=== PATIENT | female | born 1990 | race Caucasian/White ===

== ENCOUNTER 2023-02-25 16:45 | Emergency (ER) | payer OTHER, SELFPAY ==
[2023-02-25 16:50] VITALS: BP 149/85; PULSE 82; RESP 18; TEMP 36.7; O2SAT 99
--- NOTE | 2023-02-25 17:00 | PC.NURSE ---
pt presents to ED because patient states for the last 2 days she has felt dehydrated because she states her kidneys are aching , her urine is dark in color, and she has had diarrhea for the last 2 days. pt did have gastric bypass surgery in february of 2020.
[2023-02-25] MEDS: 0.9 % SODIUM CHLORIDE 1,000 ML 999 ML IV (17:14)
[2023-02-25 17:49] LABS: Basophils Absolute Auto 0.1 10^3/uL (0.0-0.1); Basophils Percent Auto 0.6 % (0.2-2.0); Eosinophils Absolute Auto 0.2 10^3/uL (0.0-0.7); Eosinophils Percent Auto 2.4 % (0.9-7.0); Hematocrit 37.8 % (36.0-48.0); Hemoglobin 12.2 g/dL (12.0-16.0); Immature Granulocytes Abs Auto 0.04 10^3/uL (0.00-0.03); Immature Granulocytes Pct Auto 0.4 % (0.0-0.5); Lymphocytes Absolute Auto 2.2 10^3/uL (1.2-3.8); Lymphocytes Percent Auto 21.8 % (20.5-60.0); Mean Corpuscular HGB Conc 32.3 g/dL (29.9-35.2); Mean Corpuscular Hemoglobin 30.4 pg (26.7-34.0); Mean Corpuscular Volume 94.3 fL (81.0-99.0); Mean Platelet Volume 9.8 fL (9.5-13.5); Monocytes Absolute Auto 0.8 10^3/uL (0.3-0.8); Monocytes Percent Auto 7.7 % (1.7-12.0); Neutrophils Absolute Auto 6.8 10^3/uL (1.4-6.5); Neutrophils Percent Auto 67.1 % (43.0-75.0); Platelet Count 421 10^3/uL (150-450); Red Blood Count 4.01 10^6/uL (4.20-5.40); Red Cell Distribution Width 14.8 % (11.0-15.0); White Blood Count 10.2 10^3/uL (4.0-11.0)
[2023-02-25 18:05] LABS: Alanine Aminotransferase 33 U/L (14-59); Albumin Globulin Ratio 1.1; Albumin Level 3.9 g/dL (3.4-5.0); Alkaline Phosphatase 79 U/L (46-116); Anion Gap 13.7; Aspartate Amino Transferase 22 U/L (15-37); BUN Creatinine Ratio 15.3; Bilirubin Total 0.4 mg/dL (0.2-1.0); Calcium 8.6 mg/dL (8.5-10.1); Carbon Dioxide 25.4 mmol/L (21.0-32.0); Chloride 105 mmol/L (98-107); Estimated GFR (African America >60 (>=60); Estimated GFR (Non-African Ame >60 (>=60); Globulin 3.5 g/dL; Glucose 77 mg/dL (74-106); Potassium 4.1 mmol/L (3.5-5.1); Sodium 140 mmol/L (136-145); Total Protein 7.4 g/dL (6.4-8.2)
[2023-02-25 18:06] LABS: Clarity Urine SLIGHTLY CLOUDY (CLEAR); Color Urine RED (YELLOW)
[2023-02-25 18:07] LABS: Bilirubin Urine COLOR INTERFERENCE (NEGATIVE); Blood Urine COLOR INTERFERENCE (NEGATIVE); Glucose Urine UA COLOR INTERFERENCE mg/dL (NEGATIVE); Ketones Urine COLOR INTERFERENCE mg/dL (NEGATIVE); Leukocyte Esterase Urine COLOR INTERFERENCE (NEGATIVE); Nitrite Urine COLOR INTERFERENCE (NEGATIVE); Protein Urine COLOR INTERFERENCE mg/dL (NEG/TRACE); Specific Gravity Urine 1.025 (1.005-1.025); Urine Microscopic Indicated YES; Urobilinogen Urine COLOR INTERFERENCE EU/dL (0.2-1.0); pH Urine COLOR INTERFERENCE (5.0-9.0)
--- NOTE | 2023-02-25 18:10 | ED.GENADUL1 ---
HPI - General Adult General Chief complaint: Nausea/Vomiting/Diarrhea Stated complaint: Dehydrated Time Seen by Provider: 02/25/23 16:54 Source: patient History of Present Illness HPI narrative: Patient with diarrhea but no vomiting or nausea. She said that she has been hydrating but is still concerned that she is dehydrated. She denied any ill exposures, eating spoiled food, recent foreign travel or drinking non tap or non bottled water. She had blood in urine this morning and had some pain across the low back. She said that she passed a stone recently = 2 days ago. No abdominal pain. Related Data Home Medications Medication Instructions Recorded Confirmed dextroamphetamine-amphetamine 30 30 mg PO DAILY 02/25/23 02/25/23 mg tablet (Adderall) methocarbamol 500 mg tablet 500 mg PO .qhs 02/25/23 02/25/23 pregabalin 165 mg tablet, extended 165 mg PO DAILY 02/25/23 02/25/23 release 24 hr (Lyrica CR) Previous Rx's Medication Instructions Recorded ondansetron 4 mg disintegrating 4 mg PO Q6H PRN nausea and 02/25/23 tablet vomiting #14 tabs tamsulosin 0.4 mg capsule (Flomax) 0.4 mg PO DAILY #20 caps 02/25/23 Allergies Allergy/AdvReac Type Severity Reaction Status Date / Time acetaminophen [From Percocet] AdvReac Intermediate Verified 02/25/23 16:49 oxycodone [From Percocet] AdvReac Intermediate Verified 02/25/23 16:49 Exam Narrative Exam Narrative: Nurses notes and vital signs reviewed and patient is not hypoxic. afebrile General: Well-appearing and in no apparent distress. Skin: Warm, dry, no pallor noted. No rash to back. Eye: Pupils are equal, round and EOMI. No scleral icterus. Cardiovascular: Regular Rate and Rhythm without murmur, gallop or rub. Respiratory: No accessory muscle use or respiratory distress. Lungs are clear to auscultation, no wheezing, rales or rhonchi Back: No midline thoracic or lumbar vertebral tenderness. No CVA tenderness Musculoskeletal: normal ROM GI: Abdomen is soft, non-distended. Normal bowel sounds. No tenderness to palpation. No rebound, guarding, or rigidity noted. Neurological: A&O x4. No cranial nerve dysfunction observed. No truncal ataxia. Moves all extremities. Sensation intact. Psychiatric: Cooperative and interactive. Normal mood and affect. Constitutional Vital Signs, click to edit/add: Last Vital Signs Temp 98.1 F 02/25/23 16:50 Pulse 82 02/25/23 16:50 Resp 18 02/25/23 16:50 BP 149/85 H 02/25/23 16:50 Pulse Ox 99 02/25/23 16:50 O2 Del Method Room Air 02/25/23 16:50 Course Vital Signs Vital signs: Vital Signs Temperature 98.1 F 02/25/23 16:50 Pulse Rate 82 02/25/23 16:50 Respiratory Rate 18 02/25/23 16:50 Blood Pressure 149/85 H 02/25/23 16:50 Pulse Oximetry 99 02/25/23 16:50 Oxygen Delivery Method Room Air 02/25/23 16:50 Temperature 98.1 F 02/25/23 16:50 Pulse Rate 82 02/25/23 16:50 Respiratory Rate 18 02/25/23 16:50 Blood Pressure 149/85 H 02/25/23 16:50 Pulse Oximetry 99 02/25/23 16:50 Oxygen Delivery Method Room Air 02/25/23 16:50 Medical Decision Making MDM Narrative Medical decision making narrative: blood drawn and sent for testing. Urine also obtained and sent for testing. Urine had blood and therefore the urinalysis was not able to be obtained because of that. CBC and CMP were unremarkable. The patient felt better after receiving normal saline IV fluid and she was discharged home with a prescription for Zofran in case she should develop any nausea associated with her diarrhea and a prescription for Flomax. Lab Data Lab results reviewed: Yes I reviewed the patient's lab results Labs: Lab Results 02/25/23 02/25/23 Range/Units 16:55 17:10 WBC 10.2 (4.0-11.0) 10^3/uL RBC 4.01 L (4.20-5.40) 10^6/uL Hgb 12.2 (12.0-16.0) g/dL Hct 37.8 (36.0-48.0) % MCV 94.3 (81.0-99.0) fL MCH 30.4 (26.7-34.0) pg MCHC 32.3 (29.9-35.2) g/dL RDW 14.8 (11.0-15.0) % Plt Count 421 (150-450) 10^3/uL MPV 9.8 (9.5-13.5) fL Neut % (Auto) 67.1 (43.0-75.0) % Lymph % (Auto) 21.8 (20.5-60.0) % [place] % (Auto) 7.7 (1.7-12.0) % Eos % (Auto) 2.4 (0.9-7.0) % Baso % (Auto) 0.6 (0.2-2.0) % Neut # (Auto) 6.8 H (1.4-6.5) 10^3/uL Lymph # (Auto) 2.2 (1.2-3.8) 10^3/uL [place] # (Auto) 0.8 (0.3-0.8) 10^3/uL Eos # (Auto) 0.2 (0.0-0.7) 10^3/uL Baso # (Auto) 0.1 (0.0-0.1) 10^3/uL Abs Immat Gran (auto) 0.04 H (0.00-0.03) 10^3/uL Imm/Tot Granulo (auto) 0.4 (0.0-0.5) % Sodium 140 (136-145) mmol/L Potassium 4.1 (3.5-5.1) mmol/L Chloride 105 (98-107) mmol/L Carbon Dioxide 25.4 (21.0-32.0) mmol/L Anion Gap 13.7 BUN 9.0 (7.0-18.0) mg/dL Creatinine 0.59 (0.55-1.02) mg/dL Est GFR ( Amer) >60 (>=60) Est GFR (Non-Af Amer) >60 (>=60) BUN/Creatinine Ratio 15.3 Glucose 77 (74-106) mg/dL Calcium 8.6 (8.5-10.1) mg/dL Total Bilirubin 0.4 (0.2-1.0) mg/dL AST 22 (15-37) U/L ALT 33 (14-59) U/L Alkaline Phosphatase 79 (46-116) U/L Total Protein 7.4 (6.4-8.2) g/dL Albumin 3.9 (3.4-5.0) g/dL Globulin 3.5 g/dL Albumin/Globulin Ratio 1.1 Urine Color Red A (YELLOW) Urine Clarity Slightly cloudy A (CLEAR) Urine pH Color interference A (5.0-9.0) Ur Specific [place] 1.025 (1.005-1.025) Urine Protein Color interference A (NEG/TRACE) mg/dL Urine Glucose (UA) Color interference A (NEGATIVE) mg/dL Urine Ketones Color interference A (NEGATIVE) mg/dL Urine Occult Blood Color interference A (NEGATIVE) Urine Nitrite Color interference A (NEGATIVE) Urine Bilirubin Color interference A (NEGATIVE) Urine Urobilinogen Color interference A (0.2-1.0) EU/dL Ur Leukocyte Esterase Color interference A (NEGATIVE) Discharge Plan Discharge Chief Complaint: Nausea/Vomiting/Diarrhea Clinical Impression: Diarrhea, Kidney stone Patient Disposition: Home, Self-Care Time of Disposition Decision: 18:13 Prescriptions / Home Meds: New ondansetron 4 mg tablet,disintegrating 4 mg PO Q6H PRN (Reason: nausea and vomiting) Qty: 14 0RF tamsulosin [Flomax] 0.4 mg capsule 0.4 mg PO DAILY Qty: 20 0RF No Action pregabalin [Lyrica CR] 165 mg tablet extended release 24 hr 165 mg PO DAILY Rx Instructions: must administer with a meal/food dextroamphetamine-amphetamine [Adderall] 30 mg tablet 30 mg PO DAILY methocarbamol 500 mg tablet 500 mg PO .qhs Instructions: Kidney Stones (ED), Acute Diarrhea (ED) Stand Alone Forms: Portal Instructions Referrals: Sunny Maciel MD [Primary Care Provider] - 1 week
[2023-02-25 18:22] LABS: RBC Urine >100 #/HPF (0-2)
[2023-02-25 18:23] LABS: Bacteria Urine TRACE #/HPF (NONE SEEN); Cast Seen? NONE SEEN #/LPF (NONE SEEN); Crystals Seen? None Seen #/HPF (None Seen); Mucus Urine NONE SEEN (NONE SEEN); Squamous Epithelial Cell Urine FEW #/LPF (NONE/RARE); Urine Culture Indicated YES
[2023-02-25 18:25] VITALS: BP 137/90; PULSE 70; O2SAT 99
== END 2023-02-25 18:27 | disposition home or self-care (01) ==
PROVIDERS: Emergency Provider Emergency Medicine; PCP Family Medicine
DX: R19.7 Diarrhea, unspecified (principal); N20.0 Calculus of kidney; Z79.899 Other long term (current) drug therapy
CPT/HCPCS: 36415; 80053; 81001; 85025; 87086; 87507; 99283

== ENCOUNTER 2023-08-24 15:17 | Outpatient (OUT) | payer OTHER, SELFPAY ==
[2023-08-24 16:00] LABS: Basophils Absolute Auto 0.1 10^3/uL (0.0-0.1); Basophils Percent Auto 0.6 % (0.2-2.0); Eosinophils Absolute Auto 0.3 10^3/uL (0.0-0.7); Eosinophils Percent Auto 3.4 % (0.9-7.0); Hemoglobin 11.6 g/dL (12.0-16.0); Immature Granulocytes Abs Auto 0.02 10^3/uL (0.00-0.03); Immature Granulocytes Pct Auto 0.3 % (0.0-0.5); Lymphocytes Absolute Auto 2.3 10^3/uL (1.2-3.8); Lymphocytes Percent Auto 28.9 % (20.5-60.0); Mean Corpuscular HGB Conc 32.2 g/dL (29.9-35.2); Mean Corpuscular Hemoglobin 30.6 pg (26.7-34.0); Mean Platelet Volume 9.3 fL (9.5-13.5); Monocytes Absolute Auto 0.6 10^3/uL (0.3-0.8); Monocytes Percent Auto 6.9 % (1.7-12.0); Neutrophils Absolute Auto 4.8 10^3/uL (1.4-6.5); Neutrophils Percent Auto 59.9 % (43.0-75.0); Platelet Count 395 10^3/uL (150-450); Red Blood Count 3.79 10^6/uL (4.20-5.40); Red Cell Distribution Width 12.3 % (11.0-15.0)
[2023-08-24 16:11] LABS: Erythrocyte Sedimentation Rate 17 mm/hr (<=20)
[2023-08-24 16:18] LABS: Uric Acid 2.8 mg/dL (2.6-6.0)
[2023-08-24 16:20] LABS: Alanine Aminotransferase 39 U/L (14-59); Albumin Level 3.4 g/dL (3.4-5.0); Alkaline Phosphatase 91 U/L (46-116); Anion Gap 12.5; Aspartate Amino Transferase 26 U/L (15-37); BUN Creatinine Ratio 13.6; Bilirubin Total 0.2 mg/dL (0.2-1.0); C Reactive Protein <0.50 mg/dL (<=0.50); Carbon Dioxide 28.3 mmol/L (21.0-32.0); Chloride 105 mmol/L (98-107); Estimated GFR (African America >60 (>=60); Estimated GFR (Non-African Ame >60 (>=60); Globulin 3.5 g/dL; Glucose 103 mg/dL (74-106); Potassium 3.8 mmol/L (3.5-5.1); Sodium 142 mmol/L (136-145); Total Protein 6.9 g/dL (6.4-8.2)
[2023-08-26 05:07] LABS: Rheumatoid Factor (RF) <10.0 IU/mL (<14.0)
[2023-08-26 06:10] LABS: Antistreptolysin O Ab 217.5 IU/mL (0.0-200.0)
[2023-08-26 14:10] LABS: Antinuclear Antibodies, IFA Negative (.)
== END 2023-08-24 15:18 | disposition home or self-care (01) ==
LOC: LAB 15:18
PROVIDERS: PCP Family Medicine; Visit Provider Family Medicine
DX: M79.7 Fibromyalgia (principal); M16.9 Osteoarthritis of hip, unspecified; M17.9 Osteoarthritis of knee, unspecified
CPT/HCPCS: 36415; 80053; 84550; 85025; 85652; 86038; 86060; 86140; 86431

== ENCOUNTER 2023-10-18 08:46 | Outpatient (OUT) | payer OTHER, SELFPAY ==
--- NOTE | 2023-10-18 08:49 | CT_ITS ---
The [address] [address] Patient Name: AISHWARYA NEFF MRN: [id number] date: 1990 Sex: F Assigned Patient Location: MRI Current Patient Location: MRI Accession/Order Number: [id number] Exam Date: 10/18/2023 09:43 Report Date: 10/19/2023 05:57 At the request of: BIA FRANZ Procedure: CT hip LT wo con EXAMINATION: CT hip RT wo con, CT hip LT wo con HISTORY: Spina Bifida Q05.9, Pain In Hip COMPARISON: No relevant comparison available. TECHNIQUE: Multi-planar CT images were created without and/or with IV contrast according to examination type. Dose reduction techniques were achieved by using automated exposure control and/or adjustment of mA and/or kV according to patient size and/or use of iterative reconstruction technique. FINDINGS: BONES: No fracture, dislocation, or articular surface irregularity. No significant joint space narrowing. No bone lesion or appreciable developmental abnormality. SOFT TISSUES: Negative. No visible soft tissue swelling. EFFUSION: None visible. OTHER: Negative. CT/CT hip LT wo con IMPRESSION: 1. Normal CT appearance of the right and left hips. Electronically authenticated by: ALISON TONEY Date: 10/19/2023 05:57
--- NOTE | 2023-10-18 08:49 | MR_ITS ---
The [address] [address] Patient Name: AISHWARYA NEFF MRN: [id number] date: 1990 Sex: F Assigned Patient Location: MRI Current Patient Location: Accession/Order Number: [id number] Exam Date: 10/18/2023 09:00 Report Date: 10/19/2023 05:51 At the request of: BIA FRANZ Procedure: MR lumbar spine wo con EXAMINATION: MR lumbar spine wo con HISTORY: Spina Bifida Q05.9, Pain In Hip COMPARISON: No relevant comparison available. TECHNIQUE: A variety of imaging planes and parameters were utilized for visualization of suspected pathology. FINDINGS: For the purposes of numbering, sagittal T2 image # 8 extends from the T11 vertebral body superiorly to the S3 level inferiorly. PARASPINAL AREA: Normal with no visible mass. BONES: No fracture, pars defect, or osseous lesion. CORD/CAUDA EQUINA: Normal caliber, contour, and signal intensity. Cord terminates posterior to L1 DISC LEVELS: 12-L1: No significant disc/facet abnormality, spinal stenosis, or foraminal stenosis. L1-L2: No significant disc/facet abnormality, spinal stenosis, or foraminal stenosis. L2-L3: No significant disc/facet abnormality, spinal stenosis, or foraminal stenosis. L3-L4: No significant disc/facet abnormality, spinal stenosis, or foraminal stenosis. L4-L5: No significant disc/facet abnormality, spinal stenosis, or foraminal stenosis. L5-S1: Posterior central disc protrusion projecting 5 mm into the central canal without significant central canal or foramen narrowing. Moderate disc height reduction. Mild degenerative facet arthropathy bilaterally. MR/MR lumbar spine wo con IMPRESSION: 1. Appropriate termination of the spinal cord posterior to L1. Unremarkable cord and cauda equina. 2. L5-S1 posterior disc protrusion without significant central canal or foraminal stenosis. Electronically authenticated by: ALISON TONEY Date: 10/19/2023 05:51
--- NOTE | 2023-10-18 08:49 | CT_ITS ---
The [address] [address] Patient Name: AISHWARYA NEFF MRN: [id number] date: 1990 Sex: F Assigned Patient Location: MRI Current Patient Location: MRI Accession/Order Number: [id number] Exam Date: 10/18/2023 09:43 Report Date: 10/19/2023 05:57 At the request of: BIA FRANZ Procedure: CT hip RT wo con EXAMINATION: CT hip RT wo con, CT hip LT wo con HISTORY: Spina Bifida Q05.9, Pain In Hip COMPARISON: No relevant comparison available. TECHNIQUE: Multi-planar CT images were created without and/or with IV contrast according to examination type. Dose reduction techniques were achieved by using automated exposure control and/or adjustment of mA and/or kV according to patient size and/or use of iterative reconstruction technique. FINDINGS: BONES: No fracture, dislocation, or articular surface irregularity. No significant joint space narrowing. No bone lesion or appreciable developmental abnormality. SOFT TISSUES: Negative. No visible soft tissue swelling. EFFUSION: None visible. OTHER: Negative. CT/CT hip RT wo con IMPRESSION: 1. Normal CT appearance of the right and left hips. Electronically authenticated by: ALISON TONEY Date: 10/19/2023 05:57
== END 2023-10-18 08:47 | disposition home or self-care (01) ==
LOC: MRI 08:46
PROVIDERS: PCP Family Medicine; Visit Provider Family Medicine
DX: Q05.9 Spina bifida, unspecified (principal); M25.559 Pain in unspecified hip
CPT/HCPCS: 72148; 73700

== ENCOUNTER 2023-11-07 14:55 | Outpatient (RCR) | payer OTHER, SELFPAY | END 2023-11-08 16:23 | disposition home or self-care (01) | LOC: PT 14:55 | PROVIDERS: PCP Family Medicine; Visit Provider Family Medicine | DX: M16.9 Osteoarthritis of hip, unspecified (principal); M25.559 Pain in unspecified hip; M54.50 Low back pain, unspecified | CPT/HCPCS: 97162 ==

== ENCOUNTER 2023-11-18 10:05 | Outpatient (OUT) | payer OTHER, SELFPAY ==
--- NOTE | 2023-11-18 | XR_ITS ---
The [address] [address] Patient Name: AISHWARYA NEFF MRN: [id number] date: 1990 Sex: F Assigned Patient Location: Current Patient Location: Accession/Order Number: [id number] Exam Date: 11/18/2023 10:35 Report Date: 11/21/2023 07:54 At the request of: ROSA GRANDA Procedure: XR lumbar spine min 4V EXAMINATION: XR lumbar spine min 4V HISTORY: LUMBAR SPINE PAIN COMPARISON: No relevant comparison available. FINDINGS: BONES: Neutral projection demonstrates normal alignment of the lumbar spine with no acute fracture or spondylolisthesis. Mild degenerative spondylosis and facet osteoarthropathy. DISC SPACES: Normal. No significant disc height narrowing, subluxation, or endplate abnormality. PARASPINOUS: Negative. No paraspinous abnormality is seen. OTHER: No transient spondylolisthesis with flexion or extension XR/XR lumbar spine min 4V IMPRESSION: Mild degenerative changes with no dynamic instability Electronically authenticated by: SANDRA VERDIN Date: 11/21/2023 07:54
--- OUTSIDE RECORDS SUMMARY | 2023-11-18 10:14 | XMS_ITS | CCD ---
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 Name Role Phone FRANCIS SILVA Unavailable Unavailable MISC, DR GR Admitting Unavailable MISC, DR GR Attending Unavailable HOY, DR AMEZQUITA Primary Care Unavailable MISC, DR GR Consulting Unavailable MISC, DR GR Admitting Unavailable MISC, DR GR Attending Unavailable HOY, DR AMEZQUITA Primary Care Unavailable MISC, DR GR Consulting Unavailable GABRIELLEY, DR AMEZQUITA Admitting Unavailable HOY, DR AMEZQUITA Attending Unavailable GABRIELLEY, DR AMEZQUITA Primary Care Unavailable HOY, DR AMEZQUITA Consulting Unavailable OSEI, DR AMEZQUITA Primary Care Unavailable MICHELLE WHITNEY Admitting Unavailable DEVONTE, MICHELLE Attending Unavailable JAEAUDREY SWEENEY Consulting Unavailable MICHELLE WHITNEY Consulting Unavailable OSEI, DR AMEZQUITA Primary Care Unavailable PAY, DR ODOM Admitting Unavailable PAY, DR ODOM Attending Unavailable GRECHNY, TODD SIMONS Consulting Unavailable GABRIELLEY, DR AMEZQUITA Admitting Unavailable HOY, DR AMEZQUITA Attending Unavailable GABRIELLEY, DR AMEZQUITA Primary Care Unavailable GABRIELLEY, DR AMEZQUITA Consulting Unavailable WEST, DR SANDRA Ahmadi Consulting Unavailable CHINA, DR BOBO Admitting Unavailable CHINA, DR BOBO Attending Unavailable OSEI, DR AMEZQUITA Primary Care Unavailable CHINA, DR BOBO Consulting Unavailable CHINA, DR BOBO Admitting Unavailable CHINA, DR BOBO Attending Unavailable OSEI, DR AMEZQUITA Primary Care Unavailable CHINA, DR BOBO Consulting Unavailable OSEI, DR AMEZQUITA Admitting Unavailable OSEI, DR AMEZQUITA Attending Unavailable OSEI, DR AMEZQUITA Primary Care Unavailable OSEI, DR AMEZQUITA Consulting Unavailable ZIEBER, DR ALISON Rico Consulting Unavailable Bia Maciel MD Primary Care Provider [phone] JAROD WEEKS Attending Unavailable BIA MACIEL Referring Unavailable BIA MACIEL Primary Care Unavailable JAROD WEEKS Attending Unavailable HOY, BIA M Referring Unavailable HOY, BIA M Primary Care Unavailable JAROD WEEKS Referring Unavailable HOY, BIA M Primary Care Unavailable HOY, BIA M Referring Unavailable HOY, BIA M Primary Care Unavailable EMCH, LAURENT NOLAN Referring Unavailabl e HOY, BIA M Primary Care Unavailable EMCH, LAURENT NOLAN Referring Unavailabl e HOY, BIA M Primary Care Unavailable EMCH, LAURENT NOLAN Referring Unavailabl e HOY, BIA M Primary Care Unavailable EMCH, LAURENT NOLAN Referring Unavailabl e HOY, BIA M Primary Care Unavailable EMCH, LAURENT NOLAN Referring Unavailabl e HOY, BIA M Primary Care Unavailable Unavailable Primary Care Provider UnavailWILL Espinosa Attending Unavailable DEIRDRE CHAVEZ Attending Unavailable OSEI, BIA M Referring Unavailable Allergies Allergy Classification Reported Allergen(s) Allergy Type Date of Onset Reaction(s) Facility (3 sources) acetaminophen / oxyCODONE; Translations: [OXYCODONE-ACETAM INOPHEN] Drug Allergy 8 [facility] Repository (1 source) Acetaminophen / oxyCODONE Drug Allergy 5 [facility] Repository (3 sources) oxyCODONE; Translations: [OXYCODONE HCL] Drug Allergy 2 Itching, GI Disturbance [facility] Medications Current Medications Medication Drug Class(es) Dates Sig (Normalized) Sig (Original) amphetamine aspartate 7.5 mg / amphetamine sulfate 7.5 mg / dextroamphetamine saccharate 7.5 mg / dextroamphetamine sulfate 7.5 mg oral tablet (2 sources) Central Nervous System Stimulant Start: 10-03-2023 take 1 tablet by mouth once Amphetamine-Dext roamphetamine (ADDERALL) 30 mg tablet Take 1 tablet by mouth every afternoon. 0 10/03/2023 Active Start: 08-19-2022 take 1 tablet by kelly th in the morning dextroamphetamine-amphetamine (ADDERALL) 30 mg tablet Take 1 tablet (30 mg total) by mouth in the morning. 0 08/19/2022 Active cetirizine hydrochloride 10 mg oral tablet (1 source) Histamine-1 Receptor Antagonist Start: 11-02-2022 take 1 tablet by mouth in the morning cetirizine (ZyrTEC) 10 mg tablet Indications: Allergic rhinitis due to animal dander Take 1 tablet (10 mg total) by mouth in the morning. 90 tablet 3 11/02/2022 Active [id number] 0.3 ml EPINEPHrine 1 mg/ml auto-injector (1 source) alpha-Adrenergic Agonist, beta-Adrenergic Agonist, Catecholamine Start: 11-02-2022 EPINEPHrine (EPIPEN) 0.3 mg/0.3 mL auto-injector Indications: Adverse reaction to food, initial encounter Inject 0.3 mL (0.3 mg total) into the appropriate muscle as needed (anaphylaxis). 2 each 1 11/02/2022 Active ergocalciferol 1.25 mg oral capsule (1 source) Provitamin D2 Compound Start: 08-31-2022 ergocalciferol (VITAMIN D2) 1,250 mcg (50,000 unit) capsule Indications: Vitamin D deficiency Capsule weekly for 8 weeks then once monthly 12 capsule 0 08/31/2022 Active fluticasone propionate 0.05 mg/actuat metered dose nasal spray (1 source) Corticosteroid Start: 11-02-2022 take 2 spray(s) nasal route in the morning fluticasone propionate (FLONASE) 50 mcg/actuation nasal spray Indications: Allergic rhinitis due to animal dander Administer 2 sprays into each nostril in the morning. 16 mL 12 11/02/2022 Active methocarbamol 750 mg oral tablet (3 sources) Muscle Relaxant Start: 09-08-2023 take 1 tablet by mouth once daily at bedtime methocarbamol (ROBAXIN) 750 mg tablet Take 750 mg by mouth daily at bedtime. 0 09/08/2023 Active Start: 11-16-2022 End: 05-31-2023 take 1 tablet by mouth once daily at bedtime methocarbamoL (ROBAXIN) 500 mg tablet Indications: Fibromyalgia Take 1 tablet (500 mg total) by mouth once daily at bedtime. 90 tablet 1 05/31/2023 Active Naltrexone (1 source) Opioid Antagonist take 4 mg by mouth in the morning naltrexone HCl (NALTREXONE ORAL) Take 4 mg by mouth in the morning. 0 Active pregabalin 75 mg oral capsule (3 sources) Start: 09-08-2023 take 1 capsule by mouth once daily in the evening pregabalin (LYRICA) 75 mg capsule TAKE 1 CAPSULE BY MOUTH ONCE DAILY at EIGHT IN THE EVENING 0 09/08/2023 Active Start: 05-31-2023 pregabalin (LY JORDAN) 50 mg capsule Indications: Fibromyalgia One capsule at 8 PM each night 90 capsule 1 05/31/2023 Active Start: 11-16-2022 End: 05-31-2023 pregabalin (LYRICA) 25 mg ca psule Indications: Fibromyalgia One capsule at 8 PM each night 30 capsule 5 11/16/2022 05/31/2023 Discontinued (Reorder) vitamin b12 1 mg/ml injectable solution (2 sources) Vitamin B12 Start: 09-21-2022 End: 05-31-2023 cyanocobalamin (VITAMIN B-12) 1,000 mcg/mL injection Indications: Vitamin B 12 deficiency One 1000 mcg every other day for 10 days,then once weekly for 4 weeks then once monthly 3 mL 3 05/31/2023 Active Completed/Discontinued Medications Medication Drug Class(es) Dates Sig (Normalized) Sig (Original) Lidocaine (4 sources) Antiarrhythmic, Amide Local Anesthetic Start: 05-31-2023 End: 05-31-2023 lidocaine (XYLOCAINE) 10 mg/mL (1 %) injection 40 mg Start: 05-31-2023 End: 05-31-2023 lidocaine (XYLOCAINE) 10 mg/ mL (1 %) injection 40 mg 1 ml triamcinolone acetonide 40 mg/ml injection (4 sources) Corticosteroid Start: 05-31-2023 End: 05-31-2023 triamcinolone acetonide (KENALOG-40) injection 40 mg Problems Active Problems Problem Classification Problem Date Documented Da te Episodic/Chronic Deficiency and other anemia (1 source) Iron deficiency anemia secondary to blood loss (chronic); Translations: [Iron deficiency anemia secondary to blood loss (chronic)] Onset: 09-21-2022 Chronic Deficiency and other anemia (1 source) Anemia, unspecified; Translations: [ANEMIA UNSPECIFIED] Onset: 09-16-2021 Episodic Diabetes mellitus without complication (1 source) Other abnormal glucose; Translations: [OTHER ABNORMAL GLUCOSE] Onset: 09-16-2021 Episodic E Codes: Cut/pierceb (1 source) Contact with knife, initial encounter; Translations: [CONTACT WITH KNIFE INITIAL ENC] Onset: 11-25-2021 Episodic E Codes: Unspecified (1 source) Activity, cooking and baking; Translations: [ACTIVITY COOKING AND BAKING] Onset: 11-25-2021 Episodic Essential hypertension (1 source) Essential (primary) hypertension; Translations: [ESSENTIAL PRIMARY HYPERTENSION] Onset: 11-25-2021 Chronic Headache; including migraine (4 sources) Migraine, unspecified, not intractable, without status migrainosus; Translations: [MIGRAINE UNS NOT INTRACT W/O SM] Onset: 10-01-2021 Chronic Joint disorders and dislocations; trauma-related (4 sources) Unspecified internal derangement of right knee; Translations: [UNS INTERNAL DERANGEMENT RIGHT KNEE] Onset: 12-08-2020 Chronic Malaise and fatigue (2 sources) Weakness; Translations: [Other fatigue] Onset: 11-06-2021 Episodic Menstrual disorders (2 sources) Menorrhagia; Translations: [Excessive and frequent menstruation with regular cycle] Onset: 10-07-2022 10-07-2022 Chronic Nonspecific chest pain (1 source) Other chest pain; Translations: [Other chest pain] Onset: 03-10-2018 Episodic Nutritional deficiencies (2 sources) Vitamin D deficiency, unspecified; Translations: [Vitamin D deficiency] Onset: 09-16-2021 09-21-2022 Chronic Open wounds of extremities (4 sources) Laceration without foreign body of left ring finger without damage to nail, initial encounter; Translations: [LAC NO FB LT RF NO DMG NAIL INITIAL] Onset: 11-23-2021 Episodic Other aftercare (1 source) Other technician terminal and repeater (current) drug therapy; Translations: [OTH MACHINE PIE MAKER CURRENT DRUG THERAPY] Onset: 11-25-2021 Episodic Other connective tissue disease (2 sources) Fibromyalgia; Translations: [Fibromyalgia] Onset: 09-21-2022 05-31-2023 Episodic Other connective tissue disease (2 sources) Trochanteric bursitis; Translations: [Trochanteric bursitis, right hip] Onset: 11-16-2022 05-31-2023 Episodic Other connective tissue disease (2 sources) Bursitis of knee; Translations: [Other bursitis of knee, unspecified knee] Onset: 11-16-2022 05-31-2023 Episodic Other gastrointestinal disorders (4 sources) Intestinal malabsorption, unspecified; Translations: [INTESTINAL MALABSORPTION UNS] Onset: 03-10-2021 Chronic Other gastrointestinal disorders (1 source) Celiac disease; Translations: [CELIAC DISEASE] Onset: 03-17-2021 Chronic Other nervous system disorders (4 sources) Anesthesia of skin; Translations: [ANESTHESIA OF SKIN] Onset: 11-03-2021 Episodic Other nervous system disorders (1 source) Unspecified disturbances of skin sensation; Translations: [UNS DISTURBANCES OF SKIN SENSATION] Onset: 10-02-2021 Episodic Other non-traumatic joint disorders (1 source) Hypermobility of joint; Translations: [Joint derangement, unspecified] 10-19-2023 Episodic Residual codes; unclassified (1 source) Acquired absence of other specified parts of digestive tract; Translations: [ACQ ABSENCE OTH PART DIGESTV TRACT] Onset: 11-25-2021 Episodic Unclassified (1 source) Outpatient Infusion Onset: 09-19-2023 Past or Other Problems Problem Classification Problem Date Documented Da te Episodic/Chronic Abdominal pain (4 sources) Unspecified abdominal pain; Translations: [UNSPECIFIED ABDOMINAL PAIN] Onset: 01-02-2021 Episodic Allergic reactions (1 source) Urticaria; Translations: [Urticaria, unspecified] Onset: 09-21-2022 09-21-2022 Episodic Calculus of urinary tract (1 source) Calculus of kidney; Translations: [CALCULUS OF KIDNEY] Onset: 01-06-2021 Episodic Deficiency and other anemia (5 sources) Iron deficiency anemia, unspecified; Translations: [IRON DEFICIENCY ANEMIA UNSPECIFIED] Onset: 02-10-2021 Episodic Deficiency and other anemia (1 source) Iron deficiency anemia; Translations: [Iron deficiency anemia, unspecified] Onset: 09-21-2022 09-21-2022 Episodic Diseases of mouth; excluding dental (1 source) Xerostomia; Translations: [Dry mouth, unspecified] Onset: 09-21-2022 09-21-2022 Episodic Immunizations and screening for infectious disease (2 sources) Encounter for immunization; Translations: [MEDICAL OFFICE REPRESENTATIVE antibody positive] Onset: 11-25-2021 09-21-2022 Episodic Nausea and vomiting (1 source) Nausea with vomiting, unspecified; Translations: [NAUSEA WITH VOMITING UNSPECIFIED] Onset: 01-06-2021 Episodic Nutritional deficiencies (3 sources) Cobalamin deficiency; Translations: [Deficiency of other specified B group vitamins] Onset: 09-21-2022 05-31-2023 Episodic Other connective tissue disease (1 source) Trochanteric bursitis, right hip; Translations: [Trochanteric bursitis, right hip] Onset: 11-16-2022 Episodic Other connective tissue disease (1 source) Trochanteric bursitis, left hip; Translations: [Trochanteric bursitis, left hip] Onset: 11-16-2022 Episodic Other connective tissue disease (2 sources) Fibromyalgia; Translations: [Fibromyalgia] Onset: 09-21-2022 Episodic Other connective tissue disease (1 source) Other bursitis of knee, unspecified knee; Translations: [Other bursitis of knee, unspecified knee] Onset: 11-16-2022 Episodic Other gastrointestinal disorders (1 source) Bariatric surgery status; Translations: [BARIATRIC SURGERY STATUS] Onset: 03-19-2021 Episodic Other skin disorders (1 source) Eruption; Translations: [Rash and other nonspecific skin eruption] Onset: 09-21-2022 09-21-2022 Episodic Results Test Name Value Interpretation Reference Range Facility XR HIPS BILAT W OR WO PELVIS 3-4 VWSon 09-13-2023 XR HIPS BILAT W OR WO PELVIS 3-4 VWS XR HIPS BILAT W OR WO PELVIS 3-4 VWS XR HIPS BILAT W OR WO PELVIS 3-4 VWS CLINICAL HISTORY: Left hip pain COMPARISON: None. FINDINGS: Frontal view of the pelvis and 2 views of each hip are obtained. Soft tissues: Nonobstructive bowel gas pattern with moderate amount of fecal residue mixed with air within the colon and rectum. Small calcified phlebolith in the right pelvis. Osseous structures: No acute fracture. No destructive osseous lesion. Joints: No dislocation or malalignment. S1 spina bifida. IMPRESSION: * No acute fracture or malalignment. Finalized by Shahnaz Hou MD on 09/13/2023 9:36 PM Normal [facility] CBC AND AUTO DIFFon 09-10-19 24 ABSOLUTE BASOPHIL 0.1 X10E9/L Normal 0.0-0.2 [facility] Comment on above: Performed By: #### 2 276-4, 2132-9, FEPR, 2284-8, CBCA #### [facility] ([id number]) [address], [address] [place] [address] ABSOLUTE NEUTROPHIL 3.8 X10E9/L Normal 1.5-6.6 [facility] Comment on above: Performed By: #### 2 276-4, 9, FEPR, 2283-12, CBCA #### [facility] ([id number]) [address], [address] [place] [address] Basophils/100 WBC (Bld) 0.9 % Normal [facility] Comment on above: Performed By: #### 2 276-4, 2132-01, FEPR, 2283-12, CBCA #### [facility] ([id number]) [address], [address] [place] [address] Eosinophils (Bld) [#/Vol] 0.1 10*3/uL Normal 0.0-0.4 [facility] Comment on above: Performed By: #### 2 276-4, 2132-01, FEPR, 2283-12, CBCA #### [facility] ([id number]) [address], [address] [place] [address] Eosinophils/100 WBC (Bld) 1.5 % Normal [facility] Comment on above: Performed By: #### 2 276-4, 2132-01, FEPR, 2283-12, CBCA #### [facility] ([id number]) [address], [address] [place] [address] Erythrocyte distribution width (RBC) [Ratio] 13.0 % Normal 11.5-15.0 [facility] Comment on above: Performed By: #### 2 276-4, 2132-01, FEPR, 2283-12, CBCA #### [facility] ([id number]) [address], [address] [place] [address] Hematocrit (Bld) [Volume fraction] 38.3 % Normal 35-47 [facility] Comment on above: Performed By: #### 2 276-4, 9, FEPR, 2283-12, CBCA #### [facility] ([id number]) [address], [address] [place] [address] Hemoglobin (Bld) [Mass/Vol] 13.0 g/dL Normal 11.7-15.5 [facility] Comment on above: Performed By: #### 2 276-4, 2132-01, FEPR, 2283-12, CBCA #### [facility] ([id number]) [address], [address] [place] [address] Lymphocytes (Bld) [#/Vol] 1.5 10*3/uL Normal 1.0-3.5 [facility] Comment on above: Performed By: #### 2 276-4, 9, FEPR, 2283-12, CBCA #### [facility] ([id number]) [address], [address] [place] [address] Lymphocytes/100 WBC (Bld) 25.0 % Normal [facility] Comment on above: Performed By: #### 2 276-4, 2132-01, FEPR, 2283-12, CBCA #### [facility] ([id number]) [address], [address] [place] [address] MCH (RBC) [Entitic mass] 31.4 pg Normal 27-34 [facility] Comment on above: Performed By: #### 2 276-4, 9, FEPR, 2283-12, CBCA #### [facility] ([id number]) [address], [address] [place] [address] MCHC (RBC) [Mass/Vol] 34.1 g/dL Normal 32-36 [facility] Comment on above: Performed By: #### 2 276-4, 9, FEPR, 2283-12, CBCA #### [facility] ([id number]) [address], [address] [place] [address] MCV (RBC) [Entitic vol] 92 fL Normal 80-100 [facility] Comment on above: Performed By: #### 2 276-4, 9, FEPR, 2283-12, CBCA #### [facility] ([id number]) [address], [address] [place] [address] Monocytes (Bld) [#/Vol] 0.5 10*3/uL Normal 0-0.9 [facility] Comment on above: Performed By: #### 2 276-4, 2132-01, FEPR, 2283-12, CBCA #### [facility] ([id number]) [address] [place] [address] Monocytes/100 WBC (Bld) 8.6 % Normal [facility] Comment on above: Performed By: #### 2 276-4, 2132-01, FEPR, 2283-12, CBCA #### [facility] ([id number]) [address] [place] [address] Neutrophils/100 WBC (Bld) 64.0 % Normal [facility] Comment on above: Performed By: #### 2 276-4, 9, FEPR, 2283-12, CBCA #### [facility] ([id number]) [address], [address] [place] [address] Platelet mean volume (Bld) [Entitic vol] 7.6 fL Normal 7-12 [facility] Comment on above: Performed By: #### 2 276-4, 9, FEPR, 2283-12, CBCA #### [facility] ([id number]) [address], [address] [place] [address] Platelets (Bld) [#/Vol] 408 10*3/uL Normal 150-450 [facility] Comment on above: Performed By: #### 2 276-4, 9, FEPR, 228-8, CBCA #### [facility] ([id number]) [address], [facility] [address] [place] [address] RBC COUNT 4.16 X10E12/L Normal 3.80-5.20 [facility] Comment on above: Performed By: #### 2 276-4, 9, FEPR, 2283-8, CBCA #### [facility] ([id number]) [address], [address] [address] WBC (Bld) [#/Vol] 6.0 10*3/uL Normal 4.0-11.0 [facility] Comment on above: Performed By: #### 2 276-4, 9, FEPR, 2283-8, CBCA #### [facility] ([id number]) [address], [address] [address] FERRITINon 09-10-2023 Ferritin [Mass/Vol] 10 ng/mL Low 11-307 [facility] Comment on above: Performed By: #### 2 276-4, 2132-01, FEPR, 2283-8, CBCA #### [facility] ([id number]) [address] [address] Folate [Mass/Vol]on 09-10-19 24 FOLIC ACID 10.9 ng/mL Normal >5.8 [facility] Comment on above: Result Comment: NEW REFERENCE RANGE Performed By: #### 2 276-4, 9, FEPR, 228-8, CBCA #### [facility] ([id number]) [address], [address] [address] IRON PROFILEon 09-10-2023 Iron [Mass/Vol] 92 ug/dL Normal 50-170 [facility] Comment on above: Performed By: #### 2 276-4, 2132-9, FEPR, 2284-8, CBCA #### [facility] ([id number]) [address], [address] [place] [address] IRON BINDING 421 ug/dL Normal 250-425 [facility] Comment on above: Performed By: #### 2 276-4, 2131-9, FEPR, 2284-8, CBCA #### [facility] ([id number]) [address], [address] [place] [address] IRON SATURATION 22 % SATURATION Normal 15-50 [facility] Comment on above: Performed By: #### 2 276-4, 2131-9, FEPR, 2284-8, CBCA #### [facility] ([id number]) [address], [address] [place] [address] VITAMIN B12on 09-10-2023 Cobalamin (Vitamin B12) [Mass/Vol] 195 pg/mL Normal 180-914 [facility] Comment on above: Performed By: #### 2 276-4, 9, FEPR, 2284-8, CBCA #### [facility] ([id number]) [address], [address] [place] [address] [facility] ANITBODY TESTon 022 MuSK Antibodies <1.0 Normal [facility] Comment on above: Result Comment: Jun montenegro Range: Negative: <1.0 Positive: 1.0 or higher A positive result, in the context of congruent clinical findings, confirms the diagnosis of autoimmune MuSK myasthenia gravis. COMMENTS: - Myasthenia gravis (MG) is caused by auto-antibodies against proteins of the neuromuscular junction. Most cases (about 90%) of generalized MG are anti- acetylcholine receptor (AChR) antibody-positive.(1) - Of generalized MG patients who lack anti-AChR antibodies (AChR-seronegative), about 40% are positive for Muscle- Specific Kinase (MuSK) antibody.(1,2) - Though a positive MuSK result is specific for the diagnosis of MuSK MG, a negative MuSK result does not rule out a MG diagnosis. - MuSK antibody levels have been shown to correlate with disease severity.(3) Serial measurements may be useful to follow treatment. References: 1. Ismael-Samantha S et al. J Autoimmunity 2014;52:90-100. 2. Luzmaria DUVAL et al. PNAS 2013;110(26);99813-12025. 3. Baldevi E et al. Neurology 2006;67:505-507. This test was developed and its performance characteristics determined by [employer]. It has not been cleared or approved by the Food and Drug Administration. Performed By: #### M ERIK #### [facility] [address] [place] [address] Dr. Evens Bowden ACETYLCHOLINE RECEPTOR AB [place] [facility] 11-10-2021 AChR Binding Abs, Serum <0.03 Normal 0.00-0.24 [facility] Comment on above: Result Comment: Nega tive: 0.00 - 0.24 Borderline: 0.25 - 0.40 Positive: >0.40 Performed By: #### P JULIA MURRAY UMWARRENRO #### [facility] [address] [place] [address] Patria Mis AChR Blocking Abs, Serum 10 % Normal 0-25 [facility] Comment on above: Result Comment: Nega tive: 0 - 25 Borderline: 26 - 30 Positive: >30 Performed By: #### P JULIA MURRAY UMICRO #### [facility] [address] [place], [place] [id number] Patria Mis AChR Modulating Ab CANRGT Normal [facility] Comment on above: Result Comment: Test not performed. Unable to perform test due to current unavailability of reagents or discontinuation of test. Negative: <21 Equivocal: 21 - 25 Positive: >25 Effective March 25, 2021, test 438125 AChR Modulating Abs, Serum was made non-orderable due to an ongoing reagent issue. Specimens are stored frozen and can be referenced to [facility] to provide an AChR Modulating Ab result. Please contact [facility] Customer Service to add on [phone] Acetylcholine Receptor Modulating Antibody, if warranted. Performed By: #### P JULIA MURRAY UMICRO #### [facility] [address] [address] Patria Abebe LYME DISEASE AB EIA W REFLEX on 11-04-2021 Lyme Total Antibody,EIA Negative Normal Negative [facility] Comment on above: Result Comment: Lyme Antibody Negative No laboratory evidence of infection with B. burgdorferi (Lyme disease). Negative results may occur in patients recently infected (greater than or equal to 14 days) with B. burgdorferi. If recent infection is suspected, repeat testing on a new sample collected in 7 to 14 days is recommended. Performed By: #### JULIA GARCIA UMICRO #### [facility] [address] [place] [address] Patria Escobaren AMISHA EIA W/REFLEX 5 BIOMARKER Son 11-03-2021 AMISHA Direct Positive Abnormal Negative [facility] Comment on above: Performed By: #### JULIA GARCIA UMICRO #### [facility] [address] [place] [address] Patria Abebe Anti-DNA (DS) Ab Qn <1 Normal 0-9 [facility] Comment on above: Result Comment: Nega tive <5 Equivocal 5 - 9 Positive >9 Performed By: #### JULIA GARCIA UMICRO #### [facility] [address] [place] [address] Patria Abebe MEDICAL OFFICE REPRESENTATIVE Antibodies 2.4 AI Critically high 0.0-0.9 [facility] Comment on above: Performed By: #### JULIA GARCIA UMICRO #### [facility] [address] [place] [address] Patria Abebe SEE BELOW: Comment Normal [facility] Comment on above: Result Comment: Auto antibody Disease Association Condition Frequency --------- Antinuclear Antibody, SLE, mixed connective Direct (AMISHA-D) tissue diseases --------- dsDNA SLE 40 - 60% --------- Chromatin Drug induced SLE 90% SLE 48 - 97% --------- SSA (Ro) SLE 25 - 35% Sjogren's Syndrome 40 - 70% Lupus 100% --------- SSB (La) SLE 10% Sjogren's Syndrome 30% --------- Sm (anti-Hunter) SLE 15 - 30% --------- MEDICAL OFFICE REPRESENTATIVE Mixed Connective Tissue Disease 95% (U1 nRNP, SLE 30 - 50% anti-ribonucleoprotein) Polymyositis and/or Dermatomyositis 20% --------- Scl-70 (antiDNA Scleroderma (diffuse) 20 - 35% topoisomerase) Crest 13% --------- Kristie-1 Polymyositis and/or Dermatomyositis 20 - 40% --------- Centromere B Scleroderma - Crest variant 80% Performed By: #### JULIA GARCIA UMICRO #### [facility] [address] [place] [address] Patria Mis Sjogren's Anti-SS-A <0.2 Normal 0.0-0.9 [facility] Comment on above: Performed By: #### JULIA GARCIA UMICRO #### [facility] [address] [place] [address] Patria Mis Sjogren's Anti-SS-B <0.2 Normal 0.0-0.9 [facility] Comment on above: Performed By: #### JULIA GARCIA UMICRO #### [facility] [address] [place] [address] Patria Mis Hunter Antibodies <0.2 Normal 0.0-0.[address] [facility] Comment on above: Performed By: #### JULIA GARCIA UMICRO #### [facility] [address] [place] [address] Patria Mis CMV AB, IGGon 11-03-2021 Cytomegalovirus (CMV) Ab, IgG 5.70 U/mL Critically high 0.00-0.59 [facility] Comment on above: Result Comment: Nega tive <0.60 Equivocal 0.60 - 0.69 Positive >0.69 Performed By: #### JULIA GARCIA UMICRO #### [facility] [address] [place] [address] Patria Abebe SHIRA-MOTA VIRUS (EBV) AB PROFILEon 11-03-2021 EBV Ab VCA, IgG 122.0 U/mL Critically high 0.0-17.9 [facility] Comment on above: Result Comment: Nega tive <18.0 Equivocal 18.0 - 21.9 Positive >21.9 Performed By: #### Hugo VALENCIA #### [facility] [address] [place] [address] Dr. Evens Bowden EBV Ab VCA, IgM <36.0 Normal 0.0-35.9 [facility] Comment on above: Result Comment: Nega tive <36.0 Equivocal 36.0 - 43.9 Positive >43.9 Performed By: #### Hugo VALENCIA #### [facility] [address] [place] [address] Dr. Evens Bowden EBV Nuclear Antigen Ab, IgG 244.0 U/mL Critically high 0.0-17.9 [facility] Comment on above: Result Comment: Nega tive <18.0 Equivocal 18.0 - 21.9 Positive >21.9 Performed By: #### Hugo CORREIAB #### [facility] [address] [place] [address] Dr. Evens Bowden Interpretation: Comment Normal [facility] Comment on above: Result Comment: EBV Interpretation Chart [place]: Antibody Present + Antibody Absent - Interpretation VCA-IgM VCA-IgG EBNA-IgG . No previous infection/ - - - Susceptible Primary infection (new + + - or recent) Past Infection +or- + + See comment below* + - - *Results indicate infection with EBV at some time however cannot predict the timing of the infection since antibodies to EBNA usually develop after primary infection or, alternatively, approximately 5-10% of patients with EBV never develop antibodies to EBNA. Performed By: #### Hugo VALENCIA #### [facility] [address] [place] [address] Dr. Evens Bowden RHEUMATOID FACTORon 11-04-19 RA Latex Turbid. <10.0 Normal <14.[address] [facility] Comment on above: Performed By: #### Hugo VALENCIA #### [facility] [address] [place], [place] [address] Dr. Evens Bowden CPKon 11-02-2021 CK [Catalytic activity/Vol] 150 U/L Normal 26-192 [facility] Comment on above: Performed By: #### C K #### [facility] [address] [place], [place] [address] Dr. Evens Bowden MRI BRAIN WO W CONon 022 MRI BRAIN WO W CON EXAMINATION: MRI BRA IN WO W CON HISTORY: Migraine COMPARISON: No relevant comparison available. TECHNIQUE: A variety of imaging planes and parameters were utilized for visualization of suspected pathology. Images were performed with 17 ml Dotarem contrast. FINDINGS: CEREBRUM: No edema, hemorrhage, mass, acute infarction, or inappropriate atrophy. CEREBELLUM: No edema, hemorrhage, mass, acute infarction, or inappropriate atrophy. BRAINSTEM: No edema, hemorrhage, mass, acute infarction, or inappropriate atrophy. CSF SPACES: Ventricles, cisterns, and sulci are appropriate for age. No hydrocephalus, subarachnoid hemorrhage, or mass. SKULL: No mass or other significant visible lesion. SINUSES: Mild to moderate bilateral maxillary and ethmoid sinus disease ORBITS: Limited views are unremarkable. OTHER: No abnormal meningeal or parenchymal enhancement. IMPRESSION: Bilateral ethmoid sinus disease No acute intracranial abnormality Electronically authenticated by: SANDRA VERDIN Date: 2021-10-01 13:31 Normal [facility] MRI CSPINE WO W CONon 2021 MRI CSPINE WO W CON EXAMINATION: MRI CSP INE WO W CON HISTORY: Migraine , extremity weakness COMPARISON: No relevant comparison available. TECHNIQUE: A variety of imaging planes and parameters were utilized for visualization of suspected pathology prior to and after 17 ml intravenous Dotarem injection. FINDINGS: CRANIOCERVICAL AREA: Normal foramen magnum with no Chiari malformation. PARASPINAL AREA: Normal with no visible mass. BONES: Normal alignment with no acute fracture or spondylolisthesis. No bone edema. CORD: Normal caliber, contour, and signal intensity. CERVICAL DISC LEVELS: C2-C3: No significant disc/facet abnormality, spinal stenosis, or foraminal stenosis. C3-C4: No significant disc/facet abnormality, spinal stenosis, or foraminal stenosis. C4-C5: No significant disc/facet abnormality, spinal stenosis, or foraminal stenosis. C5-C6: No significant disc/facet abnormality, spinal stenosis, or foraminal stenosis. C6-C7: No significant disc/facet abnormality, spinal stenosis, or foraminal stenosis. C7-T1:. No significant disc/facet abnormality, spinal stenosis, or foraminal stenosis. IMPRESSION: No acute abnormality. Electronically authenticated by: SANDRA VERDIN Date: 2021-10-01 13:52 Normal [facility] INSULINon 09-11-2021 Insulin 5.2 uIU/mL Normal 2.6-24.9 [facility] Comment on above: Performed By: #### P REGU, ERUR, UMICRO #### [facility] [address] [place] [address] Patria Abebe CBC AUTO DIFFon 09-10-2021 BASO # 0.0 103/ul Normal 0.0-0.1 [facility] Comment on above: Performed By: #### C BC #### [facility] [address] [place] [address] Dr. Evens Bowden Basophils/100 WBC (Bld) 0.7 % Normal 0.2-2.0 [facility] Comment on above: Performed By: #### C BC #### [facility] [address] [place] [address] Dr. Evens Bowden EO # 0.1 103/ul Normal 0.0-0.7 [facility] Comment on above: Performed By: #### C BC #### [facility] [address] [place] [address] Dr. Evens Bowden Eosinophils/100 WBC (Bld) 2.6 % Normal 0.9-7.0 [facility] Comment on above: Performed By: #### C BC #### [facility] [address] [place] [address] Dr. Evens Bowden Erythrocyte distribution width (RBC) [Ratio] 13.7 % Normal 11.0-15.0 [facility] Comment on above: Performed By: #### C BC #### [facility] [address] [place] [address] Dr. Evens Bowden Hematocrit (Bld) [Volume fraction] 33.2 % Critically low 36.0-48.0 [facility] Comment on above: Performed By: #### C BC #### [facility] [address] [place] [address] [address] Evens Bowden Hemoglobin (Bld) [Mass/Vol] 10.4 g/dL Critically low 12.0-16.0 [facility] Comment on above: Performed By: #### C BC #### [facility] [address] [place] [address] [address] Evens Bowden IG # 0.02 10e3/ul Normal 0.00-0.03 [facility] Comment on above: Performed By: #### C BC #### [facility] [address] [place] [address] Dr. Evens Bowden IG % 0.4 % Normal 0.0-0.5 [facility] Comment on above: Performed By: #### C BC #### [facility] [address] [place] [address] Dr. Evens Bowden LYMPH # 2.0 103/ul Normal 1.2-3.8 [facility] Comment on above: Performed By: #### C BC #### [facility] [address] [place] [address] Dr. Evens Bowden Lymphocytes/100 WBC (Bld) 37.7 % Normal 20.5-60.0 [facility] Comment on above: Performed By: #### C BC #### [facility] [address] [place] [address] Dr. Evens Bowden MANUAL DIFF REQ NO Normal [facility] Comment on above: Performed By: #### C BC #### [facility] [address] [place] [address] Dr. Evens Bowden MCH (RBC) [Entitic mass] 27.2 pg Normal 26.7-34.0 [facility] Comment on above: Performed By: #### C BC #### [facility] [address] [place] [address] Dr. Evens Bowden MCHC (RBC) [Mass/Vol] 31.3 g/dL Normal 29.9-35.2 [facility] Comment on above: Performed By: #### C BC #### [facility] [address] [place] [address] [address] Evens Bowden MCV (RBC) [Entitic vol] 86.9 fL Normal 81.0-99.0 [facility] Comment on above: Performed By: #### C BC #### [facility] [address] [place] [address] [address] Evens Bowden MONO # 0.4 103/ul Normal 0.3-0.8 [facility] Comment on above: Performed By: #### C BC #### [facility] [address] [place] [address] [address] Evens Bowden Monocytes/100 WBC (Bld) 7.1 % Normal 1.7-12.0 [facility] Comment on above: Performed By: #### C BC #### [facility] [address] [place] [address] Dr. Evens Bowden NEUT # 2.8 103/ul Normal 1.4-6.5 [facility] Comment on above: Performed By: #### C BC #### [facility] [address] [place] [address] Dr. Evens Bowden Neutrophils/100 WBC (Bld) 51.5 % Normal 43.0-75.0 [facility] Comment on above: Performed By: #### C BC #### [facility] [address] [place] [address] Dr. Evens Bowden Platelet mean volume (Bld) [Entitic vol] 8.6 fL Critically low 9.5-13.5 [facility] Comment on above: Performed By: #### C BC #### [facility] [address] [place] [address] Dr. Evens Bowden PLT 428 103/ul Normal 150-450 [facility] Comment on above: Performed By: #### C BC #### [facility] [address] [place] [address] [address] Evens Bowden RBC 3.82 106/ul Critically low 4.20-5.40 [facility] Comment on above: Performed By: #### C BC #### [facility] [address] [place] [address] [address] Evens Bowden WBC 5.4 103/ul Normal 4.0-11.0 [facility] Comment on above: Performed By: #### C BC #### [facility] [address] [place] [address] Dr. Evens Bowden CRPon 09-10-2021 CRP [Mass/Vol] mg/L Normal <=1.0 [facility] Comment on above: Performed By: #### C BC #### [facility] [address] [place] [address] [address] Evens Bowden FREE THYROXINE INDEX T7on FTI 2.52 Normal [facility] Comment on above: Performed By: #### C BC #### [facility] [address] [place] [address] Dr. Evens Bwoden T3U 35.0 % Normal 23.5-40.5 [facility] Comment on above: Performed By: #### C BC #### [facility] [address] [place] [address] Dr. Evens Bowden T4 [Mass/Vol] 7.20 ug/dL Normal 5.53-11.00 [facility] Comment on above: Performed By: #### C BC #### [facility] [address] [place] [address] Dr. Evens Bowden GLYCOHEMOGLOBIN A1Con 2021 ADA RECOMMENDATION ADA THERAPEUTIC TARG ET 6.0 - 7.0 ACTION SUGGESTED > 7.0 Normal [facility] Comment on above: Performed By: #### P JULIA MURRAY UMICRO #### [facility] [address] [place] [address] Patria Mis Glucose [Mass/Vol] 117 mg/dL Normal [facility] Comment on above: Performed By: #### P JULIA MURRAY UMICRO #### [facility] [address] [place] [address] Patria Mis HbA1c (Bld) [Mass fraction] 5.7 % Normal <=6.0 [facility] Comment on above: Performed By: #### P REGU, SHOSHANAR, UMICRO #### [facility] [address] [place] [address] Patria Abebe IRONon 09-10-2021 Iron [Mass/Vol] 46.0 ug/dL Normal 37.0-170.0 [facility] Comment on above: Performed By: #### I MULUGETA PEARSON #### [facility] [address] [place] [address] [address] Evens Bowden LIPID PROFILEon 09-10-2021 CHOL-HDL RATIO NORM SEE BELOW Normal [facility] Comment on above: Result Comment: 3.3 - 4.4 LOW RISK 4.4 - 7.1 AVERAGE RISK 7.1 - 11.0 MODERATE RISK >11.0 HIGH RISK Performed By: #### C MP, TSH, T7, LIPID, CRP #### [facility] [address] [place] [address] [address] Evens Bowden Cholesterol [Mass/Vol] 130 mg/dL Normal <=200 [facility] Comment on above: Performed By: #### C MP, TSH, T7, LIPID, CRP #### [facility] [address] [place] [address] [address] Evens Bowden Cholesterol in HDL [Mass/Vol] 53 mg/dL Normal 40-60 [facility] Comment on above: Performed By: #### C MP, TSH, T7, LIPID, CRP #### [facility] [address] [place] [address] [address] Evens Bowden Cholesterol in LDL [Mass/Vol] 69.2 mg/dL Normal [facility] Comment on above: Performed By: #### C MP, TSH, T7, LIPID, CRP #### [facility] [address] [place] [address] [address] Evens Bowden Cholesterol.total/C holesterol in HDL [Mass ratio] 2.5 {ratio} Normal [facility] Comment on above: Performed By: #### C MP, TSH, T7, LIPID, CRP #### [facility] [address] [place] [address] [address] Evens Bowden HDL NORMAL > or = 60 mg/dl - LO W CARDIOVASCULAR RISK <40 mg/dl - HIGH CARDIOVASCULAR RISK Normal [facility] Comment on above: Performed By: #### C MP, TSH, T7, LIPID, CRP #### [facility] [address] [place] [address] [address] Evens Bowden LDL CALC NORMAL SEE BELOW Normal [facility] Comment on above: Result Comment: <100 mg/dl OPTIMAL 100 - 129 mg/dl NEAR OR ABOVE OPTIMAL 130 - 159 mg/dl BORDERLINE HIGH 160 - 189 mg/dl HIGH >190 mg/dl VERY HIGH Performed By: #### C MP, TSH, T7, LIPID, CRP #### [facility] [address] [place] [address] [address] Evens Bowden Triglyceride [Mass/Vol] 39 mg/dL Normal <=150 [facility] Comment on above: Performed By: #### C MP, TSH, T7, LIPID, CRP #### [facility] [address] [place] [address] [address] Evens Bowden VLDL CALC 7.8 mg/dL Normal [facility] Comment on above: Performed By: #### C MP, TSH, T7, LIPID, CRP #### [facility] [address] [place] [address] [address] Evens Bowden PROF 14(COMP METB)on 022 Albumin [Mass/Vol] 4.0 g/dL Normal 3.4-5.0 [facility] Comment on above: Performed By: #### C MP, TSH, T7, LIPID, CRP #### [facility] [address] [place] [address] [address] Evens Bowden Albumin/Globulin [Mass ratio] 1.1 {ratio} Normal [facility] Comment on above: Performed By: #### C MP, TSH, T7, LIPID, CRP #### [facility] [address] [place] [address] [address] Evens Bowden ALP [Catalytic activity/Vol] 84 U/L Normal 46-116 [facility] Comment on above: Performed By: #### C MP, TSH, T7, LIPID, CRP #### [facility] [address] [place] [address] [address] Evens Bowden ALT [Catalytic activity/Vol] 33 U/L Normal 14-59 [facility] Comment on above: Performed By: #### C MP, TSH, T7, LIPID, CRP #### [facility] [address] [place] [address] Dr. Evens Bowden Anion gap [Moles/Vol] 12.1 mmol/L Normal [facility] Comment on above: Performed By: #### C MP, TSH, T7, LIPID, CRP #### [facility] [address] [place] [address] Dr. Evens Bowden AST [Catalytic activity/Vol] 18 U/L Normal 15-37 [facility] Comment on above: Performed By: #### C MP, TSH, T7, LIPID, CRP #### [facility] [address] [place] [address] Dr. Evens Bowden Bilirubin [Mass/Vol] 0.5 mg/dL Normal 0.2-1.3 [facility] Comment on above: Performed By: #### C MP, TSH, T7, LIPID, CRP #### [facility] [address] [place] [address] Dr. Evens Bowden Calcium [Mass/Vol] 8.2 mg/dL Critically low 8.5-10.1 [facility] Comment on above: Performed By: #### C MP, TSH, T7, LIPID, CRP #### [facility] [address] [place] [address] Dr. Evens Bowden Chloride [Moles/Vol] 105 mmol/L Normal 98-107 [facility] Comment on above: Performed By: #### C MP, TSH, T7, LIPID, CRP #### [facility] [address] [place] [address] Dr. Evens Bowden CO2 [Moles/Vol] 26.3 mmol/L Normal 22.0-30.[address] [facility] Comment on above: Performed By: #### C MP, TSH, T7, LIPID, CRP #### [facility] [address] [place] [address] Dr. Evens Bowden Creatinine [Mass/Vol] 0.62 mg/dL Normal 0.52-1.04 [facility] Comment on above: Performed By: #### C MP, TSH, T7, LIPID, CRP #### [facility] [address] [place] [address] Dr. Evens Bowden EGFR-AF ROMANIAN >60 Normal >=[address] [facility] Comment on above: Performed By: #### C MP, TSH, T7, LIPID, CRP #### [facility] [address] [place] [address] Dr. Evens Bowden EGFR-NON AF ROMANIAN >60 Normal >=60 [facility] Comment on above: Performed By: #### C MP, TSH, T7, LIPID, CRP #### [facility] [address] [place] [address] Dr. Evens Bowden Globulin (S) [Mass/Vol] 3.5 g/dL Normal [facility] Comment on above: Performed By: #### C MP, TSH, T7, LIPID, CRP #### [facility] [address] [place] [address] Dr. Evens Bowden Glucose [Mass/Vol] 90 mg/dL Normal 74-106 [facility] Comment on above: Performed By: #### C MP, TSH, T7, LIPID, CRP #### [facility] [address] [place] [address] Dr. Evens Bowden Potassium [Moles/Vol] 4.4 mmol/L Normal 3.4-5.0 [facility] Comment on above: Performed By: #### C MP, TSH, T7, LIPID, CRP #### [facility] [address] [place] [address] Dr. Evens Bowden Protein [Mass/Vol] 7.5 g/dL Normal 6.1-8.2 [facility] Comment on above: Performed By: #### C MP, TSH, T7, LIPID, CRP #### [facility] [address] [place] [address] Dr. Evens Bowden Sodium [Moles/Vol] 139 mmol/L Normal 137-145 [facility] Comment on above: Performed By: #### C MP, TSH, T7, LIPID, CRP #### [facility] [address] [place] [address] Dr. Evens Bowden Urea nitrogen [Mass/Vol] 7.0 mg/dL Normal 7.0-18.0 [facility] Comment on above: Performed By: #### C MP, TSH, T7, LIPID, CRP #### [facility] [address] [place] [address] Dr. Evens Bowden Urea nitrogen/Creatinine [Mass ratio] 11.3 mg/mg Normal [facility] Comment on above: Performed By: #### C MP, TSH, T7, LIPID, CRP #### [facility] [address] [place] [address] Dr. Evens Bowden [facility] SED RATE 6 mm/hr Normal <=20 [facility] Comment on above: Performed By: #### M USKAB #### [facility] [address] [place] [address] Dr. Evens Bowden TSHon 09-10-2021 TSH 1.205 uIU/mL Normal 0.470-4.680 [facility] Comment on above: Performed By: #### C BC #### [facility] [address] [place] [address] Dr. Evens Bowden TSH RANGE SEE BELOW Normal [facility] Comment on above: Result Comment: <0.3 4 UIU/ml HYPERTHYROID 0.34-5.60 UIU/ml EUTHYROID >5.60 UIU/ml HYPOTHYROID Performed By: #### C BC #### [facility] [address] [place] [address] Dr. Evens Bowden VITAMIN D 25 OHon 09-10-2021 VIT D 25-OH 11.5 ng/mL Normal [facility] Comment on above: Performed By: #### I MICHEL, VITAD #### [facility] [address] [place] [address] Dr. Evens Bowden VIT D RANGES SEE BELOW Normal [facility] Comment on above: Result Comment: <20 ng/mL Vit D deficient 20 - <30 ng/mL Vit D insufficient 30 - 100 ng/mL Vit D sufficient >100 ng/mL Potential Toxicity Performed By: #### I MICHEL, VITAD #### [facility] [address] [place] [address] Dr. Evens Bowden VITAMIN B1 (THIAMINE)on 02-27 Vit. B1, Whole Blood 85.1 nmol/L Normal 66.5-200.0 [facility] Comment on above: Performed By: #### C BC #### [facility] [address] [place] [address] Dr. Evens Bowden CBC AUTO DIFFon 03-10-2021 BASO # 0.0 103/ul Normal 0.0-0.1 [facility] Comment on above: Performed By: #### Hugo VALENCIA #### [facility] [address] [place] [address] Dr. Evens Bowden Basophils/100 WBC (Bld) 0.8 % Normal 0.2-2.0 [facility] Comment on above: Performed By: #### Hugo VALENCIA #### [facility] [address] [place] [address] Dr. Evens Bowden EO # 0.2 103/ul Normal 0.0-0.7 [facility] Comment on above: Performed By: #### Hugo VALENCIA #### [facility] [address] [place] [address] Dr. Evens Bowden Eosinophils/100 WBC (Bld) 3.4 % Normal 0.9-7.0 [facility] Comment on above: Performed By: #### Hugo VALENCIA #### [facility] [address] [place] [address] Dr. Evens Bowden Erythrocyte distribution width (RBC) [Ratio] 13.2 % Normal 11.0-15.0 [facility] Comment on above: Performed By: #### Hugo VALENCIA #### [facility] [address] [place] [address] Dr. Evens Bowden Hematocrit (Bld) [Volume fraction] 34.2 % Critically low 36.0-48.0 [facility] Comment on above: Performed By: #### Hugo VALENCIA #### [facility] [address] [place] [address] Dr. Evens Bowden Hemoglobin (Bld) [Mass/Vol] 11.2 g/dL Critically low 12.0-16.0 [facility] Comment on above: Performed By: #### M MASOODB #### [facility] [address] [address] [address] Evens Bowden IG # 0.01 10e3/ul Normal 0.00-0.03 [facility] Comment on above: Performed By: #### M MASOODB #### [facility] [address] [address] [address] Evens Bowden IG % 0.2 % Normal 0.0-0.5 [facility] Comment on above: Performed By: #### M MASOODB #### [facility] [address] [place] [address] Dr. Evens Bowden LYMPH # 1.6 103/ul Normal 1.2-3.8 [facility] Comment on above: Performed By: #### M MASOODB #### [facility] [address] [address] [address] Evens Bowden Lymphocytes/100 WBC (Bld) 32.5 % Normal 20.5-60.0 [facility] Comment on above: Performed By: #### M MASOODB #### [facility] [address] [place] [address] Dr. Evens Bowden MANUAL DIFF REQ NO Normal [facility] Comment on above: Performed By: #### M MASOODB #### [facility] [address] [address] [address] Evens Bowden MCH (RBC) [Entitic mass] 30.6 pg Normal 26.7-34.0 [facility] Comment on above: Performed By: #### M MASOODB #### [facility] [address] [address] [address] Evens Bowden MCHC (RBC) [Mass/Vol] 32.7 g/dL Normal 29.9-35.2 [facility] Comment on above: Performed By: #### M MASOODB #### [facility] [address] [address] [address] Evens Bowden MCV (RBC) [Entitic vol] 93.4 fL Normal 81.0-99.0 [facility] Comment on above: Performed By: #### M MASOODB #### [facility] [address] [place] [address] Dr. Evens Bowden MONO # 0.5 103/ul Normal 0.3-0.8 [facility] Comment on above: Performed By: #### M MASOODB #### [facility] [address] [place] [address] Dr. Evens Bowden Monocytes/100 WBC (Bld) 10.7 % Normal 1.7-12.0 [facility] Comment on above: Performed By: #### M MASOODB #### [facility] [address] [place] [address] Dr. Evens Bowden NEUT # 2.6 103/ul Normal 1.4-6.5 [facility] Comment on above: Performed By: #### M MASOODB #### [facility] [address] [place] [address] Dr. Evens Bowden Neutrophils/100 WBC (Bld) 52.4 % Normal 43.0-75.0 [facility] Comment on above: Performed By: #### M MASOODB #### [facility] [address] [place] [address] Dr. Evens Bowden Platelet mean volume (Bld) [Entitic vol] 9.3 fL Critically low 9.5-13.5 [facility] Comment on above: Performed By: #### M KAB #### [facility] [address] [place] [address] Dr. Evens Bowden PLT 373 103/ul Normal 150-450 [facility] Comment on above: Performed By: #### M MASOODB #### [facility] [address] [place] [address] Dr. Evens Bowden RBC 3.66 106/ul Critically low 4.20-5.40 [facility] Comment on above: Performed By: #### M MASOODB #### [facility] [address] [place] [address] Dr. Evens Bowden WBC 5.0 103/ul Normal 4.0-11.0 [facility] Comment on above: Performed By: #### M USKAB #### [facility] [address] [place] [address] Dr. Evens Bowden FOLATEon 03-10-2021 FOLATE 7.50 ng/mL Normal >=2.76 [facility] Comment on above: Performed By: #### P REGJULIA Lang, UMICRO #### [facility] [address] [place] [address] Patria Mis IRON AND TIBCon 03-10-2021 % SATURATION 8.7 % Normal [facility] Comment on above: Performed By: #### P REGUSHOSHANAR, UMICRO #### [facility] [address] [place] [address] Patria Mis Iron [Mass/Vol] 29.0 ug/dL Critically low 37.0-170.0 [facility] Comment on above: Performed By: #### P REGJULIA Lang, UMICRO #### [facility] [address] [place] [address] Patria Mis TIBC DIRECT 332.0 ug/dL Normal 261.0-497.0 [facility] Comment on above: Performed By: #### P REGUSHOSHANAR, UMICRO #### [facility] [address] [place] [address] Patria Mis MAGNESIUMon 03-10-2021 Magnesium [Mass/Vol] 1.7 mg/dL Normal 1.6-2.3 [facility] Comment on above: Performed By: #### C BC #### [facility] [address] [place] [address] Dr. Evens Bowden PHOSPHORUSon 03-10-2021 Phosphate [Mass/Vol] 3.7 mg/dL Normal 2.5-4.5 [facility] Comment on above: Performed By: #### C BC #### [facility] [address] [place] [address] Dr. Evens Bowden PROF 14(COMP METB)on 021 Albumin [Mass/Vol] 3.6 g/dL Normal 3.5-5.0 [facility] Comment on above: Performed By: #### C BC #### [facility] [address] [place] [address] Dr. Evens Bowden Albumin/Globulin [Mass ratio] 1.1 {ratio} Normal [facility] Comment on above: Performed By: #### C BC #### [facility] [address] [place] [address] Dr. Evens Bowdne ALP [Catalytic activity/Vol] 91 U/L Normal 38-126 [facility] Comment on above: Performed By: #### C BC #### [facility] [address] [place] [address] Dr. Evens Bowden ALT [Catalytic activity/Vol] 31 U/L Normal 9-52 [facility] Comment on above: Performed By: #### C BC #### [facility] [address] [place] [address] Dr. Evens Bowden Anion gap [Moles/Vol] 12.5 mmol/L Normal [facility] Comment on above: Performed By: #### C BC #### [facility] [address] [place] [address] Dr. Evens Bowden AST [Catalytic activity/Vol] 22 U/L Normal 14-36 [facility] Comment on above: Performed By: #### C BC #### [facility] [address] [place] [address] Dr. Evens Bowden Bilirubin [Mass/Vol] 0.4 mg/dL Normal 0.2-1.3 [facility] Comment on above: Performed By: #### C BC #### [facility] [address] [place] [address] Dr. Evens Bowden Calcium [Mass/Vol] 8.2 mg/dL Critically low 8.4-10.2 [facility] Comment on above: Performed By: #### C BC #### [facility] [address] [place] [address] Dr. Evens Bowden Chloride [Moles/Vol] 106 mmol/L Normal 98-107 [facility] Comment on above: Performed By: #### C BC #### [facility] [address] [place] [address] Dr. Evens Bowden CO2 [Moles/Vol] 26.3 mmol/L Normal 22.0-30.[address] [facility] Comment on above: Performed By: #### C BC #### [facility] [address] [place] [address] Dr. Evens Bowden Creatinine [Mass/Vol] 0.57 mg/dL Normal 0.52-1.04 [facility] Comment on above: Performed By: #### C BC #### [facility] [address] [place] [address] Dr. Evens Bowden EGFR-AF ROMANIAN >60 Normal >=60 [facility] Comment on above: Performed By: #### C BC #### [facility] [address] [place] [address] Dr. Evens Bowden EGFR-NON AF ROMANIAN >60 Normal >=60 [facility] Comment on above: Performed By: #### C BC #### [facility] [address] [place] [address] Dr. Evens Bowden Globulin (S) [Mass/Vol] 3.4 g/dL Normal [facility] Comment on above: Performed By: #### C BC #### [facility] [address] [place] [address] Dr. Evens Bowden Glucose [Mass/Vol] 92 mg/dL Normal 74-106 [facility] Comment on above: Performed By: #### C BC #### [facility] [address] [place] [address] Dr. Evens Bowden Potassium [Moles/Vol] 3.8 mmol/L Normal 3.4-5.0 [facility] Comment on above: Performed By: #### C BC #### [facility] [address] [place] [address] Dr. Evens Bowden Protein [Mass/Vol] 7.0 g/dL Normal 6.1-8.2 [facility] Comment on above: Performed By: #### C BC #### [facility] [address] [place] [address] Dr. Evens Bowden Sodium [Moles/Vol] 141 mmol/L Normal 137-145 [facility] Comment on above: Performed By: #### C BC #### [facility] [address] [place] [address] Dr. Evens Bowden Urea nitrogen [Mass/Vol] 7.0 mg/dL Normal 7.0-17.0 [facility] Comment on above: Performed By: #### C BC #### [facility] [address] [place] [address] Dr. Evens Bowden Urea nitrogen/Creatinine [Mass ratio] 12.3 mg/mg Normal [facility] Comment on above: Performed By: #### C BC #### [facility] [address] [place] [address] Dr. Evens Bowden VITAMIN B12on 03-10-2021 Cobalamin (Vitamin B12) [Mass/Vol] 211.0 pg/mL Critically low 239.0-931.0 [facility] Comment on above: Performed By: #### P JULIA MURRAY UMWARRENRO #### [facility] [address] [place] [address] Patria Mis VITAMIN D 25 OHon 03-10-2021 VIT D 25-OH 15.8 ng/mL Normal [facility] Comment on above: Performed By: #### JULIA GARCIA UMICRO #### [facility] [address] [place] [address] Patria Mis VIT D RANGES SEE BELOW Normal [facility] Comment on above: Result Comment: <20 ng/mL Vit D deficient 20 - <30 ng/mL Vit D insufficient 30 - 100 ng/mL Vit D sufficient >100 ng/mL Potential Toxicity Performed By: #### P JULIA MURRAY UMICRO #### [facility] [address] [place] [address] Patria Mis VITAMIN D 25 OHon 02-10-2021 VIT D 25-OH 16.7 ng/mL Normal [facility] Comment on above: Performed By: #### Hugo CORREIAB #### [facility] [address] [place] [address] Dr. Evens Bowden VIT D RANGES SEE BELOW Normal [facility] Comment on above: Result Comment: <20 ng/mL Vit D deficient 20 - <30 ng/mL Vit D insufficient 30 - 100 ng/mL Vit D sufficient >100 ng/mL Potential Toxicity Performed By: #### M ERIK #### [facility] [address] [place] [address] Dr. Evens Bowden CBC AUTO DIFFon 01-02-2021 BASO # 0.1 103/ul Normal 0.0-0.1 [facility] Comment on above: Performed By: #### C BC #### [facility] [address] [place] [address] Dr. Evens Bowden Basophils/100 WBC (Bld) 0.5 % Normal 0.2-2.0 [facility] Comment on above: Performed By: #### C BC #### [facility] [address] [place] [address] Dr. Evens Bowden EO # 0.0 103/ul Normal 0.0-0.7 [facility] Comment on above: Performed By: #### C BC #### [facility] [address] [place] [address] Dr. Evens Bowden Eosinophils/100 WBC (Bld) 0.4 % Critically low 0.9-7.0 [facility] Comment on above: Performed By: #### C BC #### [facility] [address] [place] [address] Dr. Evens Bowden Erythrocyte distribution width (RBC) [Ratio] 13.2 % Normal 11.0-15.0 [facility] Comment on above: Performed By: #### C BC #### [facility] [address] [place] [address] Dr. Evens Bowden Hematocrit (Bld) [Volume fraction] 35.3 % Critically low 36.0-48.0 [facility] Comment on above: Performed By: #### C BC #### [facility] [address] [place] [address] Dr. Evens Bowden Hemoglobin (Bld) [Mass/Vol] 11.6 g/dL Critically low 12.0-16.0 [facility] Comment on above: Performed By: #### C BC #### [facility] [address] [place] [address] Dr. Evens Bowden IG # 0.02 10e3/ul Normal 0.00-0.03 [facility] Comment on above: Performed By: #### C BC #### [facility] [address] [place] [address] Dr. Evens Bowden IG % 0.2 % Normal 0.0-0.5 [facility] Comment on above: Performed By: #### C BC #### [facility] [address] [place] [address] Dr. Evens Bowden LYMPH # 1.1 103/ul Critically low 1.2-3.8 [facility] Comment on above: Performed By: #### C BC #### [facility] [address] [place] [address] Dr. Evens Bowden Lymphocytes/100 WBC (Bld) 11.0 % Critically low 20.5-60.0 [facility] Comment on above: Performed By: #### C BC #### [facility] [address] [place] [address] Dr. Evens Bowden MANUAL DIFF REQ NO Normal [facility] Comment on above: Performed By: #### C BC #### [facility] [address] [place] [address] Dr. Evens Bowden MCH (RBC) [Entitic mass] 30.5 pg Normal 26.7-34.0 [facility] Comment on above: Performed By: #### C BC #### [facility] [address] [place] [address] Dr. Evens Bowden MCHC (RBC) [Mass/Vol] 32.9 g/dL Normal 29.9-35.2 [facility] Comment on above: Performed By: #### C BC #### [facility] [address] [place] [address] Dr. Evens Bowden MCV (RBC) [Entitic vol] 92.9 fL Normal 81.0-99.0 [facility] Comment on above: Performed By: #### C BC #### [facility] [address] [place] [address] Dr. Evens Bowden MONO # 0.6 103/ul Normal 0.3-0.8 [facility] Comment on above: Performed By: #### C BC #### [facility] [address] [place] [address] Dr. Evens Bowden Monocytes/100 WBC (Bld) 6.2 % Normal 1.7-12.0 [facility] Comment on above: Performed By: #### C BC #### [facility] [address] [place] [address] Dr. Evens Bowden NEUT # 8.4 103/ul Critically high 1.4-6.5 [facility] Comment on above: Performed By: #### C BC #### [facility] [address] [place] [address] Dr. Evens Bowden Neutrophils/100 WBC (Bld) 81.7 % Critically high 43.0-75.0 [facility] Comment on above: Performed By: #### C BC #### [facility] [address] [place] [address] Dr. Evens Bowden Platelet mean volume (Bld) [Entitic vol] 10.0 fL Normal 9.5-13.5 [facility] Comment on above: Performed By: #### C BC #### [facility] [address] [place] [address] Dr. Evens Bowden PLT 317 103/ul Normal 150-450 [facility] Comment on above: Performed By: #### C BC #### [facility] [address] [place], [place] [id number] Dr. Evens Bowden RBC 3.80 106/ul Critically low 4.20-5.40 [facility] Comment on above: Performed By: #### C BC #### [facility] [address] [place] [address] Dr. Evens Bowden WBC 10.2 103/ul Normal 4.0-11.0 [facility] Comment on above: Performed By: #### C BC #### [facility] [address] [address] [address] ABD/PELVIS WO CONon 01-02 CT ABD/PELVIS WO CON EXAMINATION: CT ABD/PELVIS WO CON, 01/02/2021 9:42 AM EDT HISTORY: Right flank pain since 1:00 AM and fever since 2:00 AM. Difficulty and pain with urinating. COMPARISON: None. TECHNIQUE: CT scan of the abdomen and pelvis was performed without IV contrast. CT dose reduction technique was used, including Automated Exposure Control. FINDINGS: The lung bases are clear. Lower mediastinal structures are normal. The liver, spleen, adrenal glands, pancreas show normal unenhanced characteristics. Surgical changes of cholecystectomy. Surgical changes of gastric bypass. The left kidney is normal in size and appearance. The right kidney is mildly edematous and shows at least moderate hydronephrosis and hydroureter. However, no stones are clearly seen in the right ureter, although there are multiple phleboliths in the pelvis. The aorta has a normal course and caliber. The large and small bowel are normal caliber. Pelvic organs are normal. The urinary bladder is empty. There is no free air or free fluid and no inflammatory stranding is seen. No suspicious or destructive bone lesions are seen. IMPRESSION: Findings are most consistent with a recently passed stone on the right, although a lucent stone is also a possibility. Given the history of fever, recommend correlation with urinalysis to assess for possible associated pyelonephritis or cystitis. The rest of the exam is unremarkable within the limitations of a noncontrast study. Electronically authenticated by: AUDREY ROWE Date: 2021-01-02 10:13 Normal [facility] CULTURE URINEon 01-02-2021 CULTURE URINE Culture Observations : MODERATE GROWTH OF MIXED GENITAL SHEYLA. NO POTENTIAL PATHOGENS SEEN. Normal [facility] Comment on above: Performed By: #### M USKAB #### [facility] [address] [id number] Evens Bowden ER URINE PROFILEon Bilirubin Ql (U) SMALL Abnormal NEGATIVE [facility] Comment on above: Performed By: #### P REGU, ERUR, UMICRO #### [facility] [address] [address] Patria Mis Clarity (U) SL CLOUDY Abnormal CLEAR [facility] Comment on above: Performed By: #### P JULIA MURRAY UMICRO #### [facility] [address] [address] Patria Mis Color (U) YELLOW Normal YELLOW [facility] Comment on above: Performed By: #### JULIA GARCIA UMICRO #### [facility] [address] [address] Patria Mis ERUAHD A micrscopic examina tion will be performed if indicated. Normal [facility] Comment on above: Performed By: #### JULIA GARCIA UMICRO #### [facility] [address] [address] Patria Mis Glucose Ql (U) Negative Normal NEGATIVE [facility] Comment on above: Performed By: #### JULIA GARCIA UMICRO #### [facility] [address] [address] Patria Mis Hemoglobin Ql (U) TRACE-LYSED Abnormal NEGATIVE [facility] Comment on above: Performed By: #### JULIA GARCIA UMICRO #### [facility] [address] [address] Patria Mis Ketones Ql (U) 40 mg/dl Abnormal NEGATIVE [facility] Comment on above: Performed By: #### JULIA GARCIA UMICRO #### [facility] [address] [address] Patria Mis LEUKOCYTES Negative Normal NEGATIVE [facility] Comment on above: Performed By: #### P JULIA MURRAY UMICRO #### [facility] [address] [address] Patria Mis Nitrite Ql (U) Negative Normal NEGATIVE [facility] Comment on above: Performed By: #### JULIA GARCIA UMICRO #### [facility] [address] [address] Patria Mis pH (U) 6.0 [pH] Normal 5-9 [facility] Comment on above: Performed By: #### JULIA GARCIA UMICRO #### [facility] [address] [place] [address] Patria Abebe SPEC GRAVITY >=1.030 Abnormal 1.005-<=1.025 [facility] Comment on above: Performed By: #### JULIA GARCIA UMICRO #### [facility] [address] [place] [address] Patria Abebe UA PROTEIN Negative Normal NEGATIVE/ TRACE [facility] Comment on above: Performed By: #### JULIA GARCIA UMICRO #### [facility] [address] [place] [address] Patria Abebe UR MICRO IND INDICATED Normal [facility] Comment on above: Performed By: #### JULIA GARCIA UMICRO #### [facility] [address] [place] [address] Patria Abebe Urobilinogen Qn (U) 4 {Johnnie'U}/dL Abnormal 0.2 - 1.0 [facility] Comment on above: Performed By: #### JULIA GARCIA UMICRO #### [facility] [address] [place] [address] Patria Abebe LIPASEon 01-02-2021 Lipase [Catalytic activity/Vol] 64.0 U/L Normal 23.0-300.0 [facility] Comment on above: Performed By: #### C BC #### [facility] [address] [place] [address] Dr. Evens Bowden URon 01-02-2021 , QUAL Negative Normal NEGATIVE [facility] Comment on above: Performed By: #### JULIA GARCIA UMICRO #### [facility] [address] [place] [address] Patria Abebe PROF 14(COMP METB)on 021 Albumin [Mass/Vol] 4.2 g/dL Normal 3.5-5.0 [facility] Comment on above: Performed By: #### C BC #### [facility] [address] [place] [address] Dr. Evens Bowden Albumin/Globulin [Mass ratio] 1.1 {ratio} Normal [facility] Comment on above: Performed By: #### C BC #### [facility] [address] [place] [address] Dr. Evens Bowden ALP [Catalytic activity/Vol] 100 U/L Normal 38-126 [facility] Comment on above: Performed By: #### C BC #### [facility] [address] [place] [address] Dr. Evens Bowden ALT [Catalytic activity/Vol] 41 U/L Normal 9-52 [facility] Comment on above: Performed By: #### C BC #### [facility] [address] [place] [address] Dr. Evens Bowden Anion gap [Moles/Vol] 14.4 mmol/L Normal [facility] Comment on above: Performed By: #### C BC #### [facility] [address] [place] [address] Dr. Evens Bowden AST [Catalytic activity/Vol] 30 U/L Normal 14-36 [facility] Comment on above: Performed By: #### C BC #### [facility] [address] [place] [address] Dr. Evens Bowden Bilirubin [Mass/Vol] 0.5 mg/dL Normal 0.2-1.3 [facility] Comment on above: Performed By: #### C BC #### [facility] [address] [place] [address] Dr. Evens Bowden Calcium [Mass/Vol] 9.0 mg/dL Normal 8.4-10.2 [facility] Comment on above: Performed By: #### C BC #### [facility] [address] [place] [address] Dr. Evens Bowden Chloride [Moles/Vol] 106 mmol/L Normal 98-107 [facility] Comment on above: Performed By: #### C BC #### [facility] [address] [address] [address] Evens Bowden CO2 [Moles/Vol] 26.3 mmol/L Normal 22.0-30.[address] [facility] Comment on above: Performed By: #### C BC #### [facility] [address] [place] [address] Dr. Evens Bowden Creatinine [Mass/Vol] 0.74 mg/dL Normal 0.52-1.04 [facility] Comment on above: Performed By: #### C BC #### [facility] [address] [place] [address] Dr. Evens Bowden EGFR-AF ROMANIAN >60 Normal >=[address] [facility] Comment on above: Performed By: #### C BC #### [facility] [address] [place] [address] Dr. Evens Bowden EGFR-NON AF ROMANIAN >60 Normal >=60 [facility] Comment on above: Performed By: #### C BC #### [facility] [address] [place] [address] Dr. Evens Bowden Globulin (S) [Mass/Vol] 3.7 g/dL Normal [facility] Comment on above: Performed By: #### C BC #### [facility] [address] [place] [address] Dr. Evens Bowden Glucose [Mass/Vol] 112 mg/dL Critically high 74-106 T [facility] Comment on above: Performed By: #### C BC #### [facility] [address] [place] [address] Dr. Evens Bowden Potassium [Moles/Vol] 3.7 mmol/L Normal 3.4-5.0 [facility] Comment on above: Performed By: #### C BC #### [facility] [address] [place] [address] Dr. Evens Bowden Protein [Mass/Vol] 7.9 g/dL Normal 6.1-8.2 [facility] Comment on above: Performed By: #### C BC #### [facility] [address] [place] [address] Dr. Evens Bowden Sodium [Moles/Vol] 143 mmol/L Normal 137-145 [facility] Comment on above: Performed By: #### C BC #### [facility] [address] [place] [address] Dr. Evens Bowden Urea nitrogen [Mass/Vol] 10.0 mg/dL Normal 7.0-17.0 [facility] Comment on above: Performed By: #### C BC #### [facility] [address] [place] [address] Dr. Evens Bowden Urea nitrogen/Creatinine [Mass ratio] 13.5 mg/mg Normal [facility] Comment on above: Performed By: #### C BC #### [facility] [address] [place] [address] Dr. Evens Bowden URINE MICROSCOPIC ONLYon BACTERIA MODERATE Abnormal NONE SEEN [facility] Comment on above: Performed By: #### P REGU, ERUR, UMICRO #### [facility] [address] [place] [address] Patria Mis Bacteria identified Cx Nom (U) INDICATED Normal [facility] Comment on above: Performed By: #### P REGU, ERUR, UMICRO #### [facility] [address] [place] [address] Patria Mis CAST NONE SEEN Normal NONE SEEN [facility] Comment on above: Performed By: #### P REGU, ERUR, UMICRO #### [facility] [address] [place] [address] Patria Mis Crystals LM Nom (Urine sed) NONE SEEN Normal NONE SEEN [facility] Comment on above: Performed By: #### P REGU, ERUR, UMICRO #### [facility] [address] [place], [place] [id number] Patria Mis Epithelial cells LM Ql (Urine sed) FEW Abnormal NONE SEEN /RARE [facility] Comment on above: Performed By: #### P REGU, ERUR, UMICRO #### [facility] [address] [place] [address] Patria Mis MUCOUS TRACE Abnormal NONE SEEN [facility] Comment on above: Performed By: #### P REGU, ERUR, UMICRO #### [facility] [address] [place], [place] [address] Patria Abebe RBC 0-2 Normal 0-2 [facility] Comment on above: Performed By: #### P JULIA MURRAY UMICRO #### [facility] [address] [place], [place] [address] Patria Abebe WBC 0-2 Abnormal NONE SEEN [facility] Comment on above: Performed By: #### P JULIA MURRAY UMICRO #### [facility] [address] [place], [place] [address] Patria Abebe MRI KNEE RT WO CONon 021 MRI KNEE RT WO CON EXAMINATION: MRI KNE E RT WO CON HISTORY: Internal derangement of right knee COMPARISON: No relevant comparison available. TECHNIQUE: A complete multi-planar MRI was performed. FINDINGS: MEDIAL COMPARTMENT MEDIAL MENISCUS: No visible tear or significant degeneration. CARTILAGE: No visible defect. BONES: No marrow pathology, fracture, or significant arthropathy. MCL AND MEDIAL CAPSULE: Normal medial collateral ligament and medial capsule. LATERAL COMPARTMENT LATERAL MENISCUS: No visible tear or significant degeneration. CARTILAGE: No visible defect. BONES: No marrow pathology, fracture, or significant arthropathy. LCL/POSTEROLAT COMPLEX: Normal lateral collateral ligament, fascicles, lateral capsule and ligaments. ANTERIOR COMPARTMENT PATELLA: No marrow pathology, fracture, or significant arthropathy. CARTILAGE: No visible defect. TENDONS: Normal. EFFUSION: None. No synovitis or loose bodies. ACL: Normal appearing ligament. PCL: Normal appearing ligament. MENISCOFEMORAL: Normal meniscofemoral ligaments. OTHER: Collection of fluid-filled cysts anterior to the knee joint space, within Hoffa's fat pad, of uncertain etiology, 2.7 x 2.1 x 1.3 cm in overall size. Prominent subcutaneous edema lateral to the knee. IMPRESSION: 1. Prominent subcutaneous edema lateral to the mean; recent impaction injury? 2. Collection of fluid-filled cysts within Hoffa's fat pad uncertain clinical significance. 3. Normal appearance of the menisci, cruciate ligaments, collateral ligament. Electronically authenticated by: ALISON TONEY Date: 2020-12-08 16:25 Normal [facility] CBC and Differentialon 03-10 Abs Baso 0.03 k/uL Normal <0.11 [facility] Abs Wilson 0.81 k/uL Normal <0.87 [facility] Abs Neut 2.94 k/uL Normal 1.45-7.50 [facility] Absolute nRBC <0.01 Normal <0.01 [facility] Basophils/100 WBC Auto (Bld) 0.5 % Normal [facility] DTYPE Auto Diff Normal [facility] Eosinophils Auto #/vol (Bld) 0.27 10*3/uL Normal <0.46 [facility] Eosinophils/100 WBC Auto (Bld) 4.6 % Normal [facility] Erythrocyte distribution width Auto Ratio (RBC) 12.7 % Normal 11.5-15.0 [facility] Hematocrit Auto Volume Fraction (Bld) 36.0 % Normal 36.0-46.0 [facility] Hemoglobin mass conc (Bld) 12.1 g/dL Normal 11.5-15.5 [facility] Lymphocytes Auto #/vol (Bld) 1.88 10*3/uL Normal 1.00-4.00 [facility] Lymphocytes/100 WBC Auto (Bld) 31.7 % Normal [facility] MCH Auto Entitic mass (RBC) 30.6 pG Normal 26.0-34.0 [facility] MCHC Auto mass conc (RBC) 33.6 g/dL Normal 30.5-36.0 [facility] MCV Auto Entitic volume (RBC) 91.1 fL Normal 80.0-100.0 [facility] Monocytes/100 WBC Auto (Bld) 13.7 % Normal [facility] Neutrophils/100 WBC Auto (Bld) 49.5 % Normal [facility] NRBCs 0.0 /100 WBC Normal 0 [facility] Platelet mean volume Auto Entitic volume (Bld) 9.4 fL Normal 9.0-12.7 [facility] Platelets Auto #/vol (Bld) 257 10*3/uL Normal 150-400 [facility] RBC Auto #/vol (Bld) 3.95 10*6/uL Normal 3.90-5.20 [facility] WBC Auto #/vol (Bld) 5.93 10*3/uL Normal 3.70-11.00 [facility] Comp Metabolic Panelon 03-10 Albumin mass conc 3.6 g/dL Low 3.9-4.9 [facility] ALP enzyme act/vol 46 U/L Normal 34-123 [facility] ALT enzyme act/vol 18 U/L Normal 7-38 [facility] Anion gap 3 molar conc 10 mmol/L Normal 9-18 [facility] AST enzyme act/vol Unable to assay. Román hernandez significantly hemolyzed. Normal 13-35 [facility] Bilirubin mass conc 0.2 mg/dL Normal 0.2-1.3 [facility] Calcium mass conc 8.1 mg/dL Low 8.6-10.0 [facility] Chloride molar conc 103 mmol/L Normal 97-105 [facility] CO2 molar conc 27 mmol/L Normal 22-30 [facility] Creatinine mass conc 0.68 mg/dL Normal 0.58-0.96 [facility] eGFR- Amer. >60 Normal [facility] GFR/1.73 sq M predicted among non-blacks MDRD vol rate/area (S/P/Bld) mL/min/{1.73_m2} Normal [facility] Comment on above: Result Comment: eGFR (Estimated GFR) Units of measure: mL/min/1.73 meters squaredeGFR is derived from the reexpressed MDRD Study equation using the following parameters: serum creatinine, age, gender and race. The creatinine assay has been calibrated to be traceable to IDMS.An eGFR <60 mL/min/1.73m2 for >3 months is consistent with chronic kidney disease. Refer to KDOQI guidelines for clinical interpretation.In patients with unstable renal function, e.g. those with acute kidney injury, the eGFR may not accurately reflect actual GFR. Glucose mass conc 105 mg/dL High 74-99 [facility] Comment on above: Result Comment: The [place] [employer] Association (ADA) provides guidance for cutoff values for fasting glucose and random glucose. The ADA defines fasting as no caloric intake for at least 8 hours. Fasting plasma glucose results between 100 to 125 mg/dL indicate increased risk for diabetes (prediabetes).Fasting plasma glucose results greater than or equal to 126 mg/dL meet the criteria for diagnosis of diabetes. In the absence of unequivocal hyperglycemia, results should be confirmed by repeat testing. In a patient with classic symptoms of hyperglycemia or hyperglycemic crisis, random plasma glucose results greater than or equal to 200 mg/dL meet the criteria for diagnosis of diabetes.Reference: Standards of Medical Care in Diabetes 2016, [place] [employer]. Diabetes Care. 2016.39(Suppl 1). Potassium molar conc 4.1 mmol/L Normal 3.7-5.1 [facility] Protein mass conc 6.1 g/dL Low 6.3-8.0 [facility] Sodium molar conc 140 mmol/L Normal 136-144 [facility] Urea nitrogen mass conc 8 mg/dL Normal 7-21 [facility] ED NOTEon 03-10-2018 ED NOTE HNO ID: [id number] thor: Iliana (Rn) Arlen Padilla: (none)Author Type: Registered NurseType: ED NotesFiled: 03/10/2018 3:32 AMNote Text: Discharge instructions per provider, the patient verbalizesunderstanding. No additional questions or concerns at this time. Patient Vital signs stable, no acute distress noted. Patient ambulatory out ofED. [facility] ED NOTE HNO ID: [id number] Author: Gayla CastRn) DUSTIN Hurtado Service: (none) Author Type: Registered Nurse Type: ED Notes Filed: 03/10/2018 2:46 AM Note Text: Clean catch urine specimen obtained and sent. [facility] ED NOTE HNO ID: [id number] Author: Gayla CastRn) DUSTIN Hurtado Service: (none) Author Type: Registered Nurse Type: ED Notes Filed: 03/10/2018 12:36 AM Note Text: Patient transported to [facility] with Tech. [facility] ED NOTE HNO ID: [id number] thor: Felipe (Medic) James Alarcon: (none)Author Type: It Senior Analyst and TechnicianType: ED NotesFiled: 03/09/2018 11:50 PMNote Text:Presents to ED with complaint of chest tightness / pressure that beganlast night. Pt reports the pressure is constant and is now mid sternal.Did report pain in the left shoulder yesterday, but that has sinceresolved. Denies any cardiac HX. Does express worse pain on inspiration.Denies any long distance car rides / plane ETC. Denies N/V, SOB. No othercomplaints noted. [facility] ED PROV NOTEon 03-10-2018 Protein mass conc HNO ID: [id number] thor: Francis Eagle: (none)Author Type: PhysicianType: ED Provider NotesFiled: 03/10/2018 6:42 AMNote Text:ED Provider NotePatient Name: Joesph NievesRN: [id number] DATE: 03/09/18HistoryPatient presents with:Chest PainPhysical 27-year-old female presenting to the emergency departmentcomplaining of left-sided chest pain radiating to the left shoulder thathas been going on for 24 hours. Patient states that she was at work, notperforming significant exertional activity when the pain began. Reportsthe pain is pressure-like in nature and associated with shortness ofbreath, nausea, and dizziness. Denies any associated productive cough,hemoptysis, recent travel, unilateral leg swelling, recent surgery,history of DVT/PE, tobacco use, oral contraceptive use. Denies any recentfall, MVA, or any physical activity that could have led to thisdiscomfort. States that she has not had pain like this in the past.Patient took her mother's Flexeril last night without relief. Reportsincreased level of stress in personal life lately.No past medical history on file.No past surgical history on file.No family history on file.Social HistorySocial History Main Topics- Smoking status: Never Smoker- Smokeless tobacco: Not on file- Alcohol use No- Drug use: No- Sexual activity: YesALLERGIESAllergen Reactions- Percocet [Oxycodone* RashReview of SystemsConstitutional: Negative.HENT: Negative.Respiratory: Negative.Cardiovascular: Positive for chest pain.Gastrointestinal: Negative.Genitourinary: Negative.Musculoskeletal: Negative.Skin: Negative for rash.Neurological: Negative.Psychiatric/Beha vioral: Negative.Physical ExamBP 122/61 Pulse 78 Temp (Src) 98.1 (Oral) Resp 18 Ht 5' 4 (1.63m) Wt 260 lb (117.9kg) SpO2 98% LMP 03/02/2018 BMI 44.61 kg/(m2).Physical ExamConstitutional: She is oriented to person, place, and time. She appearswell-developed and well-nourished.HENT:Head: Atraumatic.Eyes: EOM are normal.Neck: Neck supple.Cardiovascular: Normal rate, regular rhythm, normal heart sounds andintact distal pulses. Exam reveals no friction rub.No murmur heard.Somewhat TTP over the midsternal region and L lateral chestPulmonary/Chest: Effort normal and breath sounds normal. She has nowheezes. She has no rales.Abdominal:TTP in RUQ and LUQ; abdomen soft, non-distended, normal bowel soundsMusculoskeletal: Normal range of motion.Neurological: She is alert and oriented to person, place, and time.Skin: Skin is warm.Psychiatric: She has a normal mood and affect.DECISION SUPPORT - ED (all recorded)Pulmonary Embolism Row Name 03/10/18 0211 03/10/18 0149 PERC Is pretest probability for PE > than 15% 0 ? Age > 50 0 0 HR >= 100 0 0 spO2 on room air < 95% 0 ? History of prior PE or DVT 0 0 Recent Trauma or Surgery 0 ? Hemoptysis? 0 ? Exogenous Estrogen? 0 ? Unilateral leg swelling 0 ? PERC Score = 0 ? If PERC Score > 0 - The PERC rule is not satisfied and cannot be used torule out Pulmonary Embolism for this patient No need for further workup,as < 2% chance of PE ? Wells' Clinical signs and symptoms of DVT ? ? PE is #1 Diagnosis, or equally likely ? ? Heart Rate is > 100 ? ? Immobilization at least 3 days or surgery in the previous 4 weeks ? ? Previous objectively diagnosed PE or DVT ? ? Hemoptysis ? ? Malignancy with treatment within 6 months or palliative ? ? Wells' Score = ? ? Row Name 03/10/18 0148 PERC Is pretest probability for PE > than 15% 0 Age > 50 0 HR >= 100 0 spO2 on room air < 95% 0 History of prior PE or DVT 0 Recent Trauma or Surgery 0 Hemoptysis? 0 Exogenous Estrogen? 0 Unilateral leg swelling 0 PERC Score = 0 If PERC Score > 0 - The PERC rule is not satisfied and cannot be used torule out Pulmonary Embolism for this patient No need for further workup,as < 2% chance of PE Wells' Clinical signs and symptoms of DVT ? PE is #1 Diagnosis, or equally likely ? Heart Rate is > 100 ? Immobilization at least 3 days or surgery in the previous 4 weeks ? Previous objectively diagnosed PE or DVT ? Hemoptysis ? Malignancy with treatment within 6 months or palliative ? Wells' Score = ?Diagnostic TestingED Labs Ordered and ReviewedCOMPREHENSIVE METABOLIC PANEL (AK,AV,EU,FV,HL,PATTY,MM,SP) - Abnormal;Notable for the following: Result Value Ref Range Protein, Total 6.1 (*) 6.3 - 8.0 g/dL Albumin 3.6 (*) 3.9 - 4.9 g/dL Calcium 8.1 (*) 8.6 - 10.0 mg/dL Glucose 105 (*) 74 - 99 mg/dL All other components within normal limitsLIPASE BLOOD (AK,AV,EU,FV,HL,PATTY,MM,SP) CBC + AUTO DIFF (AK,AV,EU,FV,HL,PATTY,MM,SP) HIGH SENSITIVITY TROPONIN T (AV,EU,FV,HL,PATTY,MM,SP)HIG H SENSITIVITY TROPONIN T (AV,EU,FV,HL,PATTY,MM,SP)HCG URINE - ED(POC)UA DIP,URINE (ED-POC)ProceduresED Course / Clinical ImpressionClinical Impressions as of Mar 10 0321Chest wall painMDM / Disposition / [id number] female comes into the emergency department complaining ofchest pain for the last 24 hours. No significant associated symptoms.Physical exam reveals regular rate and rhythm, no murmurs, distal pulsesintact, lungs clear to auscultation bilaterally, and minimal tenderness topalpation of the left chest and left upper quadrant of the abdomen.Differential diagnosis includes acute coronary syndrome, pulmonaryembolism, pneumonia, pleurisy, pancreatitis. Acute coronary syndromeunlikely with high sensitivity troponin's negative and EKG showing normalsinus rhythm at a rate of 88/m. Patient is PERC negative so pulmonaryembolism is unlikely. Chest x-ray is negative for pneumonia. Unlikely lina pancreatitis without any elevated liver enzymes or lipase. UA revealsmoderate hemoglobin consistent with current menses. Given exclusion ofabove mentioned emergent conditions, patient safe for d/c home. Agrees toreturn for any new/worsening symptoms.Additional Tests or Interventions: ECGEKG INTERPRETATION:Ordered and ReviewedRhythm: Normal sinus rhythmRate: 80Axis: Normal axisIntervals: Normal OH intervalQRS Complex: NormalST Segment: Normal ST-T segmentsQT Interval: NormalCompared with Prior:Interpretation performed by Shar AvilaThe patient was discharged.Counseled patient regarding lab results, radiology results and suspecteddiagnosis. As well as the need for follow-up. Discharged home withverbal and written instructions. They were instructed to return as neededfor persistent or worsening symptoms or any new concerns.Condition at disposition is improved.SIGNATURE: TODD AvilaKim Gerardo, TODD03/10/18 0319Attending NoteI have personally performed a face to face assessment of the patient andhave reviewed the JOSE note. My hammond findings include:agree with above assessment and plan. Patient is a 27-year-old female whois relatively well-appearing is reporting somewhat pleuritic chest pain.Her vitals are within normal limits and she is perk negative, because ofthis PE diagnosis is not pursued any further. Her EKG is not concerningand she has 2 normal high sensitivity troponins making ACS extremelyunlikely diagnosis. No evidence of pneumonia or pneumothorax.pericarditis . Not concerned at this time for her cardio effusion ordissection. Considered gastritis versus ulcer disease as a possiblediagnosis of the patient's acidosis not related to eating or drinking.Patient is feeling somewhat better on reevaluation. Spoke at length aboutthe possible diagnoses and what to look out for home. She feelscomfortable this time with a workup in being discharged and she willreturn with any worsening symptoms. I also informed her to follow-up withher primary care physician for continued management.Other additions or changes: As editedSignature: CLARKE Powellate: 03/10/2018Time: 6:40 AMAaron Pooja03/10/18 0642 Normal [facility] EKGon 03-10-2018 Protein mass conc NAME : MARK CISSE ID : [id number] : 1990 Gender : FemaleRace : CaucasianORD : Procedure Date : Mar 09 2018 23:52:59Edit Date : Mar 10 2018 05:16:28 Diagnosis:Normal sinus rhythmNormal ECGNo previous ECGs availableConfirmed by DO SILVA AARON ([id number]), video tape editor DEIRDRE ELIZONDO ([id number]) on 03/10/2018 5:16:22 AM Ventricular Rate : 80 BPMAtrial Rate : 80 BPMP-R Interval : 166 msQRS Duration : 92 msQ-T Interval : 394 msQTC Calculation(Bezet) : 454 msP [place] : 25 degreesR [place] : 19 degreesT [place] : 29 degrees Test Reason : Location : 302 : ED ED Overread By : DO SILVA AARONEdited By : Vitor ELIZONDOerred By : ,Acquired by : , Normal [facility] High Sens Troponin Ton 03-10 High Sensitivity RONAK <6 Normal <12 [facility] Comment on above: Result Comment: When assessing risk for acute coronary syndromes: In patients undergoing blood draw greater than or equal to 2 hours from symptom onset, with history of very low to moderate risk and non-ischemic ECG, an initial hs-Troponin T less than 12 ng/L AND a 1 hour delta hs-Troponin T less than 3 ng/L should be considered very low risk for 30 day MACE. High Sensitivity RONAK <6 Normal <12 [facility] Comment on above: Result Comment: When assessing risk for acute coronary syndromes: In patients undergoing blood draw greater than or equal to 2 hours from symptom onset, with history of very low to moderate risk and non-ischemic ECG, an initial hs-Troponin T less than 12 ng/L AND a 1 hour delta hs-Troponin T less than 3 ng/L should be considered very low risk for 30 day MACE. Lipaseon 03-10-2018 Lipase enzyme act/vol 26 U/L Normal 16-61 [facility] PROGRESSon 03-10-2018 Protein mass conc HNO ID: [id number] thor: Mehreen Alves RtService: (none)Author Type: (none)Type: Progress NotesFiled: 03/10/2018 12:51 AMNote Text: Radiology Service Progress NotePATIENT NAME: Joesph NievesRN: [id number] OF SERVICE: March 10, 2018TIME: 12:50 AMPATIENT IDENTITY VERIFICATION COMPLETED USING TWO (2) METHODS: Patientconfirmed name verbally and ID band matches..PATIENT GENDER DATA: Female. status: : NoBreastfeeding status: NO.PATIENT RELEVANT IMPLANT DATA REVIEWED: YesRADIOLOGY DEPARTMENT: General X-ray: Exam(s) Completed: Chest X-RayPERIPHERAL IV DATA: Not applicableSIGNED BY: Mehreen Alves [email or web address] 12:50 AM Normal [facility] XR CHEST 2V FRONTAL/LATon XR CHEST 2V FRONTAL/LAT * * *Final Report* * *DATE OF EXAM: Mar 10 2018 12:51AM VHX [id number] - XR CHEST 2V FRONTAL/LAT / REASON: Chest pain, acute, nonspecific, low prob CAD * * * * Physician Interpretation * * * * EXAMINATION: CHEST RADIOGRAPH (2 VIEW FRONTAL and LATERAL)CLINICAL HISTORY: ER adult presented with Chest pain, acute, nonspecific, low prob CAD.MQ: [id number]: No prior studies are available for comparison.RESULT:Lines, tubes, and devices: EKG electrodes are noted.Lungs and pleura: No focal consolidation, pneumothorax, pleural effusion or decompensated CHF.Cardiomediastinal silhouette: Normal cardiomediastinal silhouette.Other: No compression deformities in the visualized thoracic spine. No displaced acute fractures are detected.IMPRESSION:No acute radiographic abnormality.Roundsman ist: PSCB Transcribe Date/Time: Mar 10 2018 1:00ADictated by : VIK BURDICK MDThis examination was interpreted and the report reviewed and electronically signed by: VIK BURDICK MD on Mar 10 2018 1:01AM [id number] Normal [facility] Vital Signs Date Time Vital Sign Value Performing Clinician Ranjit mtz 10-19-2023 08:47-0400 Body height 162.6 cm [facility] [employer] Work Phone: [facility] 10-19-2023 08:47-0400 Body mass index (BMI) [Ratio] 34.33 kg/m2 Will [employer] Work Phone: [facility] 10-19-2023 08:47-0400 Body weight 90.72 kg Almyra [employer] Work Phone: [facility] 05-31-2023 15:25-0500 Body height 160 cm Jarod Weeks MD Work Phone: [facility] [employer] [facility] 05-31-2023 15:25-0500 Body mass index (BMI) [Ratio] 37.74 kg/m2 Jarod Weeks MD Work Phone: [facility] [employer] [facility] 05-31-2023 15:25-0500 Body weight 96.62 kg Jarod Weeks MD Work Phone: [facility] 05-31-2023 15:25-0500 Diastolic blood pressure 78 mm[Hg] Jarod Weeks MD Work Phone: [facility] 05-31-2023 15:25-0500 Respiratory rate 18 /min Jarod Weeks MD Work Phone: [facility] 05-31-2023 15:25-0500 Systolic blood pressure 124 mm[Hg] Jarod Weeks MD Work Phone: [facility] Encounters Encounter Date Encounter Type Care Provider Facility Start: 11-03-2023 End: 11-03-2023 ambulatory DEIRDRE CHAVEZ Not Available Start: 10-19-2023 End: 10-19-2023 ambulatory WILL Gold LEIA Facility:[facility] Start: 10-19-2023 End: 10-19-2023 ambulatory Will Gold Leia DO Work Phone: [facility] Comment on above: Hypermobility of lillie nt (Primary Dx) Start: 10-19-2023 End: 10-19-2023 Telemedicine consultation with patient Will Dupree DO Work Phone: [facility] Start: 09-28-2023 End: 09-28-2023 ambulatory [facility] Start: 09-26-2023 End: 09-26-2023 ambulatory [facility] Start: 09-23-2023 End: 09-23-2023 ambulatory [facility] Start: 09-21-2023 End: 09-21-2023 ambulatory [facility] Start: 09-19-2023 End: 09-19-2023 [facility] Start: 09-10-2023 End: 09-11-2023 ambulatory BIA MACIEL [facility] Start: 09-08-2023 End: 09-09-2023 [facility] Start: 05-31-2023 End: 05-31-2023 ambulatory JAROD WEEKS [facility] Start: 05-31-2023 End: 05-31-2023 Office outpatient visit 25 minutes Jarod Weeks MD Work Phone: [facility] Comment on above: Greater trochanteric bursitis of both hips (Primary Dx); Fibromyalgia; Vitamin B 12 deficiency; Anserine bursitis Start: 11-23-2021 End: 11-23-[address] BIA MACIEL Facility:[facility] Start: 11-03-2021 End: 11-04-[address] JERAMIE ATKINSON Facility:[facility] Start: 11-02-2021 End: 11-03-[address] JERAMIE ATKINSON Facility:[facility] Start: 10-01-2021 End: 10-02-[address] BIA MACIEL Facility:[facility] Start: 09-10-2021 End: 09-11-[address] BIA MACIEL Facility:[facility] Start: 03-10-2021 End: 03-11-[address] DOCTOR SMYTH Facility:[facility] Start: 02-10-2021 End: 02-11-[address] DOCTOR SMYTH Facility:[facility] Start: 01-02-2021 End: 01-02-[address] BIA MACIEL Facility:[facility] Start: 12-08-2020 End: 12-09-[address] BIA MACIEL Facility:[facility] Start: 03-10-2018 End: 03-10-2018 Emergency department patient visit [facility] Plan of Treatment Date Care Activity Detail Author Start: 11-24-2031 DTaP,Tdap and Td Vaccines (2 - Tdap) DTaP,Tdap and Td Vaccines (2 - Tdap) [facility] Start: 11-24-2031 Urine microalbumin profile DTaP,Tdap,Td Vaccine (2 - Tdap) [facility] Start: 05-31-2024 Adult BMI Screening Adult BMI Screening [facility] [employer] Start: 02-17-2024 Tobacco Screening Tobacco Screening [facility] [employer] [facility] Start: 01-29-2024 Influenza vaccination Influenza Vaccine (Season Ended) [facility] Start: 09-08-2023 End: 09-08-2023 Patient encounter procedure 09/08/2023 11:30 AM EDT Office Visit [facility] [address] [place] [address] Jarod Weeks MD [address] [address] [facility] Start: 05-30-2023 Behavioral Health Screening Behavioral Health Screening [facility] Start: 01-28-2023 COVID-19 Vaccine () COVID-19 Vaccine () [facility] [employer] [facility] Start: 01-28-2023 Influenza vaccination Influenza Vaccine [facility] Start: 2022 Screening for malignant neoplasm of cervix HPV Testing [facility] Start: 2013 Screening for malignant neoplasm of cervix [facility] Start: 2011 Hepatitis B Vaccine (1 of 3 - 19+ 3-dose series) Hepatitis B Vaccine (1 of 3 - 19+ 3-dose series) [facility] Start: 2010 Adult BMI Follow Up Plan Adult BMI Follow Up Plan [facility] Start: 2010 Hepatitis C screening Hepatitis C Screening [facility] Start: 2010 HIV screening HIV Screening [facility] Start: 2004 Depression Screening Depression Screening [facility] Payers Date Payer Category Payer Unknown [id number] 2022 Private Health Insurance [id number] 2022 Private Health Insurance [id number] 1992 Unknown [id number] 2.16.84 [id number] 1992 Unknown [id number] 2.16.84 [id number] 1992 Unknown [id number] 2.16.84 [id number] 1992 Unknown [id number] 2.16.84 0.1.483743.3.579.2.593 1992 Unknown [id number] 2.16.84 0.1.551010.3.579.2.593 1992 Unknown [id number] 2.16.84 0.1.337802.3.579.2.593 1992 Unknown [id number] 2.16.84 0.1.979876.3.579.2.593 1992 Unknown [id number] 2.16.84 0.1.817884.3.579.2.593 1992 Unknown [id number] 2.16.84 0.1.169403.3.579.2.593 1992 Unknown [id number] 2.16.84 0.1.995409.3.579.2.1286 1992 Unknown [id number] 2.16.8 40.1.708561.3.579.2.1285 1992 Unknown [id number] 2.16.8 40.1.057991.3.579.2.1285 1992 Unknown [id number] 2.16.8 40.1.451484.3.579.2.1285 1992 Unknown [id number] 2.16.8 40.1.784635.3.579.2.1285 1992 Unknown [id number] 2.16.8 40.1.909855.3.579.2.1285 1992 Unknown [id number] 2.16.8 40.1.815216.3.579.2.128 1992 Unknown [id number] 2.16.8 40.1.486793.3.579.2.1285 1992 Unknown [id number] 2.16.8 40.1.999114.3.579.2.1285 1992 Unknown [id number] 2.16.84 0.1.472196.3.579.2.9 1959 Unknown [id number] Social History Date Type Detail Facility Start: 10-11-2022 End: 10-19-2023 Tobacco smoking status NHIS Never smoked tobacco [facility] Start: 10-11-2022 End: 10-19-2023 Tobacco use and exposure Smokeless tobacco non-user [facility] Start: 02-16-2023 Alcohol intake Current drinke r of alcohol (finding) [facility] Start: 02-16-2023 End: 10-19-2023 Alcohol intake [facility] Start: 02-16-2023 End: 10-19-2023 Tobacco use panel [facility] How hard is it for y ou to pay for the very basics like food, housing, medical care, and heating Somewhat hard [facility] In the past 12 month s, has lack of transportation kept you from medical appointments or from getting medications? No [facility] Start: 1990 Sex Assigned At Female P [facility] Start: 05-12-2023 Gender identity Identifies as female gender (finding) [facility] Start: 05-12-2023 Sexual orientation Choose not to disclose [facility] Start: 10-19-2023 Alcohol intake Ex-drinker (finding) [facility] NEGATED: Highlighted rowStart: WENDY History of tobacco use Passive smoker [facility] Medical Equipment Procedure Code Equipment Code Equipment Origin al Text Equipment Identifier Dates Use to inject Vi t B 12 intramuscular [id number] Start: 05-31-2023 Use to inject Vi t B 12 intramuscular [id number] Start: 09-21-2022 End: 05-31-2023 Progress note 10-19-2023 Note Date & Type Note Facility 10-19-2023 Note HNO ID: [id number] Author: WILL DUPREE, DO Service: ? Author Type: Physician Type: Progress Notes Filed: 10/19/2023 11:02 Note Text: Telemedicine Visit - Distance Health Virtual Visit Note Patient seen on [employer] Video Visit platform. Location of patient: [place] PCP: No primary care provider on file. History of Present Illness Joesph Neff is a 33 year old female who presents for a referral request. - Says her PCP was concerned for EDS and needs an internal referral to a head trimmer to be evaluated - Suspect EDS for family member - Has experienced joint instability since childhood and has had hip dislocations - Has dysphagia and POTS symptoms - Was diagnosed with presumed Fibromyalgia, currently on Robaxin and Lyrica Social History Tobacco Use Smoking status: Never Smokeless tobacco: Never Substance Use Topics Alcohol use: Not Currently Drug use: Not Currently Current Outpatient Medications Medication Sig Amphetamine-Dextroamphetamine (ADDERALL) 30 mg tablet Take 1 tablet by mouth every afternoon. methocarbamol (ROBAXIN) 750 mg tablet Take 750 mg by mouth daily at bedtime. pregabalin (LYRICA) 75 mg capsule TAKE 1 CAPSULE BY MOUTH ONCE DAILY at EIGHT IN THE EVENING No current facility-administered medications for this visit. ALLERGIES Allergen Reactions Percocet [Oxycodone* Hives Video Exam (Examination performed via Video enabled technology) General appearance: Alert, oriented, pleasant, in NAD :Yes Ill appearing :No Lethargic appearing :No Respiratory distress :No Assessment/Plan: 1. Hypermobility of joint - ICD9: 718.80, ICD10: M24.9 - Suspected fhx of EDS - Struggling with recurrent hip dislocations, dysphagia, POTS symptoms - Her PCP would like her to be evaluated for EDS - CONSULT TO MEDICAL GENETICS - GENERAL - All questions answered I have communicated my name and active licensure. The patient's identity and physical location were verified at the time of this visit. Either the patient or their legal support representative has been informed of the risks and benefits of -- and alternatives to -- treatment through a remote evaluation and consents to proceed with the evaluation remotely. Scribe Attestation: By signing my name below, ILluvia, attest that this documentation has been prepared under the direction and in the presence of Will Dupree D.O. Electronically Signed: Lluvia Wheeler. October 19, 2023 10:27 AM. Physician Attestation: Will Valencia DO, personally performed the services described in this documentation. All medical record entries made by the scribe were at my direction and in my presence. I have reviewed the chart and discharge instructions (if applicable) and agree that the record reflects my personal performance and is accurate and complete. Electronically Signed: Will Dupree DO. [facility] Progress note 10-19-2023 Note Date & Type Note Facility 10-19-2023 Note HNO ID: [id number] Author: SHITAL ROY RN Service: ? Author Type: Registered Nurse Type: Progress Notes Filed: 10/19/2023 11:02 Note Text: Items addressed in this encounter: Other VV pre check, name and location verified, aware of tele health visit with A Leia Torres RN October 19, 2023 8:51 AM 8:51 AM [facility] History of Present illness Narrative 10-19-2023 Will Dupree, - 10/19/2023 10:27 AM Shital Valdovinos RN - 10/19/2023 8:51 AM EDT Note Date & Type Note Facility 10-19-2023 History of Presen t illness Narrative Telemedicine Visit - Distance Health Virtual Visit Note Patient seen on [employer] Video Visit platform. Location of patient: [place] PCP: No primary care provider on file. History of Present Illness Joesph Neff is a 33 year old female who presents for a referral request. - Says her PCP was concerned for EDS and needs an internal referral to a head trimmer to be evaluated - Suspect EDS for family member - Has experienced joint instability since childhood and has had hip dislocations - Has dysphagia and POTS symptoms - Was diagnosed with presumed Fibromyalgia, currently on Robaxin and Lyrica Social History Tobacco Use Smoking status: Never Smokeless tobacco: Never Substance Use Topics Alcohol use: Not Currently Drug use: Not Currently Current Outpatient Medications Medication Sig Amphetamine-Dextroamphetamine (ADDERALL) 30 mg tablet Take 1 tablet by mouth every afternoon. methocarbamol (ROBAXIN) 750 mg tablet Take 750 mg by mouth daily at bedtime. pregabalin (LYRICA) 75 mg capsule TAKE 1 CAPSULE BY MOUTH ONCE DAILY at EIGHT IN THE EVENING No current facility-administered medications for this visit. ALLERGIES Allergen Reactions Percocet [Oxycodone* Hives Video Exam (Examination performed via Video enabled technology) General appearance: Alert, oriented, pleasant, in NAD :Yes Ill appearing :No Lethargic appearing :No Respiratory distress :No Assessment/Plan: 1. Hypermobility of joint - ICD9: 718.80, ICD10: M24.9 - Suspected fhx of EDS - Struggling with recurrent hip dislocations, dysphagia, POTS symptoms - Her PCP would like her to be evaluated for EDS - CONSULT TO MEDICAL GENETICS - GENERAL - All questions answered I have communicated my name and active licensure. The patient's identity and physical location were verified at the time of this visit. Either the patient or their legal support representative has been informed of the risks and benefits of -- and alternatives to -- treatment through a remote evaluation and consents to proceed with the evaluation remotely. Scribe Attestation: By signing my name below, ILluvia, attest that this documentation has been prepared under the direction and in the presence of Will Dupree D.O. Electronically Signed: Lluvia Kemp Scribe. October 19, 2023 10:27 AM. Physician Attestation: Will Valencia DO, personally performed the services described in this documentation. All medical record entries made by the scribe were at my direction and in my presence. I have reviewed the chart and discharge instructions (if applicable) and agree that the record reflects my personal performance and is accurate and complete. Items addressed in this encounter: Other VV pre check, name and location verified, aware of tele health visit with A Leia Torres RN October 19, 2023 8:51 AM 8:51 AM documented in this encounter [facility] History of Present illness Narrative 05-31-2023 Jarod Weeks MD - 05/31/2023 3:30 PM Ashely Weeks MD - 05/31/2023 3:30 PM EST Note Date & Type Note Facility 05-31-2023 History of Present illness Narrative Images from the original note were not included. [address] [address] Date of Service: 05/31/2023 Subjective: Joesph Neff is a 32 y.o. female who presents today for evaluationPositive AMISHA . Patient is seen at the request of BIA MACIEL MD. This is follow-up visit with this patient who is 32-year-old female patient presenting today as an established patient for follow-up of fibromyalgia who was seen 1st time on08/23/2022 .Last time was seen 11/16/2022 Patient's history dates back to 02/2021 when with inability to exeresis 13 month after she had gastric bypass , in addition to Fatigued, was able to walk 75 feet , was seen by neurologist ,had MRI brain, no medications,weakneess still their, can walk Just in the house,can stand from the chair,cannot go upstairs,she started having joints pain, Hands,knnes ,ankles shoulders ,with swelling, skin rash over the cheecks,fingers,thighs.. Autoimmune /Systemic screening: ?? Positive Raynaud's, she hasr oral/ ocular sicca, she has recurrent oral ulcers, and nose,thinning of the hair,she does have butterfly rash,no digital ulcers,no ischemia, or ocular inflammation such as uveitis . No history of cytopenia, or pericarditis, pleuritis or DVT/PE. Patient has 2 children, no Systemic involvement such as anorexia, wt loss, she does have recurrent unexplained fever at night . Lab results done on 11/02/2021 Lyme antibodies negative, musculoskeletal antibodies neg, CK normal, rheumatoid factor negative, AMISHA positive, DNA negative, be positive, Hunter, SSA, SSB negative, CBC 08/2021 WBC 3.82, similar to December and February 2021 ,HGB 10.4, plat 428 The tests 08/23/2022 AMISHA IFA negative, complements normal, anti MEDICAL OFFICE REPRESENTATIVE 1.7 AI, vitamin-D 11.9 ng/mL normal, urinalysis normal, vitamin B12 208 pg/ mL, anti DNA by crithidia negative, CBC normal, CMP normal, ESR normal, CRP normal, TSH normal, Dorcas test negative, hemoglobin 8.3 gram/deciliter, MCV 71, serum iron 22 ug/dL ( 50 - 170), TIBC 501 50 - 170 ug/dL ( 250 - 425) , iron saturation 4%, serum ferritin 3 ng/ mL (11 - 307 ) Myasthenia gravis evaluation negative, anti DNA negative Current medications including Lyrica 25 mg and Robaxin in addition to vitamin B12 and naltrexone. At this point patient patient is presenting because of increased pain right knee as well as both hips. The following portions of the patient's history were reviewed and updated as appropriate: allergies, current medications, past family history, past medical history, past social history, past surgical history and problem list. Review of Systems: Review of Systems Constitutional: Positive for fatigue (02/06). HENT: Dry mouth Eyes: Dry Genitourinary: Renal stone Musculoskeletal: Positive for arthralgias. Psychiatric/Behavioral: Positive for sleep disturbance. Current Outpatient Medications Medication Sig Dispense Refill cetirizine (ZyrTEC) 10 mg tablet Take 1 tablet (10 mg total) by mouth in the morning. 90 tablet 3 dextroamphetamine-amphetamine (ADDERALL) 30 mg tablet Take 1 tablet (30 mg total) by mouth in the morning. EPINEPHrine (EPIPEN) 0.3 mg/0.3 mL auto-injector Inject 0.3 mL (0.3 mg total) into the appropriate muscle as needed (anaphylaxis). 2 each 1 ergocalciferol (VITAMIN D2) 1,250 mcg (50,000 unit) capsule Capsule weekly for 8 weeks then once monthly 12 capsule 0 fluticasone propionate (FLONASE) 50 mcg/actuation nasal spray Administer 2 sprays into each nostril in the morning. 16 mL 12 naltrexone HCl (NALTREXONE ORAL) Take 4 mg by mouth in the morning. cyanocobalamin (VITAMIN B-12) 1,000 mcg/mL injection One 1000 mcg every other day for 10 days,then once weekly for 4 weeks then once monthly 3 mL 3 methocarbamoL (ROBAXIN) 500 mg tablet Take 1 tablet (500 mg total) by mouth once daily at bedtime. 90 tablet 1 pregabalin (LYRICA) 50 mg capsule One capsule at 8 PM each night 90 capsule 1 syringe with needle, safety 3 mL 22 gauge x 1 1/2 syringe Use to inject Vit B 12 intramuscular 12 each 0 Current Facility-Administered Medications Medication Dose Route Frequency Provider Last Rate Last Admin lidocaine (XYLOCAINE) 10 mg/mL (1 %) injection 40 mg 4 mL intradermal Once Jarod Weeks MD triamcinolone acetonide (KENALOG-40) injection 40 mg 40 mg intra-articular Once Jarod Weeks MD triamcinolone acetonide (KENALOG-40) injection 40 mg 40 mg intra-articular Once Jarod Weeks MD Physical Exam: Physical Exam Vitals and nursing note reviewed. Constitutional: Appearance: She is well-developed. HENT: Head: Normocephalic and atraumatic. Right Ear: External ear normal. Nose: Nose normal. Eyes: Pupils: Pupils are equal, round, and reactive to light. Neck: Thyroid: No thyromegaly. Vascular: No JVD. Pulmonary: Effort: Pulmonary effort is normal. Musculoskeletal: General: No tenderness or deformity. Normal range of motion. Cervical back: Normal range of motion. Comments: Symmetrical tender trigger points No synovitis Tender bilateral trochanteric bursa and right anserine bursa Skin: General: Skin is warm and dry. Coloration: Skin is not pale. Findings: No erythema or rash. Neurological: Mental Status: She is alert and oriented to person, place, and time. Cranial Nerves: No cranial nerve deficit. Coordination: Coordination normal. Psychiatric: Behavior: Behavior normal. Thought Content: Thought content normal. HE-28 (If Applicable) There is currently no information documented on the homunculus. Go to the Rheumatology activity and complete the homunculus joint exam. HE-28 (CRP): -- HE-28 (ESR): -- Tender (HE-28): -- Swollen (HE-28): -- BP 124/78 Resp 18 Ht 160 cm (5' 2.99 ) Wt 96.6 kg (213 lb) BMI 37.74 kg/m : reviewed Labs and Imaging: reviewed and discussed with the patient during the visit.I Lab Results Component Value Date WBC 4.7 05/14/2023 HGB 13.2 05/14/2023 HCT 39.0 05/14/2023 MCV 91 05/14/2023 CRP <0.1 08/23/2022 C3 138 08/23/2022 C4 23 08/23/2022 AST 20 08/23/2022 Imaging: Assessment and Plan: Joesph Neff is a 32 y.o. female patient with: 1. Fibromyalgia - methocarbamoL (ROBAXIN) 500 mg tablet; Take 1 tablet (500 mg total) by mouth once daily at bedtime. Dispense: 90 tablet; Refill: 1 - pregabalin (LYRICA) 50 mg capsule; One capsule at 8 PM each night Dispense: 90 capsule; Refill: 1 2. Vitamin B 12 deficiency - cyanocobalamin (VITAMIN B-12) 1,000 mcg/mL injection; One 1000 mcg every other day for 10 days,then once weekly for 4 weeks then once monthly Dispense: 3 mL; Refill: 3 - syringe with needle, safety 3 mL 22 gauge x 1 1/2 syringe; Use to inject Vit B 12 intramuscular Dispense: 12 each; Refill: 0 3. Greater trochanteric bursitis of both hips - lidocaine (XYLOCAINE) 10 mg/mL (1 %) injection 40 mg - triamcinolone acetonide (KENALOG-40) injection 40 mg 4. Anserine bursitis - lidocaine (XYLOCAINE) 10 mg/mL (1 %) injection 40 mg - triamcinolone acetonide (KENALOG-40) injection 40 mg At this patient continued to have pain as well as fatigability. Will keep her on Robaxin and increase the dose of Lyrica. In addition keeping her on naltrexone For the trochanteric bursitis I offered her steroid injection and she agreed in that. Procedure. Under sent condition bilateral trochanteric bursa and anserine each injected with 40 mg triamcinolone and 4 mL lidocaine with some immediate relief of pain. Return to clinic 3 months This note was created with the assistance of a speech recognition program. While intending to generate a timely document that accurately reflects the content of the visit, no guarantee can be provided that every grammatical or spelling mistake has been or will be identified or corrected. Thank you for your understanding. [facility]. Jarod Weeks MD [address] [place] [address], [address] [place] [address] Office: [phone] Rheumatology Procedure Site: Bilateral trochanteric bursa and bilateral anserine bursa Date/Time: 43:46 PM Performed by: Jarod Weeks Authorized by: Jarod Weeks Written Consent obtained?: Yes Risks and benefits: Risks, benefits and alternatives were discussed Patient states understanding of procedures being performed: Yes Patient's understanding of procedure matches consent: Yes Procedure consent matches procedure scheduled: Yes Relevant documents present and verified: Yes Test results available and properly labeled: Yes Site marked: Yes Imaging studies available: No Patient identity confirmed: Verbally with patient Time out: Immediately prior to the procedure a time out was called Indications: Trochanteric bursitis and right anserine bursitis Needle size: 22 G Ultrasound guidance: No Approach: medial Lidocaine HCL 1% amount (ml): 4 each site Triamcinolone amount (mg): 40 each siite Patient tolerance: Patient tolerated the procedure well with no immediate complications Procedure was completed Vital signs stable during the procedure documented in this encounter [facility] Evaluation note Note Date & Type Note Facility Evaluation note Diagnosis Greater trochanteric bursitis of both hips- Primary Fibromyalgia Unspecified myalgia and myositis Vitamin B 12 deficiency Other B-complex deficiencies Anserine bursitis documented in this encounter [facility] Evaluation note Note Date & Type Note Facility Evaluation note Diagnosis Hypermobility of joint- Primary Other joint derangement, not elsewhere classified, unspecified site documented in this encounter [facility] Instructions Note Date & Type Note Facility Instructions Not on filedocumented in this en counter [facility]seek Summary Purpose Family History No Family History Records FoundNo Family History Records FoundNo Family History Records FoundNo Family History Records FoundNo Family History Records FoundNo Family History Records Found Advance Directives No Advanced Directives Records FoundNo Advanced Directives Records FoundNo Advanced Directives Records FoundNo Advanced Directives Records FoundNo Advanced Directives Records FoundNo Advanced Directives Records Found Reason for Referral Specialty Diagnoses / Procedures Referred By Shivam ferrell Referred To Contact Diagnoses Hypermobility of joint Procedures CONSULT TO MEDICAL GENETICS - GENERAL OFFICE/OUTPATIENT [facility] 60 MINUTES MEDICAL GENETICS COUNSELING EACH 30 MINUTES Will Dupree DO [address] [place] [address] [facility] [place] [facility] [place] [address] Referral ID Status Reason Start Date Expiration Date Visits Requested Visits Authorized [id number] Pending Review PCP Requested Referral Auto-Generate d Referral 10/19/2023 10/18/2024 1 1 Additional Source Comments INFORMATION SOURCE (unrecogn ized section and content) DATE CREATED AUTHOR 04/12/2018 [facility] DATE CREATED AUTHOR AUTHOR'S ORGANIZ ATION 11/26/2021 [facility] DATE CREATED AUTHOR AUTHOR'S ORGANIZ ATION 06/03/2023 [facility] DATE CREATED AUTHOR AUTHOR'S ORGANIZ ATION 09/30/2023 [facility] DATE CREATED AUTHOR AUTHOR'S ORGANIZ ATION 10/21/2023 [facility] DATE CREATED AUTHOR AUTHOR'S ORGANIZ ATION 11/04/2023 [facility] Special[facility] [employer] Care Teams (unrecognized sec tion and content) Restaurant Rec[employer] Relationship Specialty Start Date End Date Bia Maciel MD [address] [phone] PCP - General Family Medicine 09/21/22 Source Comments (unrecognize d section and content) In the event this informatio n is protected by the Federal Confidentiality of Alcohol and Drug Abuse Patient Records regulations: The Federal rules restrict any use of the information to criminally investigate or prosecute any alcohol or drug abuse patient.[facility] Reason for Visit (unrecogniz ed section and content) Reason Comments Referral Request Legal Aide FOR RECORDS PERTAINING TO PATIENTS WHO ARE OR HAVE BEEN ENROLLED IN A CHEMICAL DEPENDENCY/SUBSTANCEABUSE PROGRAM, SOME INFORMATION MAY BE OMITTED. This clinical summary was aggregated from multiple sources. Caution should be exercised in using it in the provision of clinical care. This summary normalizes information from multiple sources, and as a consequence, information in this document may materially change the coding, format and clinical context of patient data. In addition, data may be omitted in some cases. CLINICAL DECISIONS SHOULD BE BASED ON THE PRIMARY CLINICAL RECORDS. [employer] [facility]. provides no warranty or guarantee of the accuracy or completeness of information in this document.
== END 2023-11-18 10:06 | disposition home or self-care (01) ==
LOC: EC 10:05
PROVIDERS: PCP Family Medicine; Visit Provider Orthopaedic Surgery Orthopaedic Surgery of the Spine
DX: M54.50 Low back pain, unspecified (principal)
CPT/HCPCS: 72110

== ENCOUNTER 2023-11-30 13:05 | Outpatient (OUT) | payer OTHER, SELFPAY ==
--- OUTSIDE RECORDS SUMMARY | 2023-11-30 13:25 | XMS_ITS ---
Patient Summarization (C-CDA 2.1 CCD) Created on: November 30, 2023 JOESPH NEFF : 1990 Sex: Female Author Organization Sample organization Care Team Providers Care Innovation Manager Name Role Phone FRANCIS SILVA Unavailable Unavailable MISC, DR GR Admitting Unavailable MISC, DR GR Attending Unavailable HOY, DR AMEZQUITA Primary Care Unavailable MISC, DR GR Consulting Unavailable MISC, DR GR Admitting Unavailable MISC, DR GR Attending Unavailable HOY, DR AMEZQUITA Primary Care Unavailable MISC, DR GR Consulting Unavailable HOY, DR AMEZQUITA Admitting Unavailable HOY, DR AMEZQUITA Attending Unavailable HOY, DR AMEZQUITA Primary Care Unavailable HOY, DR AMEZQUITA Consulting Unavailable GABRIELLEY, DR AMEZQUITA Primary Care Unavailable MICHELLE WHITNEY Admitting Unavailable DEVONTE, MICHELLE Attending Unavailable JAE, AUDREY Consulting Unavailable MICHELLE WHITNEY Consulting Unavailable OSEI, DR AMEZQUITA Primary Care Unavailable PAY, DR ODOM Admitting Unavailable PAY, DR ODOM Attending Unavailable GRECHNY, TODD SIMONS Consulting Unavailable GABRIELLEY, DR AMEZQUITA Admitting Unavailable HOY, DR AMEZQUITA Attending Unavailable HOY, DR AMEZQUITA Primary Care Unavailable HOY, DR AMEZQUITA Consulting Unavailable WEST, DR SANDRA Ahmadi Consulting Unavailable CHINA, DR BOBO Admitting Unavailable CHINA, DR BOBO Attending Unavailable HOY, DR AMEZQUITA Primary Care Unavailable CHINA, DR BOBO Consulting Unavailable CHINA, DR BOBO Admitting Unavailable CHINA, DR BOBO Attending Unavailable GABRIELLEY, DR AMEZQUITA Primary Care Unavailable CHINA, DR BOBO Consulting Unavailable OSEI, DR AMEZQUITA Admitting Unavailable OSEI, DR AMEZQUITA Attending Unavailable OSEI, DR AMEZQUITA Primary Care Unavailable OSEI, DR AMEZQUITA Consulting Unavailable ZIEBKELLY, DR ALISON Rico Consulting Unavailable Bia Maciel MD Primary Care Provider [phone] JAROD WEEKS Attending Unavailable BIA MACIEL Referring Unavailable BIA MACIEL Primary Care Unavailable JAROD WEEKS Attending Unavailable HOY, BIA M Referring Unavailable HOY, BIA M Primary Care Unavailable MADDIE WEEKSADER N Referring Unavailable HOY, BIA M Primary Care [...] Primary Care Unavailable Unavailable Primary Care Provider WILL Sanchez Attending Unavailable DEIRDRE CHAVEZ Attending Unavailable GABRIELLEY, BIA M Referring Unavailable Allergies Allergy Classification Reported Allergen(s) Allergy Type Date of Onset Reaction(s) Facility (3 sources) acetaminophen / oxyCODONE; Translations: [OXYCODONE-ACETAM INOPHEN] Drug Allergy 8 [facility] Repository (1 source) Acetaminophen / oxyCODONE Drug Allergy 5 [facility] Repository (3 sources) oxyCODONE; Translations: [OXYCODONE HCL] Drug Allergy 2 Itching, GI Disturbance [facility] Encounters Encounter Date Encounter Type Care Provider Facility Start: 11-03-2023 End: 11-03-2023 ambulatory DEIRDRE CHAEVZ Not Available Start: 10-19-2023 End: 10-19-2023 ambulatory WILL DUPREE Facility:[facility] Start: 10-19-2023 End: 10-19-2023 ambulatory Will Dupree DO Work Phone: [facility] Comment on above: Hypermobility of lillie nt (Primary Dx) Start: 10-19-2023 End: 10-19-2023 Telemedicine consultation with patient Will Dupree DO Work Phone: [facility] Start: 09-28-2023 End: 09-28-2023 ambulatory LAURENT NOLAN [facility] Start: 09-26-2023 End: 09-26-2023 ambulatory [facility] Start: 09-23-2023 End: 09-23-2023 ambulatory [facility] Start: 09-21-2023 End: 09-21-2023 ambulatory [facility] Start: 09-19-2023 End: 09-19-2023 ambulatory [facility] Start: 09-10-2023 End: 09-11-2023 ambulatory BIA MACIEL [facility] Start: 09-08-2023 End: 09-09-2023 ambulatory [facility] Start: 05-31-2023 End: 05-31-2023 ambulatory [facility] Start: 05-31-2023 End: 05-31-2023 Office outpatient visit 25 minutes Jarod Weeks MD Work Phone: [facility] Comment on above: Greater [...] 03-10-2018 End: 03-10-2018 Emergency department patient visit [facility] Medical Equipment Procedure Code Equipment Code Equipment Origin al Text Equipment Identifier Dates Use to inject Vi t B 12 intramuscular [id number] Start: 05-31-2023 Use to inject Vi t B 12 intramuscular [id number] Start: 09-21-2022 End: 05-31-2023 Medications Current Medications Medication Drug Class(es) Dates [...] the morning. 90 tablet 3 11/02/2022 Active [id number] 0.3 ml EPINEPHrine 1 mg/ml auto-injector (1 [...] 05-31-2023 triamcinolone acetonide (KENALOG-40) injection 40 mg Payers Date Payer Category Payer Unknown [id number] 2022 Private Health Insurance [id number] 2022 Private Health Insurance [id number] 1990 Unknown [id number] 2.16.84 0.1.119066.3.579.2.593 1990 Unknown [id number] 2.16.84 0.1.053838.3.579.2.593 1990 Unknown [id number] 2.16.84 0.1.470553.3.579.2.593 1990 Unknown [id number] 2.16.84 0.1.578258.3.579.2.593 1990 Unknown [id number] 2.16.84 0.1.169087.3.579.2.593 1992 Unknown [id number] 2.16.84 0.1.011953.3.579.2.593 1990 Unknown [id number] 2.16.84 0.1.131038.3.579.2.593 1992 Unknown [id number] 2.16.84 0.1.808957.3.579.2.593 1992 Unknown [id number] 2.16.84 0.1.447397.3.579.2.593 1992 Unknown [id number] 2.16.84 0.1.421764.3.579.2.1286 1992 Unknown [id number] 2.16.8 40.1.166262.3.579.2.1286 1992 Unknown [id number] 2.16.8 40.1.339553.3.579.2.6 1990 Unknown [id number] 2.16.8 40.1.480777.3.579.2.1285 1990 Unknown [id number] 2.16.8 40.1.941126.3.579.2.6 1990 Unknown [id number] 2.16.8 40.1.458430.3.579.2.128 1990 Unknown [id number] 2.16.8 40.1.125759.3.579.2.6 1990 Unknown [id number] 2.16.8 40.1.034609.3.579.2.1286 1990 Unknown [id number] 2.16.8 40.1.141993.3.579.2.1286 1990 Unknown [id number] 2.16.84 0.1.692154.3.579.2.1259 1959 Unknown [id number] Plan of Treatment Date Care Activity Detail Author Start: 11-24-2031 DTaP,Tdap and Td Vaccines (2 - Tdap) DTaP,Tdap and Td Vaccines (2 - Tdap) [facility] Start: 11-24-2031 Urine microalbumin profile DTaP,Tdap,Td Vaccine (2 - Tdap) [facility] Start: 05-31-2024 Adult BMI Screening Adult BMI Screening [facility] Start: 02-17-2024 Tobacco Screening Tobacco Screening [facility] Start: 01-29-2024 Influenza vaccination Influenza Vaccine (Season Ended) [facility] Start: 09-08-2023 End: 09-08-2023 Patient encounter procedure 09/08/2023 11:30 AM EDT Office Visit [facility] [address] [place] [address] Jarod Weeks MD [address] [address] [facility] Start: 05-30-2023 Behavioral Health Screening Behavioral Health Screening [facility] Start: 01-28-2023 COVID-19 Vaccine ( season) COVID-19 Vaccine () [facility] Start: 01-28-2023 Influenza vaccination [facility] Start: 2022 Screening for malignant neoplasm of cervix HPV Testing [facility] Start: 2013 Screening for malignant neoplasm of cervix [facility] Start: 2011 Hepatitis B Vaccine (1 of - + 3-dose series) Hepatitis B Vaccine (1 of 3 - + 3-dose series) [facility] Start: 2010 Adult BMI Follow Up Plan Adult BMI Follow Up Plan [facility] Start: 2010 Hepatitis C screening Hepatitis C Screening [facility] Start: 2010 HIV screening HIV Screening [facility] Start: 2004 Depression Screening [facility] Screening [facility] Problems Active Problems Problem Classification Problem Date [...] 11-23-2021 Episodic Other aftercare (1 source) 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; Translations: [OTH [facility] CURRENT DRUG THERAPY] Onset: 11-25-2021 Episodic Other [...] disease (2 sources) Encounter for immunization; Translations: [PARAFFIN MACHINE OPERATOR antibody positive] Onset: 11-25-2021 09-21-2022 Episodic Nausea [...] Hou MD on 09/13/2023 9:36 PM Normal [facility] CBC AND AUTO DIFFon 09-10-19 24 ABSOLUTE BASOPHIL 0.1 X10E9/L Normal 0.0-0.2 [facility] Comment on above: Performed By: #### 2 276-4, 2132-01, FEPR, 2284-8, CBCA #### [facility] ([id number]) [address], [address] [place] [address] ABSOLUTE NEUTROPHIL 3.8 X10E9/L Normal 1.5-6.6 [facility] Comment on above: Performed By: #### 2 276-4, 2132-01, FEPR, 2283-12, CBCA #### [facility] ([id number]) [address] [address] [place] [address] Basophils/100 WBC (Bld) 0.9 % Normal [facility] Comment on above: Performed By: #### 2 276-4, 2132-01, FEPR, 2283-12, CBCA #### [facility] ([id number]) [address] [address] Eosinophils (Bld) [#/Vol] 0.1 10*3/uL Normal 0.0-0.4 [facility] Comment on above: Performed By: #### 2 276-4, 2132-01, FEPR, 2283-12, CBCA #### [facility] ([id number]) [address] [address] Eosinophils/100 WBC (Bld) 1.5 % Normal [facility] Comment on above: Performed By: #### 2 276-4, 2132-01, FEPR, 2283-12, CBCA #### [facility] ([id number]) [address] [address] Erythrocyte distribution width (RBC) [Ratio] 13.0 % Normal 11.5-15.0 [facility] Comment on above: Performed By: #### 2 276-4, 2132-01, FEPR, 2283-12, CBCA #### [facility] ([id number]) [address] [address] Hematocrit (Bld) [Volume fraction] 38.3 % Normal 35-47 [facility] Comment on above: Performed By: #### 2 276-4, 2132-01, FEPR, 2283-12, CBCA #### [facility] ([id number]) [address] [address] Hemoglobin (Bld) [Mass/Vol] 13.0 g/dL Normal 11.7-15.5 [facility] Comment on above: Performed By: #### 2 276-4, 2132-01, FEPR, 2283-12, CBCA #### [facility] ([id number]) [address], [address] [place] [address] Lymphocytes (Bld) [#/Vol] 1.5 10*3/uL Normal 1.0-3.5 [facility] Comment on above: Performed By: #### 2 276-4, 2132-01, FEPR, 2283-12, CBCA #### [facility] ([id number]) [address] [facility] [address] [place] [address] Lymphocytes/100 WBC (Bld) 25.0 % Normal [facility] Comment on above: Performed By: #### 2 276-4, 2132-01, FEPR, 2283-12, CBCA #### [facility] ([id number]) [address], [address] [place] [address] MCH (RBC) [Entitic mass] 31.4 pg Normal 27-34 [facility] Comment on above: Performed By: #### 2 276-4, 2132-01, FEPR, 2283-12, CBCA #### [facility] ([id number]) [address], [address] [place] [address] MCHC (RBC) [Mass/Vol] 34.1 g/dL Normal 32-36 [facility] Comment on above: Performed By: #### 2 276-4, 2132-01, FEPR, 2283-12, CBCA #### [facility] ([id number]) [address], [address] [place] [address] MCV (RBC) [Entitic vol] 92 fL Normal 80-100 [facility] Comment on above: Performed By: #### 2 276-4, 2132-01, FEPR, 2283-12, CBCA #### [facility] ([id number]) [address], [address] [place] [address] Monocytes (Bld) [#/Vol] 0.5 10*3/uL Normal 0-0.9 [facility] Comment on above: Performed By: #### 2 276-4, 2132-01, FEPR, 2283-12, CBCA #### [facility] ([id number]) [address], [address] [place] [address] Monocytes/100 WBC (Bld) 8.6 % Normal [facility] Comment on above: Performed By: #### 2 276-4, 2132-01, FEPR, 2283-12, CBCA #### [facility] ([id number]) [address], [address] [place] [address] Neutrophils/100 WBC (Bld) 64.0 % Normal [facility] Comment on above: Performed By: #### 2 276-4, 2132-01, FEPR, 2283-12, CBCA #### [facility] ([id number]) [address], [address] [place] [address] Platelet mean volume (Bld) [Entitic vol] 7.6 fL Normal 7-12 [facility] Comment on above: Performed By: #### 2 276-4, 2132-01, FEPR, 2283-12, CBCA #### [facility] ([id number]) [address] [place] [address] Platelets (Bld) [#/Vol] 408 10*3/uL Normal 150-450 [facility] Comment on above: Performed By: #### 2 276-4, 9, FEPR, 2283-12, CBCA #### [facility] ([id number]) [address], [address] [place] [address] RBC COUNT 4.16 X10E12/L Normal 3.80-5.20 [facility] Comment on above: Performed By: #### 2 276-4, 9, FEPR, 2283-8, CBCA #### [facility] ([id number]) [address], [address] [place] [address] WBC (Bld) [#/Vol] 6.0 10*3/uL Normal 4.0-11.0 [facility] Comment on above: Performed By: #### 2 276-4, 9, FEPR, 2283-8, CBCA #### [facility] ([id number]) [address], [address] [place] [address] FERRITINon 09-10-2023 Ferritin [Mass/Vol] 10 ng/mL Low 11-307 [facility] Comment on above: Performed By: #### 2 276-4, 9, FEPR, 2283-12, CBCA #### [facility] ([id number]) [address] [place] [address] Folate [Mass/Vol]on 09-10-19 24 FOLIC ACID 10.9 ng/mL Normal >5.8 [facility] Comment on above: Result Comment: NEW REFERENCE RANGE Performed By: #### 2 276-4, 9, FEPR, 2283-8, CBCA #### [facility] ([id number]) [address], [address] [place] [address] IRON PROFILEon 09-10-2023 Iron [Mass/Vol] 92 ug/dL Normal 50-170 [facility] Comment on above: Performed By: #### 2 276-4, 2132-01, FEPR, 8, CBCA #### [facility] ([id number]) [address], [address] [place] [address] IRON BINDING 421 ug/dL Normal 250-425 [facility] Comment on above: Performed By: #### 2 276-4, 2-9, FEPR, 2284-8, CBCA #### [facility] ([id number]) [address], [address] [place] [address] IRON SATURATION 22 % SATURATION Normal 15-50 [facility] Comment on above: Performed By: #### 2 276-4, 2-9, FEPR, 2284-8, CBCA #### [facility] ([id number]) [address] [place] [address] VITAMIN B12on 09-10-2023 Cobalamin (Vitamin B12) [Mass/Vol] 195 pg/mL Normal 180-914 [facility] Comment on above: Performed By: #### 2 276-4, 2131-9, FEPR, 2284-8, CBCA #### [facility] ([id number]) [address] [place] [address] [employer] ANITBODY TESTon 022 [employer] Antibodies <1.0 Normal [facility] Comment on above: Result Comment: Refe rence Range: Negative: <1.0 Positive: 1.0 or higher [...] 2014;52:90-100. 2. Luzmaria DUVAL et al. PNAS 2013;110(89);46888-81513. 3. Joo Escudero et al. Neurology 2006;67:505-507. This test was developed and its performance characteristics determined by [employer]. It has not been cleared or approved by the Food and Drug Administration. Performed By: #### M ERIK #### [facility] [address] [place] [address] Dr. Evens Bowden ACETYLCHOLINE RECEPTOR AB VT OFILEon 11-10-2021 AChR Binding Abs, Serum <0.03 Normal 0.00-0.24 [facility] Comment on above: Result Comment: Nega tive: 0.00 - 0.24 Borderline: 0.25 - 0.40 Positive: >0.40 Performed By: #### JULIA GARCIA UMICRO #### [facility] [address] [place] [address] Patria Abebe AChR Blocking Abs, Serum 10 % Normal 0-25 [facility] Comment on above: Result Comment: Nega tive: 0 - 25 Borderline: 26 - 30 Positive: >30 Performed By: #### JULIA GARCIA UMICRO #### [facility] [address] [place], [place] [address] Patria Mis AChR Modulating Ab CANRGT Normal [facility] Comment on above: Result Comment: Test not performed. Unable to perform test due to current unavailability of reagents or discontinuation of test. Negative: <21 Equivocal: 21 - 25 Positive: >25 Effective March 25, 2021, test [id number] AChR Modulating Abs, Serum was made non-orderable due to an ongoing reagent issue. Specimens are stored frozen and can be referenced to [facility] to provide an AChR Modulating Ab result. Please contact [employer] Customer Service to add on [phone] Acetylcholine Receptor Modulating Antibody, if warranted. Performed By: #### JULIA GARCIA UMICRO #### [facility] [address] [place], [place] [address] Patria Mis LYME DISEASE AB EIA W REFLEX on 11-04-2021 Lyme Total Antibody,EIA Negative Normal Negative [facility] Comment on above: Result Comment: Lyme Antibody Negative No laboratory evidence of infection with B. burgdorferi (Lyme disease). Negative results may occur in patients recently infected (greater than or equal to 14 days) with B. burgdorferi. If recent infection is suspected, repeat testing on a new sample collected in 7 to 14 days is recommended. Performed By: #### JULIA GARCIA UMICRO #### [facility] [address] [place] [address] Patria Abebe AMISHA EIA W/REFLEX 5 BIOMARKER Son 11-03-2021 AMISHA Direct Positive Abnormal Negative [facility] Comment on above: Performed By: #### JULIA GARCIA UMICRO #### [facility] [address] [place] [address] Patria Abebe Anti-DNA (DS) Ab Qn <1 Normal 0-9 [facility] Comment on above: Result Comment: Nega tive <5 Equivocal 5 - 9 Positive >9 Performed By: #### JULIA GARCIA UMICRO #### [facility] [address] [place] [address] Patria Abebe PARAFFIN MACHINE OPERATOR Antibodies 2.4 AI Critically high 0.0-0.9 [facility] Comment on above: Performed By: #### JULIA GARCIA UMICRO #### [facility] [address] [place] [address] Patria Abebe SEE BELOW: Comment Normal [facility] Comment on above: Result Comment: Auto antibody [...] Sm (anti-Hunter) SLE 15 - 30% --------- PARAFFIN MACHINE OPERATOR Mixed Connective Tissue Disease 95% (U1 nRNP, SLE 30 - 50% anti-ribonucleoprotein) Polymyositis and/or Dermatomyositis 20% --------- Scl-70 (antiDNA Scleroderma (diffuse) 20 - 35% topoisomerase) Crest 13% --------- Kristie-1 Polymyositis and/or Dermatomyositis 20 - 40% --------- Centromere B Scleroderma - Crest variant 80% Performed By: #### JULIA GARCIA UMICRO #### [facility] [address] [place] [address] Patria Mis Sjogren's Anti-SS-A <0.2 Normal 0.0-0.9 [facility] Comment on above: Performed By: #### JULIA GARCIA UMICRO #### [facility] [address] [place] [address] Patria Mis Sjogren's Anti-SS-B <0.2 Normal 0.0-0.9 [facility] Comment on above: Performed By: #### JULIA GARCIA UMICRO #### [facility] [address] [place] [address] Patria Mis Hunter Antibodies <0.2 Normal 0.0-0.9 [facility] Comment on above: Performed By: #### JULIA GARCIA UMICRO #### [facility] [address] [place] [address] Patria Abebe CMV AB, IGGon 11-03-2021 Cytomegalovirus (CMV) Ab, IgG 5.70 U/mL Critically high 0.00-0.59 [facility] Comment on above: Result Comment: Nega tive <0.60 Equivocal 0.60 - 0.69 Positive >0.69 Performed By: #### JULIA GARCIA UMICRO #### [facility] [address] [place] [address] Patria Abebe SHIRA-MOTA VIRUS (EBV) AB PROFILEon 11-03-2021 EBV Ab VCA, IgG 122.0 U/mL Critically high 0.0-17.9 [facility] Comment on above: Result Comment: Nega tive <18.0 Equivocal 18.0 - 21.9 Positive >21.9 Performed By: #### Hugo VALENCIA #### [facility] [address] [place] [address] Dr. Evens Bowden EBV Ab VCA, IgM <36.0 Normal 0.0-35.9 [facility] Comment on above: Result Comment: Nega tive <36.0 Equivocal 36.0 - 43.9 Positive >43.9 Performed By: #### Hugo VALENCIA #### [facility] [address] [place] [address] Dr. Evens Bowden EBV Nuclear Antigen Ab, IgG 244.0 U/mL Critically high 0.0-17.9 [facility] Comment on above: Result Comment: Nega tive <18.0 Equivocal 18.0 - 21.9 Positive >21.9 Performed By: #### Hugo VALENCIA #### [facility] [address] [place] [address] Dr. Evens Bowden Interpretation: Comment Normal [facility] Comment on above: Result Comment: EBV Interpretation [...] EBNA. Performed By: #### Hugo VALENCIA #### [facility] [address] [place] [address] Dr. Evens Bowden RHEUMATOID FACTORon 11-04-19 22 RA Latex Turbid. <10.0 Normal <14.0 [facility] Comment on above: Performed By: #### Hugo VALENCIA #### [facility] [address] [place] [address] Dr. Evens Bowden CPKon 11-02-2021 CK [Catalytic activity/Vol] 150 U/L Normal 26-192 [facility] Comment on above: Performed By: #### C K #### [facility] [id number] Evens Bowden MRI BRAIN WO W [...] SANDRA VERDIN Date: 2021-10-01 13:31 Normal [facility] MRI CSPINE WO W CONon 2021 MRI [...] SANDRA VERDIN Date: 2021-10-01 13:52 Normal [facility] INSULINon 09-11-2021 Insulin 5.2 uIU/mL Normal 2.6-24.9 [facility] Comment on above: Performed By: #### P JULIA MURRAY UMICRO #### [facility] [address] [place] [address] Patria Abebe CBC AUTO DIFFon 09-10-2021 BASO # 0.0 103/ul Normal 0.0-0.1 [facility] Comment on above: Performed By: #### C BC #### [facility] [address] [place] [address] Dr. Evens Bowden Basophils/100 WBC (Bld) 0.7 % Normal 0.2-2.0 [facility] Comment on above: Performed By: #### C BC #### [facility] [address] [place] [address] Dr. Evens Bowden EO # 0.1 103/ul Normal 0.0-0.7 [facility] Comment on above: Performed By: #### C BC #### [facility] [address] [place] [address] Dr. Evens Bowden Eosinophils/100 WBC (Bld) 2.6 % Normal 0.9-7.0 [facility] Comment on above: Performed By: #### C BC #### [facility] [address] [place] [address] Dr. Evens Bowden Erythrocyte distribution width (RBC) [Ratio] 13.7 % Normal 11.0-15.0 [facility] Comment on above: Performed By: #### C BC #### [facility] [address] [place] [address] Dr. Evens Bowden Hematocrit (Bld) [Volume fraction] 33.2 % Critically low 36.0-48.0 [facility] Comment on above: Performed By: #### C BC #### [facility] [address] [place] [address] Dr. Evens Bowden Hemoglobin (Bld) [Mass/Vol] 10.4 g/dL Critically low 12.0-16.0 [facility] Comment on above: Performed By: #### C BC #### [facility] [address] [place] [address] Dr. Evens Bowden IG # 0.02 10e3/ul Normal 0.00-0.03 [facility] Comment on above: Performed By: #### C BC #### [facility] [address] [place] [address] Dr. Evens Bowden IG % 0.4 % Normal 0.0-0.5 [facility] Comment on above: Performed By: #### C BC #### [facility] [address] [place] [address] Dr. Evens Bowden LYMPH # 2.0 103/ul Normal 1.2-3.8 [facility] Comment on above: Performed By: #### C BC #### [facility] [address] [place] [address] Dr. Evens Bowden Lymphocytes/100 WBC (Bld) 37.7 % Normal 20.5-60.0 [facility] Comment on above: Performed By: #### C BC #### [facility] [address] [place] [address] Dr. Evens Bowden MANUAL DIFF REQ NO Normal [facility] Comment on above: Performed By: #### C BC #### [facility] [address] [place] [address] Dr. Evens Bowden MCH (RBC) [Entitic mass] 27.2 pg Normal 26.7-34.0 [facility] Comment on above: Performed By: #### C BC #### [facility] [address] [place] [address] Dr. Evens Bowden MCHC (RBC) [Mass/Vol] 31.3 g/dL Normal 29.9-35.2 [facility] Comment on above: Performed By: #### C BC #### [facility] [address] [place] [address] Dr. Evens Bowden MCV (RBC) [Entitic vol] 86.9 fL Normal 81.0-99.0 [facility] Comment on above: Performed By: #### C BC #### [facility] [address] [address] [address] Evens Bowden MONO # 0.4 103/ul Normal 0.3-0.8 [facility] Comment on above: Performed By: #### C BC #### [facility] [address] [address] [address] Evens Bowden Monocytes/100 WBC (Bld) 7.1 % Normal 1.7-12.0 [facility] Comment on above: Performed By: #### C BC #### [facility] [address] [place] [address] Dr. Evens Bowden NEUT # 2.8 103/ul Normal 1.4-6.5 [facility] Comment on above: Performed By: #### C BC #### [facility] [address] [place] [address] Dr. Evens Bowden Neutrophils/100 WBC (Bld) 51.5 % Normal 43.0-75.0 [facility] Comment on above: Performed By: #### C BC #### [facility] [address] [place] [address] Dr. Evens Bowden Platelet mean volume (Bld) [Entitic vol] 8.6 fL Critically low 9.5-13.5 [facility] Comment on above: Performed By: #### C BC #### [facility] [address] [place] [address] Dr. Evens Bowden PLT 428 103/ul Normal 150-450 [facility] Comment on above: Performed By: #### C BC #### [facility] [address] [place] [address] Dr. Evens Bowden RBC 3.82 106/ul Critically low 4.20-5.40 [facility] Comment on above: Performed By: #### C BC #### [facility] [address] [place] [address] Dr. Evens Bowden WBC 5.4 103/ul Normal 4.0-11.0 [facility] Comment on above: Performed By: #### C BC #### [facility] [address] [place] [address] Dr. Evens Bowden CRPon 09-10-2021 CRP [Mass/Vol] mg/L Normal <=1.0 [facility] Comment on above: Performed By: #### C BC #### [facility] [address] [place] [address] Dr. Evens Bowden FREE THYROXINE INDEX T7on FTI 2.52 Normal [facility] Comment on above: Performed By: #### C BC #### [facility] [address] [address] [address] Evens Bowden T3U 35.0 % Normal 23.5-40.5 [facility] Comment on above: Performed By: #### C BC #### [facility] [address] [place] [address] Dr. Evens Bowden T4 [Mass/Vol] 7.20 ug/dL Normal 5.53-11.00 [facility] Comment on above: Performed By: #### C BC #### [facility] [address] [place] [address] Dr. Evens Bowden GLYCOHEMOGLOBIN A1Con 2021 ADA RECOMMENDATION ADA THERAPEUTIC TARG ET 6.0 - 7.0 ACTION SUGGESTED > 7.0 Normal [facility] Comment on above: Performed By: #### P JULIA MURRAY UMICRO #### [facility] [address] [place] [address] Patria Mis Glucose [Mass/Vol] 117 mg/dL Normal [facility] Comment on above: Performed By: #### P JULIA MURRAY UMICRO #### [facility] [address] [place] [address] Pat[place] Mis HbA1c (Bld) [Mass fraction] 5.7 % Normal <=6.0 [facility] Comment on above: Performed By: #### P JULIA MURRAY UMICRO #### [facility] [address] [place] [address] Pat[facility] Mis IRONon 09-10-2021 Iron [Mass/Vol] 46.0 ug/dL Normal 37.0-170.0 [facility] Comment on above: Performed By: #### I MULUGETA PEARSON #### [facility] [address] [address] [address] Evens Bowden LIPID PROFILEon 09-10-2021 CHOL-HDL RATIO NORM SEE BELOW Normal [facility] Comment on above: Result Comment: 3.3 - 4.4 LOW RISK 4.4 - 7.1 AVERAGE RISK 7.1 - 11.0 MODERATE RISK >11.0 HIGH RISK Performed By: #### C MP, TSH, T7, LIPID, CRP #### [facility] [address] [address] [address] Evens Bowden Cholesterol [Mass/Vol] 130 mg/dL Normal <=200 [facility] Comment on above: Performed By: #### C MP, TSH, T7, LIPID, CRP #### [facility] [address] [address] [address] Evens Bowden Cholesterol in HDL [Mass/Vol] 53 mg/dL Normal 40-60 [facility] Comment on above: Performed By: #### C MP, TSH, T7, LIPID, CRP #### [facility] [address] [address] [address] Evens Bowden Cholesterol in LDL [Mass/Vol] 69.2 mg/dL Normal [facility] Comment on above: Performed By: #### C MP, TSH, T7, LIPID, CRP #### [facility] [address] [address] [address] Evens Bowden Cholesterol.total/C holesterol in HDL [Mass ratio] 2.5 {ratio} Normal [facility] Comment on above: Performed By: #### C MP, TSH, T7, LIPID, CRP #### [facility] [address] [address] [address] Evens Bowden HDL NORMAL > or = 60 mg/dl - LO W CARDIOVASCULAR RISK <40 mg/dl - HIGH CARDIOVASCULAR RISK Normal [facility] Comment on above: Performed By: #### C MP, TSH, T7, LIPID, CRP #### [facility] [address] [address] [address] Evens Bowden LDL CALC NORMAL SEE BELOW Normal [facility] Comment on above: Result Comment: <100 mg/dl OPTIMAL 100 - 129 mg/dl NEAR OR ABOVE OPTIMAL 130 - 159 mg/dl BORDERLINE HIGH 160 - 189 mg/dl HIGH >190 mg/dl VERY HIGH Performed By: #### C MP, TSH, T7, LIPID, CRP #### [facility] [address] [address] [address] Evens Bowden Triglyceride [Mass/Vol] 39 mg/dL Normal <=150 [facility] Comment on above: Performed By: #### C MP, TSH, T7, LIPID, CRP #### [facility] [address] [address] [address] Evens Bowden VLDL CALC 7.8 mg/dL Normal [facility] Comment on above: Performed By: #### C MP, TSH, T7, LIPID, CRP #### [facility] [address] [place] [address] Dr. Evens Bowden PROF 14(COMP METB)on 022 Albumin [Mass/Vol] 4.0 g/dL Normal 3.4-5.0 [facility] Comment on above: Performed By: #### C MP, TSH, T7, LIPID, CRP #### [facility] [address] [place] [address] Dr. Evens Bowden Albumin/Globulin [Mass ratio] 1.1 {ratio} Normal [facility] Comment on above: Performed By: #### C MP, TSH, T7, LIPID, CRP #### [facility] [address] [place] [address] Dr. Evens Bowden ALP [Catalytic activity/Vol] 84 U/L Normal 46-116 [facility] Comment on above: Performed By: #### C MP, TSH, T7, LIPID, CRP #### [facility] [address] [place] [address] Dr. Evens Bowden ALT [Catalytic activity/Vol] 33 U/L Normal 14-59 [facility] Comment on above: Performed By: #### C MP, TSH, T7, LIPID, CRP #### [facility] [address] [place] [address] Dr. Evens Bowden Anion gap [Moles/Vol] 12.1 mmol/L Normal [facility] Comment on above: Performed By: #### C MP, TSH, T7, LIPID, CRP #### [facility] [address] [address] [address] Evens Bowden AST [Catalytic activity/Vol] 18 U/L Normal 15-37 [facility] Comment on above: Performed By: #### C MP, TSH, T7, LIPID, CRP #### [facility] [address] [address] [address] Evens Bowden Bilirubin [Mass/Vol] 0.5 mg/dL Normal 0.2-1.3 [facility] Comment on above: Performed By: #### C MP, TSH, T7, LIPID, CRP #### [facility] [address] [address] [address] Evens Bowden Calcium [Mass/Vol] 8.2 mg/dL Critically low 8.5-10.1 [facility] Comment on above: Performed By: #### C MP, TSH, T7, LIPID, CRP #### [facility] [address] [address] [address] Evens Bowden Chloride [Moles/Vol] 105 mmol/L Normal 98-107 [facility] Comment on above: Performed By: #### C MP, TSH, T7, LIPID, CRP #### [facility] [address] [address] [address] Evens Bowden CO2 [Moles/Vol] 26.3 mmol/L Normal 22.0-30.0 [facility] Comment on above: Performed By: #### C MP, TSH, T7, LIPID, CRP #### [facility] [address] [address] [address] Evens Bowden Creatinine [Mass/Vol] 0.62 mg/dL Normal 0.52-1.04 [facility] Comment on above: Performed By: #### C MP, TSH, T7, LIPID, CRP #### [facility] [address] [address] [address] Evens Bowden EGFR-AF TOGOLESE >60 Normal >=60 [facility] Comment on above: Performed By: #### C MP, TSH, T7, LIPID, CRP #### [facility] [address] [address] [address] Evens Bowden EGFR-NON AF TOGOLESE >60 Normal >=60 [facility] Comment on above: Performed By: #### C MP, TSH, T7, LIPID, CRP #### [facility] [address] [place] [address] Dr. Evens Bowden Globulin (S) [Mass/Vol] 3.5 g/dL Normal [facility] Comment on above: Performed By: #### C MP, TSH, T7, LIPID, CRP #### [facility] [address] [place] [address] Dr. Evens Bowden Glucose [Mass/Vol] 90 mg/dL Normal 74-106 [facility] Comment on above: Performed By: #### C MP, TSH, T7, LIPID, CRP #### [facility] [address] [place] [address] Dr. Evens Bowden Potassium [Moles/Vol] 4.4 mmol/L Normal 3.4-5.0 [facility] Comment on above: Performed By: #### C MP, TSH, T7, LIPID, CRP #### [facility] [address] [place] [address] Dr. Evens Bowden Protein [Mass/Vol] 7.5 g/dL Normal 6.1-8.2 [facility] Comment on above: Performed By: #### C MP, TSH, T7, LIPID, CRP #### [facility] [address] [place] [address] Dr. Evens Bowden Sodium [Moles/Vol] 139 mmol/L Normal 137-145 [facility] Comment on above: Performed By: #### C MP, TSH, T7, LIPID, CRP #### [facility] [address] [place] [address] Dr. Evens Bowden Urea nitrogen [Mass/Vol] 7.0 mg/dL Normal 7.0-18.0 [facility] Comment on above: Performed By: #### C MP, TSH, T7, LIPID, CRP #### [facility] [address] [place] [address] Dr. Evens Bowden Urea nitrogen/Creatinine [Mass ratio] 11.3 mg/mg Normal [facility] Comment on above: Performed By: #### C MP, TSH, T7, LIPID, CRP #### [facility] [address] [place] [address] Dr. Evens Bowden SED RATE WESTERGRENon 2021 SED RATE 6 mm/hr Normal <=20 [facility] Comment on above: Performed By: #### M USKAB #### [facility] [address] [place] [address] Dr. Evens Bowden TSHon 09-10-2021 TSH 1.205 uIU/mL Normal 0.470-4.680 [facility] Comment on above: Performed By: #### C BC #### [facility] [address] [place] [address] Dr. Evens Bowden TSH RANGE SEE BELOW Normal [facility] Comment on above: Result Comment: <0.3 4 UIU/ml HYPERTHYROID 0.34-5.60 UIU/ml EUTHYROID >5.60 UIU/ml HYPOTHYROID Performed By: #### C BC #### [facility] [address] [place] [address] Dr. Evens Bowden VITAMIN D 25 OHon 09-10-2021 VIT D 25-OH 11.5 ng/mL Normal [facility] Comment on above: Performed By: #### I MICHEL VITPATRICIA #### [facility] [address] [place] [address] Dr. Evens Bowden VIT D RANGES SEE BELOW Normal [facility] Comment on above: Result Comment: <20 ng/mL Vit D deficient 20 - <30 ng/mL Vit D insufficient 30 - 100 ng/mL Vit D sufficient >100 ng/mL Potential Toxicity Performed By: #### I MICHEL VITAD #### [facility] [address] [place] [address] Dr. Evens Bowden VITAMIN B1 (THIAMINE)on 02-27 Vit. B1, Whole Blood 85.1 nmol/L Normal 66.5-200.0 [facility] Comment on above: Performed By: #### C BC #### [facility] [address] [place] [address] Dr. Evens Bowden CBC AUTO DIFFon 03-10-2021 BASO # 0.0 103/ul Normal 0.0-0.1 [facility] Comment on above: Performed By: #### M MASOODB #### [facility] [address] [place] [address] Dr. Evens Bowden Basophils/100 WBC (Bld) 0.8 % Normal 0.2-2.0 [facility] Comment on above: Performed By: #### M MASOODB #### [facility] [address] [place] [address] Dr. Evens Bowden EO # 0.2 103/ul Normal 0.0-0.7 [facility] Comment on above: Performed By: #### M MASOODB #### [facility] [address] [place] [address] Dr. Evens Bowden Eosinophils/100 WBC (Bld) 3.4 % Normal 0.9-7.0 [facility] Comment on above: Performed By: #### M MASOODB #### [facility] [address] [place] [address] Dr. Evens Bowden Erythrocyte distribution width (RBC) [Ratio] 13.2 % Normal 11.0-15.0 [facility] Comment on above: Performed By: #### M MASOODB #### [facility] [address] [place] [address] Dr. Evens Bowden Hematocrit (Bld) [Volume fraction] 34.2 % Critically low 36.0-48.0 [facility] Comment on above: Performed By: #### M MASOODB #### [facility] [address] [place] [address] Dr. Evens Bowden Hemoglobin (Bld) [Mass/Vol] 11.2 g/dL Critically low 12.0-16.0 [facility] Comment on above: Performed By: #### M MASOODB #### [facility] [address] [address] [address] Evens Bowden IG # 0.01 10e3/ul Normal 0.00-0.03 [facility] Comment on above: Performed By: #### M ERIK #### [facility] [address] [place] [address] Dr. Evens Bowden IG % 0.2 % Normal 0.0-0.5 [facility] Comment on above: Performed By: #### M MASOODB #### [facility] [address] [place] [address] Dr. Evens Bowden LYMPH # 1.6 103/ul Normal 1.2-3.8 [facility] Comment on above: Performed By: #### M ERIK #### [facility] [address] [place] [address] Dr. Evens Bowden Lymphocytes/100 WBC (Bld) 32.5 % Normal 20.5-60.0 [facility] Comment on above: Performed By: #### M ERIK #### [facility] [address] [place] [address] Dr. Evens Bowden MANUAL DIFF REQ NO Normal [facility] Comment on above: Performed By: #### Hugo VALENCIA #### [facility] [address] [place] [address] Dr. Evens Bowden MCH (RBC) [Entitic mass] 30.6 pg Normal 26.7-34.0 [facility] Comment on above: Performed By: #### Hugo VALENCIA #### [facility] [address] [place] [address] Dr. Evens Bowden MCHC (RBC) [Mass/Vol] 32.7 g/dL Normal 29.9-35.2 [facility] Comment on above: Performed By: #### M ERIK #### [facility] [address] [place] [address] Dr. Evens Bowden MCV (RBC) [Entitic vol] 93.4 fL Normal 81.0-99.0 [facility] Comment on above: Performed By: #### Hugo VALENCIA #### [facility] [address] [address] [address] Evens Bowden MONO # 0.5 103/ul Normal 0.3-0.8 [facility] Comment on above: Performed By: #### M MASOODB #### [facility] [address] [place] [address] Dr. Evens Bowden Monocytes/100 WBC (Bld) 10.7 % Normal 1.7-12.0 [facility] Comment on above: Performed By: #### M MASOODB #### [facility] [address] [place] [address] Dr. Evens Bowden NEUT # 2.6 103/ul Normal 1.4-6.5 [facility] Comment on above: Performed By: #### M MASOODB #### [facility] [address] [place] [address] Dr. Evens Bowden Neutrophils/100 WBC (Bld) 52.4 % Normal 43.0-75.0 [facility] Comment on above: Performed By: #### M ERIK #### [facility] [address] [place] [address] Dr. Evens Bowden Platelet mean volume (Bld) [Entitic vol] 9.3 fL Critically low 9.5-13.5 [facility] Comment on above: Performed By: #### Hugo CORREIAB #### [facility] [address] [place] [address] Dr. Evens Bowden PLT 373 103/ul Normal 150-450 [facility] Comment on above: Performed By: #### M MASOODB #### [facility] [address] [place] [address] Dr. Evens Bowden RBC 3.66 106/ul Critically low 4.20-5.40 [facility] Comment on above: Performed By: #### M MASOODB #### [facility] [address] [place] [address] Dr. Evens Bowden WBC 5.0 103/ul Normal 4.0-11.0 [facility] Comment on above: Performed By: #### M ERIK #### [facility] [address] [place] [address] Dr. Evens Bowden FOLATEon 03-10-2021 FOLATE 7.50 ng/mL Normal >=2.76 [facility] Comment on above: Performed By: #### P JULIA MURRAY UMICRO #### [facility] [address] [address] Patria Mis IRON AND TIBCon 03-10-2021 % SATURATION 8.7 % Normal [facility] Comment on above: Performed By: #### P JULIA MURRAY UMICRO #### [facility] [address] [address] Pat[place] Mis Iron [Mass/Vol] 29.0 ug/dL Critically low 37.0-170.0 [facility] Comment on above: Performed By: #### JULIA GARCIA UMICRO #### [facility] [address] [place] [address] Pat[place] Mis TIBC DIRECT 332.0 ug/dL Normal 261.0-497.0 [facility] Comment on above: Performed By: #### P JULIA MURRAY UMICRO #### [facility] [address] [address] Patria Mis MAGNESIUMon 03-10-2021 Magnesium [Mass/Vol] 1.7 mg/dL Normal 1.6-2.3 [facility] Comment on above: Performed By: #### C BC #### [facility] [address] [place] [address] Dr. Evens Bowden PHOSPHORUSon 03-10-2021 Phosphate [Mass/Vol] 3.7 mg/dL Normal 2.5-4.5 [facility] Comment on above: Performed By: #### C BC #### [facility] [address] [place] [address] Dr. Evens Bowden PROF 14(COMP METB)on 021 Albumin [Mass/Vol] 3.6 g/dL Normal 3.5-5.0 [facility] Comment on above: Performed By: #### C BC #### [facility] [address] [place] [address] Dr. Evens Bowden Albumin/Globulin [Mass ratio] 1.1 {ratio} Normal [facility] Comment on above: Performed By: #### C BC #### [facility] [address] [place] [address] Dr. Evens Bowden ALP [Catalytic activity/Vol] 91 U/L Normal 38-126 [facility] Comment on above: Performed By: #### C BC #### [facility] [address] [place] [address] Dr. Evens Bowden ALT [Catalytic activity/Vol] 31 U/L Normal 9-52 [facility] Comment on above: Performed By: #### C BC #### [facility] [address] [place] [address] Dr. Evens Bowden Anion gap [Moles/Vol] 12.5 mmol/L Normal [facility] Comment on above: Performed By: #### C BC #### [facility] [address] [place] [address] Dr. Evens Bowden AST [Catalytic activity/Vol] 22 U/L Normal 14-36 [facility] Comment on above: Performed By: #### C BC #### [facility] [address] [place] [address] Dr. Evens Bowden Bilirubin [Mass/Vol] 0.4 mg/dL Normal 0.2-1.3 [facility] Comment on above: Performed By: #### C BC #### [facility] [address] [place] [address] Dr. Evens Bowden Calcium [Mass/Vol] 8.2 mg/dL Critically low 8.4-10.2 [facility] Comment on above: Performed By: #### C BC #### [facility] [address] [place] [address] Dr. Evens Bowden Chloride [Moles/Vol] 106 mmol/L Normal 98-107 [facility] Comment on above: Performed By: #### C BC #### [facility] [address] [place] [address] Dr. Evens Bowden CO2 [Moles/Vol] 26.3 mmol/L Normal 22.0-30.0 [facility] Comment on above: Performed By: #### C BC #### [facility] [address] [address] [address] Evens Bowden Creatinine [Mass/Vol] 0.57 mg/dL Normal 0.52-1.04 [facility] Comment on above: Performed By: #### C BC #### [facility] [address] [address] [address] Evens Bowden EGFR-AF TOGOLESE >60 Normal >=60 [facility] Comment on above: Performed By: #### C BC #### [facility] [address] [address] [address] Evens Bowden EGFR-NON AF TOGOLESE >60 Normal >=60 [facility] Comment on above: Performed By: #### C BC #### [facility] [address] [place] [address] Dr. Evens Bowden Globulin (S) [Mass/Vol] 3.4 g/dL Normal [facility] Comment on above: Performed By: #### C BC #### [facility] [address] [place] [address] Dr. Evens Bowden Glucose [Mass/Vol] 92 mg/dL Normal 74-106 [facility] Comment on above: Performed By: #### C BC #### [facility] [address] [place] [address] Dr. Evens Bowden Potassium [Moles/Vol] 3.8 mmol/L Normal 3.4-5.0 [facility] Comment on above: Performed By: #### C BC #### [facility] [address] [place] [address] Dr. Evens Bowden Protein [Mass/Vol] 7.0 g/dL Normal 6.1-8.2 [facility] Comment on above: Performed By: #### C BC #### [facility] [address] [place] [address] Dr. Evens Bowden Sodium [Moles/Vol] 141 mmol/L Normal 137-145 [facility] Comment on above: Performed By: #### C BC #### [facility] [address] [address] [address] Evens Bowden Urea nitrogen [Mass/Vol] 7.0 mg/dL Normal 7.0-17.0 [facility] Comment on above: Performed By: #### C BC #### [facility] [address] [place] [address] Dr. Evens Bowden Urea nitrogen/Creatinine [Mass ratio] 12.3 mg/mg Normal [facility] Comment on above: Performed By: #### C BC #### [facility] [address] [address] [address] Evens Bowden VITAMIN B12on 03-10-2021 Cobalamin (Vitamin B12) [Mass/Vol] 211.0 pg/mL Critically low 239.0-931.0 [facility] Comment on above: Performed By: #### P JULIA MURRAY UMICRO #### [facility] [address] [place], [place] [id number] Patria Mis VITAMIN D 25 OHon 03-10-2021 VIT D 25-OH 15.8 ng/mL Normal [facility] Comment on above: Performed By: #### P SHOSHANA MURRAYR UMICRO #### [facility] [address] [place], [place] [id number] Patria Mis VIT D RANGES SEE BELOW Normal [facility] Comment on above: Result Comment: <20 ng/mL Vit D deficient 20 - <30 ng/mL Vit D insufficient 30 - 100 ng/mL Vit D sufficient >100 ng/mL Potential Toxicity Performed By: #### P REGU, ERUR, UMICRO #### [facility] [address] [place], [place] [id number] Patria Mis VITAMIN D 25 OHon 02-10-2021 VIT D 25-OH 16.7 ng/mL Normal [facility] Comment on above: Performed By: #### M ERIK #### [facility] [address] [place], [place] [id number] Dr. Evens Bowden VIT D RANGES SEE BELOW Normal [facility] Comment on above: Result Comment: <20 ng/mL Vit D deficient 20 - <30 ng/mL Vit D insufficient 30 - 100 ng/mL Vit D sufficient >100 ng/mL Potential Toxicity Performed By: #### M USKAB #### [facility] [address] [place] [address] Dr. Evens Bowden CBC AUTO DIFFon 01-02-2021 BASO # 0.1 103/ul Normal 0.0-0.1 [facility] Comment on above: Performed By: #### C BC #### [facility] [address] [place] [address] Dr. Evens Bowden Basophils/100 WBC (Bld) 0.5 % Normal 0.2-2.0 [facility] Comment on above: Performed By: #### C BC #### [facility] [address] [place] [address] Dr. Evens Bowden EO # 0.0 103/ul Normal 0.0-0.7 [facility] Comment on above: Performed By: #### C BC #### [facility] [address] [place] [address] Dr. Evens Bowden Eosinophils/100 WBC (Bld) 0.4 % Critically low 0.9-7.0 [facility] Comment on above: Performed By: #### C BC #### [facility] [address] [place] [address] Dr. Evens Bowden Erythrocyte distribution width (RBC) [Ratio] 13.2 % Normal 11.0-15.0 [facility] Comment on above: Performed By: #### C BC #### [facility] [address] [place] [address] Dr. Evens Bowden Hematocrit (Bld) [Volume fraction] 35.3 % Critically low 36.0-48.0 [facility] Comment on above: Performed By: #### C BC #### [facility] [address] [place] [address] Dr. Evens Bowden Hemoglobin (Bld) [Mass/Vol] 11.6 g/dL Critically low 12.0-16.0 [facility] Comment on above: Performed By: #### C BC #### [facility] [address] [place] [address] Dr. Evens Bowden IG # 0.02 10e3/ul Normal 0.00-0.03 [facility] Comment on above: Performed By: #### C BC #### [facility] [address] [place] [address] Dr. Evens Bowden IG % 0.2 % Normal 0.0-0.5 [facility] Comment on above: Performed By: #### C BC #### [facility] [address] [place] [address] Dr. Evens Bowden LYMPH # 1.1 103/ul Critically low 1.2-3.8 [facility] Comment on above: Performed By: #### C BC #### [facility] [address] [place] [address] Dr. Evens Bowden Lymphocytes/100 WBC (Bld) 11.0 % Critically low 20.5-60.0 [facility] Comment on above: Performed By: #### C BC #### [facility] [address] [place] [address] Dr. Evens Bowden MANUAL DIFF REQ NO Normal [facility] Comment on above: Performed By: #### C BC #### [facility] [address] [place] [address] Dr. Evens Bowden MCH (RBC) [Entitic mass] 30.5 pg Normal 26.7-34.0 [facility] Comment on above: Performed By: #### C BC #### [facility] [address] [place] [address] Dr. Evens Bowden MCHC (RBC) [Mass/Vol] 32.9 g/dL Normal 29.9-35.2 [facility] Comment on above: Performed By: #### C BC #### [facility] [address] [place] [address] Dr. Evens Bowden MCV (RBC) [Entitic vol] 92.9 fL Normal 81.0-99.0 [facility] Comment on above: Performed By: #### C BC #### [facility] [address] [place] [address] Dr. Evens Bowden MONO # 0.6 103/ul Normal 0.3-0.8 [facility] Comment on above: Performed By: #### C BC #### [facility] [address] [place] [address] Dr. Evens Bowden Monocytes/100 WBC (Bld) 6.2 % Normal 1.7-12.0 [facility] Comment on above: Performed By: #### C BC #### [facility] [address] [place] [address] Dr. Evens Bowden NEUT # 8.4 103/ul Critically high 1.4-6.5 [facility] Comment on above: Performed By: #### C BC #### [facility] [address] [place] [address] Dr. Evens Bowden Neutrophils/100 WBC (Bld) 81.7 % Critically high 43.0-75.0 [facility] Comment on above: Performed By: #### C BC #### [facility] [address] [place] [address] Dr. Evens Bowden Platelet mean volume (Bld) [Entitic vol] 10.0 fL Normal 9.5-13.5 [facility] Comment on above: Performed By: #### C BC #### [facility] [address] [place] [address] Dr. Evens Bowden PLT 317 103/ul Normal 150-450 [facility] Comment on above: Performed By: #### C BC #### [facility] [address] [place] [address] Dr. Evens Bowden RBC 3.80 106/ul Critically low 4.20-5.40 [facility] Comment on above: Performed By: #### C BC #### [facility] [address] [place] [address] Dr. Evens Bowden WBC 10.2 103/ul Normal 4.0-11.0 [facility] Comment on above: Performed By: #### C BC #### [facility] [address] [place] [address] ABD/PELVIS WO CONon [...] AUDREY ROWE Date: 2021-01-02 10:13 Normal [facility] CULTURE URINEon 01-02-2021 CULTURE URINE Culture Observations : MODERATE GROWTH OF MIXED GENITAL SHEYLA. NO POTENTIAL PATHOGENS SEEN. Normal [facility] Comment on above: Performed By: #### M USKAB #### [facility] [address] [address] [address] Evens MENDOZA URINE PROFILEon 1 Bilirubin Ql (U) SMALL Abnormal NEGATIVE [facility] Comment on above: Performed By: #### P JULIA MURRAY UMICRO #### [facility] [address] [address] Patria Abebe Clarity (U) SL CLOUDY Abnormal CLEAR [facility] Comment on above: Performed By: #### P JULIA MURRAY UMICRO #### [facility] [address] [place] [address] Patria Mis Color (U) YELLOW Normal YELLOW [facility] Comment on above: Performed By: #### JULIA GARCIA UMICRO #### [facility] [address] [place] [address] Patria Mis ERUTEE A micrscopic examina tion will be performed if indicated. Normal [facility] Comment on above: Performed By: #### JULIA GARCIA UMICRO #### [facility] [address] [place] [address] Patria Mis Glucose Ql (U) Negative Normal NEGATIVE [facility] Comment on above: Performed By: #### JULIA GARCIA UMICRO #### [facility] [address] [place] [address] Patria Mis Hemoglobin Ql (U) TRACE-LYSED Abnormal NEGATIVE [facility] Comment on above: Performed By: #### JULIA GARCIA UMICRO #### [facility] [address] [place] [address] Patria Mis Ketones Ql (U) 40 mg/dl Abnormal NEGATIVE [facility] Comment on above: Performed By: #### JULIA GARCIA UMICRO #### [facility] [address] [place] [address] Patria Mis LEUKOCYTES Negative Normal NEGATIVE [facility] Comment on above: Performed By: #### P JULIA MURRAY UMICRO #### [facility] [address] [address] Patria Mis Nitrite Ql (U) Negative Normal NEGATIVE [facility] Comment on above: Performed By: #### P JULIA MURRAY UMWARRENRO #### [facility] [address] [place] [address] Patria Mis pH (U) 6.0 [pH] Normal 5-9 [facility] Comment on above: Performed By: #### JULIA GARCIA UMICRO #### [facility] [address] [place] [address] Patria Mis SPEC GRAVITY >=1.030 Abnormal 1.005-<=1.025 [facility] Comment on above: Performed By: #### P JULIA MURRAY UMICRO #### [facility] [address] [place] [address] Patria Abebe UA PROTEIN Negative Normal NEGATIVE/ TRACE [facility] Comment on above: Performed By: #### P JULIA MURRAY UMICRO #### [facility] [address] [place] [address] Patria Abebe UR MICRO IND INDICATED Normal [facility] Comment on above: Performed By: #### P JULIA MURRAY UMICRO #### [facility] [address] [place] [address] Patria Abebe Urobilinogen Qn (U) 4 {Johnnie'U}/dL Abnormal 0.2 - 1.0 [facility] Comment on above: Performed By: #### JULIA GARCIA UMICRO #### [facility] [address] [place] [address] Patria Abebe LIPASEon 01-02-2021 Lipase [Catalytic activity/Vol] 64.0 U/L Normal 23.0-300.0 [facility] Comment on above: Performed By: #### C BC #### [facility] [address] [place] [address] Dr. Evens Bowden URon 01-02-2021 , QUAL Negative Normal NEGATIVE [facility] Comment on above: Performed By: #### P JULIA MURRAY UMICRO #### [facility] [address] [place] [address] Patria Abebe PROF 14(COMP METB)on 021 Albumin [Mass/Vol] 4.2 g/dL Normal 3.5-5.0 [facility] Comment on above: Performed By: #### C BC #### [facility] [address] [place] [address] Dr. Evens Bowden Albumin/Globulin [Mass ratio] 1.1 {ratio} Normal [facility] Comment on above: Performed By: #### C BC #### [facility] [address] [place] [address] Dr. Evens Bowden ALP [Catalytic activity/Vol] 100 U/L Normal 38-126 [facility] Comment on above: Performed By: #### C BC #### [facility] [address] [place] [address] Dr. Evens Bowden ALT [Catalytic activity/Vol] 41 U/L Normal 9-52 [facility] Comment on above: Performed By: #### C BC #### [facility] [address] [place] [address] Dr. Evens Bowden Anion gap [Moles/Vol] 14.4 mmol/L Normal [facility] Comment on above: Performed By: #### C BC #### [facility] [address] [place] [address] Dr. Evens Bowden AST [Catalytic activity/Vol] 30 U/L Normal 14-36 [facility] Comment on above: Performed By: #### C BC #### [facility] [address] [place] [address] Dr. Evens Bowden Bilirubin [Mass/Vol] 0.5 mg/dL Normal 0.2-1.3 [facility] Comment on above: Performed By: #### C BC #### [facility] [address] [place] [address] Dr. Evens Bowden Calcium [Mass/Vol] 9.0 mg/dL Normal 8.4-10.2 [facility] Comment on above: Performed By: #### C BC #### [facility] [address] [place] [address] Dr. Evens Bowden Chloride [Moles/Vol] 106 mmol/L Normal 98-107 [facility] Comment on above: Performed By: #### C BC #### [facility] [address] [place] [address] Dr. Evens Bowden CO2 [Moles/Vol] 26.3 mmol/L Normal 22.0-30.0 [facility] Comment on above: Performed By: #### C BC #### [facility] [address] [place] [address] Dr. Evens Bowden Creatinine [Mass/Vol] 0.74 mg/dL Normal 0.52-1.04 [facility] Comment on above: Performed By: #### C BC #### [facility] [address] [place] [address] Dr. Evens Bowedn EGFR-AF TOGOLESE >60 Normal >=60 [facility] Comment on above: Performed By: #### C BC #### [facility] [address] [address] [address] Evens Bowden EGFR-NON AF TOGOLESE >60 Normal >=60 [facility] Comment on above: Performed By: #### C BC #### [facility] [address] [place] [address] Dr. Evens Bowden Globulin (S) [Mass/Vol] 3.7 g/dL Normal [facility] Comment on above: Performed By: #### C BC #### [facility] [address] [place] [address] Dr. Evens Bowden Glucose [Mass/Vol] 112 mg/dL Critically high 74-106 [facility] Comment on above: Performed By: #### C BC #### [facility] [address] [place] [address] Dr. Evens Bowden Potassium [Moles/Vol] 3.7 mmol/L Normal 3.4-5.0 [facility] Comment on above: Performed By: #### C BC #### [facility] [address] [place] [address] Dr. Evens Bowden Protein [Mass/Vol] 7.9 g/dL Normal 6.1-8.2 [facility] Comment on above: Performed By: #### C BC #### [facility] [address] [address] [address] Evens Bowden Sodium [Moles/Vol] 143 mmol/L Normal 137-145 [facility] Comment on above: Performed By: #### C BC #### [facility] [address] [place] [address] Dr. Evens Bowden Urea nitrogen [Mass/Vol] 10.0 mg/dL Normal 7.0-17.0 [facility] Comment on above: Performed By: #### C BC #### [facility] [address] [address] [address] Evens Bowden Urea nitrogen/Creatinine [Mass ratio] 13.5 mg/mg Normal [facility] Comment on above: Performed By: #### C BC #### [facility] [address] [address] [address] Evens Bowden URINE MICROSCOPIC ONLYon BACTERIA MODERATE Abnormal NONE SEEN [facility] Comment on above: Performed By: #### P REGU, ERUR, UMICRO #### [facility] [address] [place] [address] Patria Mis Bacteria identified Cx Nom (U) INDICATED Normal [facility] Comment on above: Performed By: #### P REGU, ERUR, UMICRO #### [facility] [address] [place] [address] Patria Mis CAST NONE SEEN Normal NONE SEEN [facility] Comment on above: Performed By: #### P REGU, ERUR, UMICRO #### [facility] [address] [address] Patria Mis Crystals LM Nom (Urine sed) NONE SEEN Normal NONE SEEN [facility] Comment on above: Performed By: #### P REGU, ERUR, UMICRO #### [facility] [address] [place] [address] Patria Mis Epithelial cells LM Ql (Urine sed) FEW Abnormal NONE SEEN /RARE [facility] Comment on above: Performed By: #### P REGU, ERUR, UMICRO #### [facility] [address] [address] Patria Mis MUCOUS TRACE Abnormal NONE SEEN [facility] Comment on above: Performed By: #### P REGU, ERUR, UMICRO #### [facility] [address] [place] [address] Patria Mis RBC 0-2 Normal 0-2 [facility] Comment on above: Performed By: #### P REGU, ERUR, UMICRO #### [facility] [address] [place], [place] [address] Patria Abebe WBC 0-2 Abnormal NONE SEEN [facility] Comment on above: Performed By: #### P JULIA MURRAY UMICRO #### [facility] [address] [place], [place] [address] Patria Abebe MRI KNEE RT WO CONon [...] ALISON TONEY Date: 2020-12-08 16:25 Normal [facility] CBC and Differentialon 03-10 Abs Baso 0.03 k/uL Normal <0.11 [facility] Abs Alexander 0.81 k/uL Normal <0.87 [facility] Abs Neut 2.94 k/uL Normal 1.45-7.50 [facility] Absolute nRBC <0.01 Normal <0.01 [facility] Basophils/100 WBC Auto (Bld) 0.5 % Normal [facility] DTYPE Auto Diff Normal [facility] Eosinophils Auto #/vol (Bld) 0.27 10*3/uL Normal <0.46 [facility] Eosinophils/100 WBC Auto (Bld) 4.6 % Normal [facility] Erythrocyte distribution width Auto Ratio (RBC) 12.7 % Normal 11.5-15.0 [facility] Hematocrit Auto Volume Fraction (Bld) 36.0 % Normal 36.0-46.0 [facility] Hemoglobin mass conc (Bld) 12.1 g/dL Normal 11.5-15.5 [facility] Lymphocytes Auto #/vol (Bld) 1.88 10*3/uL Normal 1.00-4.00 [facility] Lymphocytes/100 WBC Auto (Bld) 31.7 % Normal [facility] MCH Auto Entitic mass (RBC) 30.6 pG Normal 26.0-34.0 [facility] MCHC Auto mass conc (RBC) 33.6 g/dL Normal 30.5-36.0 [facility] MCV Auto Entitic volume (RBC) 91.1 fL Normal 80.0-100.0 [facility] Monocytes/100 WBC Auto (Bld) 13.7 % Normal [facility] Neutrophils/100 WBC Auto (Bld) 49.5 % Normal [facility] NRBCs 0.0 /100 WBC Normal 0 [facility] Platelet mean volume Auto Entitic volume (Bld) 9.4 fL Normal 9.0-12.7 [facility] Platelets Auto #/vol (Bld) 257 10*3/uL Normal 150-400 [facility] RBC Auto #/vol (Bld) 3.95 10*6/uL Normal 3.90-5.20 [facility] WBC Auto #/vol (Bld) 5.93 10*3/uL Normal 3.70-11.00 [facility] Comp Metabolic Panelon 03-10 Albumin mass conc 3.6 g/dL Low 3.9-4.9 [facility] ALP enzyme act/vol 46 U/L Normal 34-123 [facility] ALT enzyme act/vol 18 U/L Normal 7-38 [facility] Anion gap 3 molar conc 10 mmol/L Normal 9-18 [facility] AST enzyme act/vol Unable to assay. Spe cimen significantly hemolyzed. Normal 13-35 [facility] Bilirubin mass conc 0.2 mg/dL Normal 0.2-1.3 [facility] Calcium mass conc 8.1 mg/dL Low 8.6-10.0 [facility] Chloride molar conc 103 mmol/L Normal 97-105 [facility] CO2 molar conc 27 mmol/L Normal 22-30 [facility] Creatinine mass conc 0.68 mg/dL Normal 0.58-0.96 [facility] eGFR- Amer. >60 Normal [facility] GFR/1.73 sq M predicted among non-blacks MDRD vol rate/area (S/P/Bld) mL/min/{1.73_m2} Normal [facility] Comment on above: Result Comment: [...] Glucose mass conc 105 mg/dL High 74-99 [facility] Comment on above: Result Comment: The [place] [employer] (ADA) provides guidance for cutoff [...] Standards of Medical Care in Diabetes 2016, [place] [employer]. Diabetes Care. 2016.39(Suppl 1). Potassium molar conc 4.1 mmol/L Normal 3.7-5.1 [facility] Protein mass conc 6.1 g/dL Low 6.3-8.0 [facility] Sodium molar conc 140 mmol/L Normal 136-144 [facility] Urea nitrogen mass conc 8 mg/dL Normal 7-21 [facility] ED NOTEon 03-10-2018 ED NOTE HNO ID: [id number] thor: Felipe (Medic) Gina AlarconService: (none)Author Type: Decision Science Analyst and TechnicianType: ED NotesFiled: 03/09/2018 11:50 [...] ETC. Denies N/V, SOB. No othercomplaints noted. [facility] ED NOTE HNO ID: [id number] Author: Gayla CastRn) DUSTIN Hurtado Service: (none) Author Type: Registered Nurse Type: ED Notes Filed: 03/10/2018 12:36 AM Note Text: Patient transported [facility] with Tech. [facility] ED NOTE HNO ID: [id number] Author: Gayla CastRn) DUSTIN Hurtado Service: (none) Author Type: Registered Nurse Type: ED Notes Filed: 03/10/2018 2:46 AM Note Text: Clean catch urine specimen obtained and sent. [facility] ED NOTE HNO ID: [id number] thor: Iliana (Rn) PEGGY Padillaervice: (none)Author Type: Registered NurseType: ED NotesFiled: 03/10/2018 3:32 AMNote Text: Discharge instructions per provider, the patient verbalizesunderstanding. No additional questions or concerns at this time. Patient Vital signs stable, no acute distress noted. Patient ambulatory out ofED. [facility] ED PROV NOTEon 03-10-2018 Protein mass conc HNO ID: [id number] thor: Francis Eagle: (none)Author Type: PhysicianType: ED Provider NotesFiled: 03/10/2018 6:42 AMNote Text:ED Provider NotePatient Name: Joesph ManciaJeremyRN: [id number] DATE: 03/09/18HistoryPatient presents with:Chest PainPhysical 27-year-old female [...] - ED (all recorded)Pulmonary Embolism Row Name 03/10/181 03/10/189 PERC Is pretest probability for PE > [...] 10 0321Chest wall painMDM / Disposition / [id number] female comes into the emergency department complaining [...] Normal sinus rhythmRate: 80Axis: Normal axisIntervals: Normal VT intervalQRS Complex: NormalST Segment: Normal ST-T segmentsQT Interval: NormalCompared with Prior:Interpretation performed by Shar AvilaThe patient was discharged.Counseled patient regarding lab results, radiology results and suspecteddiagnosis. As well as the need for follow-up. Discharged home withverbal and written instructions. They were instructed to return as neededfor persistent or worsening symptoms or any new concerns.Condition at disposition is improved.SIGNATURE: Chapin Avila, TODD03/10/18 0319Attending NoteI have personally performed a [...] continued management.Other additions or changes: As editedSignature: Anderson Powell: 03/10/2018Time: 6:40 AMAaron Pooja03/10/18 0642 Normal [facility] [facility] 03[facility]2018 Protein mass conc NAME : MARK CISSE ID : [id number] : 1990 Gender : FemaleRace : CaucasianORD : Procedure Date : Mar 09 2018 23:52:59Edit Date : Mar 10 2018 05:16:28 Diagnosis:Normal sinus rhythmNormal ECGNo previous ECGs availableConfirmed by DO SILVA AARON ([id number]), newspaper editor DEIRDRE ELIZONDO ([id number]) on 03/10/2018 5:16:22 AM Ventricular Rate : 80 BPMAtrial Rate : 80 BPMP-R Interval : 166 msQRS Duration : 92 msQ-T Interval : 394 msQTC Calculation(Bezet) : 454 msP [place] : 25 degreesR [place] : 19 degreesT [place] : 29 degrees Test Reason : Location : 302 : ED ED Overread By : DO SILVA AARONEdited By : REFUGIO ELIZONDOeferred By : ,Acquired by : , Normal [facility] High Sens Troponin Ton 03-10 High Sensitivity RONAK <6 Normal <12 [facility] Comment on above: Result Comment: [...] Lipase enzyme act/vol 26 U/L Normal 16-61 [facility] PROGRESSon 03-10-2018 Protein mass conc HNO ID: [id number] thor: Mehreen Alves RtService: (none)Author Type: (none)Type: Progress NotesFiled: 03/10/2018 12:51 AMNote Text: Radiology Service Progress NotePATIENT NAME: Joesph NievesRN: [id number] OF SERVICE: March 10, 2018TIME: 12:50 AMPATIENT IDENTITY VERIFICATION COMPLETED USING TWO (2) METHODS: Patientconfirmed name verbally and ID band matches..PATIENT GENDER DATA: Female. status: : NoBreastfeeding status: NO.PATIENT RELEVANT IMPLANT DATA REVIEWED: YesRADIOLOGY DEPARTMENT: General X-ray: Exam(s) Completed: Chest X-RayPERIPHERAL IV DATA: Not applicableSIGNED BY: Mehreen Alves RtOctober 2017 12:50 AM Normal [facility] XR CHEST 2V FRONTAL/LATon XR [...] displaced acute fractures are detected.IMPRESSION:No acute radiographic abnormality.Veterinary Toxicologist ist: PSCB Transcribe Date/Time: Mar 10 2018 1:00ADictated by : VIK BURDICK MDThis examination was interpreted and the report reviewed and electronically signed by: VIK BURDICK MD on Mar 10 2018 1:01AM [id number] [facility] Social History Date Type Detail Facility Start: 10-19-2023 Alcohol intake Ex-drinker (finding) [facility] Start: 05-12-2023 Gender identity Identifies as female gender (finding) [facility] Start: 05-12-2023 Sexual orientation Choose not to disclose [facility] Start: 02-16-2023 Alcohol intake Current drinke r of alcohol (finding) [facility] Start: 02-16-2023 End: 10-19-2023 Alcohol intake [facility] Start: 02-16-2023 End: 10-19-2023 Tobacco use panel [facility] Start: 10-11-2022 End: 10-19-2023 Tobacco smoking status NHIS Never smoked tobacco [facility] Start: 10-11-2022 End: 10-19-2023 Tobacco use and exposure Smokeless tobacco non-user [facility] Start: 1990 Sex Assigned At Female P [facility] How hard is it for y ou to pay for the very basics like food, housing, medical care, and heating Somewhat hard [facility] In the past 12 month s, has lack of transportation kept you from medical appointments or from getting medications? No [facility] NEGATED: Highlighted rowStart: NINF History of tobacco use Passive smoker [facility] Vital Signs Date Time Vital Sign Value Performing Clinician Faci smith 10-19-2023 08:47-0400 Body height 162.6 cm Will [employer] Work Phone: [facility] 10-19-2023 08:47-0400 Body mass index (BMI) [Ratio] 34.33 kg/m2 [employer] Work Phone: [facility] 10-19-2023 08:47-0400 Body weight 90.72 kg Will [employer] Work Phone: [facility] 05-31-2023 15:25-0500 Body height 160 cm Jarod Weeks MD Work Phone: [employer] 05-31-2023 15:25-0500 Body mass index (BMI) [Ratio] 37.74 kg/m2 Jarod Weeks MD Work Phone: [employer] 05-31-2023 15:25-0500 Body weight 96.62 kg Jarod Weeks MD Work Phone: [facility] 05-31-2023 15:25-0500 Diastolic blood pressure 78 mm[Hg] Jarod Weeks MD Work Phone: [employer] 05-31-2023 15:25-0500 Respiratory rate 18 /min Jarod Weeks MD Work Phone: [facility] 05-31-2023 15:25-0500 Systolic blood pressure 124 mm[Hg] Jarod Weeks MD Work Phone: [employer] Progress note 10-19-2023 Note Date & Type Note Facility 10-19-2023 Note HNO ID: [id number] Author: WILL DUPREE, DO Service: ? Author Type: Physician Type: Progress Notes Filed: 10/19/2023 11:02 Note Text: Telemedicine Visit - Distance Health Virtual Visit Note Patient seen on [employer] Video Visit platform. Location of patient: [place] PCP: No primary care provider on file. History of Present Illness Joesph Neff is a 33 year old female who presents for a referral request. - Says her PCP was concerned for EDS and needs an internal referral to a surg tech to be evaluated - Suspect EDS for [...] visit. 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 Scribe Attestation: By signing my name below, Lluvia Valencia, attest that this documentation has been prepared [...] and complete. Electronically Signed: Will Dupree DO. [facility] Progress note 10-19-2023 Note Date & Type Note Facility 10-19-2023 Note HNO ID: [id number] Author: SHITAL ROY RN Service: ? Author Type: Registered Nurse Type: Progress Notes Filed: 10/19/2023 11:02 Note Text: Items addressed in this encounter: Other VV pre check, name and location verified, aware of tele health visit with A Delvis Torres RN October 19, 2023 8:51 AM 8:51 AM [facility] [place] History of Present illness Narrative 10-19-2023 Will Dupree, - 10/19/2023 10:27 AM Shital Valdovinos RN - 10/19/2023 8:51 AM EDT Note Date & Type Note Facility 10-19-2023 History of Presen t illness Narrative Telemedicine Visit - Distance Health Virtual Visit Note Patient seen on [employer] Video Visit platform. Location of patient: [place] PCP: No primary care provider on file. History of Present Illness Joesph Neff is a 33 year old female who presents for a referral request. - Says her PCP was concerned for EDS and needs an internal referral to a surg tech to be evaluated - Suspect EDS for [...] visit. 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 Scribe Attestation: By signing my name below, I, Lluvia Kemp, attest that this documentation has been prepared under the direction and in the presence of Will Dupree D.O. Electronically Signed: Lluvia Ceballosibe. October 19, 2023 10:27 AM. Physician Attestation: I, Will Dupree DO, personally performed the services described in [...] aware of tele health visit with A Delvis Torres RN October 19, 2023 8:51 AM 8:51 AM documented in this encounter [facility] History of Present illness Narrative 05-31-2023 Jarod Weeks MD - 05/31/2023 3:30 PM Ashely Weeks MD - 05/31/2023 3:30 PM EST Note Date & Type Note Facility 05-31-2023 History of Present illness Narrative Images from the original note were not included. 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 Thank you for your understanding. [facility] Dr. Jarod Weeks MD [address], [address] [place] [address] Office: [phone] Rheumatology Procedure Site: Bilateral trochanteric bursa and [...] during the procedure documented in this encounter [facility] Evaluation note Note Date & Type Note Facility Evaluation note Diagnosis Greater trochanteric bursitis of both hips- Primary Fibromyalgia Unspecified myalgia and myositis Vitamin B 12 deficiency Other B-complex deficiencies Anserine bursitis documented in this encounter [facility] Evaluation note Note Date & Type Note Facility Evaluation note Diagnosis Hypermobility of joint- Primary Other joint derangement, not elsewhere classified, unspecified site documented in this encounter [facility] Instructions Note Date & Type Note Facility Instructions Not on filedocumented in this en counter [facility] Summary Purpose Family History No Family History [...] CONSULT TO MEDICAL GENETICS - GENERAL OFFICE/OUTPATIENT [facility] 60 MINUTES MEDICAL GENETICS COUNSELING EACH 30 MINUTES Will Dupree DO [address] [place] [address] [place] [address] Referral ID Status Reason Start Date Expiration Date Visits Requested Visits Authorized [id number] Pending Review PCP Requested Referral Auto-Generate d Referral 10/19/2023 10/18/2024 1 1 Additional Source Comments INFORMATION SOURCE (unrecogn ized section and content) DATE CREATED AUTHOR 04/12/2018 [facility] DATE CREATED AUTHOR AUTHOR'S ORGANIZ ATION 11/26/2021 [facility] DATE CREATED AUTHOR AUTHOR'S ORGANIZ ATION 06/03/[address] [facility] DATE CREATED AUTHOR AUTHOR'S ORGANIZ ATION 09/30/2023 [facility] DATE CREATED AUTHOR AUTHOR'S ORGANIZ ATION 10/21/2023 [facility] DATE CREATED AUTHOR AUTHOR'S AN VILLAGOMEZ 11/04/2023 [facility] Specialists EPIC Care Teams (unrecognized sec tion and content) Innovation Manager Relationship Specialty Start Date End Date Bia Maciel MD [address] [place] [address] PCP - General Family Medicine 09/21/22 Source Comments (unrecognize d section and content) In the event this informatio n is protected by the Federal Confidentiality of Alcohol and Drug Abuse Patient Records regulations: The Federal rules restrict any use of the information to criminally investigate or prosecute any alcohol or drug abuse patient.[facility] Reason for Visit (unrecogniz ed section and content) Reason Comments 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 [employer] provides no warranty or guarantee of the accuracy or completeness of information in this document.
--- NOTE | 2023-11-30 13:35 | P.CN_ITS ---
Consult Note: HPI Data of Consult Patient: known to practice within the last 3 years Requesting Physician: Jaye Sánchez NP Primary Care Provider: Sunny Maciel MD Consult Narrative Reason for consult: establish Narrative: Joesph Pink a pleasant 33 year old female presents for evaluation and management of chronic low back pain and lumbar radiculopathy. Pain started July of 2023 without particular onset. Patient reporting pain 7/10, increasing to 10/10 varying pain. Pain can be throbbing burning aching shoot stabbing throughout low back and legs. Patient following with neurology, rheumatology, and had a NS consult who recommended L5-S1 ESIs. Patient has failed to benefit from OTC tylenol, cannot take NSAIDs with hx of gastric bypass, on lyrica 50mg daily for FM without improvement, robaxin 750mg HS helps her sleep. KALEB 70%. Patient on tramadol with improvement. Utilizes cane. Could not tolerate PT, attended 1 visit then was referred to NS. cc:: CC: Jaye Sánchez NP Review of Systems ROS Status of ROS 10 or more systems reviewed and unremark able except as noted in history and below Musculoskeletal Reports: back pain, neck pain, extremity pain, joint pain, muscle cramps and muscle weakness Meds Home Medications and Allergies Home Medications ?Medication ?Instructions ?Recorded ?Confirmed ?Type dextroamphetamine-amphetamine 30 30 mg PO DAILY 02/25/23 02/25/23 History mg tablet (Adderall) methocarbamol 500 mg tablet 500 mg PO .qhs 02/25/23 02/25/23 History ondansetron 4 mg disintegrating 4 mg PO Q6H PRN nausea and 02/25/23 Rx tablet vomiting #14 tabs pregabalin 165 mg tablet, extended 165 mg PO DAILY 02/25/23 02/25/23 History release 24 hr (Lyrica CR) tamsulosin 0.4 mg capsule (Flomax) 0.4 mg PO DAILY #20 caps 02/25/23 Rx Allergies Allergy/AdvReac Type Severity Reaction Status Date / Time acetaminophen [From Percocet] AdvReac Intermediate Verified 02/25/23 16:49 oxycodone [From Percocet] AdvReac Intermediate Verified 02/25/23 16:49 Exam Narrative Exam Narrative: hyperalgesia noted on exam, diffuse myofascial pain and tenderness Constitutional Documenting provider has reviewed patient's vital signs: yes Common normals: no apparent distress, oriented x3, healthy appearing, alert and well nourished General appearance: cooperative HENMT Common normals: normocephalic, hearing grossly normal bilaterally and moist oral mucous membranes Head and scalp: normocephalic Eye Common normals: PERRL Pupil: PERRL Neck & C-Spine Common normals: full ROM General: normal visual inspection Chest Common normals: inspection of chest normal Respiratory Common normals: normal respiratory effort, no retractions and no use of accessory muscles Back & Pelvis Thoracic spine/upper back: normal to inspection, ROM limited and pain with ROM Lumbar spine/lower back: normal to inspection, ROM limited, pain with ROM, paraspinal muscle tenderness, straight leg raise positive right and straight leg raise positive left Sacroiliac joints: SI joint(s) abnormal Other: bilateral positive maritza(patricks), gaenslens, thigh thrust, compression test decreased sensation to bilateral L3,4,5,S1 pattern strength 3/5 in BLE Extremity Common normals: normal to inspection and full ROM Neuro Common normals: oriented x3, CN's II-XII intact bilaterally, moves all extremities, no focal motor deficits, no sensory deficits noted and deep tendon reflexes 2+ bilaterally Sensorium/orientation: alert Gait (neuro): antalgic and assistive device used cane Motor exam: no movement abnormalities noted and strength abnormal Psych Common normals: mental status grossly normal, thought process normal, cooperative, affect normal, speech normal and activity/motor behavior normal Speech: normal speech Thought process: normal thought process Results Additional Findings Additional findings: If on a controlled substance or opioids, I have checked an [place] report on this patient and there are no aberrancies noted in the prescribing history.??If on a controlled substance or opioid a drug screen was completed and reviewed within the last year, and if there has not been a drug screen completed we ordered one today to monitor higher risk, state monitored pain medication use. As part of providing excellent, safe, comprehensive care, the following was completed at our patient's visit: 1. A medication reconciliation and review to ensure accurate knowledge of current/active medications, including asking our patients to inform us about any [id number] medications or herbal remedies/nutritional supplements/alternative remedies. 2. A review to specifically ensure our patients have had annual screening for screening for depression, screening for tobacco use, and screening for unhealthy alcohol use. For concerning screenings had a discussion with the patient, provided patient education, and recommended follow-up with primary care provider when appropriate. If patient noted with a risk of falling, they received education on strength, gait, and balance training to prevent future risk of falling. Assessment and Plan Assessment and Plan (1) Lumbar radiculopathy: (2) Fibromyalgia: (3) Lumbar stenosis with neurogenic claudication: (4) Myofascial pain: Plan bilateral L5-S1 TFESI under fluoroscopy for lumbar radiculopathy and lumbar bulging disc, risks vs benefits reviewed f/u after lumbar LIV
== END 2023-11-30 13:06 | disposition home or self-care (01) ==
PROVIDERS: PCP Family Medicine; Visit Provider Nurse Practitioner
DX: M54.16 Radiculopathy, lumbar region (principal); M48.062 Spinal stenosis, lumbar region with neurogenic claudication; M79.18 Myalgia, other site
CPT/HCPCS: G0463

== ENCOUNTER 2023-12-26 09:58 | Day surgery (SDC) | payer OTHER, SELFPAY ==
--- OUTSIDE RECORDS SUMMARY | 2023-12-26 10:03 | XMS_ITS | CCD ---
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; Translations: [OTH SALES LEAD CURRENT DRUG THERAPY] Onset: 11-25-2021 Episodic Other [...] disease (2 sources) Encounter for immunization; Translations: [SWIMMING INSTRUCTOR antibody positive] Onset: 11-25-2021 09-21-2022 Episodic Nausea [...] Hou MD on 09/13/2023 9:36 PM Normal [facility] CBC AND AUTO DIFFon 09-10-19 24 ABSOLUTE BASOPHIL 0.1 X10E9/L Normal 0.0-0.2 [facility] Comment on above: Performed By: #### 2 276-4, 2132-9, FEPR, 2284-8, CBCA #### [facility] ([id number]) [address], [address] [place] [address] ABSOLUTE NEUTROPHIL 3.8 X10E9/L Normal 1.5-6.6 [facility] Comment on above: Performed By: #### 2 276-4, 9, FEPR, 2283-12, CBCA #### [facility] ([id number]) [address], [address] [place] [address] Basophils/100 WBC (Bld) 0.9 % Normal [facility] Comment on above: Performed By: #### 2 276-4, 2132-01, FEPR, 2283-12, CBCA #### [facility] ([id number]) [address], [address] [place] [address] Eosinophils (Bld) [#/Vol] 0.1 10*3/uL Normal 0.0-0.4 [facility] Comment on above: Performed By: #### 2 276-4, 2132-01, FEPR, 2283-12, CBCA #### [facility] ([id number]) [address], [address] [place] [address] Eosinophils/100 WBC (Bld) 1.5 % Normal [facility] Comment on above: Performed By: #### 2 276-4, 2132-01, FEPR, 2283-12, CBCA #### [facility] ([id number]) [address], [address] [place] [address] Erythrocyte distribution width (RBC) [Ratio] 13.0 % Normal 11.5-15.0 [facility] Comment on above: Performed By: #### 2 276-4, 2132-01, FEPR, 2283-12, CBCA #### [facility] ([id number]) [address], [address] [place] [address] Hematocrit (Bld) [Volume fraction] 38.3 % Normal 35-47 [facility] Comment on above: Performed By: #### 2 276-4, 9, FEPR, 2283-12, CBCA #### [facility] ([id number]) [address], [address] [place] [address] Hemoglobin (Bld) [Mass/Vol] 13.0 g/dL Normal 11.7-15.5 [facility] Comment on above: Performed By: #### 2 276-4, 2132-01, FEPR, 2283-12, CBCA #### [facility] ([id number]) [address], [address] [place] [address] Lymphocytes (Bld) [#/Vol] 1.5 10*3/uL Normal 1.0-3.5 [facility] Comment on above: Performed By: #### 2 276-4, 9, FEPR, 2283-12, CBCA #### [facility] ([id number]) [address], [address] [place] [address] Lymphocytes/100 WBC (Bld) 25.0 % Normal [facility] Comment on above: Performed By: #### 2 276-4, 2132-01, FEPR, 2283-12, CBCA #### [facility] ([id number]) [address], [address] [place] [address] MCH (RBC) [Entitic mass] 31.4 pg Normal 27-34 [facility] Comment on above: Performed By: #### 2 276-4, 9, FEPR, 2283-12, CBCA #### [facility] ([id number]) [address], [address] [place] [address] MCHC (RBC) [Mass/Vol] 34.1 g/dL Normal 32-36 [facility] Comment on above: Performed By: #### 2 276-4, 9, FEPR, 2283-12, CBCA #### [facility] ([id number]) [address], [address] [place] [address] MCV (RBC) [Entitic vol] 92 fL Normal 80-100 [facility] Comment on above: Performed By: #### 2 276-4, 9, FEPR, 2283-12, CBCA #### [facility] ([id number]) [address], [address] [place] [address] Monocytes (Bld) [#/Vol] 0.5 10*3/uL Normal 0-0.9 [facility] Comment on above: Performed By: #### 2 276-4, 2132-01, FEPR, 2283-12, CBCA #### [facility] ([id number]) [address], [address] [place] [address] Monocytes/100 WBC (Bld) 8.6 % Normal [facility] Comment on above: Performed By: #### 2 276-4, 2132-01, FEPR, 2283-12, CBCA #### [facility] ([id number]) [address], [address] [place] [address] Neutrophils/100 WBC (Bld) 64.0 % Normal [facility] Comment on above: Performed By: #### 2 276-4, 9, FEPR, 2283-12, CBCA #### [facility] ([id number]) [address], [address] [place] [address] Platelet mean volume (Bld) [Entitic vol] 7.6 fL Normal 7-12 [facility] Comment on above: Performed By: #### 2 276-4, 9, FEPR, 2283-12, CBCA #### [facility] ([id number]) [address], [address] [place] [address] Platelets (Bld) [#/Vol] 408 10*3/uL Normal 150-450 [facility] Comment on above: Performed By: #### 2 276-4, 9, FEPR, 228-8, CBCA #### [facility] ([id number]) [address], [facility] [address] [place] [address] RBC COUNT 4.16 X10E12/L Normal 3.80-5.20 [facility] Comment on above: Performed By: #### 2 276-4, 9, FEPR, 2283-8, CBCA #### [facility] ([id number]) [address], [address] [address] WBC (Bld) [#/Vol] 6.0 10*3/uL Normal 4.0-11.0 [facility] Comment on above: Performed By: #### 2 276-4, 9, FEPR, 2283-8, CBCA #### [facility] ([id number]) [address], [address] [address] FERRITINon 09-10-2023 Ferritin [Mass/Vol] 10 ng/mL Low 11-307 [facility] Comment on above: Performed By: #### 2 276-4, 2132-01, FEPR, 2283-8, CBCA #### [facility] ([id number]) [address] [address] Folate [Mass/Vol]on 09-10-19 24 FOLIC ACID 10.9 ng/mL Normal >5.8 [facility] Comment on above: Result Comment: NEW REFERENCE RANGE Performed By: #### 2 276-4, 9, FEPR, 228-8, CBCA #### [facility] ([id number]) [address], [address] [address] IRON PROFILEon 09-10-2023 Iron [Mass/Vol] 92 ug/dL Normal 50-170 [facility] Comment on above: Performed By: #### 2 276-4, 2132-9, FEPR, 2284-8, CBCA #### [facility] ([id number]) [address], [address] [place] [address] IRON BINDING 421 ug/dL Normal 250-425 [facility] Comment on above: Performed By: #### 2 276-4, 2131-9, FEPR, 2284-8, CBCA #### [facility] ([id number]) [address], [address] [place] [address] IRON SATURATION 22 % SATURATION Normal 15-50 [facility] Comment on above: Performed By: #### 2 276-4, 2131-9, FEPR, 2284-8, CBCA #### [facility] ([id number]) [address], [address] [place] [address] VITAMIN B12on 09-10-2023 Cobalamin (Vitamin B12) [Mass/Vol] 195 pg/mL Normal 180-914 [facility] Comment on above: Performed By: #### 2 276-4, 9, FEPR, 2284-8, CBCA #### [facility] ([id number]) [address], [address] [place] [address] [employer]SK ANITBODY TESTon 022 MuSK Antibodies <1.0 Normal [facility] Comment on above: Result Comment: Jun montenegro [...] 2014;52:90-100. 2. Luzmaria DUVAL et al. PNAS 2013;110(04);18725-62809. 3. Baldevi E et al. Neurology 2006;67:505-507. This test was developed and its performance characteristics determined by [employer]. It has not been cleared or approved by the Food and Drug Administration. Performed By: #### M ERIK #### [facility] [address] [place] [address] Dr. Evens Bowden ACETYLCHOLINE RECEPTOR AB WA [facility] 11-10-2021 AChR Binding Abs, Serum <0.03 Normal 0.00-0.24 [facility] [place] Comment on above: Result Comment: Nega tive: 0.00 - 0.24 Borderline: 0.25 - 0.40 Positive: >0.40 Performed By: #### P JULIA MURRAY UMWARRENRO #### [facility] [address] [place] [address] Patria Mis AChR Blocking Abs, Serum 10 % Normal 0-25 [facility] [place] Comment on above: Result Comment: Nega tive: 0 - 25 Borderline: 26 - 30 Positive: >30 Performed By: #### P JULIA MURRAY UMICRO #### [facility] [address] [place], [place] [id number] Patria Mis AChR Modulating Ab CANRGT Normal [facility] Comment on above: Result Comment: Test not performed. Unable to perform test due to current unavailability of reagents or discontinuation of test. Negative: <21 Equivocal: 21 - 25 Positive: >25 Effective March 25, 2021, test [id number] AChR Modulating Abs, Serum was made non-orderable due to an ongoing reagent issue. Specimens are stored frozen and can be referenced to [facility] to provide an AChR Modulating Ab result. Please contact [facility] Customer Service to add on [phone] Acetylcholine Receptor Modulating Antibody, if warranted. Performed By: #### P JULIA MURRAY UMICRO #### [facility] [address] [address] Patria Abebe LYME DISEASE AB EIA W REFLEX on 11-04-2021 Lyme Total Antibody,EIA Negative Normal Negative [facility] [place] Comment on above: Result Comment: Lyme Antibody Negative No laboratory evidence of infection with B. burgdorferi (Lyme disease). Negative results may occur in patients recently infected (greater than or equal to 14 days) with B. burgdorferi. If recent infection is suspected, repeat testing on a new sample collected in 7 to 14 days is recommended. Performed By: #### JULIA GARCIA UMICRO #### [facility] [address] [place] [address] Patria Escobaren AMISHA EIA W/REFLEX 5 BIOMARKER Son 11-03-2021 AMISHA Direct Positive Abnormal Negative [facility] [place] Comment on above: Performed By: #### JULIA GARCIA UMICRO #### [facility] [address] [place] [address] Patria Abebe Anti-DNA (DS) Ab Qn <1 Normal 0-9 [facility] Comment on above: Result Comment: Nega tive <5 Equivocal 5 - 9 Positive >9 Performed By: #### JULIA GARCIA UMICRO #### [facility] [address] [place] [address] Patria Abebe SWIMMING INSTRUCTOR Antibodies 2.4 AI Critically high 0.0-0.9 [facility] Comment on above: Performed By: #### JULIA GARCIA UMICRO #### [facility] [address] [place] [address] Patria Abebe SEE BELOW: Comment Normal [facility] Comment on above: Result Comment: Auto [...] Sm (anti-Hunter) SLE 15 - 30% --------- SWIMMING INSTRUCTOR Mixed Connective Tissue Disease 95% (U1 nRNP, SLE 30 - 50% anti-ribonucleoprotein) Polymyositis and/or Dermatomyositis 20% --------- Scl-70 (antiDNA Scleroderma (diffuse) 20 - 35% topoisomerase) Crest 13% --------- Kristie-1 Polymyositis and/or Dermatomyositis 20 - 40% --------- Centromere B Scleroderma - Crest variant 80% Performed By: #### JULIA GARCIA UMICRO #### [facility] [address] [place] [address] Patria Mis Sjogren's Anti-SS-A <0.2 Normal 0.0-0.9 [facility] Comment on above: Performed By: #### JULIA GARCIA UMICRO #### [facility] [address] [place] [address] Patria Mis Sjogren's Anti-SS-B <0.2 Normal 0.0-0.9 [facility] Comment on above: Performed By: #### JULIA GARCIA UMICRO #### [facility] [address] [place] [address] Patria Mis Hunter Antibodies <0.2 Normal 0.0-0.9 [facility] Comment on above: Performed By: #### JULIA GARCIA UMICRO #### [facility] [address] [place] [address] Patria Mis CMV AB, IGGon 11-03-2021 Cytomegalovirus (CMV) Ab, IgG 5.70 U/mL Critically high 0.00-0.59 [facility] [place] Comment on above: Result Comment: Nega tive <0.60 Equivocal 0.60 - 0.69 Positive >0.69 Performed By: #### JULIA GARCIA UMICRO #### [facility] [address] [place] [address] Patria Abebe SHIRA-MOTA VIRUS (EBV) AB PROFILEon 11-03-2021 EBV Ab VCA, IgG 122.0 U/mL Critically high 0.0-17.9 [facility] [place] Comment on above: Result Comment: Nega tive <18.0 Equivocal 18.0 - 21.9 Positive >21.9 Performed By: #### Hugo VALENCIA #### [facility] [address] [place] [address] Dr. Evens Bowden EBV Ab VCA, IgM <36.0 Normal 0.0-35.9 [facility] Comment on above: Result Comment: Nega tive <36.0 Equivocal 36.0 - 43.9 Positive >43.9 Performed By: #### Hugo VALENCIA #### [facility] [address] [place] [address] Dr. Evens Bowden EBV Nuclear Antigen Ab, IgG 244.0 U/mL Critically high 0.0-17.9 [facility] Comment on above: Result Comment: Nega tive <18.0 Equivocal 18.0 - 21.9 Positive >21.9 Performed By: #### Hugo CORREIAB #### [facility] [address] [place] [address] Dr. Evens Bowden Interpretation: Comment Normal [facility] Comment on above: Result Comment: EBV [...] EBNA. Performed By: #### Hugo VALENCIA #### [facility] [address] [place] [address] Dr. Evens Bowden RHEUMATOID FACTORon 11-04-19 RA Latex Turbid. <10.0 Normal <14.0 [facility] Comment on above: Performed By: #### Hugo VALENCIA #### [facility] [address] [place], [place] [address] Dr. Evens Bowden CPKon 11-02-2021 CK [Catalytic activity/Vol] 150 U/L Normal 26-192 [facility] [place] Comment on above: Performed By: #### C K #### [facility] [address] [place], [place] [address] Dr. Evens Bowden MRI BRAIN WO W [...] SANDRA VERDIN Date: 2021-10-01 13:31 Normal [facility] MRI CSPINE WO W CONon 2021 [...] SANDRA VERDIN Date: 2021-10-01 13:52 Normal [facility] INSULINon 09-11-2021 Insulin 5.2 uIU/mL Normal 2.6-24.9 [facility] Comment on above: Performed By: #### P REGU, ERUR, UMICRO #### [facility] [address] [place] [address] Patria Abebe CBC AUTO DIFFon 09-10-2021 BASO # 0.0 103/ul Normal 0.0-0.1 [facility] [place] Comment on above: Performed By: #### C BC #### [facility] [address] [place] [address] Dr. Evens Bowden Basophils/100 WBC (Bld) 0.7 % Normal 0.2-2.0 [facility] [place] Comment on above: Performed By: #### C BC #### [facility] [address] [place] [address] Dr. Evens Bowden EO # 0.1 103/ul Normal 0.0-0.7 [facility] [place] Comment on above: Performed By: #### C BC #### [facility] [address] [place] [address] Dr. Evens Bowden Eosinophils/100 WBC (Bld) 2.6 % Normal 0.9-7.0 [facility] Comment on above: Performed By: #### C BC #### [facility] [address] [place] [address] Dr. Evens Bowden Erythrocyte distribution width (RBC) [Ratio] 13.7 % Normal 11.0-15.0 [facility] [place] Comment on above: Performed By: #### C BC #### [facility] [address] [place] [address] Dr. Evens Bowden Hematocrit (Bld) [Volume fraction] 33.2 % Critically low 36.0-48.0 [facility] Comment on above: Performed By: #### C BC #### [facility] [address] [address] [address] Evens Bowden Hemoglobin (Bld) [Mass/Vol] 10.4 g/dL Critically low 12.0-16.0 [facility] [place] Comment on above: Performed By: #### C BC #### [facility] [address] [address] [address] Evens Bowden IG # 0.02 10e3/ul Normal 0.00-0.03 [facility] [place] Comment on above: Performed By: #### C BC #### [facility] [address] [place] [address] Dr. Evens Bowden IG % 0.4 % Normal 0.0-0.5 [facility] [place] Comment on above: Performed By: #### C BC #### [facility] [address] [place] [address] Dr. Evens Bowden LYMPH # 2.0 103/ul Normal 1.2-3.8 [facility] [place] Comment on above: Performed By: #### C BC #### [facility] [address] [place] [address] Dr. Evens Bowden Lymphocytes/100 WBC (Bld) 37.7 % Normal 20.5-60.0 [facility] [place] Comment on above: Performed By: #### C BC #### [facility] [address] [place] [address] Dr. Evens Bowden MANUAL DIFF REQ NO Normal [facility] Comment on above: Performed By: #### C BC #### [facility] [address] [place] [address] Dr. Evens Bowden MCH (RBC) [Entitic mass] 27.2 pg Normal 26.7-34.0 [facility] [place] Comment on above: Performed By: #### C BC #### [facility] [address] [place] [address] Dr. Evens Bowden MCHC (RBC) [Mass/Vol] 31.3 g/dL Normal 29.9-35.2 [facility] [place] Comment on above: Performed By: #### C BC #### [facility] [address] [address] [address] Evens Bowden MCV (RBC) [Entitic vol] 86.9 fL Normal 81.0-99.0 [facility] [place] Comment on above: Performed By: #### C BC #### [facility] [address] [address] [address] Evens Bowden MONO # 0.4 103/ul Normal 0.3-0.8 [facility] [place] Comment on above: Performed By: #### C BC #### [facility] [address] [address] [address] Evens Bowden Monocytes/100 WBC (Bld) 7.1 % Normal 1.7-12.0 [facility] [place] Comment on above: Performed By: #### C BC #### [facility] [address] [place] [address] Dr. Evens Bowden NEUT # 2.8 103/ul Normal 1.4-6.5 [facility] [place] Comment on above: Performed By: #### C BC #### [facility] [address] [place] [address] Dr. Evens Bowden Neutrophils/100 WBC (Bld) 51.5 % Normal 43.0-75.0 [facility] [place] Comment on above: Performed By: #### C BC #### [facility] [address] [place] [address] Dr. Evens Bowden Platelet mean volume (Bld) [Entitic vol] 8.6 fL Critically low 9.5-13.5 [facility] Comment on above: Performed By: #### C BC #### [facility] [address] [place] [address] Dr. Evens Bowden PLT 428 103/ul Normal 150-450 [facility] Comment on above: Performed By: #### C BC #### [facility] [address] [address] [address] Evens Bowden RBC 3.82 106/ul Critically low 4.20-5.40 [facility] Comment on above: Performed By: #### C BC #### [facility] [address] [address] [address] Evens Bowden WBC 5.4 103/ul Normal 4.0-11.0 [facility] [place] Comment on above: Performed By: #### C BC #### [facility] [address] [place] [address] Dr. Evens Bowden CRPon 09-10-2021 CRP [Mass/Vol] mg/L Normal <=1.0 [facility] Comment on above: Performed By: #### C BC #### [facility] [address] [address] [address] Evens Bowden FREE THYROXINE INDEX T7on FTI 2.52 Normal [facility] [place] Comment on above: Performed By: #### C BC #### [facility] [address] [place] [address] Dr. Evens Bowden T3U 35.0 % Normal 23.5-40.5 [facility] [place] Comment on above: Performed By: #### C BC #### [facility] [address] [place] [address] Dr. Evens Bowden T4 [Mass/Vol] 7.20 ug/dL Normal 5.53-11.00 [facility] Comment on above: Performed By: #### C BC #### [facility] [address] [place] [address] Dr. Evens Bowden GLYCOHEMOGLOBIN A1Con 2021 ADA RECOMMENDATION ADA THERAPEUTIC TARG ET 6.0 - 7.0 ACTION SUGGESTED > 7.0 Normal [facility] [place] Comment on above: Performed By: #### P JULIA MURRAY UMICRO #### [facility] [address] [address] Patria Mis Glucose [Mass/Vol] 117 mg/dL Normal [facility] Comment on above: Performed By: #### P JULIA MURRAY UMICRO #### [facility] [address] [place] [address] Patria Mis HbA1c (Bld) [Mass fraction] 5.7 % Normal <=6.0 [facility] [place] Comment on above: Performed By: #### P REGU, SHOSHANAR, UMICRO #### [facility] [address] [address] Patria Abebe IRONon 09-10-2021 Iron [Mass/Vol] 46.0 ug/dL Normal 37.0-170.[address] [facility] Comment on above: Performed By: #### I MULUGETA PEARSON #### [facility] [address] [address] [address] Evens Bowden LIPID PROFILEon 09-10-2021 CHOL-HDL RATIO NORM SEE BELOW Normal [facility] Comment on above: Result Comment: 3.3 - 4.4 LOW RISK 4.4 - 7.1 AVERAGE RISK 7.1 - 11.0 MODERATE RISK >11.0 HIGH RISK Performed By: #### C MP, TSH, T7, LIPID, CRP #### [facility] [address] [address] [address] Evens Bowden Cholesterol [Mass/Vol] 130 mg/dL Normal <=200 [facility] [place] Comment on above: Performed By: #### C MP, TSH, T7, LIPID, CRP #### [facility] [address] [address] [address] Evens Bowden Cholesterol in HDL [Mass/Vol] 53 mg/dL Normal 40-60 [facility] [place] Comment on above: Performed By: #### C MP, TSH, T7, LIPID, CRP #### [facility] [address] [address] [address] Evens Bowden Cholesterol in LDL [Mass/Vol] 69.2 mg/dL Normal [facility] [place] Comment on above: Performed By: #### C MP, TSH, T7, LIPID, CRP #### [facility] [address] [address] [address] Evens oBwden Cholesterol.total/C holesterol in HDL [Mass ratio] 2.5 {ratio} Normal [facility] [place] Comment on above: Performed By: #### C MP, TSH, T7, LIPID, CRP #### [facility] [address] [address] [address] Evens Bowden HDL NORMAL > or = 60 mg/dl - LO W CARDIOVASCULAR RISK <40 mg/dl - HIGH CARDIOVASCULAR RISK Normal [facility] [place] Comment on above: Performed By: #### C MP, TSH, T7, LIPID, CRP #### [facility] [address] [address] [address] Evens Bowden LDL CALC NORMAL SEE BELOW Normal [facility] Comment on above: Result Comment: <100 mg/dl OPTIMAL 100 - 129 mg/dl NEAR OR ABOVE OPTIMAL 130 - 159 mg/dl BORDERLINE HIGH 160 - 189 mg/dl HIGH >190 mg/dl VERY HIGH Performed By: #### C MP, TSH, T7, LIPID, CRP #### [facility] [address] [address] [address] Evens Bowden Triglyceride [Mass/Vol] 39 mg/dL Normal <=150 [facility] [place] Comment on above: Performed By: #### C MP, TSH, T7, LIPID, CRP #### [facility] [address] [address] [address] Evens Bowden VLDL CALC 7.8 mg/dL Normal [facility] [place] Comment on above: Performed By: #### C MP, TSH, T7, LIPID, CRP #### [facility] [address] [address] [address] Evens Bowden PROF 14(COMP METB)on 022 Albumin [Mass/Vol] 4.0 g/dL Normal 3.4-5.0 [facility] Comment on above: Performed By: #### C MP, TSH, T7, LIPID, CRP #### [facility] [address] [address] [address] Evens Bowden Albumin/Globulin [Mass ratio] 1.1 {ratio} Normal [facility] [place] Comment on above: Performed By: #### C MP, TSH, T7, LIPID, CRP #### [facility] [address] [address] [address] Evens Bowden ALP [Catalytic activity/Vol] 84 U/L Normal 46-116 [facility] [place] Comment on above: Performed By: #### C MP, TSH, T7, LIPID, CRP #### [facility] [address] [address] [address] Evens Bowden ALT [Catalytic activity/Vol] 33 U/L Normal 14-59 [facility] [place] Comment on above: Performed By: #### C MP, TSH, T7, LIPID, CRP #### [facility] [address] [place] [address] Dr. Evens Bowden Anion gap [Moles/Vol] 12.1 mmol/L Normal [facility] [place] Comment on above: Performed By: #### C MP, TSH, T7, LIPID, CRP #### [facility] [address] [place] [address] Dr. Evens Bowden AST [Catalytic activity/Vol] 18 U/L Normal 15-37 [facility] [place] Comment on above: Performed By: #### C MP, TSH, T7, LIPID, CRP #### [facility] [address] [place] [address] Dr. Evens Bowden Bilirubin [Mass/Vol] 0.5 mg/dL Normal 0.2-1.3 [facility] [place] Comment on above: Performed By: #### C MP, TSH, T7, LIPID, CRP #### [facility] [address] [place] [address] Dr. Evens Bowden Calcium [Mass/Vol] 8.2 mg/dL Critically low 8.5-10.1 [facility] Comment on above: Performed By: #### C MP, TSH, T7, LIPID, CRP #### [facility] [address] [place] [address] Dr. Evens Bowden Chloride [Moles/Vol] 105 mmol/L Normal 98-107 [facility] [place] Comment on above: Performed By: #### C MP, TSH, T7, LIPID, CRP #### [facility] [address] [place] [address] Dr. Evens Bowden CO2 [Moles/Vol] 26.3 mmol/L Normal 22.0-30.0 [facility] Comment on above: Performed By: #### C MP, TSH, T7, LIPID, CRP #### [facility] [address] [place] [address] Dr. Evens Bowden Creatinine [Mass/Vol] 0.62 mg/dL Normal 0.52-1.04 [facility] [place] Comment on above: Performed By: #### C MP, TSH, T7, LIPID, CRP #### [facility] [address] [place] [address] Dr. Evens Bowden EGFR-AF BANGLADESHI >60 Normal >=60 [facility] Comment on above: Performed By: #### C MP, TSH, T7, LIPID, CRP #### [facility] [address] [place] [address] Dr. Evens Bowden EGFR-NON AF BANGLADESHI >60 Normal >=60 [facility] [place] Comment on above: Performed By: #### C MP, TSH, T7, LIPID, CRP #### [facility] [address] [place] [address] Dr. Evens Bowden Globulin (S) [Mass/Vol] 3.5 g/dL Normal [facility] [place] Comment on above: Performed By: #### C MP, TSH, T7, LIPID, CRP #### [facility] [address] [place] [address] Dr. Evens Bowden Glucose [Mass/Vol] 90 mg/dL Normal 74-106 [facility] Comment on above: Performed By: #### C MP, TSH, T7, LIPID, CRP #### [facility] [address] [place] [address] Dr. Evens Bowden Potassium [Moles/Vol] 4.4 mmol/L Normal 3.4-5.0 [facility] [place] Comment on above: Performed By: #### C MP, TSH, T7, LIPID, CRP #### [facility] [address] [place] [address] Dr. Evens Bowden Protein [Mass/Vol] 7.5 g/dL Normal 6.1-8.2 [facility] Comment on above: Performed By: #### C MP, TSH, T7, LIPID, CRP #### [facility] [address] [place] [address] Dr. Evens Bowden Sodium [Moles/Vol] 139 mmol/L Normal 137-145 [facility] Comment on above: Performed By: #### C MP, TSH, T7, LIPID, CRP #### [facility] [address] [place] [address] Dr. Evens Bowden Urea nitrogen [Mass/Vol] 7.0 mg/dL Normal 7.0-18.0 [facility] [place] Comment on above: Performed By: #### C MP, TSH, T7, LIPID, CRP #### [facility] [address] [place] [address] Dr. Evens Bowden Urea nitrogen/Creatinine [Mass ratio] 11.3 mg/mg Normal [facility] [place] Comment on above: Performed By: #### C MP, TSH, T7, LIPID, CRP #### [facility] [address] [place] [address] Dr. Evens Bowden [facility] SED RATE 6 mm/hr Normal <=20 [facility] [place] Comment on above: Performed By: #### M USKAB #### [facility] [address] [place] [address] Dr. Evens Bowden TSHon 09-10-2021 TSH 1.205 uIU/mL Normal 0.470-4.680 [facility] Comment on above: Performed By: #### C BC #### [facility] [address] [place] [address] Dr. Evens Bowden TSH RANGE SEE BELOW Normal [facility] [place] Comment on above: Result Comment: <0.3 4 UIU/ml HYPERTHYROID 0.34-5.60 UIU/ml EUTHYROID >5.60 UIU/ml HYPOTHYROID Performed By: #### C BC #### [facility] [address] [place] [address] Dr. Evens Bowden VITAMIN D 25 OHon 09-10-2021 VIT D 25-OH 11.5 ng/mL Normal [facility] [place] Comment on above: Performed By: #### I MICHEL, VITAD #### [facility] [address] [place] [address] Dr. Evens Bowden VIT D RANGES SEE BELOW Normal [facility] [place] Comment on above: Result Comment: <20 ng/mL Vit D deficient 20 - <30 ng/mL Vit D insufficient 30 - 100 ng/mL Vit D sufficient >100 ng/mL Potential Toxicity Performed By: #### I MICHEL, VITAD #### [facility] [address] [place] [address] Dr. Evens Bowden VITAMIN B1 (THIAMINE)on 02-27 Vit. B1, Whole Blood 85.1 nmol/L Normal 66.5-200.0 [facility] [place] Comment on above: Performed By: #### C BC #### [facility] [address] [place] [address] Dr. Evens Bowden CBC AUTO DIFFon 03-10-2021 BASO # 0.0 103/ul Normal 0.0-0.1 [facility] [place] Comment on above: Performed By: #### Hugo VALENCIA #### [facility] [address] [place] [address] Dr. Evens Bowden Basophils/100 WBC (Bld) 0.8 % Normal 0.2-2.0 [facility] [place] Comment on above: Performed By: #### Hugo VALENCIA #### [facility] [address] [place] [address] Dr. Evens Bowden EO # 0.2 103/ul Normal 0.0-0.7 [facility] [place] Comment on above: Performed By: #### Hugo VALENCIA #### [facility] [address] [place] [address] Dr. Evens Bowden Eosinophils/100 WBC (Bld) 3.4 % Normal 0.9-7.0 [facility] [place] Comment on above: Performed By: #### Hugo VALENCIA #### [facility] [address] [place] [address] Dr. Evens Bowden Erythrocyte distribution width (RBC) [Ratio] 13.2 % Normal 11.0-15.0 [facility] [place] Comment on above: Performed By: #### Hugo VALENCIA #### [facility] [address] [place] [address] Dr. Evens Bowden Hematocrit (Bld) [Volume fraction] 34.2 % Critically low 36.0-48.0 [facility] [place] Comment on above: Performed By: #### Hugo VALENCIA #### [facility] [address] [place] [address] Dr. Evens Bowden Hemoglobin (Bld) [Mass/Vol] 11.2 g/dL Critically low 12.0-16.0 [facility] Comment on above: Performed By: #### M MASOODB #### [facility] [address] [address] [address] Evens Bowden IG # 0.01 10e3/ul Normal 0.00-0.03 [facility] Comment on above: Performed By: #### M MASOODB #### [facility] [address] [address] [address] Evens Bowden IG % 0.2 % Normal 0.0-0.5 [facility] Comment on above: Performed By: #### M MASOODB #### [facility] [address] [place] [address] Dr. Evens Bowden LYMPH # 1.6 103/ul Normal 1.2-3.8 [facility] Comment on above: Performed By: #### M MASOODB #### [facility] [address] [address] [address] Evens Bowden Lymphocytes/100 WBC (Bld) 32.5 % Normal 20.5-60.0 [facility] Comment on above: Performed By: #### M MASOODB #### [facility] [address] [place] [address] Dr. Evens Bowden MANUAL DIFF REQ NO Normal [facility] Comment on above: Performed By: #### M MASOODB #### [facility] [address] [address] [address] Evens Bowden MCH (RBC) [Entitic mass] 30.6 pg Normal 26.7-34.0 [facility] Comment on above: Performed By: #### M MASOODB #### [facility] [address] [address] [address] Evens Bowden MCHC (RBC) [Mass/Vol] 32.7 g/dL Normal 29.9-35.2 [facility] Comment on above: Performed By: #### M MASOODB #### [facility] [address] [address] [address] Evens Bowden MCV (RBC) [Entitic vol] 93.4 fL Normal 81.0-99.0 [facility] Comment on above: Performed By: #### M MASOODB #### [facility] [address] [place] [address] Dr. Evens Bowden MONO # 0.5 103/ul Normal 0.3-0.8 [facility] Comment on above: Performed By: #### M MASOODB #### [facility] [address] [place] [address] Dr. Evens Bowden Monocytes/100 WBC (Bld) 10.7 % Normal 1.7-12.0 [facility] Comment on above: Performed By: #### M MASOODB #### [facility] [address] [place] [address] Dr. Evens Bowden NEUT # 2.6 103/ul Normal 1.4-6.5 [facility] Comment on above: Performed By: #### M MASOODB #### [facility] [address] [place] [address] Dr. Evens Bowden Neutrophils/100 WBC (Bld) 52.4 % Normal 43.0-75.0 [facility] Comment on above: Performed By: #### M MASOODB #### [facility] [address] [place] [address] Dr. Evens Bowden Platelet mean volume (Bld) [Entitic vol] 9.3 fL Critically low 9.5-13.5 [facility] Comment on above: Performed By: #### M KAB #### [facility] [address] [place] [address] Dr. Evens Bowden PLT 373 103/ul Normal 150-450 [facility] Comment on above: Performed By: #### M MASOODB #### [facility] [address] [place] [address] Dr. Evens Bowden RBC 3.66 106/ul Critically low 4.20-5.40 [facility] Comment on above: Performed By: #### M MASOODB #### [facility] [address] [place] [address] Dr. Evens Bowden WBC 5.0 103/ul Normal 4.0-11.0 [facility] Comment on above: Performed By: #### M USKAB #### [facility] [address] [place] [address] Dr. Evens Bowden FOLATEon 03-10-2021 FOLATE 7.50 ng/mL Normal >=2.76 [facility] Comment on above: Performed By: #### P REGJULIA Lang, UMICRO #### [facility] [address] [place] [address] Patria Mis IRON AND TIBCon 03-10-2021 % SATURATION 8.7 % Normal [facility] Comment on above: Performed By: #### P REGUSHOSHANAR, UMICRO #### [facility] [address] [place] [address] Patria Mis Iron [Mass/Vol] 29.0 ug/dL Critically low 37.0-170.0 [facility] Comment on above: Performed By: #### P REGJULIA Lang, UMICRO #### [facility] [address] [place] [address] Patria Mis TIBC DIRECT 332.0 ug/dL Normal 261.0-497.0 [facility] Comment on above: Performed By: #### P REGUSHOSHANAR, UMICRO #### [facility] [address] [place] [address] Patria Mis MAGNESIUMon 03-10-2021 Magnesium [Mass/Vol] 1.7 mg/dL Normal 1.6-2.3 [facility] Comment on above: Performed By: #### C BC #### [facility] [address] [place] [address] Dr. Evens Bowden PHOSPHORUSon 03-10-2021 Phosphate [Mass/Vol] 3.7 mg/dL Normal 2.5-4.5 [facility] Comment on above: Performed By: #### C BC #### [facility] [address] [place] [address] Dr. Evens Bowden PROF 14(COMP METB)on 021 Albumin [Mass/Vol] 3.6 g/dL Normal 3.5-5.0 [facility] Comment on above: Performed By: #### C BC #### [facility] [address] [place] [address] Dr. Evens Bowden Albumin/Globulin [Mass ratio] 1.1 {ratio} Normal [facility] [place] Comment on above: Performed By: #### C BC #### [facility] [address] [place] [address] Dr. Evens Bowden ALP [Catalytic activity/Vol] 91 U/L Normal 38-126 [facility] [place] Comment on above: Performed By: #### C BC #### [facility] [address] [place] [address] Dr. Evens Bowden ALT [Catalytic activity/Vol] 31 U/L Normal 9-52 [facility] [place] Comment on above: Performed By: #### C BC #### [facility] [address] [place] [address] Dr. Evens Bowden Anion gap [Moles/Vol] 12.5 mmol/L Normal [facility] [place] Comment on above: Performed By: #### C BC #### [facility] [address] [place] [address] Dr. Evens Bowden AST [Catalytic activity/Vol] 22 U/L Normal 14-36 [facility] [place] Comment on above: Performed By: #### C BC #### [facility] [address] [place] [address] Dr. Evens Bowden Bilirubin [Mass/Vol] 0.4 mg/dL Normal 0.2-1.3 [facility] [place] Comment on above: Performed By: #### C BC #### [facility] [address] [place] [address] Dr. Evens Bowden Calcium [Mass/Vol] 8.2 mg/dL Critically low 8.4-10.2 [facility] Comment on above: Performed By: #### C BC #### [facility] [address] [place] [address] Dr. Evens Bowden Chloride [Moles/Vol] 106 mmol/L Normal 98-107 [facility] [place] Comment on above: Performed By: #### C BC #### [facility] [address] [place] [address] Dr. Evens Bowden CO2 [Moles/Vol] 26.3 mmol/L Normal 22.0-30.0 [facility] Comment on above: Performed By: #### C BC #### [facility] [address] [place] [address] Dr. Evens Bowden Creatinine [Mass/Vol] 0.57 mg/dL Normal 0.52-1.04 [facility] [place] Comment on above: Performed By: #### C BC #### [facility] [address] [place] [address] Dr. Evens Bowden EGFR-AF BANGLADESHI >60 Normal >=60 [facility] Comment on above: Performed By: #### C BC #### [facility] [address] [place] [address] Dr. Evens Bowden EGFR-NON AF BANGLADESHI >60 Normal >=60 [facility] [place] Comment on above: Performed By: #### C BC #### [facility] [address] [place] [address] Dr. Evens Bowden Globulin (S) [Mass/Vol] 3.4 g/dL Normal [facility] [place] Comment on above: Performed By: #### C BC #### [facility] [address] [place] [address] Dr. Evens Bowden Glucose [Mass/Vol] 92 mg/dL Normal 74-106 [facility] Comment on above: Performed By: #### C BC #### [facility] [address] [place] [address] Dr. Evens Bowden Potassium [Moles/Vol] 3.8 mmol/L Normal 3.4-5.0 [facility] Comment on above: Performed By: #### C BC #### [facility] [address] [place] [address] Dr. Evens Bowden Protein [Mass/Vol] 7.0 g/dL Normal 6.1-8.2 [facility] Comment on above: Performed By: #### C BC #### [facility] [address] [place] [address] Dr. Evens Bowden Sodium [Moles/Vol] 141 mmol/L Normal 137-145 [facility] Comment on above: Performed By: #### C BC #### [facility] [address] [place] [address] Dr. Evens Bowden Urea nitrogen [Mass/Vol] 7.0 mg/dL Normal 7.0-17.0 [facility] Comment on above: Performed By: #### C BC #### [facility] [address] [place] [address] Dr. Evens Bowden Urea nitrogen/Creatinine [Mass ratio] 12.3 mg/mg Normal [facility] [place] Comment on above: Performed By: #### C BC #### [facility] [address] [place] [address] Dr. Evens Bowden VITAMIN B12on 03-10-2021 Cobalamin (Vitamin B12) [Mass/Vol] 211.0 pg/mL Critically low 239.0-931.0 [facility] [place] Comment on above: Performed By: #### P JULIA MURRAY UMWARRENRO #### [facility] [address] [place] [address] Patria Mis VITAMIN D 25 OHon 03-10-2021 VIT D 25-OH 15.8 ng/mL Normal [facility] [place] Comment on above: Performed By: #### JULIA GARCIA UMICRO #### [facility] [address] [place] [address] Patria Mis VIT D RANGES SEE BELOW Normal [facility] [place] Comment on above: Result Comment: <20 ng/mL Vit D deficient 20 - <30 ng/mL Vit D insufficient 30 - 100 ng/mL Vit D sufficient >100 ng/mL Potential Toxicity Performed By: #### P JULIA MURRAY UMICRO #### [facility] [address] [place] [address] Patria Mis VITAMIN D 25 OHon 02-10-2021 VIT D 25-OH 16.7 ng/mL Normal [facility] [place] Comment on above: Performed By: #### Hugo CORREIAB #### [facility] [address] [place] [address] Dr. Evens Bowden VIT D RANGES SEE BELOW Normal [facility] Comment on above: Result Comment: <20 ng/mL Vit D deficient 20 - <30 ng/mL Vit D insufficient 30 - 100 ng/mL Vit D sufficient >100 ng/mL Potential Toxicity Performed By: #### M ERIK #### [facility] [address] [place] [address] Dr. Evens Bowden CBC AUTO DIFFon 01-02-2021 BASO # 0.1 103/ul Normal 0.0-0.1 [facility] [place] Comment on above: Performed By: #### C BC #### [facility] [address] [place] [address] Dr. Evens Bowden Basophils/100 WBC (Bld) 0.5 % Normal 0.2-2.0 [facility] [place] Comment on above: Performed By: #### C BC #### [facility] [address] [place] [address] Dr. Evens Bowden EO # 0.0 103/ul Normal 0.0-0.7 [facility] [place] Comment on above: Performed By: #### C BC #### [facility] [address] [place] [address] Dr. Evens Bowden Eosinophils/100 WBC (Bld) 0.4 % Critically low 0.9-7.0 [facility] [place] Comment on above: Performed By: #### C BC #### [facility] [address] [place] [address] Dr. Evens Bowden Erythrocyte distribution width (RBC) [Ratio] 13.2 % Normal 11.0-15.0 [facility] Comment on above: Performed By: #### C BC #### [facility] [address] [place] [address] Dr. Evens Bowden Hematocrit (Bld) [Volume fraction] 35.3 % Critically low 36.0-48.0 [facility] Comment on above: Performed By: #### C BC #### [facility] [address] [place] [address] Dr. Evens Bowden Hemoglobin (Bld) [Mass/Vol] 11.6 g/dL Critically low 12.0-16.0 [facility] [place] Comment on above: Performed By: #### C BC #### [facility] [address] [place] [address] Dr. Evens Bowden IG # 0.02 10e3/ul Normal 0.00-0.03 [facility] [place] Comment on above: Performed By: #### C BC #### [facility] [address] [place] [address] Dr. Evens Bowden IG % 0.2 % Normal 0.0-0.5 [facility] [place] Comment on above: Performed By: #### C BC #### [facility] [address] [place] [address] Dr. Evens Bowden LYMPH # 1.1 103/ul Critically low 1.2-3.8 [facility] Comment on above: Performed By: #### C BC #### [facility] [address] [place] [address] Dr. Evens Bowden Lymphocytes/100 WBC (Bld) 11.0 % Critically low 20.5-60.0 [facility] Comment on above: Performed By: #### C BC #### [facility] [address] [place] [address] Dr. Evens Bowden MANUAL DIFF REQ NO Normal [facility] Comment on above: Performed By: #### C BC #### [facility] [address] [place] [address] Dr. Evens Bowden MCH (RBC) [Entitic mass] 30.5 pg Normal 26.7-34.0 [facility] Comment on above: Performed By: #### C BC #### [facility] [address] [place] [address] Dr. Evens Bowden MCHC (RBC) [Mass/Vol] 32.9 g/dL Normal 29.9-35.2 [facility] Comment on above: Performed By: #### C BC #### [facility] [address] [place] [address] Dr. Evens Bowden MCV (RBC) [Entitic vol] 92.9 fL Normal 81.0-99.0 [facility] Comment on above: Performed By: #### C BC #### [facility] [address] [place] [address] Dr. Evens Bowden MONO # 0.6 103/ul Normal 0.3-0.8 [facility] Comment on above: Performed By: #### C BC #### [facility] [address] [place] [address] Dr. Evens Bowden Monocytes/100 WBC (Bld) 6.2 % Normal 1.7-12.0 [facility] Comment on above: Performed By: #### C BC #### [facility] [address] [place] [address] Dr. Evens Bowden NEUT # 8.4 103/ul Critically high 1.4-6.5 [facility] Comment on above: Performed By: #### C BC #### [facility] [address] [place] [address] Dr. Evens Bowden Neutrophils/100 WBC (Bld) 81.7 % Critically high 43.0-75.0 [facility] Comment on above: Performed By: #### C BC #### [facility] [address] [place] [address] Dr. Evens Bowden Platelet mean volume (Bld) [Entitic vol] 10.0 fL Normal 9.5-13.5 [facility] Comment on above: Performed By: #### C BC #### [facility] [address] [place] [address] Dr. Evens Bowden PLT 317 103/ul Normal 150-450 [facility] Comment on above: Performed By: #### C BC #### [facility] [address] [place], [place] [id number] Dr. Evens Bowden RBC 3.80 106/ul Critically low 4.20-5.40 [facility] Comment on above: Performed By: #### C BC #### [facility] [address] [place] [address] Dr. Evens Bowden WBC 10.2 103/ul Normal 4.0-11.0 [facility] Comment on above: Performed By: #### C BC #### [facility] [address] ABD/PELVIS WO CONon [...] AUDREY ROWE Date: 2021-01-02 10:13 Normal [facility] CULTURE URINEon 01-02-2021 CULTURE URINE Culture Observations : MODERATE GROWTH OF MIXED GENITAL SHEYLA. NO POTENTIAL PATHOGENS SEEN. Normal [facility] Comment on above: Performed By: #### M USKAB #### [facility] [id number] Evens Bowden ER URINE PROFILEon Bilirubin Ql (U) SMALL Abnormal NEGATIVE [facility] Comment on above: Performed By: #### P REGU, ERUR, UMICRO #### [facility] [address] [address] Patria Mis Clarity (U) SL CLOUDY Abnormal CLEAR [facility] Comment on above: Performed By: #### P JULIA MURRAY UMICRO #### [facility] [address] [address] Patria Mis Color (U) YELLOW Normal YELLOW [facility] Comment on above: Performed By: #### JULIA GARCIA UMICRO #### [facility] [address] [address] Patria Mis ERUAHD A micrscopic examina tion will be performed if indicated. Normal The [facility] Comment on above: Performed By: #### JULIA GARCIA UMICRO #### [facility] [address] [address] Patria Mis Glucose Ql (U) Negative Normal NEGATIVE The [facility] Comment on above: Performed By: #### JULIA GARCIA UMICRO #### [facility] [address] [address] Patria Mis Hemoglobin Ql (U) TRACE-LYSED Abnormal NEGATIVE The [facility] Comment on above: Performed By: #### JULIA GARCIA UMICRO #### [facility] [address] [address] Patria Mis Ketones Ql (U) 40 mg/dl Abnormal NEGATIVE The [facility] Comment on above: Performed By: #### JULIA GARCIA UMICRO #### [facility] [address] [address] Patria Mis LEUKOCYTES Negative Normal NEGATIVE The [facility] Comment on above: Performed By: #### P JULIA MURRAY UMICRO #### [facility] [address] [address] Patria Mis Nitrite Ql (U) Negative Normal NEGATIVE The [facility] Comment on above: Performed By: #### JULIA GARCIA UMICRO #### [facility] [address] [address] Patria Mis pH (U) 6.0 [pH] Normal 5-9 [facility] Comment on above: Performed By: #### JULIA GARCIA UMICRO #### [facility] [address] [place] [address] Patria Abebe SPEC GRAVITY >=1.030 Abnormal 1.005-<=1.025 The [facility] Comment on above: Performed By: #### JULIA GARCIA UMICRO #### [facility] [address] [place] [address] Patria Abebe UA PROTEIN Negative Normal NEGATIVE/ TRACE [facility] Comment on above: Performed By: #### JULIA GARCIA UMICRO #### [facility] [address] [place] [address] Patria Abebe UR MICRO IND INDICATED Normal [facility] [place] Comment on above: Performed By: #### JULIA GARCIA UMICRO #### [facility] [address] [place] [address] Patria Abebe Urobilinogen Qn (U) 4 {Johnnie'U}/dL Abnormal 0.2 - 1.0 [facility] [place] Comment on above: Performed By: #### JULIA GARCIA UMICRO #### [facility] [address] [place] [address] Patria Abebe LIPASEon 01-02-2021 Lipase [Catalytic activity/Vol] 64.0 U/L Normal 23.0-300.0 [facility] Comment on above: Performed By: #### C BC #### [facility] [address] [place] [address] Dr. Evens Bowden URon 01-02-2021 , QUAL Negative Normal NEGATIVE The [facility] Comment on above: Performed By: #### JULIA GARCIA UMICRO #### [facility] [address] [place] [address] Patria Abebe PROF 14(COMP METB)on 021 Albumin [Mass/Vol] 4.2 g/dL Normal 3.5-5.0 [facility] Comment on above: Performed By: #### C BC #### [facility] [address] [place] [address] Dr. Evens Bowden Albumin/Globulin [Mass ratio] 1.1 {ratio} Normal [facility] [place] Comment on above: Performed By: #### C BC #### [facility] [address] [place] [address] Dr. Evens Bowden ALP [Catalytic activity/Vol] 100 U/L Normal 38-126 [facility] Comment on above: Performed By: #### C BC #### [facility] [address] [place] [address] Dr. Evens Bowden ALT [Catalytic activity/Vol] 41 U/L Normal 9-52 [facility] [place] Comment on above: Performed By: #### C BC #### [facility] [address] [place] [address] Dr. Evens Bowden Anion gap [Moles/Vol] 14.4 mmol/L Normal [facility] [place] Comment on above: Performed By: #### C BC #### [facility] [address] [place] [address] Dr. Evens Bowden AST [Catalytic activity/Vol] 30 U/L Normal 14-36 [facility] [place] Comment on above: Performed By: #### C BC #### [facility] [address] [place] [address] Dr. Evens Bowden Bilirubin [Mass/Vol] 0.5 mg/dL Normal 0.2-1.3 [facility] Comment on above: Performed By: #### C BC #### [facility] [address] [place] [address] Dr. Evens Bowden Calcium [Mass/Vol] 9.0 mg/dL Normal 8.4-10.2 [facility] Comment on above: Performed By: #### C BC #### [facility] [address] [place] [address] Dr. Evens Bowden Chloride [Moles/Vol] 106 mmol/L Normal 98-107 [facility] Comment on above: Performed By: #### C BC #### [facility] [address] [address] [address] Evens Bowden CO2 [Moles/Vol] 26.3 mmol/L Normal 22.0-30.0 [facility] Comment on above: Performed By: #### C BC #### [facility] [address] [place] [address] Dr. Evens Bowden Creatinine [Mass/Vol] 0.74 mg/dL Normal 0.52-1.04 [facility] [place] Comment on above: Performed By: #### C BC #### [facility] [address] [place] [address] Dr. Evens Bowden EGFR-AF BANGLADESHI >60 Normal >=60 [facility] Comment on above: Performed By: #### C BC #### [facility] [address] [place] [address] Dr. Evens Bowden EGFR-NON AF BANGLADESHI >60 Normal >=60 [facility] [place] Comment on above: Performed By: #### C BC #### [facility] [address] [place] [address] Dr. Evens Bowden Globulin (S) [Mass/Vol] 3.7 g/dL Normal [facility] [place] Comment on above: Performed By: #### C BC #### [facility] [address] [place] [address] Dr. Evens Bowden Glucose [Mass/Vol] 112 mg/dL Critically high 74-106 [facility] Comment on above: Performed By: #### C BC #### [facility] [address] [place] [address] Dr. Evens Bowden Potassium [Moles/Vol] 3.7 mmol/L Normal 3.4-5.0 [facility] [place] Comment on above: Performed By: #### C BC #### [facility] [address] [place] [address] Dr. Evens Bowden Protein [Mass/Vol] 7.9 g/dL Normal 6.1-8.2 [facility] Comment on above: Performed By: #### C BC #### [facility] [address] [place] [address] Dr. Evens Bowden Sodium [Moles/Vol] 143 mmol/L Normal 137-145 [facility] Comment on above: Performed By: #### C BC #### [facility] [address] [place] [address] Dr. Evens Bowden Urea nitrogen [Mass/Vol] 10.0 mg/dL Normal 7.0-17.0 [facility] [place] Comment on above: Performed By: #### C BC #### [facility] [address] [place] [address] Dr. Evens Bowden Urea nitrogen/Creatinine [Mass ratio] 13.5 mg/mg Normal [facility] [place] Comment on above: Performed By: #### C BC #### [facility] [address] [place] [address] Dr. Evens Bowden URINE MICROSCOPIC ONLYon BACTERIA MODERATE Abnormal NONE SEEN [facility] [place] Comment on above: Performed By: #### P REGU, ERUR, UMICRO #### [facility] [address] [place] [address] Patria Mis Bacteria identified Cx Nom (U) INDICATED Normal [facility] [place] Comment on above: Performed By: #### P REGU, ERUR, UMICRO #### [facility] [address] [place] [address] Patria Mis CAST NONE SEEN Normal NONE SEEN [facility] [place] Comment on above: Performed By: #### P REGU, ERUR, UMICRO #### [facility] [address] [place] [address] Patria Mis Crystals LM Nom (Urine sed) NONE SEEN Normal NONE SEEN [facility] [place] Comment on above: Performed By: #### P REGU, ERUR, UMICRO #### [facility] [address] [place], [place] [id number] Patria Mis Epithelial cells LM Ql (Urine sed) FEW Abnormal NONE SEEN /RARE [facility] Comment on above: Performed By: #### P REGU, ERUR, UMICRO #### [facility] [address] [place] [address] Patria Mis MUCOUS TRACE Abnormal NONE SEEN [facility] Comment on above: Performed By: #### P REGU, ERUR, UMICRO #### [facility] [address] [place], [place] [address] Patria Abebe RBC 0-2 Normal 0-2 [facility] [place] Comment on above: Performed By: #### P JULIA MURRAY UMICRO #### [facility] [address] [place], [place] [address] Patria Abebe WBC 0-2 Abnormal NONE SEEN [facility] Comment on above: Performed By: #### P JULIA MURRAY UMICRO #### [facility] [address] [place], [place] [address] Patria Abebe MRI KNEE RT WO CONon [...] ALISON TONEY Date: 2020-12-08 16:25 Normal [facility] CBC and Differentialon 03-10 Abs Baso 0.03 k/uL Normal <0.11 [facility] Abs [place] 0.81 k/uL Normal <0.87 [facility] Abs Neut 2.94 k/uL Normal 1.45-7.50 [facility] Absolute nRBC <0.01 Normal <0.01 [facility] Basophils/100 WBC Auto (Bld) 0.5 % Normal [facility] DTYPE Auto Diff Normal [facility] Eosinophils Auto #/vol (Bld) 0.27 10*3/uL Normal <0.46 [facility] Eosinophils/100 WBC Auto (Bld) 4.6 % Normal [facility] Erythrocyte distribution width Auto Ratio (RBC) 12.7 % Normal 11.5-15.0 [facility] Hematocrit Auto Volume Fraction (Bld) 36.0 % Normal 36.0-46.0 [facility] Hemoglobin mass conc (Bld) 12.1 g/dL Normal 11.5-15.5 [facility] Lymphocytes Auto #/vol (Bld) 1.88 10*3/uL Normal 1.00-4.00 [facility] Lymphocytes/100 WBC Auto (Bld) 31.7 % Normal [facility] MCH Auto Entitic mass (RBC) 30.6 pG Normal 26.0-34.0 [facility] MCHC Auto mass conc (RBC) 33.6 g/dL Normal 30.5-36.0 [facility] MCV Auto Entitic volume (RBC) 91.1 fL Normal 80.0-100.0 [facility] Monocytes/100 WBC Auto (Bld) 13.7 % Normal [facility] Neutrophils/100 WBC Auto (Bld) 49.5 % Normal [facility] NRBCs 0.0 /100 WBC Normal 0 [facility] Platelet mean volume Auto Entitic volume (Bld) 9.4 fL Normal 9.0-12.7 [facility] Platelets Auto #/vol (Bld) 257 10*3/uL Normal 150-400 [facility] RBC Auto #/vol (Bld) 3.95 10*6/uL Normal 3.90-5.20 [facility] WBC Auto #/vol (Bld) 5.93 10*3/uL Normal 3.70-11.00 [facility] Comp Metabolic Panelon 03-10 Albumin mass conc 3.6 g/dL Low 3.9-4.9 [facility] ALP enzyme act/vol 46 U/L Normal 34-123 [facility] ALT enzyme act/vol 18 U/L Normal 7-38 [facility] Anion gap 3 molar conc 10 mmol/L Normal 9-18 [facility] AST enzyme act/vol Unable to assay. Román hernandez significantly hemolyzed. Normal 13-35 [facility] Bilirubin mass conc 0.2 mg/dL Normal 0.2-1.3 [facility] Calcium mass conc 8.1 mg/dL Low 8.6-10.0 [facility] Chloride molar conc 103 mmol/L Normal 97-105 [facility] CO2 molar conc 27 mmol/L Normal 22-30 [facility] Creatinine mass conc 0.68 mg/dL Normal 0.58-0.96 [facility] eGFR- Amer. >60 Normal [facility] GFR/1.73 sq M predicted among non-blacks MDRD vol rate/area (S/P/Bld) mL/min/{1.73_m2} Normal [facility] Comment on above: Result Comment: eGFR (Estimated [...] Glucose mass conc 105 mg/dL High 74-99 [facility] Comment on above: Result Comment: The [place] Diabetes Association (ADA) provides guidance for cutoff [...] Standards of Medical Care in Diabetes 2016, [place] [employer] Association. Diabetes Care. 2016.39(Suppl 1). Potassium molar conc 4.1 mmol/L Normal 3.7-5.1 [facility] Protein mass conc 6.1 g/dL Low 6.3-8.0 [facility] Sodium molar conc 140 mmol/L Normal 136-144 [facility] Urea nitrogen mass conc 8 mg/dL Normal 7-21 [facility] ED NOTEon 03-10-2018 ED NOTE HNO ID: [id number] thor: Iliana (Rn) Arlen Padilla: (none)Author Type: Registered NurseType: ED NotesFiled: 03/10/2018 3:32 AMNote Text: Discharge instructions per provider, the patient verbalizesunderstanding. No additional questions or concerns at this time. Patient Vital signs stable, no acute distress noted. Patient ambulatory out ofED. [facility] ED NOTE HNO ID: [id number] Author: Gayla CastRn) DUSTIN Hurtado Service: (none) Author Type: Registered Nurse Type: ED Notes Filed: 03/10/2018 2:46 AM Note Text: Clean catch urine specimen obtained and sent. [facility] ED NOTE HNO ID: [id number] Author: Gayla CastRn) DUSTIN Hurtado Service: (none) Author Type: Registered Nurse Type: ED Notes Filed: 03/10/2018 12:36 AM Note Text: Patient transported to [facility] with Tech. [facility] ED NOTE HNO ID: [id number] thor: Felipe (Medic) James Alarcon: (none)Author Type: Roofing Technician and TechnicianType: ED NotesFiled: 03/09/2018 11:50 PMNote [...] ETC. Denies N/V, SOB. No othercomplaints noted. [facility] ED PROV NOTEon 03-10-2018 Protein mass conc HNO ID: [id number] thor: Francis Eagle: (none)Author Type: PhysicianType: ED Provider NotesFiled: 03/10/2018 6:42 AMNote Text:ED Provider NotePatient Name: Joesph NievesRN: [id number] DATE: 03/09/18HistoryPatient presents with:Chest PainPhysical 27-year-old female [...] 10 0321Chest wall painMDM / Disposition / [id number] female comes into the emergency department complaining [...] Normal sinus rhythmRate: 80Axis: Normal axisIntervals: Normal WA intervalQRS Complex: NormalST Segment: Normal ST-T segmentsQT [...] Powellate: 03/10/2018Time: 6:40 AMAaron Pooja03/10/18 0642 Normal [facility] EKGon 03-10-2018 Protein mass conc NAME : MARK CISSE ID : [id number] : 1990 Gender : FemaleRace : CaucasianORD : Procedure Date : Mar 09 2018 23:52:59Edit Date : Mar 10 2018 05:16:28 Diagnosis:Normal sinus rhythmNormal ECGNo previous ECGs availableConfirmed by DO SILVA AARON ([id number]), editor trade journal DEIRDRE ELIZONDO ([id number]) on 03/10/2018 5:16:22 AM Ventricular Rate : 80 BPMAtrial Rate : 80 BPMP-R Interval : 166 msQRS Duration : 92 msQ-T Interval : 394 msQTC Calculation(Bezet) : 454 msP [place] : 25 degreesR [place] : 19 degreesT [place] : 29 degrees Test Reason : Location : 302 : ED ED Overread By : DO SILVA AARONEdited By : Vitor ELIZONDOerred By : ,Acquired by : , Normal [facility] High Sens Troponin Ton 03-10 High Sensitivity RONAK <6 Normal <12 [facility] Comment on above: Result Comment: When assessing [...] MACE. High Sensitivity RONAK <6 Normal <12 [facility] Comment on above: Result Comment: When assessing [...] Lipase enzyme act/vol 26 U/L Normal 16-61 [facility] PROGRESSon 03-10-2018 Protein mass conc HNO ID: [id number] thor: Mehreen Alves RtService: (none)Author Type: (none)Type: Progress NotesFiled: 03/10/2018 12:51 AMNote Text: Radiology Service Progress NotePATIENT NAME: Joesph NievesRN: [id number] OF SERVICE: March 10, 2018TIME: 12:50 AMPATIENT IDENTITY VERIFICATION COMPLETED USING TWO (2) METHODS: Patientconfirmed name verbally and ID band matches..PATIENT GENDER DATA: Female. status: : NoBreastfeeding status: NO.PATIENT RELEVANT IMPLANT DATA REVIEWED: YesRADIOLOGY DEPARTMENT: General X-ray: Exam(s) Completed: Chest X-RayPERIPHERAL IV DATA: Not applicableSIGNED BY: Mehreen Alves RtOct2017 12:50 AM Normal [facility] XR CHEST 2V FRONTAL/LATon XR CHEST 2V [...] displaced acute fractures are detected.IMPRESSION:No acute radiographic abnormality.Cotton Stripper ist: PSCB Transcribe Date/Time: Mar 10 2018 1:00ADictated by : VIK BURDICK MDThis examination was interpreted and the report reviewed and electronically signed by: VIK BURDICK MD on Mar 10 2018 1:01AM [id number] Normal [facility] Vital Signs Date Time Vital Sign Value Performing Clinician Ranjit mtz 10-19-2023 08:47-0400 Body height 162.6 cm [facility] Work Phone: [facility] 10-19-2023 08:47-0400 Body mass index (BMI) [Ratio] 34.33 kg/m2 Will [employer] Work Phone: [facility] 10-19-2023 08:47-0400 Body weight 90.72 kg [place] [employer] Work Phone: [facility] 05-31-2023 15:25-0500 Body height 160 cm Jarod Weeks MD Work Phone: [facility] [employer] [facility] 05-31-2023 15:25-0500 Body mass index (BMI) [Ratio] 37.74 kg/m2 Jraod Weeks MD Work Phone: [facility] [employer] [facility] 05-31-2023 15:25-0500 Body weight 96.62 kg Jarod Weeks MD Work Phone: [facility] 05-31-2023 15:25-0500 Diastolic blood pressure 78 mm[Hg] Jarod Weeks MD Work Phone: [facility] 05-31-2023 15:25-0500 Respiratory rate 18 /min Jarod Weeks MD Work Phone: [facility] 05-31-2023 15:25-0500 Systolic blood pressure 124 mm[Hg] Jarod Weeks MD Work Phone: [facility] Encounters Encounter Date Encounter Type Care Provider Facility Start: 11-03-2023 End: 11-03-2023 ambulatory DEIRDRE CHAVEZ Not Available Start: 10-19-2023 End: 10-19-2023 ambulatory WILL Gold LEIA Facility:[facility] Start: 10-19-2023 End: 10-19-2023 ambulatory Will Gold Leia DO Work Phone: [facility] Comment on above: Hypermobility of lillie nt (Primary Dx) Start: 10-19-2023 End: 10-19-2023 Telemedicine consultation with patient Will Dupree DO Work Phone: [facility] Start: 09-28-2023 End: 09-28-2023 ambulatory [facility] Start: 09-26-2023 End: 09-26-2023 ambulatory [facility] Start: 09-23-2023 End: 09-23-2023 ambulatory [facility] Start: 09-21-2023 End: 09-21-2023 ambulatory [facility] Start: 09-19-2023 End: 09-19-2023 [facility] Start: 09-10-2023 End: 09-11-2023 ambulatory BIA MACIEL [facility] Start: 09-08-2023 End: 09-09-2023 [facility] Start: 05-31-2023 End: 05-31-2023 ambulatory JAROD WEEKS [facility] Start: 05-31-2023 End: 05-31-2023 Office outpatient visit 25 minutes Jarod Weeks MD Work Phone: [facility] Comment on above: Greater [...] 03-10-2018 Emergency department patient visit [facility] Plan of Treatment Date Care Activity Detail Author Start: 11-24-2031 DTaP,Tdap and Td Vaccines (2 - Tdap) DTaP,Tdap and Td Vaccines (2 - Tdap) [facility] Start: 11-24-2031 Urine microalbumin profile DTaP,Tdap,Td Vaccine (2 - Tdap) [facility] Start: 05-31-2024 Adult BMI Screening Adult BMI Screening [facility] [employer] Start: 02-17-2024 Tobacco Screening Tobacco Screening [facility] [employer] Start: 01-29-2024 Influenza vaccination Influenza Vaccine (Season Ended) [facility] Start: 09-08-2023 End: 09-08-2023 Patient encounter procedure 09/08/2023 11:30 AM EDT Office Visit [facility] [address] [place] [address] Jarod Weeks MD [address] [address] [facility] Start: 05-30-2023 Behavioral Health Screening Behavioral Health Screening [facility] Start: 01-28-2023 COVID-19 Vaccine () COVID-19 Vaccine () [facility] [employer] [facility] Start: 01-28-2023 Influenza vaccination Influenza Vaccine [facility] Start: 2022 Screening for malignant neoplasm of cervix HPV Testing [facility] Start: 2013 Screening for malignant neoplasm of cervix [facility] Start: 2011 Hepatitis B Vaccine (1 of 3 - 19+ 3-dose series) Hepatitis B Vaccine (1 of 3 - 19+ 3-dose series) [facility] Start: 2010 Adult BMI Follow Up Plan Adult BMI Follow Up Plan [facility] Start: 2010 Hepatitis C screening Hepatitis C Screening [facility] Start: 2010 HIV screening HIV Screening [facility] Start: 2004 Depression Screening Depression Screening [facility] Payers Date Payer Category Payer Unknown [id number] 2022 Private Health Insurance [id number] 2022 Private Health Insurance [id number] 1990 Unknown [id number] 2.16.84 [id number] 1990 Unknown [id number] 2.16.84 [id number] 1990 Unknown [id number] 2.16.84 0.1.102012.3.579.2.593 1990 Unknown [id number] 2.16.84 0.1.472248.3.579.2.593 1990 Unknown [id number] 2.16.84 0.1.883759.3.579.2.593 1992 Unknown [id number] 2.16.84 0.1.993762.3.579.2.593 1992 Unknown [id number] 2.16.84 0.1.704821.3.579.2.593 1992 Unknown [id number] 2.16.84 0.1.492036.3.579.2.593 1992 Unknown [id number] 2.16.84 0.1.154416.3.579.2.593 1992 Unknown [id number] 2.16.84 0.1.073897.3.579.2.1286 1992 Unknown [id number] 2.16.8 40.1.697256.3.579.2.1285 1992 Unknown [id number] 2.16.8 40.1.635872.3.579.2.1285 1992 Unknown [id number] 2.16.8 40.1.886030.3.579.2.1285 1992 Unknown [id number] 2.16.8 40.1.523602.3.579.2.1285 1992 Unknown [id number] 2.16.8 40.1.028006.3.579.2.1285 1992 Unknown [id number] 2.16.8 40.1.089188.3.579.2.128 1992 Unknown [id number] 2.16.8 40.1.116522.3.579.2.1285 1992 Unknown [id number] 2.16.8 40.1.870661.3.579.2.1285 1992 Unknown [id number] 2.16.84 0.1.277466.3.579.2.9 1959 Unknown [id number] Social History Date Type Detail Facility Start: 10-11-2022 End: 10-19-2023 Tobacco smoking status NHIS Never smoked tobacco [facility] Start: 10-11-2022 End: 10-19-2023 Tobacco use and exposure Smokeless tobacco non-user [facility] Start: 02-16-2023 Alcohol intake Current drinke r of alcohol (finding) [facility] Start: 02-16-2023 End: 10-19-2023 Alcohol intake [facility] Start: 02-16-2023 End: 10-19-2023 Tobacco use panel [facility] How hard is it for y ou to pay for the very basics like food, housing, medical care, and heating Somewhat hard [facility] In the past 12 month s, has lack of transportation kept you from medical appointments or from getting medications? No [facility] Start: 1990 Sex Assigned At Female P [facility] Start: 05-12-2023 Gender identity Identifies as female gender (finding) [facility] Start: 05-12-2023 Sexual orientation Choose not to disclose [facility] Start: 10-19-2023 Alcohol intake Ex-drinker (finding) [facility] NEGATED: Highlighted rowStart: WENDY History of tobacco use Passive smoker [facility] Medical Equipment Procedure Code Equipment Code Equipment Origin al Text Equipment Identifier Dates Use to inject Vi t B 12 intramuscular [id number] Start: 05-31-2023 Use to inject Vi t B 12 intramuscular [id number] Start: 09-21-2022 End: 05-31-2023 Progress note 10-19-2023 Note Date & Type Note Facility 10-19-2023 Note HNO ID: [id number] Author: WILL DUPREE, DO Service: ? Author Type: Physician Type: Progress Notes Filed: 10/19/2023 11:02 Note Text: Telemedicine Visit - Distance Health Virtual Visit Note Patient seen on [employer] Video Visit platform. Location of patient: [place] PCP: No primary care provider on file. History of Present Illness Joesph Neff is a 33 year old female who presents for a referral request. - Says her PCP was concerned for EDS and needs an internal referral to a linen room custodian to be evaluated - Suspect EDS for [...] visit. Either the patient or their legal tax compliance representative has been informed of the risks [...] and complete. Electronically Signed: Will Dupree DO. [facility] Progress note 10-19-2023 Note Date & Type Note Facility 10-19-2023 Note HNO ID: [id number] Author: SHITAL ROY RN Service: ? Author Type: Registered Nurse Type: Progress Notes Filed: 10/19/2023 11:02 Note Text: Items addressed in this encounter: Other VV pre check, name and location verified, aware of tele health visit with A Leia Torres RN October 19, 2023 8:51 AM 8:51 AM [facility] History of Present illness Narrative 10-19-2023 Will Dupree, - 10/19/2023 10:27 AM Shital Valdovinos RN - 10/19/2023 8:51 AM EDT Note Date & Type Note Facility 10-19-2023 History of Presen t illness Narrative Telemedicine Visit - Distance Health Virtual Visit Note Patient seen on [employer] Video Visit platform. Location of patient: [place] PCP: No primary care provider on file. History of Present Illness Joesph Neff is a 33 year old female who presents for a referral request. - Says her PCP was concerned for EDS and needs an internal referral to a linen room custodian to be evaluated - Suspect EDS for [...] visit. Either the patient or their legal tax compliance representative has been informed of the risks [...] AM 8:51 AM documented in this encounter [facility] History of Present illness Narrative 05-31-2023 Jarod Weeks MD - 05/31/2023 3:30 PM Ashely Weeks MD - 05/31/2023 3:30 PM EST Note Date & Type Note Facility 05-31-2023 History of Present illness Narrative Images from the original note were not included. [id number] [id number] Date of Service: 05/31/2023 Subjective: Joesph Neff [...] 08/23/2022 AMISHA IFA negative, complements normal, anti SWIMMING INSTRUCTOR 1.7 AI, vitamin-D 11.9 ng/mL normal, urinalysis [...] or corrected. Thank you for your understanding. [facility]. Jarod Weeks MD [address] [place] [address], [address] [place] [address] Office: [phone] Rheumatology Procedure Site: Bilateral trochanteric bursa and [...] during the procedure documented in this encounter [facility] Evaluation note Note Date & Type Note Facility Evaluation note Diagnosis Greater trochanteric bursitis of both hips- Primary Fibromyalgia Unspecified myalgia and myositis Vitamin B 12 deficiency Other B-complex deficiencies Anserine bursitis documented in this encounter [facility] Evaluation note Note Date & Type Note Facility Evaluation note Diagnosis Hypermobility of joint- Primary Other joint derangement, not elsewhere classified, unspecified site documented in this encounter [facility] Instructions Note Date & Type Note Facility Instructions Not on filedocumented in this en counter [facility] [employer] Summary Purpose Family History No Family History [...] CONSULT TO MEDICAL GENETICS - GENERAL OFFICE/OUTPATIENT [facility] 60 MINUTES MEDICAL GENETICS COUNSELING EACH 30 MINUTES Will Dupree DO [address] [place] [address] Outline App Medicine [facility] [place] [address] Referral ID Status Reason Start Date Expiration Date Visits Requested Visits Authorized [id number] Pending Review PCP Requested Referral Auto-Generate d Referral 10/19/2023 10/18/2024 1 1 Additional Source Comments INFORMATION SOURCE (unrecogn ized section and content) DATE CREATED AUTHOR 04/12/2018 [facility] DATE CREATED AUTHOR AUTHOR'S ORGANIZ ATION 11/26/2021 [facility] DATE CREATED AUTHOR AUTHOR'S ORGANIZ ATION 06/03/2023 [facility] DATE CREATED AUTHOR AUTHOR'S ORGANIZ ATION 09/30/2023 [facility] DATE CREATED AUTHOR AUTHOR'S ORGANIZ ATION 10/21/2023 [facility] DATE CREATED AUTHOR AUTHOR'S ORGANIZ ATION 11/04/[address] [facility] dical Specialists [employer] Care Teams (unrecognized sec tion and content) Electrical Prospecting Engineer Relationship Specialty Start Date End Date Bia Maciel MD [id number] [phone] PCP - General Family Medicine 09/21/22 Source Comments (unrecognize d section and content) In the event this informatio n is protected by the Federal Confidentiality of Alcohol and Drug Abuse Patient Records regulations: The Federal rules restrict any use of the information to criminally investigate or prosecute any alcohol or drug abuse patient.[facility] Reason for Visit (unrecogniz ed section and content) Reason Comments Referral Request Cryptologic Support Specialist FOR RECORDS PERTAINING TO PATIENTS WHO ARE [...] BE BASED ON THE PRIMARY CLINICAL RECORDS. [employer] [facility]. provides no warranty or guarantee of the accuracy or completeness of information in this document.
[2023-12-26 10:37] LABS: HCG Qualitative NEGATIVE (NEGATIVE); Internal Control Within Normal Limits
[2023-12-26 10:44] VITALS: BP 124/80; PULSE 78; TEMP 36.6; O2SAT 97
[2023-12-26 11:24] VITALS: BP 124/62; PULSE 78; O2SAT 93
[2023-12-26] MEDS: 0.9 % SODIUM CHLORIDE 10 ML SYRINGE - SALINE FLUSH INJ (11:27)
[2023-12-26] MEDS: BUPIVACAINE HCL 0.25% PF 25 MG/10 ML VIAL INJ (11:27)
[2023-12-26] MEDS: TRIAMCINOLONE ACETONIDE 40 MG/ML VIAL 80 MG INJ (11:28)
[2023-12-26] MEDS: IOHEXOL 240 MG/ML - 10 ML VIAL 24 MG INJ (11:28)
[2023-12-26] MEDS: LIDOCAINE HCL 2% 400 MG/20 ML MDV 4 ML INJ (11:28)
[2023-12-26 11:29] VITALS: BP 123/62; PULSE 69; O2SAT 97
--- NOTE | 2023-12-26 11:30 | W.PM.PROCNOT ---
Date of procedure: 12/26/23 Pre-op diagnosis: Pain due to lumbar stenosis with neurogenic claudication Post-op diagnosis: same as pre-op Procedure: Procedure: Bilateral L5-S1 transforaminal epidural steroid injection Medications: Bupivacaine 0.25% 2cc, lidocaine 2% 1cc, kenalog 80mg The patient was seen and examined in the preoperative holding area.? Informed consent was obtained and placed on the chart.? Patient was brought to the medical procedure unit and placed in the prone position where a timeout was completed verifying the correct patient, procedure site, position, and planned special equipment using sterile aseptic technique.? Under direct fluoroscopic visualization a 25-gauge Quincke tipped spinal needle was advanced at level left L5-S1 to the designated neural foramen where contrast dye was injected to show adequate spread.? There was no evidence of vascular or adverse uptake.? Epidural spread was appreciated.? The above-mentioned injectate was then placed in a 1.5 mL aliquot preceded by negative aspiration.? The needle was removed. The same procedure, at the same level, was completed on the opposite side. ? Patient was taken to the postprocedural recovery area and monitored for an appropriate length of time before found suitable for discharge in the accompaniment of a responsible adult. Anesthesia: Local Surgeon: Jefferson York Pathology: none sent Condition: stable Disposition: no change
== END 2023-12-26 11:34 | disposition home or self-care (01) ==
LOC: SURGOUT 09:59
PROVIDERS: PCP Family Medicine; Visit Provider Anesthesiology
DX: M48.062 Spinal stenosis, lumbar region with neurogenic claudication (principal)
CPT/HCPCS: 36415; 64483; 84703; J0665; J3301; Q9966

== ENCOUNTER 2024-01-02 13:45 | Outpatient (OUT) | payer OTHER, SELFPAY ==
--- OUTSIDE RECORDS SUMMARY | 2024-01-02 14:04 | XMS_ITS | CCD ---
Author Organization [facility] Care Team Providers Care Medical Claims Assistant Name Role Phone FRANCIS SILVA Unavailable Unavailable [...] Unavailable Bia Maciel MD Primary Care Provider [phone] JAROD WEEKS Attending Unavailable BIA MACIEL [...] oxyCODONE; Translations: [OXYCODONE-ACETAM INOPHEN] Drug Allergy 8 [facility] Repository (1 source) Acetaminophen / oxyCODONE Drug Allergy 5 [facility] Repository (3 sources) oxyCODONE; Translations: [OXYCODONE HCL] Drug Allergy 2 Itching, GI Disturbance [facility] Medications Current Medications Medication Drug [...] the morning. 90 tablet 3 11/02/2022 Active [id number] 0.3 ml EPINEPHrine 1 mg/ml auto-injector (1 [...] 11-23-2021 Episodic Other aftercare (1 source) Other fdc (current) drug therapy; Translations: [[employer] CURRENT DRUG THERAPY] Onset: 11-25-2021 Episodic Other [...] disease (2 sources) Encounter for immunization; Translations: [WINDER HAND antibody positive] Onset: 11-25-2021 09-21-2022 Episodic Nausea [...] Hou MD on 09/13/2023 9:36 PM Normal [facility] CBC AND AUTO DIFFon 09-10-19 24 ABSOLUTE BASOPHIL 0.1 X10E9/L Normal 0.0-0.2 [facility] Comment on above: Performed By: #### 2 276-4, 2132-9, FEPR, 2284-8, CBCA #### [facility] ([id number]) [address], [address] [place] [address] ABSOLUTE NEUTROPHIL 3.8 X10E9/L Normal 1.5-6.6 [facility] Comment on above: Performed By: #### 2 276-4, 9, FEPR, 2283-12, CBCA #### [facility] ([id number]) [address], [address] [place] [address] Basophils/100 WBC (Bld) 0.9 % Normal [facility] Comment on above: Performed By: #### 2 276-4, 2132-01, FEPR, 2283-12, CBCA #### [facility] ([id number]) [address], [address] [place] [address] Eosinophils (Bld) [#/Vol] 0.1 10*3/uL Normal 0.0-0.4 [facility] Comment on above: Performed By: #### 2 276-4, 2132-01, FEPR, 2283-12, CBCA #### [facility] ([id number]) [address], [address] [place] [address] Eosinophils/100 WBC (Bld) 1.5 % Normal [facility] Comment on above: Performed By: #### 2 276-4, 2132-01, FEPR, 2283-12, CBCA #### [facility] ([id number]) [address], [address] [place] [address] Erythrocyte distribution width (RBC) [Ratio] 13.0 % Normal 11.5-15.0 [facility] Comment on above: Performed By: #### 2 276-4, 2132-01, FEPR, 2283-12, CBCA #### [facility] ([id number]) [address], [address] [place] [address] Hematocrit (Bld) [Volume fraction] 38.3 % Normal 35-47 [facility] Comment on above: Performed By: #### 2 276-4, 9, FEPR, 2283-12, CBCA #### [facility] ([id number]) [address], [address] [place] [address] Hemoglobin (Bld) [Mass/Vol] 13.0 g/dL Normal 11.7-15.5 [facility] Comment on above: Performed By: #### 2 276-4, 2132-01, FEPR, 2283-12, CBCA #### [facility] ([id number]) [address], [address] [place] [address] Lymphocytes (Bld) [#/Vol] 1.5 10*3/uL Normal 1.0-3.5 [facility] Comment on above: Performed By: #### 2 276-4, 9, FEPR, 2283-12, CBCA #### [facility] ([id number]) [address], [address] [place] [address] Lymphocytes/100 WBC (Bld) 25.0 % Normal [facility] Comment on above: Performed By: #### 2 276-4, 2132-01, FEPR, 2283-12, CBCA #### [facility] ([id number]) [address], [address] [place] [address] MCH (RBC) [Entitic mass] 31.4 pg Normal 27-34 [facility] Comment on above: Performed By: #### 2 276-4, 9, FEPR, 2283-12, CBCA #### [facility] ([id number]) [address], [address] [place] [address] MCHC (RBC) [Mass/Vol] 34.1 g/dL Normal 32-36 [facility] Comment on above: Performed By: #### 2 276-4, 9, FEPR, 2283-12, CBCA #### [facility] ([id number]) [address], [address] [place] [address] MCV (RBC) [Entitic vol] 92 fL Normal 80-100 [facility] Comment on above: Performed By: #### 2 276-4, 9, FEPR, 2283-12, CBCA #### [facility] ([id number]) [address], [address] [place] [address] Monocytes (Bld) [#/Vol] 0.5 10*3/uL Normal 0-0.9 [facility] Comment on above: Performed By: #### 2 276-4, 2132-01, FEPR, 2283-12, CBCA #### [facility] ([id number]) [address], [address] [place] [address] Monocytes/100 WBC (Bld) 8.6 % Normal [facility] Comment on above: Performed By: #### 2 276-4, 2132-01, FEPR, 2283-12, CBCA #### [facility] ([id number]) [address], [address] [place] [address] Neutrophils/100 WBC (Bld) 64.0 % Normal [facility] Comment on above: Performed By: #### 2 276-4, 9, FEPR, 2283-12, CBCA #### [facility] ([id number]) [address], [address] [place] [address] Platelet mean volume (Bld) [Entitic vol] 7.6 fL Normal 7-12 [facility] Comment on above: Performed By: #### 2 276-4, 9, FEPR, 2283-12, CBCA #### [facility] ([id number]) [address], [address] [place] [address] Platelets (Bld) [#/Vol] 408 10*3/uL Normal 150-450 [facility] Comment on above: Performed By: #### 2 276-4, 9, FEPR, 228-8, CBCA #### [facility] ([id number]) [address], [facility] [address] [place] [address] RBC COUNT 4.16 X10E12/L Normal 3.80-5.20 [facility] Comment on above: Performed By: #### 2 276-4, 9, FEPR, 2283-8, CBCA #### [facility] ([id number]) [address], [address] [address] WBC (Bld) [#/Vol] 6.0 10*3/uL Normal 4.0-11.0 [facility] Comment on above: Performed By: #### 2 276-4, 9, FEPR, 2283-8, CBCA #### [facility] ([id number]) [address], [address] [address] FERRITINon 09-10-2023 Ferritin [Mass/Vol] 10 ng/mL Low 11-307 [facility] Comment on above: Performed By: #### 2 276-4, 2132-01, FEPR, 2283-8, CBCA #### [facility] ([id number]) [address] [address] Folate [Mass/Vol]on 09-10-19 24 FOLIC ACID 10.9 ng/mL Normal >5.8 [facility] Comment on above: Result Comment: NEW REFERENCE RANGE Performed By: #### 2 276-4, 9, FEPR, 228-8, CBCA #### [facility] ([id number]) [address], [address] [address] IRON PROFILEon 09-10-2023 Iron [Mass/Vol] 92 ug/dL Normal 50-170 [facility] Comment on above: Performed By: #### 2 276-4, 2132-9, FEPR, 2284-8, CBCA #### [facility] ([id number]) [address], [address] [place] [address] IRON BINDING 421 ug/dL Normal 250-425 [facility] Comment on above: Performed By: #### 2 276-4, 2131-9, FEPR, 2284-8, CBCA #### [facility] ([id number]) [address], [address] [place] [address] IRON SATURATION 22 % SATURATION Normal 15-50 [facility] Comment on above: Performed By: #### 2 276-4, 2131-9, FEPR, 2284-8, CBCA #### [facility] ([id number]) [address], [address] [place] [address] VITAMIN B12on 09-10-2023 Cobalamin (Vitamin B12) [Mass/Vol] 195 pg/mL Normal 180-914 [facility] Comment on above: Performed By: #### 2 276-4, 9, FEPR, 2284-8, CBCA #### [facility] ([id number]) [address], [address] [place] [address] [employer] ANITBODY TESTon 022 MuSK Antibodies <1.0 Normal [facility] Comment on above: Result Comment: Jun [...] 2014;52:90-100. 2. Luzmaria DUVAL et al. PNAS 2013;110(71);[id number]. 3. Baldevi E et al. Neurology 2006;67:505-507. This test was developed and its performance characteristics determined by [employer]. It has not been cleared or approved by the Food and Drug Administration. Performed By: #### M ERIK #### [facility] [address] [place] [address] Dr. Evens Bowden ACETYLCHOLINE RECEPTOR AB [facility] 11-10-2021 AChR Binding Abs, Serum <0.03 Normal 0.00-0.24 [facility] Comment on above: Result Comment: Nega tive: 0.00 - 0.24 Borderline: 0.25 - 0.40 Positive: >0.40 Performed By: #### P JULIA MURRAY UMWARRENRO #### [facility] [address] [place] [address] Patria Mis AChR Blocking Abs, Serum 10 % Normal 0-25 [facility] Comment on above: Result Comment: Nega tive: 0 - 25 Borderline: 26 - 30 Positive: >30 Performed By: #### P JULIA MURRAY UMICRO #### [facility] [address] [place], [place] [address] Patria Mis AChR Modulating Ab CANRGT Normal [facility] Comment on above: Result Comment: Test not performed. Unable to perform test due to current unavailability of reagents or discontinuation of test. Negative: <21 Equivocal: 21 - 25 Positive: >25 Effective March 25, 2021, test 502208 AChR Modulating Abs, Serum was made non-orderable due to an ongoing reagent issue. Specimens are stored frozen and can be referenced to [facility] to provide an AChR Modulating Ab result. Please contact [facility] Customer Service to add on [phone] Acetylcholine Receptor Modulating Antibody, if warranted. Performed By: #### P JULIA MURRAY UMICRO #### [facility] [address] [address] Patria Abebe LYME DISEASE AB EIA W REFLEX on 11-04-2021 Lyme Total Antibody,EIA Negative Normal Negative [facility] Comment on above: Result Comment: Lyme Antibody Negative No laboratory evidence of infection with B. burgdorferi (Lyme disease). Negative results may occur in patients recently infected (greater than or equal to 14 days) with B. burgdorferi. If recent infection is suspected, repeat testing on a new sample collected in 7 to 14 days is recommended. Performed By: #### JULIA GARCIA UMICRO #### [facility] [address] [place] [address] Patria Escobaren AMISHA EIA W/REFLEX 5 BIOMARKER Son 11-03-2021 AMISHA Direct Positive Abnormal Negative [facility] Comment on above: Performed By: #### JULIA GARCIA UMICRO #### [facility] [address] [place] [address] Patria Abebe Anti-DNA (DS) Ab Qn <1 Normal 0-9 [facility] Comment on above: Result Comment: Nega tive <5 Equivocal 5 - 9 Positive >9 Performed By: #### JULIA GARCIA UMICRO #### [facility] [address] [place] [address] Patria Abebe WINDER HAND Antibodies 2.4 AI Critically high 0.0-0.9 [facility] Comment on above: Performed By: #### JULIA GARCIA UMICRO #### [facility] [address] [place] [address] Patria Abebe SEE BELOW: Comment Normal [facility] Comment on above: Result Comment: Auto [...] Sm (anti-Hunter) SLE 15 - 30% --------- WINDER HAND Mixed Connective Tissue Disease 95% (U1 nRNP, SLE 30 - 50% anti-ribonucleoprotein) Polymyositis and/or Dermatomyositis 20% --------- Scl-70 (antiDNA Scleroderma (diffuse) 20 - 35% topoisomerase) Crest 13% --------- Kristie-1 Polymyositis and/or Dermatomyositis 20 - 40% --------- Centromere B Scleroderma - Crest variant 80% Performed By: #### JULIA GARCIA UMICRO #### [facility] [address] [place] [address] Patria Mis Sjogren's Anti-SS-A <0.2 Normal 0.0-0.9 [facility] Comment on above: Performed By: #### JULIA GARCIA UMICRO #### [facility] [address] [place] [address] Patria Mis Sjogren's Anti-SS-B <0.2 Normal 0.0-0.9 [facility] Comment on above: Performed By: #### JULIA GARCIA UMICRO #### [facility] [address] [place] [address] Patria Mis Hunter Antibodies <0.2 Normal 0.0-0.9 [facility] Comment on above: Performed By: #### JULIA GARCIA UMICRO #### [facility] [address] [place] [address] Patria Mis CMV AB, IGGon 11-03-2021 Cytomegalovirus (CMV) Ab, IgG 5.70 U/mL Critically high 0.00-0.59 [facility] Comment on above: Result Comment: Nega tive <0.60 Equivocal 0.60 - 0.69 Positive >0.69 Performed By: #### JULIA GARCIA UMICRO #### [facility] [address] [place] [address] Patria Abebe SHIRA-MOTA VIRUS (EBV) AB PROFILEon 11-03-2021 EBV Ab VCA, IgG 122.0 U/mL Critically high 0.0-17.9 [facility] Comment on above: Result Comment: Nega tive <18.0 Equivocal 18.0 - 21.9 Positive >21.9 Performed By: #### Hugo VALENCIA #### [facility] [address] [place] [address] Dr. Evens Bowden EBV Ab VCA, IgM <36.0 Normal 0.0-35.9 [facility] Comment on above: Result Comment: Nega tive <36.0 Equivocal 36.0 - 43.9 Positive >43.9 Performed By: #### Hugo VALENCIA #### [facility] [address] [place] [address] Dr. Evens Bowden EBV Nuclear Antigen Ab, IgG 244.0 U/mL Critically high 0.0-17.9 [facility] Comment on above: Result Comment: Nega tive <18.0 Equivocal 18.0 - 21.9 Positive >21.9 Performed By: #### Hugo CORREIAB #### [facility] [address] [place] [address] Dr. Evens Bowden Interpretation: Comment Normal [facility] Comment on above: Result Comment: EBV [...] EBNA. Performed By: #### Hugo VALENCIA #### [facility] [address] [place] [address] Dr. Evens Bowden RHEUMATOID FACTORon 11-04-19 RA Latex Turbid. <10.0 Normal <14.0 [facility] Comment on above: Performed By: #### Hugo VALENCIA #### [facility] [address] [place], [place] [address] Dr. Evens Bowden CPKon 11-02-2021 CK [Catalytic activity/Vol] 150 U/L Normal 26-192 [facility] Comment on above: Performed By: #### C K #### [facility] [address] [place], [place] [address] Dr. Evens Bowden MRI BRAIN WO W [...] SANDRA VERDIN Date: 2021-10-01 13:31 Normal [facility] MRI CSPINE WO W CONon 2021 [...] SANDRA VERDIN Date: 2021-10-01 13:52 Normal [facility] INSULINon 09-11-2021 Insulin 5.2 uIU/mL Normal 2.6-24.9 [facility] Comment on above: Performed By: #### P REGU, ERUR, UMICRO #### [facility] [address] [place] [address] Patria Abebe CBC AUTO DIFFon 09-10-2021 BASO # 0.0 103/ul Normal 0.0-0.1 [facility] Comment on above: Performed By: #### C BC #### [facility] [address] [place] [address] Dr. Evens Bowden Basophils/100 WBC (Bld) 0.7 % Normal 0.2-2.0 [facility] Comment on above: Performed By: #### C BC #### [facility] [address] [place] [address] Dr. Evens Bowden EO # 0.1 103/ul Normal 0.0-0.7 [facility] Comment on above: Performed By: #### C BC #### [facility] [address] [place] [address] Dr. Evens Bowden Eosinophils/100 WBC (Bld) 2.6 % Normal 0.9-7.0 [facility] Comment on above: Performed By: #### C BC #### [facility] [address] [place] [address] Dr. Evens Bowden Erythrocyte distribution width (RBC) [Ratio] 13.7 % Normal 11.0-15.0 [facility] Comment on above: Performed By: #### C BC #### [facility] [address] [place] [address] Dr. Evens Bowden Hematocrit (Bld) [Volume fraction] 33.2 % Critically low 36.0-48.0 [facility] Comment on above: Performed By: #### C BC #### [facility] [address] [address] [address] Evens Bowden Hemoglobin (Bld) [Mass/Vol] 10.4 g/dL Critically low 12.0-16.0 [facility] Comment on above: Performed By: #### C BC #### [facility] [address] [address] [address] Evens Bowden IG # 0.02 10e3/ul Normal 0.00-0.03 [facility] Comment on above: Performed By: #### C BC #### [facility] [address] [place] [address] Dr. Evens Bowden IG % 0.4 % Normal 0.0-0.5 [facility] Comment on above: Performed By: #### C BC #### [facility] [address] [place] [address] Dr. Evens Bowden LYMPH # 2.0 103/ul Normal 1.2-3.8 [facility] Comment on above: Performed By: #### C BC #### [facility] [address] [place] [address] Dr. Evens Bowden Lymphocytes/100 WBC (Bld) 37.7 % Normal 20.5-60.0 [facility] Comment on above: Performed By: #### C BC #### [facility] [address] [place] [address] Dr. Evens Bowden MANUAL DIFF REQ NO Normal [facility] Comment on above: Performed By: #### C BC #### [facility] [address] [place] [address] Dr. Evens Bowden MCH (RBC) [Entitic mass] 27.2 pg Normal 26.7-34.0 [facility] Comment on above: Performed By: #### C BC #### [facility] [address] [place] [address] Dr. Evens Bowden MCHC (RBC) [Mass/Vol] 31.3 g/dL Normal 29.9-35.2 [facility] Comment on above: Performed By: #### C BC #### [facility] [address] [address] [address] Evens Bowden MCV (RBC) [Entitic vol] 86.9 fL Normal 81.0-99.0 [facility] Comment on above: Performed By: #### C BC #### [facility] [address] [address] [address] Evens Bowden MONO # 0.4 103/ul Normal 0.3-0.8 [facility] Comment on above: Performed By: #### C BC #### [facility] [address] [address] [address] Evens Bowden Monocytes/100 WBC (Bld) 7.1 % Normal 1.7-12.0 [facility] Comment on above: Performed By: #### C BC #### [facility] [address] [place] [address] Dr. Evens Bowden NEUT # 2.8 103/ul Normal 1.4-6.5 [facility] Comment on above: Performed By: #### C BC #### [facility] [address] [place] [address] Dr. Evens Bowden Neutrophils/100 WBC (Bld) 51.5 % Normal 43.0-75.0 [facility] Comment on above: Performed By: #### C BC #### [facility] [address] [place] [address] Dr. Evens Bowden Platelet mean volume (Bld) [Entitic vol] 8.6 fL Critically low 9.5-13.5 [facility] Comment on above: Performed By: #### C BC #### [facility] [address] [place] [address] Dr. Evens Bowden PLT 428 103/ul Normal 150-450 [facility] Comment on above: Performed By: #### C BC #### [facility] [address] [address] [address] Evens Bowden RBC 3.82 106/ul Critically low 4.20-5.40 [facility] Comment on above: Performed By: #### C BC #### [facility] [address] [address] [address] Evens Bowden WBC 5.4 103/ul Normal 4.0-11.0 [facility] Comment on above: Performed By: #### C BC #### [facility] [address] [place] [address] Dr. Evens Bowden CRPon 09-10-2021 CRP [Mass/Vol] mg/L Normal <=1.0 [facility] Comment on above: Performed By: #### C BC #### [facility] [address] [address] [address] Evens Bowden FREE THYROXINE INDEX T7on FTI 2.52 Normal [facility] Comment on above: Performed By: #### C BC #### [facility] [address] [place] [address] Dr. Evens Bowden T3U 35.0 % Normal 23.5-40.5 [facility] Comment on above: Performed By: #### C BC #### [facility] [address] [place] [address] Dr. Evens Bowden T4 [Mass/Vol] 7.20 ug/dL Normal 5.53-11.00 [facility] Comment on above: Performed By: #### C BC #### [facility] [address] [place] [address] Dr. Evens Bowden GLYCOHEMOGLOBIN A1Con 2021 ADA RECOMMENDATION ADA THERAPEUTIC TARG ET 6.0 - 7.0 ACTION SUGGESTED > 7.0 Normal [facility] Comment on above: Performed By: #### P JULIA MURRAY UMICRO #### [facility] [address] [address] Patria Mis Glucose [Mass/Vol] 117 mg/dL Normal [facility] Comment on above: Performed By: #### P JULIA MURRAY UMICRO #### [facility] [address] [place] [address] Patria Mis HbA1c (Bld) [Mass fraction] 5.7 % Normal <=6.0 [facility] Comment on above: Performed By: #### P REGU, SHOSHANAR, UMICRO #### [facility] [address] [address] Patria Abebe IRONon 09-10-2021 Iron [Mass/Vol] 46.0 ug/dL Normal 37.0-170.0 [facility] Comment on above: Performed By: #### I MULUGETA PEARSON #### [facility] [address] [address] [address] Evens Bowden LIPID PROFILEon 09-10-2021 CHOL-HDL RATIO NORM SEE BELOW Normal [facility] Comment on above: Result Comment: 3.3 - 4.4 LOW RISK 4.4 - 7.1 AVERAGE RISK 7.1 - 11.0 MODERATE RISK >11.0 HIGH RISK Performed By: #### C MP, TSH, T7, LIPID, CRP #### [facility] [address] [address] [address] Evens Bowden Cholesterol [Mass/Vol] 130 mg/dL Normal <=200 [facility] Comment on above: Performed By: #### C MP, TSH, T7, LIPID, CRP #### [facility] [address] [address] [address] Evens Bowden Cholesterol in HDL [Mass/Vol] 53 mg/dL Normal 40-60 [facility] Comment on above: Performed By: #### C MP, TSH, T7, LIPID, CRP #### [facility] [address] [address] [address] Evens Bowden Cholesterol in LDL [Mass/Vol] 69.2 mg/dL Normal [facility] Comment on above: Performed By: #### C MP, TSH, T7, LIPID, CRP #### [facility] [address] [address] [address] Evens Bowden Cholesterol.total/C holesterol in HDL [Mass ratio] 2.5 {ratio} Normal [facility] Comment on above: Performed By: #### C MP, TSH, T7, LIPID, CRP #### [facility] [address] [address] [address] Evens Bowden HDL NORMAL > or = 60 mg/dl - LO W CARDIOVASCULAR RISK <40 mg/dl - HIGH CARDIOVASCULAR RISK Normal [facility] Comment on above: Performed By: #### C MP, TSH, T7, LIPID, CRP #### [facility] [address] [address] [address] Evens Bowden LDL CALC NORMAL SEE BELOW Normal [facility] Comment on above: Result Comment: <100 mg/dl OPTIMAL 100 - 129 mg/dl NEAR OR ABOVE OPTIMAL 130 - 159 mg/dl BORDERLINE HIGH 160 - 189 mg/dl HIGH >190 mg/dl VERY HIGH Performed By: #### C MP, TSH, T7, LIPID, CRP #### [facility] [address] [address] [address] Evens Bowden Triglyceride [Mass/Vol] 39 mg/dL Normal <=150 [facility] Comment on above: Performed By: #### C MP, TSH, T7, LIPID, CRP #### [facility] [address] [address] [address] Evens Bowden VLDL CALC 7.8 mg/dL Normal [facility] Comment on above: Performed By: #### C MP, TSH, T7, LIPID, CRP #### [facility] [address] [address] [address] Evens Bowden PROF 14(COMP METB)on 022 Albumin [Mass/Vol] 4.0 g/dL Normal 3.4-5.0 [facility] Comment on above: Performed By: #### C MP, TSH, T7, LIPID, CRP #### [facility] [address] [address] [address] Evens Bowden Albumin/Globulin [Mass ratio] 1.1 {ratio} Normal [facility] Comment on above: Performed By: #### C MP, TSH, T7, LIPID, CRP #### [facility] [address] [address] [address] Evens Bowden ALP [Catalytic activity/Vol] 84 U/L Normal 46-116 [facility] Comment on above: Performed By: #### C MP, TSH, T7, LIPID, CRP #### [facility] [address] [address] [address] Evens Bowden ALT [Catalytic activity/Vol] 33 U/L Normal 14-59 [facility] Comment on above: Performed By: #### C MP, TSH, T7, LIPID, CRP #### [facility] [address] [place] [address] Dr. Evens Bowden Anion gap [Moles/Vol] 12.1 mmol/L Normal [facility] Comment on above: Performed By: #### C MP, TSH, T7, LIPID, CRP #### [facility] [address] [place] [address] Dr. Evens Bowden AST [Catalytic activity/Vol] 18 U/L Normal 15-37 [facility] Comment on above: Performed By: #### C MP, TSH, T7, LIPID, CRP #### [facility] [address] [place] [address] Dr. Evens Bowden Bilirubin [Mass/Vol] 0.5 mg/dL Normal 0.2-1.3 [facility] Comment on above: Performed By: #### C MP, TSH, T7, LIPID, CRP #### [facility] [address] [place] [address] Dr. Evens Bowden Calcium [Mass/Vol] 8.2 mg/dL Critically low 8.5-10.1 [facility] [facility] Comment on above: Performed By: #### C MP, TSH, T7, LIPID, CRP #### [facility] [address] [place] [address] Dr. Evens Bowden Chloride [Moles/Vol] 105 mmol/L Normal 98-107 [facility] Comment on above: Performed By: #### C MP, TSH, T7, LIPID, CRP #### [facility] [address] [place] [address] Dr. Evens Bowden CO2 [Moles/Vol] 26.3 mmol/L Normal 22.0-30.0 [facility] Comment on above: Performed By: #### C MP, TSH, T7, LIPID, CRP #### [facility] [address] [place] [address] Dr. Evens Bowden Creatinine [Mass/Vol] 0.62 mg/dL Normal 0.52-1.04 [facility] Comment on above: Performed By: #### C MP, TSH, T7, LIPID, CRP #### [facility] [address] [place] [address] Dr. Evens Bowden EGFR-AF BOTSWANAN >60 Normal >=60 [facility] Comment on above: Performed By: #### C MP, TSH, T7, LIPID, CRP #### [facility] [address] [place] [address] Dr. Evens Bowden EGFR-NON AF BOTSWANAN >60 Normal >=60 [facility] Comment on above: Performed By: #### C MP, TSH, T7, LIPID, CRP #### [facility] [address] [place] [address] Dr. Evens Bowden Globulin (S) [Mass/Vol] 3.5 g/dL Normal [facility] Comment on above: Performed By: #### C MP, TSH, T7, LIPID, CRP #### [facility] [address] [place] [address] Dr. Evens Bowden Glucose [Mass/Vol] 90 mg/dL Normal 74-106 [facility] Comment on above: Performed By: #### C MP, TSH, T7, LIPID, CRP #### [facility] [address] [place] [address] Dr. Evens Bowden Potassium [Moles/Vol] 4.4 mmol/L Normal 3.4-5.0 [facility] Comment on above: Performed By: #### C MP, TSH, T7, LIPID, CRP #### [facility] [address] [place] [address] Dr. Evens Bowden Protein [Mass/Vol] 7.5 g/dL Normal 6.1-8.2 [facility] Comment on above: Performed By: #### C MP, TSH, T7, LIPID, CRP #### [facility] [address] [place] [address] Dr. Evens Bowden Sodium [Moles/Vol] 139 mmol/L Normal 137-145 [facility] Comment on above: Performed By: #### C MP, TSH, T7, LIPID, CRP #### [facility] [address] [place] [address] Dr. Evens Bowden Urea nitrogen [Mass/Vol] 7.0 mg/dL Normal 7.0-18.0 [facility] Comment on above: Performed By: #### C MP, TSH, T7, LIPID, CRP #### [facility] [address] [place] [address] Dr. Evens Bowden Urea nitrogen/Creatinine [Mass ratio] 11.3 mg/mg Normal [facility] Comment on above: Performed By: #### C MP, TSH, T7, LIPID, CRP #### [facility] [address] [place] [address] Dr. Evens Bowden [facility] 6 mm/hr Normal <=20 [facility] Comment on above: Performed By: #### M USKAB #### [facility] [address] [place] [address] Dr. Evens Bowden TSHon 09-10-2021 TSH 1.205 uIU/mL Normal 0.470-4.680 [facility] Comment on above: Performed By: #### C BC #### [facility] [address] [place] [address] Dr. Evens Bowden TSH RANGE SEE BELOW Normal [facility] Comment on above: Result Comment: <0.3 4 UIU/ml HYPERTHYROID 0.34-5.60 UIU/ml EUTHYROID >5.60 UIU/ml HYPOTHYROID Performed By: #### C BC #### [facility] [address] [place] [address] Dr. Evens Bowden VITAMIN D 25 OHon 09-10-2021 VIT D 25-OH 11.5 ng/mL Normal [facility] Comment on above: Performed By: #### I MICHEL, VITAD #### [facility] [address] [place] [address] Dr. Evens Bowden VIT D RANGES SEE BELOW Normal [facility] Comment on above: Result Comment: <20 ng/mL Vit D deficient 20 - <30 ng/mL Vit D insufficient 30 - 100 ng/mL Vit D sufficient >100 ng/mL Potential Toxicity Performed By: #### I MICHEL, VITAD #### [facility] [address] [place] [address] Dr. Evens Bowden VITAMIN B1 (THIAMINE)on 02-27 Vit. B1, Whole Blood 85.1 nmol/L Normal 66.5-200.0 [facility] Comment on above: Performed By: #### C BC #### [facility] [address] [place] [address] Dr. Evens Bowden CBC AUTO DIFFon 03-10-2021 BASO # 0.0 103/ul Normal 0.0-0.1 [facility] Comment on above: Performed By: #### Hugo VALENCIA #### [facility] [address] [place] [address] Dr. Evens Bowden Basophils/100 WBC (Bld) 0.8 % Normal 0.2-2.0 [facility] Comment on above: Performed By: #### Hugo VALENCIA #### [facility] [address] [place] [address] Dr. Evens Bowden EO # 0.2 103/ul Normal 0.0-0.7 [facility] Comment on above: Performed By: #### Hugo VALENICA #### [facility] [address] [place] [address] Dr. Evens Bowden Eosinophils/100 WBC (Bld) 3.4 % Normal 0.9-7.0 [facility] Comment on above: Performed By: #### Hugo VALENCIA #### [facility] [address] [place] [address] Dr. Evens Bowden Erythrocyte distribution width (RBC) [Ratio] 13.2 % Normal 11.0-15.0 [facility] Comment on above: Performed By: #### Hugo VALENCIA #### [facility] [address] [place] [address] Dr. Evens Bowden Hematocrit (Bld) [Volume fraction] 34.2 % Critically low 36.0-48.0 [facility] Comment on above: Performed By: #### Hugo VALENCIA #### [facility] [address] [place] [address] Dr. Evens Bowden Hemoglobin (Bld) [Mass/Vol] 11.2 g/dL Critically low 12.0-16.0 [facility] Comment on above: Performed By: #### M MASOODB #### [facility] [address] [address] [address] Evens Bowden IG # 0.01 10e3/ul Normal 0.00-0.03 [facility] Comment on above: Performed By: #### M MASOODB #### [facility] [address] [address] [address] Evens Bowden IG % 0.2 % Normal 0.0-0.5 [facility] Comment on above: Performed By: #### M MASOODB #### [facility] [address] [place] [address] Dr. Evens Bowden LYMPH # 1.6 103/ul Normal 1.2-3.8 [facility] Comment on above: Performed By: #### M MASOODB #### [facility] [address] [address] [address] Evens Bowden Lymphocytes/100 WBC (Bld) 32.5 % Normal 20.5-60.0 [facility] Comment on above: Performed By: #### M MASOODB #### [facility] [address] [place] [address] Dr. Evens Bowden MANUAL DIFF REQ NO Normal [facility] Comment on above: Performed By: #### M MASOODB #### [facility] [address] [address] [address] Evens Bowden MCH (RBC) [Entitic mass] 30.6 pg Normal 26.7-34.0 [facility] Comment on above: Performed By: #### M MASOODB #### [facility] [address] [address] [address] Evens Bowden MCHC (RBC) [Mass/Vol] 32.7 g/dL Normal 29.9-35.2 [facility] Comment on above: Performed By: #### M MASOODB #### [facility] [address] [address] [address] Evens Bowden MCV (RBC) [Entitic vol] 93.4 fL Normal 81.0-99.0 [facility] Comment on above: Performed By: #### M MASOODB #### [facility] [address] [place] [address] Dr. Evens Bowden MONO # 0.5 103/ul Normal 0.3-0.8 [facility] Comment on above: Performed By: #### M MASOODB #### [facility] [address] [place] [address] Dr. Evens Bowden Monocytes/100 WBC (Bld) 10.7 % Normal 1.7-12.0 [facility] Comment on above: Performed By: #### M MASOODB #### [facility] [address] [place] [address] Dr. Evens Bowden NEUT # 2.6 103/ul Normal 1.4-6.5 [facility] Comment on above: Performed By: #### M MASOODB #### [facility] [address] [place] [address] Dr. Evens Bowden Neutrophils/100 WBC (Bld) 52.4 % Normal 43.0-75.0 [facility] Comment on above: Performed By: #### M MASOODB #### [facility] [address] [place] [address] Dr. Evens Bowden Platelet mean volume (Bld) [Entitic vol] 9.3 fL Critically low 9.5-13.5 [facility] Comment on above: Performed By: #### M KAB #### [facility] [address] [place] [address] Dr. Evens Bowden PLT 373 103/ul Normal 150-450 [facility] Comment on above: Performed By: #### M MASOODB #### [facility] [address] [place] [address] Dr. Evens Bowden RBC 3.66 106/ul Critically low 4.20-5.40 [facility] Comment on above: Performed By: #### M MASOODB #### [facility] [address] [place] [address] Dr. Evens Bowden WBC 5.0 103/ul Normal 4.0-11.0 [facility] Comment on above: Performed By: #### M USKAB #### [facility] [address] [place] [address] Dr. Evens Bowden FOLATEon 03-10-2021 FOLATE 7.50 ng/mL Normal >=2.76 [facility] Comment on above: Performed By: #### P REGJULIA Lang, UMICRO #### [facility] [address] [place] [address] Patria Mis IRON AND TIBCon 03-10-2021 % SATURATION 8.7 % Normal [facility] Comment on above: Performed By: #### P REGUSHOSHANAR, UMICRO #### [facility] [address] [place] [address] Pat[facility] Mis Iron [Mass/Vol] 29.0 ug/dL Critically low 37.0-170.0 [facility] Comment on above: Performed By: #### P REGJULIA Lang, UMICRO #### [facility] [address] [place] [address] Patria Mis TIBC DIRECT 332.0 ug/dL Normal 261.0-497.0 [facility] Comment on above: Performed By: #### P REGUSHOSHANAR, UMICRO #### [facility] [address] [place] [address] Pat[facility] Mis MAGNESIUMon 03-10-2021 Magnesium [Mass/Vol] 1.7 mg/dL Normal 1.6-2.3 [facility] Comment on above: Performed By: #### C BC #### [facility] [address] [place] [address] Dr. Evens Bowden PHOSPHORUSon 03-10-2021 Phosphate [Mass/Vol] 3.7 mg/dL Normal 2.5-4.5 [facility] Comment on above: Performed By: #### C BC #### [facility] [address] [place] [address] Dr. Evens Bowden PROF 14(COMP METB)on 021 Albumin [Mass/Vol] 3.6 g/dL Normal 3.5-5.0 [facility] Comment on above: Performed By: #### C BC #### [facility] [address] [place] [address] Dr. Evens Bowden Albumin/Globulin [Mass ratio] 1.1 {ratio} Normal [facility] Comment on above: Performed By: #### C BC #### [facility] [address] [place] [address] Dr. Evens Bowden ALP [Catalytic activity/Vol] 91 U/L Normal 38-126 [facility] Comment on above: Performed By: #### C BC #### [facility] [address] [place] [address] Dr. Evens Bowden ALT [Catalytic activity/Vol] 31 U/L Normal 9-52 [facility] Comment on above: Performed By: #### C BC #### [facility] [address] [place] [address] Dr. Evens Bowden Anion gap [Moles/Vol] 12.5 mmol/L Normal [facility] Comment on above: Performed By: #### C BC #### [facility] [address] [place] [address] Dr. Evens Bowden AST [Catalytic activity/Vol] 22 U/L Normal 14-36 [facility] Comment on above: Performed By: #### C BC #### [facility] [address] [place] [address] Dr. Evens Bowden Bilirubin [Mass/Vol] 0.4 mg/dL Normal 0.2-1.3 [facility] Comment on above: Performed By: #### C BC #### [facility] [address] [place] [address] Dr. Evens Bowden Calcium [Mass/Vol] 8.2 mg/dL Critically low 8.4-10.2 [facility] Comment on above: Performed By: #### C BC #### [facility] [address] [place] [address] Dr. Evens Bowden Chloride [Moles/Vol] 106 mmol/L Normal 98-107 [facility] Comment on above: Performed By: #### C BC #### [facility] [address] [place] [address] Dr. Evens Bowden CO2 [Moles/Vol] 26.3 mmol/L Normal 22.0-30.0 [facility] Comment on above: Performed By: #### C BC #### [facility] [address] [place] [address] Dr. Evens Bowden Creatinine [Mass/Vol] 0.57 mg/dL Normal 0.52-1.04 [facility] Comment on above: Performed By: #### C BC #### [facility] [address] [place] [address] Dr. Evens Bowden EGFR-AF BOTSWANAN >60 Normal >=60 [facility] Comment on above: Performed By: #### C BC #### [facility] [address] [place] [address] Dr. Evens Bowden EGFR-NON AF BOTSWANAN >60 Normal >=60 [facility] Comment on above: Performed By: #### C BC #### [facility] [address] [place] [address] Dr. Evens Bowden Globulin (S) [Mass/Vol] 3.4 g/dL Normal [facility] Comment on above: Performed By: #### C BC #### [facility] [address] [place] [address] Dr. Evens Bowden Glucose [Mass/Vol] 92 mg/dL Normal 74-106 [facility] Comment on above: Performed By: #### C BC #### [facility] [address] [place] [address] Dr. Evens Bowden Potassium [Moles/Vol] 3.8 mmol/L Normal 3.4-5.0 [facility] Comment on above: Performed By: #### C BC #### [facility] [address] [place] [address] Dr. Evens Bowden Protein [Mass/Vol] 7.0 g/dL Normal 6.1-8.2 [facility] Comment on above: Performed By: #### C BC #### [facility] [address] [place] [address] Dr. Evens Bowden Sodium [Moles/Vol] 141 mmol/L Normal 137-145 [facility] Comment on above: Performed By: #### C BC #### [facility] [address] [place] [address] Dr. Evens Bowden Urea nitrogen [Mass/Vol] 7.0 mg/dL Normal 7.0-17.0 [facility] Comment on above: Performed By: #### C BC #### [facility] [address] [place] [address] Dr. Evens Bowden Urea nitrogen/Creatinine [Mass ratio] 12.3 mg/mg Normal [facility] Comment on above: Performed By: #### C BC #### [facility] [address] [place] [address] Dr. Evens Bowden VITAMIN B12on 03-10-2021 Cobalamin (Vitamin B12) [Mass/Vol] 211.0 pg/mL Critically low 239.0-931.0 [facility] Comment on above: Performed By: #### P JULIA MURRAY UMWARRENRO #### [facility] [address] [place] [address] [facility] Mis VITAMIN D 25 OHon 03-10-2021 VIT D 25-OH 15.8 ng/mL Normal [facility] Comment on above: Performed By: #### JULIA GARCIA UMICRO #### [facility] [address] [place] [address] [facility] Mis VIT D RANGES SEE BELOW Normal [facility] Comment on above: Result Comment: <20 ng/mL Vit D deficient 20 - <30 ng/mL Vit D insufficient 30 - 100 ng/mL Vit D sufficient >100 ng/mL Potential Toxicity Performed By: #### P JULIA MURRAY UMICRO #### [facility] [address] [place] [address] [facility] Mis VITAMIN D 25 OHon 02-10-2021 VIT D 25-OH 16.7 ng/mL Normal [facility] Comment on above: Performed By: #### Hugo CORREIAB #### [facility] [address] [place] [address] Dr. Evens Bowden VIT D RANGES SEE BELOW Normal [facility] Comment on above: Result Comment: <20 ng/mL Vit D deficient 20 - <30 ng/mL Vit D insufficient 30 - 100 ng/mL Vit D sufficient >100 ng/mL Potential Toxicity Performed By: #### M ERIK #### [facility] [address] [place] [address] Dr. Evens Bowden CBC AUTO DIFFon 01-02-2021 BASO # 0.1 103/ul Normal 0.0-0.1 [facility] Comment on above: Performed By: #### C BC #### [facility] [address] [place] [address] Dr. Evens Bowden Basophils/100 WBC (Bld) 0.5 % Normal 0.2-2.0 [facility] Comment on above: Performed By: #### C BC #### [facility] [address] [place] [address] Dr. Evens Bowden EO # 0.0 103/ul Normal 0.0-0.7 [facility] Comment on above: Performed By: #### C BC #### [facility] [address] [place] [address] Dr. Evens Bowden Eosinophils/100 WBC (Bld) 0.4 % Critically low 0.9-7.0 [facility] Comment on above: Performed By: #### C BC #### [facility] [address] [place] [address] Dr. Evens Bowden Erythrocyte distribution width (RBC) [Ratio] 13.2 % Normal 11.0-15.0 [facility] Comment on above: Performed By: #### C BC #### [facility] [address] [place] [address] Dr. Evens Bowden Hematocrit (Bld) [Volume fraction] 35.3 % Critically low 36.0-48.0 [facility] Comment on above: Performed By: #### C BC #### [facility] [address] [place] [address] Dr. Evens Bowden Hemoglobin (Bld) [Mass/Vol] 11.6 g/dL Critically low 12.0-16.0 [facility] Comment on above: Performed By: #### C BC #### [facility] [address] [place] [address] Dr. Evens Bowden IG # 0.02 10e3/ul Normal 0.00-0.03 [facility] Comment on above: Performed By: #### C BC #### [facility] [address] [place] [address] Dr. Evens Bowden IG % 0.2 % Normal 0.0-0.5 [facility] Comment on above: Performed By: #### C BC #### [facility] [address] [place] [address] Dr. Evens Bowden LYMPH # 1.1 103/ul Critically low 1.2-3.8 [facility] Comment on above: Performed By: #### C BC #### [facility] [address] [place] [address] Dr. Evens Bowden Lymphocytes/100 WBC (Bld) 11.0 % Critically low 20.5-60.0 [facility] Comment on above: Performed By: #### C BC #### [facility] [address] [place] [address] Dr. Evens Bowden MANUAL DIFF REQ NO Normal [facility] Comment on above: Performed By: #### C BC #### [facility] [address] [place] [address] Dr. Evens Bowden MCH (RBC) [Entitic mass] 30.5 pg Normal 26.7-34.0 [facility] Comment on above: Performed By: #### C BC #### [facility] [address] [place] [address] Dr. Evens Bowden MCHC (RBC) [Mass/Vol] 32.9 g/dL Normal 29.9-35.2 [facility] Comment on above: Performed By: #### C BC #### [facility] [address] [place] [address] Dr. Evens Bowden MCV (RBC) [Entitic vol] 92.9 fL Normal 81.0-99.0 [facility] Comment on above: Performed By: #### C BC #### [facility] [address] [place] [address] Dr. Evens Bowden MONO # 0.6 103/ul Normal 0.3-0.8 [facility] Comment on above: Performed By: #### C BC #### [facility] [address] [place] [address] Dr. Evens Bowden Monocytes/100 WBC (Bld) 6.2 % Normal 1.7-12.0 [facility] Comment on above: Performed By: #### C BC #### [facility] [address] [place] [address] Dr. Evens Bowden NEUT # 8.4 103/ul Critically high 1.4-6.5 [facility] Comment on above: Performed By: #### C BC #### [facility] [address] [place] [address] Dr. Evens Bowden Neutrophils/100 WBC (Bld) 81.7 % Critically high 43.0-75.0 [facility] Comment on above: Performed By: #### C BC #### [facility] [address] [place] [address] Dr. Evens Bowden Platelet mean volume (Bld) [Entitic vol] 10.0 fL Normal 9.5-13.5 [facility] Comment on above: Performed By: #### C BC #### [facility] [address] [place] [address] Dr. Evens Bowden PLT 317 103/ul Normal 150-450 [facility] Comment on above: Performed By: #### C BC #### [facility] [address] [place], [place] [id number] Dr. Evens Bowden RBC 3.80 106/ul Critically low 4.20-5.40 [facility] Comment on above: Performed By: #### C BC #### [facility] [address] [place] [address] Dr. Evens Bowden WBC 10.2 103/ul Normal 4.0-11.0 [facility] Comment on above: Performed By: #### C BC #### [facility] [address] [address] [address] ABD/PELVIS WO CONon [...] AUDREY ROWE Date: 2021-01-02 10:13 Normal [facility] CULTURE URINEon 01-02-2021 CULTURE URINE Culture Observations : MODERATE GROWTH OF MIXED GENITAL SHEYLA. NO POTENTIAL PATHOGENS SEEN. Normal [facility] Comment on above: Performed By: #### M USKAB #### [facility] [id number] Evens Bowden ER URINE PROFILEon Bilirubin Ql (U) SMALL Abnormal NEGATIVE [facility] Comment on above: Performed By: #### P REGU, ERUR, UMICRO #### [facility] [address] [address] Patria Mis Clarity (U) SL CLOUDY Abnormal CLEAR [facility] Comment on above: Performed By: #### P JULIA MURRAY UMICRO #### [facility] [address] [address] [facility] Mis Color (U) YELLOW Normal YELLOW [facility] Comment on above: Performed By: #### JULIA GARCIA UMICRO #### [facility] [address] [address] [facility] Mis ERUAHD A micrscopic examina tion will be performed if indicated. Normal [facility] Comment on above: Performed By: #### JULIA GARCIA UMICRO #### [facility] [address] [address] [facility] Mis Glucose Ql (U) Negative Normal NEGATIVE [facility] Comment on above: Performed By: #### JULIA GARCIA UMICRO #### [facility] [address] [address] Pat[facility] Mis Hemoglobin Ql (U) TRACE-LYSED Abnormal NEGATIVE [facility] Comment on above: Performed By: #### JULIA GARCIA UMICRO #### [facility] [address] [address] Patria Mis Ketones Ql (U) 40 mg/dl Abnormal NEGATIVE [facility] Comment on above: Performed By: #### JULIA GARCIA UMICRO #### [facility] [address] [address] [facility] Mis LEUKOCYTES Negative Normal NEGATIVE [facility] Comment on above: Performed By: #### P JULIA MURRAY UMICRO #### [facility] [address] [address] [facility] Mis Nitrite Ql (U) Negative Normal NEGATIVE [facility] Comment on above: Performed By: #### JULIA GARCIA UMICRO #### [facility] [address] [address] [facility] Mis pH (U) 6.0 [pH] Normal 5-9 [facility] Comment on above: Performed By: #### JULIA GARCIA UMICRO #### [facility] [address] [place] [address] Patria Abebe SPEC GRAVITY >=1.030 Abnormal 1.005-<=1.025 [facility] Comment on above: Performed By: #### JULIA GARCIA UMICRO #### [facility] [address] [place] [address] Patria Abebe UA PROTEIN Negative Normal NEGATIVE/ TRACE [facility] Comment on above: Performed By: #### JULIA GARCIA UMICRO #### [facility] [address] [place] [address] Patria Abebe UR MICRO IND INDICATED Normal [facility] Comment on above: Performed By: #### JULIA GARCIA UMICRO #### [facility] [address] [place] [address] Patria Abebe Urobilinogen Qn (U) 4 {Johnnie'U}/dL Abnormal 0.2 - 1.0 [facility] Comment on above: Performed By: #### JULIA GARCIA UMICRO #### [facility] [address] [place] [address] Patria Abebe LIPASEon 01-02-2021 Lipase [Catalytic activity/Vol] 64.0 U/L Normal 23.0-300.0 [facility] Comment on above: Performed By: #### C BC #### [facility] [address] [place] [address] Dr. Evens Bowden URon 01-02-2021 , QUAL Negative Normal NEGATIVE [facility] Comment on above: Performed By: #### JULIA GARCIA UMICRO #### [facility] [address] [place] [address] Patria Abebe PROF 14(COMP METB)on 021 Albumin [Mass/Vol] 4.2 g/dL Normal 3.5-5.0 [facility] Comment on above: Performed By: #### C BC #### [facility] [address] [place] [address] Dr. Evens Bowden Albumin/Globulin [Mass ratio] 1.1 {ratio} Normal [facility] Comment on above: Performed By: #### C BC #### [facility] [address] [place] [address] Dr. Evens Bowden ALP [Catalytic activity/Vol] 100 U/L Normal 38-126 [facility] Comment on above: Performed By: #### C BC #### [facility] [address] [place] [address] Dr. Evens Bowden ALT [Catalytic activity/Vol] 41 U/L Normal 9-52 [facility] Comment on above: Performed By: #### C BC #### [facility] [address] [place] [address] Dr. Evens Bowden Anion gap [Moles/Vol] 14.4 mmol/L Normal [facility] Comment on above: Performed By: #### C BC #### [facility] [address] [place] [address] Dr. Evens Bowden AST [Catalytic activity/Vol] 30 U/L Normal 14-36 [facility] Comment on above: Performed By: #### C BC #### [facility] [address] [place] [address] Dr. Evens Bowden Bilirubin [Mass/Vol] 0.5 mg/dL Normal 0.2-1.3 [facility] Comment on above: Performed By: #### C BC #### [facility] [address] [place] [address] Dr. Evens Bowden Calcium [Mass/Vol] 9.0 mg/dL Normal 8.4-10.2 [facility] Comment on above: Performed By: #### C BC #### [facility] [address] [place] [address] Dr. Evens Bowden Chloride [Moles/Vol] 106 mmol/L Normal 98-107 [facility] Comment on above: Performed By: #### C BC #### [facility] [address] [address] [address] Evens Bowden CO2 [Moles/Vol] 26.3 mmol/L Normal 22.0-30.0 [facility] Comment on above: Performed By: #### C BC #### [facility] [address] [place] [address] Dr. Evens Bowden Creatinine [Mass/Vol] 0.74 mg/dL Normal 0.52-1.04 [facility] Comment on above: Performed By: #### C BC #### [facility] [address] [place] [address] Dr. Evens Bowden EGFR-AF BOTSWANAN >60 Normal >=60 [facility] Comment on above: Performed By: #### C BC #### [facility] [address] [place] [address] Dr. Evens Bowden EGFR-NON AF BOTSWANAN >60 Normal >=60 [facility] Comment on above: Performed By: #### C BC #### [facility] [address] [place] [address] Dr. Evens Bowden Globulin (S) [Mass/Vol] 3.7 g/dL Normal [facility] Comment on above: Performed By: #### C BC #### [facility] [address] [place] [address] Dr. Evens Bowden Glucose [Mass/Vol] 112 mg/dL Critically high 74-106 [facility] Comment on above: Performed By: #### C BC #### [facility] [address] [place] [address] Dr. Evens Bowden Potassium [Moles/Vol] 3.7 mmol/L Normal 3.4-5.0 [facility] Comment on above: Performed By: #### C BC #### [facility] [address] [place] [address] Dr. Evens Bowden Protein [Mass/Vol] 7.9 g/dL Normal 6.1-8.2 [facility] Comment on above: Performed By: #### C BC #### [facility] [address] [place] [address] Dr. Evens Bowden Sodium [Moles/Vol] 143 mmol/L Normal 137-145 [facility] Comment on above: Performed By: #### C BC #### [facility] [address] [place] [address] Dr. Evens Bowedn Urea nitrogen [Mass/Vol] 10.0 mg/dL Normal 7.0-17.0 [facility] Comment on above: Performed By: #### C BC #### [facility] [address] [place] [address] Dr. Evens Bowden Urea nitrogen/Creatinine [Mass ratio] 13.5 mg/mg Normal [facility] Comment on above: Performed By: #### C BC #### [facility] [address] [place] [address] Dr. Evens Bowden URINE MICROSCOPIC ONLYon BACTERIA MODERATE Abnormal NONE SEEN [facility] Comment on above: Performed By: #### P REGU, ERUR, UMICRO #### [facility] [address] [place] [address] Patria Mis Bacteria identified Cx Nom (U) INDICATED Normal [facility] Comment on above: Performed By: #### P REGU, ERUR, UMICRO #### [facility] [address] [place] [address] Patria Mis CAST NONE SEEN Normal NONE SEEN [facility] Comment on above: Performed By: #### P REGU, ERUR, UMICRO #### [facility] [address] [place] [address] Patria Mis Crystals LM Nom (Urine sed) NONE SEEN Normal NONE SEEN [facility] Comment on above: Performed By: #### P REGU, ERUR, UMICRO #### [facility] [address] [place], [place] [id number] Patria Mis Epithelial cells LM Ql (Urine sed) FEW Abnormal NONE SEEN /RARE [facility] Comment on above: Performed By: #### P REGU, ERUR, UMICRO #### [facility] [address] [place] [address] Patria Mis MUCOUS TRACE Abnormal NONE SEEN [facility] Comment on above: Performed By: #### P REGU, ERUR, UMICRO #### [facility] [address] [place], [place] [address] Patria Abebe RBC 0-2 Normal 0-2 [facility] Comment on above: Performed By: #### P JULIA MURRAY UMICRO #### [facility] [address] [place], [place] [address] Patria Abebe WBC 0-2 Abnormal NONE SEEN [facility] Comment on above: Performed By: #### P JULIA MURRAY UMICRO #### [facility] [address] [place], [place] [address] Patria Abebe MRI KNEE RT WO CONon [...] ALISON TONEY Date: 2020-12-08 16:25 Normal [facility] CBC and Differentialon 03-10 Abs Baso 0.03 k/uL Normal <0.11 [facility] Abs Bell 0.81 k/uL Normal <0.87 [facility] Abs Neut 2.94 k/uL Normal 1.45-7.50 [facility] Absolute nRBC <0.01 Normal <0.01 [facility] Basophils/100 WBC Auto (Bld) 0.5 % Normal [facility] DTYPE Auto Diff Normal [facility] Eosinophils Auto #/vol (Bld) 0.27 10*3/uL Normal <0.46 [facility] Eosinophils/100 WBC Auto (Bld) 4.6 % Normal [facility] Erythrocyte distribution width Auto Ratio (RBC) 12.7 % Normal 11.5-15.0 [facility] Hematocrit Auto Volume Fraction (Bld) 36.0 % Normal 36.0-46.0 [facility] Hemoglobin mass conc (Bld) 12.1 g/dL Normal 11.5-15.5 [facility] Lymphocytes Auto #/vol (Bld) 1.88 10*3/uL Normal 1.00-4.00 [facility] Lymphocytes/100 WBC Auto (Bld) 31.7 % Normal [facility] MCH Auto Entitic mass (RBC) 30.6 pG Normal 26.0-34.0 [facility] MCHC Auto mass conc (RBC) 33.6 g/dL Normal 30.5-36.0 [facility] MCV Auto Entitic volume (RBC) 91.1 fL Normal 80.0-100.0 [facility] Monocytes/100 WBC Auto (Bld) 13.7 % Normal [facility] Neutrophils/100 WBC Auto (Bld) 49.5 % Normal [facility] NRBCs 0.0 /100 WBC Normal 0 [facility] Platelet mean volume Auto Entitic volume (Bld) 9.4 fL Normal 9.0-12.7 [facility] Platelets Auto #/vol (Bld) 257 10*3/uL Normal 150-400 [facility] RBC Auto #/vol (Bld) 3.95 10*6/uL Normal 3.90-5.20 [facility] WBC Auto #/vol (Bld) 5.93 10*3/uL Normal 3.70-11.00 [facility] Comp Metabolic Panelon 03-10 Albumin mass conc 3.6 g/dL Low 3.9-4.9 [facility] ALP enzyme act/vol 46 U/L Normal 34-123 [facility] ALT enzyme act/vol 18 U/L Normal 7-38 [facility] Anion gap 3 molar conc 10 mmol/L Normal 9-18 [facility] AST enzyme act/vol Unable to assay. Román hernandez significantly hemolyzed. Normal 13-35 [facility] Bilirubin mass conc 0.2 mg/dL Normal 0.2-1.3 [facility] Calcium mass conc 8.1 mg/dL Low 8.6-10.0 [facility] Chloride molar conc 103 mmol/L Normal 97-105 [facility] CO2 molar conc 27 mmol/L Normal 22-30 [facility] Creatinine mass conc 0.68 mg/dL Normal 0.58-0.96 [facility] eGFR- Amer. >60 Normal [facility] GFR/1.73 sq M predicted among non-blacks MDRD vol rate/area (S/P/Bld) mL/min/{1.73_m2} [facility] Comment on above: Result Comment: eGFR [...] Glucose mass conc 105 mg/dL High 74-99 [facility] Comment on above: Result Comment: The [place] Diabetes Association (ADA) provides guidance for cutoff [...] Standards of Medical Care in Diabetes 2016, [place] [employer]. Diabetes Care. 2016.39(Suppl 1). Potassium molar conc 4.1 mmol/L Normal 3.7-5.1 [facility] Protein mass conc 6.1 g/dL Low 6.3-8.0 [facility] Sodium molar conc 140 mmol/L Normal 136-144 [facility] Urea nitrogen mass conc 8 mg/dL Normal 7-21 [facility] ED NOTEon 03-10-2018 ED NOTE HNO ID: [id number] thor: Iliana (Rn) Arlen Padilla: (none)Author Type: Registered NurseType: ED NotesFiled: 03/10/2018 3:32 AMNote Text: Discharge instructions per provider, the patient verbalizesunderstanding. No additional questions or concerns at this time. Patient Vital signs stable, no acute distress noted. Patient ambulatory out ofED. [facility] ED NOTE HNO ID: [id number] Author: Gayla CastRn) DUSTIN Hurtado Service: (none) Author Type: Registered Nurse Type: ED Notes Filed: 03/10/2018 2:46 AM Note Text: Clean catch urine specimen obtained and sent. [facility] ED NOTE HNO ID: [id number] Author: Gayla CastRn) DUSTIN Hurtado Service: (none) Author Type: Registered Nurse Type: ED Notes Filed: 03/10/2018 12:36 AM Note Text: Patient transported to [facility] with Tech. [facility] ED NOTE HNO ID: [id number] thor: Felipe (Medic) James Alarcon: (none)Author Type: Bar Waiter/Waitress and TechnicianType: ED NotesFiled: 03/09/2018 11:50 PMNote [...] ETC. Denies N/V, SOB. No othercomplaints noted. [facility] ED PROV NOTEon 03-10-2018 Protein mass conc HNO ID: [id number] thor: Francis Eagle: (none)Author Type: PhysicianType: ED Provider NotesFiled: 03/10/2018 6:42 AMNote Text:ED Provider NotePatient Name: Joesph NievesRN: [id number] DATE: 03/09/18HistoryPatient presents with:Chest PainPhysical 27-year-old female [...] 10 0321Chest wall painMDM / Disposition / [id number] female comes into the emergency department complaining [...] Normal sinus rhythmRate: 80Axis: Normal axisIntervals: Normal [place] intervalQRS Complex: NormalST Segment: Normal ST-T segmentsQT [...] Powellate: 03/10/2018Time: 6:40 AMAaron Pooja03/10/18 0642 [facility] EKGon 03-10-2018 Protein mass conc NAME : MARK CISSE ID : [id number] : 1990 Gender : FemaleRace : CaucasianORD : Procedure Date : Mar 09 2018 23:52:59Edit Date : Mar 10 2018 05:16:28 Diagnosis:Normal sinus rhythmNormal ECGNo previous ECGs availableConfirmed by DO SILVA AARON ([id number]), make up editor DEIRDRE ELIZONDO ([id number]) on 03/10/2018 5:16:22 AM Ventricular Rate : 80 BPMAtrial Rate : 80 BPMP-R Interval : 166 msQRS Duration : 92 msQ-T Interval : 394 msQTC Calculation(Bezet) : 454 msP [place] : 25 degreesR [place] : 19 degreesT [place] : 29 degrees Test Reason : Location : 302 : ED ED Overread By : DO SILVA AARONEdited By : Vitor ELIZONDOerred By : ,Acquired by : , [facility] High Sens Troponin Ton 03-10 High Sensitivity RONAK <6 Normal <12 [facility] Comment on above: Result Comment: When [...] MACE. High Sensitivity RONAK <6 Normal <12 [facility] Comment on above: Result Comment: When [...] Lipase enzyme act/vol 26 U/L Normal 16-61 [facility] PROGRESSon 03-10-2018 Protein mass conc HNO ID: [id number] thor: Mehreen Alves RtService: (none)Author Type: (none)Type: Progress NotesFiled: 03/10/2018 12:51 AMNote Text: Radiology Service Progress NotePATIENT NAME: Joesph NievesRN: [id number] OF SERVICE: March 10, 2018TIME: 12:50 AMPATIENT IDENTITY VERIFICATION COMPLETED USING TWO (2) METHODS: Patientconfirmed name verbally and ID band matches..PATIENT GENDER DATA: Female. status: : NoBreastfeeding status: NO.PATIENT RELEVANT IMPLANT DATA REVIEWED: YesRADIOLOGY DEPARTMENT: General X-ray: Exam(s) Completed: Chest X-RayPERIPHERAL IV DATA: Not applicableSIGNED BY: Mehreen Alves RtOct2017 12:50 AM [facility] XR CHEST 2V FRONTAL/LATon XR CHEST [...] displaced acute fractures are detected.IMPRESSION:No acute radiographic abnormality.Assessor ist: PSCB Transcribe Date/Time: Mar 10 2018 1:00ADictated by : VIK BURDICK MDThis examination was interpreted and the report reviewed and electronically signed by: VIK BURDICK MD on Mar 10 2018 1:01AM [id number] [facility] Vital Signs Date Time Vital Sign Value Performing Clinician Ranjit mtz 10-19-2023 08:47-0400 Body height 162.6 cm [facility] [employer] Work Phone: [facility] 10-19-2023 08:47-0400 Body mass index (BMI) [Ratio] 34.33 kg/m2 Will [employer] Work Phone: [facility] 10-19-2023 08:47-0400 Body weight 90.72 kg Mcgrew [employer] Work Phone: [facility] 05-31-2023 15:25-0500 Body height 160 cm Jarod Weeks MD Work Phone: [facility] [employer] [facility] 05-31-2023 15:25-0500 Body mass index (BMI) [Ratio] 37.74 kg/m2 Jarod Weeks MD Work Phone: [facility] [employer] [facility] 05-31-2023 15:25-0500 Body weight 96.62 kg Jarod Weeks MD Work Phone: [facility] 05-31-2023 15:25-0500 Diastolic blood pressure 78 mm[Hg] Jarod Weeks MD Work Phone: [facility] 05-31-2023 15:25-0500 Respiratory rate 18 /min Jarod Weeks MD Work Phone: [facility] 05-31-2023 15:25-0500 Systolic blood pressure 124 mm[Hg] Jarod Weeks MD Work Phone: [facility] Encounters Encounter Date Encounter Type Care Provider Facility Start: 11-03-2023 End: 11-03-2023 ambulatory DEIRDRE CHAVEZ Not Available Start: 10-19-2023 End: 10-19-2023 ambulatory WILL Gold LEIA Facility:[facility] Start: 10-19-2023 End: 10-19-2023 ambulatory Will Gold Leia DO Work Phone: [facility] Comment on above: Hypermobility of lillie nt (Primary Dx) Start: 10-19-2023 End: 10-19-2023 Telemedicine consultation with patient Will Dupree DO Work Phone: [facility] Start: 09-28-2023 End: 09-28-2023 ambulatory [facility] Start: 09-26-2023 End: 09-26-2023 ambulatory [facility] Start: 09-23-2023 End: 09-23-2023 ambulatory [facility] Start: 09-21-2023 End: 09-21-2023 ambulatory [facility] Start: 09-19-2023 End: 09-19-2023 [facility] Start: 09-10-2023 End: 09-11-2023 ambulatory BIA MACIEL [facility] Start: 09-08-2023 End: 09-09-2023 [facility] Start: 05-31-2023 End: 05-31-2023 ambulatory JAROD WEEKS [facility] Start: 05-31-2023 End: 05-31-2023 Office outpatient visit 25 minutes Jarod Weeks MD Work Phone: [facility] Comment on above: Greater trochanteric bursitis of both hips (Primary Dx); Fibromyalgia; Vitamin B 12 deficiency; Anserine bursitis Start: 11-23-2021 End: 11-23-[address] BIA MACIEL Facility:[facility] Start: 11-03-2021 End: 11-04-[address] JERAIME ATKINSON Facility:[facility] Start: 11-02-2021 End: 11-03-2021 ambulatory [...] 03-10-2018 End: 03-10-2018 Emergency department patient visit [facility] Plan of Treatment Date Care Activity Detail Author Start: 11-24-2031 DTaP,Tdap and Td Vaccines (2 - Tdap) DTaP,Tdap and Td Vaccines (2 - Tdap) [facility] Start: 11-24-2031 Urine microalbumin profile DTaP,Tdap,Td Vaccine (2 - Tdap) [facility] Start: 05-31-2024 Adult BMI Screening Adult BMI Screening [facility] [employer] Start: 02-17-2024 Tobacco Screening Tobacco Screening [facility] [employer] Start: 01-29-2024 Influenza vaccination Influenza Vaccine (Season Ended) [facility] Start: 09-08-2023 End: 09-08-2023 Patient encounter procedure 09/08/2023 11:30 AM EDT Office Visit [facility] [address] [place] [address] Jarod Weeks MD [address] [address] [facility] Start: 05-30-2023 Behavioral Health Screening Behavioral Health Screening [facility] Start: 01-28-2023 COVID-19 Vaccine () COVID-19 Vaccine () [facility] [employer] [facility] Start: 01-28-2023 Influenza vaccination Influenza Vaccine [facility] Start: 2022 Screening for malignant neoplasm of cervix HPV Testing [facility] Start: 2013 Screening for malignant neoplasm of cervix [facility] Start: 2011 Hepatitis B Vaccine (1 of 3 - 19+ 3-dose series) Hepatitis B Vaccine (1 of 3 - 19+ 3-dose series) [facility] Start: 2010 Adult BMI Follow Up Plan Adult BMI Follow Up Plan [facility] Start: 2010 Hepatitis C screening Hepatitis C Screening [facility] Start: 2010 HIV screening HIV Screening [facility] Start: 2004 Depression Screening Depression Screening [facility] Payers Date Payer Category Payer Unknown [id number] 2022 Private Health Insurance [id number] 2022 Private Health Insurance [id number] 1990 Unknown [id number] 2.16.84 [id number] 1992 Unknown [id number] 2.16.84 0.1.741807.3.579.2.593 1992 Unknown [id number] 2.16.84 0.1.093213.3.579.2.593 1992 Unknown [id number] 2.16.84 0.1.486547.3.579.2.593 1992 Unknown [id number] 2.16.84 0.1.785065.3.579.2.593 1992 Unknown [id number] 2.16.84 0.1.154166.3.579.2.593 1992 Unknown [id number] 2.16.84 0.1.343320.3.579.2.593 1992 Unknown [id number] 2.16.84 0.1.748422.3.579.2.593 1992 Unknown [id number] 2.16.84 0.1.043919.3.579.2.593 1992 Unknown [id number] 2.16.84 0.1.112754.3.579.2.1286 1992 Unknown [id number] 2.16.8 40.1.790660.3.579.2.1285 1992 Unknown [id number] 2.16.8 40.1.623066.3.579.2.1285 1992 Unknown [id number] 2.16.8 40.1.283585.3.579.2.1285 1992 Unknown [id number] 2.16.8 40.1.683577.3.579.2.1285 1992 Unknown [id number] 2.16.8 40.1.720038.3.579.2.1285 1992 Unknown [id number] 2.16.8 40.1.274173.3.579.2.128 1992 Unknown [id number] 2.16.8 40.1.079004.3.579.2.1285 1992 Unknown [id number] 2.16.8 40.1.509043.3.579.2.1285 1992 Unknown [id number] 2.16.84 0.1.894050.3.579.2.9 1959 Unknown [id number] Social History Date Type Detail Facility Start: 10-11-2022 End: 10-19-2023 Tobacco smoking status NHIS Never smoked tobacco [facility] Start: 10-11-2022 End: 10-19-2023 Tobacco use and exposure Smokeless tobacco non-user [facility] Start: 02-16-2023 Alcohol intake Current drinke r of alcohol (finding) [facility] Start: 02-16-2023 End: 10-19-2023 Alcohol intake [facility] Start: 02-16-2023 End: 10-19-2023 Tobacco use panel [facility] How hard is it for y ou to pay for the very basics like food, housing, medical care, and heating Somewhat hard [facility] In the past 12 month s, has lack of transportation kept you from medical appointments or from getting medications? No [facility] Start: 1990 Sex Assigned At Female P [facility] Start: 05-12-2023 Gender identity Identifies as female gender (finding) [facility] Start: 05-12-2023 Sexual orientation Choose not to disclose [facility] Start: 10-19-2023 Alcohol intake Ex-drinker (finding) [facility] NEGATED: Highlighted rowStart: WENDY History of tobacco use Passive smoker [facility] Medical Equipment Procedure Code Equipment Code Equipment Origin al Text Equipment Identifier Dates Use to inject Vi t B 12 intramuscular [id number] Start: 05-31-2023 Use to inject Vi t B 12 intramuscular [id number] Start: 09-21-2022 End: 05-31-2023 Progress note 10-19-2023 Note Date & Type Note Facility 10-19-2023 Note HNO ID: [id number] Author: WILL DUPREE, DO Service: ? Author Type: Physician Type: Progress Notes Filed: 10/19/2023 11:02 Note Text: Telemedicine Visit - Distance Health Virtual Visit Note Patient seen on Not [employer] Video Visit platform. Location of patient: [place] PCP: No primary care provider on file. History of Present Illness Joesph Neff is a 33 year old female who presents for a referral request. - Says her PCP was concerned for EDS and needs an internal referral to a vessel welder to be evaluated - Suspect EDS for [...] visit. Either the patient or their legal career representative has been informed of the risks [...] and complete. Electronically Signed: Will Dupree DO. [facility] Progress note 10-19-2023 Note Date & Type Note Facility 10-19-2023 Note HNO ID: [id number] Author: SHITAL ROY RN Service: ? Author Type: Registered Nurse Type: Progress Notes Filed: 10/19/2023 11:02 Note Text: Items addressed in this encounter: Other VV pre check, name and location verified, aware of tele health visit with A Leia Torres RN October 19, 2023 8:51 AM 8:51 AM [facility] History of Present illness Narrative 10-19-2023 Will Dupree, - 10/19/2023 10:27 AM Shital Valdovinos RN - 10/19/2023 8:51 AM EDT Note Date & Type Note Facility 10-19-2023 History of Presen t illness Narrative Telemedicine Visit - Distance Health Virtual Visit Note Patient seen on [employer] Video Visit platform. Location of patient: [place] PCP: No primary care provider on file. History of Present Illness Joesph Neff is a 33 year old female who presents for a referral request. - Says her PCP was concerned for EDS and needs an internal referral to a vessel welder to be evaluated - Suspect EDS for [...] visit. Either the patient or their legal career representative has been informed of the risks [...] AM 8:51 AM documented in this encounter [facility] History of Present illness Narrative 05-31-2023 Jarod Weeks MD - 05/31/2023 3:30 PM Ashely Weeks MD - 05/31/2023 3:30 PM EST Note Date & Type Note Facility 05-31-2023 History of Present illness Narrative Images from the original note were not included. [address] [address] Date of Service: 05/31/2023 Subjective: Joesph Neff [...] 08/23/2022 AMISHA IFA negative, complements normal, anti WINDER HAND 1.7 AI, vitamin-D 11.9 ng/mL normal, urinalysis [...] or corrected. Thank you for your understanding. [facility] Dr. Jarod Weeks MD [address] [place] [address], [address] [place] [address] Office: [phone] Rheumatology Procedure Site: Bilateral trochanteric bursa and [...] during the procedure documented in this encounter [facility] Evaluation note Note Date & Type Note Facility Evaluation note Diagnosis Greater trochanteric bursitis of both hips- Primary Fibromyalgia Unspecified myalgia and myositis Vitamin B 12 deficiency Other B-complex deficiencies Anserine bursitis documented in this encounter [facility] Evaluation note Note Date & Type Note Facility Evaluation note Diagnosis Hypermobility of joint- Primary Other joint derangement, not elsewhere classified, unspecified site documented in this encounter [facility] Instructions Note Date & Type Note Facility Instructions Not on filedocumented in this en counter [facility] mth sense Summary Purpose Family History No Family History [...] CONSULT TO MEDICAL GENETICS - GENERAL OFFICE/OUTPATIENT [facility] 60 MINUTES MEDICAL GENETICS COUNSELING EACH 30 MINUTES Will Dupree DO [address] [place] [address] [facility] [place] [address] Referral ID Status Reason Start Date Expiration Date Visits Requested Visits Authorized [id number] Pending Review PCP Requested Referral Auto-Generate d Referral 10/19/2023 10/18/2024 1 1 Additional Source Comments INFORMATION SOURCE (unrecogn ized section and content) DATE CREATED AUTHOR 04/12/2018 [facility] DATE CREATED AUTHOR AUTHOR'S ORGANIZ ATION 11/26/2021 [facility] DATE CREATED AUTHOR AUTHOR'S ORGANIZ ATION 06/03/2023 [facility] DATE CREATED AUTHOR AUTHOR'S ORGANIZ ATION 09/30/2023 [facility] DATE CREATED AUTHOR AUTHOR'S ORGANIZ ATION 10/21/2023 [facility] DATE CREATED AUTHOR AUTHOR'S ORGANIZ ATION 11/04/2023 [facility] [employer] Care Teams (unrecognized sec tion and content) Medical Claims Assistant Relationship Specialty Start Date End Date Bia Maciel MD [address] [phone] PCP - General Family Medicine 09/21/22 Source Comments (unrecognize d section and content) In the event this informatio n is protected by the Federal Confidentiality of Alcohol and Drug Abuse Patient Records regulations: The Federal rules restrict any use of the information to criminally investigate or prosecute any alcohol or drug abuse patient.[facility] Reason for Visit (unrecogniz ed section and content) Reason Comments Referral Request Cardiovascular Disease Specialist FOR RECORDS PERTAINING TO PATIENTS WHO [...] BE BASED ON THE PRIMARY CLINICAL RECORDS. [employer] [facility]. provides no warranty or guarantee of the accuracy or completeness of information in this document.
--- NOTE | 2024-01-02 14:59 | P.CN_ITS ---
Consult Note: HPI Data of Consult Patient: known to practice within the last 3 years Consult date: 01/02/24 Requesting Physician: Jefferson York MD Primary Care Provider: Sunny Maciel MD Consult Narrative Reason for consult: low back pain Narrative: 33yof who presents for assessment. notes persistence axial low back pain that is worsened with standing and walking. imaging reviewed, which is significant for facet arthropathy in lower lumbar spine. continues in a series of provider directed home exercises >6 weeks, without lasting benefit. uses lyrica and robaxin, with some benefit. denies adverse med side effects. cc:: CC: Jefferson York MD Review of Systems ROS Status of ROS 10 or more systems reviewed and unremark able except as noted in history and below [facility] Medical History (Updated 01/02/24 @ 15:00 by Jefferson York MD) Cholecystectomy planned Carpal tunnel syndrome ?G56.00 - Carpal tunnel syndrome, unspecified upper limb (ICD-10) Surgical History History of tonsillectomy and adenoidectomy ?Z90.89 - Acquired absence of other organs (ICD-10) Status post panniculectomy ?Z98.890 - Other specified postprocedural states (ICD-10) History of tubal ligation ?Z98.51 - Tubal ligation status (ICD-10) History of gastric bypass ?Z98.84 - Bariatric surgery status (ICD-10) Meds Home Medications and Allergies Home Medications ?Medication ?Instructions ?Recorded ?Confirmed ?Type dextroamphetamine-amphetamine 30 30 mg PO DAILY 02/25/23 12/26/23 History mg tablet (Adderall) pregabalin 165 mg tablet, extended 165 mg PO DAILY 02/25/23 12/26/23 History release 24 hr (Lyrica CR) acetaminophen 325 mg capsule 325 mg PO Q6H PRN pain 11/30/23 12/26/23 History (Tylenol) methocarbamol 750 mg tablet 750 mg PO DAILY 11/30/23 12/26/23 History diazepam 10 mg tablet (Valium) 10 mg PO ONCE 12/26/23 12/26/23 History Allergies Allergy/AdvReac Type Severity Reaction Status Date / Time gabapentin Allergy Unknown Unknown Verified 07/29/24 10:41 oxycodone [From Percocet] AdvReac Unknown Unknown Verified 12/26/23 10:41 Exam Narrative Exam Narrative: Psych-alert and oriented x 3. Attentive and appropriate, constitutionally normal, displays normal mood and affect per situation.? There are no obvious deficits in memory, reasoning, or intellect.? Skin-no obvious rashes, bruising, erythema noted to the patient's area of pain. Extremities- extremities are warm with minimal edema and palpable pulses. Lumbar-no significant tenderness to palpation noted in the lumbar spine and paraspinal musculature.? Pain is elicited with extension, and lateral rotation of the lumbar spine. Range of motion is slightly diminished with these motions due to pain. Facet loading maneuvers are positive bilaterally and do appear to be concordant with the patient's normal complaints of pain.? Coordination remains intact.? Gait remains non-antalgic. Assessment and Plan Assessment and Plan (1) Lumbar spondylosis: Plan 33yof who presents for assessment. failed conservative measures, as noted. imaging reviewed, as noted. given symptoms and imaging, prudent to attempt diagnostic bilateral l4-5, l5-s1 medial branch blocks under fluoroscopic guidance with intention of proceeding to radiofrequency ablation. she is in agreement. meds reviewed, no changes. follow up after procedure.
== END 2024-01-02 13:46 | disposition home or self-care (01) ==
LOC: PM 13:45
PROVIDERS: PCP Family Medicine; Visit Provider Anesthesiology
DX: M47.816 Spondylosis without myelopathy or radiculopathy, lumbar region (principal)
CPT/HCPCS: G0463

== ENCOUNTER 2024-01-16 09:55 | Day surgery (SDC) | payer OTHER, SELFPAY ==
--- OUTSIDE RECORDS SUMMARY | 2024-01-16 10:08 | XMS_ITS | CCD ---
Author Organization [facility] Care Team Providers Care Sales & Service Associate Name Role Phone SHIRAROSLYN GREERON Unavailable Unavailable MISC, DR GR Admitting Unavailable MISC, DR GR Attending Unavailable GABRIELLEY, DR AMEZQUITA Primary Care Unavailable MISC, DR GR Consulting Unavailable MISC, DR GR Admitting Unavailable MISC, DR GR Attending Unavailable GABRIELLEY, DR AMEZQUITA Primary Care Unavailable MISC, DR GR Consulting Unavailable GABRIELLEY, DR AMEZQUITA Admitting Unavailable GABRIELLEY, DR AMEZQUITA Attending Unavailable GABRIELLEY, DR AMEZQUITA Primary Care Unavailable HOYvonne, DR AMEZQUITA Consulting Unavailable OSEI, DR AMEZQUITA Primary Care Unavailable MICHELLE WHITNEY Admitting Unavailable DEVONTE, MICHELLE Attending Unavailable AUDREY ROWE Consulting Unavailable MICHELLE WHITNEY Consulting Unavailable OSEI, DR AMEZQUITA Primary Care Unavailable PAY, DR ODOM Admitting Unavailable PAY, DR ODOM Attending Unavailable GRECHNYTODD Consulting Unavailable OSEI, DR AMEZQUITA Admitting Unavailable GABRIELLEY, DR AMEZQUITA Attending Unavailable OSEI, DR AMEZQUITA Primary Care Unavailable OSEI, DR AMEZQUITA Consulting Unavailable WEST, DR SANDRA [...] Unavailable Bia Maciel MD Primary Care Provider [phone] JAROD WEEKS Attending Unavailable BIA MACIEL Referring Unavailable BIA MACIEL Primary Care Unavailable Unavailable Primary Care Provider UnavailWILL Espinosa Attending Unavailable DEIRDRE CHAVEZ Attending Unavailable HOY, BIA M Referring Unavailable Jaylen JC, Jefferson Hairston Attending Unavailable WEEKSJAROD Attending Unavailable HOY, BIA M Referring Unavailable HOY, BIA M Primary Care Unavailable WEEKSJAROD Christianson Referring Unavailable HOY, BIA M Primary Care Unavailable HOY, BIA M Referring Unavailable HOY, BIA M Primary Care Unavailable [facility], LAURENTHER NOLAN Referring Unavailabl e HOY, BIA M Primary Care Unavailable [facility], LAURENT OVIDIO Referring Unavailabl e HOY, BIA M Primary Care Unavailable [facility], LAURENT OVIDIO Referring Unavailabl e HOY, BIA M Primary Care Unavailable [facility], LAURENTHER GRAHAMOLE Referring Unavailabl e HOY, BIA M Primary Care Unavailable [facility], LAURENT OVIDIO Referring Unavailabl e HOY, BIA M Primary Care Unavailable [facility], LAURENT OVIDIO Referring Unavailabl e HOY, BIA M Primary Care Unavailable Allergies Allergy Classification Reported Allergen(s) Allergy Type Date of Onset Reaction(s) Facility (3 sources) acetaminophen / oxyCODONE; Translations: [OXYCODONE-ACETAM INOPHEN] Drug Allergy 8 [facility] Repository (1 source) Acetaminophen / oxyCODONE Drug Allergy 5 [facility] Repository (3 sources) oxyCODONE; Translations: [OXYCODONE HCL] Drug Allergy 2 Itching, GI Disturbance [facility] Medications Current Medications Medication Drug Class(es) [...] the morning. 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] Onset: 11-25-2021 Episodic Other [...] disease (2 sources) Encounter for immunization; Translations: [TOOLROOM KEEPER antibody positive] Onset: 11-25-2021 09-21-2022 Episodic Nausea [...] Test Name Value Interpretation Reference Range Facility CBC AND AUTO DIFFon 01-14-20 ABSOLUTE BASOPHIL 0.1 X10E9/L Normal 0.0-0.2 [facility] Comment on above: Performed By: #### C BCA, FEPR, 2275-08, 2283-12, 2132-01 #### [facility] ([id number]) [address] [place] [address] ABSOLUTE NEUTROPHIL 6.6 X10E9/L Normal 1.5-6.6 [facility] Comment on above: Performed By: #### C BCA, FEPR, 2275-08, 2283-12, 2132-01 #### [facility] ([id number]) [address], [address] [place] [address] Basophils/100 WBC (Bld) 0.6 % Normal [facility] Comment on above: Performed By: #### C BCA, FEPR, 2275-08, 2283-12, 2132-01 #### [facility] ([id number]) [address], [address] [place] [address] Eosinophils (Bld) [#/Vol] 0.2 10*3/uL Normal 0.0-0.4 [facility] Comment on above: Performed By: #### C BCA, FEPR, 2275-08, 2283-12, 2132-01 #### [facility] ([id number]) [address] [facility] [address] [place] [address] Eosinophils/100 WBC (Bld) 1.7 % Normal [facility] Comment on above: Performed By: #### C BCA, FEPR, 2275-08, 2283-12, 2132-01 #### [facility] ([id number]) [address] [place] [address] Erythrocyte distribution width (RBC) [Ratio] 13.7 % Normal 11.5-15.0 [facility] Comment on above: Performed By: #### C BCA, FEPR, 2275-08, 2283-12, 2132-01 #### [facility] ([id number]) [address] [place] [address] Hematocrit (Bld) [Volume fraction] 40.3 % Normal 35-47 [facility] Comment on above: Performed By: #### C BCA, FEPR, 2275-08, 2283-12, 2132-01 #### [facility] ([id number]) [address] [place] [address] Hemoglobin (Bld) [Mass/Vol] 13.9 g/dL Normal 11.7-15.5 [facility] Comment on above: Performed By: #### C BCA, FEPR, 2275-08, 2283-12, 2132-01 #### [facility] ([id number]) [address] [place] [address] Lymphocytes (Bld) [#/Vol] 2.1 10*3/uL Normal 1.0-3.5 [facility] Comment on above: Performed By: #### C BCA, FEPR, 2275-08, 2283-12, 2132-01 #### [facility] ([id number]) [address], [address] [place] [address] Lymphocytes/100 WBC (Bld) 21.2 % Normal [facility] Comment on above: Performed By: #### C BCA, FEPR, 2275-08, 2283-12, 2132-01 #### [facility] ([id number]) [address], [address] [place] [address] MCH (RBC) [Entitic mass] 32.6 pg Normal 27-34 [facility] Comment on above: Performed By: #### Raul BCA, FEPR, 2275-08, 2283-12, 2132-01 #### [facility] ([id number]) [address], [address] [place] [address] MCHC (RBC) [Mass/Vol] 34.4 g/dL Normal 32-36 [facility] Comment on above: Performed By: #### C BCA, FEPR, 2275-08, 2283-12, 2132-01 #### [facility] ([id number]) [address], [facility] [address] [place] [address] MCV (RBC) [Entitic vol] 95 fL Normal 80-100 [facility] Comment on above: Performed By: #### C BCA, FEPR, 2275-08, 2283-12, 2132-01 #### [facility] ([id number]) [address], [address] [place] [address] Monocytes (Bld) [#/Vol] 0.9 10*3/uL Normal 0-0.9 [facility] Comment on above: Performed By: #### C BCA, FEPR, 2275-08, 2283-8, 2132-01 #### [facility] ([id number]) [address], [address] [place] [address] Monocytes/100 WBC (Bld) 9.1 % Normal [facility] Comment on above: Performed By: #### C BCA, FEPR, 6-4, 2283-8, 2132-01 #### [facility] ([id number]) [address], [address] [place] [address] Neutrophils/100 WBC (Bld) 67.4 % Normal [facility] Comment on above: Performed By: #### C BCA, FEPR, 2275-4, 2283-, 2132-01 #### [facility] ([id number]) [address], [address] [place] [address] Platelet mean volume (Bld) [Entitic vol] 7.2 fL Normal 7-12 [facility] Comment on above: Performed By: #### C BCA, FEPR, 2275-4, 2283-8, 2132-01 #### [facility] ([id number]) [address], [address] [place] [address] Platelets (Bld) [#/Vol] 372 10*3/uL Normal 150-450 [facility] Comment on above: Performed By: #### C BCA, FEPR, 2275-4, 2283-12, 2132-01 #### [facility] ([id number]) [address], [address] [place] [address] RBC COUNT 4.26 X10E12/L Normal 3.80-5.20 [facility] Comment on above: Performed By: #### C BCA, FEPR, 6-4, 2283-8, 2132-01 #### [facility] ([id number]) [address], [address] [place] [address] WBC (Bld) [#/Vol] 9.7 10*3/uL Normal 4.0-11.0 [facility] Comment on above: Performed By: #### C BCA, FEPR, 6-4, 2283-8, 2132-01 #### [facility] ([id number]) [address], [address] [place] [address] FERRITINon 01-14-2024 Ferritin [Mass/Vol] 58 ng/mL Normal 11-307 [facility] Comment on above: Performed By: #### C BCA, FEPR, 2275-4, 2283-8, 2132-01 #### [facility] ([id number]) [address], [address] [place] [address] Folate [Mass/Vol]on 01-14-20 24 FOLIC ACID 7.9 ng/mL Normal >5.8 [facility] Comment on above: Result Comment: NEW REFERENCE RANGE Performed By: #### C BCA, FEPR, 2275-4, 2283-8, 2132-01 #### [facility] ([id number]) [address], [address] [place] [address] IRON PROFILEon 01-14-2024 Iron [Mass/Vol] 147 ug/dL Normal 50-170 [facility] Comment on above: Performed By: #### C BCA, FEPR, 2275-4, 8, 2132-01 #### [facility] ([id number]) [address], [address] [place] [address] IRON BINDING 370 ug/dL Normal 250-425 [facility] Comment on above: Performed By: #### C BCA, FEPR, 6-4, 2283-8, 2132-01 #### [facility] ([id number]) [address], [address] [place] [address] IRON SATURATION 40 % SATURATION Normal 15-50 [facility] Comment on above: Performed By: #### C BCA, FEPR, 2276-4, 2283-12, 2132-01 #### [facility] ([id number]) [address], [address] [place] [address] VITAMIN B12on 01-14-2024 Cobalamin (Vitamin B12) [Mass/Vol] 167 pg/mL Low 180-914 [facility] Comment on above: Performed By: #### C BCA, FEPR, 2275-08, 2132-01, 2283-12 #### [facility] ([id number]) [address], [address] [place] [address] XR HIPS BILAT W OR WO PELVIS [...] Hou MD on 09/13/2023 9:36 PM Normal [facility] CBC AND AUTO DIFFon 09-10-19 24 ABSOLUTE BASOPHIL 0.1 X10E9/L Normal 0.0-0.2 [facility] Comment on above: Performed By: #### C BCA, FEPR, 2275-08, 2132-01, 2283-12 #### [facility] ([id number]) [address], [address] [place] [address] ABSOLUTE NEUTROPHIL 3.8 X10E9/L Normal 1.5-6.6 [facility] Comment on above: Performed By: #### C BCA, FEPR, 2275-08, 2132-01, 2283-12 #### [facility] ([id number]) [address], [address] [place] [address] Basophils/100 WBC (Bld) 0.9 % Normal [facility] Comment on above: Performed By: #### C BCA, FEPR, 2275-08, 2132-01, 2283-12 #### [facility] ([id number]) [address], [address] [place] [address] Eosinophils (Bld) [#/Vol] 0.1 10*3/uL Normal 0.0-0.4 [facility] Comment on above: Performed By: #### C BCA, FEPR, 2275-08, 2132-01, 2283-12 #### [facility] ([id number]) [address], [address] [place] [address] Eosinophils/100 WBC (Bld) 1.5 % Normal [facility] Comment on above: Performed By: #### C BCA, FEPR, 2275-08, 2132-01, 2283-12 #### [facility] ([id number]) [address], [address] [place] [address] Erythrocyte distribution width (RBC) [Ratio] 13.0 % Normal 11.5-15.0 [facility] Comment on above: Performed By: #### C BCA, FEPR, 2275-08, 2132-01, 2283-12 #### [facility] ([id number]) [address], [address] [place] [address] Hematocrit (Bld) [Volume fraction] 38.3 % Normal 35-47 [facility] Comment on above: Performed By: #### C BCA, FEPR, 2275-08, 2132-01, 2283-12 #### [facility] ([id number]) [address], [address] [place] [address] Hemoglobin (Bld) [Mass/Vol] 13.0 g/dL Normal 11.7-15.5 [facility] Comment on above: Performed By: #### C BCA, FEPR, 2275-08, 2132-01, 2283-12 #### [facility] ([id number]) [address], [address] [place] [address] Lymphocytes (Bld) [#/Vol] 1.5 10*3/uL Normal 1.0-3.5 [facility] Comment on above: Performed By: #### C BCA, FEPR, 2275-08, 2132-01, 2283-12 #### [facility] ([id number]) [address], [address] [place] [address] Lymphocytes/100 WBC (Bld) 25.0 % Normal [facility] Comment on above: Performed By: #### C BCA, FEPR, 2275-08, 2132-01, 2283-12 #### [facility] ([id number]) [address], [address] [place] [address] MCH (RBC) [Entitic mass] 31.4 pg Normal 27-34 [facility] Comment on above: Performed By: #### C BCA, FEPR, 2275-08, 2132-01, 2283-12 #### [facility] ([id number]) [address], [address] [place] [address] MCHC (RBC) [Mass/Vol] 34.1 g/dL Normal 32-36 [facility] Comment on above: Performed By: #### C BCA, FEPR, 2275-08, 2132-01, 2283-12 #### [facility] ([id number]) [address], [address] [place] [address] MCV (RBC) [Entitic vol] 92 fL Normal 80-100 [facility] Comment on above: Performed By: #### C BCA, FEPR, 2275-08, 2132-01, 2283-12 #### [facility] ([id number]) [address], [address] [place] [address] Monocytes (Bld) [#/Vol] 0.5 10*3/uL Normal 0-0.9 [facility] Comment on above: Performed By: #### C BCA, FEPR, 2275-08, 2132-01, 2283-12 #### [facility] ([id number]) [address], [address] [place] [address] Monocytes/100 WBC (Bld) 8.6 % Normal [facility] Comment on above: Performed By: #### C BCA, FEPR, 2275-08, 2132-01, 2283-12 #### [facility] ([id number]) [address], [address] [place] [address] Neutrophils/100 WBC (Bld) 64.0 % Normal [facility] Comment on above: Performed By: #### C BCA, FEPR, 2275-08, 2132-01, 2283-12 #### [facility] ([id number]) [address], [address] [place] [address] Platelet mean volume (Bld) [Entitic vol] 7.6 fL Normal 7-12 [facility] Comment on above: Performed By: #### C BCA, FEPR, 2275-08, 2132-01, 2283-12 #### [facility] ([id number]) [address], [address] [place] [address] Platelets (Bld) [#/Vol] 408 10*3/uL Normal 150-450 [facility] Comment on above: Performed By: #### C BCA, FEPR, 2275-08, 2132-01, 2283-12 #### [facility] ([id number]) [address], [address] [place] [address] RBC COUNT 4.16 X10E12/L Normal 3.80-5.20 [facility] Comment on above: Performed By: #### C BCA, FEPR, 2275-08, 2132-01, 2283-12 #### [facility] ([id number]) [address], [address] [place] [address] WBC (Bld) [#/Vol] 6.0 10*3/uL Normal 4.0-11.0 [facility] Comment on above: Performed By: #### C BCA, FEPR, 2275-08, 2132-01, 2283-12 #### [facility] ([id number]) [address], [address] [place] [address] FERRITINon 09-10-2023 Ferritin [Mass/Vol] 10 ng/mL Low 11-307 [facility] Comment on above: Performed By: #### C BCA, FEPR, 2275-08, 2132-01, 2283-12 #### [facility] ([id number]) [address], [address] [place] [address] Folate [Mass/Vol]on 09-10-19 24 FOLIC ACID 10.9 ng/mL Normal >5.8 [facility] Comment on above: Result Comment: NEW REFERENCE RANGE Performed By: #### C BCA, FEPR, 2275-08, 2132-01, 2283-12 #### [facility] ([id number]) [address], [address] [place] [address] IRON PROFILEon 09-10-2023 Iron [Mass/Vol] 92 ug/dL Normal 50-170 [facility] Comment on above: Performed By: #### C BCA, FEPR, 2275-08, 2132-01, 2283-12 #### [facility] ([id number]) [address], [address] [place] [address] IRON BINDING 421 ug/dL Normal 250-425 [facility] Comment on above: Performed By: #### C BCA, FEPR, 2275-08, 2132-9, 2284-8 #### [facility] ([id number]) [address] [facility] [address] [place] [address] IRON SATURATION 22 % SATURATION Normal 15-50 [facility] Comment on above: Performed By: #### C BCA, FEPR, 2276-4, 2132-9, 2284-8 #### [facility] ([id number]) [address] [address], [address] [place] [address] VITAMIN B12on 09-10-2023 Cobalamin (Vitamin B12) [Mass/Vol] 195 pg/mL Normal 180-914 [facility] Comment on above: Performed By: #### C BCA, FEPR, 2276-4, 2132-9, 2284-8 #### [facility] ([id number]) [address] [facility] [address] [address], [address] [place] [address] [employer] ANITBODY TESTon 022 [employer] Antibodies <1.0 Normal [facility] Comment on above: Result Comment: Refe [...] be useful to follow treatment. References: 1. Amos S et al. J Autoimmunity 2014;52:90-100. 2. Luzmaria DUVAL et al. PNAS 2013;110(21);53503-09028. 3. Joo Escudero et al. Neurology 2006;67:505-507. This test was developed and its performance characteristics determined by [employer]. It has not been cleared or approved by the Food and Drug Administration. Performed By: #### M ERIK #### [facility] [address] [place] [address] Dr. Evens Bowden ACETYLCHOLINE RECEPTOR AB AL OFILEon 11-10-2021 AChR Binding Abs, Serum <0.03 Normal 0.00-0.24 [facility] Comment on above: Result Comment: Nega tive: 0.00 - 0.24 Borderline: 0.25 - 0.40 Positive: >0.40 Performed By: #### JULIA GARCIA UMICRO #### [facility] [address] [place] [address] Patria Mis AChR Blocking Abs, Serum 10 % Normal 0-25 [facility] Comment on above: Result Comment: Nega tive: 0 - 25 Borderline: 26 - 30 Positive: >30 Performed By: #### JULIA GARCIA UMICRO #### [facility] [address] [place] [address] Patria Mis AChR Modulating Ab CANRGT Normal [facility] Comment on above: Result Comment: Test not performed. Unable to perform test due to current unavailability of reagents or discontinuation of test. Negative: <21 Equivocal: 21 - 25 Positive: >25 Effective March 25, 2021, test 908311 AChR Modulating Abs, Serum was made non-orderable due to an ongoing reagent issue. Specimens are stored frozen and can be referenced to [facility] to provide an AChR Modulating Ab result. Please contact [employer] Customer Service to add on [phone] Acetylcholine Receptor Modulating Antibody, if warranted. Performed By: #### JULIA GARCIA UMICRO #### [facility] [address] [place], [place] [address] Patria Mis LYME DISEASE AB EIA W REFLEX on 11-04-2021 Lyme Total Antibody,EIA Negative Normal Negative [facility] Comment on above: Result Comment: Lyme Antibody Negative No laboratory evidence of infection with B. burgdorferi (Lyme disease). Negative results may occur in patients recently infected (greater than or equal to 14 days) with B. burgdorferi. If recent infection is suspected, repeat testing on a new sample collected in 7 to 14 days is recommended. Performed By: #### JULIA GARCIA UMICRO #### [facility] [address] [place] [address] Patria Abebe AMISHA EIA W/REFLEX 5 BIOMARKER Son 11-03-2021 AMISHA Direct Positive Abnormal Negative [facility] Comment on above: Performed By: #### JULIA GARCIA UMICRO #### [facility] [address] [address] Patria Abebe Anti-DNA (DS) Ab Qn <1 Normal 0-9 [facility] Comment on above: Result Comment: Nega tive <5 Equivocal 5 - 9 Positive >9 Performed By: #### JULIA GARCIA UMICRO #### [facility] [address] [address] Patria Abebe TOOLROOM KEEPER Antibodies 2.4 AI Critically high 0.0-0.9 [facility] Comment on above: Performed By: #### JULIA GARCIA UMICRO #### [facility] [address] [address] Patria Abebe SEE BELOW: Comment Normal [facility] Comment on above: Result Comment: Auto [...] Sm (anti-Hunter) SLE 15 - 30% --------- TOOLROOM KEEPER Mixed Connective Tissue Disease 95% (U1 nRNP, SLE 30 - 50% anti-ribonucleoprotein) Polymyositis and/or Dermatomyositis 20% --------- Scl-70 (antiDNA Scleroderma (diffuse) 20 - 35% topoisomerase) Crest 13% --------- Kristie-1 Polymyositis and/or Dermatomyositis 20 - 40% --------- Centromere B Scleroderma - Crest variant 80% Performed By: #### JULIA GARCIA UMICRO #### [facility] [address] [place] [address] Patria Mis Sjogren's Anti-SS-A <0.2 Normal 0.0-0.9 [facility] Comment on above: Performed By: #### JULIA GARCIA UMICRO #### [facility] [address] [place] [address] Patria Mis Sjogren's Anti-SS-B <0.2 Normal 0.0-0.9 [facility] Comment on above: Performed By: #### JULIA GARCIA UMICRO #### [facility] [address] [place] [address] Patria Mis Hunter Antibodies <0.2 Normal 0.0-0.9 [facility] Comment on above: Performed By: #### JULIA GARCIA UMICRO #### [facility] [address] [place] [address] Patria Abebe CMV AB, IGGon 11-03-2021 Cytomegalovirus (CMV) Ab, IgG 5.70 U/mL Critically high 0.00-0.59 [facility] Comment on above: Result Comment: Nega tive <0.60 Equivocal 0.60 - 0.69 Positive >0.69 Performed By: #### JUILA GARCIA UMICRO #### [facility] [address] [place] [address] Patria Abebe SHIRA-MOTA VIRUS (EBV) AB PROFILEon 11-03-2021 EBV Ab VCA, IgG 122.0 U/mL Critically high 0.0-17.9 [facility] Comment on above: Result Comment: Nega tive <18.0 Equivocal 18.0 - 21.9 Positive >21.9 Performed By: #### Hugo VALENCIA #### [facility] [address] [place] [address] Dr. Evens Bowden EBV Ab VCA, IgM <36.0 Normal 0.0-35.9 [facility] Comment on above: Result Comment: Nega tive <36.0 Equivocal 36.0 - 43.9 Positive >43.9 Performed By: #### Hugo VALENCIA #### [facility] [address] [address] [address] Evens Bowden EBV Nuclear Antigen Ab, IgG 244.0 U/mL Critically high 0.0-17.9 [facility] Comment on above: Result Comment: Nega tive <18.0 Equivocal 18.0 - 21.9 Positive >21.9 Performed By: #### Hugo VALENCIA #### [facility] [address] [place] [address] Dr. Evens Bowden Interpretation: Comment Normal [facility] Comment on above: Result Comment: EBV Interpretation [...] EBNA. Performed By: #### Hugo VALENCIA #### [facility] [address] [place] [address] Dr. Evens oBwden RHEUMATOID FACTORon 11-04-19 RA Latex Turbid. <10.0 Normal <14.0 [facility] Comment on above: Performed By: #### Hugo VALENCIA #### [facility] [address] [place] [address] Dr. Evens Bowden CPKon 11-02-2021 CK [Catalytic activity/Vol] 150 U/L Normal 26-192 [facility] Comment on above: Performed By: #### Raul K #### [facility] [address] [place] [address] Dr. Evens Bowden MRI BRAIN WO W CONon MRI BRAIN WO W CON EXAMINATION: MRI [...] by: SANDRA VERDIN Date: 2021-10-01 13:31 Normal [facility] MRI CSPINE WO W CONon 2021 [...] SANDRA VERDIN Date: 2021-10-01 13:52 Normal [facility] INSULINon 09-11-2021 Insulin 5.2 uIU/mL Normal 2.6-24.9 [facility] Comment on above: Performed By: #### P JULIA MURRAY UMICRO #### [facility] [facility] [address] [address] Patria Abebe CBC AUTO DIFFon 09-10-2021 BASO # 0.0 103/ul Normal 0.0-0.1 [facility] Comment on above: Performed By: #### C BC #### [facility] [address] [address] [address] Evens Bowden Basophils/100 WBC (Bld) 0.7 % Normal 0.2-2.0 [facility] Comment on above: Performed By: #### C BC #### [facility] [address] [place] [address] Dr. Evens Bowden EO # 0.1 103/ul Normal 0.0-0.7 [facility] Comment on above: Performed By: #### C BC #### [facility] [address] [place] [address] Dr. Evens Bowden Eosinophils/100 WBC (Bld) 2.6 % Normal 0.9-7.0 [facility] Comment on above: Performed By: #### C BC #### [facility] [address] [place] [address] Dr. Evens Bowden Erythrocyte distribution width (RBC) [Ratio] 13.7 % Normal 11.0-15.0 [facility] Comment on above: Performed By: #### C BC #### [facility] [address] [place] [address] Dr. Evens Bowden Hematocrit (Bld) [Volume fraction] 33.2 % Critically low 36.0-48.0 [facility] Comment on above: Performed By: #### C BC #### [facility] [address] [place] [address] Dr. Evens Bowden Hemoglobin (Bld) [Mass/Vol] 10.4 g/dL Critically low 12.0-16.0 [facility] Comment on above: Performed By: #### C BC #### [facility] [address] [place] [address] Dr. Evens Bowden IG # 0.02 10e3/ul Normal 0.00-0.03 [facility] Comment on above: Performed By: #### C BC #### [facility] [address] [place] [address] Dr. Evens Bowden IG % 0.4 % Normal 0.0-0.5 [facility] Comment on above: Performed By: #### C BC #### [facility] [address] [place] [address] Dr. Evens Bowden LYMPH # 2.0 103/ul Normal 1.2-3.8 [facility] Comment on above: Performed By: #### C BC #### [facility] [address] [place] [address] Dr. Evens Bowden Lymphocytes/100 WBC (Bld) 37.7 % Normal 20.5-60.0 [facility] Comment on above: Performed By: #### C BC #### [facility] [address] [place] [address] Dr. Evens Bowden MANUAL DIFF REQ NO Normal [facility] Comment on above: Performed By: #### C BC #### [facility] [address] [place] [address] Dr. Evens Bowden MCH (RBC) [Entitic mass] 27.2 pg Normal 26.7-34.0 [facility] Comment on above: Performed By: #### C BC #### [facility] [address] [place] [address] Dr. Evens Bowden MCHC (RBC) [Mass/Vol] 31.3 g/dL Normal 29.9-35.2 [facility] Comment on above: Performed By: #### C BC #### [facility] [address] [place] [address] Dr. Evens Bowden MCV (RBC) [Entitic vol] 86.9 fL Normal 81.0-99.0 [facility] Comment on above: Performed By: #### C BC #### [facility] [address] [place] [address] Dr. Evens Bowden MONO # 0.4 103/ul Normal 0.3-0.8 [facility] Comment on above: Performed By: #### C BC #### [facility] [address] [place] [address] Dr. Evens Bowden Monocytes/100 WBC (Bld) 7.1 % Normal 1.7-12.0 [facility] Comment on above: Performed By: #### C BC #### [facility] [address] [place] [address] Dr. Evens Bowden NEUT # 2.8 103/ul Normal 1.4-6.5 [facility] Comment on above: Performed By: #### C BC #### [facility] [address] [place] [address] Dr. Evens Bowden Neutrophils/100 WBC (Bld) 51.5 % Normal 43.0-75.0 [facility] Comment on above: Performed By: #### C BC #### [facility] [address] [place] [address] Dr. Evens Bowden Platelet mean volume (Bld) [Entitic vol] 8.6 fL Critically low 9.5-13.5 [facility] Comment on above: Performed By: #### C BC #### [facility] [address] [place] [address] Dr. vEens Bowden PLT 428 103/ul Normal 150-450 [facility] Comment on above: Performed By: #### C BC #### [facility] [address] [place] [address] Dr. Evens Bowden RBC 3.82 106/ul Critically low 4.20-5.40 [facility] Comment on above: Performed By: #### C BC #### [facility] [address] [place] [address] Dr. Evens Bowden WBC 5.4 103/ul Normal 4.0-11.0 [facility] Comment on above: Performed By: #### C BC #### [facility] [address] [place] [address] Dr. Evens Bowden CRPon 09-10-2021 CRP [Mass/Vol] mg/L Normal <=1.0 [facility] Comment on above: Performed By: #### C BC #### [facility] [address] [address] [address] Evens Bowden FREE THYROXINE INDEX T7on FTI 2.52 Normal [facility] Comment on above: Performed By: #### C BC #### [facility] [address] [address] [address] Evens Bowden T3U 35.0 % Normal 23.5-40.5 [facility] Comment on above: Performed By: #### C BC #### [facility] [address] [address] [address] Evens Bowden T4 [Mass/Vol] 7.20 ug/dL Normal 5.53-11.00 [facility] Comment on above: Performed By: #### C BC #### [facility] [address] [address] [address] Evens Bowden GLYCOHEMOGLOBIN A1Con 2021 ADA RECOMMENDATION ADA THERAPEUTIC TARG ET 6.0 - 7.0 ACTION SUGGESTED > 7.0 Normal [facility] Comment on above: Performed By: #### P JULIA MURRAY UMICRO #### [facility] [address] [address] Patria Mis Glucose [Mass/Vol] 117 mg/dL Normal [facility] Comment on above: Performed By: #### JULIA GARCIA UMICRO #### [facility] [address] [place] [address] Patria Mis HbA1c (Bld) [Mass fraction] 5.7 % Normal <=6.0 [facility] Comment on above: Performed By: #### JULIA GARCIA UMICRO #### [facility] [address] [place] [address] Patria Mis IRONon 09-10-2021 Iron [Mass/Vol] 46.0 ug/dL Normal 37.0-170.0 [facility] Comment on above: Performed By: #### I MULUGETA PEARSON #### [facility] [address] [address] [address] Evens Bowden LIPID PROFILEon 09-10-2021 CHOL-HDL RATIO NORM SEE BELOW Normal [facility] Comment on above: Result Comment: 3.3 - 4.4 LOW RISK 4.4 - 7.1 AVERAGE RISK 7.1 - 11.0 MODERATE RISK >11.0 HIGH RISK Performed By: #### C MP, TSH, T7, LIPID, CRP #### [facility] [address] [address] [address] Evens Bowden Cholesterol [Mass/Vol] 130 mg/dL Normal <=200 [facility] Comment on above: Performed By: #### C MP, TSH, T7, LIPID, CRP #### [facility] [address] [address] [address] Evens Bowden Cholesterol in HDL [Mass/Vol] 53 mg/dL Normal 40-60 [facility] Comment on above: Performed By: #### C MP, TSH, T7, LIPID, CRP #### [facility] [address] [address] [address] Evens Bowden Cholesterol in LDL [Mass/Vol] 69.2 mg/dL Normal [facility] Comment on above: Performed By: #### C MP, TSH, T7, LIPID, CRP #### [facility] [address] [address] [address] Evens Bowden Cholesterol.total/C holesterol in HDL [Mass ratio] 2.5 {ratio} Normal [facility] Comment on above: Performed By: #### C MP, TSH, T7, LIPID, CRP #### [facility] [address] [address] [address] Evens Bowden HDL NORMAL > or = 60 mg/dl - LO W CARDIOVASCULAR RISK <40 mg/dl - HIGH CARDIOVASCULAR RISK Normal [facility] Comment on above: Performed By: #### C MP, TSH, T7, LIPID, CRP #### [facility] [address] [address] [address] Evens Bowden LDL CALC NORMAL SEE BELOW Normal [facility] Comment on above: Result Comment: <100 mg/dl OPTIMAL 100 - 129 mg/dl NEAR OR ABOVE OPTIMAL 130 - 159 mg/dl BORDERLINE HIGH 160 - 189 mg/dl HIGH >190 mg/dl VERY HIGH Performed By: #### C MP, TSH, T7, LIPID, CRP #### [facility] [address] [address] [address] Evens Bowden Triglyceride [Mass/Vol] 39 mg/dL Normal <=150 [facility] Comment on above: Performed By: #### C MP, TSH, T7, LIPID, CRP #### [facility] [address] [address] [address] Evens Bowden VLDL CALC 7.8 mg/dL Normal [facility] Comment on above: Performed By: #### C MP, TSH, T7, LIPID, CRP #### [facility] [address] [address] [address] Evens Bowden PROF 14(COMP METB)on 022 Albumin [Mass/Vol] 4.0 g/dL Normal 3.4-5.0 [facility] Comment on above: Performed By: #### C MP, TSH, T7, LIPID, CRP #### [facility] [address] [address] [address] Evens Bowden Albumin/Globulin [Mass ratio] 1.1 {ratio} Normal [facility] Comment on above: Performed By: #### C MP, TSH, T7, LIPID, CRP #### [facility] [address] [address] [address] Evens Bowden ALP [Catalytic activity/Vol] 84 U/L Normal 46-116 [facility] Comment on above: Performed By: #### C MP, TSH, T7, LIPID, CRP #### [facility] [address] [address] [address] Evens Bowden ALT [Catalytic activity/Vol] 33 U/L Normal 14-59 [facility] Comment on above: Performed By: #### C MP, TSH, T7, LIPID, CRP #### [facility] [address] [address] [address] Evens Bowden Anion gap [Moles/Vol] 12.1 mmol/L Normal [facility] Comment on above: Performed By: #### C MP, TSH, T7, LIPID, CRP #### [facility] [address] [address] [address] Evens Bowden AST [Catalytic activity/Vol] 18 U/L Normal 15-37 [facility] Comment on above: Performed By: #### C MP, TSH, T7, LIPID, CRP #### [facility] [address] [place] [address] Dr. Evens Bowden Bilirubin [Mass/Vol] 0.5 mg/dL Normal 0.2-1.3 [facility] Comment on above: Performed By: #### C MP, TSH, T7, LIPID, CRP #### [facility] [address] [place] [address] Dr. Evens Bowden Calcium [Mass/Vol] 8.2 mg/dL Critically low 8.5-10.1 [facility] Comment on above: Performed By: #### C MP, TSH, T7, LIPID, CRP #### [facility] [address] [place] [address] Dr. Evens Bowden Chloride [Moles/Vol] 105 mmol/L Normal 98-107 [facility] Comment on above: Performed By: #### C MP, TSH, T7, LIPID, CRP #### [facility] [address] [place] [address] Dr. Evens Bowden CO2 [Moles/Vol] 26.3 mmol/L Normal 22.0-30.0 [facility] Comment on above: Performed By: #### C MP, TSH, T7, LIPID, CRP #### [facility] [address] [place] [address] Dr. Evens Bowden Creatinine [Mass/Vol] 0.62 mg/dL Normal 0.52-1.04 [facility] Comment on above: Performed By: #### C MP, TSH, T7, LIPID, CRP #### [facility] [address] [place] [address] Dr. Evens Bowden EGFR-AF AFGHAN >60 Normal >=60 [facility] Comment on above: Performed By: #### C MP, TSH, T7, LIPID, CRP #### [facility] [address] [place] [address] Dr. Evens Bowden EGFR-NON AF AFGHAN >60 Normal >=60 [facility] Comment on above: Performed By: #### C MP, TSH, T7, LIPID, CRP #### [facility] [address] [place] [address] Dr. Evens Bowden Globulin (S) [Mass/Vol] 3.5 g/dL Normal [facility] Comment on above: Performed By: #### C MP, TSH, T7, LIPID, CRP #### [facility] [address] [place] [address] Dr. Evens Bowden Glucose [Mass/Vol] 90 mg/dL Normal 74-106 [facility] Comment on above: Performed By: #### C MP, TSH, T7, LIPID, CRP #### [facility] [address] [place] [address] Dr. Evens Bowden Potassium [Moles/Vol] 4.4 mmol/L Normal 3.4-5.0 [facility] Comment on above: Performed By: #### C MP, TSH, T7, LIPID, CRP #### [facility] [address] [place] [address] Dr. Evens Bowden Protein [Mass/Vol] 7.5 g/dL Normal 6.1-8.2 [facility] Comment on above: Performed By: #### C MP, TSH, T7, LIPID, CRP #### [facility] [address] [place] [address] Dr. Evens Bowden Sodium [Moles/Vol] 139 mmol/L Normal 137-145 [facility] Comment on above: Performed By: #### C MP, TSH, T7, LIPID, CRP #### [facility] [address] [place] [address] Dr. Evens Bowden Urea nitrogen [Mass/Vol] 7.0 mg/dL Normal 7.0-18.0 [facility] Comment on above: Performed By: #### C MP, TSH, T7, LIPID, CRP #### [facility] [address] [place] [address] Dr. Evens Bowden Urea nitrogen/Creatinine [Mass ratio] 11.3 mg/mg Normal [facility] Comment on above: Performed By: #### C MP, TSH, T7, LIPID, CRP #### [facility] [address] [place] [address] Dr. Evens Bowden SED RATE WESTERGRENon 2021 SED RATE 6 mm/hr Normal <=20 [facility] Comment on above: Performed By: #### M USKAB #### [facility] [address] [place] [address] Dr. Evens Bowden TSHon 09-10-2021 TSH 1.205 uIU/mL Normal 0.470-4.680 [facility] Comment on above: Performed By: #### C BC #### [facility] [address] [place] [address] Dr. Evens Bowden TSH RANGE SEE BELOW Normal [facility] Comment on above: Result Comment: <0.3 4 UIU/ml HYPERTHYROID 0.34-5.60 UIU/ml EUTHYROID >5.60 UIU/ml HYPOTHYROID Performed By: #### C BC #### [facility] [address] [place] [address] Dr. Evens Bowden VITAMIN D 25 OHon 09-10-2021 VIT D 25-OH 11.5 ng/mL Normal [facility] Comment on above: Performed By: #### I MICHLE VITPATRICIA #### [facility] [address] [place] [address] Dr. Evens Bowden VIT D RANGES SEE BELOW Normal [facility] Comment on above: Result Comment: <20 ng/mL Vit D deficient 20 - <30 ng/mL Vit D insufficient 30 - 100 ng/mL Vit D sufficient >100 ng/mL Potential Toxicity Performed By: #### I MICHEL VITAD #### [facility] [address] [place] [address] Dr. Evens Bowden VITAMIN B1 (THIAMINE)on 02-27 Vit. B1, Whole Blood 85.1 nmol/L Normal 66.5-200.0 [facility] Comment on above: Performed By: #### C BC #### [facility] [address] [place] [address] Dr. Evens Bowden CBC AUTO DIFFon 03-10-2021 BASO # 0.0 103/ul Normal 0.0-0.1 [facility] Comment on above: Performed By: #### M USKAB #### [facility] [address] [place] [address] Dr. Evens Bowden Basophils/100 WBC (Bld) 0.8 % Normal 0.2-2.0 [facility] Comment on above: Performed By: #### M USKAB #### [facility] [address] [place] [address] Dr. Evens Bowden EO # 0.2 103/ul Normal 0.0-0.7 [facility] Comment on above: Performed By: #### M KAB #### [facility] [address] [place] [address] Dr. Evens Bowden Eosinophils/100 WBC (Bld) 3.4 % Normal 0.9-7.0 [facility] Comment on above: Performed By: #### M KAB #### [facility] [address] [place] [address] Dr. Evens Bowden Erythrocyte distribution width (RBC) [Ratio] 13.2 % Normal 11.0-15.0 [facility] Comment on above: Performed By: #### M MASOODB #### [facility] [address] [place] [address] Dr. Evens Bowden Hematocrit (Bld) [Volume fraction] 34.2 % Critically low 36.0-48.0 [facility] Comment on above: Performed By: #### M USKAB #### [facility] [address] [place] [address] Dr. Evens Bowden Hemoglobin (Bld) [Mass/Vol] 11.2 g/dL Critically low 12.0-16.0 [facility] Comment on above: Performed By: #### M KAB #### [facility] [address] [place] [address] Dr. Evens Bowden IG # 0.01 10e3/ul Normal 0.00-0.03 [facility] Comment on above: Performed By: #### M MASOODB #### [facility] [address] [place] [address] Dr. Evens Bowden IG % 0.2 % Normal 0.0-0.5 [facility] Comment on above: Performed By: #### M MASOODB #### [facility] [address] [place] [address] Dr. Evens Bowden LYMPH # 1.6 103/ul Normal 1.2-3.8 [facility] Comment on above: Performed By: #### M KAB #### [facility] [address] [place] [address] Dr. Evens Bowden Lymphocytes/100 WBC (Bld) 32.5 % Normal 20.5-60.0 [facility] Comment on above: Performed By: #### M MASOODB #### [facility] [address] [place] [address] Dr. Evens Bowden MANUAL DIFF REQ NO Normal [facility] Comment on above: Performed By: #### M MASOODB #### [facility] [address] [place] [address] Dr. Evens Bowden MCH (RBC) [Entitic mass] 30.6 pg Normal 26.7-34.0 [facility] Comment on above: Performed By: #### M MASOODB #### [facility] [address] [place] [address] Dr. Evens Bowden MCHC (RBC) [Mass/Vol] 32.7 g/dL Normal 29.9-35.2 [facility] Comment on above: Performed By: #### M MASOODB #### [facility] [address] [place] [address] Dr. Evens Bowden MCV (RBC) [Entitic vol] 93.4 fL Normal 81.0-99.0 [facility] Comment on above: Performed By: #### M MASOODB #### [facility] [address] [place] [address] Dr. Evens Bowden MONO # 0.5 103/ul Normal 0.3-0.8 [facility] Comment on above: Performed By: #### M ERIK #### [facility] [address] [place] [address] Dr. Evens Bowden Monocytes/100 WBC (Bld) 10.7 % Normal 1.7-12.0 [facility] Comment on above: Performed By: #### Hugo CORREIAB #### [facility] [address] [place] [address] Dr. Evens Bowden NEUT # 2.6 103/ul Normal 1.4-6.5 [facility] Comment on above: Performed By: #### Hugo VALENCIA #### [facility] [address] [place] [address] Dr. Evens Bowden Neutrophils/100 WBC (Bld) 52.4 % Normal 43.0-75.0 [facility] Comment on above: Performed By: #### Hugo VALENCIA #### [facility] [address] [place] [address] Dr. Evens Bowden Platelet mean volume (Bld) [Entitic vol] 9.3 fL Critically low 9.5-13.5 [facility] Comment on above: Performed By: #### Hugo VALENCIA #### [facility] [address] [place] [address] Dr. Evens Bowden PLT 373 103/ul Normal 150-450 [facility] Comment on above: Performed By: #### Hugo VALENCIA #### [facility] [address] [place] [address] Dr. Evens Bowden RBC 3.66 106/ul Critically low 4.20-5.40 [facility] Comment on above: Performed By: #### Hugo VALENCIA #### [facility] [address] [place] [address] Dr. Evens Bowden WBC 5.0 103/ul Normal 4.0-11.0 [facility] Comment on above: Performed By: #### Hugo VALENCIA #### [facility] [address] [place] [address] Dr. Evens Bowden FOLATEon 10-12-2021 FOLATE 7.50 ng/mL Normal >=2.76 [facility] Comment on above: Performed By: #### P JULIA MURRAY UMICRO #### [facility] [address] [place] [address] Patria Mis IRON AND TIBCon 03-10-2021 % SATURATION 8.7 % Normal [facility] Comment on above: Performed By: #### JULIA GARCIA UMICRO #### [facility] [address] [place] [address] Patria Mis Iron [Mass/Vol] 29.0 ug/dL Critically low 37.0-170.0 [facility] Comment on above: Performed By: #### JULIA GARCIA UMICRO #### [facility] [address] [place] [address] Patria Mis TIBC DIRECT 332.0 ug/dL Normal 261.0-497.0 [facility] Comment on above: Performed By: #### JULIA GARCIA UMICRO #### [facility] [address] [place] [address] Patria Mis MAGNESIUMon 03-10-2021 Magnesium [Mass/Vol] 1.7 mg/dL Normal 1.6-2.3 [facility] Comment on above: Performed By: #### C BC #### [facility] [address] [place] [address] Dr. Evens Bowden PHOSPHORUSon 03-10-2021 Phosphate [Mass/Vol] 3.7 mg/dL Normal 2.5-4.5 [facility] Comment on above: Performed By: #### C BC #### [facility] [address] [place] [address] Dr. Evens Bowden PROF 14(COMP METB)on 021 Albumin [Mass/Vol] 3.6 g/dL Normal 3.5-5.0 [facility] Comment on above: Performed By: #### C BC #### [facility] [address] [place] [address] Dr. Evens Bowden Albumin/Globulin [Mass ratio] 1.1 {ratio} Normal [facility] Comment on above: Performed By: #### C BC #### [facility] [address] [place] [address] Dr. Evens Bowden ALP [Catalytic activity/Vol] 91 U/L Normal 38-126 [facility] Comment on above: Performed By: #### C BC #### [facility] [address] [address] [address] Evens Bowden ALT [Catalytic activity/Vol] 31 U/L Normal 9-52 [facility] Comment on above: Performed By: #### C BC #### [facility] [address] [place] [address] Dr. Evens Bowden Anion gap [Moles/Vol] 12.5 mmol/L Normal [facility] Comment on above: Performed By: #### C BC #### [facility] [address] [place] [address] Dr. Evens Bowden AST [Catalytic activity/Vol] 22 U/L Normal 14-36 [facility] Comment on above: Performed By: #### C BC #### [facility] [address] [place] [address] Dr. Evens Bowden Bilirubin [Mass/Vol] 0.4 mg/dL Normal 0.2-1.3 [facility] Comment on above: Performed By: #### C BC #### [facility] [address] [place] [address] Dr. Evens Bowden Calcium [Mass/Vol] 8.2 mg/dL Critically low 8.4-10.2 [facility] Comment on above: Performed By: #### C BC #### [facility] [address] [address] [address] Evens Bowden Chloride [Moles/Vol] 106 mmol/L Normal 98-107 [facility] Comment on above: Performed By: #### C BC #### [facility] [address] [place] [place] [address] Dr. Evens Bowden CO2 [Moles/Vol] 26.3 mmol/L Normal 22.0-30.0 [facility] Comment on above: Performed By: #### C BC #### [facility] [address] [address] [address] Evens Bowden Creatinine [Mass/Vol] 0.57 mg/dL Normal 0.52-1.04 [facility] Comment on above: Performed By: #### C BC #### [facility] [address] [address] [address] Evens Bowden EGFR-AF AFGHAN >60 Normal >=60 [facility] Comment on above: Performed By: #### C BC #### [facility] [address] [address] [address] Evens Bowden EGFR-NON AF AFGHAN >60 Normal >=60 [facility] Comment on above: Performed By: #### C BC #### [facility] [address] [place] [address] Dr. Evens Bowden Globulin (S) [Mass/Vol] 3.4 g/dL Normal [facility] Comment on above: Performed By: #### C BC #### [facility] [address] [place] [address] Dr. Evens Bowden Glucose [Mass/Vol] 92 mg/dL Normal 74-106 [facility] Comment on above: Performed By: #### C BC #### [facility] [address] [place] [address] Dr. Evens Bowden Potassium [Moles/Vol] 3.8 mmol/L Normal 3.4-5.0 [facility] Comment on above: Performed By: #### C BC #### [facility] [address] [place] [address] Dr. Evens Bowden Protein [Mass/Vol] 7.0 g/dL Normal 6.1-8.2 [facility] Comment on above: Performed By: #### C BC #### [facility] [address] [place] [address] Dr. Evens Bowden Sodium [Moles/Vol] 141 mmol/L Normal 137-145 [facility] Comment on above: Performed By: #### C BC #### [facility] [address] [place], [place] [id number] Dr. Evens Bowden Urea nitrogen [Mass/Vol] 7.0 mg/dL Normal 7.0-17.0 [facility] Comment on above: Performed By: #### C BC #### [facility] [address] [place] [address] Dr. Evens Bowden Urea nitrogen/Creatinine [Mass ratio] 12.3 mg/mg Normal [facility] Comment on above: Performed By: #### C BC #### [facility] [address] [place] [address] Dr. Evens Bowden VITAMIN B12on 03-10-2021 Cobalamin (Vitamin B12) [Mass/Vol] 211.0 pg/mL Critically low 239.0-931.0 [facility] Comment on above: Performed By: #### P JULIA MURRAY UMICRO #### [facility] [address] [place] [address] Patria Mis VITAMIN D 25 OHon 03-10-2021 VIT D 25-OH 15.8 ng/mL Normal [facility] Comment on above: Performed By: #### P JULIA MURRAY UMICRO #### [facility] [address] [place] [address] Patria Mis VIT D RANGES SEE BELOW Normal [facility] Comment on above: Result Comment: <20 ng/mL Vit D deficient 20 - <30 ng/mL Vit D insufficient 30 - 100 ng/mL Vit D sufficient >100 ng/mL Potential Toxicity Performed By: #### JULIA GARCIA UMICRO #### [facility] [address] [place] [address] Patria Mis VITAMIN D 25 OHon 02-10-2021 VIT D 25-OH 16.7 ng/mL Normal [facility] Comment on above: Performed By: #### M ERIK #### [facility] [address] [place] [address] Dr. Evens Bowden VIT D RANGES SEE BELOW Normal [facility] Comment on above: Result Comment: <20 ng/mL Vit D deficient 20 - <30 ng/mL Vit D insufficient 30 - 100 ng/mL Vit D sufficient >100 ng/mL Potential Toxicity Performed By: #### M USKAB #### [facility] [address] [place] [address] Dr. Evens Bowden CBC AUTO DIFFon 01-02-2021 BASO # 0.1 103/ul Normal 0.0-0.1 [facility] Comment on above: Performed By: #### C BC #### [facility] [address] [place] [address] Dr. Evens Bowden Basophils/100 WBC (Bld) 0.5 % Normal 0.2-2.0 [facility] Comment on above: Performed By: #### C BC #### [facility] [address] [place] [address] Dr. Evens Bowden EO # 0.0 103/ul Normal 0.0-0.7 [facility] Comment on above: Performed By: #### C BC #### [facility] [address] [place] [address] Dr. Evens Bowden Eosinophils/100 WBC (Bld) 0.4 % Critically low 0.9-7.0 [facility] Comment on above: Performed By: #### C BC #### [facility] [address] [place] [address] Dr. Evens Bowden Erythrocyte distribution width (RBC) [Ratio] 13.2 % Normal 11.0-15.0 [facility] Comment on above: Performed By: #### C BC #### [facility] [address] [place] [address] Dr. Evens Bowden Hematocrit (Bld) [Volume fraction] 35.3 % Critically low 36.0-48.0 [facility] Comment on above: Performed By: #### C BC #### [facility] [address] [place] [address] Dr. Evens Bowden Hemoglobin (Bld) [Mass/Vol] 11.6 g/dL Critically low 12.0-16.0 [facility] Comment on above: Performed By: #### C BC #### [facility] [address] [place] [address] Dr. Evens Bowden IG # 0.02 10e3/ul Normal 0.00-0.03 [facility] Comment on above: Performed By: #### C BC #### [facility] [address] [place] [address] Dr. Evens Bowden IG % 0.2 % Normal 0.0-0.5 [facility] Comment on above: Performed By: #### C BC #### [facility] [address] [place] [address] Dr. Evens Bowden LYMPH # 1.1 103/ul Critically low 1.2-3.8 [facility] Comment on above: Performed By: #### C BC #### [facility] [address] [place] [address] Dr. Evens Bowden Lymphocytes/100 WBC (Bld) 11.0 % Critically low 20.5-60.0 [facility] Comment on above: Performed By: #### C BC #### [facility] [address] [place] [address] Dr. Evens Bowden MANUAL DIFF REQ NO Normal [facility] Comment on above: Performed By: #### C BC #### [facility] [address] [place] [address] Dr. Evens Bowden MCH (RBC) [Entitic mass] 30.5 pg Normal 26.7-34.0 [facility] Comment on above: Performed By: #### C BC #### [facility] [address] [place] [address] Dr. Evens Bowden MCHC (RBC) [Mass/Vol] 32.9 g/dL Normal 29.9-35.2 [facility] Comment on above: Performed By: #### C BC #### [facility] [address] [place] [address] Dr. Evens Bowden MCV (RBC) [Entitic vol] 92.9 fL Normal 81.0-99.0 [facility] Comment on above: Performed By: #### C BC #### [facility] [address] [place] [address] Dr. Evens Bowden MONO # 0.6 103/ul Normal 0.3-0.8 [facility] Comment on above: Performed By: #### C BC #### [facility] [address] [address] [address] Evens Bowden Monocytes/100 WBC (Bld) 6.2 % Normal 1.7-12.0 [facility] Comment on above: Performed By: #### C BC #### [facility] [address] [address] [address] Evens Bowden NEUT # 8.4 103/ul Critically high 1.4-6.5 [facility] [place] Comment on above: Performed By: #### C BC #### [facility] [address] [address] [address] Evens Bowden Neutrophils/100 WBC (Bld) 81.7 % Critically high 43.0-75.0 [facility] Comment on above: Performed By: #### C BC #### [facility] [address] [place] [address] Dr. Evens Bowden Platelet mean volume (Bld) [Entitic vol] 10.0 fL Normal 9.5-13.5 [facility] Comment on above: Performed By: #### C BC #### [facility] [address] [address] [address] Evens Bowden PLT 317 103/ul Normal 150-450 [facility] Comment on above: Performed By: #### C BC #### [facility] [address] [address] [address] Evens Bowden RBC 3.80 106/ul Critically low 4.20-5.40 [facility] [place] Comment on above: Performed By: #### C BC #### [facility] [address] [place] [address] Dr. Evens Bowden WBC 10.2 103/ul Normal 4.0-11.0 [facility] Comment on above: Performed By: #### C BC #### [facility] [address] [place] [address] ABD/PELVIS WO CONon [...] AUDREY ROWE Date: 2021-01-02 10:13 Normal [facility] CULTURE URINEon 01-02-2021 CULTURE URINE Culture Observations : MODERATE GROWTH OF MIXED GENITAL SHEYLA. NO POTENTIAL PATHOGENS SEEN. Normal [facility] Comment on above: Performed By: #### M USKAB #### [facility] [address] [address] [address] Evens MENDOZA URINE PROFILEon 1 Bilirubin Ql (U) SMALL Abnormal NEGATIVE [facility] Comment on above: Performed By: #### P JULIA MURRAY UMICRO #### [facility] [address] [address] Patria Abebe Clarity (U) SL CLOUDY Abnormal CLEAR [facility] Comment on above: Performed By: #### P JULIA MURRAY UMICRO #### [facility] [address] [address] Patria Mis Color (U) YELLOW Normal YELLOW [facility] Comment on above: Performed By: #### P REGJULIA Lang UMWARRENRO #### [facility] [address] [place] [address] Patriakarol Abebe ERUANAYD A micrscopic examina tion will be performed if indicated. Normal [facility] Comment on above: Performed By: #### P REGJULIA Lang UMICRO #### [facility] [address] [address] Patria Mis Glucose Ql (U) Negative Normal NEGATIVE [facility] Comment on above: Performed By: #### P JULIA MURRAY UMICRO #### [facility] [address] [place] [address] Patria Mis Hemoglobin Ql (U) TRACE-LYSED Abnormal NEGATIVE [facility] Comment on above: Performed By: #### JULIA GARCIA UMICRO #### [facility] [address] [place] [address] Patria Mis Ketones Ql (U) 40 mg/dl Abnormal NEGATIVE [facility] Comment on above: Performed By: #### P JULIA MURRAY UMICRO #### [facility] [address] [place] [address] Patria Msi LEUKOCYTES Negative Normal NEGATIVE [facility] Comment on above: Performed By: #### P REGJULIA Lang UMICRO #### [facility] [address] [place] [address] Patria Mis Nitrite Ql (U) Negative Normal NEGATIVE [facility] Comment on above: Performed By: #### P REGUSHOSHANAR UMICRO #### [facility] [address] [place] [address] Patria Mis pH (U) 6.0 [pH] Normal 5-9 [facility] Comment on above: Performed By: #### P REGSHOSHANA LangR UMICRO #### [facility] [address] [place] [address] Patria Mis SPEC GRAVITY >=1.030 Abnormal 1.005-<=1.025 [facility] [place] Comment on above: Performed By: #### P REGSHOSHANA LangR, UMICRO #### [facility] [address] [place] [address] Patria Abebe UA PROTEIN Negative Normal NEGATIVE/ TRACE [facility] Comment on above: Performed By: #### P REGU ERUR, UMICRO #### [facility] [address] [place] [address] Patria Abebe UR MICRO IND INDICATED Normal [facility] Comment on above: Performed By: #### P REGU ERUR, UMICRO #### [facility] [address] [place] [address] Patria Abebe Urobilinogen Qn (U) 4 {Johnnie'U}/dL Abnormal 0.2 - 1.0 [facility] Comment on above: Performed By: #### P REGSHOSHANA LangR, UMICRO #### [facility] [address] [place] [address] Patria Abebe LIPASEon 01-02-2021 Lipase [Catalytic activity/Vol] 64.0 U/L Normal 23.0-300.0 [facility] Comment on above: Performed By: #### C BC #### [facility] [address] [place] [address] Dr. Evens oBwden URon 01-02-2021 , QUAL Negative Normal NEGATIVE [facility] [place] Comment on above: Performed By: #### P REGSHOSHANA LangR, UMICRO #### [facility] [address] [place] [address] Patria Mis PROF 14(COMP METB)on 021 Albumin [Mass/Vol] 4.2 g/dL Normal 3.5-5.0 [facility] Comment on above: Performed By: #### C BC #### [facility] [address] [place] [address] Dr. Evens Bowden Albumin/Globulin [Mass ratio] 1.1 {ratio} Normal [facility] Comment on above: Performed By: #### C BC #### [facility] [address] [place] [address] Dr. Evens Bowden ALP [Catalytic activity/Vol] 100 U/L Normal 38-126 [facility] Comment on above: Performed By: #### C BC #### [facility] [address] [place] [address] Dr. Evens Bowden ALT [Catalytic activity/Vol] 41 U/L Normal 9-52 [facility] Comment on above: Performed By: #### C BC #### [facility] [address] [place] [address] Dr. Evens Bowden Anion gap [Moles/Vol] 14.4 mmol/L Normal [facility] Comment on above: Performed By: #### C BC #### [facility] [address] [place] [address] Dr. Evens Bowden AST [Catalytic activity/Vol] 30 U/L Normal 14-36 [facility] Comment on above: Performed By: #### C BC #### [facility] [address] [place] [address] Dr. Evens Bowden Bilirubin [Mass/Vol] 0.5 mg/dL Normal 0.2-1.3 [facility] Comment on above: Performed By: #### C BC #### [facility] [address] [place] [address] Dr. Evens Bowden Calcium [Mass/Vol] 9.0 mg/dL Normal 8.4-10.2 [facility] Comment on above: Performed By: #### C BC #### [facility] [address] [place] [address] Dr. Evens Bowden Chloride [Moles/Vol] 106 mmol/L Normal 98-107 [facility] Comment on above: Performed By: #### C BC #### [facility] [address] [place] [address] Dr. Evens Bowden CO2 [Moles/Vol] 26.3 mmol/L Normal 22.0-30.0 [facility] Comment on above: Performed By: #### C BC #### [facility] [address] [place] [address] Dr. Evens Bowden Creatinine [Mass/Vol] 0.74 mg/dL Normal 0.52-1.04 [facility] Comment on above: Performed By: #### C BC #### [facility] [address] [address] [address] Evens Bowden EGFR-AF AFGHAN >60 Normal >=60 [facility] Comment on above: Performed By: #### C BC #### [facility] [address] [address] [address] Evens Bowden EGFR-NON AF AFGHAN >60 Normal >=60 [facility] Comment on above: Performed By: #### C BC #### [facility] [address] [address] [address] Evens Bowden Globulin (S) [Mass/Vol] 3.7 g/dL Normal [facility] Comment on above: Performed By: #### C BC #### [facility] [address] [address] [address] Evens Bowden Glucose [Mass/Vol] 112 mg/dL Critically high 74-106 [facility] Comment on above: Performed By: #### C BC #### [facility] [address] [address] [address] Evens Bowden Potassium [Moles/Vol] 3.7 mmol/L Normal 3.4-5.0 [facility] Comment on above: Performed By: #### C BC #### [facility] [address] [address] [address] Evens Bowden Protein [Mass/Vol] 7.9 g/dL Normal 6.1-8.2 [facility] Comment on above: Performed By: #### C BC #### [facility] [address] [address] [address] Evens Bowden Sodium [Moles/Vol] 143 mmol/L Normal 137-145 [facility] Comment on above: Performed By: #### C BC #### [facility] [address] [address] [address] Evens Bowden Urea nitrogen [Mass/Vol] 10.0 mg/dL Normal 7.0-17.0 [facility] Comment on above: Performed By: #### C BC #### [facility] [address] [address] [address] Evens Bowedn Urea nitrogen/Creatinine [Mass ratio] 13.5 mg/mg Normal [facility] Comment on above: Performed By: #### C BC #### [facility] [address] [address] [address] Evens Bowden URINE MICROSCOPIC ONLYon BACTERIA MODERATE Abnormal NONE SEEN [facility] Comment on above: Performed By: #### P REGU, ERUR, UMICRO #### [facility] [address] [address] Patria Mis Bacteria identified Cx Nom (U) INDICATED Normal [facility] Comment on above: Performed By: #### P REGU, ERUR, UMICRO #### [facility] [address] [place] [address] Patria Mis CAST NONE SEEN Normal NONE SEEN [facility] Comment on above: Performed By: #### P REGU, ERUR, UMICRO #### [facility] [address] [place] [address] Patria Ims Crystals LM Nom (Urine sed) NONE SEEN Normal NONE SEEN [facility] Comment on above: Performed By: #### P REGU, ERUR, UMICRO #### [facility] [address] [place] [address] Patria Mis Epithelial cells LM Ql (Urine sed) FEW Abnormal NONE SEEN /RARE [facility] Comment on above: Performed By: #### P REGU, ERUR, UMICRO #### [facility] [address] [place] [address] Patria Mis MUCOUS TRACE Abnormal NONE SEEN [facility] Comment on above: Performed By: #### P REGU, ERUR, UMICRO #### [facility] [address] [place] [address] Patria Mis RBC 0-2 Normal 0-2 [facility] Comment on above: Performed By: #### P REGU, ERUR, UMICRO #### [facility] [address] [place], [place] [address] Patria Abebe WBC 0-2 Abnormal NONE SEEN [facility] Comment on above: Performed By: #### P JULIA MURRAY UMICRO #### [facility] [address] [place], [place] [address] Patria Abebe MRI KNEE RT WO CONon [...] ALISON TONEY Date: 2020-12-08 16:25 Normal [facility] CBC and Differentialon 03-10 Abs Baso 0.03 k/uL Normal <0.11 [facility] Abs Saline 0.81 k/uL Normal <0.87 [facility] Abs Neut 2.94 k/uL Normal 1.45-7.50 [facility] Absolute nRBC <0.01 Normal <0.01 [facility] Basophils/100 WBC Auto (Bld) 0.5 % Normal [facility] DTYPE Auto Diff Normal [facility] Eosinophils Auto #/vol (Bld) 0.27 10*3/uL Normal <0.46 [facility] Eosinophils/100 WBC Auto (Bld) 4.6 % Normal [facility] Erythrocyte distribution width Auto Ratio (RBC) 12.7 % Normal 11.5-15.0 [facility] Hematocrit Auto Volume Fraction (Bld) 36.0 % Normal 36.0-46.0 [facility] Hemoglobin mass conc (Bld) 12.1 g/dL Normal 11.5-15.5 [facility] Lymphocytes Auto #/vol (Bld) 1.88 10*3/uL Normal 1.00-4.00 [facility] Lymphocytes/100 WBC Auto (Bld) 31.7 % Normal [facility] MCH Auto Entitic mass (RBC) 30.6 pG Normal 26.0-34.0 [facility] MCHC Auto mass conc (RBC) 33.6 g/dL Normal 30.5-36.0 [facility] MCV Auto Entitic volume (RBC) 91.1 fL Normal 80.0-100.0 [facility] Monocytes/100 WBC Auto (Bld) 13.7 % Normal [facility] Neutrophils/100 WBC Auto (Bld) 49.5 % Normal [facility] NRBCs 0.0 /100 WBC Normal 0 [facility] Platelet mean volume Auto Entitic volume (Bld) 9.4 fL Normal 9.0-12.7 [facility] Platelets Auto #/vol (Bld) 257 10*3/uL Normal 150-400 [facility] RBC Auto #/vol (Bld) 3.95 10*6/uL Normal 3.90-5.20 [facility] WBC Auto #/vol (Bld) 5.93 10*3/uL Normal 3.70-11.00 [facility] Comp Metabolic Panelon 03-10 Albumin mass conc 3.6 g/dL Low 3.9-4.9 [facility] ALP enzyme act/vol 46 U/L Normal 34-123 [facility] ALT enzyme act/vol 18 U/L Normal 7-38 [facility] Anion gap 3 molar conc 10 mmol/L Normal 9-18 [facility] AST enzyme act/vol Unable to assay. Spe cimen significantly hemolyzed. Normal 13-35 [facility] Bilirubin mass conc 0.2 mg/dL Normal 0.2-1.3 [facility] Calcium mass conc 8.1 mg/dL Low 8.6-10.0 [facility] Chloride molar conc 103 mmol/L Normal 97-105 [facility] CO2 molar conc 27 mmol/L Normal 22-30 [facility] Creatinine mass conc 0.68 mg/dL Normal 0.58-0.96 [facility] eGFR- Amer. >60 Normal [facility] GFR/1.73 sq M predicted among non-blacks MDRD vol rate/area (S/P/Bld) mL/min/{1.73_m2} Normal [facility] Comment on above: Result Comment: eGFR [...] Glucose mass conc 105 mg/dL High 74-99 [facility] Comment on above: Result Comment: The [place] [employer] (ADA) provides guidance for cutoff [...] Standards of Medical Care in Diabetes 2016, [place] [employer]. Diabetes Care. 2016.39(Suppl 1). Potassium molar conc 4.1 mmol/L Normal 3.7-5.1 [facility] Protein mass conc 6.1 g/dL Low 6.3-8.0 [facility] Sodium molar conc 140 mmol/L Normal 136-144 [facility] Urea nitrogen mass conc 8 mg/dL Normal 7-21 [facility] ED NOTEon 03-10-2018 ED NOTE HNO ID: [id number] thor: Iliana (Rn) Dawn Padillaice: (none)Author Type: Registered NurseType: ED NotesFiled: 03/10/2018 3:32 AMNote Text: Discharge instructions per provider, the patient verbalizesunderstanding. No additional questions or concerns at this time. Patient Vital signs stable, no acute distress noted. Patient ambulatory out ofED. [facility] ED NOTE HNO ID: [id number] Author: Gayla (Rn) DUSTIN Hurtado Service: (none) Author Type: Registered Nurse Type: ED Notes Filed: 03/10/2018 2:46 AM Note Text: Clean catch urine specimen obtained and sent. [facility] ED NOTE HNO ID: [id number] Author: Gayla CastRn) DUSTIN Hurtado Service: (none) Author Type: Registered Nurse Type: ED Notes Filed: 03/10/2018 12:36 AM Note Text: [facility] with Tech. [facility] ED NOTE HNO ID: [id number] thor: Felipe (Medic) Gina AlarconService: (none)Author Type: Dashboard Developer and TechnicianType: ED NotesFiled: 03/09/2018 11:50 PMNote [...] SOB. No othercomplaints noted. [facility] ED PROV NOTEon 03-10-2018 Protein mass conc HNO ID: [id number] thor: Francis Eagle: (none)Author Type: PhysicianType: ED Provider NotesFiled: 03/10/2018 6:42 AMNote Text:ED Provider NotePatient Name: Joesph ManciaJeremyRN: [id number] DATE: 03/09/18HistoryPatient presents with:Chest PainPhysical 27-year-old female [...] (all recorded)Pulmonary Embolism Row Name 03/10/18 0211 03/10/189 PERC Is pretest probability for PE [...] 10 0321Chest wall painMDM / Disposition / [id number] female comes into the emergency department complaining [...] Normal sinus rhythmRate: 80Axis: Normal axisIntervals: Normal AL intervalQRS Complex: NormalST Segment: Normal ST-T segmentsQT Interval: NormalCompared with Prior:Interpretation performed by Shar AvilaThe patient was discharged.Counseled patient regarding lab results, radiology results and suspecteddiagnosis. As well as the need for follow-up. Discharged home withverbal and written instructions. They were instructed to return as neededfor persistent or worsening symptoms or any new concerns.Condition at disposition is improved.SIGNATURE: Chapin Avila, TDOD03/10/18 0319Attending NoteI have personally performed a face [...] As editedSignature: CLARKE Powellate: 03/10/2018Time: 6:40 AMAaron Shira03/10/18 0642 Normal [facility] EKGon 03-10-2018 Protein mass conc NAME : MARK CISSE ID : [id number] : 1990 Gender : FemaleRace : CaucasianORD : Procedure Date : Mar 09 2018 23:52:59Edit Date : Mar 10 2018 05:16:28 Diagnosis:Normal sinus rhythmNormal ECGNo previous ECGs availableConfirmed by DO SILVA AARON ([id number]), associate entertainment editor DEIRDRE ELIZONDO ([id number]) on 03/10/2018 5:16:22 AM Ventricular Rate : 80 BPMAtrial Rate : 80 BPMP-R Interval : 166 msQRS Duration : 92 msQ-T Interval : 394 msQTC Calculation(Bezet) : 454 msP Coral : 25 degreesR Coral : 19 degreesT Coral : 29 degrees Test Reason : Location : 302 : ED ED Overread By : DO SILVA AARONEdited By : REFUGIO ELIZONDOeferred By : ,Acquired by : , Normal [facility] High Sens Troponin Ton 03-10 High Sensitivity RONAK <6 Normal <12 [facility] Comment on above: Result Comment: When [...] MACE. High Sensitivity RONAK <6 Normal <12 [facility] Comment on above: Result Comment: When [...] Lipase enzyme act/vol 26 U/L Normal 16-61 [facility] PROGRESSon 03-10-2018 Protein mass conc HNO ID: [id number] thor: Mehreen Alves RtService: (none)Author Type: (none)Type: Progress NotesFiled: 03/10/2018 12:51 AMNote Text: Radiology Service Progress NotePATIENT NAME: Joesph NievesRN: [id number] OF SERVICE: March 10, 2018TIME: 12:50 AMPATIENT IDENTITY VERIFICATION COMPLETED USING TWO (2) METHODS: Patientconfirmed name verbally and ID band matches..PATIENT GENDER DATA: Female. status: : NoBreastfeeding status: NO.PATIENT RELEVANT IMPLANT DATA REVIEWED: YesRADIOLOGY DEPARTMENT: General X-ray: Exam(s) Completed: Chest X-RayPERIPHERAL IV DATA: Not applicableSIGNED BY: Mehreen Alves RtOctober 2017 12:50 AM Normal [facility] XR CHEST 2V FRONTAL/LATon XR CHEST [...] displaced acute fractures are detected.IMPRESSION:No acute radiographic abnormality.Client Services Administrator ist: PSCB Transcribe Date/Time: Mar 10 2018 1:00ADictated by : VIK BURDICK MDThis examination was interpreted and the report reviewed and electronically signed by: VIK BURDICK MD on Mar 10 2018 1:01AM [id number] Normal [facility] Vital Signs Date Time Vital Sign Value Performing Clinician Ranjit mtz 10-19-2023 08:47-0400 Body height 162.6 cm Will Dupree [employer] Work Phone: [facility] 10-19-2023 08:47-0400 Body mass index (BMI) [Ratio] 34.33 kg/m2 Will Delvis [employer] Work Phone: [facility] 10-19-2023 08:47-0400 Body weight 90.72 kg Will [employer] Work Phone: [facility] 05-31-2023 15:25-0500 Body height 160 cm Jarod Weeks MD Work Phone: [facility] 05-31-2023 15:25-0500 Body mass index (BMI) [Ratio] 37.74 kg/m2 Jarod Weeks MD Work Phone: [facility] 05-31-2023 15:25-0500 Body weight 96.62 kg [facility] 05-31-2023 15:25-0500 Diastolic blood pressure 78 mm[Hg] Jarod Weeks MD Work Phone: [facility] 05-31-2023 15:25-0500 Respiratory rate 18 /min Jarod Weeks MD Work Phone: [facility] 05-31-2023 15:25-0500 Systolic blood pressure 124 mm[Hg] Jarod Weeks MD Work Phone: [facility] Encounters Encounter Date Encounter Type Care Provider Facility Start: 01-14-2024 End: 01-14-2024 ambulatory [facility] Start: 12-26-2023 End: 12-26-2023 ambulatory Jefferson York MD Facility:[facility] Start: 11-03-2023 End: 11-03-2023 ambulatory OZIELCOURTNEYKELLY CHAVEZ Not Available Start: 10-19-2023 End: 10-19-2023 ambulatory WILL Asif DUPREE Facility:[facility] Start: 10-19-2023 End: 10-19-2023 ambulatory Will Dupree DO Work Phone: [facility] Comment on above: Hypermobility of lillie nt (Primary Dx) Start: 10-19-2023 End: 10-19-2023 Telemedicine consultation with patient Will Dupree DO Work Phone: [facility] Start: 09-28-2023 End: 09-28-2023 ambulatory [facility] Start: 09-26-2023 End: 09-26-2023 [facility] Start: 09-23-2023 End: 09-23-2023 ambulatory [facility] Start: 09-21-2023 End: 09-21-2023 ambulatory [facility] Start: 09-19-2023 End: 09-19-2023 ambulatory [facility] Start: 09-10-2023 End: 09-10-2023 ambulatory [facility] Start: 09-08-2023 End: 09-08-2023 ambulatory [facility] Start: 05-31-2023 End: 01-02-2024 ambulatory JAROD WEEKS [facility] Start: 05-31-2023 End: 05-31-2023 Office outpatient visit 25 minutes Jarod Weeks MD Work Phone: [facility] Comment on above: Greater [...] 03-10-2018 End: 03-10-2018 Emergency department patient visit [facility] Plan of Treatment Date Care Activity Detail Author Start: 11-24-2031 DTaP,Tdap and Td Vaccines (2 - Tdap) DTaP,Tdap and Td Vaccines (2 - Tdap) [facility] Start: 11-24-2031 Urine microalbumin profile DTaP,Tdap,Td Vaccine (2 - Tdap) [facility] Start: 05-31-2024 Adult BMI Screening Adult BMI Screening [facility] Start: 02-17-2024 Tobacco Screening Tobacco Screening [facility] Start: 01-29-2024 Influenza vaccination Influenza Vaccine (Season Ended) [facility] Start: 09-08-2023 End: 09-08-2023 Patient encounter procedure 09/08/2023 11:30 AM EDT Office Visit [facility] [address] [place] [address] Jarod Weeks MD [address] [address] [facility] Start: 05-30-2023 Behavioral Health Screening Behavioral Health Screening [facility] Start: 01-28-2023 COVID-19 Vaccine ( season) COVID-19 Vaccine () [facility] Start: 01-28-2023 Influenza vaccination Influenza Vaccine [facility] Start: 2022 Screening for malignant neoplasm of cervix HPV Testing [facility] Start: 2013 Screening for malignant neoplasm of cervix [facility] Start: 2011 Hepatitis B Vaccine (1 of 3 - 19+ 3-dose series) Hepatitis B Vaccine (1 of 3 - 19+ 3-dose series) [facility] Start: 2010 Adult BMI Follow Up Plan Adult BMI Follow Up Plan [facility] Start: 2010 Hepatitis C screening Hepatitis C Screening [facility] Start: 2010 HIV screening HIV Screening [facility] Start: 2004 Depression Screening Depression Screening [facility] Payers Date Payer Category Payer Unknown 2022 Unknown [id number] 2022 Private Health Insurance [id number] 2022 Private Health Insurance [id number] 1990 Unknown [id number] 2.16.84 0.1.086006.3.579.2.593 1990 Unknown [id number] 2.16.84 0.1.411195.3.579.2.593 1992 Unknown [id number] 2.16.84 0.1.180923.3.579.2.593 1992 Unknown [id number] 2.16.84 0.1.251500.3.579.2.593 1992 Unknown [id number] 2.16.84 0.1.077968.3.579.2.593 1992 Unknown [id number] 2.16.84 0.1.070131.3.579.2.593 1992 Unknown [id number] 2.16.84 0.1.805799.3.579.2.593 1992 Unknown [id number] 2.16.84 0.1.164043.3.579.2.593 1992 Unknown [id number] 2.16.84 0.1.824773.3.579.2.593 1992 Unknown [id number] 2.16.84 0.1.645959.3.579.2.1286 1992 Unknown [id number] 2.16.84 0.1.061554.3.579.2.1259 1992 Unknown [id number] 2.16. 840.1.044893.3.579.2.196 1992 Unknown [id number] 2.16.8 40.1.446351.3.579.2.6 1992 Unknown [id number] 2.16.8 40.1.651166.3.579.2.1286 1992 Unknown [id number] 2.16.8 40.1.739109.3.579.2.128 1992 Unknown [id number] 2.16.8 40.1.416369.3.579.2.128 1992 Unknown [id number] 2.16.8 40.1.369303.3.579.2.1285 1992 Unknown [id number] 2.16.8 40.1.270364.3.579.2.1286 1992 Unknown [id number] 2.16.8 40.1.780604.3.579.2.128 1992 Unknown [id number] 2.16.8 40.1.326392.3.579.2.1286 1992 Unknown [id number] 2.16.8 40.1.774175.3.579.2.1286 1959 Unknown [id number] Social History Date Type Detail Facility Start: 10-11-2022 End: 10-19-2023 Tobacco smoking status NHIS Never smoked tobacco [facility] Start: 10-11-2022 End: 10-19-2023 Tobacco use and exposure Smokeless tobacco non-user [facility] Start: 02-16-2023 Alcohol intake Current drinke r of alcohol (finding) [facility] Start: 02-16-2023 End: 10-19-2023 Alcohol intake [facility] Start: 02-16-2023 End: 10-19-2023 Tobacco use panel [facility] How hard is it for y ou to pay for the very basics like food, housing, medical care, and heating Somewhat hard [facility] In the past 12 month s, has lack of transportation kept you from medical appointments or from getting medications? No [facility] Start: 1990 Sex Assigned At Female P [facility] Start: 05-12-2023 Gender identity Identifies as female gender (finding) [facility] Start: 05-12-2023 Sexual orientation Choose not to disclose [facility] Start: 10-19-2023 Alcohol intake Ex-drinker (finding) [facility] NEGATED: Highlighted rowStart: NINF History of tobacco use Passive smoker [facility] Medical Equipment Procedure Code Equipment Code Equipment Origin al Text Equipment Identifier Dates Use to inject Vi t B 12 intramuscular [id number] Start: 05-31-2023 Use to inject Vi t B 12 intramuscular [id number] Start: 09-21-2022 End: 05-31-2023 Progress note 10-19-2023 Note Date & Type Note Facility 10-19-2023 Note HNO ID: [id number] Author: WILL DUPREE, DO Service: ? Author Type: Physician Type: Progress Notes Filed: 10/19/2023 11:02 Note Text: Telemedicine Visit - Distance Health Virtual Visit Note Patient seen on [employer]Spring Video Visit platform. Location of patient: [place] PCP: No primary care provider on file. History of Present Illness Joesph Neff is a 33 year old female who presents for a referral request. - Says her PCP was concerned for EDS and needs an internal referral to a vein access technician to be evaluated - Suspect EDS for [...] visit. 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 Physician Attestation: Will Valencia, DO, personally performed the services described in this documentation. All medical record entries made by the scribe were at my direction and in my presence. I have reviewed the chart and discharge instructions (if applicable) and agree that the record reflects my personal performance and is accurate and complete. Electronically Signed: Will Dupree DO. [facility] Progress note 10-19-2023 Note Date & Type Note Facility 10-19-2023 Note HNO ID: [id number] Author: SHITAL ROY RN Service: ? Author Type: Registered Nurse Type: Progress Notes Filed: 10/19/2023 11:02 Note Text: Items addressed in this encounter: Other VV pre check, name and location verified, aware of tele health visit with A Delvis Torres RN October 19, 2023 8:51 AM 8:51 AM [facility] History of Present illness Narrative 10-19-2023 Will Dupree DO - 10/19/2023 10:27 AM EDTPShital schuler RN - 10/19/2023 8:51 AM EDT Note Date & Type Note Facility 10-19-2023 History of Presen t illness Narrative Telemedicine Visit - Distance Health Virtual Visit Note Patient seen on we[employer]Spring Video Visit platform. Location of patient: [place] PCP: No primary care provider on file. History of Present Illness Joesph Neff is a 33 year old female who presents for a referral request. - Says her PCP was concerned for EDS and needs an internal referral to a vein access technician to be evaluated - Suspect EDS for [...] visit. 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 Scribe Attestation: By signing my name below, ILluvia, attest that this documentation has been prepared under the direction and in the presence of Will Dupree D.O. Electronically Signed: Lluvia Ceballosibkota. October 19, 2023 10:27 AM. Physician Attestation: [...] AM 8:51 AM documented in this encounter [facility] History of Present illness Narrative 05-31-2023 Jarod Weeks MD - 05/31/2023 3:30 PM Ashely Weeks MD - 05/31/2023 3:30 PM EST Note Date & Type Note Facility 05-31-2023 History of Present illness Narrative Images from the original note were not included. [address] [address] Date of Service: 05/31/2023 Subjective: Joesph Neff [...] 08/23/2022 AMISHA IFA negative, complements normal, anti TOOLROOM KEEPER 1.7 AI, vitamin-D 11.9 ng/mL normal, urinalysis [...] 40 mg 4 mL intradermal Once Jarod Weeks, MD triamcinolone acetonide (KENALOG-40) injection 40 mg [...] or corrected. Thank you for your understanding. [facility]. Jarod Weeks MD [address] [place] [address], [address] [place] [address] Office: [phone] Rheumatology Procedure Site: Bilateral trochanteric bursa and [...] during the procedure documented in this encounter [facility] Evaluation note Note Date & Type Note Facility Evaluation note Diagnosis Greater trochanteric bursitis of both hips- Primary Fibromyalgia Unspecified myalgia and myositis Vitamin B 12 deficiency Other B-complex deficiencies Anserine bursitis documented in this encounter [facility] Evaluation note Note Date & Type Note Facility Evaluation note Diagnosis Hypermobility of joint- Primary Other joint derangement, not elsewhere classified, unspecified site documented in this encounter [facility] Instructions Note Date & Type Note Facility Instructions Not on filedocumented in this en counter [facility] Summary Purpose Family History No Family History [...] CONSULT TO MEDICAL GENETICS - GENERAL OFFICE/OUTPATIENT [facility] 60 MINUTES MEDICAL GENETICS COUNSELING EACH 30 MINUTES Will Dupree DO [address] [place] [address] [facility] [address] [place] [address] Referral ID Status Reason Start Date Expiration Date Visits Requested Visits Authorized [id number] Pending Review PCP Requested Referral Auto-Generate d Referral 10/19/2023 10/18/2024 1 1 Additional Source Comments INFORMATION SOURCE (unrecogn ized section and content) DATE CREATED AUTHOR 04/12/2018 [facility] DATE CREATED AUTHOR AUTHOR'S ORGANIZ ATION 11/26/[address] [facility] DATE CREATED AUTHOR AUTHOR'S ORGANIZ ATION 06/03/2023 [facility] DATE CREATED AUTHOR AUTHOR'S ORGANIZ ATION 10/21/2023 [facility] DATE CREATED AUTHOR AUTHOR'S ORGANIZ ATION 11/04/2023 [facility] DATE CREATED AUTHOR AUTHOR'S ORGANIZ ATION 01/10/2024 [facility] DATE CREATED AUTHOR AUTHOR'S ORGANIZ ATION 01/15/2024 [facility] Care Teams (unrecognized sec tion and content) Sales & Service Associate Relationship Specialty Start Date End Date Bia Maciel MD [address] [place] [address] PCP - General Family Medicine 09/21/22 Source Comments (unrecognize d section and content) In the event this informatio n is protected by the Federal Confidentiality of Alcohol and Drug Abuse Patient Records regulations: The Federal rules restrict any use of the information to criminally investigate or prosecute any alcohol or drug abuse patient.[facility] Reason for Visit (unrecogniz ed section and content) Reason Comments Referral Request Retail Coordinator FOR RECORDS PERTAINING TO PATIENTS WHO ARE [...] BE BASED ON THE PRIMARY CLINICAL RECORDS. [facility] [email or web address] [facility]. provides no warranty or guarantee of the accuracy or completeness of information in this document.
[2024-01-16 10:37] VITALS: BP 138/96; PULSE 80; TEMP 36.7; O2SAT 97
[2024-01-16] MEDS: BUPIVACAINE HCL 0.25% PF 25 MG/10 ML VIAL 8 ML INJ (11:20)
[2024-01-16] MEDS: LIDOCAINE HCL 2% 400 MG/20 ML MDV INJ (11:20)
[2024-01-16 11:21] VITALS: BP 127/73; BP 129/71; PULSE 65; PULSE 71; O2SAT 98
--- NOTE | 2024-01-16 11:24 | W.PM.PROCNOT ---
Date of procedure: 01/16/24 Pre-op diagnosis: Pain due to lumbar spondylosis without myelopathy Post-op diagnosis: same as pre-op Procedure: Procedure: Bilateral L4-5, L5-S1 medial branch block Medications: Bupivacaine 0.25% 6cc The patient was seen and examined in the preoperative holding area.? An informed consent was obtained and placed on the chart.? The patient was brought to the medical procedure unit and placed in the prone position.? A timeout was completed verifying correct patient, procedure site, positioning, plan, and special equipment.? Using aseptic technique, the needle was placed at left L4. Under direct fluoroscopic visualization a Quincke-tipped spinal needle was advanced to the junction of the superior articulating process with the transverse process at the designated medial branch segment.? Preceded by negative aspiration, the above-mentioned injectate was placed in 1 mL aliquots.? The procedure was repeated at left L5, S1.? The needle was removed and insertion site was covered. The same procedure, at the same levels, was completed on the right side. The patient was taken to the postprocedural recovery area and monitored for an appropriate length of time before found suitable for discharge in the company of a responsible adult. Anesthesia: Local Surgeon: Jefferson York Pathology: none sent Condition: stable Disposition: no change
== END 2024-01-16 11:28 | disposition home or self-care (01) ==
LOC: SURGOUT 09:55
PROVIDERS: PCP Family Medicine; Visit Provider Anesthesiology
DX: M47.816 Spondylosis without myelopathy or radiculopathy, lumbar region (principal)
CPT/HCPCS: 64493; 64494; J0665

== ENCOUNTER 2024-01-18 11:05 | Outpatient (OUT) | payer OTHER, SELFPAY ==
--- OUTSIDE RECORDS SUMMARY | 2024-01-18 11:11 | XMS_ITS | CCD ---
Author Organization [facility] Care Team Providers Care Leadlighter Name Role Phone SHIRAROSLYN GREERON Unavailable Unavailable [...] Unavailable GABRIELLEY, DR AMEZQUITA Primary Care Unavailable OSEI, DR AMEZQUITA Consulting Unavailable OSEI, DR AMEZQUITA Primary Care Unavailable MICHELLE WHITNEY Admitting Unavailable DEVONTE, MICHELLE Attending Unavailable AUDREY ROWE Consulting Unavailable MICHELLE WHITNEY Consulting Unavailable OSEI, DR AMEZQUITA Primary Care Unavailable PAY, DR ODOM Admitting Unavailable PAY, DR ODOM Attending Unavailable GRECHNYTODD Consulting Unavailable OSEI, DR AMEZQUITA Admitting Unavailable GABRIELLEY, DR AMEZQUITA Attending Unavailable OSEI, DR AMEZQUITA Primary Care Unavailable OSEI, DR AMEQZUITA Consulting Unavailable WEST, DR SANDRA Ahmadi Consulting [...] Unavailable Bia Maciel MD Primary Care Provider [phone] JAROD WEEKS Attending Unavailable BIA MACIEL [...] oxyCODONE; Translations: [OXYCODONE-ACETAM INOPHEN] Drug Allergy 8 [facility] Repository (1 source) Acetaminophen / oxyCODONE Drug Allergy 5 Repository (3 sources) oxyCODONE; Translations: [OXYCODONE HCL] [...] the morning. 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] Onset: 11-25-2021 Episodic Other [...] disease (2 sources) Encounter for immunization; Translations: [COUNTER HELPER antibody positive] Onset: 11-25-2021 09-21-2022 Episodic Nausea [...] 01-14-20 ABSOLUTE BASOPHIL 0.1 X10E9/L Normal 0.0-0.2 [facility] Comment on above: Performed By: #### C BCA, FEPR, 2275-08, 2283-12, 2132-01 #### [facility] ([id number]) [address], [address] [place] [address] ABSOLUTE NEUTROPHIL 6.6 X10E9/L Normal 1.5-6.6 [facility] Comment on above: Performed By: #### C BCA, FEPR, 2275-08, 2283-12, 2132-01 #### [facility] ([id number]) [address], [address] [place] [address] Basophils/100 WBC (Bld) 0.6 % Normal [facility] Comment on above: Performed By: #### C BCA, FEPR, 2275-08, 2283-12, 2132-01 #### [facility] ([id number]) [address], [address] [place] [address] Eosinophils (Bld) [#/Vol] 0.2 10*3/uL Normal 0.0-0.4 [facility] Comment on above: Performed By: #### C BCA, FEPR, 2275-08, 2283-12, 2132-01 #### [facility] ([id number]) [address], [facility] [address] [place] [address] Eosinophils/100 WBC (Bld) 1.7 % Normal [facility] Comment on above: Performed By: #### C BCA, FEPR, 2275-08, 2283-12, 2132-01 #### [facility] ([id number]) [address] [place] [address] Erythrocyte distribution width (RBC) [Ratio] 13.7 % Normal 11.5-15.0 [facility] Comment on above: Performed By: #### C BCA, FEPR, 2275-08, 2283-12, 2132-01 #### [facility] ([id number]) [address] [address] [place] [address] Hematocrit (Bld) [Volume fraction] 40.3 % Normal 35-47 [facility] Comment on above: Performed By: #### C BCA, FEPR, 2275-08, 2283-12, 2132-01 #### [facility] ([id number]) [address] [place] [address] Hemoglobin (Bld) [Mass/Vol] 13.9 g/dL Normal 11.7-15.5 [facility] Comment on above: Performed By: #### C BCA, FEPR, 2275-08, 2283-12, 2132-01 #### [facility] ([id number]) [address] [place] [address] Lymphocytes (Bld) [#/Vol] 2.1 10*3/uL Normal 1.0-3.5 [facility] Comment on above: Performed By: #### C BCA, FEPR, 2275-08, 2283-12, 2132-01 #### [facility] ([id number]) [address], [address] [place] [address] Lymphocytes/100 WBC (Bld) 21.2 % Normal [facility] Comment on above: Performed By: #### C BCA, FEPR, 2275-08, 2283-12, 2132-01 #### [facility] ([id number]) [address], [address] [place] [address] MCH (RBC) [Entitic mass] 32.6 pg Normal 27-34 [facility] Comment on above: Performed By: #### Raul BCA, FEPR, 2275-08, 2283-12, 2132-01 #### [facility] ([id number]) [address], [address] [place] [address] MCHC (RBC) [Mass/Vol] 34.4 g/dL Normal 32-36 [facility] Comment on above: Performed By: #### C BCA, FEPR, 2275-08, 2283-12, 2132-01 #### [facility] ([id number]) [address], [facility] [address] [place] [address] MCV (RBC) [Entitic vol] 95 fL Normal 80-100 [facility] Comment on above: Performed By: #### C BCA, FEPR, 2275-08, 2283-12, 2132-01 #### [facility] ([id number]) [address], [address] [place] [address] Monocytes (Bld) [#/Vol] 0.9 10*3/uL Normal 0-0.9 [facility] Comment on above: Performed By: #### C BCA, FEPR, 2275-08, 2283-8, 2132-01 #### [facility] ([id number]) [address], [address] [place] [address] Monocytes/100 WBC (Bld) 9.1 % Normal [facility] Comment on above: Performed By: #### C BCA, FEPR, 6-4, 2283-8, 2132-01 #### [facility] ([id number]) [address], [address] [place] [address] Neutrophils/100 WBC (Bld) 67.4 % Normal [facility] Comment on above: Performed By: #### C BCA, FEPR, 2275-4, 2283-, 2132-01 #### [facility] ([id number]) [address], [address] [place] [address] Platelet mean volume (Bld) [Entitic vol] 7.2 fL Normal 7-12 [facility] Comment on above: Performed By: #### C BCA, FEPR, 2275-4, 2283-8, 2132-01 #### [facility] ([id number]) [address], [address] [place] [address] Platelets (Bld) [#/Vol] 372 10*3/uL Normal 150-450 [facility] Comment on above: Performed By: #### C BCA, FEPR, 2275-4, 2283-12, 2132-01 #### [facility] ([id number]) [address], [address] [place] [address] RBC COUNT 4.26 X10E12/L Normal 3.80-5.20 [facility] Comment on above: Performed By: #### C BCA, FEPR, 6-4, 2283-8, 2132-01 #### [facility] ([id number]) [address], [address] [place] [address] WBC (Bld) [#/Vol] 9.7 10*3/uL Normal 4.0-11.0 [facility] Comment on above: Performed By: #### C BCA, FEPR, 6-4, 2283-8, 2132-01 #### [facility] ([id number]) [address], [address] [place] [address] FERRITINon 01-14-2024 Ferritin [Mass/Vol] 58 ng/mL Normal 11-307 [facility] Comment on above: Performed By: #### C BCA, FEPR, 2275-4, 2283-8, 2132-01 #### [facility] ([id number]) [address], [address] [place] [address] Folate [Mass/Vol]on 01-14-20 24 FOLIC ACID 7.9 ng/mL Normal >5.8 [facility] Comment on above: Result Comment: NEW REFERENCE RANGE Performed By: #### C BCA, FEPR, 2275-4, 2283-8, 2132-01 #### [facility] ([id number]) [address], [address] [place] [address] IRON PROFILEon 01-14-2024 Iron [Mass/Vol] 147 ug/dL Normal 50-170 [facility] Comment on above: Performed By: #### C BCA, FEPR, 2275-4, 8, 2132-01 #### [facility] ([id number]) [address], [address] [place] [address] IRON BINDING 370 ug/dL Normal 250-425 [facility] Comment on above: Performed By: #### C BCA, FEPR, 6-4, 2283-8, 2132-01 #### [facility] ([id number]) [address], [address] [place] [address] IRON SATURATION 40 % SATURATION Normal 15-50 [facility] Comment on above: Performed By: #### C BCA, FEPR, 2276-4, 2283-12, 2132-01 #### [facility] ([id number]) [address], [address] [place] [address] VITAMIN B12on 01-14-2024 Cobalamin (Vitamin B12) [Mass/Vol] 167 pg/mL Low 180-914 [facility] Comment on above: Performed By: #### C BCA, FEPR, 2275-08, 2132-01, 2283-12 #### [facility] ([id number]) [address], [address] [place] [address] XR HIPS BILAT W OR WO PELVIS [...] Hou MD on 09/13/2023 9:36 PM Normal [facility] CBC AND AUTO DIFFon 09-10-19 24 ABSOLUTE BASOPHIL 0.1 X10E9/L Normal 0.0-0.2 [facility] Comment on above: Performed By: #### C BCA, FEPR, 2275-08, 2132-01, 2283-12 #### [facility] ([id number]) [address], [address] [place] [address] ABSOLUTE NEUTROPHIL 3.8 X10E9/L Normal 1.5-6.6 [facility] Comment on above: Performed By: #### C BCA, FEPR, 2275-08, 2132-01, 2283-12 #### [facility] ([id number]) [address], [address] [place] [address] Basophils/100 WBC (Bld) 0.9 % Normal [facility] Comment on above: Performed By: #### C BCA, FEPR, 2275-08, 2132-01, 2283-12 #### [facility] ([id number]) [address], [address] [place] [address] Eosinophils (Bld) [#/Vol] 0.1 10*3/uL Normal 0.0-0.4 [facility] Comment on above: Performed By: #### C BCA, FEPR, 2275-08, 2132-01, 2283-12 #### [facility] ([id number]) [address], [address] [place] [address] Eosinophils/100 WBC (Bld) 1.5 % Normal [facility] Comment on above: Performed By: #### C BCA, FEPR, 2275-08, 2132-01, 2283-12 #### [facility] ([id number]) [address], [address] [place] [address] Erythrocyte distribution width (RBC) [Ratio] 13.0 % Normal 11.5-15.0 [facility] Comment on above: Performed By: #### C BCA, FEPR, 2275-08, 2132-01, 2283-12 #### [facility] ([id number]) [address], [address] [place] [address] Hematocrit (Bld) [Volume fraction] 38.3 % Normal 35-47 [facility] Comment on above: Performed By: #### C BCA, FEPR, 2275-08, 2132-01, 2283-12 #### [facility] ([id number]) [address], [address] [place] [address] Hemoglobin (Bld) [Mass/Vol] 13.0 g/dL Normal 11.7-15.5 [facility] Comment on above: Performed By: #### C BCA, FEPR, 2275-08, 2132-01, 2283-12 #### [facility] ([id number]) [address], [address] [place] [address] Lymphocytes (Bld) [#/Vol] 1.5 10*3/uL Normal 1.0-3.5 [facility] Comment on above: Performed By: #### C BCA, FEPR, 2275-08, 2132-01, 2283-12 #### [facility] ([id number]) [address], [address] [place] [address] Lymphocytes/100 WBC (Bld) 25.0 % Normal [facility] Comment on above: Performed By: #### C BCA, FEPR, 2275-08, 2132-01, 2283-12 #### [facility] ([id number]) [address], [address] [place] [address] MCH (RBC) [Entitic mass] 31.4 pg Normal 27-34 [facility] Comment on above: Performed By: #### C BCA, FEPR, 2275-08, 2132-01, 2283-12 #### [facility] ([id number]) [address], [address] [place] [address] MCHC (RBC) [Mass/Vol] 34.1 g/dL Normal 32-36 [facility] Comment on above: Performed By: #### C BCA, FEPR, 2275-08, 2132-01, 2283-12 #### [facility] ([id number]) [address], [address] [place] [address] MCV (RBC) [Entitic vol] 92 fL Normal 80-100 [facility] Comment on above: Performed By: #### C BCA, FEPR, 2275-08, 2132-01, 2283-12 #### [facility] ([id number]) [address], [address] [place] [address] Monocytes (Bld) [#/Vol] 0.5 10*3/uL Normal 0-0.9 [facility] Comment on above: Performed By: #### C BCA, FEPR, 2275-08, 2132-01, 2283-12 #### [facility] ([id number]) [address], [address] [place] [address] Monocytes/100 WBC (Bld) 8.6 % Normal [facility] Comment on above: Performed By: #### C BCA, FEPR, 2275-08, 2132-01, 2283-12 #### [facility] ([id number]) [address], [address] [place] [address] Neutrophils/100 WBC (Bld) 64.0 % Normal [facility] Comment on above: Performed By: #### C BCA, FEPR, 2275-08, 2132-01, 2283-12 #### [facility] ([id number]) [address], [address] [place] [address] Platelet mean volume (Bld) [Entitic vol] 7.6 fL Normal 7-12 [facility] Comment on above: Performed By: #### C BCA, FEPR, 2275-08, 2132-01, 2283-12 #### [facility] ([id number]) [address], [address] [place] [address] Platelets (Bld) [#/Vol] 408 10*3/uL Normal 150-450 [facility] Comment on above: Performed By: #### C BCA, FEPR, 2275-08, 2132-01, 2283-12 #### [facility] ([id number]) [address], [address] [place] [address] RBC COUNT 4.16 X10E12/L Normal 3.80-5.20 [facility] Comment on above: Performed By: #### C BCA, FEPR, 2275-08, 2132-01, 2283-12 #### [facility] ([id number]) [address], [address] [place] [address] WBC (Bld) [#/Vol] 6.0 10*3/uL Normal 4.0-11.0 [facility] Comment on above: Performed By: #### C BCA, FEPR, 2275-08, 2132-01, 2283-12 #### [facility] ([id number]) [address], [address] [place] [address] FERRITINon 09-10-2023 Ferritin [Mass/Vol] 10 ng/mL Low 11-307 [facility] Comment on above: Performed By: #### C BCA, FEPR, 2275-08, 2132-01, 2283-12 #### [facility] ([id number]) [address], [address] [place] [address] Folate [Mass/Vol]on 09-10-19 24 FOLIC ACID 10.9 ng/mL Normal >5.8 [facility] Comment on above: Result Comment: NEW REFERENCE RANGE Performed By: #### C BCA, FEPR, 2275-08, 2132-01, 2283-12 #### [facility] ([id number]) [address], [address] [place] [address] IRON PROFILEon 09-10-2023 Iron [Mass/Vol] 92 ug/dL Normal 50-170 [facility] Comment on above: Performed By: #### C BCA, FEPR, 2275-08, 2132-01, 2283-12 #### [facility] ([id number]) [address], [address] [place] [address] IRON BINDING 421 ug/dL Normal 250-425 [facility] Comment on above: Performed By: #### C BCA, FEPR, 2275-08, 2132-9, 2284-8 #### [facility] ([id number]) [address], [address] [place] [address] IRON SATURATION 22 % SATURATION Normal 15-50 [facility] Comment on above: Performed By: #### C BCA, FEPR, 2276-4, 2132-9, 2284-8 #### [facility] ([id number]) [address] [place] [address] VITAMIN B12on 09-10-2023 Cobalamin (Vitamin B12) [Mass/Vol] 195 pg/mL Normal 180-914 [facility] Comment on above: Performed By: #### C BCA, FEPR, 2276-4, 2132-9, 2284-8 #### [facility] ([id number]) [address] [place] [address] [employer] ANITBODY TESTon 022 [facility] Antibodies <1.0 Normal [facility] Comment on above: Result Comment: Refe [...] 2014;52:90-100. 2. Luzmaria DUVAL et al. PNAS 2013;110(59);70033-12029. 3. Joo Escudero et al. Neurology 2006;67:505-507. This test was developed and its performance characteristics determined by [facility]. It has not been cleared or approved by the Food and Drug Administration. Performed By: #### M ERIK #### [facility] [address] [place] [address] Dr. Evens Bowden ACETYLCHOLINE RECEPTOR AB [place] OFILEon 11-10-2021 AChR Binding Abs, Serum <0.03 Normal 0.00-0.24 Comment on above: Result Comment: Nega tive: 0.00 - 0.24 Borderline: 0.25 - 0.40 Positive: >0.40 Performed By: #### JULIA GARCIA UMICRO #### [facility] [address] [place] [address] Patria Mis AChR Blocking Abs, Serum 10 % Normal 0-25 Comment on above: Result Comment: Nega tive: 0 - 25 Borderline: 26 - 30 Positive: >30 Performed By: #### JULIA GARCIA UMICRO #### [facility] [address] [place] [address] Patria Mis AChR Modulating Ab CANRGT Normal [facility] Comment on above: Result Comment: Test not performed. Unable to perform test due to current unavailability of reagents or discontinuation of test. Negative: <21 Equivocal: 21 - 25 Positive: >25 Effective March 25, 2021, test [id number] AChR Modulating Abs, Serum was made non-orderable due to an ongoing reagent issue. Specimens are stored frozen and can be referenced to [facility] to provide an AChR Modulating Ab result. Please contact [facility] Customer Service to add on [phone] Acetylcholine Receptor Modulating Antibody, if warranted. Performed By: #### JULIA GARCIA UMICRO #### [facility] [address] [place], [place] [id number] Patria Mis LYME DISEASE AB EIA W REFLEX on 11-04-2021 Lyme Total Antibody,EIA Negative Normal Negative Comment on above: Result Comment: Lyme Antibody Negative No laboratory evidence of infection with B. burgdorferi (Lyme disease). Negative results may occur in patients recently infected (greater than or equal to 14 days) with B. burgdorferi. If recent infection is suspected, repeat testing on a new sample collected in 7 to 14 days is recommended. Performed By: #### JULIA GARCIA UMICRO #### [facility] [address] [place] [address] Patria Abebe AMISHA EIA W/REFLEX 5 BIOMARKER Son 11-03-2021 AMISHA Direct Positive Abnormal Negative Comment on above: Performed By: #### JULIA GARCIA UMICRO #### [facility] [address] [address] Patria Abebe Anti-DNA (DS) Ab Qn <1 Normal 0-9 [facility] Comment on above: Result Comment: Nega tive <5 Equivocal 5 - 9 Positive >9 Performed By: #### JULIA GARCIA UMICRO #### [facility] [address] [address] Patria Abebe COUNTER HELPER Antibodies 2.4 AI Critically high 0.0-0.9 [facility] Comment on above: Performed By: #### JULIA GARCIA UMICRO #### [facility] [address] [address] Patria Abebe SEE BELOW: Comment Normal Comment on above: Result Comment: Auto antibody [...] Sm (anti-Hunter) SLE 15 - 30% --------- COUNTER HELPER Mixed Connective Tissue Disease 95% (U1 nRNP, SLE 30 - 50% anti-ribonucleoprotein) Polymyositis and/or Dermatomyositis 20% --------- Scl-70 (antiDNA Scleroderma (diffuse) 20 - 35% topoisomerase) Crest 13% --------- Kristie-1 Polymyositis and/or Dermatomyositis 20 - 40% --------- Centromere B Scleroderma - Crest variant 80% Performed By: #### JULIA GARCIA UMICRO #### [facility] [address] [place] [address] Patria Mis Sjogren's Anti-SS-A <0.2 Normal 0.0-0.9 [facility] Comment on above: Performed By: #### JULIA GARCIA UMICRO #### [facility] [address] [place] [address] Patria Mis Sjogren's Anti-SS-B <0.2 Normal 0.0-0.9 [facility] Comment on above: Performed By: #### JULIA GARCIA UMICRO #### [facility] [address] [place] [address] Patria Mis Hunter Antibodies <0.2 Normal 0.0-0.9 [facility] Comment on above: Performed By: #### JULIA GARCIA UMICRO #### [facility] [address] [place] [address] Patria Abebe CMV AB, IGGon 11-03-2021 Cytomegalovirus (CMV) Ab, IgG 5.70 U/mL Critically high 0.00-0.59 Comment on above: Result Comment: Nega tive <0.60 Equivocal 0.60 - 0.69 Positive >0.69 Performed By: #### JULIA GARCIA UMICRO #### [facility] [address] [place] [address] Patria Abebe SHIRA-MOTA VIRUS (EBV) AB PROFILEon 11-03-2021 EBV Ab VCA, IgG 122.0 U/mL Critically high 0.0-17.9 [facility] Comment on above: Result Comment: Nega tive <18.0 Equivocal 18.0 - 21.9 Positive >21.9 Performed By: #### Hugo VALENCIA #### [facility] [address] [place] [address] Dr. Evens Bowedn EBV Ab VCA, IgM <36.0 Normal 0.0-35.9 [facility] Comment on above: Result Comment: Nega tive <36.0 Equivocal 36.0 - 43.9 Positive >43.9 Performed By: #### Hugo VALENCIA #### [facility] [address] [address] [address] Evens Bowden EBV Nuclear Antigen Ab, IgG 244.0 U/mL Critically high 0.0-17.9 Comment on above: Result Comment: Nega tive <18.0 Equivocal 18.0 - 21.9 Positive >21.9 Performed By: #### Hugo VALENCIA #### [facility] [address] [place] [address] Dr. Evens Bowden Interpretation: Comment Normal [facility] Comment on above: Result Comment: EBV Interpretation [...] antibodies to EBNA. Performed By: #### Hugo VLAENCIA #### [facility] [address] [place] [address] Dr. Evens Bowden RHEUMATOID FACTORon 11-04-19 RA Latex Turbid. <10.0 Normal <14.0 [facility] Comment on above: Performed By: #### Hugo VALENCIA #### [facility] [address] [place] [address] Dr. Evens Bowden CPKon 11-02-2021 CK [Catalytic activity/Vol] 150 U/L Normal 26-192 Comment on above: Performed By: #### Raul K #### [facility] [address] [place] [address] Dr. Evens Bowden MRI BRAIN WO W [...] by: SANDRA VERDIN Date: 2021-10-01 13:31 Normal MRI CSPINE WO W CONon 2021 MRI [...] SANDRA VERDIN Date: 2021-10-01 13:52 Normal [facility] INSULINon 09-11-2021 Insulin 5.2 uIU/mL Normal 2.6-24.9 [facility] Comment on above: Performed By: #### P JULIA MURRAY UMICRO #### [facility] [address] [address] Patria Abebe CBC AUTO DIFFon 09-10-2021 BASO # 0.0 103/ul Normal 0.0-0.1 Comment on above: Performed By: #### C BC #### [facility] [address] [address] [address] Evens Bowden Basophils/100 WBC (Bld) 0.7 % Normal 0.2-2.0 Comment on above: Performed By: #### C BC #### [facility] [address] [place] [address] Dr. Evens Bowden EO # 0.1 103/ul Normal 0.0-0.7 Comment on above: Performed By: #### C BC #### [facility] [address] [place] [address] Dr. Evens Bowden Eosinophils/100 WBC (Bld) 2.6 % Normal 0.9-7.0 Comment on above: Performed By: #### C BC #### [facility] [address] [place] [address] Dr. Evens Bowden Erythrocyte distribution width (RBC) [Ratio] 13.7 % Normal 11.0-15.0 Comment on above: Performed By: #### C BC #### [facility] [address] [place] [address] Dr. Evens Bowden Hematocrit (Bld) [Volume fraction] 33.2 % Critically low 36.0-48.0 Comment on above: Performed By: #### C BC #### [facility] [address] [place] [address] Dr. Evens Bowden Hemoglobin (Bld) [Mass/Vol] 10.4 g/dL Critically low 12.0-16.0 Comment on above: Performed By: #### C BC #### [facility] [address] [place] [address] Dr. Evens Bowden IG # 0.02 10e3/ul Normal 0.00-0.03 Comment on above: Performed By: #### C BC #### [facility] [address] [place] [address] Dr. Evens Bowden IG % 0.4 % Normal 0.0-0.5 Comment on above: Performed By: #### C BC #### [facility] [address] [place] [address] Dr. Evens Bowden LYMPH # 2.0 103/ul Normal 1.2-3.8 Comment on above: Performed By: #### C BC #### [facility] [address] [place] [address] Dr. Evens Bowden Lymphocytes/100 WBC (Bld) 37.7 % Normal 20.5-60.0 Comment on above: Performed By: #### C BC #### [facility] [address] [place] [address] Dr. Evens Bowden MANUAL DIFF REQ NO Normal [facility] Comment on above: Performed By: #### C BC #### [facility] [address] [place] [address] Dr. Evens Bowden MCH (RBC) [Entitic mass] 27.2 pg Normal 26.7-34.0 Comment on above: Performed By: #### C BC #### [facility] [address] [place] [address] Dr. Evens Bowden MCHC (RBC) [Mass/Vol] 31.3 g/dL Normal 29.9-35.2 Comment on above: Performed By: #### C BC #### [facility] [address] [place] [address] Dr. Evens Bowden MCV (RBC) [Entitic vol] 86.9 fL Normal 81.0-99.0 Comment on above: Performed By: #### C BC #### [facility] [address] [place] [address] Dr. Evens Bowden MONO # 0.4 103/ul Normal 0.3-0.8 [facility] Comment on above: Performed By: #### C BC #### [facility] [address] [place] [address] Dr. Evens Bowden Monocytes/100 WBC (Bld) 7.1 % Normal 1.7-12.0 [facility] Comment on above: Performed By: #### C BC #### [facility] [address] [place] [address] Dr. Evens Bowden NEUT # 2.8 103/ul Normal 1.4-6.5 [facility] Comment on above: Performed By: #### C BC #### [facility] [address] [place] [address] Dr. Evens Bowden Neutrophils/100 WBC (Bld) 51.5 % Normal 43.0-75.0 [facility] Comment on above: Performed By: #### C BC #### [facility] [address] [place] [address] Dr. Evens Bowden Platelet mean volume (Bld) [Entitic vol] 8.6 fL Critically low 9.5-13.5 [facility] Comment on above: Performed By: #### C BC #### [facility] [address] [place] [address] Dr. Evens Bowden PLT 428 103/ul Normal 150-450 [facility] Comment on above: Performed By: #### C BC #### [facility] [address] [place] [address] Dr. Evens Bowden RBC 3.82 106/ul Critically low 4.20-5.40 [facility] Comment on above: Performed By: #### C BC #### [facility] [address] [place] [address] Dr. Evens Bowden WBC 5.4 103/ul Normal 4.0-11.0 [facility] Comment on above: Performed By: #### C BC #### [facility] [address] [place] [address] Dr. Evens Bowden CRPon 09-10-2021 CRP [Mass/Vol] mg/L Normal <=1.0 [facility] Comment on above: Performed By: #### C BC #### [facility] [address] [address] [address] Evens Bowden FREE THYROXINE INDEX T7on FTI 2.52 Normal Comment on above: Performed By: #### C BC #### [facility] [address] [address] [address] Evens Bowden T3U 35.0 % Normal 23.5-40.5 Comment on above: Performed By: #### C BC #### [facility] [address] [address] [address] Evens Bowden T4 [Mass/Vol] 7.20 ug/dL Normal 5.53-11.00 [facility] Comment on above: Performed By: #### C BC #### [facility] [address] [address] [address] Evens Bowden GLYCOHEMOGLOBIN A1Con 2021 ADA RECOMMENDATION ADA THERAPEUTIC TARG ET 6.0 - 7.0 ACTION SUGGESTED > 7.0 Normal Comment on above: Performed By: #### P JULIA MURRAY UMICRO #### [facility] [address] [address] Patria Mis Glucose [Mass/Vol] 117 mg/dL Normal [facility] Comment on above: Performed By: #### JULIA GARCIA UMICRO #### [facility] [address] [place] [address] Patria Mis HbA1c (Bld) [Mass fraction] 5.7 % Normal <=6.0 [facility] Comment on above: Performed By: #### JULIA GARCIA UMICRO #### [facility] [address] [place] [address] Patria Mis IRONon 09-10-2021 Iron [Mass/Vol] 46.0 ug/dL Normal 37.0-170.0 [facility] Comment on above: Performed By: #### I MULUGETA PEARSON #### [facility] [address] [address] [address] Evens Bowden LIPID PROFILEon 09-10-2021 CHOL-HDL RATIO NORM SEE BELOW Normal [facility] Comment on above: Result Comment: 3.3 - 4.4 LOW RISK 4.4 - 7.1 AVERAGE RISK 7.1 - 11.0 MODERATE RISK >11.0 HIGH RISK Performed By: #### C MP, TSH, T7, LIPID, CRP #### [facility] [address] [address] [address] Evens Bowden Cholesterol [Mass/Vol] 130 mg/dL Normal <=200 Comment on above: Performed By: #### C MP, TSH, T7, LIPID, CRP #### [facility] [address] [address] [address] Evens Bowden Cholesterol in HDL [Mass/Vol] 53 mg/dL Normal 40-60 Comment on above: Performed By: #### C MP, TSH, T7, LIPID, CRP #### [facility] [address] [address] [address] Evens Bowden Cholesterol in LDL [Mass/Vol] 69.2 mg/dL Normal Comment on above: Performed By: #### C MP, TSH, T7, LIPID, CRP #### [facility] [address] [address] [address] Evens Bowden Cholesterol.total/C holesterol in HDL [Mass ratio] 2.5 {ratio} Normal Comment on above: Performed By: #### C MP, TSH, T7, LIPID, CRP #### [facility] [address] [address] [address] Evens Bowden HDL NORMAL > or = 60 mg/dl - LO W CARDIOVASCULAR RISK <40 mg/dl - HIGH CARDIOVASCULAR RISK Normal Comment on above: Performed By: #### C MP, TSH, T7, LIPID, CRP #### [facility] [address] [address] [address] Evens Bowden LDL CALC NORMAL SEE BELOW Normal [facility] Comment on above: Result Comment: <100 mg/dl OPTIMAL 100 - 129 mg/dl NEAR OR ABOVE OPTIMAL 130 - 159 mg/dl BORDERLINE HIGH 160 - 189 mg/dl HIGH >190 mg/dl VERY HIGH Performed By: #### C MP, TSH, T7, LIPID, CRP #### [facility] [address] [address] [address] Evens Bowden Triglyceride [Mass/Vol] 39 mg/dL Normal <=150 Comment on above: Performed By: #### C MP, TSH, T7, LIPID, CRP #### [facility] [address] [address] [address] Evens Bowden VLDL CALC 7.8 mg/dL Normal Comment on above: Performed By: #### C MP, TSH, T7, LIPID, CRP #### [facility] [address] [address] [address] Evens Bowden PROF 14(COMP METB)on 022 Albumin [Mass/Vol] 4.0 g/dL Normal 3.4-5.0 [facility] Comment on above: Performed By: #### C MP, TSH, T7, LIPID, CRP #### [facility] [address] [address] [address] Evens Bowden Albumin/Globulin [Mass ratio] 1.1 {ratio} Normal Comment on above: Performed By: #### C MP, TSH, T7, LIPID, CRP #### [facility] [address] [address] [address] Evens Bowden ALP [Catalytic activity/Vol] 84 U/L Normal 46-116 Comment on above: Performed By: #### C MP, TSH, T7, LIPID, CRP #### [facility] [address] [address] [address] Evens Bowden ALT [Catalytic activity/Vol] 33 U/L Normal 14-59 Comment on above: Performed By: #### C MP, TSH, T7, LIPID, CRP #### [facility] [address] [address] [address] Evens Bowden Anion gap [Moles/Vol] 12.1 mmol/L Normal Comment on above: Performed By: #### C MP, TSH, T7, LIPID, CRP #### [facility] [address] [address] [address] Evens Bowden AST [Catalytic activity/Vol] 18 U/L Normal 15-37 Comment on above: Performed By: #### C MP, TSH, T7, LIPID, CRP #### [facility] [address] [place] [address] Dr. Evens Bowden Bilirubin [Mass/Vol] 0.5 mg/dL Normal 0.2-1.3 Comment on above: Performed By: #### C MP, TSH, T7, LIPID, CRP #### [facility] [address] [place] [address] Dr. Evens Bowden Calcium [Mass/Vol] 8.2 mg/dL Critically low 8.5-10.1 [facility] Comment on above: Performed By: #### C MP, TSH, T7, LIPID, CRP #### [facility] [address] [place] [address] Dr. Evens Bowden Chloride [Moles/Vol] 105 mmol/L Normal 98-107 [facility] Comment on above: Performed By: #### C MP, TSH, T7, LIPID, CRP #### [facility] [address] [place] [address] Dr. Evens Bowden CO2 [Moles/Vol] 26.3 mmol/L Normal 22.0-30.0 [facility] Comment on above: Performed By: #### C MP, TSH, T7, LIPID, CRP #### [facility] [address] [place] [address] Dr. Evens Bowden Creatinine [Mass/Vol] 0.62 mg/dL Normal 0.52-1.04 Comment on above: Performed By: #### C MP, TSH, T7, LIPID, CRP #### [facility] [address] [place] [address] Dr. Evens Bowden EGFR-AF UZBEK >60 Normal >=60 [facility] Comment on above: Performed By: #### C MP, TSH, T7, LIPID, CRP #### [facility] [address] [place] [address] Dr. Evens Bowden EGFR-NON AF UZBEK >60 Normal >=60 Comment on above: Performed By: #### C MP, TSH, T7, LIPID, CRP #### [facility] [address] [place] [address] Dr. Evens Bowden Globulin (S) [Mass/Vol] 3.5 g/dL Normal Comment on above: Performed By: #### C MP, TSH, T7, LIPID, CRP #### [facility] [address] [place] [address] Dr. vEens Bowden Glucose [Mass/Vol] 90 mg/dL Normal 74-106 [facility] Comment on above: Performed By: #### C MP, TSH, T7, LIPID, CRP #### [facility] [address] [place] [address] Dr. Evens Bowden Potassium [Moles/Vol] 4.4 mmol/L Normal 3.4-5.0 Comment on above: Performed By: #### C MP, TSH, T7, LIPID, CRP #### [facility] [address] [place] [address] Dr. Evens Bowden Protein [Mass/Vol] 7.5 g/dL Normal 6.1-8.2 [facility] Comment on above: Performed By: #### C MP, TSH, T7, LIPID, CRP #### [facility] [address] [place] [address] Dr. Evens Bowden Sodium [Moles/Vol] 139 mmol/L Normal 137-145 [facility] Comment on above: Performed By: #### C MP, TSH, T7, LIPID, CRP #### [facility] [address] [place] [address] Dr. Evens Bowden Urea nitrogen [Mass/Vol] 7.0 mg/dL Normal 7.0-18.0 Comment on above: Performed By: #### C MP, TSH, T7, LIPID, CRP #### [facility] [address] [place] [address] Dr. Evens Bowden Urea nitrogen/Creatinine [Mass ratio] 11.3 mg/mg Normal Comment on above: Performed By: #### C MP, TSH, T7, LIPID, CRP #### [facility] [address] [place] [address] Dr. Evens Bowden SED RATE WESTERGRENon 2021 SED RATE 6 mm/hr Normal <=20 [facility] Comment on above: Performed By: #### M USKAB #### [facility] [address] [place] [address] Dr. Evens Bowden TSHon 09-10-2021 TSH 1.205 uIU/mL Normal 0.470-4.680 [facility] Comment on above: Performed By: #### C BC #### [facility] [address] [place] [address] Dr. Evens Bowden TSH RANGE SEE BELOW Normal Comment on above: Result Comment: <0.3 4 UIU/ml HYPERTHYROID 0.34-5.60 UIU/ml EUTHYROID >5.60 UIU/ml HYPOTHYROID Performed By: #### C BC #### [facility] [address] [place] [address] Dr. Evens Bowden VITAMIN D 25 OHon 09-10-2021 VIT D 25-OH 11.5 ng/mL Normal Comment on above: Performed By: #### I MICHEL VITPATRICIA #### [facility] [address] [place] [address] Dr. Evens Bowden VIT D RANGES SEE BELOW Normal Comment on above: Result Comment: <20 ng/mL Vit D deficient 20 - <30 ng/mL Vit D insufficient 30 - 100 ng/mL Vit D sufficient >100 ng/mL Potential Toxicity Performed By: #### I MICHEL VITAD #### [facility] [address] [place] [address] Dr. Evens Bowden VITAMIN B1 (THIAMINE)on 02-27 Vit. B1, Whole Blood 85.1 nmol/L Normal 66.5-200.0 Comment on above: Performed By: #### C BC #### [facility] [address] [place] [address] Dr. Evens Bowden CBC AUTO DIFFon 03-10-2021 BASO # 0.0 103/ul Normal 0.0-0.1 Comment on above: Performed By: #### M USKAB #### [facility] [address] [place] [address] Dr. Evens Bowden Basophils/100 WBC (Bld) 0.8 % Normal 0.2-2.0 Comment on above: Performed By: #### M USKAB #### [facility] [address] [place] [address] Dr. Evens Bowden EO # 0.2 103/ul Normal 0.0-0.7 Comment on above: Performed By: #### M KAB #### [facility] [address] [place] [address] Dr. Evens Bowden Eosinophils/100 WBC (Bld) 3.4 % Normal 0.9-7.0 Comment on above: Performed By: #### M KAB #### [facility] [address] [place] [address] Dr. Evens Bowden Erythrocyte distribution width (RBC) [Ratio] 13.2 % Normal 11.0-15.0 Comment on above: Performed By: #### M MASOODB #### [facility] [address] [place] [address] Dr. Evens Bowden Hematocrit (Bld) [Volume fraction] 34.2 % Critically low 36.0-48.0 Comment on above: Performed By: #### M USKAB #### [facility] [address] [place] [address] Dr. Evens Bowden Hemoglobin (Bld) [Mass/Vol] 11.2 g/dL Critically low 12.0-16.0 Comment on above: Performed By: #### M KAB #### [facility] [address] [place] [address] Dr. Evens Bowden IG # 0.01 10e3/ul Normal 0.00-0.03 Comment on above: Performed By: #### M MASOODB #### [facility] [address] [place] [address] Dr. Evens Bowden IG % 0.2 % Normal 0.0-0.5 Comment on above: Performed By: #### M MASOODB #### [facility] [address] [place] [address] Dr. Evens Bowden LYMPH # 1.6 103/ul Normal 1.2-3.8 Comment on above: Performed By: #### M KAB #### [facility] [address] [place] [address] Dr. Evens Bowden Lymphocytes/100 WBC (Bld) 32.5 % Normal 20.5-60.0 Comment on above: Performed By: #### M MASOODB #### [facility] [address] [place] [address] Dr. Evens Bowden MANUAL DIFF REQ NO Normal [facility] Comment on above: Performed By: #### M MASOODB #### [facility] [address] [place] [address] Dr. Evens Bowden MCH (RBC) [Entitic mass] 30.6 pg Normal 26.7-34.0 Comment on above: Performed By: #### M MASOODB #### [facility] [address] [place] [address] Dr. Evens Bowden MCHC (RBC) [Mass/Vol] 32.7 g/dL Normal 29.9-35.2 Comment on above: Performed By: #### M MASOODB #### [facility] [address] [place] [address] Dr. Evens Bowden MCV (RBC) [Entitic vol] 93.4 fL Normal 81.0-99.0 Comment on above: Performed By: #### M MASOODB #### [facility] [address] [place] [address] Dr. Evens Bowden MONO # 0.5 103/ul Normal 0.3-0.8 Comment on above: Performed By: #### M ERIK #### [facility] [address] [place] [address] Dr. Evens Bowden Monocytes/100 WBC (Bld) 10.7 % Normal 1.7-12.0 Comment on above: Performed By: #### Hugo CORREIAB #### [facility] [address] [place] [address] Dr. Evens Bowden NEUT # 2.6 103/ul Normal 1.4-6.5 Comment on above: Performed By: #### Hugo VALENCIA #### [facility] [address] [place] [address] Dr. Evens Bowden Neutrophils/100 WBC (Bld) 52.4 % Normal 43.0-75.0 Comment on above: Performed By: #### Hugo VALENCIA #### [facility] [address] [place] [address] Dr. Evens Bowden Platelet mean volume (Bld) [Entitic vol] 9.3 fL Critically low 9.5-13.5 Comment on above: Performed By: #### Hugo VALENCIA #### [facility] [address] [place] [address] Dr. Evens Bowden PLT 373 103/ul Normal 150-450 [facility] Comment on above: Performed By: #### Hugo VALENCIA #### [facility] [address] [place] [address] Dr. Evens Bowden RBC 3.66 106/ul Critically low 4.20-5.40 [facility] Comment on above: Performed By: #### Hugo VALENCIA #### [facility] [address] [place] [address] Dr. Evens Bowden WBC 5.0 103/ul Normal 4.0-11.0 [facility] Comment on above: Performed By: #### Hugo VALENCIA #### [facility] [address] [place] [address] Dr. Evens Bowden FOLATEon 10-12-2021 FOLATE 7.50 ng/mL Normal >=2.76 Comment on above: Performed By: #### P JULIA MURRAY UMICRO #### [facility] [address] [place] [address] Patria Mis IRON AND TIBCon 03-10-2021 % SATURATION 8.7 % Normal Comment on above: Performed By: #### JULIA GARCIA UMICRO #### [facility] [address] [place] [address] Patria Mis Iron [Mass/Vol] 29.0 ug/dL Critically low 37.0-170.0 [facility] Comment on above: Performed By: #### JULIA GARCIA UMICRO #### [facility] [address] [place] [address] Patria Mis TIBC DIRECT 332.0 ug/dL Normal 261.0-497.0 [facility] Comment on above: Performed By: #### JULIA GARCIA UMICRO #### [facility] [address] [place] [address] Patria Msi MAGNESIUMon 03-10-2021 Magnesium [Mass/Vol] 1.7 mg/dL Normal 1.6-2.3 [facility] Comment on above: Performed By: #### C BC #### [facility] [address] [place] [address] Dr. Evens Bowden PHOSPHORUSon 03-10-2021 Phosphate [Mass/Vol] 3.7 mg/dL Normal 2.5-4.5 Comment on above: Performed By: #### C BC #### [facility] [address] [place] [address] Dr. Evens Bowden PROF 14(COMP METB)on 021 Albumin [Mass/Vol] 3.6 g/dL Normal 3.5-5.0 [facility] Comment on above: Performed By: #### C BC #### [facility] [address] [place] [address] Dr. Evens Bowden Albumin/Globulin [Mass ratio] 1.1 {ratio} Normal Comment on above: Performed By: #### C BC #### [facility] [address] [place] [address] Dr. Evens Bowden ALP [Catalytic activity/Vol] 91 U/L Normal 38-126 Comment on above: Performed By: #### C BC #### [facility] [address] [address] [address] Evens Bowden ALT [Catalytic activity/Vol] 31 U/L Normal 9-52 Comment on above: Performed By: #### C BC #### [facility] [address] [place] [address] Dr. Evens Bowden Anion gap [Moles/Vol] 12.5 mmol/L Normal Comment on above: Performed By: #### C BC #### [facility] [address] [place] [address] Dr. Evens Bowden AST [Catalytic activity/Vol] 22 U/L Normal 14-36 Comment on above: Performed By: #### C BC #### [facility] [address] [place] [address] Dr. Evens Bowden Bilirubin [Mass/Vol] 0.4 mg/dL Normal 0.2-1.3 Comment on above: Performed By: #### C BC #### [facility] [address] [place] [address] Dr. Evens Bowden Calcium [Mass/Vol] 8.2 mg/dL Critically low 8.4-10.2 [facility] Comment on above: Performed By: #### C BC #### [facility] [address] [address] [address] Evens Bowden Chloride [Moles/Vol] 106 mmol/L Normal 98-107 Comment on above: Performed By: #### C BC #### [facility] [address] [place] [address] Dr. Evnes Bowden CO2 [Moles/Vol] 26.3 mmol/L Normal 22.0-30.0 [facility] Comment on above: Performed By: #### C BC #### [facility] [address] [address] [address] Evens Bowden Creatinine [Mass/Vol] 0.57 mg/dL Normal 0.52-1.04 Comment on above: Performed By: #### C BC #### [facility] [address] [address] [address] Evens Bowden EGFR-AF UZBEK >60 Normal >=60 [facility] Comment on above: Performed By: #### C BC #### [facility] [address] [address] [address] Evens Bowden EGFR-NON AF UZBEK >60 Normal >=60 Comment on above: Performed By: #### C BC #### [facility] [address] [place] [address] Dr. Evens Bowden Globulin (S) [Mass/Vol] 3.4 g/dL Normal Comment on above: Performed By: #### C BC #### [facility] [address] [place] [address] Dr. Evens Bowden Glucose [Mass/Vol] 92 mg/dL Normal 74-106 [facility] Comment on above: Performed By: #### C BC #### [facility] [address] [place] [address] Dr. Evens Bowden Potassium [Moles/Vol] 3.8 mmol/L Normal 3.4-5.0 Comment on above: Performed By: #### C BC #### [facility] [address] [place] [address] Dr. Evens Bowden Protein [Mass/Vol] 7.0 g/dL Normal 6.1-8.2 [facility] Comment on above: Performed By: #### C BC #### [facility] [address] [place] [address] Dr. Evens Bowden Sodium [Moles/Vol] 141 mmol/L Normal 137-145 [facility] Comment on above: Performed By: #### C BC #### [facility] [address] [place], [place] [id number] Dr. Evens Bowden Urea nitrogen [Mass/Vol] 7.0 mg/dL Normal 7.0-17.0 Comment on above: Performed By: #### C BC #### [facility] [address] [place] [address] Dr. Evens Bowden Urea nitrogen/Creatinine [Mass ratio] 12.3 mg/mg Normal Comment on above: Performed By: #### C BC #### [facility] [address] [place] [address] Dr. Evens Bowden VITAMIN B12on 03-10-2021 Cobalamin (Vitamin B12) [Mass/Vol] 211.0 pg/mL Critically low 239.0-931.0 Comment on above: Performed By: #### P JULIA MURRAY UMICRO #### [facility] [address] [place] [address] Patria Mis VITAMIN D 25 OHon 03-10-2021 VIT D 25-OH 15.8 ng/mL Normal Comment on above: Performed By: #### P JUILA MURRAY UMICRO #### [facility] [address] [place] [address] Patria Mis VIT D RANGES SEE BELOW Normal Comment on above: Result Comment: <20 ng/mL Vit D deficient 20 - <30 ng/mL Vit D insufficient 30 - 100 ng/mL Vit D sufficient >100 ng/mL Potential Toxicity Performed By: #### JULIA GARCIA UMICRO #### [facility] [address] [place] [address] Patria Mis VITAMIN D 25 OHon 02-10-2021 VIT D 25-OH 16.7 ng/mL Normal [facility] Comment on above: Performed By: #### M ERIK #### [facility] [address] [place] [address] Dr. Evens Bowden VIT D RANGES SEE BELOW Normal [facility] Comment on above: Result Comment: <20 ng/mL Vit D deficient 20 - <30 ng/mL Vit D insufficient 30 - 100 ng/mL Vit D sufficient >100 ng/mL Potential Toxicity Performed By: #### M USKAB #### [facility] [address] [place] [address] Dr. Evens Bowden CBC AUTO DIFFon 01-02-2021 BASO # 0.1 103/ul Normal 0.0-0.1 Comment on above: Performed By: #### C BC #### [facility] [address] [place] [address] Dr. Evens Bowden Basophils/100 WBC (Bld) 0.5 % Normal 0.2-2.0 Comment on above: Performed By: #### C BC #### [facility] [address] [place] [address] Dr. Evens Bowden EO # 0.0 103/ul Normal 0.0-0.7 Comment on above: Performed By: #### C BC #### [facility] [address] [place] [address] Dr. Evens Bowden Eosinophils/100 WBC (Bld) 0.4 % Critically low 0.9-7.0 Comment on above: Performed By: #### C BC #### [facility] [address] [place] [address] Dr. Evens Bowden Erythrocyte distribution width (RBC) [Ratio] 13.2 % Normal 11.0-15.0 Comment on above: Performed By: #### C BC #### [facility] [address] [place] [address] Dr. Evens Bowden Hematocrit (Bld) [Volume fraction] 35.3 % Critically low 36.0-48.0 Comment on above: Performed By: #### C BC #### [facility] [address] [place] [address] Dr. Evens Bowden Hemoglobin (Bld) [Mass/Vol] 11.6 g/dL Critically low 12.0-16.0 Comment on above: Performed By: #### C BC #### [facility] [address] [place] [address] Dr. Evens Bowden IG # 0.02 10e3/ul Normal 0.00-0.03 Comment on above: Performed By: #### C BC #### [facility] [address] [place] [address] Dr. Evens Bowden IG % 0.2 % Normal 0.0-0.5 Comment on above: Performed By: #### C BC #### [facility] [address] [place] [address] Dr. Evens Bowden LYMPH # 1.1 103/ul Critically low 1.2-3.8 [facility] Comment on above: Performed By: #### C BC #### [facility] [address] [place] [address] Dr. Evens Bowden Lymphocytes/100 WBC (Bld) 11.0 % Critically low 20.5-60.0 Comment on above: Performed By: #### C BC #### [facility] [address] [place] [address] Dr. Evens Bowden MANUAL DIFF REQ NO Normal [facility] Comment on above: Performed By: #### C BC #### [facility] [address] [place] [address] Dr. Evens Bowden MCH (RBC) [Entitic mass] 30.5 pg Normal 26.7-34.0 Comment on above: Performed By: #### C BC #### [facility] [address] [place] [address] Dr. Evens Bowden MCHC (RBC) [Mass/Vol] 32.9 g/dL Normal 29.9-35.2 Comment on above: Performed By: #### C BC #### [facility] [address] [place] [address] Dr. Evens Bowden MCV (RBC) [Entitic vol] 92.9 fL Normal 81.0-99.0 Comment on above: Performed By: #### C BC #### [facility] [address] [place] [address] Dr. Evens Bowden MONO # 0.6 103/ul Normal 0.3-0.8 Comment on above: Performed By: #### C BC #### [facility] [address] [address] [address] Evens Bowden Monocytes/100 WBC (Bld) 6.2 % Normal 1.7-12.0 Comment on above: Performed By: #### C BC #### [facility] [address] [address] [address] Evens Bowden NEUT # 8.4 103/ul Critically high 1.4-6.5 [facility] Comment on above: Performed By: #### C BC #### [facility] [address] [address] [address] Evens Bowden Neutrophils/100 WBC (Bld) 81.7 % Critically high 43.0-75.0 Comment on above: Performed By: #### C BC #### [facility] [address] [place] [address] Dr. Evens Bowden Platelet mean volume (Bld) [Entitic vol] 10.0 fL Normal 9.5-13.5 Comment on above: Performed By: #### C BC #### [facility] [address] [address] [address] Evens Bowden PLT 317 103/ul Normal 150-450 [facility] Comment on above: Performed By: #### C BC #### [facility] [address] [address] [address] Evens Bowden RBC 3.80 106/ul Critically low 4.20-5.40 [facility] Comment on above: Performed By: #### C BC #### [facility] [address] [place] [address] Dr. Evens Bowden WBC 10.2 103/ul Normal 4.0-11.0 [facility] Comment on above: Performed By: #### C BC #### [facility] [address] [place] [address] ABD/PELVIS WO CONon [...] AUDREY ROWE Date: 2021-01-02 10:13 Normal [facility] CULTURE URINEon 01-02-2021 CULTURE URINE Culture Observations : MODERATE GROWTH OF MIXED GENITAL SHEYLA. NO POTENTIAL PATHOGENS SEEN. Normal [facility] Comment on above: Performed By: #### M USKAB #### [facility] [address] [address] [address] Evens MENDOZA URINE PROFILEon 1 Bilirubin Ql (U) SMALL Abnormal NEGATIVE [facility] Comment on above: Performed By: #### P JULIA MURRAY UMICRO #### [facility] [address] [address] Patria Abebe Clarity (U) SL CLOUDY Abnormal CLEAR [facility] Comment on above: Performed By: #### P JULIA MURRAY UMICRO #### [facility] [address] [address] Patria Mis Color (U) YELLOW Normal YELLOW Comment on above: Performed By: #### P REGJULIA Lnag UMWARRENRO #### [facility] [address] [place] [address] Patriakarol Abebe ERUANAYD A micrscopic examina tion will be performed if indicated. Normal [facility] Comment on above: Performed By: #### P REGJULIA Lang UMICRO #### [facility] [address] [address] Patria Mis Glucose Ql (U) Negative Normal NEGATIVE [facility] Comment on above: Performed By: #### P JULIA MURRAY UMICRO #### [facility] [address] [place] [address] Patria Mis Hemoglobin Ql (U) TRACE-LYSED Abnormal NEGATIVE [facility] Comment on above: Performed By: #### JULIA GARCIA UMICRO #### [facility] [address] [place] [address] Patria Mis Ketones Ql (U) 40 mg/dl Abnormal NEGATIVE [facility] Comment on above: Performed By: #### P JULIA MURRAY UMICRO #### [facility] [address] [place] [address] Patria Mis LEUKOCYTES Negative Normal NEGATIVE Comment on above: Performed By: #### P REGJULIA Lang UMICRO #### [facility] [address] [place] [address] Patria Mis Nitrite Ql (U) Negative Normal NEGATIVE [facility] Comment on above: Performed By: #### P REGUSHOSHANAR UMICRO #### [facility] [address] [place] [address] Patria Mis pH (U) 6.0 [pH] Normal 5-9 Comment on above: Performed By: #### P REGSHOSHANA LangR UMICRO #### [facility] [address] [place] [address] Patria Mis SPEC GRAVITY >=1.030 Abnormal 1.005-<=1.025 [facility] Comment on above: Performed By: #### P REGSHOSHANA LangR, UMICRO #### [facility] [address] [place] [address] Patria Abebe UA PROTEIN Negative Normal NEGATIVE/ TRACE [facility] Comment on above: Performed By: #### P REGU ERUR, UMICRO #### [facility] [address] [place] [address] Patria Abebe UR MICRO IND INDICATED Normal [facility] Comment on above: Performed By: #### P REGU ERUR, UMICRO #### [facility] [address] [place] [address] Patria Abebe Urobilinogen Qn (U) 4 {Johnnie'U}/dL Abnormal 0.2 - 1.0 Comment on above: Performed By: #### P REGSHOSHANA LangR, UMICRO #### [facility] [address] [place] [address] Patria Abebe LIPASEon 01-02-2021 Lipase [Catalytic activity/Vol] 64.0 U/L Normal 23.0-300.0 [facility] Comment on above: Performed By: #### C BC #### [facility] [address] [place] [address] Dr. Evens Bowden URon 01-02-2021 , QUAL Negative Normal NEGATIVE [facility] Comment on above: Performed By: #### P REGSHOSHANA LangR, UMICRO #### [facility] [address] [place] [address] Patria Mis PROF 14(COMP METB)on 021 Albumin [Mass/Vol] 4.2 g/dL Normal 3.5-5.0 [facility] Comment on above: Performed By: #### C BC #### [facility] [address] [place] [address] Dr. Evens Bowden Albumin/Globulin [Mass ratio] 1.1 {ratio} Normal [facility] Comment on above: Performed By: #### C BC #### [facility] [address] [place] [address] Dr. Evens Bowden ALP [Catalytic activity/Vol] 100 U/L Normal 38-126 Comment on above: Performed By: #### C BC #### [facility] [address] [place] [address] Dr. Evens Bowden ALT [Catalytic activity/Vol] 41 U/L Normal 9-52 Comment on above: Performed By: #### C BC #### [facility] [address] [place] [address] Dr. Evens Bowden Anion gap [Moles/Vol] 14.4 mmol/L Normal Comment on above: Performed By: #### C BC #### [facility] [address] [place] [address] Dr. Evens Bowden AST [Catalytic activity/Vol] 30 U/L Normal 14-36 Comment on above: Performed By: #### C BC #### [facility] [address] [place] [address] Dr. Evens Bowden Bilirubin [Mass/Vol] 0.5 mg/dL Normal 0.2-1.3 [facility] Comment on above: Performed By: #### C BC #### [facility] [address] [place] [address] Dr. Evens Bowden Calcium [Mass/Vol] 9.0 mg/dL Normal 8.4-10.2 [facility] Comment on above: Performed By: #### C BC #### [facility] [address] [place] [address] Dr. Evens Bowden Chloride [Moles/Vol] 106 mmol/L Normal 98-107 [facility] Comment on above: Performed By: #### C BC #### [facility] [address] [place] [address] Dr. Evens Bowden CO2 [Moles/Vol] 26.3 mmol/L Normal 22.0-30.0 [facility] Comment on above: Performed By: #### C BC #### [facility] [address] [place] [address] Dr. Evens Bowden Creatinine [Mass/Vol] 0.74 mg/dL Normal 0.52-1.04 Comment on above: Performed By: #### C BC #### [facility] [address] [address] [address] Evens Bowden EGFR-AF UZBEK >60 Normal >=60 [facility] Comment on above: Performed By: #### C BC #### [facility] [address] [address] [address] Evens Bowden EGFR-NON AF UZBEK >60 Normal >=60 Comment on above: Performed By: #### C BC #### [facility] [address] [address] [address] Evens Bowden Globulin (S) [Mass/Vol] 3.7 g/dL Normal Comment on above: Performed By: #### C BC #### [facility] [address] [address] [address] Evens Bowden Glucose [Mass/Vol] 112 mg/dL Critically high 74-106 [facility] Comment on above: Performed By: #### C BC #### [facility] [address] [address] [address] Evens Bowden Potassium [Moles/Vol] 3.7 mmol/L Normal 3.4-5.0 Comment on above: Performed By: #### C BC #### [facility] [address] [address] [address] Evens Bowden Protein [Mass/Vol] 7.9 g/dL Normal 6.1-8.2 [facility] Comment on above: Performed By: #### C BC #### [facility] [address] [address] [address] Evens Bowden Sodium [Moles/Vol] 143 mmol/L Normal 137-145 [facility] Comment on above: Performed By: #### C BC #### [facility] [address] [address] [address] Evens Bowden Urea nitrogen [Mass/Vol] 10.0 mg/dL Normal 7.0-17.0 Comment on above: Performed By: #### C BC #### [facility] [address] [address] [address] Evens Bowden Urea nitrogen/Creatinine [Mass ratio] 13.5 mg/mg Normal [facility] Comment on above: Performed By: #### C BC #### [facility] [address] [address] [address] Evens Bowden URINE MICROSCOPIC ONLYon BACTERIA MODERATE Abnormal NONE SEEN [facility] Comment on above: Performed By: #### P REGU, ERUR, UMICRO #### [facility] [address] [address] Patria Mis Bacteria identified Cx Nom (U) INDICATED Normal Comment on above: Performed By: #### P REGU, ERUR, UMICRO #### [facility] [address] [place] [address] Patria Mis CAST NONE SEEN Normal NONE SEEN Comment on above: Performed By: #### P REGU, ERUR, UMICRO #### [facility] [address] [place] [address] Patria Mis Crystals LM Nom (Urine sed) NONE SEEN Normal NONE SEEN Comment on above: Performed By: #### P REGU, ERUR, UMICRO #### [facility] [address] [place] [address] Patria Mis Epithelial cells LM Ql (Urine sed) FEW Abnormal NONE SEEN /RARE [facility] Comment on above: Performed By: #### P REGU, ERUR, UMICRO #### [facility] [address] [place] [address] Patria Mis MUCOUS TRACE Abnormal NONE SEEN [facility] Comment on above: Performed By: #### P REGU, ERUR, UMICRO #### [facility] [address] [place] [address] Patria Mis RBC 0-2 Normal 0-2 [facility] Comment on above: Performed By: #### P REGU, ERUR, UMICRO #### [facility] [address] [place], [place] [address] Patria Abebe WBC 0-2 Abnormal NONE SEEN [facility] Comment on above: Performed By: #### P JULIA MURRAY UMICRO #### [facility] [address] [place], [place] [address] Patria Abebe MRI KNEE RT WO CONon [...] ALISON TONEY Date: 2020-12-08 16:25 Normal [facility] CBC and Differentialon 03-10 Abs Baso 0.03 k/uL Normal <0.11 [facility] Abs Real 0.81 k/uL Normal <0.87 [facility] Abs Neut 2.94 k/uL Normal 1.45-7.50 [facility] Absolute nRBC <0.01 Normal <0.01 [facility] Basophils/100 WBC Auto (Bld) 0.5 % Normal [facility] DTYPE Auto Diff Normal [facility] Eosinophils Auto #/vol (Bld) 0.27 10*3/uL Normal <0.46 [facility] Eosinophils/100 WBC Auto (Bld) 4.6 % Normal [facility] Erythrocyte distribution width Auto Ratio (RBC) 12.7 % Normal 11.5-15.0 [facility] Hematocrit Auto Volume Fraction (Bld) 36.0 % Normal 36.0-46.0 [facility] Hemoglobin mass conc (Bld) 12.1 g/dL Normal 11.5-15.5 [facility] Lymphocytes Auto #/vol (Bld) 1.88 10*3/uL Normal 1.00-4.00 [facility] Lymphocytes/100 WBC Auto (Bld) 31.7 % Normal [facility] MCH Auto Entitic mass (RBC) 30.6 pG Normal 26.0-34.0 [facility] MCHC Auto mass conc (RBC) 33.6 g/dL Normal 30.5-36.0 [facility] MCV Auto Entitic volume (RBC) 91.1 fL Normal 80.0-100.0 [facility] Monocytes/100 WBC Auto (Bld) 13.7 % Normal [facility] Neutrophils/100 WBC Auto (Bld) 49.5 % Normal [facility] NRBCs 0.0 /100 WBC Normal 0 [facility] Platelet mean volume Auto Entitic volume (Bld) 9.4 fL Normal 9.0-12.7 [facility] Platelets Auto #/vol (Bld) 257 10*3/uL Normal 150-400 [facility] RBC Auto #/vol (Bld) 3.95 10*6/uL Normal 3.90-5.20 [facility] WBC Auto #/vol (Bld) 5.93 10*3/uL Normal 3.70-11.00 [facility] Comp Metabolic Panelon 03-10 Albumin mass conc 3.6 g/dL Low 3.9-4.9 [facility] ALP enzyme act/vol 46 U/L Normal 34-123 [facility] ALT enzyme act/vol 18 U/L Normal 7-38 [facility] Anion gap 3 molar conc 10 mmol/L Normal 9-18 [facility] AST enzyme act/vol Unable to assay. Spe cimen significantly hemolyzed. Normal 13-35 [facility] Bilirubin mass conc 0.2 mg/dL Normal 0.2-1.3 [facility] Calcium mass conc 8.1 mg/dL Low 8.6-10.0 [facility] Chloride molar conc 103 mmol/L Normal 97-105 [facility] CO2 molar conc 27 mmol/L Normal 22-30 [facility] Creatinine mass conc 0.68 mg/dL Normal 0.58-0.96 [facility] eGFR- Amer. >60 Normal [facility] GFR/1.73 sq M predicted among non-blacks MDRD vol rate/area (S/P/Bld) mL/min/{1.73_m2} Normal [facility] Comment on above: Result Comment: eGFR [...] Glucose mass conc 105 mg/dL High 74-99 [facility] Comment on above: Result Comment: The [employer] (ADA) provides guidance for cutoff [...] Standards of Medical Care in Diabetes 2016, [employer] Diabetes Association. Diabetes Care. 2016.39(Suppl 1). Potassium molar conc 4.1 mmol/L Normal 3.7-5.1 [facility] Protein mass conc 6.1 g/dL Low 6.3-8.0 [facility] Sodium molar conc 140 mmol/L Normal 136-144 [facility] Urea nitrogen mass conc 8 mg/dL Normal 7-21 [facility] ED NOTEon 03-10-2018 ED NOTE HNO ID: [id number] thor: Iliana (Rn) Dawn Padillaice: (none)Author Type: Registered NurseType: ED NotesFiled: 03/10/2018 3:32 AMNote Text: Discharge instructions per provider, the patient verbalizesunderstanding. No additional questions or concerns at this time. Patient Vital signs stable, no acute distress noted. Patient ambulatory out ofED. [facility] ED NOTE HNO ID: [id number] Author: Gayla (Rn) DUSTIN Hurtado Service: (none) Author Type: Registered Nurse Type: ED Notes Filed: 03/10/2018 2:46 AM Note Text: Clean catch urine specimen obtained and sent. [facility] ED NOTE HNO ID: [id number] Author: Gayla CastRn) DUSTIN Hurtado Service: (none) Author Type: Registered Nurse Type: ED Notes Filed: 03/10/2018 12:36 AM Note Text: Patient transported [facility] with Tech. [facility] ED NOTE HNO ID: [id number] thor: Felipe (Medic) Gina AlarconService: (none)Author Type: Foot Orthopedist and TechnicianType: ED NotesFiled: 03/09/2018 11:50 PMNote [...] NOTEon 03-10-2018 Protein mass conc HNO ID: [id number] thor: Francis Eagle: (none)Author Type: PhysicianType: ED Provider NotesFiled: 03/10/2018 6:42 AMNote Text:ED Provider NotePatient Name: Joesph ManciaJeremyRN: [id number] DATE: 03/09/18HistoryPatient presents with:Chest PainPhysical 27-year-old female [...] 10 0321Chest wall painMDM / Disposition / [id number] female comes into the emergency department complaining [...] Normal sinus rhythmRate: 80Axis: Normal axisIntervals: Normal NJ intervalQRS Complex: NormalST Segment: Normal ST-T segmentsQT [...] Powellate: 03/10/2018Time: 6:40 AMAaron Shira03/10/18 0642 Normal [facility] EKGon 03-10-2018 Protein mass conc NAME : MARK CISSE ID : [id number] : 1990 Gender : FemaleRace : CaucasianORD : Procedure Date : Mar 09 2018 23:52:59Edit Date : Mar 10 2018 05:16:28 Diagnosis:Normal sinus rhythmNormal ECGNo previous ECGs availableConfirmed by DO SILVA AARON ([id number]), technical writer and editor DEIRDRE ELIZONDO ([id number]) on 03/10/2018 5:16:22 AM Ventricular Rate : 80 BPMAtrial Rate : 80 BPMP-R Interval : 166 msQRS Duration : 92 msQ-T Interval : 394 msQTC Calculation(Bezet) : 454 msP [place] : 25 degreesR [place] : 19 degreesT [place] : 29 degrees Test Reason : Location : 302 : ED ED Overread By : DO SILVA AARONEdited By : REFUGIO ELIZONDOeferred By : ,Acquired by : , Normal [facility] High Sens Troponin Ton 03-10 High Sensitivity RONAK <6 Normal <12 [facility] Comment on above: Result Comment: When [...] MACE. High Sensitivity RONAK <6 Normal <12 [facility] Comment on above: Result Comment: When [...] Lipase enzyme act/vol 26 U/L Normal 16-61 [facility] PROGRESSon 03-10-2018 Protein mass conc HNO ID: [id number] thor: Mehreen Alves RtService: (none)Author Type: (none)Type: Progress NotesFiled: 03/10/2018 12:51 AMNote Text: Radiology Service Progress NotePATIENT NAME: Joesph NievesRN: [id number] OF SERVICE: March 10, 2018TIME: 12:50 AMPATIENT IDENTITY VERIFICATION COMPLETED USING TWO (2) METHODS: Patientconfirmed name verbally and ID band matches..PATIENT GENDER DATA: Female. status: : NoBreastfeeding status: NO.PATIENT RELEVANT IMPLANT DATA REVIEWED: YesRADIOLOGY DEPARTMENT: General X-ray: Exam(s) Completed: Chest X-RayPERIPHERAL IV DATA: Not applicableSIGNED BY: Mehreen Alves RtOctober 2017 12:50 AM Normal [facility] XR CHEST 2V FRONTAL/LATon XR CHEST [...] displaced acute fractures are detected.IMPRESSION:No acute radiographic abnormality.Pants Presser ist: PSCB Transcribe Date/Time: Mar 10 2018 1:00ADictated by : VIK BURDICK MDThis examination was interpreted and the report reviewed and electronically signed by: VIK BURDICK MD on Mar 10 2018 1:01AM [id number] Normal [facility] Vital Signs Date Time Vital Sign Value Performing Clinician Ranjit mtz 10-19-2023 08:47-0400 Body height 162.6 cm Will Dupree [employer] Work Phone: [facility] 10-19-2023 08:47-0400 Body mass index (BMI) [Ratio] 34.33 kg/m2 Will Delvis [employer] Work Phone: [facility] 10-19-2023 08:47-0400 Body weight 90.72 kg Will [employer] Work Phone: [facility] 05-31-2023 15:25-0500 Body height 160 cm Jarod Weeks MD Work Phone: [facility] 05-31-2023 15:25-0500 Body mass index (BMI) [Ratio] 37.74 kg/m2 Jarod Weeks MD Work Phone: [facility] 05-31-2023 15:25-0500 Body weight 96.62 kg Jarod Weeks MD [facility] 05-31-2023 15:25-0500 Diastolic blood pressure 78 mm[Hg] Jarod Weeks MD Work Phone: [facility] 05-31-2023 15:25-0500 Respiratory rate 18 /min Jarod Weeks MD Work Phone: [facility] 05-31-2023 15:25-0500 Systolic blood pressure 124 mm[Hg] Jarod Weeks MD Work Phone: [facility] Encounters Encounter Date Encounter Type Care Provider Facility Start: 01-14-2024 End: 01-14-2024 ambulatory [facility] Start: 12-26-2023 End: 12-26-2023 ambulatory Jefferson [place] MD Facility:[facility] Start: 11-03-2023 End: 11-03-2023 ambulatory OZIELCOURTNEYKELLY CHAVEZ Not Available Start: 10-19-2023 End: 10-19-2023 ambulatory WILL Asif DUPREE Facility:[facility] Start: 10-19-2023 End: 10-19-2023 ambulatory Will Dupree DO Work Phone: [facility] Comment on above: Hypermobility of lillie nt (Primary Dx) Start: 10-19-2023 End: 10-19-2023 Telemedicine consultation with patient Will Dupree DO Work Phone: [facility] Start: 09-28-2023 End: 09-28-2023 ambulatory [facility] Start: 09-26-2023 End: 09-26-2023 [facility] Start: 09-23-2023 End: 09-23-2023 ambulatory [facility] Start: 09-21-2023 End: 09-21-2023 ambulatory [facility] Start: 09-19-2023 End: 09-19-2023 ambulatory [facility] Start: 09-10-2023 End: 09-10-2023 ambulatory [facility] Start: 09-08-2023 End: 09-08-[address] [facility] Start: 05-31-2023 End: 01-02-2024 ambulatory JAROD WEEKS [facility] Start: 05-31-2023 End: 05-31-2023 Office outpatient visit 25 minutes Jarod Weeks MD Work Phone: [facility] Comment on above: Greater trochanteric [...] 03-10-2018 End: 03-10-2018 Emergency department patient visit [place] Plan of Treatment Date Care Activity Detail Author Start: 11-24-2031 DTaP,Tdap and Td Vaccines (2 - Tdap) DTaP,Tdap and Td Vaccines (2 - Tdap) [facility] Start: 11-24-2031 Urine microalbumin profile DTaP,Tdap,Td Vaccine (2 - Tdap) [facility] Start: 05-31-2024 Adult BMI Screening Adult BMI Screening [facility] Start: 02-17-2024 Tobacco Screening Tobacco Screening [facility] Start: 01-29-2024 Influenza vaccination Influenza Vaccine (Season Ended) [facility] Start: 09-08-2023 End: 09-08-2023 Patient encounter procedure 09/08/2023 11:30 AM EDT Office Visit [facility] [address] [place] [address] Jarod Weeks MD [address] [address] [facility] Start: 05-30-2023 Behavioral Health Screening Behavioral Health Screening [facility] Start: 01-28-2023 COVID-19 Vaccine ( season) COVID-19 Vaccine () [facility] Start: 01-28-2023 Influenza vaccination Influenza Vaccine [facility] Start: 2022 Screening for malignant neoplasm of cervix HPV Testing [facility] Start: 2013 Screening for malignant neoplasm of cervix [facility] Start: 2011 Hepatitis B Vaccine (1 of 3 - 19+ 3-dose series) Hepatitis B Vaccine (1 of 3 - 19+ 3-dose series) [facility] Start: 2010 Adult BMI Follow Up Plan Adult BMI Follow Up Plan [facility] Start: 2010 Hepatitis C screening Hepatitis C Screening [facility] Start: 2010 HIV screening HIV Screening [facility] Start: 2004 Depression Screening Depression Screening [facility] Payers Date Payer Category Payer Unknown 2022 Unknown [id number] 2022 Private Health Insurance [id number] 2022 Private Health Insurance [id number] 1992 Unknown [id number] 2.16.84 [id number] 1992 Unknown [id number] 2.16.84 0.1.047186.3.579.2.593 1992 Unknown [id number] 2.16.84 0.1.608868.3.579.2.593 1992 Unknown [id number] 2.16.84 0.1.721873.3.579.2.593 1992 Unknown [id number] 2.16.84 0.1.221617.3.579.2.593 1992 Unknown [id number] 2.16.84 0.1.744044.3.579.2.593 1992 Unknown [id number] 2.16.84 0.1.576498.3.579.2.593 1992 Unknown [id number] 2.16.84 0.1.528675.3.579.2.593 1992 Unknown [id number] 2.16.84 0.1.801579.3.579.2.593 1992 Unknown [id number] 2.16.84 0.1.250473.3.579.2.1286 1992 Unknown [id number] 2.16.84 0.1.043883.3.579.2.1259 1992 Unknown [id number] 2.16. 840.1.096901.3.579.2.196 1992 Unknown [id number] 2.16.8 40.1.364462.3.579.2.6 1992 Unknown [id number] 2.16.8 40.1.414244.3.579.2.1286 1992 Unknown [id number] 2.16.8 40.1.177318.3.579.2.128 1992 Unknown [id number] 2.16.8 40.1.914619.3.579.2.128 1992 Unknown [id number] 2.16.8 40.1.330608.3.579.2.1285 1992 Unknown [id number] 2.16.8 40.1.171043.3.579.2.1286 1992 Unknown [id number] 2.16.8 40.1.966547.3.579.2.128 1992 Unknown [id number] 2.16.8 40.1.355406.3.579.2.1286 1992 Unknown [id number] 2.16.8 40.1.651023.3.579.2.1286 1959 Unknown [id number] Social History Date Type Detail Facility Start: 10-11-2022 End: 10-19-2023 Tobacco smoking status NHIS Never smoked tobacco [facility] Start: 10-11-2022 End: 10-19-2023 Tobacco use and exposure Smokeless tobacco non-user [facility] Start: 02-16-2023 Alcohol intake Current drinke r of alcohol (finding) [facility] Start: 02-16-2023 End: 10-19-2023 Alcohol intake [facility] Start: 02-16-2023 End: 10-19-2023 Tobacco use panel [facility] How hard is it for y ou to pay for the very basics like food, housing, medical care, and heating Somewhat hard [facility] In the past 12 month s, has lack of transportation kept you from medical appointments or from getting medications? No [facility] Start: 1990 Sex Assigned At Female P [facility] Start: 05-12-2023 Gender identity Identifies as female gender (finding) [facility] Start: 05-12-2023 Sexual orientation Choose not to disclose [facility] Start: 10-19-2023 Alcohol intake Ex-drinker (finding) [facility] NEGATED: Highlighted rowStart: NINF History of tobacco use Passive smoker [facility] Medical Equipment Procedure Code Equipment Code Equipment Origin al Text Equipment Identifier Dates Use to inject Vi t B 12 intramuscular [id number] Start: 05-31-2023 Use to inject Vi t B 12 intramuscular [id number] Start: 09-21-2022 End: 05-31-2023 Progress note 10-19-2023 Note Date & Type Note Facility 10-19-2023 Note HNO ID: [id number] Author: WILL DUPREE, DO Service: ? Author Type: Physician Type: Progress Notes Filed: 10/19/2023 11:02 Note Text: Telemedicine Visit - Distance Health Virtual Visit Note Patient seen on [employer] Video Visit platform. Location of patient: [place] PCP: No primary care provider on file. History of Present Illness Joesph Neff is a 33 year old female who presents for a referral request. - Says her PCP was concerned for EDS and needs an internal referral to a ramp boss to be evaluated - Suspect EDS for [...] visit. Either the patient or their legal employment representative has been informed of the risks [...] and complete. Electronically Signed: Will Dupree DO. [facility] Progress note 10-19-2023 Note Date & Type Note Facility 10-19-2023 Note HNO ID: [id number] Author: SHITAL ROY RN Service: ? Author Type: Registered Nurse Type: Progress Notes Filed: 10/19/2023 11:02 Note Text: Items addressed in this encounter: Other VV pre check, name and location verified, aware of tele health visit with A Delvis Torres RN October 19, 2023 8:51 AM 8:51 AM [facility] History of Present illness Narrative 10-19-2023 Will Dupree DO - 10/19/2023 10:27 AM EDTPShital schuler RN - 10/19/2023 8:51 AM EDT Note Date & Type Note Facility 10-19-2023 History of Presen t illness Narrative Telemedicine Visit - Distance Health Virtual Visit Note Patient seen on [employer] Video Visit platform. Location of patient: [place] PCP: No primary care provider on file. History of Present Illness Joesph Neff is a 33 year old female who presents for a referral request. - Says her PCP was concerned for EDS and needs an internal referral to a ramp boss to be evaluated - Suspect EDS for [...] visit. Either the patient or their legal employment representative has been informed of the risks [...] AM 8:51 AM documented in this encounter [facility] History of Present illness Narrative 05-31-2023 Jarod Weeks MD - 05/31/2023 3:30 PM Ashely Weeks MD - 05/31/2023 3:30 PM EST Note Date & Type Note Facility 05-31-2023 History of Present illness Narrative Images from the original note were not included. [address] [address] Date of Service: 05/31/2023 Subjective: Joesph Neff [...] 08/23/2022 AMISHA IFA negative, complements normal, anti COUNTER HELPER 1.7 AI, vitamin-D 11.9 ng/mL normal, urinalysis [...] or corrected. Thank you for your understanding. [facility]. Jarod Weeks MD [address] [place] [address], [address] [place] [address] Office: [phone] Rheumatology Procedure Site: Bilateral trochanteric bursa and [...] during the procedure documented in this encounter [facility] Evaluation note Note Date & Type Note Facility Evaluation note Diagnosis Greater trochanteric bursitis of both hips- Primary Fibromyalgia Unspecified myalgia and myositis Vitamin B 12 deficiency Other B-complex deficiencies Anserine bursitis documented in this encounter [facility] Evaluation note Note Date & Type Note Facility Evaluation note Diagnosis Hypermobility of joint- Primary Other joint derangement, not elsewhere classified, unspecified site documented in this encounter [facility] Instructions Note Date & Type Note Facility Instructions Not on filedocumented in this en counter [facility] Summary Purpose Family History No [...] CONSULT TO MEDICAL GENETICS - GENERAL OFFICE/OUTPATIENT [facility] 60 MINUTES MEDICAL GENETICS COUNSELING EACH 30 MINUTES Will Dupree DO [address] [place] [address] [facility] [address] [place] [address] Referral ID Status Reason Start Date Expiration Date Visits Requested Visits Authorized [id number] Pending Review PCP Requested Referral Auto-Generate d Referral 10/19/2023 10/18/2024 1 1 Additional Source Comments INFORMATION SOURCE (unrecogn ized section and content) DATE CREATED AUTHOR 04/12/2018 [facility] DATE CREATED AUTHOR AUTHOR'S ORGANIZ ATION 11/26/[address] [facility] DATE CREATED AUTHOR AUTHOR'S ORGANIZ ATION 06/03/2023 [facility] DATE CREATED AUTHOR AUTHOR'S ORGANIZ ATION 10/21/2023 [facility] DATE CREATED AUTHOR AUTHOR'S ORGANIZ ATION 11/04/2023 [facility] DATE CREATED AUTHOR AUTHOR'S ORGANIZ ATION 01/10/2024 [facility] DATE CREATED AUTHOR AUTHOR'S ORGANIZ ATION 01/15/2024 [facility] Care Teams (unrecognized sec tion and content) Leadlighter Relationship Specialty Start Date End Date Bia Maciel MD [address] [place] [address] PCP - General Family Medicine 09/21/22 Source Comments (unrecognize d section and content) In the event this informatio n is protected by the Federal Confidentiality of Alcohol and Drug Abuse Patient Records regulations: The Federal rules restrict any use of the information to criminally investigate or prosecute any alcohol or drug abuse patient.[facility] Reason for Visit (unrecogniz ed section and content) Reason Comments Referral Request House Decorator FOR RECORDS PERTAINING TO PATIENTS WHO ARE [...] BE BASED ON THE PRIMARY CLINICAL RECORDS. [facility] [employer] [facility]. provides no warranty or guarantee of the accuracy or completeness of information in this document.
--- NOTE | 2024-01-18 11:30 | P.CN_ITS ---
Consult Note: HPI Data of Consult Patient: known to practice within the last 3 years Requesting Physician: Jaye Sánchez NP Primary Care Provider: Sunny Maciel MD Consult Narrative Reason for consult: f/u Narrative: Joesph Pink a pleasant 33 year old female presents for evaluation and management of chronic low back pain and lumbar radiculopathy. Pain started July of 2023 without particular onset. Patient reporting pain 7/10, increasing to 10/10 varying pain. Pain can be throbbing burning aching shoot stabbing throughout low back and legs. Patient following with neurology, rheumatology, and had a NS consult who recommended L5-S1 ESIs. Patient has failed to benefit from OTC tylenol, cannot take NSAIDs with hx of gastric bypass, on lyrica 50mg daily for FM without improvement, robaxin 750mg HS helps her sleep. KALEB 70%. Patient on tramadol with improvement. Utilizes cane. Could not tolerate PT, attended 1 visit then was referred to NS. Failed bilateral L5/S1 TFESI and bilateral L4-5 L5-S1 MBB #1. Patient continues to follow with rheumatology for further workup, potential EDS and FM. cc:: CC: Jaye Sánchez NP Review of Systems ROS Status of ROS 10 or more systems reviewed and unremark able except as noted in history and below Musculoskeletal Reports: back pain, neck pain and muscle weakness PFSH PFSH Medical History (Updated 01/02/24 @ 15:00 by Jefferson [place] MD) Cholecystectomy planned Carpal tunnel syndrome ?G56.00 - Carpal tunnel syndrome, unspecified upper limb (ICD-10) Surgical History History of tonsillectomy and adenoidectomy ?Z90.89 - Acquired absence of other organs (ICD-10) Status post panniculectomy ?Z98.890 - Other specified postprocedural states (ICD-10) History of tubal ligation ?Z98.51 - Tubal ligation status (ICD-10) History of gastric bypass ?Z98.84 - Bariatric surgery status (ICD-10) Meds Home Medications and Allergies Home Medications ?Medication ?Instructions ?Recorded ?Confirmed ?Type dextroamphetamine-amphetamine 30 30 mg PO DAILY 02/25/23 01/16/24 History mg tablet (Adderall) pregabalin 165 mg tablet, extended 165 mg PO DAILY 02/25/23 01/16/24 History release 24 hr (Lyrica CR) acetaminophen 325 mg capsule 325 mg PO Q6H PRN pain 11/30/23 01/16/24 History (Tylenol) methocarbamol 750 mg tablet 750 mg PO DAILY 11/30/23 01/16/24 History Allergies Allergy/AdvReac Type Severity Reaction Status Date / Time gabapentin Allergy Unknown Unknown Verified 01/16/24 10:35 oxycodone [From Percocet] AdvReac Unknown Unknown Verified 01/16/24 10:35 Exam Constitutional Documenting provider has reviewed patient's vital signs: yes Common normals: no apparent distress, oriented x3, healthy appearing, alert and well nourished General appearance: cooperative HENMT Common normals: normocephalic, hearing grossly normal bilaterally and moist oral mucous membranes Head and scalp: normocephalic Eye Common normals: PERRL Pupil: PERRL Neck & C-Spine Common normals: full ROM General: normal visual inspection Chest Common normals: inspection of chest normal Respiratory Common normals: normal respiratory effort, no retractions and no use of accessory muscles Back & Pelvis Thoracic spine/upper back: normal to inspection, ROM limited and pain with ROM Lumbar spine/lower back: normal to inspection, ROM limited, pain with ROM, straight leg raise positive right and straight leg raise positive left Other: significant diffuse hyperalgesia and myofascial pain weakness to BLE Extremity Common normals: normal to inspection and full ROM Neuro Common normals: oriented x3, CN's II-XII intact bilaterally, moves all extremities, no focal motor deficits, no sensory deficits noted, deep tendon reflexes 2+ bilaterally and gait normal Sensorium/orientation: alert Motor exam: no movement abnormalities noted Psych Common normals: mental status grossly normal, thought process normal, cooperative, affect normal, speech normal and activity/motor behavior normal Speech: normal speech Thought process: normal thought process Results Additional Findings Additional findings: If on a controlled substance or opioids, I have checked an [place]ARRS report on this patient and there are no aberrancies noted in the prescribing history.??If on a controlled substance or opioid a drug screen was completed and reviewed within the last year, and if there has not been a drug screen completed we ordered one today to monitor higher risk, state monitored pain medication use. As part of providing excellent, safe, comprehensive care, the following was completed at our patient's visit: 1. A medication reconciliation and review to ensure accurate knowledge of current/active medications, including asking our patients to inform us about any [id number] medications or herbal remedies/nutritional supplements/alternative remedies. 2. A review to specifically ensure our patients have had annual screening for screening for depression, screening for tobacco use, and screening for unhealthy alcohol use. For concerning screenings had a discussion with the patient, provided patient education, and recommended follow-up with primary care provider when appropriate. If patient noted with a risk of falling, they received education on strength, gait, and balance training to prevent future risk of falling. Assessment and Plan Assessment and Plan (1) Lumbar spondylosis: (2) Lumbar radiculopathy: (3) Lumbar stenosis with neurogenic claudication: (4) Fibromyalgia: (5) Myofascial pain: Plan can refer back to Dr Way for evaluation, likely nonsurgical although patient failed to respond to bilateral L5-S1 TFESI and bilateral L4-5 L5-S1 MBBs continue f/u with rheumatology continue f/u with neurology f/u with us PRN
== END 2024-01-18 11:06 | disposition home or self-care (01) ==
LOC: PM 11:05
PROVIDERS: PCP Family Medicine; Visit Provider Nurse Practitioner
DX: M47.816 Spondylosis without myelopathy or radiculopathy, lumbar region (principal); M54.16 Radiculopathy, lumbar region; M48.062 Spinal stenosis, lumbar region with neurogenic claudication; M79.7 Fibromyalgia
CPT/HCPCS: G0463

== ENCOUNTER 2024-02-21 15:13 | Emergency (ER) | payer OTHER, SELFPAY ==
[2024-02-21 15:19] VITALS: BP 130/86; PULSE 73; TEMP 36.8; O2SAT 99; BMI 37.2
--- OUTSIDE RECORDS SUMMARY | 2024-02-21 15:28 | XMS_ITS | CCD ---
Author Organization [facility] Care Team Providers Care Rehab Specialist Name Role Phone SHIRAFRANCIS GREER Unavailable Unavailable MISC, DR GR Admitting Unavailable [...] Unavailable Bia Maciel MD Primary Care Provider [phone] JAROD WEEKS Attending Unavailable BIA MACIEL Referring Unavailable BIA MACIEL Primary Care Unavailable Unavailable Primary Care Provider UnavailWILL Espinosa Attending Unavailable JAROD WEEKS Attending Unavailable HOY, BIA M Referring Unavailable HOY, BIA M Primary Care Unavailable WEEKSBRUNILDA SCHULTZR James Referring Unavailable HOY, BIA M Primary Care [...] e HOY, BIA M Primary Care Unavailable Gieditis , Jefferson Hairston Attending Unavailable Gievelyne JC, Jefferson Hairston Attending Unavailable Giedmelia JC, Jefferson Hairston Attending Unavailable DEIRDRE CHAVEZ Attending Unavailable HOY, BIA M Referring Unavailable SHANNAN KUMAR Attending Unavailable SHANNAN KUMAR Attending Unavailable Allergies Allergy Classification Reported Allergen(s) Allergy Type Date of Onset Reaction(s) Facility (3 sources) acetaminophen / oxyCODONE; Translations: [OXYCODONE-ACETAM INOPHEN] Drug Allergy 8 [facility] Repository (1 source) Acetaminophen / oxyCODONE Drug Allergy 5 [facility] Repository (3 sources) oxyCODONE; Translations: [OXYCODONE HCL] Drug Allergy 2 Itching, GI Disturbance [facility] Medications Current Medications Medication Drug [...] the morning. 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] Onset: 11-25-2021 Episodic [...] disease (2 sources) Encounter for immunization; Translations: [BODY BUILDER antibody positive] Onset: 11-25-2021 09-21-2022 Episodic Nausea [...] Range Facility CBC AND AUTO DIFFon 01-14-20 24 ABSOLUTE BASOPHIL 0.1 X10E9/L Normal 0.0-0.2 [facility] Comment on above: Performed By: #### C TOD, FEPR, 6-4, 2283-8, 2132-01 #### [facility] ([id number]) [address], [address] [place] [address] ABSOLUTE NEUTROPHIL 6.6 X10E9/L Normal 1.5-6.6 [facility] Comment on above: Performed By: #### C BCA, FEPR, 6-4, 2283-8, 2132-01 #### [facility] ([id number]) [address], [address] [place] [address] Basophils/100 WBC (Bld) 0.6 % Normal [facility] Comment on above: Performed By: #### C BCA, FEPR, 2275-08, 2283-12, 2132-01 #### [facility] ([id number]) [address], [address] [place] [address] Eosinophils (Bld) [#/Vol] 0.2 10*3/uL Normal 0.0-0.4 [facility] Comment on above: Performed By: #### C BCA, FEPR, 2275-08, 2283-12, 2132-01 #### [facility] ([id number]) [address], [address] [place] [address] Eosinophils/100 WBC (Bld) 1.7 % Normal [facility] Comment on above: Performed By: #### C BCA, FEPR, 2275-08, 2283-12, 2132-01 #### [facility] ([id number]) [address], [address] [place] [address] Erythrocyte distribution width (RBC) [Ratio] 13.7 % Normal 11.5-15.0 [facility] Comment on above: Performed By: #### C BCA, FEPR, 2275-08, 2283-12, 2132-01 #### [facility] ([id number]) [address], [address] [place] [address] Hematocrit (Bld) [Volume fraction] 40.3 % Normal 35-47 [facility] Comment on above: Performed By: #### C BCA, FEPR, 2275-08, 2283-12, 2132-01 #### [facility] ([id number]) [address], [address] [place] [address] Hemoglobin (Bld) [Mass/Vol] 13.9 g/dL Normal 11.7-15.5 [facility] Comment on above: Performed By: #### C BCA, FEPR, 2275-08, 2283-12, 2132-01 #### [facility] ([id number]) [address], [address] [place] [address] Lymphocytes (Bld) [#/Vol] 2.1 10*3/uL Normal 1.0-3.5 [facility] Comment on above: Performed By: #### C BCA, FEPR, 2275-08, 2283-12, 2132-01 #### [facility] ([id number]) [address] [place] [address] Lymphocytes/100 WBC (Bld) 21.2 % Normal [facility] Comment on above: Performed By: #### C BCA, FEPR, 2275-08, 2283-12, 2132-01 #### [facility] ([id number]) [address], [address] [place] [address] MCH (RBC) [Entitic mass] 32.6 pg Normal 27-34 [facility] Comment on above: Performed By: #### C BCA, FEPR, 2275-08, 2283-12, 2132-01 #### [facility] ([id number]) [address], [address] [place] [address] MCHC (RBC) [Mass/Vol] 34.4 g/dL Normal 32-36 [facility] Comment on above: Performed By: #### C BCA, FEPR, 2275-08, 2283-12, 2132-01 #### [facility] ([id number]) [address] [place] [address] MCV (RBC) [Entitic vol] 95 fL Normal 80-100 [facility] Comment on above: Performed By: #### C BCA, FEPR, 2275-08, 2283-12, 2132-01 #### [facility] ([id number]) [address], [address] [place] [address] Monocytes (Bld) [#/Vol] 0.9 10*3/uL Normal 0-0.9 [facility] Comment on above: Performed By: #### C BCA, FEPR, 2275-4, 2283-12, 2132-01 #### [facility] ([id number]) [address], [address] [place] [address] Monocytes/100 WBC (Bld) 9.1 % Normal [facility] Comment on above: Performed By: #### C BCA, FEPR, 2275-4, 8, 2132-01 #### [facility] ([id number]) [address], [address] [place] [address] Neutrophils/100 WBC (Bld) 67.4 % Normal [facility] Comment on above: Performed By: #### C BCA, FEPR, 2275-08, 2283-12, 2132-01 #### [facility] ([id number]) [address], [address] [place] [address] Platelet mean volume (Bld) [Entitic vol] 7.2 fL Normal 7-12 [facility] Comment on above: Performed By: #### C BCA, FEPR, 2275-, 2283-12, 2132-01 #### [facility] ([id number]) [address], [address] [place] [address] Platelets (Bld) [#/Vol] 372 10*3/uL Normal 150-450 [facility] Comment on above: Performed By: #### C BCA, FEPR, 2275-4, 2283-12, 2132-01 #### [facility] ([id number]) [address], [address] [place] [address] RBC COUNT 4.26 X10E12/L Normal 3.80-5.20 [facility] Comment on above: Performed By: #### C BCA, FEPR, 2275-4, 2283-12, 2132-01 #### [facility] ([id number]) [address], [address] [place] [address] WBC (Bld) [#/Vol] 9.7 10*3/uL Normal 4.0-11.0 [facility] Comment on above: Performed By: #### C BCA, FEPR, 6-4, 2283-8, 2132-01 #### [facility] ([id number]) [address], [address] [place] [address] FERRITINon 01-14-2024 Ferritin [Mass/Vol] 58 ng/mL Normal 11-307 [facility] Comment on above: Performed By: #### C BCA, FEPR, 6-4, 2283-8, 2132-01 #### [facility] ([id number]) [address], [address] [place] [address] Folate [Mass/Vol]on 01-14-20 24 FOLIC ACID 7.9 ng/mL Normal >5.8 [facility] Comment on above: Result Comment: NEW REFERENCE RANGE Performed By: #### C BCA, FEPR, 6-4, 2283-8, 2132-01 #### [facility] ([id number]) [address], [address] [place] [address] IRON PROFILEon 01-14-2024 Iron [Mass/Vol] 147 ug/dL Normal 50-170 [facility] Comment on above: Performed By: #### C BCA, FEPR, 6-4, 2283-8, 2132-01 #### [facility] ([id number]) [address], [address] [place] [address] IRON BINDING 370 ug/dL Normal 250-425 [facility] Comment on above: Performed By: #### C BCA, FEPR, 6-4, 2284-8, 2132-01 #### [facility] ([id number]) [address], [address] [place] [address] IRON SATURATION 40 % SATURATION Normal 15-50 [facility] Comment on above: Performed By: #### C BCA, FEPR, 2275-08, 2283-12, 2132-01 #### [facility] ([id number]) [address], [address] [place] [address] VITAMIN B12on 01-14-2024 Cobalamin (Vitamin B12) [Mass/Vol] 167 pg/mL Low 180-914 [facility] Comment on above: Performed By: #### C BCA, FEPR, 2275-08, 2132-01, 2283-12 #### [facility] ([id number]) [address], [address] [place] [address] XR HIPS BILAT W OR WO PELVIS [...] Hou MD on 09/13/2023 9:36 PM Normal [facility] CBC AND AUTO DIFFon 09-10-19 24 ABSOLUTE BASOPHIL 0.1 X10E9/L Normal 0.0-0.2 [facility] Comment on above: Performed By: #### C BCA, FEPR, 4, 2132-01, 2283-12 #### [facility] ([id number]) [address], [address] [place] [address] ABSOLUTE NEUTROPHIL 3.8 X10E9/L Normal 1.5-6.6 [facility] Comment on above: Performed By: #### C BCA, FEPR, 2275-08, 2132-01, 2283-12 #### [facility] ([id number]) [address], [address] [place] [address] Basophils/100 WBC (Bld) 0.9 % Normal [facility] Comment on above: Performed By: #### C BCA, FEPR, 2275-08, 2132-01, 2283-12 #### [facility] ([id number]) [address], [address] [place] [address] Eosinophils (Bld) [#/Vol] 0.1 10*3/uL Normal 0.0-0.4 [facility] Comment on above: Performed By: #### C BCA, FEPR, 2275-08, 2132-01, 2283-12 #### [facility] ([id number]) [address], [address] [place] [address] Eosinophils/100 WBC (Bld) 1.5 % Normal [facility] Comment on above: Performed By: #### C BCA, FEPR, 2275-08, 2132-01, 2283-12 #### [facility] ([id number]) [address], [address] [place] [address] Erythrocyte distribution width (RBC) [Ratio] 13.0 % Normal 11.5-15.0 [facility] Comment on above: Performed By: #### C BCA, FEPR, 2275-08, 2132-01, 2283-12 #### [facility] ([id number]) [address], [address] [place] [address] Hematocrit (Bld) [Volume fraction] 38.3 % Normal 35-47 [facility] Comment on above: Performed By: #### C BCA, FEPR, 2275-08, 2132-01, 2283-12 #### [facility] ([id number]) [address], [address] [place] [address] Hemoglobin (Bld) [Mass/Vol] 13.0 g/dL Normal 11.7-15.5 [facility] Comment on above: Performed By: #### C BCA, FEPR, 2275-08, 2132-01, 2283-12 #### [facility] ([id number]) [address], [address] [place] [address] Lymphocytes (Bld) [#/Vol] 1.5 10*3/uL Normal 1.0-3.5 [facility] Comment on above: Performed By: #### C BCA, FEPR, 2275-08, 2132-01, 2283-12 #### [facility] ([id number]) [address] [place] [address] Lymphocytes/100 WBC (Bld) 25.0 % Normal [facility] Comment on above: Performed By: #### C BCA, FEPR, 2275-08, 2132-01, 2283-12 #### [facility] ([id number]) [address], [address] [place] [address] MCH (RBC) [Entitic mass] 31.4 pg Normal 27-34 [facility] Comment on above: Performed By: #### C BCA, FEPR, 2275-08, 2132-01, 2283-12 #### [facility] ([id number]) [address], [address] [place] [address] MCHC (RBC) [Mass/Vol] 34.1 g/dL Normal 32-36 [facility] Comment on above: Performed By: #### C BCA, FEPR, 2275-08, 2132-01, 2283-12 #### [facility] ([id number]) [address], [address] [place] [address] MCV (RBC) [Entitic vol] 92 fL Normal 80-100 [facility] Comment on above: Performed By: #### C BCA, FEPR, 2275-08, 2132-01, 2283-12 #### [facility] ([id number]) [address], [address] [place] [address] Monocytes (Bld) [#/Vol] 0.5 10*3/uL Normal 0-0.9 [facility] Comment on above: Performed By: #### C BCA, FEPR, 2275-08, 2132-01, 2283-12 #### [facility] ([id number]) [address], [address] [place] [address] Monocytes/100 WBC (Bld) 8.6 % Normal [facility] Comment on above: Performed By: #### C BCA, FEPR, 2275-08, 2132-01, 2283-12 #### [facility] ([id number]) [address], [address] [place] [address] Neutrophils/100 WBC (Bld) 64.0 % Normal [facility] Comment on above: Performed By: #### Raul BCA, FEPR, 2275-08, 2132-01, 2283-12 #### [facility] ([id number]) [address], [address] [place] [address] Platelet mean volume (Bld) [Entitic vol] 7.6 fL Normal 7-12 [facility] Comment on above: Performed By: #### C BCA, FEPR, 2275-08, 2132-01, 2283-12 #### [facility] ([id number]) [address], [address] [place] [address] Platelets (Bld) [#/Vol] 408 10*3/uL Normal 150-450 [facility] Comment on above: Performed By: #### Raul BCA, FEPR, 2275-08, 2132-01, 2284-8 #### [facility] ([id number]) [address], [address] [place] [address] RBC COUNT 4.16 X10E12/L Normal 3.80-5.20 [facility] Comment on above: Performed By: #### C BCA, FEPR, 2275-08, 2132-01, 2283-12 #### [facility] ([id number]) [address], [address] [place] [address] WBC (Bld) [#/Vol] 6.0 10*3/uL Normal 4.0-11.0 [facility] Comment on above: Performed By: #### C BCA, FEPR, 2275-08, 2132-01, 2283-12 #### [facility] ([id number]) [address] [place] [address] FERRITINon 09-10-2023 Ferritin [Mass/Vol] 10 ng/mL Low 11-307 [facility] Comment on above: Performed By: #### C BCA, FEPR, 2275-08, 2132-01, 2283-12 #### [facility] ([id number]) [address] [place] [address] Folate [Mass/Vol]on 09-10-19 24 FOLIC ACID 10.9 ng/mL Normal >5.8 [facility] Comment on above: Result Comment: NEW REFERENCE RANGE Performed By: #### C BCA, FEPR, 2275-08, 2132-01, 2283-12 #### [facility] ([id number]) [address] [address] [place] [address] IRON PROFILEon 09-10-2023 Iron [Mass/Vol] 92 ug/dL Normal 50-170 [facility] Comment on above: Performed By: #### C BCA, FEPR, 2275-08, 2132-01, 2283-12 #### [facility] ([id number]) [address] [address] [place] [address] IRON BINDING 421 ug/dL Normal 250-425 [facility] Comment on above: Performed By: #### C BCA, FEPR, 6-4, 2131-9, 2283-8 #### [facility] ([id number]) [address], [address] [place] [address] IRON SATURATION 22 % SATURATION Normal 15-50 [facility] Comment on above: Performed By: #### C BCA, FEPR, 6-4, 2131-9, 2283-8 #### [facility] ([id number]) [address], [address] [place] [address] VITAMIN B12on 09-10-2023 Cobalamin (Vitamin B12) [Mass/Vol] 195 pg/mL Normal 180-914 [facility] Comment on above: Performed By: #### C BCA, FEPR, 6-4, 2132-01, 2283-8 #### [facility] ([id number]) [address], [address] [place] [address] [facility] ANITBODY TESTon 022 [facility] Antibodies <1.0 Normal [facility] Comment on above: Result Comment: Refe [...] be useful to follow treatment. References: 1. Berrih-Aknin S et al. J Autoimmunity 2014;52:90-100. 2. Luzmaria MG et al. PNAS 2013;110(76);73992-29830. 3. Joo Escudero et al. Neurology 2006;67:505-507. This test was developed and its performance characteristics determined by [facility]. It has not been cleared or approved by the Food and Drug Administration. Performed By: #### M ERIK #### [facility] [address] [place] [address] Dr. Evens Bowden ACETYLCHOLINE RECEPTOR AB ND OFILEon 11-10-2021 AChR Binding Abs, Serum <0.03 Normal 0.00-0.24 [facility] Comment on above: Result Comment: Nega tive: 0.00 - 0.24 Borderline: 0.25 - 0.40 Positive: >0.40 Performed By: #### JULIA GARCIA UMICRO #### [facility] [address] [place] [address] Patria Abebe AChR Blocking Abs, Serum 10 % Normal 0-25 [facility] Comment on above: Result Comment: Nega tive: 0 - 25 Borderline: 26 - 30 Positive: >30 Performed By: #### JULIA GARCIA UMICRO #### [facility] [address] [place] [address] Patria Mis AChR Modulating Ab CANRGT Normal [facility] Comment on above: Result Comment: Test not performed. Unable to perform test due to current unavailability of reagents or discontinuation of test. Negative: <21 Equivocal: 21 - 25 Positive: >25 Effective March 25, 2021, test 502187 AChR Modulating Abs, Serum was made non-orderable due to an ongoing reagent issue. Specimens are stored frozen and can be referenced to [facility] to provide an AChR Modulating Ab result. Please contact [facility] Customer Service to add on [phone] Acetylcholine Receptor Modulating Antibody, if warranted. Performed By: #### JULIA GARCIA UMICRO #### [facility] [address] [place] [address] Patria Abebe LYME DISEASE AB EIA W REFLEX on 11-04-2021 Lyme Total Antibody,EIA Negative Normal Negative [facility] Comment on above: Result Comment: Lyme Antibody Negative No laboratory evidence of infection with B. burgdorferi (Lyme disease). Negative results may occur in patients recently infected (greater than or equal to 14 days) with B. burgdorferi. If recent infection is suspected, repeat testing on a new sample collected in 7 to 14 days is recommended. Performed By: #### JULIA GARCIA UMICRO #### [facility] [address] [place] [address] Patria Abebe AMISHA EIA W/REFLEX 5 BIOMARKER Son 11-03-2021 AMISHA Direct Positive Abnormal Negative [facility] Comment on above: Performed By: #### JULIA GARCIA UMICRO #### [facility] [address] [place] [address] Patria Abebe Anti-DNA (DS) Ab Qn <1 Normal 0-9 [facility] Comment on above: Result Comment: Nega tive <5 Equivocal 5 - 9 Positive >9 Performed By: #### JULIA GARCIA UMICRO #### [facility] [address] [address] Patria Abebe BODY BUILDER Antibodies 2.4 AI Critically high 0.0-0.9 [facility] Comment on above: Performed By: #### JULIA GARCIA UMICRO #### [facility] [address] [place] [address] Patria Abebe SEE BELOW: Comment Normal [facility] Comment on above: Result Comment: Auto [...] Sm (anti-Hunter) SLE 15 - 30% --------- BODY BUILDER Mixed Connective Tissue Disease 95% (U1 nRNP, SLE 30 - 50% anti-ribonucleoprotein) Polymyositis and/or Dermatomyositis 20% --------- Scl-70 (antiDNA Scleroderma (diffuse) 20 - 35% topoisomerase) Crest 13% --------- Kristie-1 Polymyositis and/or Dermatomyositis 20 - 40% --------- Centromere B Scleroderma - Crest variant 80% Performed By: #### JULIA GARCIA UMICRO #### [facility] [address] [place] [address] Patria Mis Sjogren's Anti-SS-A <0.2 Normal 0.0-0.9 [facility] Comment on above: Performed By: #### JULIA GARCIA UMICRO #### [facility] [address] [place] [address] Patria Mis Sjogren's Anti-SS-B <0.2 Normal 0.0-0.9 [facility] Comment on above: Performed By: #### JULIA GARCIA UMICRO #### [facility] [address] [place] [address] Mis Hunter Antibodies <0.2 Normal 0.0-0.9 [facility] Comment on above: Performed By: #### JULIA GARCIA UMICRO #### [facility] [address] [place] [address] Patria Abebe CMV AB, IGGon 11-03-2021 Cytomegalovirus (CMV) Ab, IgG 5.70 U/mL Critically high 0.00-0.59 [facility] Comment on above: Result Comment: Nega tive <0.60 Equivocal 0.60 - 0.69 Positive >0.69 Performed By: #### JULIA GARCIA UMICRO #### [facility] [address] [place] [address] Patria Escobaren SHIRA-MOTA VIRUS (EBV) AB PROFILEon 11-03-2021 EBV Ab VCA, IgG 122.0 U/mL Critically high 0.0-17.9 [facility] Comment on above: Result Comment: Nega tive <18.0 Equivocal 18.0 - 21.9 Positive >21.9 Performed By: #### M MASOODB #### [facility] [address] [address] [address] Evens Bowden EBV Ab VCA, IgM <36.0 Normal 0.0-35.9 [facility] Comment on above: Result Comment: Nega tive <36.0 Equivocal 36.0 - 43.9 Positive >43.9 Performed By: #### M MASOODB #### [facility] [address] [address] [address] Evens Bowden EBV Nuclear Antigen Ab, IgG 244.0 U/mL Critically high 0.0-17.9 [facility] Comment on above: Result Comment: Nega tive <18.0 Equivocal 18.0 - 21.9 Positive >21.9 Performed By: #### Hugo CORREIAB #### [facility] [address] [address] [address] Evens Bowden Interpretation: Comment Normal [facility] Comment on above: Result Comment: EBV [...] develop antibodies to EBNA. Performed By: #### M MASOODB #### [facility] [address] [address] [address] Evens Bowden RHEUMATOID FACTORon 11-04-19 RA Latex Turbid. <10.0 Normal <14.0 [facility] Comment on above: Performed By: #### Hugo CORREIAB #### [facility] [address] [address] [address] Evens Bowden CPKon 06-06-2022 CK [Catalytic activity/Vol] 150 U/L Normal 26-192 [facility] Comment on above: Performed By: #### C K #### [facility] [address] [place] [address] Dr. Evens Bowden MRI BRAIN WO W [...] SANDRA VERDIN Date: 2021-10-01 13:31 Normal [facility] MRI CSPINE WO W CONon 2021 [...] SANDRA VERDIN Date: 2021-10-01 13:52 Normal [facility] INSULINon 09-11-2021 Insulin 5.2 uIU/mL Normal 2.6-24.9 [facility] Comment on above: Performed By: #### P REGU, SHOSHANAR, UMWARRENRO #### [facility] [address] [place] [address] Patria Abebe CBC AUTO DIFFon 09-10-2021 BASO # 0.0 103/ul Normal 0.0-0.1 [facility] Comment on above: Performed By: #### C BC #### [facility] [address] [place] [address] Dr. Evens Bowden Basophils/100 WBC (Bld) 0.7 % Normal 0.2-2.0 [facility] Comment on above: Performed By: #### C BC #### [facility] [address] [place] [address] Dr. Evens Bowden EO # 0.1 103/ul Normal 0.0-0.7 [facility] Comment on above: Performed By: #### C BC #### [facility] [address] [place] [address] Dr. Evens Bowden Eosinophils/100 WBC (Bld) 2.6 % Normal 0.9-7.0 [facility] Comment on above: Performed By: #### C BC #### [facility] [address] [place] [address] Dr. Evens Bowden Erythrocyte distribution width (RBC) [Ratio] 13.7 % Normal 11.0-15.0 [facility] Comment on above: Performed By: #### C BC #### [facility] [address] [place] [address] Dr. Evens Bowden Hematocrit (Bld) [Volume fraction] 33.2 % Critically low 36.0-48.0 [facility] Comment on above: Performed By: #### C BC #### [facility] [address] [place] [address] Dr. Evens Bowden Hemoglobin (Bld) [Mass/Vol] 10.4 g/dL Critically low 12.0-16.0 [facility] Comment on above: Performed By: #### C BC #### [facility] [address] [place] [address] Dr. Evens Bowden IG # 0.02 10e3/ul Normal 0.00-0.03 [facility] Comment on above: Performed By: #### C BC #### [facility] [address] [place] [address] Dr. Evens Bowden IG % 0.4 % Normal 0.0-0.5 [facility] Comment on above: Performed By: #### C BC #### [facility] [address] [place] [address] Dr. Evens Bowden LYMPH # 2.0 103/ul Normal 1.2-3.8 [facility] Comment on above: Performed By: #### C BC #### [facility] [address] [place] [address] Dr. Evens Bowden Lymphocytes/100 WBC (Bld) 37.7 % Normal 20.5-60.0 [facility] Comment on above: Performed By: #### C BC #### [facility] [address] [place] [address] Dr. Evens Bowden MANUAL DIFF REQ NO Normal [facility] Comment on above: Performed By: #### C BC #### [facility] [address] [place] [address] Dr. Evens Bowden MCH (RBC) [Entitic mass] 27.2 pg Normal 26.7-34.0 [facility] Comment on above: Performed By: #### C BC #### [facility] [address] [place] [address] Dr. Evens Bowden MCHC (RBC) [Mass/Vol] 31.3 g/dL Normal 29.9-35.2 [facility] Comment on above: Performed By: #### C BC #### [facility] [address] [place] [address] Dr. Evens Bowden MCV (RBC) [Entitic vol] 86.9 fL Normal 81.0-99.0 [facility] Comment on above: Performed By: #### C BC #### [facility] [address] [place] [address] Dr. Evens Bowden MONO # 0.4 103/ul Normal 0.3-0.8 [facility] Comment on above: Performed By: #### C BC #### [facility] [address] [place] [address] Dr. Evens Bowden Monocytes/100 WBC (Bld) 7.1 % Normal 1.7-12.0 [facility] Comment on above: Performed By: #### C BC #### [facility] [address] [place] [address] Dr. Evens Bowden NEUT # 2.8 103/ul Normal 1.4-6.5 [facility] Comment on above: Performed By: #### C BC #### [facility] [address] [place] [address] Dr. Evens Bowden Neutrophils/100 WBC (Bld) 51.5 % Normal 43.0-75.0 [facility] Comment on above: Performed By: #### C BC #### [facility] [address] [place] [address] Dr. Evens Bowden Platelet mean volume (Bld) [Entitic vol] 8.6 fL Critically low 9.5-13.5 [facility] Comment on above: Performed By: #### C BC #### [facility] [address] [place] [address] Dr. Evens Bowden PLT 428 103/ul Normal 150-450 [facility] Comment on above: Performed By: #### C BC #### [facility] [address] [place] [address] Dr. Evens Bowden RBC 3.82 106/ul Critically low 4.20-5.40 [facility] Comment on above: Performed By: #### C BC #### [facility] [address] [place] [address] Dr. Evens Bowden WBC 5.4 103/ul Normal 4.0-11.0 [facility] Comment on above: Performed By: #### C BC #### [facility] [address] [address] [address] Evens Bowden CRPon 09-10-2021 CRP [Mass/Vol] mg/L Normal <=1.0 [facility] Comment on above: Performed By: #### C BC #### [facility] [address] [address] [address] Evens Bowden FREE THYROXINE INDEX T7on FTI 2.52 Normal [facility] Comment on above: Performed By: #### C BC #### [facility] [address] [address] [address] Evens Bowden T3U 35.0 % Normal 23.5-40.5 [facility] Comment on above: Performed By: #### C BC #### [facility] [address] [place] [address] Dr. Evens Bowden T4 [Mass/Vol] 7.20 ug/dL Normal 5.53-11.00 [facility] Comment on above: Performed By: #### C BC #### [facility] [address] [place] [address] Dr. Evens Bowden GLYCOHEMOGLOBIN A1Con 2021 ADA RECOMMENDATION ADA THERAPEUTIC TARG ET 6.0 - 7.0 ACTION SUGGESTED > 7.0 Normal [facility] Comment on above: Performed By: #### P JULIA MURRAY UMICRO #### [facility] [address] [address] Patria Escobaren Glucose [Mass/Vol] 117 mg/dL Normal [facility] Comment on above: Performed By: #### P JULIA MURRAY UMICRO #### [facility] [address] [place] [address] Patria Abebe HbA1c (Bld) [Mass fraction] 5.7 % Normal <=6.0 [facility] Comment on above: Performed By: #### P JULIA MURRAY UMICRO #### [facility] [address] [place] [address] Patria Abebe IRONon 09-10-2021 Iron [Mass/Vol] 46.0 ug/dL Normal 37.0-170.0 [facility] Comment on above: Performed By: #### I MULUGETA PEARSON #### [facility] [address] [address] [address] Evens Bowden LIPID PROFILEon 09-10-2021 CHOL-HDL RATIO NORM SEE BELOW Normal [facility] Comment on above: Result Comment: 3.3 - 4.4 LOW RISK 4.4 - 7.1 AVERAGE RISK 7.1 - 11.0 MODERATE RISK >11.0 HIGH RISK Performed By: #### C MP, TSH, T7, LIPID, CRP #### [facility] [address] [place] [address] Dr. Evens Bowden Cholesterol [Mass/Vol] 130 mg/dL Normal <=200 [facility] Comment on above: Performed By: #### C MP, TSH, T7, LIPID, CRP #### [facility] [address] [address] [address] Evens Bowden Cholesterol in HDL [Mass/Vol] 53 mg/dL Normal 40-60 [facility] Comment on above: Performed By: #### C MP, TSH, T7, LIPID, CRP #### [facility] [address] [address] [address] Evens Bowden Cholesterol in LDL [Mass/Vol] 69.2 mg/dL Normal [facility] Comment on above: Performed By: #### C MP, TSH, T7, LIPID, CRP #### [facility] [address] [address] [address] Evens Bowden Cholesterol.total/C holesterol in HDL [Mass ratio] 2.5 {ratio} Normal [facility] Comment on above: Performed By: #### C MP, TSH, T7, LIPID, CRP #### [facility] [address] [place] [address] Dr. Evens Bowden HDL NORMAL > or = 60 mg/dl - LO W CARDIOVASCULAR RISK <40 mg/dl - HIGH CARDIOVASCULAR RISK Normal [facility] Comment on above: Performed By: #### C MP, TSH, T7, LIPID, CRP #### [facility] [address] [address] [address] Evens Bowden LDL CALC NORMAL SEE BELOW Normal [facility] Comment on above: Result Comment: <100 mg/dl OPTIMAL 100 - 129 mg/dl NEAR OR ABOVE OPTIMAL 130 - 159 mg/dl BORDERLINE HIGH 160 - 189 mg/dl HIGH >190 mg/dl VERY HIGH Performed By: #### C MP, TSH, T7, LIPID, CRP #### [facility] [address] [address] [address] Evens Bowden Triglyceride [Mass/Vol] 39 mg/dL Normal <=150 [facility] Comment on above: Performed By: #### C MP, TSH, T7, LIPID, CRP #### [facility] [address] [address] [address] Evens Bowden VLDL CALC 7.8 mg/dL Normal [facility] Comment on above: Performed By: #### C MP, TSH, T7, LIPID, CRP #### [facility] [address] [place] [address] Dr. Evens Bowden PROF 14(COMP METB)on 022 Albumin [Mass/Vol] 4.0 g/dL Normal 3.4-5.0 [facility] Comment on above: Performed By: #### C MP, TSH, T7, LIPID, CRP #### [facility] [address] [place] [address] Dr. Evens Bowden Albumin/Globulin [Mass ratio] 1.1 {ratio} Normal [facility] Comment on above: Performed By: #### C MP, TSH, T7, LIPID, CRP #### [facility] [address] [place] [address] Dr. Evens Bowden ALP [Catalytic activity/Vol] 84 U/L Normal 46-116 [facility] Comment on above: Performed By: #### C MP, TSH, T7, LIPID, CRP #### [facility] [address] [address] [address] Evens Bowden ALT [Catalytic activity/Vol] 33 U/L Normal 14-59 [facility] Comment on above: Performed By: #### C MP, TSH, T7, LIPID, CRP #### [facility] [address] [place] [address] Dr. Evens Bowden Anion gap [Moles/Vol] 12.1 mmol/L Normal [facility] Comment on above: Performed By: #### C MP, TSH, T7, LIPID, CRP #### [facility] [address] [place] [address] Dr. Evens Bowden AST [Catalytic activity/Vol] 18 U/L Normal 15-37 [facility] Comment on above: Performed By: #### C MP, TSH, T7, LIPID, CRP #### [facility] [address] [place] [address] Dr. Evens Bowden Bilirubin [Mass/Vol] 0.5 mg/dL Normal 0.2-1.3 [facility] Comment on above: Performed By: #### C MP, TSH, T7, LIPID, CRP #### [facility] [address] [place] [address] Dr. Evens Bowden Calcium [Mass/Vol] 8.2 mg/dL Critically low 8.5-10.1 [facility] Comment on above: Performed By: #### C MP, TSH, T7, LIPID, CRP #### [facility] [address] [place] [address] Dr. Evens Bowden Chloride [Moles/Vol] 105 mmol/L Normal 98-107 [facility] Comment on above: Performed By: #### C MP, TSH, T7, LIPID, CRP #### [facility] [address] [place] [address] Dr. Evens Bowden CO2 [Moles/Vol] 26.3 mmol/L Normal 22.0-30.0 [facility] Comment on above: Performed By: #### C MP, TSH, T7, LIPID, CRP #### [facility] [address] [place] [address] Dr. Evens Bowden Creatinine [Mass/Vol] 0.62 mg/dL Normal 0.52-1.04 [facility] Comment on above: Performed By: #### C MP, TSH, T7, LIPID, CRP #### [facility] [address] [address] [address] Evens Bowden EGFR-AF MALIAN >60 Normal >=60 [facility] Comment on above: Performed By: #### C MP, TSH, T7, LIPID, CRP #### [facility] [address] [address] [address] Evens Bowden EGFR-NON AF MALIAN >60 Normal >=60 [facility] Comment on above: Performed By: #### C MP, TSH, T7, LIPID, CRP #### [facility] [address] [address] [address] Evens Bowden Globulin (S) [Mass/Vol] 3.5 g/dL Normal [facility] Comment on above: Performed By: #### C MP, TSH, T7, LIPID, CRP #### [facility] [address] [address] [address] Evens Bowden Glucose [Mass/Vol] 90 mg/dL Normal 74-106 [facility] Comment on above: Performed By: #### C MP, TSH, T7, LIPID, CRP #### [facility] [address] [address] [address] Evens Bowden Potassium [Moles/Vol] 4.4 mmol/L Normal 3.4-5.0 [facility] Comment on above: Performed By: #### C MP, TSH, T7, LIPID, CRP #### [facility] [address] [address] [address] Evens Bowden Protein [Mass/Vol] 7.5 g/dL Normal 6.1-8.2 [facility] Comment on above: Performed By: #### C MP, TSH, T7, LIPID, CRP #### [facility] [address] [address] [address] Evens Bowden Sodium [Moles/Vol] 139 mmol/L Normal 137-145 [facility] Comment on above: Performed By: #### C MP, TSH, T7, LIPID, CRP #### [facility] [address] [address] [address] Evens Bowden Urea nitrogen [Mass/Vol] 7.0 mg/dL Normal 7.0-18.0 [facility] Comment on above: Performed By: #### C MP, TSH, T7, LIPID, CRP #### [facility] [address] [place] [address] Dr. Evens Bowden Urea nitrogen/Creatinine [Mass ratio] 11.3 mg/mg Normal [facility] Comment on above: Performed By: #### C MP, TSH, T7, LIPID, CRP #### [facility] [address] [place] [address] Dr. Evens Bowden [facility]ATE 6 mm/hr Normal <=20 [facility] Comment on above: Performed By: #### M USKAB #### [facility] [address] [place] [address] Dr. Evens Bowden TSHon 09-10-2021 TSH 1.205 uIU/mL Normal 0.470-4.680 [facility] Comment on above: Performed By: #### C BC #### [facility] [address] [place] [address] Dr. Evens Bowden TSH RANGE SEE BELOW Normal [facility] Comment on above: Result Comment: <0.3 4 UIU/ml HYPERTHYROID 0.34-5.60 UIU/ml EUTHYROID >5.60 UIU/ml HYPOTHYROID Performed By: #### C BC #### [facility] [address] [place] [address] Dr. Evens Bowden VITAMIN D 25 OHon 09-10-2021 VIT D 25-OH 11.5 ng/mL Normal [facility] Comment on above: Performed By: #### I MICHEL VITAD #### [facility] [address] [place] [address] Dr. Evens Bowden VIT D RANGES SEE BELOW Normal [facility] Comment on above: Result Comment: <20 ng/mL Vit D deficient 20 - <30 ng/mL Vit D insufficient 30 - 100 ng/mL Vit D sufficient >100 ng/mL Potential Toxicity Performed By: #### I MICHEL VITAD #### [facility] [address] [place] [address] Dr. Evens Bowden VITAMIN B1 (THIAMINE)on 02-27 Vit. B1, Whole Blood 85.1 nmol/L Normal 66.5-200.0 [facility] Comment on above: Performed By: #### C BC #### [facility] [address] [place] [address] Dr. Evens Bowden CBC AUTO DIFFon 03-10-2021 BASO # 0.0 103/ul Normal 0.0-0.1 [facility] Comment on above: Performed By: #### M KAB #### [facility] [address] [place] [address] Dr. Evens Bowden Basophils/100 WBC (Bld) 0.8 % Normal 0.2-2.0 [facility] Comment on above: Performed By: #### M KAB #### [facility] [address] [place] [address] Dr. Evens Bowden EO # 0.2 103/ul Normal 0.0-0.7 [facility] Comment on above: Performed By: #### M MASOODB #### [facility] [address] [place] [address] Dr. Evens Bowden Eosinophils/100 WBC (Bld) 3.4 % Normal 0.9-7.0 [facility] Comment on above: Performed By: #### M MASOODB #### [facility] [address] [place] [address] Dr. Evens Bowden Erythrocyte distribution width (RBC) [Ratio] 13.2 % Normal 11.0-15.0 [facility] Comment on above: Performed By: #### M USKAB #### [facility] [address] [place] [address] Dr. Evens Bowden Hematocrit (Bld) [Volume fraction] 34.2 % Critically low 36.0-48.0 [facility] Comment on above: Performed By: #### M USKAB #### [facility] [address] [place] [address] Dr. Evens Bowden Hemoglobin (Bld) [Mass/Vol] 11.2 g/dL Critically low 12.0-16.0 [facility] Comment on above: Performed By: #### M USKAB #### [facility] [address] [address] [address] Evens Bowden IG # 0.01 10e3/ul Normal 0.00-0.03 [facility] Comment on above: Performed By: #### M USKAB #### [facility] [address] [place] [address] Dr. Evens Bowden IG % 0.2 % Normal 0.0-0.5 [facility] Comment on above: Performed By: #### M USKAB #### [facility] [address] [place] [address] Dr. Evens Bowden LYMPH # 1.6 103/ul Normal 1.2-3.8 [facility] Comment on above: Performed By: #### M USKAB #### [facility] [address] [place] [address] Dr. Evens Bowden Lymphocytes/100 WBC (Bld) 32.5 % Normal 20.5-60.0 [facility] Comment on above: Performed By: #### M USKAB #### [facility] [address] [place] [address] Dr. Evens Bowden MANUAL DIFF REQ NO Normal [facility] Comment on above: Performed By: #### M USKAB #### [facility] [address] [address] [address] Evens Bowden MCH (RBC) [Entitic mass] 30.6 pg Normal 26.7-34.0 [facility] Comment on above: Performed By: #### M USKAB #### [facility] [address] [address] [address] Evens Bowden MCHC (RBC) [Mass/Vol] 32.7 g/dL Normal 29.9-35.2 [facility] Comment on above: Performed By: #### M USKAB #### [facility] [address] [place] [address] Dr. Evens Bowden MCV (RBC) [Entitic vol] 93.4 fL Normal 81.0-99.0 [facility] Comment on above: Performed By: #### M USKAB #### [facility] [address] [address] [address] Evens Bowden MONO # 0.5 103/ul Normal 0.3-0.8 [facility] Comment on above: Performed By: #### M USKAB #### [facility] [address] [place] [address] Dr. Evens Bowden Monocytes/100 WBC (Bld) 10.7 % Normal 1.7-12.0 [facility] Comment on above: Performed By: #### M USKAB #### [facility] [address] [place] [address] Dr. Evens Bowden NEUT # 2.6 103/ul Normal 1.4-6.5 [facility] Comment on above: Performed By: #### M USKAB #### [facility] [address] [place] [address] Dr. Evens Bowden Neutrophils/100 WBC (Bld) 52.4 % Normal 43.0-75.0 [facility] Comment on above: Performed By: #### M USKAB #### [facility] [address] [place] [address] Dr. Evens Bowden Platelet mean volume (Bld) [Entitic vol] 9.3 fL Critically low 9.5-13.5 [facility] Comment on above: Performed By: #### M USKAB #### [facility] [address] [place] [address] Dr. Evens Bowden PLT 373 103/ul Normal 150-450 [facility] Comment on above: Performed By: #### M USKAB #### [facility] [address] [address] [address] Evens Bowden RBC 3.66 106/ul Critically low 4.20-5.40 [facility] Comment on above: Performed By: #### M USKAB #### [facility] [address] [place] [address] Dr. Evens Bowden WBC 5.0 103/ul Normal 4.0-11.0 [facility] Comment on above: Performed By: #### M USKAB #### [facility] [address] [address] [address] Evens Bowden FOLATEon 03-10-2021 FOLATE 7.50 ng/mL Normal >=2.76 [facility] Comment on above: Performed By: #### P REGUSHOSHANAR UMICRO #### [facility] [address] [place] [address] Patria Mis IRON AND TIBCon 03-10-2021 % SATURATION 8.7 % Normal [facility] Comment on above: Performed By: #### P REGSHOSHANA LangR UMICRO #### [facility] [address] [place] [address] Patria Mis Iron [Mass/Vol] 29.0 ug/dL Critically low 37.0-170.0 [facility] Comment on above: Performed By: #### P REGJULIA Lang UMICRO #### [facility] [address] [place] [address] Patria Mis TIBC DIRECT 332.0 ug/dL Normal 261.0-497.0 [facility] Comment on above: Performed By: #### P JULIA MURRAY UMICRO #### [facility] [address] [place] [address] Patria Mis MAGNESIUMon 03-10-2021 Magnesium [Mass/Vol] 1.7 mg/dL Normal 1.6-2.3 [facility] Comment on above: Performed By: #### C BC #### [facility] [address] [place] [address] Dr. Evens Bowden PHOSPHORUSon 03-10-2021 Phosphate [Mass/Vol] 3.7 mg/dL Normal 2.5-4.5 [facility] Comment on above: Performed By: #### C BC #### [facility] [address] [place] [address] Dr. Evens Bowden PROF 14(COMP METB)on 021 Albumin [Mass/Vol] 3.6 g/dL Normal 3.5-5.0 [facility] Comment on above: Performed By: #### C BC #### [facility] [address] [place] [address] Dr. Evens Bowden Albumin/Globulin [Mass ratio] 1.1 {ratio} Normal [facility] Comment on above: Performed By: #### C BC #### [facility] [address] [place] [address] Dr. Evens Bowden ALP [Catalytic activity/Vol] 91 U/L Normal 38-126 [facility] Comment on above: Performed By: #### C BC #### [facility] [address] [place] [address] Dr. Evens Bowden ALT [Catalytic activity/Vol] 31 U/L Normal 9-52 [facility] Comment on above: Performed By: #### C BC #### [facility] [address] [place] [address] Dr. Evens Bowden Anion gap [Moles/Vol] 12.5 mmol/L Normal [facility] Comment on above: Performed By: #### C BC #### [facility] [address] [place] [address] Dr. Evens Bowden AST [Catalytic activity/Vol] 22 U/L Normal 14-36 [facility] Comment on above: Performed By: #### C BC #### [facility] [address] [place] [address] Dr. Evens Bowden Bilirubin [Mass/Vol] 0.4 mg/dL Normal 0.2-1.3 [facility] Comment on above: Performed By: #### C BC #### [facility] [address] [place] [address] Dr. Evens Bowden Calcium [Mass/Vol] 8.2 mg/dL Critically low 8.4-10.2 [facility] Comment on above: Performed By: #### C BC #### [facility] Laboratory [address] [place] [address] Dr. Evens Bowden Chloride [Moles/Vol] 106 mmol/L Normal 98-107 [facility] Comment on above: Performed By: #### C BC #### [facility] [address] [address] [address] Evens Bowden CO2 [Moles/Vol] 26.3 mmol/L Normal 22.0-30.0 [facility] Comment on above: Performed By: #### C BC #### [facility] [address] [place] [address] Dr. Evens Bowden Creatinine [Mass/Vol] 0.57 mg/dL Normal 0.52-1.04 [facility] Comment on above: Performed By: #### C BC #### [facility] [address] [place] [address] Dr. Evens Bowden EGFR-AF MALIAN >60 Normal >=60 [facility] Comment on above: Performed By: #### C BC #### [facility] [address] [place] [address] Dr. Evens Bowden EGFR-NON AF MALIAN >60 Normal >=60 [facility] Comment on above: Performed By: #### C BC #### [facility] [address] [place] [address] Dr. Evens Bowden Globulin (S) [Mass/Vol] 3.4 g/dL Normal [facility] Comment on above: Performed By: #### C BC #### [facility] [address] [place] [address] Dr. Evens Bowden Glucose [Mass/Vol] 92 mg/dL Normal 74-106 [facility] Comment on above: Performed By: #### C BC #### [facility] [address] [place] [address] Dr. Evens Bowden Potassium [Moles/Vol] 3.8 mmol/L Normal 3.4-5.0 [facility] Comment on above: Performed By: #### C BC #### [facility] [address] [place] [address] Dr. Evens Bowden Protein [Mass/Vol] 7.0 g/dL Normal 6.1-8.2 [facility] Comment on above: Performed By: #### C BC #### [facility] [address] [place] [address] Dr. Evens Bowden Sodium [Moles/Vol] 141 mmol/L Normal 137-145 [facility] Comment on above: Performed By: #### C BC #### [facility] [address] [place] [address] Dr. Evens Bowden Urea nitrogen [Mass/Vol] 7.0 mg/dL Normal 7.0-17.0 [facility] Comment on above: Performed By: #### C BC #### [facility] [address] [place] [address] Dr. Evens Bowden Urea nitrogen/Creatinine [Mass ratio] 12.3 mg/mg Normal [facility] Comment on above: Performed By: #### C BC #### [facility] [address] [place] [address] Dr. Evens Bowden VITAMIN B12on 03-10-2021 Cobalamin (Vitamin B12) [Mass/Vol] 211.0 pg/mL Critically low 239.0-931.0 [facility] Comment on above: Performed By: #### JULIA GARCIA UMICRO #### [facility] [address] [place] [address] Patria Mis VITAMIN D 25 OHon 03-10-2021 VIT D 25-OH 15.8 ng/mL Normal [facility] Comment on above: Performed By: #### JULIA GARCIA UMICRO #### [facility] [address] [place] [address] Patria Mis VIT D RANGES SEE BELOW Normal [facility] Comment on above: Result Comment: <20 ng/mL Vit D deficient 20 - <30 ng/mL Vit D insufficient 30 - 100 ng/mL Vit D sufficient >100 ng/mL Potential Toxicity Performed By: #### JULIA GARCIA UMICRO #### [facility] [address] [place] [address] Patria Mis VITAMIN D 25 OHon 02-10-2021 VIT D 25-OH 16.7 ng/mL Normal [facility] Comment on above: Performed By: #### M ERIK #### [facility] [address] [place] [address] Dr. Evens Bowden VIT D RANGES SEE BELOW Normal [facility] Comment on above: Result Comment: <20 ng/mL Vit D deficient 20 - <30 ng/mL Vit D insufficient 30 - 100 ng/mL Vit D sufficient >100 ng/mL Potential Toxicity Performed By: #### M USKAB #### [facility] [address] [place] [address] Dr. Evens Bowden CBC AUTO DIFFon 01-02-2021 BASO # 0.1 103/ul Normal 0.0-0.1 [facility] Comment on above: Performed By: #### C BC #### [facility] [address] [place] [address] Dr. Evens Bowden Basophils/100 WBC (Bld) 0.5 % Normal 0.2-2.0 [facility] Comment on above: Performed By: #### C BC #### [facility] [address] [place] [address] Dr. Evens Bowden EO # 0.0 103/ul Normal 0.0-0.7 [facility] Comment on above: Performed By: #### C BC #### [facility] [address] [place] [address] Dr. Evens Bowden Eosinophils/100 WBC (Bld) 0.4 % Critically low 0.9-7.0 [facility] Comment on above: Performed By: #### C BC #### [facility] [address] [place] [address] Dr. Evens Bowden Erythrocyte distribution width (RBC) [Ratio] 13.2 % Normal 11.0-15.0 [facility] Comment on above: Performed By: #### C BC #### [facility] [address] [place] [address] Dr. Evens Bowden Hematocrit (Bld) [Volume fraction] 35.3 % Critically low 36.0-48.0 [facility] Comment on above: Performed By: #### C BC #### [facility] [address] [place] [address] Dr. Evens Bowden Hemoglobin (Bld) [Mass/Vol] 11.6 g/dL Critically low 12.0-16.0 [facility] Comment on above: Performed By: #### C BC #### [facility] [address] [place] [address] Dr. Evens Bowden IG # 0.02 10e3/ul Normal 0.00-0.03 [facility] Comment on above: Performed By: #### C BC #### [facility] [address] [place] [address] Dr. Evens Bowden IG % 0.2 % Normal 0.0-0.5 [facility] Comment on above: Performed By: #### C BC #### [facility] [address] [place] [address] Dr. Evens Bowden LYMPH # 1.1 103/ul Critically low 1.2-3.8 [facility] Comment on above: Performed By: #### C BC #### [facility] [address] [place] [address] Dr. Evens Bowden Lymphocytes/100 WBC (Bld) 11.0 % Critically low 20.5-60.0 [facility] Comment on above: Performed By: #### C BC #### [facility] [address] [place] [address] Dr. Evens Bowden MANUAL DIFF REQ NO Normal [facility] Comment on above: Performed By: #### C BC #### [facility] [address] [place] [address] Dr. Evens Bowden MCH (RBC) [Entitic mass] 30.5 pg Normal 26.7-34.0 [facility] Comment on above: Performed By: #### C BC #### [facility] [address] [place] [address] Dr. Evens Bowden MCHC (RBC) [Mass/Vol] 32.9 g/dL Normal 29.9-35.2 [facility] Comment on above: Performed By: #### C BC #### [facility] [address] [place] [address] Dr. Evens Bowden MCV (RBC) [Entitic vol] 92.9 fL Normal 81.0-99.0 [facility] Comment on above: Performed By: #### C BC #### [facility] [address] [address] [address] Evens Bowden MONO # 0.6 103/ul Normal 0.3-0.8 [facility] Comment on above: Performed By: #### C BC #### [facility] [address] [address] [address] Evens Bowden Monocytes/100 WBC (Bld) 6.2 % Normal 1.7-12.0 [facility] Comment on above: Performed By: #### C BC #### [facility] [address] [place] [address] Dr. Evens Bowden NEUT # 8.4 103/ul Critically high 1.4-6.5 [facility] Comment on above: Performed By: #### C BC #### [facility] [address] [place] [address] Dr. Evens Bowden Neutrophils/100 WBC (Bld) 81.7 % Critically high 43.0-75.0 [facility] Comment on above: Performed By: #### C BC #### [facility] [address] [place] [address] Dr. Evens Bowden Platelet mean volume (Bld) [Entitic vol] 10.0 fL Normal 9.5-13.5 [facility] Comment on above: Performed By: #### C BC #### [facility] [address] [place] [address] Dr. Evens Bowden PLT 317 103/ul Normal 150-450 [facility] Comment on above: Performed By: #### C BC #### [facility] [address] [place] [address] Dr. Evens Bowden RBC 3.80 106/ul Critically low 4.20-5.40 [facility] Comment on above: Performed By: #### C BC #### [facility] [address] [place] [address] Dr. Evens Bowden WBC 10.2 103/ul Normal 4.0-11.0 [facility] Comment on above: Performed By: #### C BC #### [facility] [address] [place], [place] [id number] Dr. Evens Bowden CT ABD/PELVIS WO CONon [...] AUDREY ROWE Date: 2021-01-02 10:13 Normal [facility] CULTURE URINEon 01-02-2021 CULTURE URINE Culture Observations : MODERATE GROWTH OF MIXED GENITAL SHEYLA. NO POTENTIAL PATHOGENS SEEN. Normal [facility] Comment on above: Performed By: #### M USKAB #### [facility] [address] [address] [address] Evens Bowden ER URINE PROFILEon 1 Bilirubin Ql (U) SMALL Abnormal NEGATIVE [facility] Comment on above: Performed By: #### P REGU, ERUR, UMICRO #### [facility] [address] [address] Patria Mis Clarity (U) SL CLOUDY Abnormal CLEAR [facility] Comment on above: Performed By: #### P REGU, ERUR, UMICRO #### [facility] [address] [address] Patria Mis Color (U) YELLOW Normal YELLOW [facility] Comment on above: Performed By: #### P REGU, ERUR, UMICRO #### [facility] [address] [place] [address] Patria Mis ERUAHD A micrscopic examina tion will be performed if indicated. Normal [facility] Comment on above: Performed By: #### P REGU, ERUR, UMICRO #### [facility] [address] [place] [address] Patria Mis Glucose Ql (U) Negative Normal NEGATIVE [facility] Comment on above: Performed By: #### P REGU, ERUR, UMICRO #### [facility] [address] [place] [address] Patria Mis Hemoglobin Ql (U) TRACE-LYSED Abnormal NEGATIVE [facility] Comment on above: Performed By: #### P REGU, ERUR, UMICRO #### [facility] [address] [address] Patria Mis Ketones Ql (U) 40 mg/dl Abnormal NEGATIVE [facility] Comment on above: Performed By: #### P REGU, ERUR, UMICRO #### [facility] [address] [place] [address] Patria Mis LEUKOCYTES Negative Normal NEGATIVE [facility] Comment on above: Performed By: #### P REGU, ERUR, UMICRO #### [facility] [address] [place] [address] Patria Mis Nitrite Ql (U) Negative Normal NEGATIVE [facility] Comment on above: Performed By: #### P REGU, ERUR, UMICRO #### [facility] [address] [place] [address] Patria Mis pH (U) 6.0 [pH] Normal 5-9 [facility] Comment on above: Performed By: #### P REGU, ERUR, UMICRO #### [facility] [address] [place] [address] Patria Abebe SPEC GRAVITY >=1.030 Abnormal 1.005-<=1.025 [facility] Comment on above: Performed By: #### P REGU, ERUR, UMICRO #### [facility] [address] [place] [address] Patria Abebe UA PROTEIN Negative Normal NEGATIVE/ TRACE [facility] Comment on above: Performed By: #### P REGU, ERUR, UMICRO #### [facility] [address] [place] [address] Patria Abebe UR MICRO IND INDICATED Normal [facility] Comment on above: Performed By: #### P REGU, ERUR, UMICRO #### [facility] [address] [place] [address] Patria Abebe Urobilinogen Qn (U) 4 {Johnnie'U}/dL Abnormal 0.2 - 1.0 [facility] Comment on above: Performed By: #### P REGU, ERUR, UMICRO #### [facility] [address] [place] [address] Patria Abebe LIPASEon 01-02-2021 Lipase [Catalytic activity/Vol] 64.0 U/L Normal 23.0-300.0 [facility] Comment on above: Performed By: #### C BC #### [facility] [address] [place] [address] Dr. Evens Bowden URon 01-02-2021 , QUAL Negative Normal NEGATIVE [facility] Comment on above: Performed By: #### P REGU, ERUR, UMICRO #### [facility] [address] [place] [address] Patria Abebe PROF 14(COMP METB)on 021 Albumin [Mass/Vol] 4.2 g/dL Normal 3.5-5.0 [facility] Comment on above: Performed By: #### C BC #### [facility] [address] [place] [address] Dr. Evens Bowden Albumin/Globulin [Mass ratio] 1.1 {ratio} Normal [facility] Comment on above: Performed By: #### C BC #### [facility] [address] [place] [address] Dr. Evens Bowden ALP [Catalytic activity/Vol] 100 U/L Normal 38-126 [facility] Comment on above: Performed By: #### C BC #### [facility] [address] [place] [address] Dr. Evens Bowden ALT [Catalytic activity/Vol] 41 U/L Normal 9-52 [facility] Comment on above: Performed By: #### C BC #### [facility] [address] [place] [address] Dr. Evens Bowden Anion gap [Moles/Vol] 14.4 mmol/L Normal [facility] Comment on above: Performed By: #### C BC #### [facility] [address] [place] [address] Dr. Evens Bowden AST [Catalytic activity/Vol] 30 U/L Normal 14-36 [facility] Comment on above: Performed By: #### C BC #### [facility] [address] [place] [address] Dr. Evens Bowden Bilirubin [Mass/Vol] 0.5 mg/dL Normal 0.2-1.3 [facility] Comment on above: Performed By: #### C BC #### [facility] [address] [place] [address] Dr. Evens Bowden Calcium [Mass/Vol] 9.0 mg/dL Normal 8.4-10.2 [facility] Comment on above: Performed By: #### C BC #### [facility] [address] [place] [address] Dr. Evens Bowden Chloride [Moles/Vol] 106 mmol/L Normal 98-107 [facility] Comment on above: Performed By: #### C BC #### [facility] [address] [place] [address] Dr. Evens Bowden CO2 [Moles/Vol] 26.3 mmol/L Normal 22.0-30.0 [facility] Comment on above: Performed By: #### C BC #### [facility] [address] [address] [address] Evens Bowden Creatinine [Mass/Vol] 0.74 mg/dL Normal 0.52-1.04 [facility] Comment on above: Performed By: #### C BC #### [facility] [address] [address] [address] Evens Bowden EGFR-AF MALIAN >60 Normal >=60 [facility] Comment on above: Performed By: #### C BC #### [facility] [address] [address] [address] Evens Bowden EGFR-NON AF MALIAN >60 Normal >=60 [facility] Comment on above: Performed By: #### C BC #### [facility] [address] [place] [address] Dr. Evens Bowden Globulin (S) [Mass/Vol] 3.7 g/dL Normal [facility] Comment on above: Performed By: #### C BC #### [facility] [address] [place] [address] Dr. Evens Bowden Glucose [Mass/Vol] 112 mg/dL Critically high 74-106 [facility] Comment on above: Performed By: #### C BC #### [facility] [address] [place] [address] Dr. Evens Bowden Potassium [Moles/Vol] 3.7 mmol/L Normal 3.4-5.0 [facility] Comment on above: Performed By: #### C BC #### [facility] [address] [place] [address] Dr. Evens Bowden Protein [Mass/Vol] 7.9 g/dL Normal 6.1-8.2 [facility] Comment on above: Performed By: #### C BC #### [facility] [address] [place] [address] Dr. Evens Bowden Sodium [Moles/Vol] 143 mmol/L Normal 137-145 [facility] Comment on above: Performed By: #### C BC #### [facility] [address] [address] [address] Evens Bowden Urea nitrogen [Mass/Vol] 10.0 mg/dL Normal 7.0-17.0 [facility] Comment on above: Performed By: #### C BC #### [facility] [address] [address] [address] Evens Bowden Urea nitrogen/Creatinine [Mass ratio] 13.5 mg/mg Normal [facility] Comment on above: Performed By: #### C BC #### [facility] [address] [address] [address] Evens Bowden URINE MICROSCOPIC ONLYon BACTERIA MODERATE Abnormal NONE SEEN [facility] Comment on above: Performed By: #### P REGSHOSHANA LangR UMICRO #### [facility] [address] [address] Patria Mis Bacteria identified Cx Nom (U) INDICATED Normal [facility] Comment on above: Performed By: #### P REGRickey ERUR UMICRO #### [facility] [address] [address] Patria Mis CAST NONE SEEN Normal NONE SEEN [facility] Comment on above: Performed By: #### P REGSHOSHANA LangR UMICRO #### [facility] [address] [place] [address] Patria Mis Crystals LM Nom (Urine sed) NONE SEEN Normal NONE SEEN [facility] Comment on above: Performed By: #### P REGU ERUR, UMICRO #### [facility] [address] [address] Patria Mis Epithelial cells LM Ql (Urine sed) FEW Abnormal NONE SEEN /RARE [facility] Comment on above: Performed By: #### P REGU ERUR, UMICRO #### [facility] [address] [address] Patria Mis MUCOUS TRACE Abnormal NONE SEEN [facility] Comment on above: Performed By: #### P REGU ERUR, UMICRO #### [facility] [address] [place] [address] Patria Mis RBC 0-2 Normal 0-2 [facility] Comment on above: Performed By: #### P JULIA MURRAY UMICRO #### [facility] [address] [place], [place] [address] Patria Abebe WBC 0-2 Abnormal NONE SEEN [facility] Comment on above: Performed By: #### P JULIA MURRAY UMICRO #### [facility] [address] [place], [place] [address] Patria Abebe MRI KNEE RT WO CONon [...] by: ALISON TONEY Date: 2020-12-08 16:25 Normal [facility] CBC and Differentialon 03-10 Abs Baso 0.03 k/uL Normal <0.11 [facility] Abs Ness 0.81 k/uL Normal <0.87 [facility] Abs Neut 2.94 k/uL Normal 1.45-7.50 [facility] Absolute nRBC <0.01 Normal <0.01 [facility] Basophils/100 WBC Auto (Bld) 0.5 % Normal [facility] DTYPE Auto Diff Normal [facility] Eosinophils Auto #/vol (Bld) 0.27 10*3/uL Normal <0.46 [facility] Eosinophils/100 WBC Auto (Bld) 4.6 % Normal [facility] Erythrocyte distribution width Auto Ratio (RBC) 12.7 % Normal 11.5-15.0 [facility] Hematocrit Auto Volume Fraction (Bld) 36.0 % Normal 36.0-46.0 [facility] Hemoglobin mass conc (Bld) 12.1 g/dL Normal 11.5-15.5 [facility] Lymphocytes Auto #/vol (Bld) 1.88 10*3/uL Normal 1.00-4.00 [facility] Lymphocytes/100 WBC Auto (Bld) 31.7 % Normal [facility] MCH Auto Entitic mass (RBC) 30.6 pG Normal 26.0-34.0 [facility] MCHC Auto mass conc (RBC) 33.6 g/dL Normal 30.5-36.0 [facility] MCV Auto Entitic volume (RBC) 91.1 fL Normal 80.0-100.0 [facility] Monocytes/100 WBC Auto (Bld) 13.7 % Normal [facility] Neutrophils/100 WBC Auto (Bld) 49.5 % Normal [facility] NRBCs 0.0 /100 WBC Normal 0 [facility] Platelet mean volume Auto Entitic volume (Bld) 9.4 fL Normal 9.0-12.7 [facility] Platelets Auto #/vol (Bld) 257 10*3/uL Normal 150-400 [facility] RBC Auto #/vol (Bld) 3.95 10*6/uL Normal 3.90-5.20 [facility] WBC Auto #/vol (Bld) 5.93 10*3/uL Normal 3.70-11.00 [facility] Comp Metabolic Panelon 03-10 Albumin mass conc 3.6 g/dL Low 3.9-4.9 [facility] ALP enzyme act/vol 46 U/L Normal 34-123 [facility] ALT enzyme act/vol 18 U/L Normal 7-38 [facility] Anion gap 3 molar conc 10 mmol/L Normal 9-18 [facility] AST enzyme act/vol Unable to assay. Román hernandez significantly hemolyzed. Normal 13-35 [facility] Bilirubin mass conc 0.2 mg/dL Normal 0.2-1.3 [facility] Calcium mass conc 8.1 mg/dL Low 8.6-10.0 [facility] Chloride molar conc 103 mmol/L Normal 97-105 [facility] CO2 molar conc 27 mmol/L Normal 22-30 [facility] Creatinine mass conc 0.68 mg/dL Normal 0.58-0.96 [facility] eGFR- Amer. >60 Normal [facility] GFR/1.73 sq M predicted among non-blacks MDRD vol rate/area (S/P/Bld) mL/min/{1.73_m2} Normal [facility] Comment on above: Result Comment: eGFR [...] Glucose mass conc 105 mg/dL High 74-99 [facility] Comment on above: Result Comment: The [place] [employer] (ADA) provides guidance for cutoff [...] Standards of Medical Care in Diabetes 2016, [place] [employer]. Diabetes Care. 2016.39(Suppl 1). Potassium molar conc 4.1 mmol/L Normal 3.7-5.1 [facility] Protein mass conc 6.1 g/dL Low 6.3-8.0 [facility] Sodium molar conc 140 mmol/L Normal 136-144 [facility] Urea nitrogen mass conc 8 mg/dL Normal 7-21 [facility] ED NOTEon 03-10-2018 ED NOTE HNO ID: [id number] thor: Iliana (Rn) Dawn Padillaice: (none)Author Type: Registered NurseType: ED NotesFiled: 03/10/2018 3:32 AMNote Text: Discharge instructions per provider, the patient verbalizesunderstanding. No additional questions or concerns at this time. Patient Vital signs stable, no acute distress noted. Patient ambulatory out ofED. [facility] ED NOTE HNO ID: [id number] Author: Gayla (Rn) DUSTIN Hurtado Service: (none) Author Type: Registered Nurse Type: ED Notes Filed: 03/10/2018 2:46 AM Note Text: Clean catch urine specimen obtained and sent. [facility] ED NOTE HNO ID: [id number] Author: Gayla CastRn) DUSTIN Hurtado Service: (none) Author Type: Registered Nurse Type: ED Notes Filed: 03/10/2018 12:36 AM Note Text: Patient transported to [facility] with Tech. [facility] ED NOTE HNO ID: [id number] thor: Felipe (Medic) James Alarcon: (none)Author Type: Furniture Installer and TechnicianType: ED NotesFiled: 03/09/2018 11:50 PMNote [...] ETC. Denies N/V, SOB. No othercomplaints noted. [facility] ED PROV NOTEon 03-10-2018 Protein mass conc HNO ID: [id number] thor: Francis Eagle: (none)Author Type: PhysicianType: ED Provider NotesFiled: 03/10/2018 6:42 AMNote Text:ED Provider NotePatient Name: Joesph Carter LizbethRN: [id number] DATE: 03/09/18HistoryPatient presents with:Chest PainPhysical 27-year-old female [...] 10 0321Chest wall painMDM / Disposition / [id number] female comes into the emergency department complaining [...] Normal sinus rhythmRate: 80Axis: Normal axisIntervals: Normal ND intervalQRS Complex: NormalST Segment: Normal ST-T segmentsQT Interval: NormalCompared with Prior:Interpretation performed by Shar AvilaThe patient was discharged.Counseled patient regarding lab results, radiology results and suspecteddiagnosis. As well as the need for follow-up. Discharged home withverbal and written instructions. They were instructed to return as neededfor persistent or worsening symptoms or any new concerns.Condition at disposition is improved.SIGNATURE: Chapin Avila, PA03/10/18 0319Attending NoteI have personally performed a face [...] As editedSignature: CLARKE Powellate: 03/10/2018Time: 6:40 AMAaron [facility]03/10/18 0642 [facility] EKGon 03-10-2018 Protein mass conc NAME : MARK CISSE ID : [id number] : 1990 Gender : FemaleRace : CaucasianORD : Procedure Date : Mar 09 2018 23:52:59Edit Date : Mar 10 2018 05:16:28 Diagnosis:Normal sinus rhythmNormal ECGNo previous ECGs availableConfirmed by DO SILVA AARON ([id number]), technical editor DEIRDRE ELIZONDO ([id number]) on 03/10/2018 5:16:22 AM Ventricular Rate : 80 BPMAtrial Rate : 80 BPMP-R Interval : 166 msQRS Duration : 92 msQ-T Interval : 394 msQTC Calculation(Bezet) : 454 msP [place] : 25 degreesR [place] : 19 degreesT [place] : 29 degrees Test Reason : Location : 302 : ED ED Overread By : DO SILVA AARONEdited By : MIKE ELIZONDOERReferred By : ,Acquired by : , [facility] High Sens Troponin Ton 03-10 High Sensitivity RONAK <6 Normal <12 [facility] Comment on above: Result Comment: When [...] MACE. High Sensitivity RONAK <6 Normal <12 [facility] Comment on above: Result Comment: When [...] Lipase enzyme act/vol 26 U/L Normal 16-61 [facility] PROGRESSon 03-10-2018 Protein mass conc HNO ID: [id number] thor: Mehreen Alves RtService: (none)Author Type: (none)Type: Progress NotesFiled: 03/10/2018 12:51 AMNote Text: Radiology Service Progress NotePATIENT NAME: Joesph NievesRN: [id number] OF SERVICE: March 10, 2018TIME: 12:50 AMPATIENT IDENTITY VERIFICATION COMPLETED USING TWO (2) METHODS: Patientconfirmed name verbally and ID band matches..PATIENT GENDER DATA: Female. status: : NoBreastfeeding status: NO.PATIENT RELEVANT IMPLANT DATA REVIEWED: YesRADIOLOGY DEPARTMENT: General X-ray: Exam(s) Completed: Chest X-RayPERIPHERAL IV DATA: Not applicableSIGNED BY: Mehreen Alves RtOctober 2017 12:50 AM [facility] XR CHEST 2V FRONTAL/LATon XR [...] displaced acute fractures are detected.IMPRESSION:No acute radiographic abnormality.Construction Specialist ist: PSCB Transcribe Date/Time: Mar 10 2018 1:00ADictated by : VIK BURDICK MDThis examination was interpreted and the report reviewed and electronically signed by: VIK BURDICK MD on Mar 10 2018 1:01AM [id number] Normal [facility] Vital Signs Date Time Vital Sign Value Performing Clinician Faci armeny 10-19-2023 08:47-0400 Body height 162.6 cm [employer] Work Phone: [facility] 10-19-2023 08:47-0400 Body mass index (BMI) [Ratio] 34.33 kg/m2 [facility] Medication Review Work Phone: [facility] 10-19-2023 08:47-0400 Body weight 90.72 kg [facility] Medication Review Work Phone: [facility] 05-31-2023 15:25-0500 Body height 160 cm Jarod Weeks MD Work Phone: [facility] 05-31-2023 15:25-0500 Body mass index (BMI) [Ratio] 37.74 kg/m2 Jarod Weeks MD Work Phone: [facility] 05-31-2023 15:25-0500 Body weight 96.62 kg Jarod Weeks MD Work Phone: [facility] 05-31-2023 15:25-0500 Diastolic blood pressure 78 mm[Hg] Jarod Weeks MD Work Phone: [facility] 05-31-2023 15:25-0500 Respiratory rate 18 /min Jarod Weeks MD Work Phone: [facility] 05-31-2023 15:25-0500 Systolic blood pressure 124 mm[Hg] Jarod Weeks MD Work Phone: [facility] Encounters Encounter Date Encounter Type Care Provider Facility Start: 02-13-2024 End: 02-13-2024 ambulatory SHANNAN KUMAR Not Available Start: 01-19-2024 End: 01-19-2024 ambulatory SHANNAN KUMAR Not Available Start: 01-16-2024 End: 01-16-2024 ambulatory Jefferson York MD Facility:[facility] Start: 01-14-2024 End: 01-14-2024 ambulatory [facility] Start: 01-02-2024 End: 01-02-2024 ambulatory Jefferson York MD Facility:[facility] Start: 12-26-2023 End: 12-26-2023 ambulatory Jefferson York MD Facility:[facility] Start: 11-03-2023 End: 11-03-2023 ambulatory DEIRDRE CHAVEZ Not Available Start: 10-19-2023 End: 10-19-2023 ambulatory WILL DUPREE Facility:[facility] Start: 10-19-2023 End: 10-19-2023 ambulatory Will Dupree DO Work Phone: [facility] Comment on above: Hypermobility of lillie nt (Primary Dx) Start: 10-19-2023 End: 10-19-2023 Telemedicine consultation with patient Will Dupree DO Work Phone: [facility] Start: 09-28-2023 End: 09-28-2023 ambulatory [facility] Start: 09-26-2023 End: 09-26-2023 ambulatory [facility] Start: 09-23-2023 End: [facility] Start: 09-21-2023 End: 09-21-2023 ambulatory [facility] Start: 09-19-2023 End: 09-19-2023 ambulatory [facility] Start: 09-10-2023 End: 09-10-2023 ambulatory BIA MACIEL [facility] Start: 09-08-2023 End: 09-08-2023 ambulatory [facility] Start: 05-31-2023 End: 05-31-2023 ambulatory [facility] Start: 05-31-2023 End: 05-31-2023 Office outpatient visit 25 minutes Jarod Weeks MD Work Phone: [facility] Comment on above: Greater trochanteric bursitis of both hips (Primary Dx); Fibromyalgia; Vitamin B 12 deficiency; Anserine bursitis Start: 11-23-2021 End: 11-23-[address] BIA MACIEL Facility:[facility] Start: 11-03-2021 End: 11-04-[address] JERAMIE ATKINSON Facility:[facility] Start: 11-02-2021 End: 11-03-[address] JERAMIE ATKINSON Facility:[facility] Start: 10-01-2021 End: 10-02-[address] BIA MACIEL Facility:[facility] Start: 09-10-2021 End: 09-11-[address] BAI MACIEL Facility:[facility] Start: 03-10-2021 End: 03-11-[address] DOCTOR SMYTH Facility:[facility] Start: 02-10-2021 End: 02-11-[address] DOCTOR SMYTH Facility:[facility] Start: 01-02-2021 End: 01-02-[address] BIA MACIEL Facility:[facility] Start: 12-08-2020 End: 12-09-[address] BIA MACIEL Facility:[facility] Start: 03-10-2018 End: 03-10-2018 Emergency department patient visit [facility] Plan of Treatment Date Care Activity Detail Author Start: 11-24-2031 DTaP,Tdap and Td Vaccines (2 - Tdap) DTaP,Tdap and Td Vaccines (2 - Tdap) [facility] Start: 11-24-2031 Urine microalbumin profile DTaP,Tdap,Td Vaccine (2 - Tdap) [facility] Start: 05-31-2024 Adult BMI Screening Adult BMI Screening [facility] Start: 02-17-2024 Tobacco Screening Tobacco Screening [facility] Start: 01-29-2024 Influenza vaccination Influenza Vaccine (Season Ended) [facility] Start: 09-08-2023 End: 09-08-2023 Patient encounter procedure 09/08/2023 11:30 AM EDT Office Visit [facility] [address] [facility] [place] [address] Jarod Weeks MD [address] [address] [facility] Start: 05-30-2023 Behavioral Health Screening Behavioral Health Screening [facility] Start: 01-28-2023 COVID-19 Vaccine ( season) COVID-19 Vaccine ( season) [facility] Start: 01-28-2023 Influenza vaccination [facility] Start: 2022 Screening for malignant neoplasm of cervix HPV Testing [facility] Start: 2013 Screening for malignant neoplasm of cervix [facility] Start: 2011 Hepatitis B Vaccine (1 of 3 - 19+ 3-dose series) Hepatitis B Vaccine (1 of 3 - 19+ 3-dose series) [facility] Start: 2010 Adult BMI Follow Up Plan Adult BMI Follow Up Plan [facility] Start: 2010 Hepatitis C screening Hepatitis C Screening [facility] Start: 2010 HIV screening HIV Screening [facility] Start: 2004 Depression Screening Depression Screening [facility] Payers Date Payer Category Payer Unknown 2022 Private Health Insurance [id number] 2022 Private Health Insurance [id number] 2022 Unknown [id number] 1992 Unknown [id number] 2.16.84 0.1.554864.3.579.2.593 1992 Unknown [id number] 2.16.84 0.1.213375.3.579.2.593 1992 Unknown [id number] 2.16.84 0.1.923282.3.579.2.593 1992 Unknown [id number] 2.16.84 0.1.142293.3.579.2.593 1992 Unknown [id number] 2.16.84 0.1.477353.3.579.2.593 1992 Unknown [id number] 2.16.84 0.1.439268.3.579.2.593 1992 Unknown [id number] 2.16.84 0.1.162370.3.579.2.593 1992 Unknown [id number] 2.16.84 0.1.430532.3.579.2.593 1992 Unknown [id number] 2.16.84 0.1.264812.3.579.2.593 1992 Unknown [id number] 2.16.84 0.1.884743.3.579.2.1286 1992 Unknown [id number] 2.16.8 40.1.592913.3.579.2.1286 1992 Unknown [id number] 2.16.8 40.1.591735.3.579.2.1286 1992 Unknown [id number] 2.16.8 40.1.587259.3.579.2.1286 1992 Unknown [id number] 2.16.8 40.1.777311.3.579.2.1286 1992 Unknown [id number] 2.16.8 40.1.863595.3.579.2.1286 1992 Unknown [id number] 2.16.8 40.1.726248.3.579.2.1286 1992 Unknown [id number] 2.16.8 40.1.910393.3.579.2.1286 1992 Unknown [id number] 2.16.8 40.1.711008.3.579.2.1286 1992 Unknown [id number] 2.16.8 40.1.207963.3.579.2.1286 1992 Unknown [id number] 2.16. 840.1.996642.3.579.2.196 1992 Unknown [id number] 2.16. 840.1.562532.3.579.2.196 1992 Unknown [id number] 2.16. 840.1.280379.3.579.2.196 1992 Unknown [id number] 2.16.84 0.1.683385.3.579.2.9 1992 Unknown [id number] 2.16.84 0.1.195884.3.579.2.9 1992 Unknown [id number] 2.16.84 0.1.449230.3.579.2.9 1992 Unknown [id number] 2.16.84 0.1.238344.3.579.2.1259 1959 Unknown [id number] Social History Date Type Detail Facility Start: 10-11-2022 End: 10-19-2023 Tobacco smoking status AKIS Never smoked tobacco [facility] Start: 10-11-2022 End: 10-19-2023 Tobacco use and exposure Smokeless tobacco non-user [facility] Start: 02-16-2023 Alcohol intake Current drinke r of alcohol (finding) [facility] Start: 02-16-2023 End: 10-19-2023 Alcohol intake [facility] Start: 02-16-2023 End: 10-19-2023 Tobacco use panel [facility] [employer] [facility] How hard is it for y ou to pay for the very basics like food, housing, medical care, and heating Somewhat hard [facility] [employer] In the past 12 month s, has lack of transportation kept you from medical appointments or from getting medications? No [employer] [facility] Start: 1990 Sex Assigned At Female P [facility] Start: 05-12-2023 Gender identity Identifies as female gender (finding) [facility] Start: 05-12-2023 Sexual orientation [facility] not to disclose [facility] Start: 10-19-2023 Alcohol intake Ex-drinker (finding) [facility] NEGATED: Highlighted rowStart: WENDY History of tobacco use Passive smoker [facility] Medical Equipment Procedure Code Equipment Code Equipment Origin al Text Equipment Identifier Dates Use to inject Vi t B 12 intramuscular [id number] Start: 05-31-2023 Use to inject Vi t B 12 intramuscular [id number] Start: 09-21-2022 End: 05-31-2023 Progress note 10-19-2023 Note Date & Type Note Facility 10-19-2023 Note HNO ID: [id number] Author: WILL DUPREE, DO Service: ? Author Type: Physician Type: Progress Notes Filed: 10/19/2023 11:02 Note Text: Telemedicine Visit - Distance Health Virtual Visit Note Patient seen on [employer] Video Visit platform. Location of patient: [place] PCP: No primary care provider on file. History of Present Illness Joesph Neff is a 33 year old female who presents for a referral request. - Says her PCP was concerned for EDS and needs an internal referral to a strategic planning consultant to be evaluated - Suspect EDS for [...] visit. Either the patient or their legal litigation claim representative has been informed of the risks [...] October 19, 2023 10:27 AM. Physician Attestation: IWill DO, personally performed the services described in this documentation. All medical record entries made by the scribe were at my direction and in my presence. I have reviewed the chart and discharge instructions (if applicable) and agree that the record reflects my personal performance and is accurate and complete. Electronically Signed: Will Dupree DO. [facility] Progress note 10-19-2023 Note Date & Type Note Facility 10-19-2023 Note HNO ID: [id number] Author: SHITAL ROY RN Service: ? Author Type: Registered Nurse Type: Progress Notes Filed: 10/19/2023 11:02 Note Text: Items addressed in this encounter: Other VV pre check, name and location verified, aware of tele health visit with A Delvis Torres RN October 19, 2023 8:51 AM 8:51 AM [facility] History of Present illness Narrative 10-19-2023 Will Dupree DO - 10/19/2023 10:27 AM Shital Valdovinos RN - 10/19/2023 8:51 AM EDT Note Date & Type Note Facility 10-19-2023 History of Presen t illness Narrative Telemedicine Visit - Distance Health Virtual Visit Note Patient seen on [employer] Video Visit platform. Location of patient: [place] PCP: No primary care provider on file. History of Present Illness Joesph Neff is a 33 year old female who presents for a referral request. - Says her PCP was concerned for EDS and needs an internal referral to a strategic planning consultant to be evaluated - Suspect EDS for [...] visit. Either the patient or their legal litigation claim representative has been informed of the risks [...] AM 8:51 AM documented in this encounter [facility] History of Present illness Narrative 05-31-2023 Jarod Weeks MD - 05/31/2023 3:30 PM Ashely Weeks MD - 05/31/2023 3:30 PM EST Note Date & Type Note Facility 05-31-2023 History of Present illness Narrative Images from the original note were not included. [address] [address] Date of Service: 05/31/2023 Subjective: Joesph Neff [...] 08/23/2022 AMISHA IFA negative, complements normal, anti BODY BUILDER 1.7 AI, vitamin-D 11.9 ng/mL normal, urinalysis [...] or corrected. Thank you for your understanding. [facility] Dr. Jarod Weeks MD [address] [place] [address] [address] [place] [address] Office: [phone] Rheumatology Procedure Site: Bilateral trochanteric bursa and [...] the procedure documented in this encounter [facility] Evaluation note Note Date & Type Note Facility Evaluation note Diagnosis Greater trochanteric bursitis of both hips- Primary Fibromyalgia Unspecified myalgia and myositis Vitamin B 12 deficiency Other B-complex deficiencies Anserine bursitis documented in this encounter [facility] Evaluation note Note Date & Type Note Facility Evaluation note Diagnosis Hypermobility of joint- Primary Other joint derangement, not elsewhere classified, unspecified site documented in this encounter [facility] Instructions Note Date & Type Note Facility Instructions Not on filedocumented in this en counter [facility] Summary Purpose Family History No Family History [...] CONSULT TO MEDICAL GENETICS - GENERAL OFFICE/OUTPATIENT [facility] 60 MINUTES MEDICAL GENETICS COUNSELING EACH 30 MINUTES Will Dupree, [address] [place] [address] [address] Referral ID Status Reason Start Date Expiration Date Visits Requested Visits Authorized [id number] Pending Review PCP Requested Referral Auto-Generate d Referral 10/19/2023 10/18/2024 1 1 Additional Source Comments INFORMATION SOURCE (unrecogn ized section and content) DATE CREATED AUTHOR 04/12/2018 [facility] DATE CREATED AUTHOR AUTHOR'S ORGANIZ ATION 11/26/2021 [facility] DATE CREATED AUTHOR AUTHOR'S ORGANIZ ATION 06/03/2023 [facility] DATE CREATED AUTHOR AUTHOR'S ORGANIZ ATION 10/21/2023 [facility] DATE CREATED AUTHOR AUTHOR'S ORGANIZ ATION 01/15/2024 [facility] DATE CREATED AUTHOR AUTHOR'S ORGANIZ ATION 01/27/2024 [facility] DATE CREATED AUTHOR AUTHOR'S ORGANIZ ATION 02/14/2024 [facility] dical Specialists [facility] Care Teams (unrecognized sec tion and content) Rehab Specialist Relationship Specialty Start Date End Date Bia Maciel MD [address] [place] [address] PCP - General Family Medicine 09/21/22 Source Comments (unrecognize d section and content) In the event this informatio n is protected by the Federal Confidentiality of Alcohol and Drug Abuse Patient Records regulations: The Federal rules restrict any use of the information to criminally investigate or prosecute any alcohol or drug abuse patient.[facility] Reason for Visit (unrecogniz ed section and content) Reason Comments Referral Request Reconciliation Accountant FOR RECORDS PERTAINING TO PATIENTS WHO ARE [...] BE BASED ON THE PRIMARY CLINICAL RECORDS. [employer] [facility]. provides no warranty or guarantee of the accuracy or completeness of information in this document.
--- NOTE | 2024-02-21 15:30 | US_ITS ---
The [address] [address] Patient Name: AISHWARYA NEFF MRN: [id number] date: 1990 Sex: F Assigned Patient Location: ER Current Patient Location: ER Accession/Order Number: [id number] Exam Date: 02/21/2024 16:06 Report Date: 02/21/2024 17:19 At the request of: RONAK HERRERA Procedure: US venous doppler LE LT Left LOWER EXTREMITY DUPLEX VENOUS SONOGRAPHY, 02/21/2024 4:06 PM EDT: COMPARISON: No prior comparison. CLINICAL HISTORY: DVT. Left leg swelling and pain for 2 days. TECHNIQUE: Venous duplex examination performed using grayscale, color flow and spectral analysis. FINDINGS: The left common femoral, femoral, popliteal, posterior tibial, anterior tibial, and peroneal veins are free of any deep venous thrombosis. The visualized left greater saphenous vein is also free of any superficial thrombosis. US/US venous doppler LE LT IMPRESSION: There is no evidence of deep venous thrombosis in the left lower extremity identified as described above. Electronically authenticated by: Almaz GARDNER Date: 02/21/2024 17:19
--- NOTE | 2024-02-21 15:30 | ECG_ITS ---
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
--- NOTE | 2024-02-21 15:31 | ED.SOB1 ---
HPI - SOB/Dyspnea General Chief Complaint: Shortness of Breath/Dyspnea Stated Complaint: Shortness of Breath Time Seen by Provider: 02/21/24 15:19 Source: patient Mode of arrival: walk-in History of Present Illness HPI Narrative: Patient is a 33-year-old female who presents to the emergency department for shortness of breath for the last 3 days associated with left leg swelling. She states her PCP office sent her to the emergency department because they were concerned she may have a blood clot as she has a large uterine fibroid and she was passing blood clots for the last month, per PCP office apparently told her that she may have a blood clot from her uterus. She has no personal history of blood clots but does have a family history of blood clot. She does not take any hormones. She has not noticed any redness or drainage from the left leg. No fevers or upper respiratory symptoms. No medications taken prior to arrival. Related Data Home Medications ?Medication ?Instructions ?Recorded ?Confirmed dextroamphetamine-amphetamine 30 30 mg PO DAILY 02/25/23 02/21/24 mg tablet (Adderall) pregabalin 165 mg tablet, extended 165 mg PO DAILY 02/25/23 02/21/24 release 24 hr (Lyrica CR) methocarbamol 750 mg tablet 750 mg PO DAILY 11/30/23 02/21/24 Previous Rx's ?Medication ?Instructions ?Recorded albuterol sulfate 90 mcg/actuation 2 inh inhalation Q4H PRN shortness 02/21/24 aerosol inhaler of breath or wheezing #8.5 grams Allergies Allergy/AdvReac Type Severity Reaction Status Date / Time gabapentin Allergy Unknown Unknown Verified 01/16/24 10:35 oxycodone [From Percocet] AdvReac Unknown Unknown Verified 01/16/24 10:35 Review of Systems ROS Constitutional Denies: fever or chills Ears, nose, mouth, and throat Denies: throat pain or nasal congestion Cardiovascular Denies: chest pain Respiratory Reports: shortness of breath; Denies: cough or wheezing Gastrointestinal Denies: abdominal pain, nausea or vomiting Musculoskeletal Denies: back pain or neck pain Neurological Denies: headache, numbness in extremities or weakness in extremities Hematologic/Lymphatic Denies: easy bruising or easy bleeding [facility] Medical History (Updated 02/21/24 @ 18:05 by TODD Figueroa) Cholecystectomy planned Carpal tunnel syndrome ?G56.00 - Carpal tunnel syndrome, unspecified upper limb (ICD-10) Surgical History History of tonsillectomy and adenoidectomy ?Z90.89 - Acquired absence of other organs (ICD-10) Status post panniculectomy ?Z98.890 - Other specified postprocedural states (ICD-10) History of tubal ligation ?Z98.51 - Tubal ligation status (ICD-10) History of gastric bypass ?Z98.84 - Bariatric surgery status (ICD-10) Social History Little interest or pleasure in doing things: not at all Feeling down, depressed, or hopeless: not at all Exam Narrative Exam Narrative: Gen.: Awake, alert, in no distress Head: Normocephalic, atraumatic ENT: Moist mucous membranes Respiratory: No respiratory distress, lungs clear bilaterally patient breathing and speaking easily; with no wheezing or rhonchi Cardio: Regular rate and rhythm Gastrointestinal: Abdomen is soft, nondistended and nontender to palpation Extremities: Moves extremities equally, no noted swelling to the left lower extremity, calves are soft and nontender Psych: Normal mood and affect Neuro: No focal neuro deficit Skin: Warm, dry, intact Constitutional Vital Signs, click to edit/add: Last Vital Signs Temp 98.2 F 02/21/24 15:19 Pulse 73 02/21/24 17:16 Resp 22 H 02/21/24 17:16 BP 130/78 02/21/24 17:16 Pulse Ox 96 02/21/24 17:16 O2 Del Method Room Air 02/21/24 16:48 Course Vital Signs Vital signs: Vital Signs Temperature 98.2 F 02/21/24 15:19 Pulse Rate 73 02/21/24 15:19 Respiratory Rate 18 02/21/24 15:19 Blood Pressure 130/86 02/21/24 15:19 Pulse Oximetry 99 02/21/24 15:19 Temperature 98.2 F 02/21/24 15:19 Pulse Rate 73 02/21/24 17:16 Respiratory Rate 22 H 02/21/24 17:16 Blood Pressure 130/78 02/21/24 17:16 Pulse Oximetry 96 02/21/24 17:16 Oxygen Delivery Method Room Air 02/21/24 16:48 MDM - SOB/Dyspnea MDM Narrative Medical decision making narrative: Ultrasound of the left lower extremity with no evidence of DVT, CT angio with mild air trapping, no other acute process noted. Laboratory studies reviewed and noted within normal limits. No EKG changes noted. Patient will be treated for the air-trapping with albuterol inhaler for home. Follow-up with Dr. Maciel's office and return to the ER if symptoms change or worsen. After CT, patient states that she has had reactions before to IV dye where the IV dye makes her chest burn and makes her shaky . She was given IV Benadryl, Solu-Medrol and Pepcid. On reevaluation prior to discharge she is resting comfortably and in no distress. SUPERVISED APC VISIT, PHYSICIAN ATTESTATION: Based on the medical record the care appears appropriate. ? Medical Records Attestation: I reviewed the patient's medical records. Lab Data Attestation: I reviewed the patient's lab results. Labs: Lab Results 02/21/24 Range/Units 15:50 WBC 10.4 (4.0-11.0) 10^3/uL RBC 4.03 L (4.20-5.40) 10^6/uL Hgb 12.9 (12.0-16.0) g/dL Hct 38.6 (36.0-48.0) % MCV 95.8 (81.0-99.0) fL MCH 32.0 (26.7-34.0) pg MCHC 33.4 (29.9-35.2) g/dL RDW 12.2 (11.0-15.0) % Plt Count 397 (150-450) 10^3/uL MPV 8.8 L (9.5-13.5) fL Neut % (Auto) 64.0 (43.0-75.0) % Lymph % (Auto) 23.7 (20.5-60.0) % [place] % (Auto) 9.0 (1.7-12.0) % Eos % (Auto) 2.3 (0.9-7.0) % Baso % (Auto) 0.7 (0.2-2.0) % Neut # (Auto) 6.6 H (1.4-6.5) 10^3/uL Lymph # (Auto) 2.5 (1.2-3.8) 10^3/uL [place] # (Auto) 0.9 H (0.3-0.8) 10^3/uL Eos # (Auto) 0.2 (0.0-0.7) 10^3/uL Baso # (Auto) 0.1 (0.0-0.1) 10^3/uL Abs Immat Gran (auto) 0.03 (0.00-0.03) 10^3/uL Imm/Tot Granulo (auto) 0.3 (0.0-0.5) % PT 10.3 (9.0-11.6) sec INR 0.97 APTT 28.8 (22.3-36.2) sec VBG pH 7.387 (7.330-7.430) VBG pCO2 42.1 (40.0-52.0) mmHg Sodium 136 (136-145) mmol/L Potassium 3.9 (3.5-5.1) mmol/L Chloride 104 (98-107) mmol/L Carbon Dioxide 26.1 (21.0-32.0) mmol/L Anion Gap 9.8 BUN 9.0 (7.0-18.0) mg/dL Creatinine 0.55 (0.55-1.02) mg/dL Est GFR ( Amer) >60 (>=60) Est GFR (Non-Af Amer) >60 (>=60) BUN/Creatinine Ratio 16.4 Glucose 94 (74-106) mg/dL Calcium 8.2 L (8.5-10.1) mg/dL Total Bilirubin 0.2 (0.2-1.0) mg/dL AST 20 (15-37) U/L ALT 32 (14-59) U/L Alkaline Phosphatase 79 (46-116) U/L Troponin I High Sens 5.6 (4.0-51.3) pg/mL NT-Pro-B Natriuret Pep 58.0 (<=450.0) pg/mL Total Protein 6.9 (6.4-8.2) g/dL Albumin 3.5 (3.4-5.0) g/dL Globulin 3.4 g/dL Albumin/Globulin Ratio 1.0 Serum HCG, Qual Negative (NEGATIVE) Imaging Data CT scan - chest: Attestation: I have reviewed the pertinent imaging results. Radiologist's impression: ITS Impressions Venous Doppler Study 02/21/24 15:30 IMPRESSION: There is no evidence of deep venous thrombosis in the left lower extremity identified as described above. Electronically authenticated by: Almaz GARDNER Date: 02/21/2024 17:19 Chest CTA 02/21/24 17:10 IMPRESSION: 1. No pulmonary embolism. 2. Probable mild air trapping in the right lung. 3. Otherwise, no other acute abnormalities in the chest. Electronically authenticated by: HARVEY BRADSHAW Date: 02/21/2024 17:53 ECG Data Attestation: I personally reviewed and interpreted this ECG as follows: (Normal sinus rhythm at a rate of 62, no acute ST elevation or ectopy. EKG reviewed by attending physician) Discharge Plan Discharge Chief Complaint: Shortness of Breath/Dyspnea Clinical Impression: Shortness of breath Patient Disposition: Home, Self-Care Time of Disposition Decision: 18:05 Condition: Good Prescriptions / Home Meds: New albuterol sulfate 90 mcg/actuation HFA aerosol inhaler 2 inh inhalation Q4H PRN (Reason: shortness of breath or wheezing) Qty: 8.5 0RF No Action pregabalin [Lyrica CR] 165 mg tablet extended release 24 hr 165 mg PO DAILY Rx Instructions: must administer with a meal/food dextroamphetamine-amphetamine [Adderall] 30 mg tablet 30 mg PO DAILY methocarbamol 750 mg tablet 750 mg PO DAILY Print Language: Tajik Instructions: Shortness of Breath (ED) Referrals: Sunny Maciel MD [Primary Care Provider] - 1 week
[2024-02-21 15:57] LABS: Basophils Absolute Auto 0.1 10^3/uL (0.0-0.1); Basophils Percent Auto 0.7 % (0.2-2.0); Eosinophils Absolute Auto 0.2 10^3/uL (0.0-0.7); Eosinophils Percent Auto 2.3 % (0.9-7.0); Hematocrit 38.6 % (36.0-48.0); Hemoglobin 12.9 g/dL (12.0-16.0); Immature Granulocytes Abs Auto 0.03 10^3/uL (0.00-0.03); Immature Granulocytes Pct Auto 0.3 % (0.0-0.5); Lymphocytes Absolute Auto 2.5 10^3/uL (1.2-3.8); Lymphocytes Percent Auto 23.7 % (20.5-60.0); Mean Corpuscular HGB Conc 33.4 g/dL (29.9-35.2); Mean Corpuscular Volume 95.8 fL (81.0-99.0); Mean Platelet Volume 8.8 fL (9.5-13.5); Monocytes Absolute Auto 0.9 10^3/uL (0.3-0.8); Neutrophils Absolute Auto 6.6 10^3/uL (1.4-6.5); Platelet Count 397 10^3/uL (150-450); Red Blood Count 4.03 10^6/uL (4.20-5.40); Red Cell Distribution Width 12.2 % (11.0-15.0); White Blood Count 10.4 10^3/uL (4.0-11.0)
[2024-02-21 15:58] LABS: PCO2 VBG 42.1 mmHg (40.0-52.0); pH VBG 7.387 (7.330-7.430)
[2024-02-21 16:11] LABS: HCG Qualitative NEGATIVE (NEGATIVE); Internal Control Within Normal Limits
[2024-02-21 16:14] LABS: INR 0.97; Partial Thromboplastin Time 28.8 sec (22.3-36.2); Prothrombin Time 10.3 sec (9.0-11.6)
[2024-02-21 16:17] LABS: Alanine Aminotransferase 32 U/L (14-59); Albumin Level 3.5 g/dL (3.4-5.0); Alkaline Phosphatase 79 U/L (46-116); Anion Gap 9.8; Aspartate Amino Transferase 20 U/L (15-37); BUN Creatinine Ratio 16.4; Bilirubin Total 0.2 mg/dL (0.2-1.0); Calcium 8.2 mg/dL (8.5-10.1); Carbon Dioxide 26.1 mmol/L (21.0-32.0); Chloride 104 mmol/L (98-107); Estimated GFR (African America >60 (>=60); Estimated GFR (Non-African Ame >60 (>=60); Globulin 3.4 g/dL; Glucose 94 mg/dL (74-106); Potassium 3.9 mmol/L (3.5-5.1); Sodium 136 mmol/L (136-145); Total Protein 6.9 g/dL (6.4-8.2)
[2024-02-21 16:25] LABS: Troponin I High Sensitivity 5.6 pg/mL (4.0-51.3)
[2024-02-21 16:47] VITALS: BP 129/71; PULSE 72; O2SAT 95
[2024-02-21 16:48] VITALS: O2SAT 96
--- NOTE | 2024-02-21 17:10 | CT_ITS ---
The [address] [address] Patient Name: AISHWARYA NEFF MRN: [id number] date: 1990 Sex: F Assigned Patient Location: ER Current Patient Location: ER Accession/Order Number: [id number] Exam Date: 02/21/2024 17:02 Report Date: 02/21/2024 17:53 At the request of: RONAK HERRERA Procedure: CT angio chest EXAM: CT pulmonary angiogram of the chest using 100 mL of IV iodinated contrast. 3-D imaging was performed. Dose reduction technique used: Automated exposure control and/or adjustment of the mA and/or kV according to patient size and/or use of iterative reconstruction technique. REASON FOR EXAM: Pulmonary embolism COMPARISON: None FINDINGS: No pulmonary emboli. No aortic dissection. No pneumothorax. No acute airspace opacities. No pleural effusion. No acute fractures. No concerning pulmonary nodules. No definite lymphadenopathy in the chest. Mild mosaic attenuation pattern, more evident in the right mid and lower lung. Borderline cardiomegaly. Gastric bypass. Remainder unremarkable. CT/CT angio chest IMPRESSION: 1. No pulmonary embolism. 2. Probable mild air trapping in the right lung. 3. Otherwise, no other acute abnormalities in the chest. Electronically authenticated by: HARVEY BRADSHAW Date: 02/21/2024 17:53
[2024-02-21 17:16] VITALS: BP 130/78; PULSE 73; O2SAT 96
[2024-02-21] MEDS: METHYLPREDNISOLONE SOD SUCC PF 125 MG/2 ML VIAL IVP (17:20)
[2024-02-21] MEDS: FAMOTIDINE/PF 20 MG/2 ML VIAL IV (17:22)
[2024-02-21] MEDS: DIPHENHYDRAMINE HCL 50 MG/ML VIAL 25 MG IV (17:23)
== END 2024-02-21 18:18 | disposition home or self-care (01) ==
PROVIDERS: Physician Assistant; Emergency Provider Emergency Medicine; PCP Family Medicine
DX: R06.02 Shortness of breath (principal)
CPT/HCPCS: 36415; 71275; 80053; 82800; 83880; 84484; 84703; 85025; 85610; 85730; 93005; 93971; 96374; 96375; 99285; J1200; J2919; Q9967

== ENCOUNTER 2024-12-20 19:57 | Emergency (ER) | payer OTHER, SELFPAY ==
[2024-12-20 20:01] VITALS: BP 171/89; PULSE 84; TEMP 36.8; O2SAT 98; BMI 39.0
--- NOTE | 2024-12-20 20:04 | XR_ITS ---
The [address] [address] Patient Name: AISHWARYA NEFF MRN: [id number] date: 1990 Sex: F Assigned Patient Location: ED.MAIN Current Patient Location: ER Accession/Order Number: [id number] Exam Date: 12/20/2024 20:25 Report Date: 12/20/2024 20:29 At the request of: SAM MUHAMMAD MD Procedure: XR foot RT min 3V 2 views right ankle plain film COMPARISON: None HISTORY: Right foot injury ACUTE FINDINGS: None DEGENERATIVE CHANGE: Unremarkable SOFT TISSUE FINDINGS: Unremarkable JOINT EFFUSION: None POSTOP CHANGES: None BONE MINERALIZATION: Adequate XR/XR foot RT min 3V IMPRESSION: No acute findings. 3 views right foot and Adequate alignment. No acute displaced fracture. Unremarkable soft tissues. IMPRESSION: No acute displaced fracture Impression dictated by: Neal Montes M.D. 12/20/2024 8:29 PM Dictation Location: [place] [address] Electronically authenticated by: [id number] Y Date: 12/20/2024 20:29
--- NOTE | 2024-12-20 20:13 | XR_ITS ---
[address] [address] Patient Name: AISHWARYA NEFF MRN: [id number] date: 1990 Sex: F Assigned Patient Location: ER Current Patient Location: ER Accession/Order Number: [id number] Exam Date: 12/20/2024 20:25 Report Date: 12/20/2024 20:29 At the request of: SAM MUHAMMAD MD Procedure: XR foot RT min 3V 2 views right ankle plain film COMPARISON: None HISTORY: Right foot injury ACUTE FINDINGS: None DEGENERATIVE CHANGE: Unremarkable SOFT TISSUE FINDINGS: Unremarkable JOINT EFFUSION: None POSTOP CHANGES: None BONE MINERALIZATION: Adequate XR/XR ankle RT 2V IMPRESSION: No acute findings. 3 views right foot and Adequate alignment. No acute displaced fracture. Unremarkable soft tissues. IMPRESSION: No acute displaced fracture Impression dictated by: Neal Montes M.D. 12/20/2024 8:29 PM Dictation Location: [place] [address] Electronically authenticated by: [id number] Y Date: 12/20/2024 20:29
--- OUTSIDE RECORDS SUMMARY | 2024-12-20 20:13 | XMS_ITS | CCD ---
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 Name Role Phone FRANCIS SILVA Unavailable Unavailable [...] Care Unavailable GABRIELLEY, DR AMEZQUITA Consulting Unavailable OSEI, DR AMEZQUITA Primary Care Unavailable MICHELLE WHITNEY Admitting Unavailable MICHELLE WHITNEY Attending Unavailable AUDREY ROWE Consulting Unavailable MICHELLE WHITNEY Consulting Unavailable OSEI, DR AMEZQUITA Primary Care Unavailable PAY, DR ODOM Admitting Unavailable PAY, DR ODOM Attending Unavailable TODD HERRERA Consulting Unavailable OSEI, DR AMEZQUITA Admitting Unavailable HOY, DR AMEZQUITA Attending Unavailable HOY, DR AMEZQUITA Primary Care Unavailable GABRIELLEY, DR AMEZQUITA Consulting Unavailable LAMBERT, DR SANDRA Ahmadi Consulting Unavailable CHINA, DR [...] Unavailable ZIEBER, DR ALISON Rico Consulting Unavailable JAROD WEEKS Attending Unavailable BIA FRANZ Referring Unavailable BIA FRANZ Primary Care Unavailable Unavailable Primary Care Provider Unavailsharad York MD, Jefferson Hairston Attending Unavailable Jaylen JC, Jefferson Hairston Attending Unavailable Jaylen JC, Jefferson Hairston Attending Unavailable Bia Franz MD Primary Care Provider [phone] MD Bia Franz Primary Care Provider [phone] MD Gagandeep Kumar Attending Provider [phone] WEEKS, JAROD Attending Unavailable HOY, BIA M Referring Unavailable HOY, BIA M Primary Care Unavailable WEEKS, JAROD Referring Unavailable HOY, BIA M Primary Care Unavailable HOY, BIA M Referring Unavailable HOY, BIA M Primary Care Unavailable EMCH, YADIRA OVIDIO Referring Unavailabl e HOY, BIA M Primary Care Unavailable EMCH, YADIRA OVIDIO Referring Unavailabl e HOY, BIA M Primary Care Unavailable EMCH, YADIRA OVIDIO Referring Unavailabl e HOY, BIA M Primary Care Unavailable EM[facility], YADIRA OVIDIO Referring Unavailabl e HOY, BIA M Primary Care Unavailable [facility], YADIRA OVIDIO Referring Unavailabl e HOY, BIA M Primary Care Unavailable EM[facility], YADIRA OVIDIO Referring Unavailabl e HOY, BIA M Primary Care Unavailable WEEKS, JAROD Attending Unavailable HOY, BIA M Referring Unavailable HOY, BIA M Primary Care Unavailable Gagandeep Kumar Attending Unavailable Gagandeep Kumar Admitting Unavailable Hoy, Bia M Primary Care Unavailable Gagandeep Kumar Admitting Unavailable Gagandeep Kumar Attending Unavailable Hoy, Bia M Primary Care Unavailable Bia Franz MD Primary Care Provider [id number] Bia Franz MD Primary Care Provider [phone] WILL DUPREE Referring Unavailable JASBIR MEHTA Attending Unavailable WILL DUPREE Referring Unavailable GLORIA READ Attending Unavailable Bia Franz MD Primary Care Provider [phone] GAGANDEEP KUMAR Referring Unavailable GAGANDEEP KUMAR Referring Unavailable GAGANDEEP KUMAR Attending Unavailable GAGANDEEP KUMAR Attending Unavailable GAGANDEEP KUMAR Attending Unavailable GAGANDEEP KUMAR Attending Unavailable GAGANDEEP KUMAR Attending Unavailable GAGANDEEP KUMAR Referring Unavailable Allergies Allergy Classification Reported Allergen(s) Allergy Type Date of Onset Reaction(s) Facility (20 sources) acetaminophen / oxyCODONE; Translations: [OXYCODONE-ACETAMIN OPHEN] Drug Allergy 3 Hives, GI intolerance, Itching, Rash [facility] Other [facility] (1 source) Acetaminophen / oxyCODONE Drug Allergy 5 [facility] Repository (12 sources) oxyCODONE; Translations: [OXYCODONE HCL] Drug Allergy 2 Itching, GI Disturbance [facility] (19 sources) gabapentin Drug Allergy 3 Anxiety, Other [facility] (19 sources) oxyCODONE Drug Allergy 2 GI intolerance, Itching [facility] (9 sources) Acetaminophen; Translations: [acetaminophen] Drug Allergy 4 Other [facility] (6 sources) polyethylene glycol 300 Drug Allergy 4 Other [facility] (6 sources) Prednisone & Diphenhydramine Drug Allergy 4 Unknown [facility] Healthcare (1 source) gabapentin Drug Allergy 4 [facility] Repository (1 source) oxyCODONE Drug Allergy 4 [facility] Repository Medications Current Medications Medication Drug Class(es) Dates Sig (Normalized) Sig (Original) Albuterol (12 sources) beta2-Adrenergic Agonist Start: 03-01-2024 take 90 ug by inhalation every four to six hours Albuterol Active 90 MCG INHALATION EVERY 4-6 HOURS March 01, 2024 12:00am Start: 02-22-2024 take 2 puff(s) by mo uth every four hours as needed for wheezing albuterol HFA 90 mcg/act inhaler INHALE 2 PUFFS BY MOUTH EVERY 4 HOURS NEEDED FOR WHEEZING or SHORTNESS OF BREATH 02/22/2024 Active amphetamine aspartate 7.5 mg / amphetamine sulfate 7.5 mg / dextroamphetamine saccharate 7.5 mg / dextroamphetamine sulfate 7.5 mg oral tablet (20 sources) Central Nervous System Stimulant Start: 08-19-2022 take 1 tablet by mouth once Amphetamine-Dextroamphetamine (ADDERALL) 30 mg tablet Take 1 tablet by mouth every afternoon. 10/03/2023 Active Start: 10-13-2017 End: 03-01-2024 take 20 mg by mouth once daily Dextroamphetamine-Amphetamine Discontinu ed 20 MG PO Daily October 13, 2017 12:00am March 01, 2024 10:29am cetirizine hydrochloride 10 mg oral tablet (10 sources) Histamine-1 Receptor Antagonist Start: 11-02-2022 take 1 tablet by mouth in the morning cetirizine (ZyrTEC) 10 mg tablet Indications: Allergic rhinitis due to animal dander Take 1 tablet (10 mg total) by mouth in the morning. 90 tablet 3 11/02/2022 Active [id number] 0.3 ml EPINEPHrine 1 mg/ml auto-injector (10 sources) alpha-Adrenergic Agonist, beta-Adrenergic Agonist, Catecholamine Start: 11-02-2022 EPINEPHrine (EPIPEN) 0.3 mg/0.3 mL auto-injector Indications: Adverse reaction to food, initial encounter Inject 0.3 mL (0.3 mg total) into the appropriate muscle as needed (anaphylaxis). 2 each 1 11/02/2022 Active ergocalciferol 1.25 mg oral capsule (10 sources) Provitamin D2 Compound Start: 08-31-2022 ergocalciferol (VITAMIN D2) 1,250 mcg (50,000 unit) capsule Indications: Vitamin D deficiency Capsule weekly for 8 weeks then once monthly 12 capsule 08/31/2022 Active 84 hr estradiol 0.25161 mg/hr transdermal system (6 sources) Estrogen Start: 03-29-2024 End: 03-29-2025 estradiol (Vivelle-DOT) 0.1 MG/24HR Indications: Menopausal symptoms Place 1 patch over 96 hours on the skin 2 (two) times a week 24 patch 3 03/29/2024 03/29/2025 Active FLUoxetine 10 mg oral capsule (7 sources) Serotonin Reuptake Inhibitor Start: 03-08-2024 take 2 capsules by mouth in the morning FLUoxetine (PROzac) 10 MG capsule Take 20 mg by mouth in the morning. 03/08/2024 Active fluticasone propionate 0.05 mg/actuat metered dose nasal spray (16 sources) Corticosteroid Start: 11-02-2022 take 2 spray(s) nasal route in the morning fluticasone propionate (FLONASE) 50 mcg/actuation nasal spray Indications: Allergic rhinitis due to animal dander Administer 2 sprays into each nostril in the morning. 16 mL 12 11/02/2022 Active fluticasone (Shawn nase Allergy Relief) 50 MCG/ACT nasal spray 1 (one) time each day at the same time Active HYDROmorphone hydrochloride 2 mg oral tablet (1 source) Opioid Agonist Start: 03-15-2024 take 1 tablet by mouth every six hours Hydromorphone (Dilaudid) 2 mg tablet Active 2 MG PO Every 6 hours 26 12March 15, 2024 Start: 03-15-2024 take 1 tablet by kelly th every six hours Hydromorphone (Dilaudid) 2 mg tablet Active 2 MG PO Every 6 hours 26 12March 15, 2024 methocarbamol 750 mg oral tablet (20 sources) Muscle Relaxant Start: 03-08-2024 take 1 tablet by mouth once daily at bedtime methocarbamoL (ROBAXIN) 750 mg tablet Indications: Fibromyalgia Take 1 tablet (750 mg total) by mouth once daily at bedtime. 90 tablet 1 03/08/2024 Active Start: 09-08-2023 End: 03-08-2024 take 1 tablet by mouth once daily at bedtime methocarbamol (ROBAXIN) 750 mg tablet Take 750 mg by mouth daily at bedtime. 09/08/2023 Active Start: 11-16-2022 End: 09-08-2023 take 1 tablet by mouth once daily at bedtime methocarbamoL (ROBAXIN) 500 mg tablet Indications: Fibromyalgia Take 1 tablet (500 mg total) by mouth once daily at bedtime. 90 tablet 1 05/31/2023 09/08/2023 Discontinued (Reorder) milnacipran hydrochloride 50 mg oral tablet (18 sources) Serotonin and Norepinephrine Reuptake Inhibitor Start: 09-08-2023 End: 03-08-2024 milnacipran (SAVELLA) 50 mg tablet Indications: Fibromyalgia One tablet twice daily 60 tablet 5 09/08/2023 03/08/2024 Discontinued Start: 09-08-2023 End: 03-08-2024 milnacipran 12.5 mg (5)-25 m g(8)-50 mg(42) tablets,dose pack Indications: Fibromyalgia Use as prescribed 42 each 09/08/2023 03/08/2024 Discontinued Start: 09-08-2023 milnacipran 12 .5 mg (5)-25 mg(8)-50 mg(42) tablets,dose pack Indications: Fibromyalgia Use as prescribed 42 each 09/08/2023 Active montelukast 10 mg oral tablet (12 sources) Leukotriene Receptor Antagonist Start: 02-23-2024 take 1 tablet by mouth once daily montelukast (Singulair) 10 MG tablet Take 10 mg by mouth Daily 02/23/2024 Active Naltrexone (10 sources) Opioid Antagonist take 4 mg by mouth in the morning naltrexone HCl (NALTREXONE ORAL) Take 4 mg by mouth in the morning. Active take 4 mg by mouth in the mornin g naltrexone HCl (NALTREXONE ORAL) Take 4 mg by mouth in the morning. 0 Active pregabalin 100 mg oral capsu le (20 sources) Start: 03-08-2024 pregabalin (LY JORDAN) 100 mg capsule Indications: Fibromyalgia One capsule at 8 PM each night 90 capsule 1 03/08/2024 Active Start: 11-21-2023 take 1 capsule by mo uth at bedtime pregabalin (Lyrica) 50 MG capsule Take 50 mg by mouth at bedtime 11/21/2023 Active Start: 09-08-2023 End: 03-08-2024 take 1 capsule by mouth once daily in the evening pregabalin (LYRICA) 75 mg capsule TAKE 1 CAPSULE BY MOUTH ONCE DAILY at EIGHT IN THE EVENING 09/08/2023 Active Start: 05-31-2023 End: 09-08-2023 pregabalin (LYRICA) 50 mg ca psule Indications: Fibromyalgia One capsule at 8 PM each night 90 capsule 1 05/31/2023 09/08/2023 Discontinued (Reorder) Start: 11-16-2022 End: 05-31-2023 pregabalin (LYRICA) 25 mg ca psule Indications: Fibromyalgia One capsule at 8 PM each night 30 capsule 5 11/16/2022 05/31/2023 Discontinued (Reorder) triamcinolone acetonide 1 mg/ml topical cream (20 sources) Corticosteroid Start: 11-21-2023 triamcinolone (Kenalog) 0.1 % cream APPLY TO THE AFFECTED AREA(S) topically TWICE DAILY 11/21/2023 Active Start: 05-31-2023 End: 05-31-2023 triamcinolone acetonide (KAROL ALOG-40) injection 40 mg vitamin b12 1 mg sublingual tablet (14 sources) Vitamin B12 Start: 03-01-2024 take 1000 ug under the tongue once daily in the morning Cyanocobalamin (Vitamin B-12) Active 1000 MCG SUBLINGUAL Every morning March 01, 2024 12:00am Start: 01-31-2024 take 1 tablet by kelly th in the morning cyanocobalamin (vitamin B-12) 1000 MCG tablet Take 1 tablet (1,000 mcg total) by mouth in the morning. 90 tablet 2 01/31/2024 Active Start: 09-21-2022 End: 01-31-2024 cyanocobalamin (VITAMIN B-12 ) 1,000 mcg/mL injection Indications: Vitamin B 12 deficiency One 1000 mcg every other day for 10 days,then once weekly for 4 weeks then once monthly 3 mL 3 05/31/2023 01/31/2024 Discontinued Completed/Discontinued Medications Medication Drug Class(es) Dates Sig (Normalized) Sig (Original) iron sucrose (VENOFER) 200 mg in sodium chloride 0.9 % 100 mL IVPB (4 sources) Start: 09-28-2023 End: 09-28-2023 200 mg, intravenous, at 440 mL/hr, Administer over 15 Minutes, Once, On Tue09/28/23 at 1315, For 1 dose, Monitor patient for hypersensitivity reactions for at least 30 minute,s after the infusion. AVOID the use of H1 antihistamines, such as diphenhydramine, as this may worsen hypersensitivity reactions. Have resuscitation equipment and medications available. Monitor patient for hypersensitivity reactions for at least 30 minutes after the infusion. AVOID the use of H1 antihistamines, such as diphenhydramine, as this may worsen hypersensitivity reactions. Have resuscitation equipment and medications available. Start: 09-26-2023 End: 09-26-2023 200 mg, intravenous, at 440 mL/hr, Administer over 15 Minutes, Once, On Tue09/26/23 at 1415, For 1 dose, Monitor patient for hypersensitivity reactions for at least 30 minute,s after the infusion. AVOID the use of H1 antihistamines, such as diphenhydramine, as this may worsen hypersensitivity reactions. Have resuscitation equipment and medications available. Monitor patient for hypersensitivity reactions for at least 30 minutes after the infusion. AVOID the use of H1 antihistamines, such as diphenhydramine, as this may worsen hypersensitivity reactions. Have resuscitation equipment and medications available. Start: 09-23-2023 End: 09-23-2023 200 mg, intravenous, at 440 mL/hr, Administer over 15 Minutes, Once, On Tue09/23/23 at 1300, For 1 dose, Monitor patient for hypersensitivity reactions for at least 30 minute,s after the infusion. AVOID the use of H1 antihistamines, such as diphenhydramine, as this may worsen hypersensitivity reactions. Have resuscitation equipment and medications available. Monitor patient for hypersensitivity reactions for at least 30 minutes after the infusion. AVOID the use of H1 antihistamines, such as diphenhydramine, as this may worsen hypersensitivity reactions. Have resuscitation equipment and medications available. Start: 09-19-2023 End: 09-19-2023 200 mg, intravenous, at 440 mL/hr, Administer over 15 Minutes, Once, On Tue09/19/23 at 1300, For 1 dose, Monitor patient for hypersensitivity reactions for at least 30 minute,s after the infusion. AVOID the use of H1 antihistamines, such as diphenhydramine, as this may worsen hypersensitivity reactions. Have resuscitation equipment and medications available. Monitor patient for hypersensitivity reactions for at least 30 minutes after the infusion. AVOID the use of H1 antihistamines, such as diphenhydramine, as this may worsen hypersensitivity reactions. Have resuscitation equipment and medications available. Lidocaine (4 sources) Antiarrhythmic, Amide Local Anesthetic Start: 05-31-2023 End: 05-31-2023 lidocaine (XYLOCAINE) 10 mg/mL (1 %) injection 40 mg Start: 05-31-2023 End: 05-31-2023 lidocaine (XYLOCAINE) 10 mg/ mL (1 %) injection 40 mg naproxen 500 mg oral tablet (2 sources) Nonsteroidal Anti-inflammatory Drug Start: 10-13-2017 End: 03-01-2024 take 500 mg by mouth twice daily at mealtime Naproxen Discontinued 500 MG PO Twice daily October 13, 2017 12:00am March 01, 2024 10:31am administer with food or milk 1000 ml sodium chloride 9 mg/ml injection (3 sources) Start: 09-28-2023 End: 09-28-2023 take 25 mL intravenously every hour as needed 25 mL/hr, intravenous, Continuous PRN, When mainline IV needed., Starting on Tue09/28/23 at 1300, Match IVF to base solution of product being administered to ensure compatibility. Start: 09-26-2023 End: 09-26-2023 take 25 mL intravenously every hour as needed 25 mL/hr, intravenous, Continuous PRN, When mainline IV needed., Starting on Tue09/26/23 at 1411, Match IVF to base solution of product being administered to ensure compatibility. Start: 09-19-2023 End: 09-19-2023 take 25 mL intravenously every hour as needed 25 mL/hr, intravenous, Continuous PRN, When mainline IV needed., Starting on Tue09/19/23 at 1250, Match IVF to base solution of product being administered to ensure compatibility. Problems Active Problems Problem Classification Problem Date Documented Da te Episodic/Chronic Acquired foot deformities (4 sources) Talipes planus; Translations: [Flat foot [pes planus] (acquired), right foot] 10-08-2024 Episodic Attention-deficit, conduct, and disruptive behavior disorders (17 sources) Attention deficit hyperactivity disorder, combined type; Translations: [Attention-deficit hyperactivity disorder, combined type] Onset: 05-28-1999 01-19-2024 Chronic Benign neoplasm of uterus (5 sources) Subserous leiomyoma of uterus; Translations: [Subserosal leiomyoma of uterus] 02-28-2024 Episodic Calculus of urinary tract (2 sources) Calculus of kidney; Translations: [Recurrent kidney stone] Onset: 01-06-2021 10-08-2024 Episodic Cardiac dysrhythmias (1 source) Postural orthostatic tachycardia syndrome ; Translations: [POTS (postural orthostatic tachycardia syndrome)] 10-08-2024 Chronic Coagulation and hemorrhagic disorders (1 source) Easy bruising; Translations: [Spontaneous ecchymoses] 10-08-2024 Episodic Deficiency and other anemia (7 sources) Anemia due to chronic blood loss; Translations: [Iron deficiency anemia secondary to blood loss (chronic)] 02-28-2024 Chronic Deficiency and other anemia (1 source) Iron deficiency anemia secondary to blood loss (chronic); Translations: [Iron deficiency anemia secondary to blood loss (chronic)] Onset: 09-21-2022 Chronic Deficiency and other anemia (5 sources) Iron deficiency anemia due to blood loss; Translations: [Iron deficiency anemia secondary to blood loss (chronic)] 09-19-2023 Chronic Deficiency and other anemia (1 source) Anemia, unspecified; Translations: [ANEMIA UNSPECIFIED] Onset: 09-16-2021 Episodic Diabetes mellitus without complication (1 source) Other abnormal glucose; Translations: [OTHER ABNORMAL GLUCOSE] Onset: 09-16-2021 Episodic Disorders of teeth and jaw (1 source) Tooth loss; Translations: [Complete loss of teeth, unspecified cause, unspecified class] 10-08-2024 Chronic E Codes: Cut/pierceb (1 source) Contact with knife, initial encounter; Translations: [CONTACT WITH KNIFE INITIAL ENC] Onset: 11-25-2021 Episodic E Codes: Unspecified (1 source) Activity, cooking and baking; Translations: [ACTIVITY COOKING AND BAKING] Onset: 11-25-2021 Episodic Endometriosis (5 sources) Uterine adenomyosis; Translations: [Adenomyosis] 02-28-2024 Chronic Essential hypertension (1 source) Essential (primary) hypertension; Translations: [ESSENTIAL PRIMARY HYPERTENSION] Onset: 11-25-2021 Chronic Headache; including migraine (4 sources) Migraine, unspecified, not intractable, without status migrainosus; Translations: [MIGRAINE UNS NOT INTRACT W/O SM] Onset: 10-01-2021 Chronic Joint disorders and dislocations; trauma-related (4 sources) Unspecified internal derangement of right knee; Translations: [UNS INTERNAL DERANGEMENT RIGHT KNEE] Onset: 12-08-2020 Chronic Malaise and fatigue (3 sources) Weakness; Translations: [Other fatigue] Onset: 11-06-2021 10-08-2024 Episodic Menopausal disorders (2 sources) Menopausal symptom; Translations: [Menopausal and female climacteric states] 03-29-2024 Chronic Menstrual disorders (20 sources) Menometrorrhagia; Translations: [Excessive and frequent menstruation with irregular cycle] Onset: 10-07-2022 02-29-2024 Chronic Mood disorders (17 sources) Depressive disorder; Translations: [Depression] Onset: 06-28-2004 01-19-2024 Chronic Nonmalignant breast conditions (2 sources) Lump in upper outer quadrant of right breast; Translations: [Unspecified lump in the right breast, upper outer quadrant] 05-07-2024 Episodic Nonspecific chest pain (1 source) Other chest pain; Translations: [Other chest pain] Onset: 03-10-2018 Episodic Nutritional deficiencies (20 sources) Vitamin D deficiency, unspecified; Translations: [Vitamin D deficiency] Onset: 09-16-2021 01-19-2024 Chronic Open wounds of extremities (4 sources) Laceration without foreign body of left ring finger without damage to nail, initial encounter; Translations: [LAC NO FB LT RF NO DMG NAIL INITIAL] Onset: 11-23-2021 Episodic Other aftercare (1 source) Other termite technician (current) drug therapy; Translations: [OTH NURSING HOME CURRENT DRUG THERAPY] Onset: 11-25-2021 Episodic Other aftercare (2 sources) Surgical follow-up; Translations: [Encounter for follow-up examination after completed treatment for conditions other than malignant neoplasm] 03-29-2024 Episodic Other congenital anomalies (17 sources) Disorder of hip joint; Translations: [Other specified congenital deformities of hip] Onset: 1992 01-19-2024 Chronic Other connective tissue disease (3 sources) Hypermobility syndrome 10-08-2024 Episodic Other connective tissue disease (1 source) H/O: Disorder; Translations: [Personal history of other diseases of the musculoskeletal system and connective tissue] 10-08-2024 Episodic Other connective tissue disease (4 sources) H/O: musculoskeletal disease; Translations: [Personal history of other diseases of the musculoskeletal system and connective tissue] 10-08-2024 Episodic Other gastrointestinal disorders (4 sources) Intestinal malabsorption, unspecified; Translations: [INTESTINAL MALABSORPTION UNS] Onset: 03-10-2021 Chronic Other gastrointestinal disorders (1 source) Celiac disease; Translations: [CELIAC DISEASE] Onset: 03-17-2021 Chronic Other gastrointestinal disorders (1 source) History of clinical finding in subject; Translations: [Personal history of other diseases of the digestive system] 10-08-2024 Episodic Other injuries and conditions due to external causes (1 source) H/O: injury; Translations: [Personal history of other (healed) physical injury and trauma] 10-08-2024 Episodic Other nervous system disorders (4 sources) Anesthesia of skin; Translations: [ANESTHESIA OF SKIN] Onset: 11-03-2021 Episodic Other nervous system disorders (1 source) Unspecified disturbances of skin sensation; Translations: [UNS DISTURBANCES OF SKIN SENSATION] Onset: 10-02-2021 Episodic Other nervous system disorders (1 source) Acute postoperative pain; Translations: [Other acute postprocedural pain] 03-15-2024 Episodic Other nervous system disorders (1 source) Other acute postprocedural pain; Translations: [Other acute postprocedural pain] Onset: 03-15-2024 Episodic Other non-traumatic joint disorders (3 sources) Hypermobility syndrome; Translations: [Other specific joint derangements of unspecified joint, not elsewhere classified] 10-08-2024 Chronic Other non-traumatic joint disorders (1 source) Other specific joint derangements of unspecified joint, not elsewhere classified; Translations: [Generalized hypermobility of joints] Onset: 10-08-2024 Chronic Other non-traumatic joint disorders (1 source) Hypermobility of joint; Translations: [Joint derangement, unspecified] 10-19-2023 Episodic Other non-traumatic joint disorders (2 sources) Joint pain; Translations: [Pain in unspecified joint] 10-08-2024 Episodic Other non-traumatic joint disorders (1 source) Joint derangement, unspecified; Translations: [Hypermobility of joint] Onset: 10-08-2024 Episodic Other screening for suspected conditions (not mental disorders or infectious disease) (4 sources) Cancer cervix screening status; Translations: [Encounter for screening for malignant neoplasm of cervix] 02-29-2024 Episodic Residual codes; unclassified (1 source) Acquired absence of other specified parts of digestive tract; Translations: [ACQ ABSENCE OTH PART DIGESTV TRACT] Onset: 11-25-2021 Episodic Residual codes; unclassified (3 sources) BAP1 tumor predisposition syndrome; Translations: [Genetic susceptibility to malignant neoplasm of breast] 02-29-2024 Episodic Unclassified (1 source) Outpatient Infusion Onset: 09-19-2023 Past or Other Problems Problem Classification Problem Date Documented Da te Episodic/Chronic Abdominal pain (4 sources) Unspecified abdominal pain; Translations: [UNSPECIFIED ABDOMINAL PAIN] Onset: 01-02-2021 Episodic Allergic reactions (10 sources) Urticaria; Translations: [Urticaria, unspecified] Onset: 09-21-2022 09-21-2022 Episodic Contraceptive and procreative management (2 sources) Patient encounter status; Translations: [Encounter for other general counseling and advice on contraception] 01-12-2024 Episodic Deficiency and other anemia (5 sources) Iron deficiency anemia, unspecified; Translations: [IRON DEFICIENCY ANEMIA UNSPECIFIED] Onset: 02-10-2021 Episodic Deficiency and other anemia (20 sources) Iron deficiency anemia; Translations: [Iron deficiency anemia, unspecified] Onset: 09-21-2022 01-19-2024 Episodic Diseases of mouth; excluding dental (10 sources) Xerostomia; Translations: [Dry mouth, unspecified] Onset: 09-21-2022 09-21-2022 Episodic Immunizations and screening for infectious disease (14 sources) Encounter for immunization; Translations: [Patient encounter status] Onset: 11-25-2021 02-29-2024 Episodic Nausea and vomiting (1 source) Nausea with vomiting, unspecified; Translations: [NAUSEA WITH VOMITING UNSPECIFIED] Onset: 01-06-2021 Episodic Nutritional deficiencies (20 sources) Deficiency of other specified B group vitamins; Translations: [Cobalamin deficiency] Onset: 09-21-2022 01-19-2024 Episodic Other connective tissue disease (1 source) [...] knee, unspecified knee] Onset: 11-16-2022 Episodic Other connective tissue disease (20 sources) Fibromyalgia; Translations: [Fibromyalgia] Onset: 08-26-2022 01-19-2024 Episodic Other connective tissue disease (11 sources) Bursitis of knee; Translations: [Other bursitis of knee, unspecified knee] Onset: 11-16-2022 11-16-2022 Episodic Other connective tissue disease (11 sources) Trochanteric bursitis; Translations: [Trochanteric bursitis, right hip] Onset: 11-16-2022 11-16-2022 Episodic Other gastrointestinal disorders (1 source) Bariatric surgery status; Translations: [BARIATRIC SURGERY STATUS] Onset: 03-19-2021 Episodic Other skin disorders (17 sources) Hidradenitis suppurativa; Translations: [Hidradenitis suppurativa] Onset: 06-28-2005 01-19-2024 Episodic Other skin disorders (10 sources) Eruption; Translations: [Rash and other nonspecific skin eruption] Onset: 09-21-2022 09-21-2022 Episodic Results Test Name Value Interpretation Reference Range Facility BI MAMMOGRAM DIAGNOSTIC YVETTE SYNTHESIS BILATERALon 11-14-2024 BI MAMMOGRAM DIAGNOSTIC TOMOSYNTHESIS BILATERAL This is a summary report. The complete report is available in the patient's medical record. If you cannot access the medical record, please contact the sending organization for a detailed fax or copy. EXAMINATION: BI MAMMOGRAM DIAGNOSTIC TOMOSYNTHESIS BILATERAL CLINICAL HISTORY: Right breast pain and lump, left breast pain TECHNIQUE: Diagnostic digital mammogram study of both breasts was performed with 2D and 3D tomosynthesis imaging. Study was compared to the diagnostic mammogram study of the breasts dated 05/14/2024, right breast ultrasound study dated 05/14/2024 and bilateral breast ultrasound study dated 11/14/2024. FINDINGS: Standard views of the breasts were obtained as well as coned-down compression views and true lateral views. There is no evidence of interval dominant spiculated mass, grouped calcifications or skin thickening which would be suggestive of malignancy. Skin marker is noted on the right superomedially, posteriorly in the area of breast pain and lump, no obvious focal abnormality in this region. A few benign-appearing calcifications are seen on the left. Previously noted benign-appearing nodular density on the left posteriorly appears similar to the prior study, likely representing intramammary lymph node or other benign process. Axillary lymph nodes including partially visualized lymph nodes are noted bilaterally and appear grossly unremarkable. Bilateral breast ultrasound study performed on 11/14/2024 was grossly unremarkable. IMPRESSION: No specific evidence of malignancy seen in either breast. BIRADS 2 - Benign Findings DENSITY: There are scattered areas of fibroglandular density. FOLLOW-UP: Routine Screening Mammogram Board Certified Radiologists. Accredited by the ACR and FDA. MAMMOGRAPHY IS VERY IMPORTANT TO YOUR HEALTH. THE [place] [employer] GUIDELINES RECOMMEND THAT WOMEN 40 YEARS OF AGE AND OLDER SHOULD HAVE A MAMMOGRAM EVERY YEAR. A REMINDER LETTER WILL BE SENT AT THE APPROPRIATE TIME. ELECTRONICALLY SIGNED BY: Davis Anderson M.D. Normal Not Available BI US BREAST COMPLETE ADENIKE Graham 11-14-2024 BI US BREAST COMPLETE BILATERAL This is a summary report. The complete report is available in the patient's medical record. If you cannot access the medical record, please contact the sending organization for a detailed fax or copy. Examination: BI US BREAST COMPLETE BILATERAL Reason for Study: Right breast pain and lump, left breast pain Comparison: Diagnostic mammogram study of the breasts dated 05/14/2024, right breast ultrasound study dated 05/14/2024 and diagnostic mammogram study of the breasts dated 11/14/2024. Technique: Complete bilateral breast ultrasound study was performed to include all 4 quadrants, subareolar and axillary regions bilaterally. Findings: No obvious solid or cystic mass. No obvious solid vascular mass to suggest neoplasm. No obvious abnormal calcifications or vascularity. No obvious ductal dilatation. IMPRESSION: Impression: Bilateral breast ultrasound study is grossly unremarkable. No convincing evidence of neoplasm. BI-RADS 2 ELECTRONICALLY SIGNED BY: Davis Anderson M.D. Normal Not Available Nick 10-26-2024 [facility] Telephone ([facility]) JOESPH PINK ([id number]) 1990 F Date Time Provider Department 10/26/24 GLORIA READ [facility] During your visit today, we recorded the following information about you: Gloria Read [facility] 10/26/2024 9:50 AM Signed I called and spoke to Joesph. I explained that their testing for connective tissue disorders and ALPL came back as non-diagnostic. I explained that this means we did not find any known pathogenic or disease causing genetic changes, in the genes we tested her for. this result greatly reduces the chances of them having one of these conditions. We discussed that the reason I say it is greatly reduces it is because there may be limitations in our knowledge or technology that make it difficult for us to identify a genetic change in these genes and therefore, we can never completely rule it out. We did identify two variants of uncertain significance in COL3A1 and COL9A2. I reviewed that a variant of uncertain significance is when we identify a change in a gene, but do not have enough information to determine if it is disease causing or normal variation. Additional testing and research needs to be conducted before they are determined to be normal variation or disease-causing. I explained that most of the time these variants are normal variation and parental testing can help clarify this. She stated her mother would be interested in testing, but her father is unavailable. Discussed possibly having her brother evaluated since he has similar CTD features as she does. She will send me their information to facilitate variant testing for them. Lastly we discussed that individuals with vascular EDS typically have abnormal echos. Explained we would recommend an updated echo. She agreed with this plan and an order was placed for have an echo and meet with cardiology. Answered all questions to the best of my ability and encouraged her to reach out with any additional questions or concerns. Gloria Read M.S., C.G.C Licensed, Certified Genetic Counselor Allergies As of Date: 10/26/2024 Noted Allergy Reaction PERCOCET (OXYCODONE-ACETAMINOPHE N)10/19/2023 4 - Hives Date Reviewed: Never Reviewed Reason for Visit: Genetic Testing [facility]Ati-gnzhqyknat [Other] Primary Visit Diagnosis:History of subluxation of joint [Z87.39] Other Visit Diagnoses:Generalized hypermobility of joints [M24.80] Pes planus of both feet [M21.41, M21.42] Order(s):ECHO [726147] Order #: [id number]: 1 FUTURE CONSULT TO CARDIOLOGY [9004] Order #: [id number]: 1 FUTURE Prescriptions as of 10/26/2024 - Amphetamine-Dextroamphe tamine (ADDERALL) 30 mg tablet Take 1 tablet by mouth every afternoon. - methocarbamol (ROBAXIN) 750 mg tablet Take 750 mg by mouth daily at bedtime. - pregabalin (LYRICA) 75 mg capsule TAKE 1 CAPSULE BY MOUTH ONCE DAILY at EIGHT IN THE EVENING Problem List As Of Date: 10/26/2024 (None) Encounter Status:Closed by GLORIA READ on 10/26/24 [facility] CNOVon 10-08-2024 CNOV Office Visit ([facility]) JOESPH PINK ([id number]) 1990 F Date Time Provider Department 10/08/24 11:00 AM JASBIR MEHTA [facility] During your visit today, we recorded the following information about you: Jasbir Mehta DO 10/16/2024 10:35 AM Addendum MEDICAL GENETICS CLINIC INITIAL VISIT Patient: Joesph Pink Date of : 1990 Clinic #: [id number] Consultation requested by: Dr. Will Dupree Date of visit: 10/07/2024 Recording using [employer] software for draft documentation of the visit was discussed with the patient/authorized business office representative; all questions welcomed and answered. Patient/authorized business office representative agreed to proceed Joesph Pink is accompanied to today's clinic visit by her mother. RECORDS REVIEWED PRIOR TO VISIT: [facility] EMR including but not limited to any available clinic notes, lab results, imaging reports, and cardiac studies. Information obtained from parents/patient and via medical record review Consultation requested by Dr. Dupree for an opinion regarding joint hypermobility and family history of abnormal genetic testing. My final recommendations will be communicated back to the requesting physician by way of shared Medical record or letter to requesting physician via US mail. 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 Joesph reports a history of hypermobility during childhood, which has decreased over time. She has experienced multiple joint dislocations and subluxations, including the shoulder, hips, and knee. She denies any history of fractures but has had a torn MCL, PCL, and rotator cuff under the age of 22, which required surgery. These injuries were not trauma-related but were due to use. She reports joint pain and has had all her teeth removed due to severe cavities and tooth loss, with her dentist noting severe bone loss. She also has a narrow palate and endorses a history of delayed wound healing, abnormal scarring, hyperextensible skin, easy bruising, and prolonged bleeding. She notes difficulty with adhesive bandages. She has numerous tattoos and report these took about 1 week longer to heal than expected. She required iron transfusions in the past due to severe fibroids and had a hysterectomy related to that. She is unsure if she has had an echocardiogram but thinks she does and it noted some enlargement of the right side of her heart. She has myopia and severe astigmatism but no history of retinal tear or detachment. She is suspected to have POTS but has not undergone a tilt table test. She reports difficulty staying asleep, fatigue, anxiety, and depression. She has stretch rodriguez, high arches, and a history of hip dysplasia that required bracing on her legs. She is suspected to have autism but hasn't been formally evaluated and has ADHD. She also has urticarian eczema with no known triggers. She reports proximal muscle weakness in her legs and arms, which she was told was due to degenerative disc disease and a history of spina bifida occulta. She gets recurrent kidney stones every other month and usually passes them on her own with medication. She has not had genetic testing. Although the referral states there is a family history of abnormal genetic testing, this is denied. Upon chart review, a BRCA1 variant was reported. She reports that she has not had clinical grade genetic testing. She had testing through and hi and ran the raw data through a program. PAST MEDICAL HISTORY: Aside from above: Menometrorrhagia Dysmenorrhea Leiomyoma of uterus Adenomyosis Blood loss anemia requiring infusions Bipolar Disorder PAST SURGICAL HISTORY: Hysterectomy MEDICATIONS: Current Outpatient Medications on File Prior to Visit Medication Sig Amphetamine-Dextroamphe tamine (ADDERALL) 30 mg tablet Take 1 tablet by mouth every afternoon. methocarbamol (ROBAXIN) 750 mg tablet Take 750 mg by mouth daily at bedtime. pregabalin (LYRICA) 75 mg capsule TAKE 1 CAPSULE BY MOUTH ONCE DAILY at EIGHT IN THE EVENING No current facility-administered medications on file prior to visit. ALLERGIES: ALLERGIES Allergen Reactions Percocet [Oxycodone* Hives SOCIAL HISTORY: Lives in [place] with her mother, , and three kids. Employment: Unemployed Level of education: Completed college Alcohol/cigarettes/othe r: Medical marijuana FAMILY HISTORY: A four generation pedigree was collected by Gloria Read MS, VERN at the patient's separate genetic counseling encounter. The pedigree will be scanned into [employer]. This information was reviewed with the family and modified as necessary; refer to the genetic counseling encounter and formal pedigree for other details on the family history. - Patient's ethnicity: Maternal Mongolian/Elisabet; Paternal Scottis (more content not included)... Normal [facility] Office Visit (MAW) JOESPH PINK ([id number]) 1990 F Date Time Provider Department 10/08/24 10:30 AM [facility] During your visit today, we recorded the following information about you: Gloria Read [facility] 10/08/2024 12:53 PM Addendum Patient Name and confirmed at initiation of visit Dr. Will Dupree requested a genetic consultation for Joesph Pink, a 34 year old female, for discussion of her personal history of tooth loss and joint pain. Prior to the visit, the genetic counselor reviewed records in the patient's EMR including, but not limited to, available clinic notes, physician consultations, laboratory tests, imaging reports, cardiac studies, and other investigations and evaluations. The genetic counselor also reviewed the case with Dr. Mehta as needed prior to seeing the patient. The patient was accompanied to today's appointment by her mother. HISTORY OF PRESENT CONDITION: Joesph is a 34 year old female who was referred to be evaluated for a connective tissue disorder based on her personal and family history. She herself acknowledge a history of joint dislocations involving her hips, shoulders and knees as well as subluxations. 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 Prior to 22, she required surgery to repair a torn mcl, pcl, and rotator cuff that were torn due to use not injury. She has an extensive dental history including multiple cavities despite good oral hygiene, tooth loss, bone loss, and a narrow palate. She is acquiring dentures due to this history and multiple paternal family members also have similar dental concerns. Ms. Pink believes she has had an echocardiogram in the past that demonstrated an enlarged right side of her heart per her report (no copy of echo available). 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 Joesph denies a history of all of the following: chest wall abnormalities, organ rupture/prolapse, aneurysms, and hearing loss. Other health history includes ADHD and suspected autism, migraines, ?proximal muscle weakness, sun/cold induced urticaria, allergies, and chronic kidney stones. Ms. Pink was evaluated today by Dr. Mehta and additional history is available in her note. PERTINENT PAST MEDICAL AND SURGICAL HISTORY INCLUDES: No past medical history on file. No past surgical history on file. PREVIOUS GENETIC TESTING: -None SOCIAL HISTORY: Lives in [place] with her mother, , and three kids. Employment: Unemployed Level of education: Completed college Alcohol/cigarettes/othe r: Medical marijuana FAMILY HISTORY: - Patient's ethnicity: Maternal Mongolian/Elisabet; Paternal Burkinan/Mongolian/ AJ. - Partner's ethnicity: not applicable. - No known -Djiboutian, Mediterranean, /, [place] Citizen-Comoran/Cajun, or Ashkenazi Evangelical ancestry unless noted above. - Parental consanguinity: No A 4 generation pedigree was collected and will be scanned below. Pertinent findings are noted. Children: 12 yo and 9 yo daughter who are hypermobile. The 12 yo also has ADHD and the 9 yo has allergies. Full siblings and their children: Younger brother who also has poor dentition where he is losing teeth and likely needs dentures. He is hypermobile and has flat feet. Maternal half siblings and their children: None Paternal half siblings and their children: 32 yo ssiter who has ankylosying spondylitis and her son is autisitic. Parental losses: None Mother: 56 years old. History of MS, joint pain, and type II diabetes.. Maternal relatives: Of significance, two aunts had MIKAYLA due to fibroids. Uncle passed at 59 from complications of diabetes and he had leukemia. Father: 59 years old. History of extensive cavities and teeth falling out. He is bow legged and has joint pain. He had a TIA at 30 thought to be due to protein C deficiency. Paternal relatives: Of significance, almost all of Joesph 's aunts and uncles as well as first cousins have required dentures around 30. They also have joint pain. In addition, she has a first cousin who has cleft lip and palate as well as unilateral polydactyly. Grandfather's sister and brother also had cleft lip and palate. One aunt had colon cancer in her 50s. . The remainder of Ms. Pink's reported family history is negative for known or suspected genetic disease, defects, developmental delay/intellectual disability, infertility, recurrent loss, and unexplained infan (more content not included)... [facility] JOESPH PINK ([id number]) 1990 F Date Time Provider Department 10/05/24 GLORIA READ During your visit today, we recorded the following information about you: Amber Murphy 10/05/2024 9:42 AM Signed Attempted to reach PT to follow up on previous conversation about records from . Left a vague VM on an unidentified voicemail box. Explained that I would also be following up with a [employer]t message that they could respond there or provided the [facility] line for a call back. 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 - methocarbamol (ROBAXIN) 750 mg tablet Take 750 mg by mouth daily at bedtime. - pregabalin (LYRICA) 75 mg capsule TAKE 1 CAPSULE BY MOUTH ONCE DAILY at EIGHT IN THE EVENING Problem List As Of Date: 10/05/2024 (None) Encounter Status:Closed by AMBER MURPHY on 10/05/24 [facility] Nick 08-28-2024 [facility] Telephone ([facility]) JOESPH PINK ([id number]) 1990 F Date Time Provider Department 08/28/24 GLORIA READ During your visit today, we recorded the following information about you: Amber Murphy 08/28/2024 2:10 PM Signed Received a call from PT looking to have records sent to genetics prior to her appt. PT explained that her RP would like to send records over but the file was too large to send by fax. Secure [employer] inbox [email or web address] was provided. She had no further questions at this time. 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 - methocarbamol (ROBAXIN) 750 mg tablet Take 750 mg by mouth daily at bedtime. - pregabalin (LYRICA) 75 mg capsule TAKE 1 CAPSULE BY MOUTH ONCE DAILY at EIGHT IN THE EVENING Problem List As Of Date: 08/28/2024 (None) Encounter Status:Closed by AMBER MUPRHY on 08/28/24 Normal [facility] BI MAMMOGRAM DIAGNOSTIC YVETTE SYNTHESIS BILATERALon 05-14-2024 BI MAMMOGRAM DIAGNOSTIC TOMOSYNTHESIS BILATERAL This is a summary report. The complete report is available in the patient's medical record. If you cannot access the medical record, please contact the sending organization for a detailed fax or copy. EXAMINATION: BI MAMMOGRAM DIAGNOSTIC TOMOSYNTHESIS BILATERAL CLINICAL HISTORY: lump at 12 o'clock TECHNIQUE: Diagnostic digital mammogram study of both breasts was performed performed with 2D and 3D tomosynthesis imaging. Study was compared to the right breast ultrasound exam dated 05/14/2024. FINDINGS: Skin marker is placed in the area of clinically palpable lump superiorly near the midline. No convincing evidence of focal associated abnormality. Ill-defined areas of asymmetric density on the right primarily in the upper outer portion likely related to fibroglandular tissue. No obvious dominant spiculated mass, grouped microcalcifications or skin thickening which would be suggestive of malignancy. Ultrasound study of the right breast failed to demonstrate obvious focal abnormality. A few benign-appearing calcifications are seen on the left. Benign-appearing nodular density on the left posteriorly on the MLO view noted near the midline on cc view likely representing intramammary lymph node or other benign process. Axillary lymph nodes noted bilaterally. IMPRESSION: No specific evidence of malignancy seen in either breast. Likely areas of focal fibroglandular tissue on the right. Likely benign nodular density on the left posteriorly as described. Follow-up diagnostic mammogram study of the breasts as well as ultrasound study of the breasts recommended in 6 months to assess stability on the right and to reevaluate the likely benign finding on the left. BIRADS 3 - Probably Benign Findings DENSITY: There are scattered areas of fibroglandular density. FOLLOW-UP: Diagnostic Mammogram in 6 Months, breast ultrasound in 6 months Board Certified Radiologists. Accredited by the ACR and FDA. MAMMOGRAPHY IS VERY IMPORTANT TO YOUR HEALTH. THE [place] [employer] GUIDELINES RECOMMEND THAT WOMEN 40 YEARS OF AGE AND OLDER SHOULD HAVE A MAMMOGRAM EVERY YEAR. A REMINDER LETTER WILL BE SENT AT THE APPROPRIATE TIME. ELECTRONICALLY SIGNED BY: Davis Anderson M.D. Normal Not Available BI US BREAST LIMITED RIGHTon 05-14-2024 BI US BREAST LIMITED RIGHT Examination: BI US BREAST LIMITED RIGHT Reason for Study: lump at 12 o'clock Comparison: Diagnostic mammogram study of the breasts dated 05/14/2024. Technique: Right breast ultrasound study performed from the 9:00 to 3 o'clock position to include area of clinically palpable lump. Findings: No obvious solid or cystic mass. No obvious solid vascular mass to suggest neoplasm. No obvious abnormal calcifications or vascularity. Areas of dense fibroglandular tissue suggested. IMPRESSION: Impression: Right breast ultrasound study fails to convincingly demonstrate evidence of neoplasm. Areas of dense fibroglandular tissue suggested. Follow-up diagnostic mammogram study of the breasts as well as ultrasound study of the breasts in 6 months recommended to assess stability including the likely benign nodular density in the left breast posteriorly on mammogram study. BI-RADS 3 ELECTRONICALLY SIGNED BY: Davis Anderson M.D. Normal Not Available ABO/Rh Retypeon 03-15-2024 ABO/RH Recheck Result Positive Normal [facility] Comment on above: Result Comment: PERF ORMED BY: [place] [address] PATHOLOGIST LEASE PURCHASE DRIVER ARTURO SCHULTZ M.D. HCG ( test) IA.rapi d Ql (U)Ordered By: Deirdre King on 03-15-2024 HCG ( test) Ql (U) Negative [facility] HCG,Urineon 03-15-2024 Beta HCG ( test) Ql (U) Negative Normal [facility] Comment on above: Result Comment: PERF ORMED BY: [place] [address] PATHOLOGIST LE[employer] PURCHASE DRIVER ARTURO SCHULTZ M.D. Performed By: #### U HCG #### [place] [address] [place] Robert 03-15-2024 L Specimen: [id number] Received: 03/15/24 Status: SOUT [place] Num: [id number] Spec Type: Surgical Subm Dr: GAGANDEEP KUMAR MD Tissues: A Uterus w/ or w/o tubes ovaries except neoplastic or prolap (UTER,CER,MAREK T Procedures: , Gross/Micro L5 Age/ Patient Sex Location Account Attending Physician Joesph Pink / [place] [id number] GAGANDEEP KUMAR MD SPEC NUM: [id number] RECD: 03/15/24 STATUS: BRUNAJacqui MONDRAGON NUM: [id number] HENRI: 03/15/24 DR: GAGANDEEP KUMAR MD ENTERED: 03/15/24 [facility] DR: SPEC TYPE: Surgical DEPT: S ENTERED BY: [id number] RECV BY: [id number] ORDERED: , Gross/Micro L5 ORDERED: , Gross/Micro L5 Pathological Diagnosis Uterus, cervix, bilateral fallopian tubes and ovaries, total hysterectomy with bilateral salpingo oophorectomy -Cervix with minor chronic cervicitis and occasional nabothian cysts without dysplasia -Corpus with slightly disordered proliferative endometrium of the mid phase type without hyperplasia or atypia -Incidental focal denudation of superficial uterine mucosa -Incidental focal mild superficial adenomyosis -Incidental at least 1 intermediate sized fibroid leiomyoma -Right ovary with multiple small to large follicular cysts, including 1 very large evolving corpus luteum cyst and/or persistent follicular cyst, occasional small cystic follicles, and multiple corpus albicans and/or resolving residual structures -Left ovary also with multiple evolving or persistent follicular cysts and occasional small cystic follicles, occasional persistent residual cysts, and occasional residual structures or small corpus albicans -Intact fimbriated bilateral fibrin tubes without significant histopathological alterations, except at least 1 large paratubal cyst and 1 large Walthard cyst each on Left tube Note: -Overall findings are also suspected for the polycystic ovarian syndrome in both ovaries without atypia identified Specimen: [id number] Received: 03/15/24 Status: DARREN Mondragon Num: [id number] Spec Type: Surgical Subm Dr: GAGANDEEP KUMAR MD Tissues: A Uterus w/ or w/o tubes ovaries except neoplastic or prolap (UTER,CER,MAREK T Procedures: , Gross/Micro L5 Patient: Joesph Pink [id number] (Continued) Specimen: [id number] Received: 03/15/24 (Continued) Signed (signature on file) Axel Bowden MD 03/20/24 1413 Specimen: [id number] Received: 03/15/24 Status: DARREN Mondragon Num: [id number] Spec Type: Surgical Subm Dr: GAGANDEEP KUMAR MD Tissues: A Uterus w/ or w/o tubes ovaries except neoplastic or prolap (UTER,CER,MAREK T Procedures: , Gross/Micro L5 Patient: Joesph Pink [id number] (Continued) Specimen: [id number] Received: 03/15/24-1639 (Continued) Clinical Information BRCA positive, subserosal leiomyoma of uterus, adenomyosis Gross Description The specimen is received in formalin with the patient's name and uterus, cervix, bilateral fallopian tubes and ovaries and consists of a 178 g uterus and cervix with attached bilateral fallopian tubes and ovaries. The uterus and cervix measure 9.9 from superior to inferior, 5.1 cm from anterior to posterior, 7.0 cm from cornu to cornu. The serosal surface is goode-pink and smooth. The cervix measures 4.9 cm in length with a diameter of 3.5 cm. The cervical mucosa is goode-marroquin and smooth. The external os measures 1.1 cm in diameter. The specimen is bivalved to reveal a endocervical canal measuring 5.5 cm in length and a endometrial cavity measuring 3.4 cm from superior to inferior, 1.5 cm from cornu to cornu. The anterior endomyometrium has a thickness of 3.0 cm, and the posterior measures 2.9 cm in thickness. Sectioning through the anterior aspect reveals a intramural leiomyoma measuring 1.8 cm in greatest dimension. The right ovary measures 3.2 x 2.2 x 2.2 cm. The external surface is goode-white and smooth. Sectioning through the ovary reveals multiple cystic structures ranging in size from 0.3 to 2.0 cm. The largest cystic structure has a translucent wall and is filled with a clear fluid. The right fimbriated fallopian tube measures 4.0 cm in length with a diameter of 0.6 cm. The left ovary measures 3.4 x 2.1 x 1.5 cm. The external surface of the left ovary is goode-white and nodular, and with few small cystic structures on cut surfaces. The left fallopian tube (more content not included)... Normal [facility] Automated basophil %Ordered By: GAGANDEEP KUMAR on 03-01-2024 Basophils/100 WBC (Bld) 0.8 % Normal . [facility] Comment on above: Performed By: #### C BC, BMP #### [address] Automated basophil countOrde red By: GAGANDEEP KUMAR on 03-01-2024 Basophils (Bld) [#/Vol] 0.1 10*3/uL Normal 0.0-0.2 [facility] Comment on above: Result Comment: PERF ORMED BY: [place] [address] PATHOLOGIST LEASE PURCHASE DRIVER ARTURO SCHULTZ M.D. Performed By: #### C BC, BMP #### [address] Automated blood monocyte cou ntOrdered By: GAGANDEEP KUMAR on 03-01-2024 Monocytes (Bld) [#/Vol] 0.9 10*3/uL High 0.0-0.8 [facility] Comment on above: Performed By: #### C BC, BMP #### [address] Automated eosinophil %Ordere d By: GAGANDEEP KUMAR on 03-01-2024 Eosinophils/100 WBC (Bld) 2.2 % Normal . [facility] Comment on above: Performed By: #### C BC, BMP #### [address] Automated eosinophil countOr dered By: GAGANDEEP KUMAR on 03-01-2024 Eosinophils (Bld) [#/Vol] 0.3 10*3/uL Normal 0.0-0.45 [facility] Comment on above: Performed By: #### C BC, BMP #### [address] [place] [address] [place] Automated monocyte %Ordered By: GAGANDEEP KUMAR on 03-01-2024 Monocytes/100 WBC (Bld) 7.4 % Normal . [facility] Comment on above: Performed By: #### C BC, BMP #### [facility] [address] Automated neutrophil %Ordere d By: GAGANDEEP KUMAR on 03-01-2024 Neutrophils/100 WBC (Bld) 64.9 % Normal . [facility] Comment on above: Performed By: #### C BC, BMP #### [facility] [address] Basic Metabolic Panelon GFR/1.73 sq M.predicted MDRD (S/P/Bld) [Vol rate/Area] mL/min/{1.73_m2} Normal [facility] Comment on above: Performed By: #### C BC, BMP #### [facility] [address] Basic metabolic 1998 panelon 03-01-2024 Anion gap [Moles/Vol] 9.2 mmol/L 6.0 - 15.0 [facility] Calcium [Mass/Vol] 8.4 mg/dL Low 8.6 - 10. 3 mg/dL [facility] Chloride [Moles/Vol] 105 mmol/L 98 - 10 7 mmol/L [facility] CO2 [Moles/Vol] 28.1 mmol/L 21.0 - 31.0 mmol/L [facility] Creatinine (U) [Mass/Vol] 0.64 mg/dL 0.60 - 1.20 mg/dL [facility] GFR/1.73 sq M.predicted MDRD (S/P/Bld) [Vol rate/Area] mL/min/{1.73_m2} [facility] Glucose [Mass/Vol] 91 mg/dL 70 - 100 mg/dL [facility] Comment on above: Random Glucose Refer ence Range is dependent on time and content of last meal. Glucose of more than 200 mg/dL in a nonstressed, ambulatory subject supports the diagnosis of Diabetes Mellitus. ADA recommended reference range Interpretation and review of laboratory results Abnormal [facility] Potassium [Moles/Vol] 4.3 mmol/L 3.5 - 5.1 mmol/L [facility] Sodium [Moles/Vol] 138 mmol/L 136 - 145 mmol/L [facility] Urea nitrogen [Mass/Vol] 13 mg/dL 7 - 25 mg/dL [facility] CBC W Auto Differential pane l (Bld)on 03-01-2024 Basophils (Bld) [#/Vol] 0.1 10*3/uL 0.0 - 0.2 10*3/uL [facility] Basophils/100 WBC Manual cnt (Syn fld) 0.8 % . [facility] Eosinophils (Bld) [#/Vol] 0.3 10*3/uL 0.0 - 0.45 10*3/uL [facility] Eosinophils/100 WBC Manual cnt (Syn fld) 2.2 % . [facility] Erythrocyte distribution width (RBC) [Ratio] 13.1 % 11.9 - 15.3 % [facility] Hematocrit (Bld) [Volume fraction] 38.9 % 34.0 - 46.4 % [facility] Hemoglobin (Bld) [Mass/Vol] 12.9 g/dL 11.8 - 15.4 g/dL [facility] Interpretation and review of laboratory results Abnormal [facility] Lymphocytes (Bld) [#/Vol] 2.9 10*3/uL 1.00 - 4.8 10*3/uL [facility] Lymphocytes/100 WBC Manual cnt (Syn fld) 24.7 % . [facility] MCH (RBC) [Entitic mass] 31.6 pg 24.7 - 34.3 pg [facility] MCHC (RBC) [Mass/Vol] 33.2 g/dL 32.0 - 35.0 g/dL [facility] MCV (RBC) [Entitic vol] 95.2 fL 80 - 100 fL [facility] Monocytes (Bld) [#/Vol] 0.9 10*3/uL High 0.0 - 0.8 10*3/uL [facility] Monocytes+Macrophages/1 00 WBC Manual cnt (Syn fld) 7.4 % . [facility] Neutrophils (Bld) [#/Vol] 7.8 10*3/uL High 1.8 - 7.7 10*3/uL [facility] Neutrophils/100 WBC Manual cnt (Syn fld) 64.9 % . [facility] NRBC 0.0 /100{WBC} 0 - 0.5 /100{WBC} [facility] Platelet mean volume (Bld) [Entitic vol] 6.9 fL 6.3 - 10.7 fL [facility] Platelets (Bld) [#/Vol] 439 10*3/uL 150 - 450 10*3/uL [facility] RBC LM.HPF (Urine sed) [#/Area] 4.09 /[HPF] 3.60 - 5.00 [facility] WBC (Bld) [#/Vol] 11.9 10*3/uL High 3.8 - 11.6 10*3/uL [facility] WBC LM.HPF (Urine sed) [#/Area] 11.9 10*3/uL High 3.8 - 11.6 10*3/uL [facility] Calcium [Mass/volume] in Ser um or PlasmaOrdered By: GAGANDEEP KUMAR on 03-01-2024 Calcium [Mass/Vol] 8.4 mg/dL Low 8.6-10.3 [facility] Comment on above: Result Comment: PERF ORMED BY: [place] [address] PATHOLOGIST LEASE PURCHASE DRIVER ARTURO SCHULTZ M.D. Performed By: #### C ASH, BMP #### [address] Carbon dioxide, total [Moles /volume] in Serum or PlasmaOrdered By: GAGANDEEP KUMAR on 03-01-2024 CO2 [Moles/Vol] 28.1 mmol/L Normal 21.0-31.0 [facility] Comment on above: Performed By: #### C BC, BMP #### [place] [address] [place] Chloride [Moles/volume] in S emma or PlasmaOrdered By: GAGANDEEP KUMAR on 03-01-2024 Chloride [Moles/Vol] 105 mmol/L Normal 98-107 [facility] Comment on above: Performed By: #### C BC, BMP #### [facility] [address] Complete Blood Count Auto Di ffon 03-01-2024 Mean Corpuscular HGB Conc 33.2 g/dL Normal 32.0-35.0 [facility] Comment on above: Performed By: #### C ASH, BMP #### [facility] [address] NRBC% 0.0 /100{WBC} Normal 0-0.5 [facility] Comment on above: Performed By: #### C ASH, BMP #### [facility] [address] Creatinine [Mass/volume] in Serum or PlasmaOrdered By: GAGANDEEP KUMAR on 03-01-2024 Creatinine [Mass/Vol] 0.64 mg/dL Normal 0.60-1.20 [facility] Comment on above: Performed By: #### C ASH, BMP #### [address] Erythrocyte distribution wid th [Ratio] by Automated countOrdered By: GAGANDEEP KUMAR on 03-01-2024 Erythrocyte distribution width (RBC) [Ratio] 13.1 % Normal 11.9-15.3 [facility] Comment on above: Performed By: #### C ASH, BMP #### [address] Erythrocytes [#/volume] in B lood by Automated countOrdered By: GAGANDEEP KUMAR on 03-01-2024 RBC (Bld) [#/Vol] 4.09 10*6/uL Normal 3.60-5.00 [facility] Comment on above: Performed By: #### C ASH, BMP #### [place] [address] [place] Glucose [Mass/volume] in Ser um or PlasmaOrdered By: GAGANDEEP KUMAR on 03-01-2024 Glucose [Mass/Vol] 91 mg/dL Normal 70-100 [facility] Comment on above: ADA recommended refe rence rangeRandom Glucose Reference Range is dependent on time and content of last meal. Glucose of more than 200 mg/dL in a nonstressed, ambulatory subject supports the diagnosis of Diabetes Mellitus. Result Comment: [facility] Glucose Reference Range is dependent on time and content of last meal. Glucose of more than 200 mg/dL in a nonstressed, ambulatory subject supports the diagnosis of Diabetes Mellitus. ADA recommended reference range Performed By: #### C ASH, BMP #### [address] Hematocrit [Volume Fraction] of Blood by Automated countOrdered By: GAGANDEEP KUMAR on 03-01-2024 Hematocrit (Bld) [Volume fraction] 38.9 % Normal 34.0-46.4 [facility] Comment on above: Performed By: #### C ASH, BMP #### [address] Hemoglobin [Mass/volume] in BloodOrdered By: GAGANDEEP KUMAR on 03-01-2024 Hemoglobin (Bld) [Mass/Vol] 12.9 g/dL Normal 11.8-15.4 [facility] Comment on above: Performed By: #### C ASH, BMP #### [address] Leukocytes [#/volume] correc kayley for nucleated erythrocytes in Blood by Automated counOrdered By: GAGANDEEP KUMAR on 03-01-2024 WBC corrected for nucl RBC Auto (Bld) [#/Vol] 11.9 10*3/uL High 3.8-11.6 [facility] Leukocytes [#/volume] in Blo od by Automated countOrdered By: GAGANDEEP KUMAR on 03-01-2024 WBC (Bld) [#/Vol] 11.9 10*3/uL High 3.8-11.6 [facility] Comment on above: Performed By: #### C ASH, BMP #### [place] [address] [place] Lymphocytes [#/volume] in Bl ood by Automated countOrdered By: GAGANDEEP KUMAR on 03-01-2024 Lymphocytes (Bld) [#/Vol] 2.9 10*3/uL Normal 1.00-4.8 [facility] Comment on above: Performed By: #### C ASH, BMP #### [address] Lymphocytes/100 leukocytes i n Blood by Automated countOrdered By: GAGANDEEP KUMAR on 03-01-2024 Lymphocytes/100 WBC (Bld) 24.7 % Normal . [facility] Comment on above: Performed By: #### C BC, BMP #### [address] MCH [Entitic mass] by Automa kayley countOrdered By: GAGANDEEP KUMAR on 03-01-2024 MCH (RBC) [Entitic mass] 31.6 pg Normal 24.7-34.3 [facility] Comment on above: Performed By: #### C BC, BMP #### [address] MCHC Auto (RBC) [Mass/Vol]Or dered By: GAGANDEEP KUMAR on 03-01-2024 MCHC (RBC) [Mass/Vol] 33.2 g/dL 32.0-35.0 [facility] MCV [Entitic volume] by Auto mated countOrdered By: GAGANDEEP KUMAR on 03-01-2024 MCV (RBC) [Entitic vol] 95.2 fL Normal 80-100 [facility] Comment on above: Performed By: #### C BC, BMP #### [address] Neutrophils [#/volume] in Bl ood by Automated countOrdered By: GAGANDEEP KUMAR on 03-01-2024 Neutrophils (Bld) [#/Vol] 7.8 10*3/uL High 1.8-7.7 [facility] Comment on above: Performed By: #### C BC, BMP #### [address] No Panel InformationOrdered By: GAGANDEEP KUMAR on 03-01-2024 Estimated GFR (CKD-EPI) > 60.0 mL/Min [facility] Creatinine Clearance (Chem N/A [facility] Nucleated erythrocytes [Pres ence] in Blood by Automated countOrdered By: GAGANDEEP KUMAR on 03-01-2024 Nucleated RBC Auto Ql (Bld) 0.0 /100{WBC} 0-0.5 [facility] PST Type and Screenon 2023 ABO and Rh group Nom (Bld) Blood group A Rh(D) positive Normal [facility] Comment on above: Order Comment: Date of Surgery: [id number] Result Comment: PERF ORMED BY: [address] [place] [address] PATHOLOGIST LEASE PURCHASE DRIVER ARTURO SCHULTZ M.D. Platelet mean volume [Entiti c volume] in Blood by Automated countOrdered By: GAGANDEEP KUMAR on 03-01-2024 Platelet mean volume (Bld) [Entitic vol] 6.9 fL Normal 6.3-10.7 [facility] Comment on above: Performed By: #### C BC, BMP #### [facility] [address] [place] [address] [place] Platelets [#/volume] in Bloo d by Automated countOrdered By: GAGANDEEP KUMAR on 03-01-2024 Platelets (Bld) [#/Vol] 439 10*3/uL Normal 150-450 [facility] Comment on above: Performed By: #### C BC, BMP #### [facility] [address] [place] [address] [place] Potassium [Moles/volume] in Serum or PlasmaOrdered By: GAGANDEEP KUMAR on 03-01-2024 Potassium [Moles/Vol] 4.3 mmol/L Normal 3.5-5.1 [facility] Comment on above: Performed By: #### C BC, BMP #### [facility] [address] [place] [address] [place] Serum or plasma anion gap de terminationOrdered By: GAGANDEEP KUMAR on 03-01-2024 Anion gap [Moles/Vol] 9.2 mmol/L Normal 6.0-15.0 [facility] Comment on above: Performed By: #### C BC, BMP #### [facility] [address] [place] [address] [place] Sodium [Moles/volume] in Ser um or PlasmaOrdered By: GAGANDEEP KUMAR on 03-01-2024 Sodium [Moles/Vol] 138 mmol/L Normal 136-145 [facility] Comment on above: Performed By: #### C ASH, HOMERO #### [facility] [address] Urea nitrogen [Mass/volume] in Serum or PlasmaOrdered By: GAGANDEEP JOSÉ on 03-01-2024 Urea nitrogen [Mass/Vol] 13 mg/dL Normal 7-25 [facility] Comment on above: Performed By: #### C ASH, BMP #### [facility] [address] Image-guided pap and hpv mrn a e6/e7 reflex genotypes 16, 18/45on 01-27-2024 Base Remover Cyto stain Nom (Cvx/Vag) [ID] Comment [facility] Comment on above: Liam Arriaga, Cytot echnologist (ASCP) Cytology report Cyto stain Doc (Cvx/Vag) Comment [facility] Comment on above: UNSATISFACTORY FOR E VALUATION. SPECIMEN REPROCESSED FOR INTERPRETATION USING GLACIAL ACETIC ACID (GAA). Cytology report Cyto stain.thin prep Doc (Cvx/Vag) Comment [facility] Comment on above: This liquid based Th inPrep(R) pap test was screened with the use of an image guided system. Diagnosis ICD code [Identifier] Comment [facility] Comment on above: Z12.4 Z11.51 HPV 16+18+31+33+35+39+45+51 +52+56+58+59+66+68 DNA Probe+sig amp Ql (Cvx) Negative Negative [facility] Comment on above: This nucleic acid am plification test detects fourteen high-risk HPV types (16,18,31,33,35,39,45,51,52,56,58,59,66,68) without differentiation. HPV Genotype Reflex Comment [facility] Comment on above: Criteria not met, HP V Genotype not performed. Microscopic observation Other stain Nom (Unsp spec) . [facility] Note: Comment [facility] Comment on above: The Pap smear is a s creening test designed to aid in the detection of premalignant and malignant conditions of the uterine cervix. It is not a diagnostic procedure and should not be used as the sole means of detecting cervical cancer. Both false-positive and false-negative reports do occur. QC Reviewed By: Comment [facility] Comment on above: [facility] [place] (ASCP) Recommended follow-up Cyto stain Nom (Cvx/Vag) Comment [facility] Comment on above: Suggest follow up as clinically appropriate. Statement of adequacy Cyto stain (Cvx/Vag) [Interp] Comment [facility] Comment on above: Specimen processed a nd examined but unsatisfactory for evaluation of epithelial abnormality because of obscuring blood. Performed at: 01 - [facility] [id number] Web Marketing Analyst: Dorys Leon MD, Phone: [phone] Performed at: - [facility] [id number] Web Marketing Analyst: Dorys Leon MD, Phone: [phone] Specimen Comment: No. of containers..01 [facility] CBC AND AUTO DIFFon 01-14-20 24 ABSOLUTE BASOPHIL 0.1 X10E9/L Normal 0.0-0.2 [facility] Comment on above: Performed By: #### C BCA, FEPR, 2275-, 2283-12, 2132-01 #### [facility] ([id number]) [address], [address] [place] [address] ABSOLUTE NEUTROPHIL 6.6 X10E9/L Normal 1.5-6.6 [facility] Comment on above: Performed By: #### C BCA, FEPR, 2275-, 2283-12, 2132-01 #### [facility] ([id number]) [address], [address] [place] [address] Basophils/100 WBC (Bld) 0.6 % Normal P [facility] Comment on above: Performed By: #### C BCA, FEPR, 2275-, 2283-12, 2132-01 #### [facility] ([id number]) [address], [address] [place] [address] Eosinophils (Bld) [#/Vol] 0.2 10*3/uL Normal 0.0-0.[address] [facility] Comment on above: Performed By: #### C BCA, FEPR, 2275-08, 2283-12, 2132-01 #### [facility] ([id number]) [address], [address] [place] [address] Eosinophils/100 WBC (Bld) 1.7 % Normal [facility] Comment on above: Performed By: #### C BCA, FEPR, 2275-08, 2283-12, 2132-01 #### [facility] ([id number]) [address], [facility] [address] [place] [address] Erythrocyte distribution width (RBC) [Ratio] 13.7 % Normal 11.5-15.[address] [facility] Comment on above: Performed By: #### C BCA, FEPR, 2275-08, 2283-12, 2132-01 #### [facility] ([id number]) [address], [address] [place] [address] Hematocrit (Bld) [Volume fraction] 40.3 % Normal 35-[address] [facility] Comment on above: Performed By: #### C BCA, FEPR, 2275-08, 2283-12, 2132-01 #### [facility] ([id number]) [address], [address] [place] [address] Hemoglobin (Bld) [Mass/Vol] 13.9 g/dL Normal 11.7-15.[address] [facility] Comment on above: Performed By: #### C BCA, FEPR, 2275-08, 2283-12, 2132-01 #### [facility] ([id number]) [address] [address] [place] [address] Lymphocytes (Bld) [#/Vol] 2.1 10*3/uL Normal 1.0-3.[address] [facility] Comment on above: Performed By: #### C BCA, FEPR, 2275-08, 2283-12, 2132-01 #### [facility] ([id number]) [address] [place] [address] Lymphocytes/100 WBC (Bld) 21.2 % Normal [facility] Comment on above: Performed By: #### C BCA, FEPR, 2275-, 2283-12, 2132-01 #### [facility] ([id number]) [address] [place] [address] MCH (RBC) [Entitic mass] 32.6 pg Normal 27-[address] [facility] Comment on above: Performed By: #### C BCA, FEPR, 2275-08, 2283-12, 2132-01 #### [facility] ([id number]) [address], [address] [place] [address] MCHC (RBC) [Mass/Vol] 34.4 g/dL Normal 32-36 [facility] Comment on above: Performed By: #### C BCA, FEPR, 2275-08, 2283-12, 2132-01 #### [facility] ([id number]) [address] [place] [address] MCV (RBC) [Entitic vol] 95 fL Normal 80-100 P [facility] Comment on above: Performed By: #### C BCA, FEPR, 2275-08, 2283-12, 2132-01 #### [facility] ([id number]) [address] [place] [address] Monocytes (Bld) [#/Vol] 0.9 10*3/uL Normal 0-0.[address] [facility] Comment on above: Performed By: #### C BCA, FEPR, 2275-, 2283-12, 2132-01 #### [facility] ([id number]) [address] [address] [place] [address] Monocytes/100 WBC (Bld) 9.1 % Normal P [facility] Comment on above: Performed By: #### C BCA, FEPR, 2275-4, 2283-12, 2132-01 #### [facility] ([id number]) [address] [place] [address] Neutrophils/100 WBC (Bld) 67.4 % Normal [facility] Comment on above: Performed By: #### C BCA, FEPR, 2275-4, 2283-12, 2132-01 #### [facility] ([id number]) [address], [address] [place] [address] Platelet mean volume (Bld) [Entitic vol] 7.2 fL Normal 7-[address] [facility] Comment on above: Performed By: #### C BCA, FEPR, 2275-08, 2283-12, 2132-01 #### [facility] ([id number]) [address] [place] [address] Platelets (Bld) [#/Vol] 372 10*3/uL Normal 150-[address] [facility] Comment on above: Performed By: #### C BCA, FEPR, 2275-, 2283-12, 2132-01 #### [facility] ([id number]) [address] [place] [address] RBC COUNT 4.26 X10E12/L Normal 3.80-5.[address] [facility] Comment on above: Performed By: #### C BCA, FEPR, 2275-4, 2283-12, 2132-01 #### [facility] ([id number]) [address], [address] [place] [address] WBC (Bld) [#/Vol] 9.7 10*3/uL Normal 4.0-11.0 [facility] Comment on above: Performed By: #### C BCA, FEPR, 2275-4, 2283-12, 2132-01 #### [facility] ([id number]) [address], [address] [place] [address] FERRITINon 01-14-2024 Ferritin [Mass/Vol] 58 ng/mL Normal 11-307 [facility] Comment on above: Performed By: #### C BCA, FEPR, 6-4, 2283-8, 2132-01 #### [facility] ([id number]) [address] [place] [address] Folate [Mass/Vol]on 01-14-20 24 FOLIC ACID 7.9 ng/mL Normal >5.[address] [facility] Comment on above: Result Comment: NEW REFERENCE RANGE Performed By: #### C BCA, FEPR, 6-4, 2283-8, 2132-01 #### [facility] ([id number]) [address] [place] [address] IRON PROFILEon 01-14-2024 Iron [Mass/Vol] 147 ug/dL Normal 50-[address] [facility] Comment on above: Performed By: #### C BCA, FEPR, 2275-4, 8, 2132-01 #### [facility] ([id number]) [address] [place] [address] IRON BINDING 370 ug/dL Normal 250-[address] [facility] Comment on above: Performed By: #### C BCA, FEPR, 6-4, 2283-8, 2132-01 #### [facility] ([id number]) [address] [place] [address] IRON SATURATION 40 % SATURATION Normal 15-50 [facility] Comment on above: Performed By: #### C BCA, FEPR, 6-4, 2283-8, 2132-01 #### [facility] ([id number]) [address] [place] [address] VITAMIN B12on 01-14-2024 Cobalamin (Vitamin B12) [Mass/Vol] 167 pg/mL Low 180-[address] [facility] Comment on above: Performed By: #### C TOD, FEPR, 2275-08, 2132-01, 2283-12 #### [facility] ([id number]) [address] [place] [address] XR HIPS BILAT W OR WO PELVIS [...] on 09/13/2023 9:36 PM Normal [facility] CBC AND AUTO DIFFon 09-10-19 24 ABSOLUTE BASOPHIL 0.1 X10E9/L Normal 0.0-0.2 [facility] Comment on above: Performed By: #### C TOD, FEPR, 2275-08, 2132-01, 2283-12 #### [facility] ([id number]) [address] [place] [address] ABSOLUTE NEUTROPHIL 3.8 X10E9/L Normal 1.5-6.6 [facility] Comment on above: Performed By: #### C TOD, FEPR, 2275-08, 2132-01, 2283-12 #### [facility] ([id number]) [address] [place] [address] Basophils/100 WBC (Bld) 0.9 % Normal [facility] Comment on above: Performed By: #### C BCA, FEPR, 2275-08, 2132-01, 2283-12 #### [facility] ([id number]) [address], [facility] [address] [place] [address] Eosinophils (Bld) [#/Vol] 0.1 10*3/uL Normal 0.0-0.[address] [facility] Comment on above: Performed By: #### C BCA, FEPR, 2275-08, 2132-01, 2283-12 #### [facility] ([id number]) [address], [facility] [address] [address] [place] [address] Eosinophils/100 WBC (Bld) 1.5 % Normal [facility] Comment on above: Performed By: #### C BCA, FEPR, 2275-08, 2132-01, 2283-12 #### [facility] ([id number]) [address], [facility] [address] [place] [address] Erythrocyte distribution width (RBC) [Ratio] 13.0 % Normal 11.5-15.[address] [facility] Comment on above: Performed By: #### C BCA, FEPR, 2275-08, 2132-01, 2283-12 #### [facility] ([id number]) [address] [address] [place] [address] Hematocrit (Bld) [Volume fraction] 38.3 % Normal 35-[address] [facility] Comment on above: Performed By: #### C BCA, FEPR, 2275-08, 2132-01, 2283-12 #### [facility] ([id number]) [address] [address] [place] [address] Hemoglobin (Bld) [Mass/Vol] 13.0 g/dL Normal 11.7-15.[address] [facility] Comment on above: Performed By: #### C BCA, FEPR, 2275-08, 2132-01, 2283-12 #### [facility] ([id number]) [address] [place] [address] Lymphocytes (Bld) [#/Vol] 1.5 10*3/uL Normal 1.0-3.[address] [facility] Comment on above: Performed By: #### C BCA, FEPR, 2275-08, 2132-01, 2283-12 #### [facility] ([id number]) [address], [facility] [address] [place] [address] Lymphocytes/100 WBC (Bld) 25.0 % Normal [facility] Comment on above: Performed By: #### C BCA, FEPR, 2275-08, 2132-01, 2283-12 #### [facility] ([id number]) [address], [facility] [address] [place] [address] MCH (RBC) [Entitic mass] 31.4 pg Normal 27-[address] [facility] Comment on above: Performed By: #### C BCA, FEPR, 2275-08, 2132-01, 2283-12 #### [facility] ([id number]) [address] [address] [place] [address] MCHC (RBC) [Mass/Vol] 34.1 g/dL Normal 32-36 [facility] Comment on above: Performed By: #### C BCA, FEPR, 2275-08, 2132-01, 2283-12 #### [facility] ([id number]) [address] [place] [address] MCV (RBC) [Entitic vol] 92 fL Normal 80-100 [facility] Comment on above: Performed By: #### C BCA, FEPR, 2275-08, 2132-01, 2283-12 #### [facility] ([id number]) [address] [address] [place] [address] Monocytes (Bld) [#/Vol] 0.5 10*3/uL Normal 0-0.[address] [facility] Comment on above: Performed By: #### C BCA, FEPR, 2275-08, 2132-01, 2283-12 #### [facility] ([id number]) [address] [place] [address] Monocytes/100 WBC (Bld) 8.6 % Normal P [facility] Comment on above: Performed By: #### C BCA, FEPR, 2275-08, 2132-01, 2283-12 #### [facility] ([id number]) [address] [place] [address] Neutrophils/100 WBC (Bld) 64.0 % Normal [facility] Comment on above: Performed By: #### Raul BCA, FEPR, 2275-08, 2132-01, 2283-12 #### [facility] ([id number]) [address] [place] [address] Platelet mean volume (Bld) [Entitic vol] 7.6 fL Normal 7-[address] [facility] Comment on above: Performed By: #### Raul BCA, FEPR, 2275-08, 2132-01, 2283-12 #### [facility] ([id number]) [address] [place] [address] Platelets (Bld) [#/Vol] 408 10*3/uL Normal 150-[address] [facility] Comment on above: Performed By: #### Raul BCA, FEPR, 2275-08, 2132-01, 2283-12 #### [facility] ([id number]) [address] [place] [address] RBC COUNT 4.16 X10E12/L Normal 3.80-5.[address] [facility] Comment on above: Performed By: #### Raul BCA, FEPR, 2275-08, 2132-01, 2283-12 #### [facility] ([id number]) [address] [place] [address] WBC (Bld) [#/Vol] 6.0 10*3/uL Normal 4.0-11.0 [facility] Comment on above: Performed By: #### C BCA, FEPR, 2275-4, 2132-01, 2283-8 #### [facility] ([id number]) [address] [place] [address] FERRITINon 09-10-2023 Ferritin [Mass/Vol] 10 ng/mL Low 11-307 [facility] Comment on above: Performed By: #### C BCA, FEPR, 2275-08, 2132-01, 2283-12 #### [facility] ([id number]) [address] [place] [address] Folate [Mass/Vol]on 09-10-19 24 FOLIC ACID 10.9 ng/mL Normal >5.[address] [facility] Comment on above: Result Comment: NEW REFERENCE RANGE Performed By: #### C BCA, FEPR, 2275-08, 2132-01, 2283-12 #### [facility] ([id number]) [address] [place] [address] IRON PROFILEon 09-10-2023 Iron [Mass/Vol] 92 ug/dL Normal 50-[address] [facility] Comment on above: Performed By: #### C BCA, FEPR, 2275-08, 2132-01, 2283-12 #### [facility] ([id number]) [address] [place] [address] IRON BINDING 421 ug/dL Normal 250-[address] [facility] Comment on above: Performed By: #### C BCA, FEPR, 2275-08, 2132-01, 2283-12 #### [facility] ([id number]) [address] [place] [address] IRON SATURATION 22 % SATURATION Normal 15-50 [facility] Comment on above: Performed By: #### C BCA, FEPR, 2276-4, 2-9, 4-8 #### [facility] ([id number]) [address] [place] [address] VITAMIN B12on 09-10-2023 Cobalamin (Vitamin B12) [Mass/Vol] 195 pg/mL Normal 180-[address] [facility] Comment on above: Performed By: #### C BCA, FEPR, 2276-4, 2-9, 4-8 #### [facility] ([id number]) [address] [place] [address] [employer] ANITBODY TESTon 022 [employer] Antibodies <1.0 Normal [facility] Comment on above: Result Comment: Refe [...] 2014;52:90-100. 2. Luzmaria DUVAL et al. PNAS 2013;110(06);94129-82229. 3. Joo E et al. Neurology 2006;67:505-507. This test was developed and its performance characteristics determined by [employer]. It has not been cleared or approved by the Food and Drug Administration. Performed By: #### M USBALTAB #### [facility] [address] [place] [address] Dr. Evens Bowden ACETYLCHOLINE RECEPTOR AB AL OFILEon 11-10-2021 AChR Binding Abs, Serum <0.03 Normal 0.00-0.24 [facility] Comment on above: Result Comment: Nega tive: 0.00 - 0.24 Borderline: 0.25 - 0.40 Positive: >0.40 Performed By: #### P JULIA MURRAY UMICRO #### [facility] [address] [place] [address] Patria Mis AChR Blocking Abs, Serum 10 % Normal 0-25 [facility] Comment on above: Result Comment: Nega tive: 0 - 25 Borderline: 26 - 30 Positive: >30 Performed By: #### P JULIA MURRAY UMICRO #### [facility] [address] [place] [address] Patria Mis AChR Modulating Ab CANRGT Normal [facility] Comment on above: Result Comment: Test not performed. Unable to perform test due to current unavailability of reagents or discontinuation of test. Negative: <21 Equivocal: 21 - 25 Positive: >25 Effective March 25, 2021, test [id number] AChR Modulating Abs, Serum was made non-orderable due to an ongoing reagent issue. Specimens are stored frozen and can be referenced to [facility] to provide an AChR Modulating Ab result. Please contact [facility] Customer Service to add on [phone] Acetylcholine Receptor Modulating Antibody, if warranted. Performed By: #### P REGJULIA Lang UMICRO #### [facility] [address] [place], [place] [id number] Patria Mis LYME DISEASE AB EIA W REFLEX on 11-04-2021 Lyme Total Antibody,EIA Negative Normal Negative [facility] Comment on above: Result Comment: Lyme Antibody Negative No laboratory evidence of infection with B. burgdorferi (Lyme disease). Negative results may occur in patients recently infected (greater than or equal to 14 days) with B. burgdorferi. If recent infection is suspected, repeat testing on a new sample collected in 7 to 14 days is recommended. Performed By: #### P REGJULIA Lang, UMICRO #### [facility] [address] [address] Patria Abebe AMISHA EIA W/REFLEX 5 BIOMARKER Son 11-03-2021 AMISHA Direct Positive Abnormal Negative [facility] Comment on above: Performed By: #### JULIA GARCIA UMICRO #### [facility] [address] [address] Patria Abebe Anti-DNA (DS) Ab Qn <1 Normal 0-9 [facility] Comment on above: Result Comment: Nega tive <5 Equivocal 5 - 9 Positive >9 Performed By: #### JULIA GARCIA UMICRO #### [facility] [address] [address] Patria Abebe JEWELRY DESIGNER Antibodies 2.4 AI Critically high 0.0-0.9 [facility] Comment on above: Performed By: #### JULIA GARCIA UMICRO #### [facility] [address] [address] Patria Abebe SEE BELOW: Comment Normal [facility] Comment on above: Result Comment: Auto [...] Sm (anti-Hunter) SLE 15 - 30% --------- JEWELRY DESIGNER Mixed Connective Tissue Disease 95% (U1 nRNP, SLE 30 - 50% anti-ribonucleoprotein) Polymyositis and/or Dermatomyositis 20% --------- Scl-70 (antiDNA Scleroderma (diffuse) 20 - 35% topoisomerase) Crest 13% --------- Kristie-1 Polymyositis and/or Dermatomyositis 20 - 40% --------- Centromere B Scleroderma - Crest variant 80% Performed By: #### JULIA GARCIA UMICRO #### [facility] [address] [place] [address] Patria Mis Sjogren's Anti-SS-A <0.2 Normal 0.0-0.9 [facility] Comment on above: Performed By: #### JULIA GARCIA UMICRO #### [facility] [address] [place] [address] Patria Mis Sjogren's Anti-SS-B <0.2 Normal 0.0-0.9 [facility] Comment on above: Performed By: #### JULIA GARCIA UMICRO #### [facility] [address] [place] [address] Patria Mis Hunter Antibodies <0.2 Normal 0.0-0.9 [facility] Comment on above: Performed By: #### JULIA GARCIA UMICRO #### [facility] [address] [place] [address] Patria Abebe CMV AB, IGGon 11-03-2021 Cytomegalovirus (CMV) Ab, IgG 5.70 U/mL Critically high 0.00-0.59 [facility] Comment on above: Result Comment: Nega tive <0.60 Equivocal 0.60 - 0.69 Positive >0.69 Performed By: #### JULIA GARCIA UMICRO #### [facility] [address] [place] [address] Patria Abebe SHIRA-MOTA VIRUS (EBV) AB PROFILEon 11-03-2021 EBV Ab VCA, IgG 122.0 U/mL Critically high 0.0-17.9 [facility] Comment on above: Result Comment: Nega tive <18.0 Equivocal 18.0 - 21.9 Positive >21.9 Performed By: #### M ERIK #### [facility] [address] [place] [address] Dr. Evens Bowden EBV Ab VCA, IgM <36.0 Normal 0.0-35.9 [facility] Comment on above: Result Comment: Nega tive <36.0 Equivocal 36.0 - 43.9 Positive >43.9 Performed By: #### Hugo VALENCIA #### [facility] [address] [address] [address] Evens Bowden EBV Nuclear Antigen Ab, IgG 244.0 U/mL Critically high 0.0-17.9 [facility] Comment on above: Result Comment: Nega tive <18.0 Equivocal 18.0 - 21.9 Positive >21.9 Performed By: #### M ERIK #### [facility] [address] [address] [address] Evens Bowden Interpretation: Comment Normal [facility] Comment on above: Result Comment: EBV [...] EBNA. Performed By: #### Hugo VALENCIA #### [facility] [address] [place] [address] Dr. Evens Bowden RHEUMATOID FACTORon 11-04-19 22 RA Latex Turbid. <10.0 Normal <14.0 [facility] Comment on above: Performed By: #### Hugo VALENCIA #### [facility] [address] [place] [address] Dr. Evens Bowden CPKon 11-02-2021 CK [Catalytic activity/Vol] 150 U/L Normal 26-192 [facility] Comment on above: Performed By: #### C K #### [facility] [address] [place] [address] Dr. Evens Bowden MRI BRAIN WO W [...] SANDRA VERDIN Date: 2021-10-01 13:31 Normal [facility] CSPINE WO W CONon 2021 [...] SANDRA VERDIN Date: 2021-10-01 13:52 Normal [facility] INSULINon 09-11-2021 Insulin 5.2 uIU/mL Normal 2.6-24.9 [facility] Comment on above: Performed By: #### P REGU, ERUR, MINGORO #### [facility] [address] [address] Patria Abebe CBC AUTO DIFFon 09-10-2021 BASO # 0.0 103/ul Normal 0.0-0.1 [facility] Comment on above: Performed By: #### C BC #### [facility] [address] [address] [address] Evens Bowden Basophils/100 WBC (Bld) 0.7 % Normal 0.2-2.0 [facility] Comment on above: Performed By: #### C BC #### [facility] [address] [address] [address] Evens Bowden EO # 0.1 103/ul Normal 0.0-0.7 [facility] Comment on above: Performed By: #### C BC #### [facility] [address] [address] [address] Evens Bowden Eosinophils/100 WBC (Bld) 2.6 % Normal 0.9-7.0 [facility] Comment on above: Performed By: #### C BC #### [facility] [address] [address] [address] Evens Bowden Erythrocyte distribution width (RBC) [Ratio] 13.7 % Normal 11.0-15.0 [facility] Comment on above: Performed By: #### C BC #### [facility] [address] [address] [address] Evens Bowden Hematocrit (Bld) [Volume fraction] 33.2 % Critically low 36.0-48.0 [facility] Comment on above: Performed By: #### C BC #### [facility] [address] [address] [address] Evens Bowden Hemoglobin (Bld) [Mass/Vol] 10.4 g/dL Critically low 12.0-16.0 [facility] Comment on above: Performed By: #### C BC #### [facility] [address] [address] [address] Evens Bowden IG # 0.02 10e3/ul Normal 0.00-0.03 [facility] Comment on above: Performed By: #### C BC #### [facility] [address] [place] [address] Dr. Evens Bowden IG % 0.4 % Normal 0.0-0.5 [facility] Comment on above: Performed By: #### C BC #### [facility] [address] [place] [address] Dr. Evens Bowden LYMPH # 2.0 103/ul Normal 1.2-3.8 [facility] Comment on above: Performed By: #### C BC #### [facility] [address] [place] [address] Dr. Evens Bowden Lymphocytes/100 WBC (Bld) 37.7 % Normal 20.5-60.0 [facility] Comment on above: Performed By: #### C BC #### [facility] [address] [place] [address] Dr. Evens Bowden MANUAL DIFF REQ NO Normal [facility] Comment on above: Performed By: #### C BC #### [facility] [address] [place] [address] Dr. Evens Bowden MCH (RBC) [Entitic mass] 27.2 pg Normal 26.7-34.0 [facility] Comment on above: Performed By: #### C BC #### [facility] [address] [place] [address] Dr. Evens Bowden MCHC (RBC) [Mass/Vol] 31.3 g/dL Normal 29.9-35.2 [facility] Comment on above: Performed By: #### C BC #### [facility] [address] [place] [address] Dr. Evens Bowden MCV (RBC) [Entitic vol] 86.9 fL Normal 81.0-99.0 [facility] Comment on above: Performed By: #### C BC #### [facility] [address] [place] [address] Dr. Evens Bowden MONO # 0.4 103/ul Normal 0.3-0.8 [facility] Comment on above: Performed By: #### C BC #### [facility] [address] [place] [address] Dr. Evens Bowden Monocytes/100 WBC (Bld) 7.1 % Normal 1.7-12.0 [facility] Comment on above: Performed By: #### C BC #### [facility] [address] [address] [address] Evens Bowden NEUT # 2.8 103/ul Normal 1.4-6.5 [facility] Comment on above: Performed By: #### C BC #### [facility] [address] [place] [address] Dr. Evens Bowden Neutrophils/100 WBC (Bld) 51.5 % Normal 43.0-75.0 [facility] Comment on above: Performed By: #### C BC #### [facility] [address] [place] [address] Dr. Evens Bowden Platelet mean volume (Bld) [Entitic vol] 8.6 fL Critically low 9.5-13.5 [facility] Comment on above: Performed By: #### C BC #### [facility] [address] [place] [address] Dr. Evens Bowden PLT 428 103/ul Normal 150-450 [facility] Comment on above: Performed By: #### C BC #### [facility] [address] [place] [address] Dr. Evens Bowden RBC 3.82 106/ul Critically low 4.20-5.40 [facility] Comment on above: Performed By: #### C BC #### [facility] [address] [place] [address] Dr. Evens Bowden WBC 5.4 103/ul Normal 4.0-11.0 [facility] Comment on above: Performed By: #### C BC #### [facility] [address] [place] [address] Dr. Evens Bowden CRPon 09-10-2021 CRP [Mass/Vol] mg/L Normal <=1.0 [facility] Comment on above: Performed By: #### C BC #### [facility] [address] [address] [address] Evens Bowden FREE THYROXINE INDEX T7on FTI 2.52 Normal [facility] Comment on above: Performed By: #### C BC #### [facility] [address] [address] [address] Evens Bowden T3U 35.0 % Normal 23.5-40.5 [facility] Comment on above: Performed By: #### C BC #### [facility] [address] [address] [address] Evens Bowden T4 [Mass/Vol] 7.20 ug/dL Normal 5.53-11.00 [facility] Comment on above: Performed By: #### C BC #### [facility] [address] [address] [address] Evens Bowden GLYCOHEMOGLOBIN A1Con 2021 ADA RECOMMENDATION ADA THERAPEUTIC TARG ET 6.0 - 7.0 ACTION SUGGESTED > 7.0 Normal [facility] Comment on above: Performed By: #### P REGU, ERUR, UMICRO #### [facility] [address] [address] Patria Abebe Glucose [Mass/Vol] 117 mg/dL Normal [facility] Comment on above: Performed By: #### P REGU, ERUR, UMICRO #### [facility] [address] [address] Patria Abebe HbA1c (Bld) [Mass fraction] 5.7 % Normal <=6.0 [facility] Comment on above: Performed By: #### P REGU, ERUR, UMICRO #### [facility] [address] [address] Patria Escobaren IRONon 09-10-2021 Iron [Mass/Vol] 46.0 ug/dL Normal 37.0-170.0 [facility] Comment on above: Performed By: #### MULUGETA HAYNES #### [facility] [address] [address] [address] Evens Bowden LIPID PROFILEon 09-10-2021 CHOL-HDL RATIO NORM SEE BELOW Normal [facility] Comment on above: Result Comment: 3.3 - 4.4 LOW RISK 4.4 - 7.1 AVERAGE RISK 7.1 - 11.0 MODERATE RISK >11.0 HIGH RISK Performed By: #### C MP, TSH, T7, LIPID, CRP #### [facility] [address] [place] [address] Dr. Evens Bowden Cholesterol [Mass/Vol] 130 mg/dL Normal <=200 [facility] Comment on above: Performed By: #### C MP, TSH, T7, LIPID, CRP #### [facility] [address] [place] [address] Dr. Evens Bowden Cholesterol in HDL [Mass/Vol] 53 mg/dL Normal 40-60 [facility] Comment on above: Performed By: #### C MP, TSH, T7, LIPID, CRP #### [facility] [address] [place] [address] Dr. Evens Bowden Cholesterol in LDL [Mass/Vol] 69.2 mg/dL Normal [facility] Comment on above: Performed By: #### C MP, TSH, T7, LIPID, CRP #### [facility] [address] [place] [address] Dr. Evens Bowden Cholesterol.total/Vianey sterol in HDL [Mass ratio] 2.5 {ratio} Normal [facility] [facility] Comment on above: Performed By: #### C MP, TSH, T7, LIPID, CRP #### [facility] [address] [place] [address] Dr. Evens Bowden HDL NORMAL > or = 60 mg/dl - LO W CARDIOVASCULAR RISK <40 mg/dl - HIGH CARDIOVASCULAR RISK Normal [facility] Comment on above: Performed By: #### C MP, TSH, T7, LIPID, CRP #### [facility] [address] [place] [address] Dr. Evens Bowden LDL CALC NORMAL SEE BELOW Normal [facility] Comment on above: Result Comment: <100 mg/dl OPTIMAL 100 - 129 mg/dl NEAR OR ABOVE OPTIMAL 130 - 159 mg/dl BORDERLINE HIGH 160 - 189 mg/dl HIGH >190 mg/dl VERY HIGH Performed By: #### C MP, TSH, T7, LIPID, CRP #### [facility] [address] [address] [address] Evens Bowden Triglyceride [Mass/Vol] 39 mg/dL Normal <=150 [facility] Comment on above: Performed By: #### C MP, TSH, T7, LIPID, CRP #### [facility] [address] [address] [address] Evens Bowden VLDL CALC 7.8 mg/dL Normal [facility] Comment on above: Performed By: #### C MP, TSH, T7, LIPID, CRP #### [facility] [address] [address] [address] Evens Bowden PROF 14(COMP METB)on 022 Albumin [Mass/Vol] 4.0 g/dL Normal 3.4-5.0 [facility] Comment on above: Performed By: #### C MP, TSH, T7, LIPID, CRP #### [facility] [address] [place] [address] Dr. Evens Bowden Albumin/Globulin [Mass ratio] 1.1 {ratio} Normal [facility] Comment on above: Performed By: #### C MP, TSH, T7, LIPID, CRP #### [facility] [address] [place] [address] Dr. Evens Bowden ALP [Catalytic activity/Vol] 84 U/L Normal 46-116 [facility] Comment on above: Performed By: #### C MP, TSH, T7, LIPID, CRP #### [facility] [address] [place] [address] Dr. Evens Bowden ALT [Catalytic activity/Vol] 33 U/L Normal 14-59 [facility] Comment on above: Performed By: #### C MP, TSH, T7, LIPID, CRP #### [facility] [address] [place] [address] Dr. Evens Bowden Anion gap [Moles/Vol] 12.1 mmol/L Normal [facility] Comment on above: Performed By: #### C MP, TSH, T7, LIPID, CRP #### [facility] [address] [address] [address] Evens Bowden AST [Catalytic activity/Vol] 18 U/L Normal 15-37 [facility] Comment on above: Performed By: #### C MP, TSH, T7, LIPID, CRP #### [facility] [address] [address] [address] Evens Bowden Bilirubin [Mass/Vol] 0.5 mg/dL Normal 0.2-1.3 [facility] Comment on above: Performed By: #### C MP, TSH, T7, LIPID, CRP #### [facility] [address] [address] [address] Evens Bowden Calcium [Mass/Vol] 8.2 mg/dL Critically low 8.5-10.1 [facility] Comment on above: Performed By: #### C MP, TSH, T7, LIPID, CRP #### [facility] [address] [place] [address] Dr. Evens Bowden Chloride [Moles/Vol] 105 mmol/L Normal 98-107 [facility] Comment on above: Performed By: #### C MP, TSH, T7, LIPID, CRP #### [facility] [address] [address] [address] Evens Bowden CO2 [Moles/Vol] 26.3 mmol/L Normal 22.0-30.0 [facility] Comment on above: Performed By: #### C MP, TSH, T7, LIPID, CRP #### [facility] [address] [place] [address] Dr. Evens Bowden Creatinine [Mass/Vol] 0.62 mg/dL Normal 0.52-1.04 [facility] Comment on above: Performed By: #### C MP, TSH, T7, LIPID, CRP #### [facility] [address] [place] [address] Dr. Evens Bowden EGFR-AF NICARAGUAN >60 Normal >=60 [facility] Comment on above: Performed By: #### C MP, TSH, T7, LIPID, CRP #### [facility] [address] [place] [address] Dr. Evens Bowden EGFR-NON AF NICARAGUAN >60 Normal >=60 [facility] Comment on above: Performed By: #### C MP, TSH, T7, LIPID, CRP #### [facility] [address] [place] [address] Dr. Evens Bowden Globulin (S) [Mass/Vol] 3.5 g/dL Normal T [facility] Comment on above: Performed By: #### C MP, TSH, T7, LIPID, CRP #### [facility] [address] [address] [address] Evens Bowden Glucose [Mass/Vol] 90 mg/dL Normal 74-106 [facility] Comment on above: Performed By: #### C MP, TSH, T7, LIPID, CRP #### [facility] [address] [place] [address] Dr. Evens Bowden Potassium [Moles/Vol] 4.4 mmol/L Normal 3.4-5.0 [facility] Comment on above: Performed By: #### C MP, TSH, T7, LIPID, CRP #### [facility] [address] [place] [address] Dr. Evens Bowden Protein [Mass/Vol] 7.5 g/dL Normal 6.1-8.2 [facility] Comment on above: Performed By: #### C MP, TSH, T7, LIPID, CRP #### [facility] [address] [place] [address] Dr. Evens Bowden Sodium [Moles/Vol] 139 mmol/L Normal 137-145 [facility] Comment on above: Performed By: #### C MP, TSH, T7, LIPID, CRP #### [facility] [address] [place] [address] Dr. Evens Bowden Urea nitrogen [Mass/Vol] 7.0 mg/dL Normal 7.0-18.0 [facility] Comment on above: Performed By: #### C MP, TSH, T7, LIPID, CRP #### [facility] [address] [place] [address] Dr. Evens Bowden Urea nitrogen/Creatinine [Mass ratio] 11.3 mg/mg Normal [facility] Comment on above: Performed By: #### C MP, TSH, T7, LIPID, CRP #### [facility] [address] [address] [address] Evens Bowden SED RATE WESTERGRENon 2021 SED RATE 6 mm/hr Normal <=20 [facility] Comment on above: Performed By: #### M USKAB #### [facility] [address] [place] [address] Dr. Evens Bowden TSHon 09-10-2021 TSH 1.205 uIU/mL Normal 0.470-4.680 [facility] Comment on above: Performed By: #### C BC #### [facility] [address] [place] [address] Dr. Evens Bowden TSH RANGE SEE BELOW Normal [facility] Comment on above: Result Comment: <0.3 4 UIU/ml HYPERTHYROID 0.34-5.60 UIU/ml EUTHYROID >5.60 UIU/ml HYPOTHYROID Performed By: #### C BC #### [facility] [address] [place] [address] Dr. Evens Bowden VITAMIN D 25 OHon 09-10-2021 VIT D 25-OH 11.5 ng/mL Normal [facility] Comment on above: Performed By: #### I MICHEL VITAD #### [facility] [address] [place] [address] Dr. Evens Bowden VIT D RANGES SEE BELOW Normal [facility] Comment on above: Result Comment: <20 ng/mL Vit D deficient 20 - <30 ng/mL Vit D insufficient 30 - 100 ng/mL Vit D sufficient >100 ng/mL Potential Toxicity Performed By: #### I MICHEL VITAD #### [facility] [address] [place] [address] Dr. Evens Bowden VITAMIN B1 (THIAMINE)on 02-27 Vit. B1, Whole Blood 85.1 nmol/L Normal 66.5-200.0 [facility] Comment on above: Performed By: #### C BC #### [facility] [address] [place] [address] Dr. Evens Bowden CBC AUTO DIFFon 03-10-2021 BASO # 0.0 103/ul Normal 0.0-0.1 [facility] Comment on above: Performed By: #### M ERIK #### [facility] [address] [place] [address] Dr. Evens Bowden Basophils/100 WBC (Bld) 0.8 % Normal 0.2-2.0 [facility] Comment on above: Performed By: #### M MASOODB #### [facility] [address] [address] [address] Evens Bowden EO # 0.2 103/ul Normal 0.0-0.7 [facility] Comment on above: Performed By: #### M ERIK #### [facility] [address] [place] [address] Dr. Evens Bowden Eosinophils/100 WBC (Bld) 3.4 % Normal 0.9-7.0 [facility] Comment on above: Performed By: #### M ERIK #### [facility] [address] [place] [address] Dr. Evens Bowden Erythrocyte distribution width (RBC) [Ratio] 13.2 % Normal 11.0-15.0 [facility] Comment on above: Performed By: #### M ERIK #### [facility] [address] [place] [address] Dr. Evens Bowden Hematocrit (Bld) [Volume fraction] 34.2 % Critically low 36.0-48.0 [facility] Comment on above: Performed By: #### M MASOODB #### [facility] [address] [place] [address] Dr. Evens Bowdne Hemoglobin (Bld) [Mass/Vol] 11.2 g/dL Critically low 12.0-16.0 [facility] Comment on above: Performed By: #### M MASOODB #### [facility] [address] [place] [address] Dr. Evens Bowden IG # 0.01 10e3/ul Normal 0.00-0.03 [facility] Comment on above: Performed By: #### M USKAB #### [facility] [address] [address] [address] Evens Bowden IG % 0.2 % Normal 0.0-0.5 [facility] Comment on above: Performed By: #### M MASOODB #### [facility] [address] [address] [address] Evens Bowden LYMPH # 1.6 103/ul Normal 1.2-3.8 [facility] Comment on above: Performed By: #### M MASOODB #### [facility] [address] [address] [address] Evens Bowden Lymphocytes/100 WBC (Bld) 32.5 % Normal 20.5-60.0 [facility] Comment on above: Performed By: #### M MASOODB #### [facility] [address] [place] [address] Dr. Evens Bowden MANUAL DIFF REQ NO Normal [facility] Comment on above: Performed By: #### M MASOODB #### [facility] [address] [place] [address] Dr. Evens Bowden MCH (RBC) [Entitic mass] 30.6 pg Normal 26.7-34.0 [facility] Comment on above: Performed By: #### M MASOODB #### [facility] [address] [place] [address] Dr. Evens Bowden MCHC (RBC) [Mass/Vol] 32.7 g/dL Normal 29.9-35.2 [facility] Comment on above: Performed By: #### M MASOODB #### [facility] [address] [place] [address] Dr. Evens Bowden MCV (RBC) [Entitic vol] 93.4 fL Normal 81.0-99.0 [facility] Comment on above: Performed By: #### M MASOODB #### [facility] [address] [place] [address] Dr. Evens Bowden MONO # 0.5 103/ul Normal 0.3-0.8 [facility] Comment on above: Performed By: #### M USKAB #### [facility] [address] [address] [address] Evens Bowden Monocytes/100 WBC (Bld) 10.7 % Normal 1.7-12.0 [facility] Comment on above: Performed By: #### M KAB #### [facility] [address] [address] [address] Evens Bowden NEUT # 2.6 103/ul Normal 1.4-6.5 [facility] Comment on above: Performed By: #### M USKAB #### [facility] [address] [address] [address] Evens Bowden Neutrophils/100 WBC (Bld) 52.4 % Normal 43.0-75.0 [facility] Comment on above: Performed By: #### M MASOODB #### [facility] [address] [place] [address] Dr. Evens Bowden Platelet mean volume (Bld) [Entitic vol] 9.3 fL Critically low 9.5-13.5 [facility] Comment on above: Performed By: #### M MASOODB #### [facility] [address] [address] [address] Evens Bowden PLT 373 103/ul Normal 150-450 [facility] Comment on above: Performed By: #### M MASOODB #### [facility] [address] [place] [address] Dr. Evens Bowden RBC 3.66 106/ul Critically low 4.20-5.40 [facility] Comment on above: Performed By: #### M USKAB #### [facility] [address] [place] [address] Dr. Evens Bowden WBC 5.0 103/ul Normal 4.0-11.0 [facility] Comment on above: Performed By: #### M USKAB #### [facility] [address] [place] [address] Dr. Evens Bowden FOLATEon 03-10-2021 FOLATE 7.50 ng/mL Normal >=2.76 [facility] Comment on above: Performed By: #### P REGSHOSHANA LangR UMICRO #### [facility] [address] [place] [address] Patria Mis IRON AND TIBCon 03-10-2021 % SATURATION 8.7 % Normal [facility] Comment on above: Performed By: #### P REGSHOSHANA LangR UMICRO #### [facility] [address] [place] [address] Patria Mis Iron [Mass/Vol] 29.0 ug/dL Critically low 37.0-170.0 [facility] Comment on above: Performed By: #### P REGSHOSHANA LangR UMICRO #### [facility] [address] [place] [address] Patria Mis TIBC DIRECT 332.0 ug/dL Normal 261.0-497.0 [facility] Comment on above: Performed By: #### P JULIA MURRAY UMICRO #### [facility] [address] [place] [address] Patria Abebe MAGNESIUMon 03-10-2021 Magnesium [Mass/Vol] 1.7 mg/dL Normal 1.6-2.3 [facility] Comment on above: Performed By: #### C BC #### [facility] [address] [place] [address] Dr. Evens Bowden PHOSPHORUSon 03-10-2021 Phosphate [Mass/Vol] 3.7 mg/dL Normal 2.5-4.5 [facility] Comment on above: Performed By: #### C BC #### [facility] [address] [place] [address] Dr. Evens Bowden PROF 14(COMP METB)on 021 Albumin [Mass/Vol] 3.6 g/dL Normal 3.5-5.0 [facility] Comment on above: Performed By: #### C BC #### [facility] [address] [place] [address] Dr. Eevns Bowden Albumin/Globulin [Mass ratio] 1.1 {ratio} Normal [facility] Comment on above: Performed By: #### C BC #### [facility] [address] [place] [address] Dr. Evens Bowden ALP [Catalytic activity/Vol] 91 U/L Normal 38-126 [facility] Comment on above: Performed By: #### C BC #### [facility] [address] [place] [address] Dr. Evens Bowden ALT [Catalytic activity/Vol] 31 U/L Normal 9-52 [facility] Comment on above: Performed By: #### C BC #### [facility] [address] [place] [address] Dr. Evens Bowden Anion gap [Moles/Vol] 12.5 mmol/L Normal [facility] Comment on above: Performed By: #### C BC #### [facility] [address] [place] [address] Dr. Evens Bowden AST [Catalytic activity/Vol] 22 U/L Normal 14-36 [facility] Comment on above: Performed By: #### C BC #### [facility] [address] [place] [address] Dr. Evens Bowden Bilirubin [Mass/Vol] 0.4 mg/dL Normal 0.2-1.3 [facility] Comment on above: Performed By: #### C BC #### [facility] [address] [place] [address] Dr. Evens Bowden Calcium [Mass/Vol] 8.2 mg/dL Critically low 8.4-10.2 [facility] Comment on above: Performed By: #### C BC #### [facility] [address] [place] [address] Dr. Evens Bowden Chloride [Moles/Vol] 106 mmol/L Normal 98-107 [facility] Comment on above: Performed By: #### C BC #### [facility] [address] [place] [address] Dr. Evens Bowden CO2 [Moles/Vol] 26.3 mmol/L Normal 22.0-30.0 [facility] Comment on above: Performed By: #### C BC #### [facility] [address] [place] [address] Dr. Evens Bowden Creatinine [Mass/Vol] 0.57 mg/dL Normal 0.52-1.04 [facility] Comment on above: Performed By: #### C BC #### [facility] [address] [address] [address] Evens Bowden EGFR-AF NICARAGUAN >60 Normal >=60 [facility] Comment on above: Performed By: #### C BC #### [facility] [address] [address] [address] Evens Bowden EGFR-NON AF NICARAGUAN >60 Normal >=60 [facility] Comment on above: Performed By: #### C BC #### [facility] [address] [address] [address] Evens Bowden Globulin (S) [Mass/Vol] 3.4 g/dL Normal T [facility] Comment on above: Performed By: #### C BC #### [facility] [address] [address] [address] Evens Bowden Glucose [Mass/Vol] 92 mg/dL Normal 74-106 [facility] Comment on above: Performed By: #### C BC #### [facility] [address] [address] [address] Evens Bowden Potassium [Moles/Vol] 3.8 mmol/L Normal 3.4-5.0 [facility] Comment on above: Performed By: #### C BC #### [facility] [address] [address] [address] Evens Bowden Protein [Mass/Vol] 7.0 g/dL Normal 6.1-8.2 [facility] Comment on above: Performed By: #### C BC #### [facility] [address] [address] [address] Evens Bowden Sodium [Moles/Vol] 141 mmol/L Normal 137-145 [facility] Comment on above: Performed By: #### C BC #### [facility] [address] [address] [address] Evens Bowden Urea nitrogen [Mass/Vol] 7.0 mg/dL Normal 7.0-17.0 [facility] Comment on above: Performed By: #### C BC #### [facility] [address] [place] [address] Dr. Evens Bowden Urea nitrogen/Creatinine [Mass ratio] 12.3 mg/mg Normal [facility] Comment on above: Performed By: #### C BC #### [facility] [address] [place] [address] Dr. Evens Bowden VITAMIN B12on 03-10-2021 Cobalamin (Vitamin B12) [Mass/Vol] 211.0 pg/mL Critically low 239.0-931.0 [facility] Comment on above: Performed By: #### P JULIA MURRAY UMICRO #### [facility] [address] [place] [address] Patria Mis VITAMIN D 25 OHon 03-10-2021 VIT D 25-OH 15.8 ng/mL Normal [facility] Comment on above: Performed By: #### JULIA GARCIA UMICRO #### [facility] [address] [place] [address] Patria Mis VIT D RANGES SEE BELOW Normal [facility] Comment on above: Result Comment: <20 ng/mL Vit D deficient 20 - <30 ng/mL Vit D insufficient 30 - 100 ng/mL Vit D sufficient >100 ng/mL Potential Toxicity Performed By: #### P JULIA MURRAY UMICRO #### [facility] [address] [place] [address] Patria Mis VITAMIN D 25 OHon 02-10-2021 VIT D 25-OH 16.7 ng/mL Normal [facility] Comment on above: Performed By: #### M MASOODB #### [facility] [address] [place] [address] Dr. Evens Bowden VIT D RANGES SEE BELOW Normal [facility] Comment on above: Result Comment: <20 ng/mL Vit D deficient 20 - <30 ng/mL Vit D insufficient 30 - 100 ng/mL Vit D sufficient >100 ng/mL Potential Toxicity Performed By: #### M MASOODB #### [facility] [address] [place] [address] Dr. Evens Bowden CBC AUTO DIFFon 01-02-2021 BASO # 0.1 103/ul Normal 0.0-0.1 [facility] Comment on above: Performed By: #### C BC #### [facility] [address] [place] [address] Dr. Evens Bowden Basophils/100 WBC (Bld) 0.5 % Normal 0.2-2.0 [facility] Comment on above: Performed By: #### C BC #### [facility] [address] [place] [address] Dr. Evens Bowden EO # 0.0 103/ul Normal 0.0-0.7 [facility] Comment on above: Performed By: #### C BC #### [facility] [address] [place] [address] Dr. Evens Bowden Eosinophils/100 WBC (Bld) 0.4 % Critically low 0.9-7.0 [facility] Comment on above: Performed By: #### C BC #### [facility] [address] [place] [address] Dr. Evens Bowden Erythrocyte distribution width (RBC) [Ratio] 13.2 % Normal 11.0-15.0 [facility] Comment on above: Performed By: #### C BC #### [facility] [address] [place] [address] Dr. Evens Bowden Hematocrit (Bld) [Volume fraction] 35.3 % Critically low 36.0-48.0 [facility] Comment on above: Performed By: #### C BC #### [facility] [address] [place] [address] Dr. Evens Bowden Hemoglobin (Bld) [Mass/Vol] 11.6 g/dL Critically low 12.0-16.0 [facility] Comment on above: Performed By: #### C BC #### [facility] [address] [place] [address] Dr. Evens Bowden IG # 0.02 10e3/ul Normal 0.00-0.03 [facility] Comment on above: Performed By: #### C BC #### [facility] [address] [place] [address] Dr. Evens Bowden IG % 0.2 % Normal 0.0-0.5 [facility] Comment on above: Performed By: #### C BC #### [facility] [address] [place] [address] Dr. Evens Bowden LYMPH # 1.1 103/ul Critically low 1.2-3.8 [facility] Comment on above: Performed By: #### C BC #### [facility] [address] [place] [address] Dr. Evens Bowden Lymphocytes/100 WBC (Bld) 11.0 % Critically low 20.5-60.0 [facility] Comment on above: Performed By: #### C BC #### [facility] [address] [place] [address] Dr. Evens Bowden MANUAL DIFF REQ NO Normal [facility] Comment on above: Performed By: #### C BC #### [facility] [address] [place] [address] Dr. Evens Bowden MCH (RBC) [Entitic mass] 30.5 pg Normal 26.7-34.0 [facility] Comment on above: Performed By: #### C BC #### [facility] [address] [place] [address] Dr. Evens Bowden MCHC (RBC) [Mass/Vol] 32.9 g/dL Normal 29.9-35.2 [facility] Comment on above: Performed By: #### C BC #### [facility] [address] [place] [address] Dr. Evens Bowden MCV (RBC) [Entitic vol] 92.9 fL Normal 81.0-99.0 [facility] Comment on above: Performed By: #### C BC #### [facility] [address] [place] [address] Dr. Evens Bowden MONO # 0.6 103/ul Normal 0.3-0.8 [facility] Comment on above: Performed By: #### C BC #### [facility] [address] [place] [address] Dr. Evens Bowden Monocytes/100 WBC (Bld) 6.2 % Normal 1.7-12.0 [facility] Comment on above: Performed By: #### C BC #### [facility] [address] [place] [address] Dr. Evens Bowden NEUT # 8.4 103/ul Critically high 1.4-6.5 [facility] Comment on above: Performed By: #### C BC #### [facility] [address] [place] [address] Dr. Evens Bowden Neutrophils/100 WBC (Bld) 81.7 % Critically high 43.0-75.0 [facility] Comment on above: Performed By: #### C BC #### [facility] [address] [place] [address] Dr. Evens Bowden Platelet mean volume (Bld) [Entitic vol] 10.0 fL Normal 9.5-13.5 [facility] Comment on above: Performed By: #### C BC #### [facility] [address] [place] [address] Dr. Evens Bowden PLT 317 103/ul Normal 150-450 [facility] Comment on above: Performed By: #### C BC #### [facility] [address] [place] [address] Dr. Evens Bowden RBC 3.80 106/ul Critically low 4.20-5.40 [facility] Comment on above: Performed By: #### C BC #### [facility] [address] [place] [address] Dr. Evens Bowden WBC 10.2 103/ul Normal 4.0-11.0 [facility] Comment on above: Performed By: #### C BC #### [facility] [address] [place] [address] ABD/PELVIS WO CONon [...] AUDREY ROWE Date: 2021-01-02 10:13 Normal The [facility] CULTURE URINEon 01-02-2021 CULTURE URINE Culture Observations : MODERATE GROWTH OF MIXED GENITAL SHEYLA. NO POTENTIAL PATHOGENS SEEN. Normal The [facility] Comment on above: Performed By: #### M USKAB #### [facility] [address] [place] [address] Dr. Evens MENDOZA URINE PROFILEon 1 Bilirubin Ql (U) SMALL Abnormal NEGATIVE The [facility] Comment on above: Performed By: #### P REGU ERUR, UMICRO #### [facility] [address] [address] Patria Mis Clarity (U) SL CLOUDY Abnormal CLEAR [facility] Comment on above: Performed By: #### P REGU, ERUR, UMICRO #### [facility] [address] [address] Patria Mis Color (U) YELLOW Normal YELLOW [facility] Comment on above: Performed By: #### P REGU, ERUR, UMICRO #### [facility] [address] [place] [address] Patriakarol Escobarguera TESFAYE A micrscopic examination will be performed if indicated. Normal [facility] Comment on above: Performed By: #### P REGSHOSHANA LangR UMICRO #### [facility] [address] [place] [address] Patria Mis Glucose Ql (U) Negative Normal NEGATIVE [facility] Comment on above: Performed By: #### P REGJULIA Lang UMICRO #### [facility] [address] [place] [address] Patria Mis Hemoglobin Ql (U) TRACE-LYSED Abnormal NEGATIVE The [facility] Comment on above: Performed By: #### JULIA GARCIA UMICRO #### [facility] [address] [place] [address] Patria Mis Ketones Ql (U) 40 mg/dl Abnormal NEGATIVE [facility] Comment on above: Performed By: #### P REGJULIA Lang UMICRO #### [facility] [address] [place] [address] Patria Mis LEUKOCYTES Negative Normal NEGATIVE [facility] Comment on above: Performed By: #### JULIA GARCIA UMICRO #### [facility] [address] [place] [address] Patria Mis Nitrite Ql (U) Negative Normal NEGATIVE [facility] Comment on above: Performed By: #### P JULIA MURRAY UMICRO #### [facility] [address] [place] [address] Patria Mis pH (U) 6.0 [pH] Normal 5-9 [facility] Comment on above: Performed By: #### P REGJULIA Lang UMICRO #### [facility] [address] [place] [address] Patria Mis SPEC GRAVITY >=1.030 Abnormal 1.005-<=1.0 25 [facility] Comment on above: Performed By: #### P REGU, ERUR, UMICRO #### [facility] [address] [address] Patria Abebe UA PROTEIN Negative Normal NEGATIVE/ TRACE [facility] Comment on above: Performed By: #### P JULIA MURRAY UMICRO #### [facility] [address] [address] Patria Abebe UR MICRO IND INDICATED Normal [facility] Comment on above: Performed By: #### P JULIA MURRAY UMICRO #### [facility] [address] [place] [address] Patria Abebe Urobilinogen Qn (U) 4 {Johnnie'U}/dL Abnormal 0.2 - 1.0 [facility] Comment on above: Performed By: #### JULIA GARCIA UMICRO #### [facility] [address] [place] [address] Patria Abebe LIPASEon 01-02-2021 Lipase [Catalytic activity/Vol] 64.0 U/L Normal 23.0-300.0 [facility] Comment on above: Performed By: #### C BC #### [facility] [address] [place] [address] Dr. Evens Bowden URon 01-02-2021 , QUAL Negative Normal NEGATIVE [facility] Comment on above: Performed By: #### JULIA GARCIA UMICRO #### [facility] [address] [place], [place] [id number] Patria Abebe PROF 14(COMP METB)on 021 Albumin [Mass/Vol] 4.2 g/dL Normal 3.5-5.0 [facility] Comment on above: Performed By: #### C BC #### [facility] [address] [place] [address] Dr. Evens Bowden Albumin/Globulin [Mass ratio] 1.1 {ratio} Normal [facility] Comment on above: Performed By: #### C BC #### [facility] [address] [address] [address] Evens Bowden ALP [Catalytic activity/Vol] 100 U/L Normal 38-126 [facility] Comment on above: Performed By: #### C BC #### [facility] [address] [address] [address] Evens Bowden ALT [Catalytic activity/Vol] 41 U/L Normal 9-52 [facility] Comment on above: Performed By: #### C BC #### [facility] [address] [address] [address] Evens Bowden Anion gap [Moles/Vol] 14.4 mmol/L Normal Th [facility] Comment on above: Performed By: #### C BC #### [facility] [address] [address] [address] Evens Bowden AST [Catalytic activity/Vol] 30 U/L Normal 14-36 [facility] Comment on above: Performed By: #### C BC #### [facility] [address] [place] [address] Dr. Evens Bowden Bilirubin [Mass/Vol] 0.5 mg/dL Normal 0.2-1.3 [facility] Comment on above: Performed By: #### C BC #### [facility] [address] [place] [address] Dr. Evens Bowden Calcium [Mass/Vol] 9.0 mg/dL Normal 8.4-10.2 [facility] Comment on above: Performed By: #### C BC #### [facility] [address] [place] [address] Dr. Evens Bowden Chloride [Moles/Vol] 106 mmol/L Normal 98-107 [facility] Comment on above: Performed By: #### C BC #### [facility] [address] [address] [address] Evens Bowden CO2 [Moles/Vol] 26.3 mmol/L Normal 22.0-30.0 [facility] Comment on above: Performed By: #### C BC #### [facility] [address] [place] [address] Dr. Evens Bowden Creatinine [Mass/Vol] 0.74 mg/dL Normal 0.52-1.04 [facility] Comment on above: Performed By: #### C BC #### [facility] [address] [address] [address] Evens Bowden EGFR-AF NICARAGUAN >60 Normal >=60 [facility] Comment on above: Performed By: #### C BC #### [facility] [address] [address] [address] Evens Bowden EGFR-NON AF NICARAGUAN >60 Normal >=60 [facility] Comment on above: Performed By: #### C BC #### [facility] [address] [address] [address] Evens Bowden Globulin (S) [Mass/Vol] 3.7 g/dL Normal [facility] Comment on above: Performed By: #### C BC #### [facility] [address] [place] [address] Dr. Evens Bowden Glucose [Mass/Vol] 112 mg/dL Critically high 74-106 [facility] Comment on above: Performed By: #### C BC #### [facility] [address] [place] [address] Dr. Evens Bowden Potassium [Moles/Vol] 3.7 mmol/L Normal 3.4-5.0 [facility] Comment on above: Performed By: #### C BC #### [facility] [address] [place] [address] Dr. Evens Bowden Protein [Mass/Vol] 7.9 g/dL Normal 6.1-8.2 [facility] Comment on above: Performed By: #### C BC #### [facility] [address] [place] [address] Dr. Evens Bowden Sodium [Moles/Vol] 143 mmol/L Normal 137-145 [facility] Comment on above: Performed By: #### C BC #### [facility] [address] [place] [address] Dr. Evens Bowden Urea nitrogen [Mass/Vol] 10.0 mg/dL Normal 7.0-17.0 [facility] Comment on above: Performed By: #### C BC #### [facility] [address] [place] [address] Dr. Evens Bowden Urea nitrogen/Creatinine [Mass ratio] 13.5 mg/mg Normal [facility] Comment on above: Performed By: #### C BC #### [facility] [address] [place] [address] Dr. Evens Bowden URINE MICROSCOPIC ONLYon BACTERIA MODERATE Abnormal NONE SEEN The [facility] Comment on above: Performed By: #### P REGU, ERUR, UMICRO #### [facility] [address] [place] [address] Patria Mis Bacteria identified Cx Nom (U) INDICATED Normal [facility] Comment on above: Performed By: #### P REGU, ERUR, UMICRO #### [facility] [address] [place] [address] Patria Mis CAST NONE SEEN Normal NONE SEEN [facility] Comment on above: Performed By: #### P REGU, ERUR, UMICRO #### [facility] [address] [place] [address] Patria Mis Crystals LM Nom (Urine sed) NONE SEEN Normal NONE SEEN [facility] Comment on above: Performed By: #### P REGU, ERUR, UMICRO #### [facility] [address] [place] [address] Patria Mis Epithelial cells LM Ql (Urine sed) FEW Abnormal NONE SEEN /RARE [facility] Comment on above: Performed By: #### P REGU, ERUR, UMICRO #### [facility] [address] [place] [address] Patria Mis MUCOUS TRACE Abnormal NONE SEEN The [facility] Comment on above: Performed By: #### P REGU, ERUR, UMICRO #### [facility] [address] [place] [address] Patria Mis RBC 0-2 Normal 0-2 [facility] Comment on above: Performed By: #### P REGU, ERUR, UMICRO #### [facility] [address] [place] [address] Patria Mis WBC 0-2 Abnormal NONE SEEN The [facility] Comment on above: Performed By: #### P JULIA MURRAY UMICRO #### [facility] [address] [address] Patria Abebe MRI KNEE RT WO CONon [...] by: ALISON TONEY Date: 2020-12-08 16:25 Normal [facility] CBC and Differentialon 03-10 Abs Baso 0.03 k/uL Normal <0.11 [facility] Abs Elliott 0.81 k/uL Normal <0.87 [facility] Abs Neut 2.94 k/uL Normal 1.45-7.50 [facility] Absolute nRBC <0.01 Normal <0.01 [facility] Basophils/100 WBC Auto (Bld) 0.5 % Normal [facility] DTYPE Auto Diff Normal [facility] Eosinophils Auto #/vol (Bld) 0.27 10*3/uL Normal <0.46 [facility] Eosinophils/100 WBC Auto (Bld) 4.6 % Normal [facility] Erythrocyte distribution width Auto Ratio (RBC) 12.7 % Normal 11.5-15.0 [facility] Hematocrit Auto Volume Fraction (Bld) 36.0 % Normal 36.0-46.0 [facility] Hemoglobin mass conc (Bld) 12.1 g/dL Normal 11.5-15.5 [facility] Lymphocytes Auto #/vol (Bld) 1.88 10*3/uL Normal 1.00-4.00 [facility] Lymphocytes/100 WBC Auto (Bld) 31.7 % Normal [facility] MCH Auto Entitic mass (RBC) 30.6 pG Normal 26.0-34.0 [facility] MCHC Auto mass conc (RBC) 33.6 g/dL Normal 30.5-36.0 [facility] MCV Auto Entitic volume (RBC) 91.1 fL Normal 80.0-100.0 [facility] Monocytes/100 WBC Auto (Bld) 13.7 % Normal [facility] Neutrophils/100 WBC Auto (Bld) 49.5 % Normal [facility] NRBCs 0.0 /100 WBC Normal 0 [facility] Platelet mean volume Auto Entitic volume (Bld) 9.4 fL Normal 9.0-12.7 [facility] Platelets Auto #/vol (Bld) 257 10*3/uL Normal 150-400 [facility] RBC Auto #/vol (Bld) 3.95 10*6/uL Normal 3.90-5.20 [facility] WBC Auto #/vol (Bld) 5.93 10*3/uL Normal 3.70-11.00 [facility] Comp Metabolic Panelon 03-10 Albumin mass conc 3.6 g/dL Low 3.9-4.9 [facility] ALP enzyme act/vol 46 U/L Normal 34-123 [facility] ALT enzyme act/vol 18 U/L Normal 7-38 [facility] Anion gap 3 molar conc 10 mmol/L Normal 9-18 [facility] AST enzyme act/vol Unable to assay. Specimen significantly hemolyzed. Normal 13-35 [facility] Bilirubin mass conc 0.2 mg/dL Normal 0.2-1.3 [facility] Calcium mass conc 8.1 mg/dL Low 8.6-10.0 [facility] Chloride molar conc 103 mmol/L Normal 97-105 [facility] CO2 molar conc 27 mmol/L Normal 22-30 [facility] Creatinine mass conc 0.68 mg/dL Normal 0.58-0.96 [facility] eGFR- Amer. >60 Normal [facility] GFR/1.73 sq M predicted among non-blacks MDRD vol rate/area (S/P/Bld) mL/min/{1.73_m2} Normal [facility] Comment on above: Result Comment: eGFR [...] Glucose mass conc 105 mg/dL High 74-99 [facility] Comment on above: Result Comment: The [place] [employer] (ADA) provides guidance for cutoff [...] Standards of Medical Care in Diabetes 2016, [place] [employer]. Diabetes Care. 2016.39(Suppl 1). Potassium molar conc 4.1 mmol/L Normal 3.7-5.1 [facility] Protein mass conc 6.1 g/dL Low 6.3-8.0 [facility] Sodium molar conc 140 mmol/L Normal 136-144 [facility] Urea nitrogen mass conc 8 mg/dL Normal 7-21 [facility] ED NOTEon 03-10-2018 ED NOTE HNO ID: [id number]: Iliana CastRnPEGGY Singhervice: (none)Author Type: Registered NurseType: ED NotesFiled: 03/10/2018 3:32 AMNote Text: Discharge instructions per provider, the patient verbalizesunderstanding . No additional questions or concerns at this time. Patient Vital signs stable, no acute distress noted. Patient ambulatory out ofED. [facility] ED NOTE HNO ID: [id number] Author: Gayla CastRn) DUSTIN Hurtado Service: (none) Author Type: Registered Nurse Type: ED Notes Filed: 03/10/2018 2:46 AM Note Text: Clean catch urine specimen obtained and sent. [facility] ED NOTE HNO ID: [id number] Author: Gayla CastRn) DUSTIN Hurtado Service: (none) Author Type: Registered Nurse Type: ED Notes Filed: 03/10/2018 12:36 AM Note Text: [facility] ED NOTE HNO ID: [id number]: Felipe (Medic) James Alarcon: (none)Author Type: Internal Grinder Tender and TechnicianType: ED NotesFiled: 03/09/2018 11:50 PMNote [...] ETC. Denies N/V, SOB. No othercomplaints noted. [facility] ED PROV NOTEon 03-10-2018 Protein mass conc HNO ID: [id number]: Francis Eagle: (none)Author Type: PhysicianType: ED Provider NotesFiled: 03/10/2018 6:42 AMNote Text:ED Provider NotePatient Name: Joesph NievesRN: [id number] DATE: 03/09/18HistoryPatient presents with:Chest PainPhysical 27-year-old female [...] Percocet [Oxycodone* RashReview of SystemsConstitutional: Negative.HENT: Negative.Respiratory: Negative.Cardiovascular : Positive for chest pain.Gastrointestinal: Negative.Genitourinary: Negative.Musculoskeleta l: Negative.Skin: Negative for rash.Neurological: Negative.Psychiatric/Be havioral: Negative.Physical ExamBP 122/61 Pulse 78 Temp (Src) 98.1 (Oral) Resp 18 Ht 5' 4 (1.63m) Wt 260 lb (117.9kg) SpO2 98% LMP 03/02/2018 BMI 44.61 kg/(m2).Physical ExamConstitutional: She is oriented to person, place, and time. She appearswell-developed and well-nourished.HENT:Hea d: Atraumatic.Eyes: EOM are normal.Neck: Neck supple.Cardiovascular: Normal [...] TestingED Labs Ordered and ReviewedCOMPREHENSIVE METABOLIC PANEL (AK,AV,EU,FV,HL,PATTY,MM,S P) - Abnormal;Notable for the following: Result Value Ref Range Protein, Total 6.1 (*) 6.3 - 8.0 g/dL Albumin 3.6 (*) 3.9 - 4.9 g/dL Calcium 8.1 (*) 8.6 - 10.0 mg/dL Glucose 105 (*) 74 - 99 mg/dL All other components within normal limitsLIPASE BLOOD (AK,AV,EU,FV,HL,PATTY,MM,S P)CBC + AUTO DIFF (AK,AV,EU,FV,HL,PATTY,MM,S P)HIGH SENSITIVITY TROPONIN T (AV,EU,FV,HL,PATTY,MM,SP)H IGH SENSITIVITY TROPONIN T (AV,EU,FV,HL,PATTY,MM,SP)H CG URINE - ED(POC)UA DIP,URINE (ED-POC)ProceduresED Course / Clinical ImpressionClinical Impressions as of Mar 10 0321Chest wall painMDM / Disposition / [id number] female comes into the emergency department complaining [...] extremelyunlikely diagnosis. No evidence of pneumonia or pneumothorax.pericardit is. Not concerned at this time for her [...] editedSignature: CLARKE Powellate: 03/10/2018Time: 6:40 AMAaron [facility]03/10/18 0642 [facility] EKGon 03-10-2018 Protein mass conc NAME : MARK CISSE ID : [id number] : [id number] Gender : FemaleRace : CaucasianORD : Procedure Date : Mar 09 2018 23:52:59Edit Date : Mar 10 2018 05:16:28 Diagnosis:Normal sinus rhythmNormal ECGNo previous ECGs availableConfirmed by DO SILVA AARON ([id number]), school photograph editor DEIRDRE ELIZONDO ([id number]) on 03/10/2018 5:16:22 AM Ventricular Rate : 80 BPMAtrial Rate : 80 BPMP-R Interval : 166 msQRS Duration : 92 msQ-T Interval : 394 msQTC Calculation(Bezet) : 454 msP [place] : 25 degreesR [place] : 19 degreesT [place] : 29 degrees Test Reason : Location : 302 : ED ED Overread By : DO SILVA AARONEdited By : REFUGIO ELIZONDOeferred By : ,Acquired by : , Normal [facility] High Sens Troponin Ton 03-10 High Sensitivity RONAK <6 Normal <12 [facility] Comment on above: Result Comment: When [...] MACE. High Sensitivity RONAK <6 Normal <12 [facility] Comment on above: Result Comment: When [...] Lipase enzyme act/vol 26 U/L Normal 16-61 [facility] PROGRESSon 03-10-2018 Protein mass conc HNO ID: [id number]: Mehreen Alves RtService: (none)Author Type: (none)Type: Progress NotesFiled: 03/10/2018 12:51 AMNote Text: Radiology Service Progress NotePATIENT NAME: Joesph NievesRN: [id number] OF SERVICE: March 10, 2018TIME: 12:50 AMPATIENT IDENTITY VERIFICATION COMPLETED USING TWO (2) METHODS: Patientconfirmed name verbally and ID band matches..PATIENT GENDER DATA: Female. status: : NoBreastfeeding status: NO.PATIENT RELEVANT IMPLANT DATA REVIEWED: YesRADIOLOGY DEPARTMENT: General X-ray: Exam(s) Completed: Chest X-RayPERIPHERAL IV DATA: Not applicableSIGNED BY: Mehreen Alves RtOctober 2017 12:50 AM Normal [facility] XR CHEST 2V FRONTAL/LATon XR CHEST 2V FRONTAL/LAT * * *Final Repor t* * *DATE OF EXAM: Mar 10 2018 12:51AM VHX [id number] - XR CHEST 2V FRONTAL/LAT / REASON: Chest pain, acute, nonspecific, low prob CAD * * * * Physician Interpretation * * * * EXAMINATION: CHEST RADIOGRAPH (2 VIEW FRONTAL and LATERAL)CLINICAL HISTORY: ER adult presented with Chest pain, acute, nonspecific, low prob CAD.MQ: [id number]: No prior studies are available for comparison.RESULT:Lines , tubes, and devices: EKG electrodes are noted.Lungs and pleura: No focal consolidation, pneumothorax, pleural effusion or decompensated CHF.Cardiomediastinal silhouette: Normal cardiomediastinal silhouette.Other: No compression deformities in the visualized thoracic spine. No displaced acute fractures are detected.IMPRESSION:No acute radiographic abnormality.Transcripti onist: IRINA Transcribe Date/Time: Mar 10 2018 1:00ADictated by : VIK BURDICK MDThis examination was interpreted and the report reviewed and electronically signed by: VIK BURDICK MD on Mar 10 2018 1:01AM [id number] CN [facility] Vital Signs Date Time Vital Sign Value Performing Clinician Facility 05-07-2024 15:52-0500 Body mass index (BMI) [Ratio] 37.38 kg/m2 Gagandeep Kumar MD Work Phone: [facility] 05-07-2024 15:52-0500 Body weight 95.71 kg Gagandeep Kumar MD Work Phone: [facility] 05-07-2024 15:52-0500 Diastolic blood pressure 82 mm[Hg] Gagandeep Kumar MD Work Phone: [facility] 05-07-2024 15:52-0500 Systolic blood pressure 130 mm[Hg] Gagandeep Kumra MD Work Phone: [facility] 03-29-2024 09:58-0400 Body mass index (BMI) [Ratio] 37.2 kg/m2 Gagandeep Kumar MD Work Phone: [facility] 03-29-2024 09:58-0400 Body weight 95.25 kg Gagandeep Kumar MD Work Phone: [facility] 03-29-2024 09:58-0400 Diastolic blood pressure 82 mm[Hg] Gagandeep Kumar MD Work Phone: [facility] 03-29-2024 09:58-0400 Systolic blood pressure 122 mm[Hg] Gagandeep Kumar MD Work Phone: [facility] 03-15-2024 12:20-0400 Diastolic blood pressure 74 mm[Hg] MD Bia Franz Work Phone: [facility] 03-15-2024 12:20-0400 Heart rate 80 /min MD Bia Franz Work Phone: [facility] 03-15-2024 12:20-0400 Respiratory rate 16 /min MD Bia Franz Work Phone: [facility] 03-15-2024 12:20-0400 SaO2% (BldA) [Mass fraction] 99 % MD Bia Franz Work Phone: [facility] 03-15-2024 12:20-0400 Systolic blood pressure 127 mm[Hg] MD Bia Frnaz Work Phone: [facility] 03-15-2024 09:50-0400 Body temperature 97.7 [degF] MD Bia Franz Work Phone: [facility] 03-15-2024 08:44-0400 Inhaled oxygen flow rate 8 L/min MD Bia Franz Work Phone: [facility] 03-15-2024 06:08-0400 Body height 160.02 cm MD Bia Franz Work Phone: [facility] 03-15-2024 06:08-0400 Body weight 101 kg MD Bia Franz Work Phone: [facility] 03-08-2024 10:37-0400 Body height 160 cm Jarod Weeks MD Work Phone: [employer] 03-08-2024 10:37-0400 Body mass index (BMI) [Ratio] 37.56 kg/m2 Jarod Weeks MD Work Phone: [employer] 03-08-2024 10:37-0400 Body weight 96.16 kg Jarod Weeks MD Work Phone: [employer] 03-08-2024 10:37-0400 Diastolic blood pressure 104 mm[Hg] Jarod Weeks MD Work Phone: [facility] 03-08-2024 10:37-0400 Respiratory rate 18 /min Jarod Weeks MD Work Phone: [facility] 03-08-2024 10:37-0400 Systolic blood pressure 138 mm[Hg] Jarod Weeks MD Work Phone: [facility] 02-29-2024 13:18-0400 Body mass index (BMI) [Ratio] 36.49 kg/m2 Gagandeep Kumar MD Work Phone: [facility] 02-29-2024 13:18-0400 Body weight 93.44 kg Gagandeep Kumar MD Work Phone: [facility] 02-29-2024 13:18-0400 Diastolic blood pressure 86 mm[Hg] Gagandeep Kumar MD Work Phone: [facility] 02-29-2024 13:18-0400 Systolic blood pressure 132 mm[Hg] Gagandeep Kumar MD Work Phone: [facility] 02-13-2024 13:51-0400 Body mass index (BMI) [Ratio] 37.55 kg/m2 Gagandeep Kumar MD Work Phone: [facility] 02-13-2024 13:51-0400 Body weight 96.16 kg Gagandeep Kumar MD Work Phone: [facility] 02-13-2024 13:51-0400 Diastolic blood pressure 80 mm[Hg] Gagandeep Kumar MD Work Phone: [facility] 02-13-2024 13:51-0400 Systolic blood pressure 160 mm[Hg] Gagandeep Kumar MD Work Phone: [facility] 01-19-2024 12:31-0400 Body height 160 cm Gagandeep Kumar MD Work Phone: [facility] 01-19-2024 12:31-0400 Body mass index (BMI) [Ratio] 37.55 kg/m2 Gagandeep Kumar MD Work Phone: [facility] 01-19-2024 12:31-0400 Body weight 96.16 kg Gagandeep Kumar MD Work Phone: [facility] 01-19-2024 12:31-0400 Diastolic blood pressure 84 mm[Hg] Gagandeep Kumar MD Work Phone: [facility] 01-19-2024 12:31-0400 Systolic blood pressure 126 mm[Hg] Gagandeep Kumar MD Work Phone: [facility] 10-19-2023 08:47-0400 Body height 162.[address] [facility] [employer] [facility] Work Phone: [facility] 10-19-2023 08:47-0400 Body mass index (BMI) [Ratio] 34.33 kg/m2 [address] [facility] Work Phone: [facility] 10-19-2023 08:47-0400 Body weight 90.[address] [facility] Work Phone: [facility] 09-28-2023 13:43-0400 Diastolic blood pressure 85 mm[Hg] Pfo 1 [facility] 09-28-2023 13:43-0400 Heart rate 90 /min Pfo 1 [facility] 09-28-2023 13:43-0400 Respiratory rate 16 /min Pfo 1 [facility] 09-28-2023 13:43-0400 Systolic blood pressure 135 mm[Hg] Pfo 1 [facility] 09-28-2023 12:55-0400 Body height 160 cm Pfo 1 [facility] 09-28-2023 12:55-0400 Body mass index (BMI) [Ratio] 37.56 kg/m2 Pfo 1 [facility] 09-28-2023 12:55-0400 Body temperature 98.2 [degF] Pfo 1 [facility] 09-28-2023 12:55-0400 Body weight 96.16 kg Pfo 1 [facility] 09-28-2023 12:55-0400 SaO2% (BldA) [Mass fraction] 100 % Pfo 1 [facility] 09-26-2023 14:36-0400 Diastolic blood pressure 75 mm[Hg] Pfo 1 [facility] 09-26-2023 14:36-0400 Heart rate 92 /min Pfo 1 [facility] 09-26-2023 14:36-0400 Respiratory rate 16 /min Pfo 1 [facility] 09-26-2023 14:36-0400 Systolic blood pressure 139 mm[Hg] Pfo 1 [facility] 09-26-2023 14:08-0400 Body height 160 cm Pfo 1 [facility] 09-26-2023 14:08-0400 Body mass index (BMI) [Ratio] 37.39 kg/m2 Pfo 1 [facility] 09-26-2023 14:08-0400 Body temperature 98.2 [degF] Pfo 1 [facility] 09-26-2023 14:08-0400 Body weight 95.71 kg Pfo 1 [facility] 09-26-2023 14:08-0400 SaO2% (BldA) [Mass fraction] 98 % Pfo 1 [facility] 09-23-2023 12:55-0400 Body height 160 cm Pfo 1 [facility] 09-23-2023 12:55-0400 Body mass index (BMI) [Ratio] 37.56 kg/m2 Pfo 1 [facility] 09-23-2023 12:55-0400 Body temperature 98.2 [degF] Pfo 1 [facility] 09-23-2023 12:55-0400 Body weight 96.16 kg Pfo 1 [facility] 09-23-2023 12:55-0400 Diastolic blood pressure 72 mm[Hg] Pfo 1 [facility] 09-23-2023 12:55-0400 Heart rate 82 /min Pfo 1 [facility] 09-23-2023 12:55-0400 Respiratory rate 16 /min Pfo 1 [facility] 09-23-2023 12:55-0400 SaO2% (BldA) [Mass fraction] 100 % Pfo 1 [facility] 09-23-2023 12:55-0400 Systolic blood pressure 148 mm[Hg] Pfo 1 [facility] 09-19-2023 12:48-0400 Body height 160 cm Pfo 2 [facility] 09-19-2023 12:48-0400 Body mass index (BMI) [Ratio] 37.39 kg/m2 Pfo 2 [facility] 09-19-2023 12:48-0400 Body temperature 98.29 [degF] Pfo 2 [facility] 09-19-2023 12:48-0400 Body weight 95.71 kg Pfo 2 [facility] 09-19-2023 12:48-0400 Diastolic blood pressure 77 mm[Hg] Pfo 2 [facility] 09-19-2023 12:48-0400 Heart rate 79 /min Pfo 2 [facility] 09-19-2023 12:48-0400 Respiratory rate 16 /min Pfo 2 [facility] 09-19-2023 12:48-0400 SaO2% (BldA) [Mass fraction] 100 % Pfo 2 [facility] 09-19-2023 12:48-0400 Systolic blood pressure 151 mm[Hg] Pfo 2 [facility] 09-08-2023 11:44-0400 Body height 160 cm Jarod Weeks MD Work Phone: [facility] 09-08-2023 11:44-0400 Body mass index (BMI) [Ratio] 37.56 kg/m2 Jarod Weeks MD Work Phone: [facility] 09-08-2023 11:44-0400 Body weight 96.16 kg Jarod Weeks MD Work Phone: [facility] 09-08-2023 11:44-0400 Diastolic blood pressure 102 mm[Hg] Jarod Weeks MD Work Phone: [facility] 09-08-2023 11:44-0400 Respiratory rate 18 /min Jarod Weeks MD Work Phone: [facility] 09-08-2023 11:44-0400 Systolic blood pressure 156 mm[Hg] [facility] 05-31-2023 15:25-0500 Body height 160 cm [facility]od Weeks MD [facility] 05-31-2023 15:25-0500 Body mass index (BMI) [Ratio] 37.74 kg/m2 Jarod Weeks MD [facility] 05-31-2023 15:25-0500 Body weight 96.62 kg Jarod Weeks MD [facility] 05-31-2023 15:25-0500 Diastolic blood pressure 78 mm[Hg] Jarod Weeks MD [facility] 05-31-2023 15:25-0500 Respiratory rate 18 /min [facility]-31[facility] 15:25-0500 Systolic blood pressure 124 mm[Hg] Jarod Weeks MD [facility] Encounters Encounter Date Encounter Type Care Provider Facility Start: 11-15-2024 End: 11-15-2024 Follow-up encounter Gagandeep Kumar MD Work Phone: [facility] Start: 11-14-2024 End: 11-14-2024 ambulatory GAGANDEEP KUMAR Not Available Start: 10-26-2024 End: 10-26-2024 Telephone encounter Gloria Read [facility] Work Phone: [facility] Comment on above: Genetic Testing Resu eds-[id number] Start: 10-08-2024 End: 10-08-2024 Patient encounter procedure Gloria Roro [facility] Work Phone: [facility] Comment on above: Tooth loss (Primary Dx); Generalized hypermobility of joints; Arthralgia, unspecified joint Generalized hypermob ility of joints (Primary Dx); History of dental problems; Arthralgia, unspecified joint; History of dislocation; History of subluxation of joint; History of injury; Easy bruising; POTS (postural orthostatic tachycardia syndrome); Fatigue, unspecified type; Pes planus of both feet; Recurrent nephrolithiasis Start: 10-08-2024 End: 10-08-2024 ambulatory WILL Gold LEIA Facility:[facility] Start: 10-05-2024 End: 10-05-2024 Telephone encounter Gloria Read [facility] Work Phone: [facility] Comment on above: 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 Comment on above: Mass of upper outer quadrant of right breast Start: 05-07-2024 End: 05-07-2024 Bamboo liat Kumar MD Work Phone: [facility] Start: 05-07-2024 End: 05-07-2024 Bamboo liat Kumra MD Work Phone: [facility] Start: 03-29-2024 End: 03-29-2024 Bamboo liat Kumar MD Work Phone: [facility] Start: 03-29-2024 End: 03-29-2024 Wild Kumar MD Work Phone: [facility] Start: 03-29-2024 End: 03-29-2024 Postop follow up visit related to original px Gagandeep Kumar MD Work Phone: [facility] Comment on above: Surgery follow-up (P rimary Dx); Menometrorrhagia; Subserous leiomyoma of uterus; Dysmenorrhea; Chronic blood loss anemia; Adenomyosis; BRCA1-associated protein-1 tumor predisposition syndrome; Menopausal symptoms Start: 03-29-2024 End: 03-29-2024 ambulatory GAGANDEEP KUMAR Not Available Start: 03-15-2024 End: 03-15-2024 Admission to same day surgery center MD Bia Franz Work Phone: [facility] [place] Start: 03-15-2024 End: 03-15-2024 ambulatory MD Bia Franz Work Phone: [facility] Work Phone: Start: 03-08-2024 End: 03-08-2024 Office outpatient visit 25 minutes Jarod Weeks MD Work Phone: [facility] Comment on above: Fibromyalgia Start: 03-08-2024 End: 03-08-2024 ambulatory [facility] Start: 03-01-2024 End: 03-01-2024 External Result Encounter Gagandeep Kumar MD Work Phone: [facility] Unsolicited Start: 03-01-2024 End: 03-01-2024 External Result Encounter Gagandeep Kumar MD Work Phone: [facility] Unsolicited Start: 03-01-2024 End: 03-01-2024 Patient encounter procedure MD Bia Franz Work Phone: [facility] Work Phone: Start: 03-01-2024 End: 03-01-2024 ambulatory MD Bia Franz Work Phone: [facility] Work Phone: Start: 03-01-2024 Encounter for other preprocedural examination Gagandeep Kumar [facility] Start: 02-29-2024 End: 02-29-2024 Bamboo liat Kumar MD Work Phone: [facility] Start: 02-29-2024 End: 02-29-2024 Wild Kumar MD Work Phone: [facility] Start: 02-29-2024 End: 02-29-2024 Office outpatient visit 25 minutes Gagandeep Kumar MD Work Phone: [facility] Comment on above: Menometrorrhagia (Pr imary Dx); Subserous leiomyoma of uterus; Dysmenorrhea; Chronic blood loss anemia; Adenomyosis; Cervical cancer screening; Screening for HPV (human papillomavirus); Unsatisfactory cervical Papanicolaou smear; BRCA1-associated protein-1 tumor predisposition syndrome Start: 02-29-2024 End: 02-29-2024 ambulatory GAGANDEEP KUMAR Not Available Start: 02-13-2024 End: 02-13-2024 Jayo liat Kumar MD Work Phone: [facility] Start: 02-13-2024 End: 02-13-2024 Bamboo flowsjasbir Kumar MD Work Phone: [facility] Start: 02-13-2024 End: 02-13-2024 Office outpatient visit 25 minutes Gagandeep Kumar MD Work Phone: [facility] Comment on above: Subserous leiomyoma of uterus (Primary Dx); Menometrorrhagia; Dysmenorrhea; Chronic blood loss anemia; Adenomyosis Start: 02-13-2024 End: 02-13-2024 ambulatory GAGANDEEP KUMAR Not Available Start: 01-31-2024 End: 01-31-2024 Orders Only Yadira Razo PA-C Work Phone: [facility] Start: 01-19-2024 End: 01-19-2024 Wild Kumar MD Work Phone: [facility] Start: 01-19-2024 End: 01-19-2024 Wild Kumar MD Work Phone: [facility] Start: 01-19-2024 End: 01-27-2024 Orders Only Gagandeep Kumar MD Work Phone: [facility] External [facility] Unsolicited Start: 01-19-2024 End: 01-19-2024 Office outpatient new 45 minutes Gagandeep Kumar MD Work Phone: [facility] Comment on above: Menometrorrhagia (Pr imary Dx); Cervical cancer screening; Screening for HPV (human papillomavirus); control counseling; Dysmenorrhea; Chronic blood loss anemia Start: 01-19-2024 End: 01-19-2024 ambulatory GAGANDEEP KUMAR Not Available Start: 01-16-2024 End: 01-16-2024 ambulatory Jefferson York MD Facility:[facility] Start: 01-14-2024 End: 01-14-2024 ambulatory [facility] Start: 01-02-2024 End: 01-02-2024 ambulatory [facility] Start: 12-26-2023 End: 12-26-2023 ambulatory Jefferson York MD Facility:[facility] Start: 10-19-2023 End: 10-19-2023 ambulatory Will Dupree DO Work Phone: [facility] Comment on above: Hypermobility of lillie nt (Primary Dx) Start: 10-19-2023 End: 10-19-2023 Telemedicine consultation with patient Will Dupree Work Phone: [facility] Start: 09-28-2023 End: 09-28-2023 ambulatory [facility] Comment on above: Iron deficiency anem ia due to chronic blood loss (Primary Dx); Menorrhagia with regular cycle Start: 09-26-2023 End: 09-26-2023 ambulatory [facility] Comment on above: Iron deficiency anem ia due to chronic blood loss (Primary Dx); Menorrhagia with regular cycle Start: 09-23-2023 End: 09-23-2023 ambulatory [facility] Comment on above: Iron deficiency anem ia due to chronic blood loss (Primary Dx); Menorrhagia with regular cycle Start: 09-21-2023 End: 09-21-2023 [facility] Start: 09-19-2023 End: 09-19-2023 ambulatory [facility] Comment on above: Menorrhagia with reg ular cycle (Primary Dx); Iron deficiency anemia due to chronic blood loss Start: 09-12-2023 End: 09-12-2023 Orders Only Jarod Weeks MD Work Phone: [facility] Start: 09-12-2023 End: 09-12-2023 Orders Only Yadira [facility] PA-C Work Phone: [facility] Comment on above: Iron deficiency anem ia due to chronic blood loss (Primary Dx); Menorrhagia with regular cycle Start: 09-10-2023 End: 09-10-2023 ambulatory BIA FRANZ [facility] Start: 09-08-2023 End: 09-08-2023 [facility] Start: 09-08-2023 End: 09-08-2023 Office outpatient visit 25 minutes Jarod Weeks MD Work Phone: [facility] Comment on above: Fibromyalgia Start: 05-31-2023 End: 05-31-2023 ambulatory [facility] Start: 05-31-2023 End: 05-31-2023 Office outpatient visit 25 minutes Jarod Weeks MD Work Phone: [facility] Comment on above: Greater trochanteric bursitis of both hips (Primary Dx); Fibromyalgia; Vitamin B 12 deficiency; Anserine bursitis Start: 11-23-2021 End: 11-23-[address] BIA FRANZ Facility: Start: 11-03-2021 End: 11-04-[address] JERAMIE ATKINSON Facility:[facility] Start: 11-02-2021 End: 11-03-[address] JERAMIE ATKINSON Facility:[facility] Start: 10-01-2021 End: 10-02-[address] BIA FRANZ Facility:[facility] Start: 09-10-2021 End: 09-11-[address] BIA FRANZ Facility:[facility] Start: 03-10-2021 End: 03-11-[address] DOCTOR SMYTH Facility:[facility] Start: 02-10-2021 End: 02-11-[address] DOCTOR SMYTH Facility:[facility] Start: 01-02-2021 End: 01-02-[address] BIA FRANZ Facility:[facility] Start: 12-08-2020 End: 12-09-[address] BIA FRANZ Facility:[facility] Start: 03-10-2018 End: 03-10-2018 Emergency department patient visit [facility] Procedures Date Procedure Procedure Detail Performing Clinician Start: 03-15-2024 Total hysterectomy v ia vaginal approach MD Bia Franz Work Phone: Start: 03-01-2024 Antibody screen aGgandeep tipton Comment on above: Order Comment: Date of Surgery: [id number] Result Comment: PERF ORMED BY: [facility] [address] [place] [address] PATHOLOGIST LEASE PURCHASE DRIVER ARTURO SCHULTZ M.D. Start: 03-01-2024 Basic metabolic pane l calcium total Gagandeep Kumar MD Work Phone: Start: 03-01-2024 Complete blood count with white cell differential, automated Gagandeep Kumar MD Work Phone: Start: 01-19-2024 Microscopic observat ion [Identifier] in Cervix by Cyto stain Jarod Weeks MD Work Phone: Start: 01-19-2024 Cytp c/v auto thin l yr prepj scr mnl rescr phys Gagandeep Kumar MD Work Phone: Plan of Treatment Date Care Activity Detail Author Start: 11-24-2031 DTaP,Tdap and Td Vaccines (2 - Tdap) DTaP,Tdap and Td Vaccines (2 - Tdap) [facility] Start: 11-24-2031 Urine microalbumin profile DTaP,Tdap,Td Vaccine (2 - Tdap) [facility] Start: 02-28-2029 Screening for malignant neoplasm of cervix [facility] Start: 01-18-2027 Screening for malignant neoplasm of cervix Pap Smear [facility] Start: 03-22-2025 End: 03-22-2025 Patient encounter procedure 03/22/2025 12:30 PM EDT Office Visit Cardiology [address] [address] [facility]helby [facility] Comment on above: harryshelby jewell Start: 03-22-2025 End: 03-22-2025 Patient encounter procedure 03/22/2025 10:15 AM EDT Office Visit Cardiology [address] [place] [address] Bj Hall MD [address] [place] [address] kandice [facility] Comment on above: kandice corcoran Start: 03-22-2025 End: 03-22-2025 ambulatory 03/22/2025 9:30 AM EDT Procedure Cardiology [address] [place] [address] kandice [facility] Comment on above: harryshelby elizondoliyah Start: 01-28-2025 Influenza vaccination Influenza Vaccine (Season Ended) [facility] Start: 11-06-2024 End: 11-06-2024 ambulatory 11/06/2024 12:45 PM EDT OT/PT/Speech Visit [facility] [address] [facility] [place] [address] Shelbie Martinez, PT, DPT [address] [place], [place] [id number] Hypermobility in joints [facility] Comment on above: Hypermobility in joints Start: 10-08-2024 End: 10-08-2024 Patient encounter procedure [facility] Comment on above: EDS Start: 09-27-2024 Adult BMI Screening Adult BMI Screening [facility] Start: 09-27-2024 Tobacco Screening Tobacco Screening [facility] Start: 09-25-2024 Adult BMI Screening Adult BMI Screening [facility] Start: 09-25-2024 Tobacco Screening Tobacco Screening [facility] Start: 09-22-2024 Adult BMI Screening Adult BMI Screening [facility] Start: 09-22-2024 Tobacco Screening Tobacco Screening [facility] Start: 09-20-2024 Adult BMI Screening Adult BMI Screening [facility] Start: 09-20-2024 Tobacco Screening Tobacco Screening [facility] Start: 09-18-2024 Adult BMI Screening Adult BMI Screening [facility] Start: 09-18-2024 Tobacco Screening Tobacco Screening [facility] Start: 09-07-2024 Adult BMI Screening Adult BMI Screening [facility] Start: 09-07-2024 Tobacco Screening Tobacco Screening [facility] Start: 09-06-2024 End: 09-06-2024 Patient encounter procedure 09/06/2024 12:30 PM EDT Office Visit [facility] [address] [facility] [address] [place] [id number] Jarod Weeks MD [address] [facility] [address] [place] [address] [facility] Start: 05-31-2024 Adult BMI Screening Adult BMI Screening [facility] Start: 05-14-2024 End: 05-14-2024 Patient encounter procedure 05/14/2024 3:15 PM EST Office Visit [facility] [address] [facility] [address] [place] [id number] Gagandeep Kumar MD [address] [facility] [address] [place] [address] [facility] Start: 05-07-2024 End: 07-08-2025 DBT Breast - bilateral diagnostic Bilateral diagnostic mammogram with tomosynthesis Imaging Routine Mass of upper outer quadrant of right breast Expected: 05/07/2024, Expires: 07/08/2025 [facility] Work Phone: Comment on above: Expected: 05/07/2024, Expires: Start: 05-07-2024 End: 07-08-2025 US Breast - right Right breast US complete Imaging Routine Mass of upper outer quadrant of right breast Expected: 05/07/2024, Expires: 07/08/2025 [facility] Comment on above: Expected: 05/07/2024, Expires: Start: 03-29-2024 End: 03-29-2024 Patient encounter procedure [facility] Comment on above: Surgery follow-up; Menometrorrhagia; Subserous leiomyoma of uterus; Dysmenorrhea; Chronic blood loss anemia; Adenomyosis; BRCA1-associated protein-1 tumor predisposition syndrome Start: 03-15-2024 Hospital admission [facility] Start: 03-15-2024 End: 03-15-2024 Patient encounter procedure [facility] Start: 03-15-2024 End: 03-15-2024 [facility] Start: 03-08-2024 End: 03-08-2024 Patient encounter procedure 03/08/2024 10:45 AM EDT Office Visit [facility] [address] [facility] [address] [place] [address] Jarod Weeks MD [address] [facility] [address] [place] [address] [facility] Start: 02-29-2024 End: 02-29-2024 Patient encounter procedure 02/29/2024 1:15 PM EDT Consult [facility] [address] [facility] [address] [place] [address] Gagandeep Kumar MD [address] [facility] [address] [place] [address] Subserous leiomyoma of uterus; Menometrorrhagia; Dysmenorrhea; Chronic blood loss anemia; Adenomyosis [facility] Comment on above: Subserous leiomyoma of uterus; Menometrorrhagia; Dysmenorrhea; Chronic blood loss anemia; Adenomyosis Start: 02-17-2024 Tobacco Screening Tobacco Screening [facility] Start: 02-13-2024 End: 02-13-2024 Patient encounter procedure [facility] Comment on above: Menometrorrhagia; Dysmenorrhea; Chronic blood loss anemia Start: 02-13-2024 End: 02-13-2024 Professional / ancillary services management [facility] Comment on above: Menometrorrhagia; Dysmenorrhea; Iron deficiency anemia due to chronic blood loss Start: 01-29-2024 COVID-19 Vaccine () COVID-19 Vaccine () [facility] Start: 01-29-2024 Covid-19 Vaccine () Covid-19 Vaccine () [facility] Start: 01-29-2024 Influenza vaccination [facility] Start: 01-19-2024 End: 01-19-2024 Patient encounter procedure 01/19/2024 12:30 PM EDT Office Visit [facility] [address] [facility] [address] [place] [address] Gagandeep Kumar MD [address] [facility] [address] [place] [address] Well woman exam with routine gynecological exam; Cervical cancer screening; Screening for HPV (human papillomavirus); control counseling [facility] Comment on above: Well woman exam with routine gynecologic al exam; Cervical cancer screening; Screening for HPV (human papillomavirus); control counseling Start: 09-28-2023 End: 09-28-2023 ambulatory 09/28/2023 1:00 PM EDT Infusion Pennie Landrum [facility] [address] [place] [id number] [facility] Start: 09-26-2023 End: 09-26-2023 ambulatory 09/26/2023 2:00 PM EDT Infusion [facility] [address] [place] [id number] [facility] Start: 09-23-2023 End: 09-23-2023 ambulatory 09/23/2023 1:00 PM EDT Infusion [facility] [address] [place] [address] Pennie Landrum [facility] Start: 09-21-2023 End: 09-21-2023 ambulatory 09/21/2023 12:00 PM EDT Infusion [facility]ie [facility] [address] [place] [address] Pennie Landrum [facility] Start: 09-10-2023 End: 09-10-2023 Patient encounter procedure 09/10/2023 8:10 AM EDT Appointment [facility] [address] [place] [address] [facility] Start: 09-08-2023 End: 09-07-2024 XR Hip - bilateral 3 Views [facility] Work Phone: Comment on above: Expected: 09/08/2023, Expires: Start: 09-08-2023 End: 09-08-2023 Patient encounter procedure 09/08/2023 11:30 AM EDT Office Visit [facility] [address] [place] [id number] Jarod Weeks MD [address] [address] [facility] Start: 05-30-2023 Behavioral Health Screening Behavioral Health Screening [facility] Start: 01-28-2023 Covid-19 Vaccine ( season) Covid-19 Vaccine () [facility] Start: 01-28-2023 Influenza vaccination Influenza Vaccine [facility] Start: 2022 Screening for malignant neoplasm of cervix [facility] Start: 2013 Screening for malignant neoplasm of cervix [facility] Start: 2011 Hepatitis B Vaccine (1 of 3 - + 3-dose series) Hepatitis B Vaccine (1 of 3 - + 3-dose series) [facility] Start: 2010 Adult BMI Follow Up Plan Adult BMI Follow Up Plan [facility] Start: 2010 Anxiety Screening Anxiety Screening [facility] Start: 2010 Depression Screening Depression Screening [facility] Start: 2010 Hepatitis C screening Hepatitis C Screening [facility] Start: 2010 HIV screening HIV Screening [facility] Start: 2004 Depression Screening Depression Screening [facility] End: 10-26-2025 Echocardiography ECHO Cardiology Routine History of subluxation of joint Generalized hypermobility of joints Pes planus of both feet 1 Occurrences starting 10/26/2024 until 10/26/2025 [facility] Work Phone: Comment on above: 1 Occurrences starting 10/26/2024 until 10/26/2025 IGP, APT HPV,RFX 16/18,45 IGP, A PT HPV,RFX 16/18,45 Lab Routine Cervical cancer screening Screening for HPV (human papillomavirus) Unsatisfactory cervical Papanicolaou smear [facility]: Comment on above: Ordered: 02/29/2024 IGP, APTIMA HPV, RFX 16/18,45 ([facility]) IGP, APTIMA HPV, RFX 16/18,45 ([facility]) Lab Routine Cervical cancer screening Screening for HPV (human papillomavirus) Ordered: 01/19/2024 [facility] Work Phone: Comment on above: Ordered: 01/19/2024 [facility] AND RARE GENETIC DISEASE PANEL [facility] GENETIC DISEASE PANEL Lab Routine Tooth loss Generalized hypermobility of joints Arthralgia, unspecified joint Ordered: 10/08/2024 [facility] Work Phone: Comment on above: Ordered: 10/08/2024 Patient Education Know your [facility] Work Phone: Patient referral [facility] Work Phone: Immunizations Immunization Date Immunization Notes Care Provider Brina trinh 11-23-2021 diphtheria, tetanus toxoids and pertussis vaccine Gagandeep Kumar MD Work Phone: [facility] Payers Date Payer Category Payer Self-pay [id number] 2022 Medicaid [id number] 2022 Private Health Insurance [id number] 2022 Unknown 2022 Private Health Insurance [id number] 2022 Unknown [id number] 1990 Unknown [id number] 2.16.840.1.519155.3.579.2.593 1992 Unknown [id number] 2.16.840.1.107027.3.579.2.593 1992 Unknown [id number] 2.16.840.1.246934.3.579.2.593 1992 Unknown [id number] 2.16.840.1.259627.3.579.2.593 1992 Unknown [id number] 2.16.840.1.132901.3.579.2.593 1992 Unknown [id number] 2.16.840.1.625748.3.579.2.593 1992 Unknown [id number] 2.16.840.1.629288.3.579.2.593 1992 Unknown [id number] 2.16.840.1.781639.3.579.2.593 1992 Unknown [id number] 2.16.840.1.111537.3.579.2.593 1992 Unknown [id number] 2.16.840.1.149119.3.579.2.1285 1992 Unknown [id number] 2.16.840.1.097174.3.579.2. 1992 Unknown [id number] 2.16.840.1.637728.3.579.2. 1992 Unknown [id number] 2.16.840.1.446395.3.579.2. 1992 Unknown [id number] 2.16840.1.470797.3.579.2.1285 1992 Unknown [id number] 2.16840.1.141003.3.579.2.1285 1992 Unknown [id number] 2.840.1.599999.3.579.2.1285 1992 Unknown [id number] 2.16840.1.588626.3.579.2.1285 1992 Unknown [id number] 2.840.1.562840.3.579.2.1285 1992 Unknown [id number] 2.16840.1.813703.3.579.2.1285 1992 Unknown [id number] 2.16840.1.263742.3.579.2.1285 1992 Unknown [id number] 2.16.840.1.496383.3.579.2.1285 1992 Unknown [id number] 2.16.840.1.966780.3.579.2.1285 1992 Unknown [id number] 2.16840.1.004472.3.579.2.1285 1992 Unknown [id number] 2.16840.1.838663.3.579.2.9 1992 Unknown [id number] 2.16.840.1.850785.3.579.2.9 1992 Unknown [id number] 2.16.840.1.760388.3.579.2.1258 1992 Unknown [id number] 2.16.840.1.369419.3.579.2.1258 1992 Unknown [id number] 2.16.840.1.127060.3.579.2.1258 1992 Unknown [id number] 2.16.840.1.130102.3.579.2.1258 1992 Unknown [id number] 2.16.840.1.525653.3.579.2.1258 1992 Unknown [id number] 2.16.840.1.037970.3.579.2.1258 1992 Unknown [id number] 2.16.840.1.398873.3.579.2.1258 1992 Unknown [id number] 2.16.840.1.231928.3.579.2.9 1959 Unknown [id number] Unknown Jung BC/BS [id number] Unknown [id number] 2.16.840.1.117430.3.579.2.531 Unknown [id number] 2.16.840.1.222332.3.579.2.531 Worker's Compensation [id number] Social History Date Type Detail Facility Start: 10-19-2023 End: 01-12-2024 Tobacco smoking status NHIS Never smoked tobacco [facility] Start: 10-19-2023 End: 01-12-2024 Tobacco use and exposure Smokeless tobacco non-user [facility] Start: 10-19-2023 End: 05-07-2024 Alcohol intake Ex-drinker (finding) [facility] Start: 10-19-2023 End: 01-19-2024 History of Social function [facility] Start: 10-19-2023 End: 01-19-2024 Tobacco use panel [facility] National Score (1-100), lower number is lower risk 89 [facility] Start: 1990 Sex Assigned At Female C [facility] Start: 05-12-2023 Gender identity Identifies as female gender (finding) [facility] How often to you hav e a drink containing alcohol? Never [facility] Start: 09-19-2023 End: 03-08-2024 Alcoholic beverage intake Current drinker of alcohol (finding) [facility] How hard is it for y ou to pay for the very basics like food, housing, medical care, and heating Somewhat hard [facility] Start: 05-12-2023 Sexual orientation Choose not to disclose [facility] NEGATED: Highlighted rowStart: NINF History of tobacco use Passive smoker [facility] Medical Equipment Procedure Code Equipment Code Equipment Origin al Text Equipment Identifier Dates Use to inject Vi t B 12 intramuscular [id number] Start: 05-31-2023 Use to inject Vi t B 12 intramuscular [id number] Start: 09-21-2022 End: 05-31-2023 Goals Date Patient Goal Desired Activity /State Functional Status Date Assessment Result Facility 03-15-2024 Functional status Patient at Baseline [facility] Work Phone: Mental Status Date Assessment Result Facility 03-15-2024 Cognitive function Cognitive Sta tus Patient at Baseline [facility] Work Phone: Clinical Notes 05-31-2023 to 10-26-2024 Telephone Encounter - Gloria Read LGC - 10/26/2024 9:38 AM EDTTelephone Encounter - Gloria Read LGC - 10/26/2024 9:38 AM Jasbir Leos DO - 10/08/2024 11:00 AM EDT Note Date & Type Note Facility 10-26-2024 Telephone encounter Note I called and spoke to Joesph. I explained that their testing for connective tissue disorders and ALPL came back as non-diagnostic. I explained that this means we did not find any known pathogenic or disease causing genetic changes, in the genes we tested her for. this result greatly reduces the chances of them having one of these conditions. We discussed that the reason I say it is greatly reduces it is because there may be limitations in our knowledge or technology that make it difficult for us to identify a genetic change in these genes and therefore, we can never completely rule it out. We did identify two variants of uncertain significance in COL3A1 and COL9A2. I reviewed that a variant of uncertain significance is when we identify a change in a gene, but do not have enough information to determine if it is disease causing or normal variation. Additional testing and research needs to be conducted before they are determined to be normal variation or disease-causing. I explained that most of the time these variants are normal variation and parental testing can help clarify this. She stated her mother would be interested in testing, but her father is unavailable. Discussed possibly having her brother evaluated since he has similar CTD features as she does. She will send me their information to facilitate variant testing for them. Lastly we discussed that individuals with vascular EDS typically have abnormal echos. Explained we would recommend an updated echo. She agreed with this plan and an order was placed for have an echo and meet with cardiology. Answered all questions to the best of my ability and encouraged her to reach out with any additional questions or concerns. Gloria Read M.S., C.G.C Licensed, Certified Genetic Counselor [facility] 10-26-2024 Miscellaneous Notes I called and spoke to Joesph. I explained that their testing for connective tissue disorders and ALPL came back as non-diagnostic. I explained that this means we did not find any known pathogenic or disease causing genetic changes, in the genes we tested her for. this result greatly reduces the chances of them having one of these conditions. We discussed that the reason I say it is greatly reduces it is because there may be limitations in our knowledge or technology that make it difficult for us to identify a genetic change in these genes and therefore, we can never completely rule it out. We did identify two variants of uncertain significance in COL3A1 and COL9A2. I reviewed that a variant of uncertain significance is when we identify a change in a gene, but do not have enough information to determine if it is disease causing or normal variation. Additional testing and research needs to be conducted before they are determined to be normal variation or disease-causing. I explained that most of the time these variants are normal variation and parental testing can help clarify this. She stated her mother would be interested in testing, but her father is unavailable. Discussed possibly having her brother evaluated since he has similar CTD features as she does. She will send me their information to facilitate variant testing for them. Lastly we discussed that individuals with vascular EDS typically have abnormal echos. Explained we would recommend an updated echo. She agreed with this plan and an order was placed for have an echo and meet with cardiology. Answered all questions to the best of my ability and encouraged her to reach out with any additional questions or concerns. Gloria Read M.S., C.G.C Licensed, Certified Genetic Counselor documented in this encounter [facility] 10-08-2024 History of Present illness Narrative MEDICAL GENETICS CLINIC INITIAL VISIT Patient: Joesph Pink Date of : 1990 Clinic #: [id number] Consultation requested by: Dr. Will Dupree Date of visit: 10/07/2024 Recording using [employer] software for draft documentation of the visit was discussed with the patient/authorized business office representative; all questions welcomed and answered. Patient/authorized business office representative agreed to proceed Joesph Pink is accompanied to today's clinic visit by her mother. RECORDS REVIEWED PRIOR TO VISIT: [facility] EMR including but not limited to any available clinic notes, lab results, imaging reports, and cardiac studies. Information obtained from parents/patient and via medical record review Consultation requested by Dr. Dupree for an opinion regarding joint hypermobility and family history of abnormal genetic testing. My final recommendations will be communicated back to the requesting physician by way of shared Medical record or letter to requesting physician via US mail. 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 Joesph reports a history of hypermobility during childhood, which has decreased over time. She has experienced multiple joint dislocations and subluxations, including the shoulder, hips, and knee. She denies any history of fractures but has had a torn MCL, PCL, and rotator cuff under the age of 22, which required surgery. These injuries were not trauma-related but were due to use. She reports joint pain and has had all her teeth removed due to severe cavities and tooth loss, with her dentist noting severe bone loss. She also has a narrow palate and endorses a history of delayed wound healing, abnormal scarring, hyperextensible skin, easy bruising, and prolonged bleeding. She notes difficulty with adhesive bandages. She has numerous tattoos and report these took about 1 week longer to heal than expected. She required iron transfusions in the past due to severe fibroids and had a hysterectomy related to that. She is unsure if she has had an echocardiogram but thinks she does and it noted some enlargement of the right side of her heart. She has myopia and severe astigmatism but no history of retinal tear or detachment. She is suspected to have POTS but has not undergone a tilt table test. She reports difficulty staying asleep, fatigue, anxiety, and depression. She has stretch rodriguez, high arches, and a history of hip dysplasia that required bracing on her legs. She is suspected to have autism but hasn't been formally evaluated and has ADHD. She also has urticarian eczema with no known triggers. She reports proximal muscle weakness in her legs and arms, which she was told was due to degenerative disc disease and a history of spina bifida occulta. She gets recurrent kidney stones every other month and usually passes them on her own with medication. She has not had genetic testing. Although the referral states there is a family history of abnormal genetic testing, this is denied. Upon chart review, a BRCA1 variant was reported. She reports that she has not had clinical grade genetic testing. She had testing through and [facility] and ran the raw data through a program. PAST MEDICAL HISTORY: Aside from above: Menometrorrhagia Dysmenorrhea Leiomyoma of uterus Adenomyosis Blood loss anemia requiring infusions Bipolar Disorder PAST SURGICAL HISTORY: Hysterectomy MEDICATIONS: Current Outpatient Medications on File Prior to Visit Medication Sig Amphetamine-Dextroamphetamine (ADDERALL) 30 mg tablet Take 1 tablet by mouth every afternoon. methocarbamol (ROBAXIN) 750 mg tablet Take 750 mg by mouth daily at bedtime. pregabalin (LYRICA) 75 mg capsule TAKE 1 CAPSULE BY MOUTH ONCE DAILY at EIGHT IN THE EVENING No current facility-administered medications on file prior to visit. ALLERGIES: ALLERGIES Allergen Reactions Percocet [Oxycodone* Hives SOCIAL HISTORY: Lives in [place] with her mother, , and three kids. Employment: Unemployed Level of education: Completed college Alcohol/cigarettes/other: Medical marijuana FAMILY HISTORY: A four generation pedigree was collected by Gloria Read MS, CGC at the patient's separate genetic counseling encounter. The pedigree will be scanned into [employer]. This information was reviewed with the family and modified as necessary; refer to the genetic counseling encounter and formal pedigree for other details on the family history. - Patient's ethnicity: Maternal Mongolian/Elisabet; Paternal Burkinan/Mongolian/ AJ. - Partner's ethnicity: not applicable. - No known -Djiboutian, Mediterranean, /, Vatican Citizen-Comoran/Cajun, or Ashkenazi Evangelical ancestry unless noted above. - Parental consanguinity: No Children: 12 yo and 9 yo daughter who are hypermobile. The 12 yo also has ADHD and the 9 yo has allergies. Full siblings and their children: Younger brother who also has poor dentition where he is losing teeth and likely needs dentures. He is hypermobile and has flat feet. Maternal half siblings and their children: None Paternal half siblings and their children: 32 yo ssiter who has ankylosying spondylitis and her son is autisitic. Parental losses: None Mother: 56 years old. History of MS, joint pain, and type II diabetes.. Maternal relatives: Of significance, two aunts had MIKAYLA due to fibroids. Uncle passed at 59 from complications of diabetes and he had leukemia. Aunt with colon cancer diagnosed in her 50s. Father: 59 years old. History of extensive cavities and teeth falling out. He is bow legged and has joint pain. He had a TIA at 30 thought to be due to protein C deficiency. Paternal relatives: Of significance, almost all of Joesph 's aunts and uncles as well as first cousins have required dentures around 30. They also have joint pain. In addition, she has a first cousin who has cleft lip and palate as well as unilateral polydactyly. Grandfather's sister and brother also had cleft lip and palate. One aunt had colon cancer in her 50s. PHYSICAL EXAMINATION: Last 1 Encounter Ht Readings: Date: Ht: 10/19/2023 162.6 cm (5' 4 ) Last 1 Encounter Wt Readings: Date: Wt: 10/19/2023 90.7 kg (200 lb) BMI Readings from Last 1 Encounters: 10/19/23 : 34.33 kg/m Arm span: 150.5 cm Arm span to height ratio: 0.92 Constitutional: In no acute distress, appears stated age, non-dysmorphic Head and Face: Grossly normocephalic Eyes: Normal in position and placement, EOMI; lids, lashes, and brows normal Ears: Well-formed, normal in position and placement, canals patent Nose: Nares patent Mouth/Throat: Absent teeth. Lips, philtrum, palate normal; no high arched palate Chest: No pectus deformity Cardiovascular: No lower extremity edema Respiratory: No increased work of breathing Gastrointestinal: Nondistended Musculoskeletal: Pes planus. No visible hernias, no hand or foot anomalies. Negative wrist and thumb sign. Skin, Hair and Nails: Poliosis on scalp/hair. Skin soft and velvety. Striae present in several areas but likely proportional to weight. Bilateral piezogenic papules. No hyperextensible skin, varicose veins on thighs, no atrophic scarring, normal skin texture, no molluscoid pseudotumors, subcutaneous spheroids, no acrogeric hands, no thin/translucent skin on the chest Neurologic: Mental status appropriate for age; appropriate muscle bulk Psychiatric: Appearance, mood, engagement, speech, affect normal Beighton Score: CRITERIA SCORE Passive dorsiflexion of each fifth finger greater than 90 (1 point each) 2 Passive apposition of each thumb to the flexor surface of the forearm (1 point each) 2 Hyperextension of each elbow greater than 10 (1 point each) 2 Hyperextension of each knee greater than 10 (1 point each) [address] the palms flat on the floor with the knees fully extended (1 point) 1 Total Score (out of 9 points) 7 *positive if >=6 for prepubertal children >=5 for pubertal children and adults up to age 50 >=4 for those age >50 years PERTINENT STUDIES: EMG of the lower extremities (10/2023): normal ASSESSMENT: Mrs. Pink is a 34-year-old female with generalized hypermobility, arthralgias, history of multiple dislocations or subluxations, history of multiple ligamentous or muscular injuries (MCL, PCL, and rotator cuff), easy bruising, clinical diagnosis of POTS, fatigue, pes planus, recurrent nephrolithiasis, and significant dental issues requiring extraction of all teeth. Her presentation is concerning for a genetic etiology. I am particularly concerned for a genetic diagnosis which may explain her dental issues, such as periodontal EDS or hypophosphatasia. The next best step is to obtain a gene panel examining genes associated with connective tissue disorders. Will add on the ALPL gene to assess for hypophosphatasia. We discussed that regardless of etiology, the mainstay of treatment for hypermobility is physical therapy with focus on strengthening the muscles surrounding the hypermobile joint. While Mrs. Pink has not had success with PT in the past, she was amenable to a new referral. If we do not arrive at a genetic diagnosis, she meets criteria for hypermobile spectrum disorder, although this would not explain her dental findings. We also discussed her report of the BRCA1 variant that was obtained from [facility] and analyzed using non-clinical grade software. We discussed that hgtxsm-jz-vfeixnem testing is often wrong and clinical testing is preferred. A recent study suggests that up to 40% of genetic variation predicted to be pathogenic (disease-causing) on anjnxd-hp-imlpuvhr genetic testing that was sent for clinical confirmation are false positives. On the basis of her clinical and personal history, I do not recommend BRCA testing at this time. She expressed understanding. RECOMMENDATIONS: 1. [facility] Connective Tissue Disease Panel with add on ALPL 2. Referral to PT Many details of the above history were obtained by Gloria Read MS, [facility]. I have reviewed and agree with the documentation above. I spent a total of 90 minutes on the date of the service which included preparing to see the patient, [id number] patient care, completing clinical documentation, obtaining and/or reviewing separately obtained history, performing a medically appropriate examination, and counseling and educating the patient/family/caregiver. Jasbir Mehta MD, [facility] Clinical Rerecording Mixer Laboratory Chemical Assistant, Department of Medical Genetics and Genomics The [address]/ [place] [address] Appointments: or [facility] CC: Gloria Read MS, [facility] CC: Will Dupree [id number] [facility] [id number] documented in this encounter [facility] 10-08-2024 Note HNO ID: [id number] Author: JASBIR MEHTA DO Service: ? Author Type: Physician Type: Progress Notes Filed: 10/16/2024 10:35 Note Text: MEDICAL GENETICS CLINIC INITIAL VISIT Patient: Joesph Pink Date of : 1990 Clinic #: [id number] Consultation requested by: Dr. Will Dupree Date of visit: 10/07/2024 Recording using [employer] software for draft documentation of the visit was discussed with the patient/authorized business office representative; all questions welcomed and answered. Patient/authorized business office representative agreed to proceed Joesph Pink is accompanied to today's clinic visit by her mother. RECORDS REVIEWED PRIOR TO VISIT: [facility] EMR including but not limited to any available clinic notes, lab results, imaging reports, and cardiac studies. Information obtained from parents/patient and via medical record review Consultation requested by Dr. Dupree for an opinion regarding joint hypermobility and family history of abnormal genetic testing. My final recommendations will be communicated back to the requesting physician by way of shared Medical record or letter to requesting physician via US mail. 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 Joesph reports a history of hypermobility during childhood, which has decreased over time. She has experienced multiple joint dislocations and subluxations, including the shoulder, hips, and knee. She denies any history of fractures but has had a torn MCL, PCL, and rotator cuff under the age of 22, which required surgery. These injuries were not trauma-related but were due to use. She reports joint pain and has had all her teeth removed due to severe cavities and tooth loss, with her dentist noting severe bone loss. She also has a narrow palate and endorses a history of delayed wound healing, abnormal scarring, hyperextensible skin, easy bruising, and prolonged bleeding. She notes difficulty with adhesive bandages. She has numerous tattoos and report these took about 1 week longer to heal than expected. She required iron transfusions in the past due to severe fibroids and had a hysterectomy related to that. She is unsure if she has had an echocardiogram but thinks she does and it noted some enlargement of the right side of her heart. She has myopia and severe astigmatism but no history of retinal tear or detachment. She is suspected to have POTS but has not undergone a tilt table test. She reports difficulty staying asleep, fatigue, anxiety, and depression. She has stretch rodriguez, high arches, and a history of hip dysplasia that required bracing on her legs. She is suspected to have autism but hasn't been formally evaluated and has ADHD. She also has urticarian eczema with no known triggers. She reports proximal muscle weakness in her legs and arms, which she was told was due to degenerative disc disease and a history of spina bifida occulta. She gets recurrent kidney stones every other month and usually passes them on her own with medication. She has not had genetic testing. Although the referral states there is a family history of abnormal genetic testing, this is denied. Upon chart review, a BRCA1 variant was reported. She reports that she has not had clinical grade genetic testing. She had testing through and hi and ran the raw data through a program. PAST MEDICAL HISTORY: Aside from above: Menometrorrhagia Dysmenorrhea Leiomyoma of uterus Adenomyosis Blood loss anemia requiring infusions Bipolar Disorder PAST SURGICAL HISTORY: Hysterectomy MEDICATIONS: Current Outpatient Medications on File Prior to Visit Medication Sig Amphetamine-Dextroamphetamine (ADDERALL) 30 mg tablet Take 1 tablet by mouth every afternoon. methocarbamol (ROBAXIN) 750 mg tablet Take 750 mg by mouth daily at bedtime. pregabalin (LYRICA) 75 mg capsule TAKE 1 CAPSULE BY MOUTH ONCE DAILY at EIGHT IN THE EVENING No current facility-administered medications on file prior to visit. ALLERGIES: ALLERGIES Allergen Reactions Percocet [Oxycodone* Hives SOCIAL HISTORY: Lives in [place] with her mother, , and three kids. Employment: Unemployed Level of education: Completed college Alcohol/cigarettes/other: Medical marijuana FAMILY HISTORY: A four generation pedigree was collected by Gloria Read MS, [facility] at the patient's separate genetic counseling encounter. The pedigree will be scanned into [employer]. This information was reviewed with the family and modified as necessary; refer to the genetic counseling encounter and formal pedigree for other details on the family history. - Patient's ethnicity: Maternal Mongolian/Elisabet; Paternal Burkinan/Mongolian/ AJ. - Partner's ethnicity: not applicable. - No known -Djiboutian, Mediterranean, /, [place] Citizen-Comoran/Cajun, or Ashkenazi Evangelical ancestry unless noted above. - P (more content not included)... [facility] 10-08-2024 Note HNO ID: [id number] Author: GLORIA READ LGC Service: ? Author Type: Genetic Counselor Type: Progress Notes Filed: 10/18/2024 13:16 Note Text: Patient Name and confirmed at initiation of visit Dr. Will Dupree requested a genetic consultation for Joesph Pink, a 34 year old female, for discussion of her personal history of tooth loss and joint pain. Prior to the visit, the genetic counselor reviewed records in the patient's EMR including, but not limited to, available clinic notes, physician consultations, laboratory tests, imaging reports, cardiac studies, and other investigations and evaluations. The genetic counselor also reviewed the case with Dr. Mehta as needed prior to seeing the patient. The patient was accompanied to today's appointment by her mother. HISTORY OF PRESENT CONDITION: Joesph is a 34 year old female who was referred to be evaluated for a connective tissue disorder based on her personal and family history. She herself acknowledge a history of joint dislocations involving her hips, shoulders and knees as well as subluxations. 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 Prior to 22, she required surgery to repair a torn mcl, pcl, and rotator cuff that were torn due to use not injury. She has an extensive dental history including multiple cavities despite good oral hygiene, tooth loss, bone loss, and a narrow palate. She is acquiring dentures due to this history and multiple paternal family members also have similar dental concerns. Ms. Pink believes she has had an echocardiogram in the past that demonstrated an enlarged right side of her heart per her report (no copy of echo available). 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 Joesph denies a history of all of the following: chest wall abnormalities, organ rupture/prolapse, aneurysms, and hearing loss. Other health history includes ADHD and suspected autism, migraines, ?proximal muscle weakness, sun/cold induced urticaria, allergies, and chronic kidney stones. Ms. Pink was evaluated today by Dr. Mehta and additional history is available in her note. PERTINENT PAST MEDICAL AND SURGICAL HISTORY INCLUDES: No past medical history on file. No past surgical history on file. PREVIOUS GENETIC TESTING: -None SOCIAL HISTORY: Lives in [place] with her mother, , and three kids. Employment: Unemployed Level of education: Completed college Alcohol/cigarettes/other: Medical marijuana FAMILY HISTORY: - Patient's ethnicity: Maternal Mongolian/Elisabet; Paternal Burkinan/Mongolian/ AJ. - Partner's ethnicity: not applicable. - No known -Djiboutian, Mediterranean, /, [place] Citizen-Comoran/Cajun, or Ashkenazi Evangelical ancestry unless noted above. - Parental consanguinity: No A 4 generation pedigree was collected and will be scanned below. Pertinent findings are noted. Children: 12 yo and 9 yo daughter who are hypermobile. The 12 yo also has ADHD and the 9 yo has allergies. Full siblings and their children: Younger brother who also has poor dentition where he is losing teeth and likely needs dentures. He is hypermobile and has flat feet. Maternal half siblings and their children: None Paternal half siblings and their children: 32 yo ssiter who has ankylosying spondylitis and her son is autisitic. Parental losses: None Mother: 56 years old. History of MS, joint pain, and type II diabetes.. Maternal relatives: Of significance, two aunts had MIKAYLA due to fibroids. Uncle passed at 59 from complications of diabetes and he had leukemia. Father: 59 years old. History of extensive cavities and teeth falling out. He is bow legged and has joint pain. He had a TIA at 30 thought to be due to protein C deficiency. Paternal relatives: Of significance, almost all of Joesph 's aunts and uncles as well as first cousins have required dentures around 30. They also have joint pain. In addition, she has a first cousin who has cleft lip and palate as well as unilateral polydactyly. Grandfather's sister and brother also had cleft lip and palate. One aunt had colon cancer in her 50s. . The remainder of Ms. Pink's reported family history is negative for known or suspected genetic disease, defects, developmental delay/intellectual disability, infertility, recurrent loss, and unexplained infant .. GENETIC COUNSELING RISK ASSESSMENT AND DISCUSSION: Joesph Pink is a 34 year old female who presents for evaluation for a connective tissue disorder. Dr. Mehta's physical (more content not included)... [facility] 10-08-2024 History of Present illness Narrative Patient Name and confirmed at initiation of visit Dr. Will Dupree requested a genetic consultation for Joesph Pink, a 34 year old female, for discussion of her personal history of tooth loss and joint pain. Prior to the visit, the genetic counselor reviewed records in the patient's EMR including, but not limited to, available clinic notes, physician consultations, laboratory tests, imaging reports, cardiac studies, and other investigations and evaluations. The genetic counselor also reviewed the case with Dr. Mehta as needed prior to seeing the patient. The patient was accompanied to today's appointment by her mother. HISTORY OF PRESENT CONDITION: Joesph is a 34 year old female who was referred to be evaluated for a connective tissue disorder based on her personal and family history. She herself acknowledge a history of joint dislocations involving her hips, shoulders and knees as well as subluxations. 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 Prior to 22, she required surgery to repair a torn mcl, pcl, and rotator cuff that were torn due to use not injury. She has an extensive dental history including multiple cavities despite good oral hygiene, tooth loss, bone loss, and a narrow palate. She is acquiring dentures due to this history and multiple paternal family members also have similar dental concerns. Ms. Pink believes she has had an echocardiogram in the past that demonstrated an enlarged right side of her heart per her report (no copy of echo available). 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 Joesph denies a history of all of the following: chest wall abnormalities, organ rupture/prolapse, aneurysms, and hearing loss. Other health history includes ADHD and suspected autism, migraines, ?proximal muscle weakness, sun/cold induced urticaria, allergies, and chronic kidney stones. Ms. Pink was evaluated today by Dr. Mehta and additional history is available in her note. PERTINENT PAST MEDICAL AND SURGICAL HISTORY INCLUDES: No past medical history on file. No past surgical history on file. PREVIOUS GENETIC TESTING: -None SOCIAL HISTORY: Lives in [place] with her mother, , and three kids. Employment: Unemployed Level of education: Completed college Alcohol/cigarettes/other: Medical marijuana FAMILY HISTORY: - Patient's ethnicity: Maternal Mongolian/Elisabet; Paternal Burkinan/Mongolian/ AJ. - Partner's ethnicity: not applicable. - No known -Djiboutian, Mediterranean, /, [place] Citizen-Comoran/Cajun, or Ashkenazi Evangelical ancestry unless noted above. - Parental consanguinity: No A 4 generation pedigree was collected and will be scanned below. Pertinent findings are noted. Children: 12 yo and 9 yo daughter who are hypermobile. The 12 yo also has ADHD and the 9 yo has allergies. Full siblings and their children: Younger brother who also has poor dentition where he is losing teeth and likely needs dentures. He is hypermobile and has flat feet. Maternal half siblings and their children: None Paternal half siblings and their children: 32 yo ssiter who has ankylosying spondylitis and her son is autisitic. Parental losses: None Mother: 56 years old. History of MS, joint pain, and type II diabetes.. Maternal relatives: Of significance, two aunts had MIKAYLA due to fibroids. Uncle passed at 59 from complications of diabetes and he had leukemia. Father: 59 years old. History of extensive cavities and teeth falling out. He is bow legged and has joint pain. He had a TIA at 30 thought to be due to protein C deficiency. Paternal relatives: Of significance, almost all of Joesph 's aunts and uncles as well as first cousins have required dentures around 30. They also have joint pain. In addition, she has a first cousin who has cleft lip and palate as well as unilateral polydactyly. Grandfather's sister and brother also had cleft lip and palate. One aunt had colon cancer in her 50s. . The remainder of Ms. Pink's reported family history is negative for known or suspected genetic disease, defects, developmental delay/intellectual disability, infertility, recurrent loss, and unexplained infant .. GENETIC COUNSELING RISK ASSESSMENT AND DISCUSSION: Joesph Pink is a 34 year old female who presents for evaluation for a connective tissue disorder. Dr. Mehta's physical examination will be documented in her note from today's visit. We briefly discussed the etiology of connective tissue disorders, which encompasses a group of conditions that can affect multiple parts of the body, such as the skeletal system (such as joint hypermobility, scoliosis, chest wall defects), skin (such as abnormal scarring, increased extensibility), eyes (such as myopia), and cardiovascular system (such as aortic dilation or aneurysm). There are multiple genetic syndromes that fall into the category of connective tissue disorders. For some of these conditions, such as Marfan syndrome and the vascular type of Chantell Danlos syndrome, the genetics of these disorders is well understood and clinical genetic testing is available. For other disorders, such as the hypermobile type of EDS, the genetic cause is not yet known. After this discussion, Joesph Pink met with Dr. Mehta . Please see her note for assessment and plan. Briefly, Joesph Pink's physical exam was significant for hypermobility, piezogenic papules and tooth loss. Dr. Mehta did feel that her physical exam and clinical features were suggestive of an underlying connective tissue disorder such as periodontal Chantell Danlos syndrome, therefore genetic testing was recommended after today's evaluation. 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 Hypophosphatasia is an inherited disorder that affects the development of bones and teeth. This condition disrupts a process called mineralization, which is critical for the formation of strong bones and teeth that can withstand chewing and grinding. Hypophosphatasia is a variable condition and can appear anywhere from before to adulthood. The most severe forms of the disorder tend to occur before and in early infancy. Hypophosphatasia weakens and softens the bones, which can cause skeletal abnormalities in infancy in severe forms. Hypophosphatasia that appears in childhood or adulthood can present as premature loss of primary teeth in children or as osteomalacia with recurrent fractures in adulthood with possible loss of adult teeth. The mildest form (odontohypophosphatasia) only affects the teeth with premature tooth loss, but do not have skeletal differences. She has features consistent with this condition as well which is why genetic testing for the ALPL gene was recommended. The benefits, risks, and limitations of testing including the possibility of variants of uncertain significance and incidental findings were discussed in detail. She agreed to third constitution party billing through [employer] Connective Tissue Disorder panel with ALPL added on. Results will be communicated once available. FOLLOW-UP PLAN: 1. Test for Connective tissue panel plus ALPL through [employer] via third constitution party billing. 2. Follow up in Genetics is dependent on the results of genetic testing and will be discussed at the time of result disclosure, or sooner if additional concerns arise. 3. See Dr. Rivers's note for any additional recommendations. I spent a total of 73 minutes on the date of the service, which included preparing to see the patient, [id number] patient care, completing clinical documentation, obtaining and/or reviewing separately obtained history, counseling and educating the patient/family/caregiver, ordering tests, communicating with other HCPs (not separately reported), and care coordination (not separately reported). This plan is being carried out under the oversight and/or per the recommendations of Dr. Mehta. The results of this consult will be communicated with the referring provider and PCP. Clinic note will be available to the patient via [employer]. Gloria Read M.S., C.G.C Licensed, Certified Genetic Counselor [facility] CC: Dr. Leia Mehta documented in this encounter [facility] 10-05-2024 Telephone encounter Note Attempted to reach PT to follow up on previous conversation about records from RP. Left a vague VM on an unidentified voicemail box. Explained that I would also be following up with a MyChart message that they could respond there or provided the [facility] line for a call back. Amber Murphy Genetic Counseling Commissioning Agent [facility] 10-05-2024 Miscellaneous Notes Attempted to reach PT to follow up on previous conversation about records from [facility]. Left a vague VM on an unidentified voicemail box. Explained that I would also be following up with a MyChart message that they could respond there or provided the [facility] line for a call back. Amber Murphy Genetic Counseling Commissioning Agent documented in this encounter [facility] 08-28-2024 Telephone encounter Note Received a call from PT looking to have records sent to genetics prior to her appt. PT explained that her RP would like to send records over but the file was too large to send by fax. [email or web address] was provided. She had no further questions at this time. Amber Murphy Genetic Counseling Commissioning Agent [facility] 08-28-2024 Miscellaneous Notes Received a call from PT looking to have records sent to genetics prior to her appt. PT explained that her RP would like to send records over but the file was too large to send by fax. [email or web address] was provided. She had no further questions at this time. Amber Mruphy Genetic Counseling Commissioning Agent documented in this encounter [facility] 05-07-2024 History of Present illness Narrative Images from the original note were not included. Gagandeep Kumar MD Obstetrics and Gynecology Patient: Joesph Shin Joesph, : 1990 (33 y.o.) DOS 05/07/24 Exam Date: 05/07/2024 HPI: Pt has developed pain in the right breast. She now feels a lump. She has a BRCA mutaion. She is taking ERT following hysterectomy Visit Vitals BP 130/82 Wt 211 lb LMP 01/01/2024 BMI 37.38 kg/m OB Status Hysterectomy Smoking Status Never BSA 2.06 m OB History Para Term AB Living 2 2 2 0 0 2 SAB IAB Ectopic Multiple Live Births 0 0 0 0 2 # Outcome Date GA Lbr Sae/2nd Weight Sex Type Anes PTL Lv 2 Term 1 Term Obstetric Comments Pap: 03/22-Neg ROSALINA; HPV Neg Hysterectomy/BSO normal cervix Medication and Allergies Medication Documentation Review Audit Reviewed by Gayla Samaniego MA (Sexual Assault Counselor) on 05/07/24 at 1553 Medication Order Taking? Sig Documenting Provider Last Dose Status albuterol HFA 90 mcg/act inhaler [id number] INHALE 2 PUFFS BY MOUTH EVERY 4 HOURS NEEDED FOR WHEEZING or SHORTNESS OF BREATH Gagandeep Kumar MD Active amphetamine-dextroamphetamine (Adderall) 30 MG tablet [id number] Take 1 tablet by mouth Daily Gagandeep Kumar MD Active estradiol (Vivelle-DOT) 0.1 MG/24HR [id number] Place 1 patch over 96 hours on the skin 2 (two) times a week Gagandeep Kumar MD Active FLUoxetine (PROzac) 10 MG capsule [id number] Take 20 mg by mouth in the morning. Gagandeep Kumar MD Active fluticasone (Flonase Allergy Relief) 50 MCG/ACT nasal spray [id number] 1 (one) time each day at the same time Gagandeep Kumar MD Active methocarbamol (Robaxin) 750 MG tablet [id number] Take 750 mg by mouth at bedtime Gagandeep Kumar MD Active montelukast (Singulair) 10 MG tablet [id number] Take 10 mg by mouth Daily Gagandeep Kumar MD Active pregabalin (Lyrica) 50 MG capsule [id number] Take 50 mg by mouth at bedtime Gagandeep Kumar MD Active triamcinolone (Kenalog) 0.1 % cream [id number] APPLY TO THE AFFECTED AREA(S) topically TWICE DAILY Gagandeep Kumar MD Active Allergies Allergen Reactions Oxycodone GI intolerance and Itching Acetaminophen Other Miralax [Polyethylene Glycol] Other Prednisone & Diphenhydramine Unknown Gabapentin Anxiety and Other Oxycodone-Acetaminophen GI intolerance, Hives, Itching and Rash Past Medical History: Diagnosis Date ADHD (CMS/HCC) Anemia Asthma (CMS/HCC) Fibromyalgia Past Surgical History: Procedure Laterality Date ADENOIDECTOMY CHOLECYSTECTOMY GASTRIC BYPASS + skin removal HYSTERECTOMY TONSILLECTOMY TUBAL LIGATION Bilateral VAGINAL DELIVERY x2 Physical Exam: Objective Physical Exam Constitutional: Appearance: Normal appearance. Genitourinary: Genitourinary Comments: She has an area of tender fullness/consolidation of the right breast Breasts: Left: Normal. Chest: Neurological: Mental Status: She is alert. Associated Treatments and Results - ICD-10-CM 1. Mass of upper outer quadrant of right breast N63.11 Bilateral diagnostic mammogram with tomosynthesis Right breast US complete Check marek dx mammo/sono right breast Assessment/Plan Orders Placed This Encounter Procedures Bilateral diagnostic mammogram with tomosynthesis Standing Status: Future Standing Expiration Date: 07/08/2025 Order Specific Question: Is the patient ? Answer: No Order Specific Question: Reason for exam: Answer: lump at 12 o'clock Right breast US complete Standing Status: Future Standing Expiration Date: 07/08/2025 Order Specific Question: Reason for exam: Answer: lump at 12 o'clock documented in this encounter [facility] 03-29-2024 History of Present illness Narrative Images from the original note were not included. Gagandeep Kumar MD Obstetrics and Gynecology Patient: Joesph Pink, : 1990 (33 y.o.) DOS 03/29/24 Exam Date: 03/29/2024 HPI: 2 weeks postop from TLH/BSO. PATH all benign She feels great. Her preop pain is gone. She is having hotflashes Visit Vitals BP 122/82 Wt 210 lb LMP 01/01/2024 BMI 37.20 kg/m OB Status Hysterectomy Smoking Status Never BSA 2.06 m OB History Para Term AB Living 2 2 2 0 0 2 SAB IAB Ectopic Multiple Live Births 0 0 0 0 2 # Outcome Date GA Lbr Sae/2nd Weight Sex Type Anes PTL Lv 2 Term 1 Term Obstetric Comments Pap: 03/22-Neg ROSALINA; HPV Neg Hysterectomy/BSO normal cervix Medication and Allergies Medication Documentation Review Audit Reviewed by Gayla Samaniego MA (Sexual Assault Counselor) on 03/29/24 at 1000 Medication Order Taking? Sig Documenting Provider Last Dose Status albuterol HFA 90 mcg/act inhaler [id number] INHALE 2 PUFFS BY MOUTH EVERY 4 HOURS NEEDED FOR WHEEZING or SHORTNESS OF BREATH Gagandeep Kumar MD Active amphetamine-dextroamphetamine (Adderall) 30 MG tablet [id number] Take 1 tablet by mouth Daily Gagandeep Kumar MD Active FLUoxetine (PROzac) 10 MG capsule [id number] Yes Take 20 mg by mouth in the morning. Gagandeep Kumar MD Active fluticasone (Flonase Allergy Relief) 50 MCG/ACT nasal spray [id number] 1 (one) time each day at the same time Gagandeep Kumar MD Active methocarbamol (Robaxin) 750 MG tablet [id number] Take 750 mg by mouth at bedtime Gagandeep Kumar MD Active montelukast (Singulair) 10 MG tablet [id number] Take 10 mg by mouth Daily Gagandeep Kumar MD Active pregabalin (Lyrica) 50 MG capsule [id number] Take 50 mg by mouth at bedtime Gagandeep Kumar MD Active triamcinolone (Kenalog) 0.1 % cream [id number] APPLY TO THE AFFECTED AREA(S) topically TWICE DAILY Gagandeep Kumar MD Active Allergies Allergen Reactions Oxycodone GI intolerance and Itching Acetaminophen Other Miralax [Polyethylene Glycol] Other Prednisone & Diphenhydramine Unknown Gabapentin Anxiety and Other Oxycodone-Acetaminophen GI intolerance, Hives, Itching and Rash Past Medical History: Diagnosis Date ADHD (CMS/HCC) Anemia Asthma (CMS/HCC) Fibromyalgia Past Surgical History: Procedure Laterality Date ADENOIDECTOMY CHOLECYSTECTOMY GASTRIC BYPASS + skin removal HYSTERECTOMY TONSILLECTOMY TUBAL LIGATION Bilateral VAGINAL DELIVERY x2 Physical Exam: Objective Physical Exam Genitourinary: Vulva normal. Vaginal cuff intact. Vaginal discharge and cuff induration present. No vaginal bleeding. Right Adnexa: absent. Left Adnexa: absent. Cervix is absent. Uterus is absent. Pulmonary: Effort: Pulmonary effort is normal. Abdominal: Palpations: Abdomen is soft. Comments: Incisions intact and nearly healed Associated Treatments and Results - ICD-10-CM 1. Surgery follow-up Z09 2. Menometrorrhagia N92.1 3. 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 Dysmenorrhea N94.6 5. Chronic blood loss anemia D50.0 6. Adenomyosis N80.03 7. 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 Menopausal symptoms N95.1 Start estradiol patch Assessment/Plan No orders of the defined types were placed in this encounter. documented in this encounter [facility] 03-08-2024 History of Present illness Narrative Images from the original note were not included. [address] [facility] [address] [facility] [address] Date of Service: 03/08/2024 Subjective: Joesph Pink is a 33 y.o. female who presents today for evaluationPositive AMISHA . Patient is seen at the request of BIA FRANZ MD. This is follow-up visit with this patient who is 33-year-old female patient presenting today as an established patient for follow-up of fibromyalgia who was seen 1st time on08/23/2022 .Last time was seen 05/31/2023 Patient's history dates back to 02/2021 when [...] 08/23/2022 AMISHA IFA negative, complements normal, anti JEWELRY DESIGNER 1.7 AI, vitamin-D 11.9 ng/mL normal, urinalysis [...] anti DNA negative Current medications including Lyrica 75 mg and Robaxin 750,n addition to vitamin B12 and naltrexone. Savella was prescribed however was not approved by insurance At this point patient patient continued to be symptomatic The following portions of the patient's history were reviewed and updated as appropriate: allergies, current medications, past family history, past medical history, past social history, past surgical history and problem list. Review of Systems: Review of Systems Constitutional: Positive for fatigue (02/06). HENT: Dry mouth Eyes: Dry Genitourinary: Renal stone Musculoskeletal: Positive for arthralgias (Left hip). Psychiatric/Behavioral: Positive for sleep disturbance. Current Outpatient Medications Medication Sig Dispense Refill cetirizine (ZyrTEC) 10 mg tablet Take 1 tablet (10 mg total) by mouth in the morning. 90 tablet 3 cyanocobalamin (vitamin B-12) 1000 MCG tablet Take 1 tablet (1,000 mcg total) by mouth in the morning. 90 tablet 2 dextroamphetamine-amphetamine (ADDERALL) 30 mg tablet Take 1 tablet (30 mg total) by mouth in the morning. EPINEPHrine (EPIPEN) 0.3 mg/0.3 mL auto-injector Inject 0.3 mL (0.3 mg total) into the appropriate muscle as needed (anaphylaxis). 2 each 1 ergocalciferol (VITAMIN D2) 1,250 mcg (50,000 unit) capsule Capsule weekly for 8 weeks then once monthly 12 capsule 0 FLUoxetine (PROzac) 10 mg capsule Take 2 capsules (20 mg total) by mouth in the morning. 30 capsule 5 fluticasone propionate (FLONASE) 50 mcg/actuation nasal spray Administer 2 sprays into each nostril in the morning. 16 mL 12 methocarbamoL (ROBAXIN) 750 mg tablet Take 1 tablet (750 mg total) by mouth once daily at bedtime. 90 tablet 1 naltrexone HCl (NALTREXONE ORAL) Take 4 mg by mouth in the morning. pregabalin (LYRICA) 100 mg capsule One capsule at 8 PM each night 90 capsule 1 syringe with needle, safety 3 mL 22 gauge x 1 1/2 syringe Use to inject Vit B 12 intramuscular 12 each 0 No current facility-administered medications for this visit. Physical Exam: Physical Exam Vitals and nursing [...] Comments: Symmetrical tender trigger points No synovitis Painful movement left hip Skin: General: Skin is warm and dry. [...] -- Tender (HE-28): -- Swollen (HE-28): -- Resp 18 Ht 160 cm (5' 2.99 ) BMI 37.56 kg/m : reviewed Labs and Imaging: reviewed and discussed with the patient during the visit.I Lab Results Component Value Date WBC 9.7 01/14/2024 HGB 13.9 01/14/2024 HCT 40.3 01/14/2024 MCV 95 01/14/2024 CRP <0.1 08/23/2022 C3 138 08/23/2022 C4 23 08/23/2022 AST 20 08/23/2022 Imaging: Assessment and Plan: Joesph Pink is a 33 y.o. female patient with: 1. Fibromyalgia - pregabalin (LYRICA) 100 mg capsule; One capsule at 8 PM each night Dispense: 90 capsule; Refill: 1 - methocarbamoL (ROBAXIN) 750 mg tablet; Take 1 tablet (750 mg total) by mouth once daily at bedtime. Dispense: 90 tablet; Refill: 1 - FLUoxetine (PROzac) 10 mg capsule; Take 2 capsules (20 mg total) by mouth in the morning. Dispense: 30 capsule; Refill: 5 At this patient continued to have pain as well as fatigability. Will increase dose of Lyrica and add fluoxetine addition to Robaxin, in addition she is also on naltrexone. Patient did not tolerate Cymbalta Return to clinic 6 months This note was created with the assistance of a speech recognition program. While intending to generate a timely document that accurately reflects the content of the visit, no guarantee can be provided that every grammatical or spelling mistake has been or will be identified or corrected. Thank you for your understanding. [facility] Rheumatology Dr. Jarod Weeks MD [address], [address] [place] [address] Office: [phone] documented in this encounter [facility] 02-29-2024 History of Present illness Narrative Images from the original note were not included. Gagandeep Kumar MD Obstetrics and Gynecology Patient: Joesph Pink, : 1990 (33 y.o.) DOS 02/29/24 Exam Date: 02/29/2024 HPI: Pt has heavy, painful periods wth chronic blood loss anemia requiring iron infusions. She has informed ne today that she carries a BRCA 1 mutation Sono today shows an enlarged uterus with fibroids and adenomyosis. Normal ovaries Visit Vitals BP 132/86 Wt 206 lb LMP 01/01/2024 BMI 36.49 kg/m OB Status Having periods Smoking Status Never BSA 2.04 m OB History Para Term AB Living 2 2 2 0 0 2 SAB IAB Ectopic Multiple Live Births 0 0 0 0 2 # Outcome Date GA Lbr Sae/2nd Weight Sex Type Anes PTL Lv 2 Term 1 Term Obstetric Comments Pap: 01/20-Unsatisfactory; HPV Neg LMP 01/01/24 monthly, heavy blood loss, last 14-40 days Medication and Allergies Medication Documentation Review Audit Reviewed by Gayla Samaniego MA (Sexual Assault Counselor) on 02/29/24 at 1318 Medication Order Taking? Sig Documenting Provider Last Dose Status albuterol HFA 90 mcg/act inhaler [id number] Yes INHALE 2 PUFFS BY MOUTH EVERY 4 HOURS NEEDED FOR WHEEZING or SHORTNESS OF BREATH Gagandeep Kumar MD Active amphetamine-dextroamphetamine (Adderall) 30 MG tablet [id number] Take 1 tablet by mouth Daily Gagandeep Kumar MD Active methocarbamol (Robaxin) 750 MG tablet [id number] Take 750 mg by mouth at bedtime Gagandeep Kumar MD Active montelukast (Singulair) 10 MG tablet [id number] Yes Take 10 mg by mouth Daily Gagandeep Kumar MD Active pregabalin (Lyrica) 50 MG capsule [id number] Take 50 mg by mouth at bedtime Gagandeep Kumar MD Active triamcinolone (Kenalog) 0.1 % cream [id number] APPLY TO THE AFFECTED AREA(S) topically TWICE DAILY Gagandeep Kumar MD Active Allergies Allergen Reactions Oxycodone GI intolerance and Itching Gabapentin Anxiety and Other Oxycodone-Acetaminophen GI intolerance, Hives, Itching and Rash Past Medical History: Diagnosis Date ADHD (CMS/HCC) Anemia Asthma (CMS/HCC) Fibromyalgia Past Surgical History: Procedure Laterality Date ADENOIDECTOMY CHOLECYSTECTOMY GASTRIC BYPASS + skin removal TONSILLECTOMY TUBAL LIGATION Bilateral VAGINAL DELIVERY x2 Physical Exam: Objective OBGyn Exam Constitutional: Appearance: Normal appearance. Genitourinary: Vulva normal. Vaginal bleeding present. No vaginal discharge. Right Adnexa: not palpable. Left Adnexa: not palpable. No cervical lesion. Uterus is tender. Uterus is not enlarged. Breasts: Right: Normal. Left: Normal. Pulmonary: Effort: Pulmonary effort is normal. Abdominal: Palpations: Abdomen is soft. Neurological: Mental Status: She is alert. Associated Treatments and Results - ICD-10-CM 1. Menometrorrhagia N92.1 2. Subserous leiomyoma of uterus D25.2 3. Dysmenorrhea N94.6 4. Chronic blood loss anemia D50.0 5. Adenomyosis N80.03 6. Cervical cancer screening Z12.4 IGP, APT HPV,RFX 16/18,45 7. Screening for HPV (human papillomavirus) Z11.51 IGP, APT HPV,RFX 16/18,45 8. Unsatisfactory cervical Papanicolaou smear R87.615 IGP, APT HPV,RFX 16/18,45 9. 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 Answer: No documented in this encounter [facility] 02-13-2024 History of Present illness Narrative Images from the original note were not included. Gagandeep Kumar MD Obstetrics and Gynecology Patient: Joesph Pink, : 1990 (33 y.o.) DOS 02/13/24 Exam Date: 02/13/2024 HPI: Pt has heavy, painful periods wth chronic blood loss anemia requiring iron infusions. Sono today shows an enlarged uterus with fibroids and adenomyosis. Normal ovaries Visit Vitals BP 160/80 Wt 212 lb LMP 01/01/2024 (Approximate) BMI 37.55 kg/m OB Status Having periods Smoking Status Never BSA 2.07 m OB History Para Term AB Living 2 2 2 0 0 2 SAB IAB Ectopic Multiple Live Births 0 0 0 0 2 # Outcome Date GA Lbr Sae/2nd Weight Sex Type Anes PTL Lv 2 Term 1 Term Obstetric Comments Pap: 01/20-Unsatisfactory; HPV Neg LMP 01/01/24 monthly, heavy blood loss, last 14-40 days Medication and Allergies Medication Documentation Review Audit Reviewed by Anna Welsh RN (Registered Nurse) on 02/13/24 at 1352 Medication Order Taking? Sig Documenting Provider Last Dose Status amphetamine-dextroamphetamine (Adderall) 30 MG tablet [id number] Take 1 tablet by mouth Daily Gagandeep Kumar MD Active methocarbamol (Robaxin) 750 MG tablet [id number] Take 750 mg by mouth at bedtime Gagandeep Kumar MD Active pregabalin (Lyrica) 50 MG capsule [id number] Take 50 mg by mouth at bedtime Gagandeep Kumar MD Active triamcinolone (Kenalog) 0.1 % cream [id number] APPLY TO THE AFFECTED AREA(S) topically TWICE DAILY Gagandeep Kumar MD Active Allergies Allergen Reactions Oxycodone GI intolerance and Itching Gabapentin Anxiety and Other Oxycodone-Acetaminophen GI intolerance, Hives, Itching and Rash Past Medical History: Diagnosis Date ADHD (CMS/HCC) Anemia Fibromyalgia Past Surgical History: Procedure Laterality Date ADENOIDECTOMY CHOLECYSTECTOMY GASTRIC BYPASS + skin removal TONSILLECTOMY TUBAL LIGATION Bilateral VAGINAL DELIVERY x2 Physical Exam: Objective OBGyn Exam Associated Treatments and Results - ICD-10-CM 1. Subserous leiomyoma of uterus D25.2 2. Menometrorrhagia N92.1 3. Dysmenorrhea N94.6 4. Chronic blood loss anemia D50.0 5. Adenomyosis N80.03 We reviewed her sono. We reviewed her symptoms. We discussed ablation vs IUD vs hysterectomy. She has had a TL and chooses definitivr tx in form of hysterectomy. Will seek prior auth for TLH/BS Assessment/Plan No orders of the defined types were placed in this encounter. documented in this encounter [facility] 01-19-2024 History of Present illness Narrative Images from the original note were not included. Gagandeep Kumar MD Obstetrics and Gynecology Patient: Joesph Pink, : 1990 (33 y.o.) DOS 01/19/24 Exam Date: 01/19/2024 HPI: Establishing care. She describes heavy periods with larg clots and terrible cramps. She has pain with intercourse. Her periods are prolonged, lasting weeks at at time She has chronic blood loss anemia and gets frequent iron infusuons Visit Vitals BP 126/84 Ht 5' 3 Wt 212 lb LMP 01/01/2024 (Approximate) BMI 37.55 kg/m OB Status Having periods Smoking Status Never BSA 2.07 m OB History Para Term AB Living 2 2 2 0 0 2 SAB IAB Ectopic Multiple Live Births 0 0 0 0 2 # Outcome Date GA Lbr Sae/2nd Weight Sex Type Anes PTL Lv 2 Term 1 Term Obstetric Comments Pap: 01/11-Neg ROSALINA: HPV Neg LMP 01/01/24 monthly, heavy blood loss, last 14-40 days Medication and Allergies Medication Documentation Review Audit Reviewed by Jessie Sánchez MA (Sexual Assault Counselor) on 01/19/24 at 1249 Medication Order Taking? Sig Documenting Provider Last Dose Status amphetamine-dextroamphetamine (Adderall) 30 MG tablet [id number] Take 1 tablet by mouth Daily Gagandeep Kumar MD Active methocarbamol (Robaxin) 750 MG tablet [id number] Take 750 mg by mouth at bedtime Gagandeep Kumar MD Active pregabalin (Lyrica) 50 MG capsule [id number] Yes Take 50 mg by mouth at bedtime Gagandeep Kumar MD Active triamcinolone (Kenalog) 0.1 % cream [id number] Yes APPLY TO THE AFFECTED AREA(S) topically TWICE DAILY Gagandeep Kumar MD Active Allergies Allergen Reactions Oxycodone GI intolerance and Itching Gabapentin Anxiety and Other Oxycodone-Acetaminophen GI intolerance, Hives, Itching and Rash Past Medical History: Diagnosis Date ADHD (CMS/HCC) Anemia Fibromyalgia Past Surgical History: Procedure Laterality Date ADENOIDECTOMY CHOLECYSTECTOMY GASTRIC BYPASS + skin removal TONSILLECTOMY TUBAL LIGATION Bilateral VAGINAL DELIVERY x2 Physical Exam: Objective Physical Exam Constitutional: Appearance: Normal appearance. Genitourinary: Vulva normal. Vaginal bleeding present. No vaginal discharge. Right Adnexa: not palpable. Left Adnexa: not palpable. No cervical lesion. Uterus is tender. Uterus is not enlarged. Breasts: Right: Normal. Left: Normal. Pulmonary: Effort: Pulmonary effort is normal. Abdominal: Palpations: Abdomen is soft. Neurological: Mental Status: She is alert. Associated Treatments and Results - ICD-10-CM 1. Menometrorrhagia N92.1 2. Cervical cancer screening Z12.4 IGP, APTIMA HPV, RFX 16/18,45 ([facility]) 3. Screening for HPV (human papillomavirus) Z11.51 IGP, APTIMA HPV, RFX 16/18,45 ([facility]) 4. control counseling Z30.09 5. Dysmenorrhea N94.6 6. Chronic blood loss anemia D50.0 Check sono and followup after for discussion Assessment/Plan Orders Placed This Encounter Procedures IGP, APTIMA HPV, RFX 16/18,45 ([facility]) Order Specific Question: Print requisition? Answer: No documented in this encounter [facility] 10-19-2023 History of Present illness Narrative Telemedicine Visit - Distance Health Virtual Visit Note Patient seen on [employer] Video Visit platform. Location of patient: [place] PCP: No primary care provider on file. History of Present Illness Joesph Pink is a 33 year old female who presents for a referral request. - Says her PCP was concerned for EDS and needs an internal referral to a senior business development analyst to be evaluated - Suspect EDS for [...] visit. Either the patient or their legal business office representative has been informed of the risks [...] AM documented in this encounter [facility] 09-28-2023 History of Present illness Narrative Patient is here for IV Venofer as scheduled. She has been tolerating infusions well. PIV initiated in left AC by Dillon Waters RN without incident and patient tolerated well. Brisk blood return verified and line flushes with ease. NS initiated as mainline at KVO rate. Venofer infused over 15 minutes without incident and patient tolerated well. Upon completion, IV flushed. Patient declined 30 minute observation, but agreeable to second set of VS. VS stable. PIV discontinued and pressure dressing applied. Patient discharged in stable condition to private vehicle. documented in this encounter [facility] 09-26-2023 History of Present illness Narrative Patient is here for IV Venofer as scheduled. She has been tolerating infusions well. PIV initiated in left AC without incident and patient tolerated well. Brisk blood return verified and line flushes with ease. NS initiated as mainline at KVO rate. Venofer infused over 15 minutes without incident and patient tolerated well. Upon completion, IV flushed. Patient declined 30 minute observation, but agreeable to second set of VS. VS stable. PIV discontinued and pressure dressing applied. Reviewed next appointment and patient discharged in stable condition to private vehicle. documented in this encounter [facility] 09-23-2023 History of Present illness Narrative Patient presents for Venofer infusion as scheduled. Patient denies issues with previous doses. PIV initiated, brisk blood return noted, flushed with ease. NS mainline infusing at 25 ml/hour. Venofer infused over 15 minutes as ordered without incidence. Patient declined 30 minute observation. Tolerated well, VS stable. PIV discontinued, gauze secured with coban in placed. Discharged ambulatory in stable condition to private vehicle documented in this encounter [facility] 09-19-2023 History of Present illness Narrative Patient presents for Venofer infusion as scheduled. Patient denies issues with previous doses. PIV initiated, brisk blood return noted, flushed with ease. NS mainline infusing at 25 ml/hour. Venofer infused over 15 minutes as ordered without incidence. Patient remained for 30 minute observation. Tolerated well, VS stable. PIV discontinued, gauze secured with coban in placed. Discharged ambulatory in stable condition to private vehicle. Treatment calendar provided. documented in this encounter [facility] 09-08-2023 History of Present illness Narrative Images from the original note were not included. [address] [facility] [address] Date of Service: 09/08/2023 Subjective: Joesph Pink is a 33 y.o. female who presents today for evaluationPositive AMISHA . Patient is seen at the request of BIA FRANZ MD. This is follow-up visit with this patient who is 33-year-old female patient presenting today as an established patient for follow-up of fibromyalgia who was seen 1st time on08/23/2022 .Last time was seen 05/31/2023 Patient's history dates back to 02/2021 when [...] 08/23/2022 AMISHA IFA negative, complements normal, anti JEWELRY DESIGNER 1.7 AI, vitamin-D 11.9 ng/mL normal, urinalysis [...] increased pain right knee as well as left hips. The following portions of the patient's history were reviewed and updated as appropriate: allergies, current medications, past family history, past medical history, past social history, past surgical history and problem list. Review of Systems: Review of Systems Constitutional: Positive for fatigue (02/06). HENT: Dry mouth Eyes: Dry Genitourinary: Renal stone Musculoskeletal: Positive for arthralgias (Left hip). Psychiatric/Behavioral: Positive for sleep disturbance. Current Outpatient Medications Medication Sig Dispense Refill cetirizine (ZyrTEC) 10 mg tablet Take 1 tablet (10 mg total) by mouth in the morning. 90 tablet 3 cyanocobalamin (VITAMIN B-12) 1,000 mcg/mL injection One 1000 mcg every other day for 10 days,then once weekly for 4 weeks then once monthly 3 mL 3 dextroamphetamine-amphetamine (ADDERALL) 30 mg tablet Take [...] 4 mg by mouth in the morning. syringe with needle, safety 3 mL 22 gauge x 1 1/2 syringe Use to inject Vit B 12 intramuscular 12 each 0 methocarbamoL (ROBAXIN) 750 mg tablet Take 1 tablet (750 mg total) by mouth once daily at bedtime. 90 tablet 1 milnacipran (SAVELLA) 50 mg tablet One tablet twice daily 60 tablet 5 milnacipran 12.5 mg (5)-25 mg(8)-50 mg(42) tablets,dose pack Use as prescribed 42 each 0 pregabalin (LYRICA) 75 mg capsule One capsule at 8 PM each night 90 capsule 1 No current facility-administered medications for this visit. Physical Exam: Physical Exam Vitals and nursing [...] Comments: Symmetrical tender trigger points No synovitis Painful movement left hip Skin: General: Skin is warm and dry. [...] Tender (HE-28): -- Swollen (HE-28): -- BP (!) 156/102 Resp 18 Ht 160 cm (5' 2.99 ) Wt 96.2 kg (212 lb) BMI 37.56 kg/m : reviewed Labs and Imaging: reviewed and discussed with the patient during the visit.I Lab Results Component Value Date WBC 4.7 05/14/2023 HGB 13.2 05/14/2023 HCT 39.0 05/14/2023 MCV 91 05/14/2023 CRP <0.1 08/23/2022 C3 138 08/23/2022 C4 23 08/23/2022 AST 20 08/23/2022 Imaging: Assessment and Plan: Joesph Pink is a 33 y.o. female patient with: 1. Fibromyalgia - methocarbamoL (ROBAXIN) 750 mg tablet; Take 1 tablet (750 mg total) by mouth once daily at bedtime. Dispense: 90 tablet; Refill: 1 - pregabalin (LYRICA) 75 mg capsule; One capsule at 8 PM each night Dispense: 90 capsule; Refill: 1 - milnacipran (SAVELLA) 50 mg tablet; One tablet twice daily Dispense: 60 tablet; Refill: 5 - milnacipran 12.5 mg (5)-25 mg(8)-50 mg(42) tablets,dose pack; Use as prescribed Dispense: 42 each; Refill: 0 - X-ray hips bilateral with or without pelvis 3-4 views; Future At this patient continued to have pain as well as fatigability. Will increase dose of Robaxin as well as amitriptyline and add Savella, patient did not tolerate Cymbalta previously, in addition she is also on naltrexone. X-ray both hips. Return to clinic 6 months This note was created with the assistance of a speech recognition program. While intending to generate a timely document that accurately reflects the content of the visit, no guarantee can be provided that every grammatical or spelling mistake has been or will be identified or corrected. Thank you for your understanding. [facility] Rheumatology Dr. Jarod Weeks MD [address], [address] [address] Office: [phone] documented in this encounter [facility] 05-31-2023 History of Present illness Narrative Images from the original note were not included. [address] [facility] [address] [facility] [address] Date of Service: 05/31/2023 Subjective: Joesph Pink is a 32 y.o. female who presents today for evaluationPositive AMISHA . Patient is seen at the request of BIA FRANZ MD. This is follow-up visit with this [...] 08/23/2022 AMISHA IFA negative, complements normal, anti JEWELRY DESIGNER 1.7 AI, vitamin-D 11.9 ng/mL normal, urinalysis [...] 40 mg 40 mg intra-articular Once Jarod Weesk MD triamcinolone acetonide (KENALOG-40) injection 40 mg [...] 20 08/23/2022 Imaging: Assessment and Plan: Joesph Pink is a 32 y.o. female patient with: [...] or corrected. Thank you for your understanding. [facility] Rhe[facility] Dr. Jarod Weeks MD [address], [address] [place] [address] Office: [phone] Rheumatology Procedure Site: Bilateral trochanteric bursa and [...] during the procedure documented in this encounter [facility] Evaluation note Diagnosis Hypermobility of joint- Primary Other joint derangement, not elsewhere classified, unspecified site [facility] Menometrorrhagia- Primary Excessive or frequent menstruation Subserous leiomyoma of uterus Dysmenorrhea Chronic blood loss anemia Iron deficiency anemia secondary to blood loss (chronic) Adenomyosis Endometriosis of uterus Cervical cancer screening Screening for malignant neoplasm of the cervix Screening for HPV (human papillomavirus) Special screening examination for human papillomavirus (HPV) Unsatisfactory cervical Papanicolaou smear BRCA1-associated protein-1 tumor predisposition syndrome documented in this encounter [facility] HealthcareEvaluation noteNo assessment information availableK[facility]tering [facility] Work Phone: Evaluation note* Diagnosis Surgery follow-up- Primary Menometrorrhagia Excessive or frequent menstruation Subserous leiomyoma of uterus Dysmenorrhea Chronic blood loss anemia Iron deficiency anemia secondary to blood loss (chronic) Adenomyosis Endometriosis of uterus BRCA1-associated protein-1 tumor predisposition syndrome Menopausal symptoms Symptomatic menopausal or female climacteric states documented in this encounter [facility] HealthcareEvaluation note* Diagnosis Subserous leiomyoma of uterus- Primary Menometrorrhagia Excessive or frequent menstruation Dysmenorrhea Chronic blood loss anemia Iron deficiency anemia secondary to blood loss (chronic) Adenomyosis Endometriosis of uterus documented in this encounter [facility] HealthcareEvaluation note* Diagnosis Mass of upper outer quadrant of right breast documented in this encounter [facility] HealthcareEvaluation note* Diagnosis Menometrorrhagia- Primary Excessive or frequent menstruation Cervical cancer screening Screening for malignant neoplasm of the cervix Screening for HPV (human papillomavirus) Special screening examination for human papillomavirus (HPV) control counseling Dysmenorrhea Chronic blood loss anemia Iron deficiency anemia secondary to blood loss (chronic) [facility] Menorrhagia with regular cycle- Primary Iron deficiency anemia due to chronic blood loss Iron deficiency anemia secondary to blood loss (chronic) documented [facility]* Diagnosis Greater trochanteric bursitis of both hips- Primary Fibromyalgia Unspecified myalgia and myositis Vitamin B 12 deficiency Other B-complex deficiencies Anserine bursitis documented in this encounter [facility]* Diagnosis Iron deficiency anemia due to chronic blood loss- Primary Iron deficiency anemia secondary to blood loss (chronic) Menorrhagia with regular cycle documented in this encounter [facility]* Diagnosis Iron deficiency anemia due to chronic blood loss- Primary Iron deficiency anemia secondary to blood loss (chronic) Menorrhagia with regular cycle documented in this encounter [facility]* Diagnosis Iron deficiency anemia due to chronic blood loss- Primary Iron deficiency anemia secondary to blood loss (chronic) Menorrhagia with regular cycle documented in this encounter [facility]* Diagnosis Fibromyalgia Unspecified myalgia and myositis documented in this encounter [facility]* Diagnosis Iron deficiency anemia due to chronic blood loss- Primary Iron deficiency anemia secondary to blood loss (chronic) Menorrhagia with regular cycle documented in this encounter [facility]* Diagnosis Fibromyalgia Unspecified myalgia and myositis documented in this encounter [facility]* Diagnosis Tooth loss- Primary Acquired absence of teeth, unspecified Generalized hypermobility of joints Other joint derangement, not elsewhere classified, multiple sites Arthralgia, unspecified joint [facility] Diagnosis Generalized hypermobility of joints- Primary Other joint derangement, not elsewhere classified, multiple sites History of dental problems Personal history of other specified diseases Arthralgia, unspecified joint History of dislocation Personal history of other musculoskeletal disorders History of subluxation of joint Personal history of other musculoskeletal disorders History of injury Personal history of other injury Easy bruising Other symptoms involving skin and integumentary tissues POTS (postural orthostatic tachycardia syndrome) Tachycardia, unspecified Fatigue, unspecified type Pes planus of both feet Recurrent nephrolithiasis Calculus of kidney [facility] Diagnosis History of subluxation of joint- Primary Personal history of other musculoskeletal disorders Generalized hypermobility of joints Other joint derangement, not elsewhere classified, multiple sites Pes planus of both feet documented in this encounter [facility] GeneralInstructionsNot on filedocumented in this encounterProMary [facility] SystemInstructionsNot on filedocumented in this encounterProSelect [facility] SystemInstructionsNot on filedocumented in this encounterPro[facility] SystemInstructionsNot on filedocumented in this encounterProSelect [facility] InstructionsNot on filedocumented in this encounterA[facility] InstructionsNot on filedocumented in this encounterAultman [facility] SystemReason for visit Narrative* Consult, Test, Treat (Routine) - Pending Review Specialty Diagnoses / Procedures Referred By Shivam ferrell Referred To Contact Diagnoses Hypermobility of joint Procedures CONSULT TO MEDICAL GENETICS - GENERAL OFFICE/OUTPATIENT [facility] 60 MINUTES MEDICAL GENETICS COUNSELING EACH 30 MINUTES Will Dupree DO [address] [place] [address] Phone: tel: fax: [place] [facility] [place] [address] Referral ID Status Reason Start Date Expiration Date Visits Requested Visits Authorized [id number] Pending Review PCP Requested Referral Auto-Generate d Referral 10/19/2023 10/18/2024 1 1 [facility] Summary Purpose Family History No Family History Records Found Relationship Condition Age at Onset Recorded Date/T gust[place] father Diabetes mellitus Unknown Hypertension Unknown mother Diabetes mellitus Unknown Multiple sclerosis Unknown Advance Directives No Advanced Directives Records Found Advance Directive Response Recorded Date/ Time Advance Directives No October 13 8 4:48pm Reason for Referral Specialty Diagnoses / Procedures Referred By Shivam ferrell Referred To Contact Diagnoses Hypermobility of joint Procedures CONSULT TO MEDICAL GENETICS - GENERAL OFFICE/OUTPATIENT [facility] 60 MINUTES MEDICAL GENETICS COUNSELING EACH 30 MINUTES Will Dupree DO [address] [place] [address] [facility] [address] [place], [place] [address] [place] [address] Referral ID Status Reason Start Date Expiration Date Visits Requested Visits Authorized [id number] Pending Review PCP Requested Referral Auto-Generate d Referral 10/19/2023 10/18/2024 1 1 Specialty Diagnoses / Procedures Referred By Contdenisse t Referred To Contact Diagnoses Fibromyalgia Jarod Weeks MD [address] [address] Referral ID Status Reason Start Date Expiration Date V isits Requested Visits Authorized [id number] Pending Review 1 1 Chief Complaint and Reason for Visit Chief Complaint Adenomyosis, Menomet rorrhagia, Dysmenorrhea, Chr Chief Complaint Adenomyosis, Menomet rorrhagia, Dysmenorrhea, Chr Adenomyosis, Menometrorrhagia, Dysmenorrhea, Chr Additional Source Comments INFORMATION SOURCE (unrecogn ized section and content) DATE CREATED AUTHOR 04/12/2018 [facility] DATE CREATED AUTHOR AUTHOR'S ORGANIZ ATION 11/26/2021 [facility] DATE CREATED AUTHOR AUTHOR'S ORGANIZ ATION 06/03/2023 [facility] DATE CREATED AUTHOR AUTHOR'S ORGANIZ ATION 01/27/2024 [facility] DATE CREATED AUTHOR AUTHOR'S ORGANIZ ATION 03/10/2024 [facility] DATE CREATED AUTHOR AUTHOR'S ORGANIZ ATION 04/22/2024 [facility] DATE CREATED AUTHOR AUTHOR'S ORGANIZ ATION 10/28/2024 [facility] DATE CREATED AUTHOR AUTHOR'S ORGANIZ ATION 11/19/2024 [facility] Special[facility] EPIC Source Comments (unrecognize d section and content) In the event this informatio n is protected by the Federal Confidentiality of Alcohol and Drug Abuse Patient Records regulations: The Federal rules restrict any use of the information to criminally investigate or prosecute any alcohol or drug abuse patient.[facility] GeneralIn the event this information is protected by the Federal Confidentiality of Alcohol and Drug Abuse Patient Records regulations: The Federal rules restrict any use of the information to criminally investigate or prosecute any alcohol or drug abuse patient.[facility] GeneralIn the event this information is protected by the Federal Confidentiality of Alcohol and Drug Abuse Patient Records regulations: The Federal rules restrict any use of the information to criminally investigate or prosecute any alcohol or drug abuse patient.[facility] GeneralIn the event this information is protected by the Federal Confidentiality of Alcohol and Drug Abuse Patient Records regulations: The Federal rules restrict any use of the information to criminally investigate or prosecute any alcohol or drug abuse patient.[facility] GeneralIn the event this information is protected by the Federal Confidentiality of Alcohol and Drug Abuse Patient Records regulations: The Federal rules restrict any use of the information to criminally investigate or prosecute any alcohol or drug abuse patient.[facility] GeneralIn the event this information is protected by the Federal Confidentiality of Alcohol and Drug Abuse Patient Records regulations: The Federal rules restrict any use of the information to criminally investigate or prosecute any alcohol or drug abuse patient.[facility] Reason for Visit (unrecogniz ed section and content) Reason Comments 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 Specialty Diagnoses / Procedures Referred By Contac t Referred To Contact Diagnoses Iron deficiency anemia due to chronic blood loss Menorrhagia with regular cycle Procedures AL IRON SUCROSE INJECTION Yadira Razo PA-C [address] [facility] [address] [place] [address] [facility] [place] [address] Referral ID Status Reason Start Date Expiration Date V isits Requested Visits Authorized [id number] Authorized 09/12/2023 09/11/2024 5 5 Referral ID Status Reason Start Date Expiration Date Visits Re quested Visits Authorized [id number] Closed 09/12/2023 09/11/2024 5 5 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 Specialty Diagnoses / Procedures Referred By Contac t Referred To Contact Genetics / MEDICAL GENETICS Diagnoses EDS (Chantell-Danlos syndrome) (HCC) EDS Procedures OFFICE/OUTPATIENT NEW MODERATE MDM 45 MINUTES NEW/CON PATIENT Will Dupree DO [address] [place] [address] Phone: tel: fax: Jasbir Mehta DO [address] [place] [address] Phone: tel: fax: Referral ID Status Reason Start Date Expiration Date Visits Re quested Visits Authorized [id number] Closed 10/08/2024 05/29/2025 1 1 Reason Comments Genetic Testing Zptkoyq-Fsa-axetbuhcnd Care Teams (unrecognized sec tion and content) Shellfish Weigher Relationship Specialty Start Date End Date Bia Franz MD [address] [place] [address] PCP - General Family Medicine 11/03/23 Shellfish Weigher Relationship Specialty Start Date End Date Bia Franz MD [address] [place] [address] PCP - General Family Medicine 11/03/23 Team Status: Active Member Role Status Mikaela Franz MD Primary Care Provider Active Team Status: Inactive Member Role Status Dates Bia Franz MD Primary Care Provider Active Start: March 01, 2024 End: March 01, 2024 Gagandeep Kumar MD Attending Provider Active Star t: March 01, 2024 End: March 01, 2024 Shellfish Weigher Relationship Specialty Start Date End Date Bia Franz MD [address] [place] [address] PCP - General Family Medicine 11/03/23 Team Status: Inactive Member Role Status Mikaela Franz MD Primary Care Provider Active Start: March 15, 2024 End: March 15, 2024 Gagandeep Kumar MD Attending Provider Active Star t: March 15, 2024 End: March 15, 2024 Shellfish Weigher Relationship Specialty Start Date End Date Bia Franz MD [address] [place] [address] PCP - General Family Medicine 11/03/23 Shellfish Weigher Relationship Specialty Start Date End Date Bia Franz MD [address] [place] [facility] [address] PCP - General Family Medicine 11/03/23 Shellfish Weigher Relationship Specialty Start Date End Date Bia Franz MD [address] [place] [facility] [address] PCP - General Family Medicine 11/03/23 Shellfish Weigher Relationship Specialty Start Date End Date Bia Franz MD [address] [place] [facility] [address] PCP - General Family Medicine 11/03/23 Shellfish Weigher Relationship Specialty Start Date End Date Bia Franz MD [address] [facility], [facility] PCP - General Family Medicine 11/03/23 Shellfish Weigher Relationship Specialty Start Date End Date Bia Franz MD [address] [place] [facility] [address] PCP - General Family Medicine 11/03/23 Shellfish Weigher Relationship Specialty Start Date End Date Bia Franz MD [address] [place] [facility] [address] PCP - General Family Medicine 11/03/23 Shellfish Weigher Relationship Specialty Start Date End Date Bia Franz MD [address] [place] [facility] [place] [address] PCP - General Family Medicine 09/21/22 Shellfish Weigher Relationship Specialty Start Date End Date Bia Franz MD [address] [place] [facility] [place] [address] PCP - General Family Medicine 09/21/22 Shellfish Weigher Relationship Specialty Start Date End Date Bia Franz MD [address] [place] [address] PCP - General Family Medicine 09/21/22 Shellfish Weigher Relationship Specialty Start Date End Date Bia Franz MD [address] [place] [address] PCP - General Family Medicine 09/21/22 Shellfish Weigher Relationship Specialty Start Date End Date Bia Franz MD [address] [place] [address] PCP - General Family Medicine 09/21/22 Shellfish Weigher Relationship Specialty Start Date End Date Bia Franz MD [address] [place] [address] PCP - General Family Medicine 09/21/22 Shellfish Weigher Relationship Specialty Start Date End Date Bia Franz MD [address] [place] [address] PCP - General Family Medicine 09/21/22 Shellfish Weigher Relationship Specialty Start Date End Date Bia Franz MD [address] [place] [address] PCP - General Family Medicine 09/21/22 Shellfish Weigher Relationship Specialty Start Date End Date Bia Franz MD PCP - General Family Medicine 09/21/22 Shellfish Weigher Relationship Specialty Start Date End Date Bia Franz MD PCP - General Family Medicine 09/21/22 Shellfish Weigher Relationship Specialty Start Date End Date Bia Franz MD PCP - General Family Medicine 11/03/23 Goals (unrecognized section and content) Goals may be documented in a n alternate sectionNot on filedocumented as of this encounterNot on filedocumented as of this encounterNot on filedocumented as of this encounterNot on filedocumented as of this encounterNot on filedocumented as of this encounterNot on filedocumented as of this encounterNot on filedocumented as of this encounterNot on filedocumented as of this encounterNot on filedocumented as of this encounterNot on filedocumented as of this encounter FOR RECORDS PERTAINING TO PATIENTS WHO ARE [...] BE BASED ON THE PRIMARY CLINICAL RECORDS. [employer] provides no warranty or guarantee of the accuracy or completeness of information in this document.
--- NOTE | 2024-12-20 20:27 | ED.LOWEXI1 ---
HPI HPI - Extremity Injury (Lower) General Chief Complaint: Extremity Injury, Lower Stated Complaint: FALL Time Seen by Provider: 12/20/24 20:12 Source: patient Mode of arrival: walk-in Limitations: no limitations History of Present Illness HPI Narrative: This 34-year-old female presents for evaluation of right foot and ankle pain. The patient states that she fell in the yard on Tuesday while gardening. She twisted her right foot and ankle at that time. She did fall and has some abrasions on her lateral lower leg. She denies striking her head. She has no neck or back pain. She states she has been using rest, ice, compression, elevation, Tylenol and Motrin without significant improvement. She states she has increasing pain with ambulation. The pain is specifically in the lateral aspect of the right foot. She has tenderness over the base of the right fifth metatarsal. She denies the need for a tetanus shot. Related Data Home Medications ?Medication ?Instructions ?Recorded ?Confirmed dextroamphetamine-amphetamine 30 30 mg PO DAILY 02/25/23 12/20/24 mg tablet (Adderall) methocarbamol 750 mg tablet 750 mg PO DAILY 11/30/23 12/20/24 Previous Rx's ?Medication ?Instructions ?Recorded albuterol sulfate 90 mcg/actuation 2 inh inhalation Q4H PRN shortness 02/21/24 aerosol inhaler of breath or wheezing #8.5 grams Allergies Allergy/AdvReac Type Severity Reaction Status Date / Time gabapentin Allergy Unknown Unknown Verified 01/16/24 10:35 oxycodone (From Percocet) AdvReac Unknown Unknown Verified 01/16/24 10:35 Opioid HPI Opioid Management Most Recent Pain and Opioid Data: Last Pain Scale 8 Today, 20:43 Last MAR Pain Assessment Today, 20:43 Review of Systems ROS Status of ROS 10 or more systems reviewed and unremarkable except as noted in history and below [facility] Medical History (Updated 12/20/24 @ 20:52 by Joanne Yeboah MD) Cholecystectomy planned Carpal tunnel syndrome ?G56.00 - Carpal tunnel syndrome, unspecified upper limb (ICD-10) Surgical History History of tonsillectomy and adenoidectomy ?Z90.89 - Acquired absence of other organs (ICD-10) Status post panniculectomy ?Z98.890 - Other specified postprocedural states (ICD-10) History of tubal ligation ?Z98.51 - Tubal ligation status (ICD-10) History of gastric bypass ?Z98.84 - Bariatric surgery status (ICD-10) Social History Little interest or pleasure in doing things: not at all Feeling down, depressed, or hopeless: not at all Exam Narrative Exam Narrative: Vital signs and Nursing Notes reviewed: Patient is afebrile with a normal pulse, blood pressure is elevated at 171/89, she is not hypoxic with pulse ox of 98% on room air General: Overweight adult female, she is awake, alert, oriented, no acute distress, lying comfortably on the stretcher HEENT: Normocephalic atraumatic, mucous membranes are moist and pink, eyes are clear, normal conjunctiva, vision is grossly intact Chest: Lungs are clear to auscultation with good air entry, there is no wheezing rhonchi or rales appreciated no accessory muscle use, patient is speaking in complete sentences-no chest wall tenderness to palpation CVS: Regular rate and rhythm S1-S2, no murmurs rubs or gallops, pulses are brisk and equal bilaterally Extremities: There is tenderness with mild swelling to the base of the right fifth metatarsal. Achilles is intact, there is no lateral or medial malleoli or tenderness. There is an abrasion on the lateral aspect of the right lower leg and right upper leg. There is no sign of local infection, cellulitis or other notable abnormality. Skin: Normal in appearance without rash,pallor, petechiae or purpura-abrasion to right leg as described above, multiple tattoos Neuro: No focal deficits Constitutional Vital Signs, click to edit/add: Last Vital Signs Temp 98.2 F 12/20/24 20:01 Pulse 84 12/20/24 20:01 Resp 18 12/20/24 20:01 BP 171/89 H 12/20/24 20:01 Pulse Ox 98 12/20/24 20:01 O2 Del Method Room Air 12/20/24 20:01 Course Vital Signs Vital signs: Vital Signs Temperature 98.2 F 12/20/24 20:01 Pulse Rate 84 12/20/24 20:01 Respiratory Rate 18 12/20/24 20:01 Blood Pressure 171/89 H 12/20/24 20:01 Pulse Oximetry 98 12/20/24 20:01 Oxygen Delivery Method Room Air 12/20/24 20:01 Temperature 98.2 F 12/20/24 20:01 Pulse Rate 84 12/20/24 20:01 Respiratory Rate 18 12/20/24 20:01 Blood Pressure 171/89 H 12/20/24 20:01 Pulse Oximetry 98 12/20/24 20:01 Oxygen Delivery Method Room Air 12/20/24 20:01 MDM - Extremity Injury (Lower) MDM Narrative Medical decision making narrative: This 34-year-old female presents for evaluation of right foot and ankle pain after falling while working in her yard on Tuesday. She has some mild tenderness over the base of the right metatarsal. She has some abrasions on the lateral aspect of the right lower leg. She states she has used Tylenol, Motrin, rest ice and elevation as well as compression without significant improvement. She declines the need for a tetanus shot. X-ray of the right foot and ankle was reviewed by radiology and is negative for acute findings. She was placed in a Isabel wrap by myself and will be discharged home with prescription for short course of [place] and ibuprofen. Imaging Data x: Radiologist's impression: ITS Impressions Foot X-Ray 12/20/24 20:04 IMPRESSION: No acute findings. 3 views right foot and Adequate alignment. No acute displaced fracture. Unremarkable soft tissues. IMPRESSION: No acute displaced fracture Impression dictated by: Neal Montes M.D. 12/20/2024 8:29 PM Dictation Location: Box Electronically authenticated by: [id number] Y Date: 12/20/2024 20:29 Ankle X-Ray 12/20/24 20:13 IMPRESSION: No acute findings. 3 views right foot and Adequate alignment. No acute displaced fracture. Unremarkable soft tissues. IMPRESSION: No acute displaced fracture Impression dictated by: Neal Montes M.D. 12/20/2024 8:29 PM Dictation Location: Box Electronically authenticated by: [id number] Y Date: 12/20/2024 20:29 Discharge Plan Discharge Chief Complaint: Extremity Injury, Lower Clinical Impression: Right foot sprain Patient Disposition: Home, Self-Care Time of Disposition Decision: 20:52 Prescriptions / Home Meds: No Action dextroamphetamine-amphetamine [Adderall] 30 mg tablet 30 mg PO DAILY methocarbamol 750 mg tablet 750 mg PO DAILY albuterol sulfate 90 mcg/actuation HFA aerosol inhaler 2 inh inhalation Q4H PRN (Reason: shortness of breath or wheezing) Qty: 8.5 0RF Print Language: Maori Instructions: How to Use an Elastic Bandage (ED), Foot Sprain (ED) Referrals: Sunny Maciel MD [Primary Care Provider, Family Practice] - 1 week
[2024-12-20] MEDS: ONDANSETRON 4 MG RAPDIS TABLET SL (20:43)
[2024-12-20] MEDS: HYDROCODONE/ACET 5-325 MG TABLET 1 TAB PO (20:43)
== END 2024-12-20 21:05 | disposition home or self-care (01) ==
PROVIDERS: Emergency Provider Emergency Medicine; PCP Family Medicine
DX: S93.601A Unspecified sprain of right foot, initial encounter (principal); Z98.84 Bariatric surgery status; Z98.51 Tubal ligation status; S80.811A Abrasion, right lower leg, initial encounter; W18.39XA Other fall on same level, initial encounter; Y93.H2 Activity, gardening and landscaping
CPT/HCPCS: 29515; 73600; 73630; 99284; Q0162